=== PATIENT | male | born 1945 | race Caucasian/White ===

== ENCOUNTER 2016-08-02 15:13 | Inpatient (IN) | payer MEDICARE, OTHER ==
[2016-08-02] VITALS (7 sets, daily range): BP systolic 116–129; BP diastolic 60–84; PULSE 89–96; RESP 18–24; TEMP 97.5–98.2; O2SAT 93–96
[~2016-08-02] VITALS: Ht 185.4 cm; Wt 91.5 kg
--- NOTE | 2016-08-02 16:40 | PD ---
HPI Chief Complaint: Respiratory Symptoms Time Seen by Provider: 16:35 Travel History International Travel<30 days: No Contact w/Intl Traveler<30days: No Traveled to known affect area: No History of Present Illness HPI 70-year-old male visiting from [place] with his family presents the emergency department with several day history of shortness of breath and weakness. Patient states he had a head cold last week which is seemingly improved. Patient's family has placed him on O2 via nasal cannula over the past 2 days as they were traveling, and his sister is on oxygen normally. Patient denies fever, chills, or productive cough. Patient denies chest pain. Patient has a history of CHF in the past and has an implanted defibrillator/ pacemaker, which he states was just interrogated approximately one week ago. Patient denies abdominal pain, nausea, vomiting, or diarrhea. Patient states his shortness of breath is worse with exertion. His appetite is normal. States been sleeping well. Patient is allergic to sulfa and iodine needed to contrast media. [facility] Social History Alcohol Use: No Tobacco Use: No Substance Use: No Allergies-Medications (Allergen,Severity, Reaction): Coded Allergies: Iodinated Contrast Media (Verified Allergy, Unknown, 08/02/16) Sulfa (Verified Allergy, Unknown, 08/02/16) Reported Meds & Prescriptions Reported Meds & Active Scripts Active Reported Travatan Z Opth Drops (Travoprost) 0.004 % Soln 1 Drop RIGHT EYE HS Carvedilol 6.25 Mg Tab 6.25 Mg PO BID Zocor (Simvastatin) 20 Mg Tab 20 Mg PO HS Nitroglycerin SL (Nitroglycerin) 0.4 Mg Subl 0.4 Mg SL DIRECTED PRN ONE TABLET UNDER THE TONGUE NEEDED FOR CHEST PAIN, MAY REPEAT EVERY FIVE MINUTES FOR A TOTAL OF 3 DOSES OR CALL 911 IF NO RELIEF Centrum Silver Adult 50+ (Multiple Vitamins W/ Minerals) 1 Tab Tab 1 Tab PO DAILY Levothyroxine (Levothyroxine Sodium) 50 Mcg Tab 50 Mcg PO DAILY Levemir Flextouch Pen Inj (Insulin Detemir) 300 unit/3 ML Pen 40 Units SQ HS Isosorbide Mononitrate ER (Isosorbide Mononitrate) 30 Mg Adriana 30 Mg PO DAILY Lasix (Furosemide) 40 Mg Tab 40 Mg PO DAILY Plavix (Clopidogrel Bisulfate) 75 Mg Tab 75 Mg PO DAILY Azopt Opth Drops (Brinzolamide) 1% Susp 1 Drop RIGHT EYE BID Combigan Opth Drops (Brimonidine-Timolol Opth Drops) 0.2-0.5% Soln 1 Drop RIGHT EYE Q12HR Aspirin EC Low Dose (Aspirin) 81 Mg Tabec 81 Mg PO DAILY Refresh Opth Drops (Polyvinyl Alcohol-Povidone Opth Drops) 1.4-0.6% Drops 1 Drop EACH EYE TID PRN Review of Systems Except as stated in HPI: all other systems reviewed are Neg General / Constitutional: No: Fever, Chills Eyes: No: Visual changes HENT: No: Headaches Cardiovascular: Positive: Dyspnea on exertion, No: Chest Pain or Discomfort, Palpitations, Irregular Rhythm, Tachycardia, Diaphoresis, Syncope, Varicosities , Edema, Cyanosis, Varicosities, Phlebitis, Claudication Respiratory: Positive: Shortness of Breath, No: Cough, Wheezing, Sneezing, Orthopnea, Hemoptysis, Night Sweats, Pleuritic Pain Gastrointestinal: No: Nausea, Vomiting, Diarrhea, Abdominal Pain Genitourinary: No: Dysuria Musculoskeletal: No: Pain Skin: No Rash Neurologic: No: Weakness Psychiatric: No: Depression Endocrine: No: Polydipsia Hematologic/Lymphatic: No: Easy Bruising Physical Exam Narrative GENERAL: Patient appears in no acute distress. O2 sat on room air is 88%. SKIN: Warm and dry. Normal color. Normal turgor HEAD: Atraumatic. Normocephalic. EYES: Pupils equal and round. No scleral icterus. No injection or drainage. ENT: No nasal bleeding or discharge. Mucous membranes pink and moist. TMs are clear bilaterally. No sinus tenderness. No significant pharyngeal swelling or irritation. Airway is patent. NECK: Trachea midline. No JVD. Neck is supple and nontender. CARDIOVASCULAR: Regular rate and rhythm. No murmurs gallops or rubs appreciated. RESPIRATORY: No accessory muscle use. Breath sounds equal bilaterally. Breath sounds are distant bilaterally. No significant wheezes or crackles appreciated with auscultation. GASTROINTESTINAL: Abdomen soft, non-tender, nondistended. Hepatic and splenic margins not palpable. MUSCULOSKELETAL: Extremities without clubbing, cyanosis, or edema. No obvious deformities. NEUROLOGICAL: Awake and alert. No obvious cranial nerve deficits. Motor grossly within normal limits. Five out of 5 muscle strength in the arms and legs. Normal speech. PSYCHIATRIC: Appropriate mood and affect; insight and judgment normal. Data Data Last Documented VS Vital Signs Date Time Temp Pulse Resp B/P Pulse Ox O2 Delivery O2 Flow Rate FiO2 08/02/16 18:10 96 121/76 94 Nasal Cannula 2 08/02/16 16:24 98.2 08/02/16 15:15 20 Orders Complete Blood Count With Diff (08/02/16 16:32) Comprehensive Metabolic Panel (08/02/16 16:32) B-Type Natriuretic Peptide (08/02/16 16:32) Act Partial Throm Time (Ptt) (08/02/16 16:32) Prothrombin Time / Inr (Pt) (08/02/16 16:32) Magnesium (Mg) (08/02/16 16:32) Ckmb (Isoenzyme) Profile (08/02/16 16:32) Troponin I (08/02/16 16:32) Iv Access Insert/Monitor (08/02/16 16:32) Electrocardiogram (08/02/16 16:32) Ecg Monitoring (08/02/16 16:32) Oximetry (08/02/16 16:32) Oxygen Administration (08/02/16 16:32) Chest, Single Ap (08/02/16 16:32) Sodium Chloride 0.9% Flush (Ns Flush) (08/02/16 16:45) Blood Gas Venous (Vbg) (08/02/16 16:32) Aspirin Chew (Aspirin Chew) (08/02/16 17:45) Nitroglycerin 2% Oint (Nitroglycerin 2% (08/02/16 17:45) D-Dimer (08/02/16 17:54) Heparin Infusion DARRIAN.Q1H (08/02/16 18:01) Heparin Inj (Heparin Inj) (08/02/16 18:15) Heparin-D5w Inj (Heparin-D5w Inj) (08/02/16 18:15) Act Partial Throm Time (Ptt) (08/02/16 18:01) Prothrombin Time / Inr (Pt) (08/02/16 18:01) Cbc No Diff, Includes Plts (08/02/16 18:01) Cbc No Diff, Includes Plts (08/05/16 06:00) Act Partial Throm Time (Ptt) (08/03/16 01:01) Occult Blood (Hemoccult) Stool (08/02/16 18:01) Admit Order (Ed Use Only) (08/02/16 18:09) Consult Cardiology (08/02/16 ) Labs Laboratory Tests Test 08/02/16 08/02/16 17:00 17:05 Blood Gas Puncture Site DRAWN BY RN Blood Gas Patient Temperature 98.6 Venous Blood pH 7.34 Venous Blood Partial Pressure 59 mmHg CO2 Venous Blood Partial Pressure 39 mmHg O2 Venous Blood HCO3 31 mmol/L Venous Blood Oxygen Saturation 69 % Venous Blood Oxygen Content 12.0 Vol % Venous Blood Base Excess 5.1 mmol/L Oxygen Delivery Device ROOM AIR Blood Gas Inspired Oxygen 21 % White Blood Count 9.1 TH/MM3 Red Blood Count 3.74 MIL/MM3 Hemoglobin 12.3 GM/DL Hematocrit 36.9 % Mean Corpuscular Volume 98.7 FL Mean Corpuscular Hemoglobin 32.9 PG Mean Corpuscular Hemoglobin 33.3 % Concent Red Cell Distribution Width 15.0 % Platelet Count 213 TH/MM3 Mean Platelet Volume 8.9 FL Neutrophils (%) (Auto) 62.6 % Lymphocytes (%) (Auto) 19.6 % Monocytes (%) (Auto) 11.4 % Eosinophils (%) (Auto) 5.0 % Basophils (%) (Auto) 1.4 % Neutrophils # (Auto) 5.7 TH/MM3 Lymphocytes # (Auto) 1.8 TH/MM3 Monocytes # (Auto) 1.0 TH/MM3 Eosinophils # (Auto) 0.5 TH/MM3 Basophils # (Auto) 0.1 TH/MM3 CBC Comment DIFF FINAL Differential Comment Prothrombin Time 10.6 SEC Prothromb Time International 1.0 RATIO Ratio Activated Partial 31.4 SEC Thromboplast Time Sodium Level 134 MEQ/L Potassium Level 4.4 MEQ/L Chloride Level 97 MEQ/L Carbon Dioxide Level 32.4 MEQ/L Anion Gap 5 MEQ/L Blood Urea Nitrogen 35 MG/DL Creatinine 1.71 MG/DL Estimat Glomerular Filtration 40 ML/MIN Rate Random Glucose 197 MG/DL Calcium Level 9.0 MG/DL Magnesium Level 2.1 MG/DL Total Bilirubin 0.8 MG/DL Aspartate Amino Transf 28 U/L (AST/SGOT) Alanine Aminotransferase 14 U/L (ALT/SGPT) Alkaline Phosphatase 49 U/L Total Creatine Kinase 62 U/L Troponin I 3.18 NG/ML Total Protein 7.5 GM/DL Albumin 3.0 GM/DL MDM Medical Decision Making Medical Screen Exam Complete: Yes Emergency Medical Condition: Yes Differential Diagnosis Hypoxemia. Dyspnea. Exertional dyspnea. CHF. Cardiac syndrome. PE. Narrative Course Patient is medically stable at time of exam. Patient is placed on 4 L oxygen via nasal cannula which brings his O2 sat to 94. EKG is ordered. Labs ordered including CBC, CMP, cardiac panel, proBNP. Venous blood gas is ordered. Chest x-ray is ordered. Chest x-ray shows borderline prominent heart size with some interstitial edema characteristics of some degree of vascular congestion or volume overload. #2 minimal atelectatic changes above the left hemidiaphragm per radiologist. CBC shows mild anemia with a hemoglobin of 12.3. Otherwise no significant findings. Venous blood gas shows a PCO2 of 59, HCO3 of 31, O2 saturation of 69, base excess of 5.1. And a pH of 7.34. Chemistries significant for BUN of 35, creatinine 1.71, random glucose of 197, positive troponin 3.18, and slightly low sodium of 134. Carbon dioxide elevated at 32.4. EKG shows electronic ventricular pacemaker rhythm. Patient is discussed with Dr. Lee, and she sees the patient as well. Patient is given aspirin 324 mg by mouth as well as 1 inch nitroglycerin ointment topically. D-dimer is added to his lab work. Call was placed to the hospitalist for admission. 1810 hrs. patient was discussed with Dr. Espinoza, who recommended admission for the patient. Orders for heparinization are placed. Call was placed to Dr. Love, the public stenographer admission discharge rn today and the patient was discussed. Consult placed for Dr. Love. Diagnosis Primary Impression: Elevated troponin Additional Impressions: Hypoxic Dyspnea on exertion Admitting Information Admitting Physician Requests: Admit Condition: Stable Samuel Mclaughlin Aug 02, 2016 16:40
[2016-08-02] MEDS ORDERED: SODIUM CHLORIDE 0.9% FLUSH 10 ML FLUSH IVF PRN (16:45)
--- NOTE | 2016-08-02 17:16 | RADRPT ---
EXAM DATE/TIME: 08/02/2016 16:39 [facility] COMPARISON: No previous studies available for comparison. INDICATIONS : Shortness of breath. MEDICAL HISTORY : None. SURGICAL HISTORY : Pacemaker. CABG. ENCOUNTER: Initial ACUITY: 3 days PAIN SCORE: 0/10 LOCATION: Bilateral chest FINDINGS: A single view of the chest demonstrates mild interstitial prominence bilaterally suggesting some degr ee of vascular congestion or volume overload. Minimal atelectatic changes above the left hemidiaphrag m. Surgical clips and median sternotomy wires are characteristic of prior CABG. Heart size is borderl ine prominent. There is a left subclavian bipolar pacer which is radiographically intact. Osseous str uctures are intact as well. CONCLUSION: 1. Borderline prominent heart size with some interstitial edema characteristic of some degree of vasc ular congestion or volume overload. 2. Minimal atelectatic changes above the left hemidiaphragm. Ken Khanna MD on August 02, 2016 at 17:12 Board Certified Radiologist. This report was verified electronically.
[2016-08-02 17:19] LABS: BLOOD GAS VENOUS BASE EXCESS 5.1 mmol/L (-2-2); BLOOD GAS VENOUS HCO3 31 mmol/L (22-26); BLOOD GAS VENOUS O2 HGB SAT 69 % (70-76); BLOOD GAS VENOUS PCO2 59 mmHg (44-48); BLOOD GAS VENOUS PO2 39 mmHg (35-40); BLOOD GAS VENOUS pH 7.34 (7.360-7.400); TEMP CORR TO 98.6
[2016-08-02 17:20] LABS: AUTOMATED NEUTROPHIL # 5.7 TH/MM3 (1.8-7.7); BASOPHIL # 0.1 TH/MM3 (0-0.2); BASOPHIL % 1.4 % (0.0-2.0); EOSINOPHIL # 0.5 TH/MM3 (0-0.4); HEMATOCRIT 36.9 % (39.0-51.0); HEMO FLAGS DIFF FINAL; LYMPH % 19.6 % (9.0-44.0); LYMPHOCYTE # 1.8 TH/MM3 (1.0-4.8); MEAN CELL VOLUME 98.7 FL (80.0-100.0); MEAN CORPUSCULAR HEMOGLOBIN 32.9 PG (27.0-34.0); MEAN CORPUSCULAR HGB CONC 33.3 % (32.0-36.0); MONO % 11.4 % (0.0-8.0); NEUT % 62.6 % (16.0-70.0); PLATELET COUNT 213 TH/MM3 (150-450); RED BLOOD COUNT 3.74 MIL/MM3 (4.50-5.90); WHITE BLOOD COUNT 9.1 TH/MM3 (4.0-11.0)
[2016-08-02 17:20] LABS: CRITICAL VALUE YES; FIO2 21 %; OXYGEN DEVICE ROOM AIR; STAT YES
[2016-08-02] MEDS ORDERED: AZOP1SUS RIGHT EYE (17:27)
[2016-08-02] MEDS ORDERED: COMB0.2S RIGHT EYE (17:27)
[2016-08-02] MEDS ORDERED: FURO1TAB60 PO (17:27)
[2016-08-02] MEDS ORDERED: LEVO50TA4 PO (17:27)
[2016-08-02] MEDS ORDERED: ASPI81TA2 PO (17:27)
[2016-08-02] MEDS ORDERED: TRAV0.00 RIGHT EYE (17:27)
[2016-08-02] MEDS ORDERED: ZOCO20TA PO (17:27)
[2016-08-02] MEDS ORDERED: NITR1SUB3 SL (17:27)
[2016-08-02] MEDS ORDERED: ISOS30TA3 PO (17:27)
[2016-08-02] MEDS ORDERED: MULT1TAB PO (17:27)
[2016-08-02] MEDS ORDERED: INSU1INJ5 SQ (17:27)
[2016-08-02] MEDS ORDERED: CARV6.252 PO (17:27)
[2016-08-02] MEDS ORDERED: PLAV75TA29 PO (17:27)
[2016-08-02] MEDS ORDERED: REFRDRO EACH EYE (17:27)
[2016-08-02 17:33] LABS: ANION GAP 5 MEQ/L (5-15); AST (GOT) 28 U/L (15-37); BICARBONATE 32.4 MEQ/L (21.0-32.0); BLOOD UREA NITROGEN 35 MG/DL (7-18); CHLORIDE 97 MEQ/L (98-107); GLOMERULAR FILTRATION RATE 40 ML/MIN (>89); MAGNESIUM 2.1 MG/DL (1.5-2.5); POTASSIUM 4.4 MEQ/L (3.5-5.1); SODIUM (NA) 134 MEQ/L (136-145)
[2016-08-02 17:37] LABS: ALKALINE PHOSPHATASE 49 U/L (45-117); ALT (GPT) 14 U/L (12-78); CREATINE KINASE 62 U/L (39-308); TOTAL BILIRUBIN ADULT 0.8 MG/DL (0.2-1.0)
[2016-08-02 17:38] LABS: APTT (PATIENT) 31.4 SEC (24.3-30.1); PROTHROMBIN TIME - PATIENT 10.6 SEC (9.8-11.6)
[2016-08-02] MEDS ORDERED: NITROGLYCERIN 2% OINT 1 GM PACKET TOP ONE (17:45)
[2016-08-02] MEDS ORDERED: ASPIRIN 81 MG CHEW TAB PO ONE (17:45)
[2016-08-02] MEDS ORDERED: HEPARIN SODIUM - IV 10,000 UNITS/10 ML VIAL IV ONE (18:15)
[2016-08-02] MEDS ORDERED: SODIUM CHLORIDE 0.9% FLUSH 10 ML FLUSH IV FLUSH PRN (19:15)
[2016-08-02] MEDS ORDERED: POLYVINYL ALC-POVIDONE 1.4/0.6% PF OPTH SOLN 0.4 ML 30 CT EACH EYE PRN (19:15)
[2016-08-02] MEDS ORDERED: ACETAMINOPHEN/HYDROcodone 325 MG/5 MG TAB PO PRN (19:15)
[2016-08-02] MEDS ORDERED: GLUCAGON 1 MG/ML VIAL OTHER PRN (19:15)
[2016-08-02] MEDS ORDERED: SENNOSIDES 8.6 MG TAB PO PRN (19:15)
[2016-08-02] MEDS ORDERED: DEXTROSE 50% IN WATER 50 ML VIAL(D50) IV PUSH PRN (19:15)
[2016-08-02] MEDS ORDERED: NITROGLYCERIN 0.4 MG SL 25 TABS/BTL SL PRN (19:15)
[2016-08-02] MEDS ORDERED: BISACODYL 10 MG SUPP PR PRN (19:15)
[2016-08-02] MEDS ORDERED: ACETAMINOPHEN 325 MG TAB PO PRN ×2 (19:15)
[2016-08-02] MEDS ORDERED: NALOXONE HCL 0.4 MG/ML AMP IV PRN (19:15)
[2016-08-02] MEDS ORDERED: MORPHINE SULFATE 4 MG/ML INJ IV PRN (19:15)
[2016-08-02] MEDS: HEPARIN-D5W INJ 250 ML IV SCH (19:19)
--- NOTE | 2016-08-02 19:27 | PD ---
Data Data Last Documented VS Vital Signs Date Time Temp Pulse Resp B/P Pulse Ox O2 Delivery O2 Flow Rate FiO2 08/02/16 18:10 96 121/76 94 Nasal Cannula 2 08/02/16 16:24 98.2 08/02/16 15:15 20 Orders Complete Blood Count With Diff (08/02/16 16:32) Comprehensive Metabolic Panel (08/02/16 16:32) B-Type Natriuretic Peptide (08/02/16 16:32) Act Partial Throm Time (Ptt) (08/02/16 16:32) Prothrombin Time / Inr (Pt) (08/02/16 16:32) Magnesium (Mg) (08/02/16 16:32) Ckmb (Isoenzyme) Profile (08/02/16 16:32) Troponin I (08/02/16 16:32) Iv Access Insert/Monitor (08/02/16 16:32) Electrocardiogram (08/02/16 16:32) Ecg Monitoring (08/02/16 16:32) Oximetry (08/02/16 16:32) Oxygen Administration (08/02/16 16:32) Chest, Single Ap (08/02/16 16:32) Sodium Chloride 0.9% Flush (Ns Flush) (08/02/16 16:45) Blood Gas Venous (Vbg) (08/02/16 16:32) Aspirin Chew (Aspirin Chew) (08/02/16 17:45) Nitroglycerin 2% Oint (Nitroglycerin 2% (08/02/16 17:45) D-Dimer (08/02/16 17:54) Heparin Infusion DARRIAN.Q1H (08/02/16 18:01) Heparin Inj (Heparin Inj) (08/02/16 18:15) Heparin-D5w Inj (Heparin-D5w Inj) (08/02/16 18:15) Act Partial Throm Time (Ptt) (08/02/16 18:01) Prothrombin Time / Inr (Pt) (08/02/16 18:01) Cbc No Diff, Includes Plts (08/02/16 18:01) Cbc No Diff, Includes Plts (08/05/16 06:00) Act Partial Throm Time (Ptt) (08/03/16 01:01) Occult Blood (Hemoccult) Stool (08/02/16 18:01) Admit Order (Ed Use Only) (08/02/16 18:09) Consult Cardiology (08/02/16 ) Labs Laboratory Tests Test 08/02/16 08/02/16 08/02/16 17:00 17:05 17:50 Blood Gas Puncture Site DRAWN BY RN Blood Gas Patient Temperature 98.6 Venous Blood pH 7.34 Venous Blood Partial Pressure 59 mmHg CO2 Venous Blood Partial Pressure 39 mmHg O2 Venous Blood HCO3 31 mmol/L Venous Blood Oxygen Saturation 69 % Venous Blood Oxygen Content 12.0 Vol % Venous Blood Base Excess 5.1 mmol/L Oxygen Delivery Device ROOM AIR Blood Gas Inspired Oxygen 21 % White Blood Count 9.1 TH/MM3 Red Blood Count 3.74 MIL/MM3 Hemoglobin 12.3 GM/DL Hematocrit 36.9 % Mean Corpuscular Volume 98.7 FL Mean Corpuscular Hemoglobin 32.9 PG Mean Corpuscular Hemoglobin 33.3 % Concent Red Cell Distribution Width 15.0 % Platelet Count 213 TH/MM3 Mean Platelet Volume 8.9 FL Neutrophils (%) (Auto) 62.6 % Lymphocytes (%) (Auto) 19.6 % Monocytes (%) (Auto) 11.4 % Eosinophils (%) (Auto) 5.0 % Basophils (%) (Auto) 1.4 % Neutrophils # (Auto) 5.7 TH/MM3 Lymphocytes # (Auto) 1.8 TH/MM3 Monocytes # (Auto) 1.0 TH/MM3 Eosinophils # (Auto) 0.5 TH/MM3 Basophils # (Auto) 0.1 TH/MM3 CBC Comment DIFF FINAL Differential Comment Prothrombin Time 10.6 SEC Prothromb Time International 1.0 RATIO Ratio Activated Partial 31.4 SEC Thromboplast Time Sodium Level 134 MEQ/L Potassium Level 4.4 MEQ/L Chloride Level 97 MEQ/L Carbon Dioxide Level 32.4 MEQ/L Anion Gap 5 MEQ/L Blood Urea Nitrogen 35 MG/DL Creatinine 1.71 MG/DL Estimat Glomerular Filtration 40 ML/MIN Rate Random Glucose 197 MG/DL Calcium Level 9.0 MG/DL Magnesium Level 2.1 MG/DL Total Bilirubin 0.8 MG/DL Aspartate Amino Transf 28 U/L (AST/SGOT) Alanine Aminotransferase 14 U/L (ALT/SGPT) Alkaline Phosphatase 49 U/L Total Creatine Kinase 62 U/L Troponin I 3.18 NG/ML Total Protein 7.5 GM/DL Albumin 3.0 GM/DL B-Type Natriuretic Peptide 1063 PG/ML [facility] Supervised Visit with ANA: Yes Narrative Course The history, exam, and medical decision-making in the associated midlevel provider note were completed with my assistance. I reviewed and agree with the findings presented. I attest that I had a [id number] encounter with the patient on the same day, and personally performed and documented my assessment and findings in the medical record. *My assessment and Findings: This is a 70-year-old male who has a history of heart disease who presents to the emergency department with 3 days of increasing shortness of breath. He was found to have a troponin of 3. EKG was a paced rhythm and nonischemic. I suspect the patient's symptoms are in the setting of an nSTEMI, however pulmonary embolism continues to be on the differential. Patient will be admitted and anticoagulated Diagnosis Primary Impression: Elevated troponin Additional Impressions: Dyspnea on exertion Hypoxic Condition: Stable Natalee Lee MD Aug 02, 2016 19:27
--- NOTE | 2016-08-02 19:42 | HHI.HP ---
HPI Service [facility] Primary Care Physician No Primary Care Physician Admission Diagnosis Elevated Troponin/Hypoxic Diagnoses: Chief Complaint: Shortness of breath Travel History International Travel<30 Days: No Contact w/Intl Traveler <30 Da: No Traveled to Known Affected Are: No History of Present Illness This is a 70-year-old male with a history of congestive heart failure, cardiomyopathy status post AICD, coronary artery disease status post bypass, PAD , diabetes mellitus, chronic kidney disease stage is not known, hypertension, hyperlipidemia, hypothyroidism and glaucoma. He presents to the emergency department with several day history of shortness of breath and weakness. He has dyspnea on exertion, orthopnea but denies PND, weight gain and lower extremity swelling. Claims he is compliant with his medications as well as fluid and salt restriction. Patient states he had a head cold last week which is seemingly improved. Patient's family has placed him on O2 via nasal cannula over the past 2 days as they were traveling, and his sister is on oxygen normally. Patient denies fever, chills, or chest pain. Patient has been coughing. In the emergency department, he was found to have elevated troponin and was given aspirin and started on IV heparin drip after discussion with cardiology. Patient is not a good historian but reports he had unremarkable stress test this year. Patient has a history of CHF and has an implanted defibrillator/pacemaker, which he states was just interrogated approximately one week ago. Patient denies abdominal pain, nausea, vomiting, or diarrhea. Review of Systems Constitutional: COMPLAINS OF: Fatigue, DENIES: Diaphoretic episodes, Fever, Weight gain, Weight loss, Chills, Dizziness, Change in appetite, Night Sweats Endocrine: DENIES: Heat/cold intolerance, Polydipsia, Polyuria, Polyphagia Eyes: DENIES: Blurred vision, Diplopia, Vision loss, Photosensitivity Ears, nose, mouth, throat: DENIES: Tinnitus, Vertigo, Throat pain, Hoarseness, Epistaxis, Odynophagia Respiratory: COMPLAINS OF: Cough, Sputum production, Shortness of breath, DENIES: Wheezing, Hemoptysis Cardiovascular: COMPLAINS OF: Dyspnea on Exertion, DENIES: Chest pain, Palpitations, Syncope, PND, Lower Extremity Edema, Orthopnea, Claudication Gastrointestinal: DENIES: Abdominal pain, Black stools, Bloody stools, Constipation, Diarrhea, Nausea, Vomiting, Difficulty Swallowing, Anorexia Genitourinary: DENIES: Urinary frequency, Urinary incontinence, Urgency, Hematuria, Dysuria, Nocturia, Penile Discharge Integumentary: DENIES: Rash Neurologic: DENIES: Headache, Localized weakness, Seizures, Tremor, Poor Balance Psychiatric: DENIES: Anxiety, Confusion, Depression, Hallucinations, Agitation , Suicidal Ideation, Homicidal Ideation, Delusions Past Family Social History Past Medical History As previously mentioned Past Surgical History Eye surgery Reported Medications Travatan Z Opth Drops (Travoprost) 0.004 % Soln 1 Drop RIGHT EYE HS Carvedilol 6.25 Mg Tab 6.25 Mg PO BID Zocor (Simvastatin) 20 Mg Tab 20 Mg PO HS Nitroglycerin SL (Nitroglycerin) 0.4 Mg Subl 0.4 Mg SL DIRECTED PRN ONE TABLET UNDER THE TONGUE NEEDED FOR CHEST PAIN, MAY REPEAT EVERY FIVE MINUTES FOR A TOTAL OF 3 DOSES OR CALL 911 IF NO RELIEF [facility] Adult 50+ (Multiple Vitamins W/ Minerals) 1 Tab Tab 1 Tab PO DAILY Levothyroxine (Levothyroxine Sodium) 50 Mcg Tab 50 Mcg PO DAILY Levemir Flextouch Pen Inj (Insulin Detemir) 300 unit/3 ML Pen 40 Units SQ HS Isosorbide Mononitrate ER (Isosorbide Mononitrate) 30 Mg Adriana 30 Mg PO DAILY Lasix (Furosemide) 40 Mg Tab 40 Mg PO DAILY Plavix (Clopidogrel Bisulfate) 75 Mg Tab 75 Mg PO DAILY Azopt Opth Drops (Brinzolamide) 1% Susp 1 Drop RIGHT EYE BID Combigan Opth Drops (Brimonidine-Timolol Opth Drops) 0.2-0.5% Soln 1 Drop RIGHT EYE Q12HR Aspirin EC Low Dose (Aspirin) 81 Mg Tabec 81 Mg PO DAILY Refresh Opth Drops (Polyvinyl Alcohol-Povidone Opth Drops) 1.4-0.6% Drops 1 Drop EACH EYE TID PRN Allergies: Coded Allergies: Iodinated Contrast Media (Verified Allergy, Unknown, 08/02/16) Sulfa (Verified Allergy, Unknown, 08/02/16) Family History Thyroid disease Social History Does not smoke or drink Physical Exam Vital Signs Vital Signs Date Time Temp Pulse Resp B/P Pulse Ox O2 Delivery O2 Flow Rate FiO2 08/02/16 18:10 96 121/76 94 Nasal Cannula 2 08/02/16 16:38 95 Nasal Cannula 3 08/02/16 16:24 98.2 89 116/68 95 Nasal Cannula 3 08/02/16 15:15 97.7 91 20 129/60 93 Nasal Cannula 2 Physical Exam GENERAL: This is a well-nourished, well-developed patient, in no apparent distress on nasal cannula. SKIN: No rashes, ecchymoses or lesions. Cool and dry. HEAD: Atraumatic. Normocephalic. No temporal or scalp tenderness. EYES: Pupils equal round and reactive. Extraocular motions intact. No scleral icterus. No injection or drainage. ENT: Nose without bleeding, purulent drainage or septal hematoma. Throat without erythema, tonsillar hypertrophy or exudate. Uvula midline. Airway patent. NECK: Trachea midline.+ JVD . Supple, nontender, no meningeal signs. CARDIOVASCULAR: Regular rate and rhythm without murmurs, gallops, or rubs. Distant heart sounds with AICD in place RESPIRATORY: Decreased Breath sounds equal bilaterally. No wheezes or rhonchi. Right basal crackle GASTROINTESTINAL: Abdomen soft, non-tender, nondistended. No guarding. MUSCULOSKELETAL: Extremities without clubbing, cyanosis but with trace leg edema. No joint tenderness, effusion, or edema noted. No calf tenderness. Negative Homans sign bilaterally. NEUROLOGICAL: Awake and alert. Cranial nerves II through XII intact. Motor and sensory grossly within normal limits. Five out of 5 muscle strength in all muscle groups. Normal speech. Laboratory Laboratory Tests Test 08/02/16 08/02/16 08/02/16 08/02/16 17:00 17:05 17:50 18:17 Blood Gas Puncture Site DRAWN BY RN Blood Gas Patient Temperature 98.6 Venous Blood pH 7.34 Venous Blood Partial Pressure 59 CO2 Venous Blood Partial Pressure 39 O2 Venous Blood HCO3 31 Venous Blood Oxygen Saturation 69 Venous Blood Oxygen Content 12.0 Venous Blood Base Excess 5.1 Oxygen Delivery Device ROOM AIR Blood Gas Inspired Oxygen 21 White Blood Count 9.1 Red Blood Count 3.74 Hemoglobin 12.3 Hematocrit 36.9 Mean Corpuscular Volume 98.7 Mean Corpuscular Hemoglobin 32.9 Mean Corpuscular Hemoglobin 33.3 Concent Red Cell Distribution Width 15.0 Platelet Count 213 Mean Platelet Volume 8.9 Neutrophils (%) (Auto) 62.6 Lymphocytes (%) (Auto) 19.6 Monocytes (%) (Auto) 11.4 Eosinophils (%) (Auto) 5.0 Basophils (%) (Auto) 1.4 Neutrophils # (Auto) 5.7 Lymphocytes # (Auto) 1.8 Monocytes # (Auto) 1.0 Eosinophils # (Auto) 0.5 Basophils # (Auto) 0.1 CBC Comment DIFF FINAL Differential Comment Prothrombin Time 10.6 Prothromb Time International 1.0 Ratio Activated Partial 31.4 Thromboplast Time Sodium Level 134 Potassium Level 4.4 Chloride Level 97 Carbon Dioxide Level 32.4 Anion Gap 5 Blood Urea Nitrogen 35 Creatinine 1.71 Estimat Glomerular Filtration 40 Rate Random Glucose 197 Calcium Level 9.0 Magnesium Level 2.1 Total Bilirubin 0.8 Aspartate Amino Transf 28 (AST/SGOT) Alanine Aminotransferase 14 (ALT/SGPT) Alkaline Phosphatase 49 Total Creatine Kinase 62 Troponin I 3.18 Total Protein 7.5 Albumin 3.0 B-Type Natriuretic Peptide 1063 D-Dimer Quantitative (PE/DVT) 3.12 Result Diagram: 08/02/16 1705 08/02/16 1705 Imaging EKG tracing interpreted by me with paced rhythm Chest x-ray film interpreted by me with prominent heart size with interstitial edema Last Impressions Chest X-Ray 08/02/16 1632 Signed Impressions: Service Date/Time: Tuesday, August 02, 2016 16:39 - CONCLUSION: 1. Borderline prominent heart size with some interstitial edema characteristic of some degree of vascular congestion or volume overload. 2. Minimal atelectatic changes above the left hemidiaphragm. Ken Khanna MD Assessment and Plan Problem List: (1) Dyspnea on exertion ICD Code: R06.09 Status: Acute (2) Elevated troponin ICD Code: R74.8 Status: Acute Assessment and Plan This is a 70-year-old male with a history of congestive heart failure, cardiomyopathy status post AICD, coronary artery disease status post bypass, PAD , diabetes mellitus, chronic kidney disease stage is not known, hypertension, hyperlipidemia, hypothyroidism and glaucoma. He presents to the emergency department with several day history of shortness of breath and weakness. He has dyspnea on exertion, orthopnea but denies PND, weight gain and lower extremity swelling. Claims he is compliant with his medications as well as fluid and salt restriction. Patient states he had a head cold last week which is seemingly improved. Patient's family has placed him on O2 via nasal cannula over the past 2 days as they were traveling, and his sister is on oxygen normally. Patient denies fever, chills, or chest pain. Patient has been coughing. In the emergency department, he was found to have elevated troponin and was given aspirin and started on IV heparin drip after discussion with cardiology. Patient is not a good historian but reports he had unremarkable stress test this year. Patient has a history of CHF and has an implanted defibrillator/pacemaker, which he states was just interrogated approximately one week ago. Patient denies abdominal pain, nausea, vomiting, or diarrhea. Acute on chronic systolic heart failure exacerbation with history of cardiomyopathy status post AICD. Start IV diuresis with Lasix 40 mg every 12H and monitor response. Check BMP in the morning. CHF education, strict I and O , monitor weight and check echocardiogram Acute on chronic kidney disease stage is not known. Nonoliguric. Patient and family aware it might get worse with diuresis. Avoid nephrotoxins Elevated troponin with a history of CAD status post bypass. Patient denies chest pain. EKG with paced rhythm. Trend cardiac enzymes and continue aspirin , nitrates, Coreg and heparin drip. Cardiology consult Normocytic normochromic anemia . No gross bleeding. Repeat CBC in the morning Elevated d-dimer secondary to above. Patient denies chest pain. Consider VQ scan unable to do CTA secondary to kidney disease. Patient already on heparin Chronic medical conditions of PAD, diabetes mellitus, hypertension, hyperlipidemia, hypothyroidism and glaucoma. Continue outpatient medications as appropriate. Monitor fingersticks with sliding scale coverage DVT prophylaxis patient on heparin drip with SCD Code Status full Discussed Condition With pt and family Physician Certification 2 Midnight Certification Type: Admission for Inpatient Services Order for Inpatient Services The services are ordered in accordance with Medicare regulations or non- Medicare payer requirements, as applicable. In the case of services not specified as inpatient-only, they are appropriately provided as inpatient services in accordance with the 2-midnight benchmark. Estimated LOS (days): 2 days is the estimated time the patient will need to remain in the hospital, assuming treatment plan goals are met and no additional complications. Post-Hospital Plan: Not yet determined Abando,Vince MD Aug 02, 2016 19:42 Esvin Guallpa MD Aug 02, 2016 19:42
[2016-08-02] MEDS ORDERED: FUROSEMIDE 40 MG/4 ML VIAL IV PUSH ONE (19:45)
[2016-08-02 20:30] LABS: BACTERIA, URINE RARE /hpf; BLOOD, URINE NEG (NEG); COMMENT (UR) CULT NOT INDICATED; CULTURE IF INDICATED CULT NOT INDICATED; GLUCOSE,URINE NEG (NEG); KETONE, URINE NEG (NEG); NITRITE,URINE NEG (NEG); SQUAMOUS EPITHELIAL CELL URINE <1 /hpf (0-5); URINE COLOR YELLOW (YELLW/STRAW)
[2016-08-02] MEDS: INSULIN ASPART SUPPLEMENTAL SCALE SQ SCH (20:57)
[2016-08-02] MEDS ORDERED: BRINZOLAMIDE RIGHT EYE SCH (21:00)
[2016-08-02] MEDS ORDERED: NON-FORMULARY DRUG (Brimonidine-Timolol Opth Drops (Combigan Opth Drops) 1 DROP) RIGHT EYE SCH (21:00)
[2016-08-02] MEDS: INSULIN DETEMIR 100 UNITS/ML VIAL SQ SCH (21:00)
[2016-08-02] MEDS: LATANOPROST 0.005% OPHT SOLN 2.5 ML BTL RIGHT EYE SCH (21:27)
[2016-08-02] MEDS: BRIMONIDINE TARTRATE 0.2% OPHT SOLN 5 ML BTL RIGHT EYE SCH (21:28)
[2016-08-02] MEDS: CARVEDILOL 6.25 MG TAB PO SCH (21:28)
[2016-08-02] MEDS: DOCUSATE SODIUM 100 MG CAP PO SCH (21:28)
[2016-08-02] MEDS: TIMOLOL MALEATE 0.5% OPHT SOLN 5 ML BTL RIGHT EYE SCH (21:28)
[2016-08-02] MEDS: PRAVASTATIN SOD 40 MG TAB PO SCH (21:28)
[2016-08-02] MEDS: SODIUM CHLORIDE 0.9% FLUSH 10 ML FLUSH IV FLUSH SCH (21:29)
[2016-08-02] MEDS ORDERED: NITROGLYCERIN 2% OINT 1 GM PACKET TOP SCH (23:30)
[2016-08-03 04:22] VITALS: BP 116/56; PULSE 98; RESP 24; TEMP 98.3; O2SAT 95
[2016-08-03] MEDS: LEVOTHYROXINE SODIUM 50 MCG TAB PO SCH (05:30)
[2016-08-03] MEDS: NITROGLYCERIN 2% OINT 1 GM PACKET TOP SCH ×3 (05:30→21:58)
[2016-08-03] MEDS: INSULIN ASPART SUPPLEMENTAL SCALE SQ SCH ×4 (06:08→21:00)
[2016-08-03 06:15] LABS: AUTOMATED NEUTROPHIL # 8.6 TH/MM3 (1.8-7.7); BASOPHIL # 0.1 TH/MM3 (0-0.2); BASOPHIL % 1.2 % (0.0-2.0); EOSINOPHIL # 0.5 TH/MM3 (0-0.4); EOSINOPHIL % 4.1 % (0.0-4.0); HEMATOCRIT 36.9 % (39.0-51.0); HEMO FLAGS DIFF FINAL; LYMPH % 12.3 % (9.0-44.0); LYMPHOCYTE # 1.5 TH/MM3 (1.0-4.8); MEAN CELL VOLUME 99.4 FL (80.0-100.0); MEAN CORPUSCULAR HEMOGLOBIN 32.8 PG (27.0-34.0); MONO % 9.9 % (0.0-8.0); NEUT % 72.5 % (16.0-70.0); PLATELET COUNT 197 TH/MM3 (150-450); RED BLOOD COUNT 3.71 MIL/MM3 (4.50-5.90); RED CELL DISTRIBUTION WIDTH 14.8 % (11.6-17.2); WHITE BLOOD COUNT 11.8 TH/MM3 (4.0-11.0)
[2016-08-03 06:47] LABS: BICARBONATE 33.3 MEQ/L (21.0-32.0); POTASSIUM 4.1 MEQ/L (3.5-5.1)
[2016-08-03] MEDS ORDERED: ONDANSETRON HCL 4 MG/2 ML VIAL IV PUSH PRN (07:45)
[2016-08-03 08:00] VITALS: BP 139/61; PULSE 109; RESP 26; TEMP 98.4; O2SAT 95
[2016-08-03] MEDS: BRIMONIDINE TARTRATE 0.2% OPHT SOLN 5 ML BTL RIGHT EYE SCH ×2 (09:00→21:00)
[2016-08-03] MEDS: TIMOLOL MALEATE 0.5% OPHT SOLN 5 ML BTL RIGHT EYE SCH ×2 (09:00→21:00)
[2016-08-03] MEDS: SODIUM CHLORIDE 0.9% FLUSH 10 ML FLUSH IV FLUSH SCH ×2 (09:00→21:00)
[2016-08-03] MEDS: CARVEDILOL 6.25 MG TAB PO SCH ×2 (10:22→21:57)
[2016-08-03] MEDS: DOCUSATE SODIUM 100 MG CAP PO SCH ×2 (10:22→21:57)
[2016-08-03] MEDS: MULTIVITAMIN HEMATINIC THERAPEUTIC TAB PO SCH (10:22)
[2016-08-03] MEDS: FUROSEMIDE 40 MG/4 ML VIAL IV PUSH SCH ×2 (10:22→16:22)
[2016-08-03] MEDS: CLOPIDOGREL 75 MG TAB PO SCH (10:22)
[2016-08-03 12:00] VITALS: BP 135/60; PULSE 110; RESP 24; TEMP 98.2; O2SAT 95
[2016-08-03 13:44] VITALS: O2SAT 94
[2016-08-03 16:00] VITALS: BP 121/69; PULSE 99; RESP 20; TEMP 98.9; O2SAT 95
--- NOTE | 2016-08-03 16:26 | HHI.PR ---
Subjective Remarks Follow up for shortness of breath, weakness, NSTEMI. Mr. Damico is doing well. Denies any chest pain, fever, chills. He is breathing pretty well right now. He is currently on heparin drip. Objective Vitals Vital Signs Date Time Temp Pulse Resp B/P Pulse Ox O2 Delivery O2 Flow Rate FiO2 08/03/16 13:44 94 Nasal Cannula 3.00 08/03/16 12:00 98.2 110 24 135/60 95 08/03/16 08:00 98.4 109 26 139/61 95 08/03/16 08:00 Nasal Cannula 4.00 08/03/16 04:22 98.3 98 24 116/56 95 08/02/16 23:13 89 08/02/16 23:06 Nasal Cannula 4.00 08/02/16 22:50 97.5 89 24 127/70 96 08/02/16 22:14 94 Nasal Cannula 4.00 08/02/16 21:42 94 18 127/84 95 Nasal Cannula 2 08/02/16 18:10 96 121/76 94 Nasal Cannula 2 08/02/16 16:38 95 Nasal Cannula 3 08/02/16 16:24 98.2 89 116/68 95 Nasal Cannula 3 I/O 08/02/16 08/02/16 08/02/16 08/03/16 08/03/16 08/03/16 07:00 15:00 23:00 07:00 15:00 23:00 Intake Total 0 ml Output Total 600 ml Balance -600 ml Intake Oral 0 ml Output Urine Total 600 ml # Bowel Movements 0 Result Diagram: 08/03/16 0513 08/03/16 0513 Imaging Last Impressions Chest X-Ray 08/02/16 1632 Signed Impressions: Service Date/Time: Tuesday, August 02, 2016 16:39 - CONCLUSION: 1. Borderline prominent heart size with some interstitial edema characteristic of some degree of vascular congestion or volume overload. 2. Minimal atelectatic changes above the left hemidiaphragm. Kne Khanna MD Objective Remarks GENERAL: Alert, NAD. SKIN: Warm and dry. HEAD: Normocephalic. EYES: No scleral icterus. No injection or drainage. NECK: Supple, trachea midline. No JVD or lymphadenopathy. CARDIOVASCULAR: Regular rate and rhythm without murmurs, gallops, or rubs. RESPIRATORY: Breath sounds equal bilaterally. No accessory muscle use. GASTROINTESTINAL: Abdomen soft, non-tender, nondistended. MUSCULOSKELETAL: No cyanosis, or edema. BACK: Nontender without obvious deformity. No CVA tenderness. Procedures None. A/P Problem List: (1) Dyspnea on exertion ICD Code: R06.09 Status: Acute (2) NSTEMI (non-ST elevated myocardial infarction) ICD Code: I21.4 Status: Acute (3) CAD (coronary artery disease) ICD Code: I25.10 Status: Acute (4) Ischemic cardiomyopathy ICD Code: I25.5 Status: Acute (5) DM (diabetes mellitus) ICD Code: E11.9 Status: Acute (6) PVD (peripheral vascular disease) ICD Code: I73.9 Status: Acute Assessment and Plan Mr. Damico is a 70 year old male with a history of ischemic cardiomyopathy, CAD, PVD, DM, hypothyroidism who presented to the ED due to shortness of breath and weakness. Initial work up indicated troponin 3.18. Cardiology was contacted by ED and patient was started on heparin drip. - Acute NSTEMI - CAD s/p CABG - Ischemic cardiomyopathy - s/p AICD placement. - Acute on chronic systolic congestive heart failure - Troponins 3.18, 2.74, 2.01. - Continue heparin drip, Aspirin, Plavix, Carvedilol. NTG PRN. - Lasix 40mg IV BID. - Continue Statin - will discuss with patient if he has any trouble with Lipitor. Lipitor 80mg QHS would be ideal. - Cardiology consult pending with regards to NSTEMI. - If no intervention is planned, consider Brilinta with low dose aspirin and discontinue Plavix. - Diabetes mellitus - Continue Levemir 40 units QHS as well as sliding scale insulin. - Will add premeal coverage with Aspart 3 units TIDAC if blood glucose > 110. - Hypothyroidism - Continue Levothyroxine 50mcg Qday. - Glaucoma - continue Timolol. Full code. Heparin Drip. Cole Espinoza DO Aug 03, 2016 4:26 pm
--- NOTE | 2016-08-03 16:35 | EKG ---
Date Performed: 08/02/2016 Time Performed: 17:53:07 PTAGE: 70 years EKG: Sinus rhythm with P wave synchronous Ventricular pacing ABNORMAL RHYTHM ECG NO PREVIOUS TRACING DOCTOR: Vaughn Chinchilla Interpretating Date/Time 08/03/2016 16:34:51
[2016-08-03] MEDS: INSULIN ASPART 1,000 UNITS/10 ML VIAL SQ SCH (16:43)
[2016-08-03 20:00] VITALS: BP 133/84; PULSE 102; PULSE 103; RESP 18; TEMP 98.2; O2SAT 95
--- NOTE | 2016-08-03 20:00 | EC ---
Study Study Date:08/03/2016 STUDY CONCLUSIONS SUMMARY - Left ventricle: The cavity size was dilated. Wall thickness was normal. Systolic function was severely reduced. The estimated ejection fraction was 25%. Wall motion was normal; there were no regional wall motion abnormalities. - Mitral valve: Calcified annulus. Mild regurgitation. - Tricuspid valve: Moderate regurgitation. - Pulmonary arteries: Systolic pressure was moderately increased. PA peak pressure: 68mm Hg (S). If LV function is below 40, please consider prescribing an ACEI or ARB or document rationale for non-use. PROCEDURE DATA STUDY STATUS: Elective. Procedure: Transthoracic echocardiography. Image quality was good. Scanning was performed from the parasternal, apical, and subcostal acoustic windows. Study completion: The patient tolerated the procedure well. Transthoracic echocardiography. M-mode, complete 2D, complete spectral Doppler, and color Doppler. Height: Height: 73in. Weight: Weight: 219.5lb. Body mass index: BMI: 29kg/m^2. Body surface area: BSA: 2.24m^2. Patient status: Inpatient. CARDIAC ANATOMY LEFT VENTRICLE: The cavity size was dilated. Wall thickness was normal. Systolic function was severely reduced. The estimated ejection fraction was 25%. Wall motion was normal; there were no regional wall motion abnormalities. AORTIC VALVE: Trileaflet; mildly thickened leaflets. Doppler: Transvalvular velocity was within the normal range. There was no stenosis. No regurgitation. Valve area: 2.24cm^2(VTI). Indexed valve area: 1cm^2/m^2 (VTI). Valve area: 2.57cm^2 (Vmax). Indexed valve area: 1.15cm^2/m^2 (Vmax). Mean gradient: 3mm Hg (S). AORTA: Aortic root: The aortic root was mildly dilated. MITRAL VALVE: Calcified annulus. Doppler: Transvalvular velocity was within the normal range. There was no evidence for stenosis. Mild regurgitation. LEFT ATRIUM: The atrium was normal in size. RIGHT VENTRICLE: The cavity size was normal. Wall thickness was normal. PULMONIC VALVE: Doppler: Transvalvular velocity was within the normal range. There was no evidence for stenosis. No regurgitation. TRICUSPID VALVE: Structurally normal valve. Doppler: Transvalvular velocity was within the normal range. Moderate regurgitation. PULMONARY ARTERY: The main pulmonary artery was normal-sized. Systolic pressure was moderately increased. RIGHT ATRIUM: The atrium was normal in size. PERICARDIUM: There was no pericardial effusion. SYSTEMIC VEINS: Inferior vena cava: The vessel was normal in size. Patient weight: 219.5lb _Ejection fraction:_ 65-75% _Fractional shortening:_ 32% up to 5Kg 5-11.5Kg 11.6-22.9Kg 23-45Kg 45-57Kg Aortic Root 7-13 <17 13-22 17-27 17-27 LA diam 6-13 <23 24-38 33-47 37-40 RVID 10-17 7-15 7-15 7-18 8-17 LVIDd 12-22 <32 24-38 33-47 37-40 LVPW 2-4 3-6 5-7 6-8 7-8 IVS 2-4 3-6 5-7 6-8 7-8 BASIC MEASUREMENTS ADULT NORMAL Left ventricle LV internal dimension, ED, chordal *57.1 mm 43-52 level, PLAX LV internal dimension, ES, chordal *49.2 mm 23-38 level, PLAX Fractional shortening, chordal level, *14 % >29 PLAX LV posterior wall thickness, ED 7.97 mm IVS/LVPW ratio, ED 0.99 <1.3 Ventricular septum Septal thickness, ED 7.89 mm Aortic valve Leaflet separation 20 mm 15-26 Aorta Root diameter, ED 40 mm BASIC MEASUREMENTS ADULT NORMAL Left ventricle LV internal dimension, ED *64.5 mm 37-56 LV internal dimension, ES 58.8 mm Fractional shortening *9 % 29-45 LV posterior wall, ED *11.5 mm 6-11 Septal/posterior wall ratio, ED 0.95 Relative wall thickness, ED 0.36 <0.45 Volume, ED, Teichholz 212 ml Volume, ES, Teichholz 172 ml Ejection fraction, Teichholz *18.9 % 64-83 Stroke volume, Teichholz 40 ml Volume index, ED, Teichholz 95 ml/m^2 Volume index, ES, Teichholz 77 ml/m^2 Stroke index, Teichholz 17.9 ml/m^2 Wall mass 323.3 g Wall mass index 144.3 g/m^2 Mass/height 1.74 g/cm Ventricular septum Septal thickness, ED 10.9 mm Aortic valve Leaflet separation 20 mm 15-26 DOPPLER MEASUREMENTS ADULT NORMAL Main pulmonary artery Pressure, S *68 mm Hg =30 Aortic valve Peak velocity, S 101 cm/s Mean velocity, S 76.9 cm/s VTI, S 17.8 cm Mean gradient, S 3 mm Hg Valve area, VTI 2.24 cm^2 Valve area index, VTI 1 cm^2/m^2 Valve area, Vmax 2.57 cm^2 Valve area index, Vmax 1.15 cm^2/m^2 Mitral valve Deceleration time *120 ms 150-230 Tricuspid valve Regurgitant peak velocity 366 cm/s Peak RV-RA gradient, S 54 mm Hg Maximal regurgitant velocity 366 cm/s Systemic veins Estimated CVP 15 mm Hg Right ventricle RV pressure, S *69 mm Hg <30 Pulmonic valve Peak velocity, S 48.9 cm/s LEGEND: Mean values are shown as u=mean value. Asterisk (*) casey values outside specified normal range. Prepared and signed by Nahomy Love [id number]
[2016-08-03] MEDS: LATANOPROST 0.005% OPHT SOLN 2.5 ML BTL RIGHT EYE SCH (21:00)
[2016-08-03] MEDS: INSULIN DETEMIR 100 UNITS/ML VIAL SQ SCH (21:00)
[2016-08-03] MEDS: PRAVASTATIN SOD 40 MG TAB PO SCH (21:57)
[2016-08-03] MEDS: HEPARIN-D5W INJ 250 ML IV SCH (22:26)
[2016-08-04] VITALS (12 sets, daily range): BP systolic 115–187; BP diastolic 55–125; PULSE 93–108; RESP 18–20; TEMP 97.3–99.7; O2SAT 90–100
[2016-08-04] MEDS ORDERED: DEXTROSE 50% IN WATER 50 ML SYRINGE IV ONE (05:00)
[2016-08-04] MEDS ORDERED: EPINEPHrine HCL (1:10,000) 1 MG/10 ML SYRINGE IV ONE (05:00)
[2016-08-04] MEDS: NITROGLYCERIN 2% OINT 1 GM PACKET TOP SCH ×2 (05:46→12:16)
[2016-08-04] MEDS: LEVOTHYROXINE SODIUM 50 MCG TAB PO SCH (05:46)
[2016-08-04] MEDS: INSULIN ASPART SUPPLEMENTAL SCALE SQ SCH ×2 (05:46→12:07)
[2016-08-04 06:40] LABS: APTT (PATIENT) 44.1 SEC (24.3-30.1)
[2016-08-04] MEDS: TIMOLOL MALEATE 0.5% OPHT SOLN 5 ML BTL RIGHT EYE SCH ×2 (09:00→20:38)
[2016-08-04] MEDS: SODIUM CHLORIDE 0.9% FLUSH 10 ML FLUSH IV FLUSH SCH ×2 (09:00→19:50)
[2016-08-04] MEDS: BRIMONIDINE TARTRATE 0.2% OPHT SOLN 5 ML BTL RIGHT EYE SCH ×2 (09:00→20:37)
[2016-08-04] MEDS: INSULIN ASPART 1,000 UNITS/10 ML VIAL SQ SCH ×2 (09:03→12:00)
[2016-08-04] MEDS: CLOPIDOGREL 75 MG TAB PO SCH (09:03)
[2016-08-04] MEDS: ASPIRIN 325 MG TAB PO SCH (09:03)
[2016-08-04] MEDS: CARVEDILOL 6.25 MG TAB PO SCH (09:03)
[2016-08-04] MEDS: DOCUSATE SODIUM 100 MG CAP PO SCH ×2 (09:03→19:50)
[2016-08-04] MEDS: MULTIVITAMIN HEMATINIC THERAPEUTIC TAB PO SCH (09:03)
[2016-08-04] MEDS: FUROSEMIDE 40 MG/4 ML VIAL IV PUSH SCH (09:03)
--- NOTE | 2016-08-04 09:38 | HHI.PR ---
Objective Vitals Vital Signs Date Time Temp Pulse Resp B/P Pulse Ox O2 Delivery O2 Flow Rate FiO2 08/04/16 06:00 100 20 133/55 99 08/04/16 00:00 97.8 105 20 130/62 96 08/03/16 21:02 Nasal Cannula 3.00 08/03/16 20:00 102 08/03/16 20:00 98.2 103 18 133/84 95 08/03/16 20:00 Nasal Cannula 4.00 08/03/16 16:00 98.9 99 20 121/69 95 08/03/16 13:44 94 Nasal Cannula 3.00 08/03/16 12:00 98.2 110 24 135/60 95 I/O 08/03/16 08/03/16 08/03/16 08/04/16 08/04/16 08/04/16 07:00 15:00 23:00 07:00 15:00 23:00 Intake Total 0 ml 960 ml 221 ml Output Total 600 ml 850 ml 200 ml 450 ml Balance -600 ml 110 ml -200 ml -229 ml Intake Oral 0 ml 960 ml IV Total 221 ml Output Urine Total 600 ml 850 ml 200 ml 450 ml # Bowel Movements 0 0 Result Diagram: 08/03/1651208/03/16512 Objective Remarks GENERAL: Alert, NAD. SKIN: Warm and dry. HEAD: Normocephalic. EYES: No scleral icterus. No injection or drainage. NECK: Supple, trachea midline. No JVD or lymphadenopathy. CARDIOVASCULAR: Regular rate and rhythm without murmurs, gallops, or rubs. RESPIRATORY: Breath sounds equal bilaterally. No accessory muscle use. GASTROINTESTINAL: Abdomen soft, non-tender, nondistended. MUSCULOSKELETAL: No cyanosis, or edema. BACK: Nontender without obvious deformity. No CVA tenderness. Procedures None. A/P Problem List: (1) Dyspnea on exertion ICD Code: R06.09 Status: Acute (2) NSTEMI (non-ST elevated myocardial infarction) ICD Code: I21.4 Status: Acute (3) CAD (coronary artery disease) ICD Code: I25.10 Status: Acute (4) Ischemic cardiomyopathy ICD Code: I25.5 Status: Acute (5) DM (diabetes mellitus) ICD Code: E11.9 Status: Acute (6) PVD (peripheral vascular disease) ICD Code: I73.9 Status: Acute Assessment and Plan Mr. Damico is a 70 year old male with a history of ischemic cardiomyopathy, CAD, PVD, DM, hypothyroidism who presented to the ED due to shortness of breath and weakness. Initial work up indicated troponin 3.18. Cardiology was contacted by ED and patient was started on heparin drip. - Acute NSTEMI - CAD s/p CABG - Ischemic cardiomyopathy - s/p AICD placement. - Acute on chronic systolic congestive heart failure - Troponins 3.18, 2.74, 2.01. - Continue heparin drip, Aspirin, Plavix, Carvedilol. NTG PRN. - Lasix 40mg IV BID. - Continue Statin - will discuss with patient if he has any trouble with Lipitor. Lipitor 80mg QHS would be ideal. - Cardiology consult pending with regards to NSTEMI. - If no intervention is planned, consider Brilinta with low dose aspirin and discontinue Plavix. - Diabetes mellitus - Continue Levemir 40 units QHS as well as sliding scale insulin. - Will add premeal coverage with Aspart 3 units TIDAC if blood glucose > 110. - Hypothyroidism - Continue Levothyroxine 50mcg Qday. - Glaucoma - continue Timolol. Full code. Heparin Drip. Cole Espinoza DO Aug 04, 2016 09:38
[2016-08-04] MEDS ORDERED: PROPOFOL 1000 MG/100 ML INJ 100 ML ONE (10:58)
[2016-08-04] MEDS ORDERED: MAGNESIUM OXIDE 400 MG TAB PO PRN (11:00)
[2016-08-04] MEDS ORDERED: MAGNESIUM SULFATE INJ 2 GM in SODIUM CHLORIDE 0.9% INJ 96 ML IV PRN (11:00)
[2016-08-04] MEDS ORDERED: SODIUM PHOSPHATE INJ 30 MMOL in SODIUM CHLOR 0.9% 250 ML INJ 240 ML IV PRN (11:00)
[2016-08-04] MEDS ORDERED: POTASSIUM CHLOR 20 MEQ PREMIX 100 ML IV PRN ×2 (11:00)
[2016-08-04] MEDS ORDERED: RESP: ALBUTEROL 2.5 MG/IPRATROPIUM 0.5 MG NEB (PRN) INH (11:00)
[2016-08-04] MEDS ORDERED: POTASSIUM CHLOR 40 MEQ PREMIX 100 ML IV PRN ×2 (11:00)
[2016-08-04] MEDS ORDERED: POTASSIUM PHOSPHATE INJ 30 MMOL in SODIUM CHLOR 0.9% 250 ML INJ 250 ML IV PRN (11:00)
[2016-08-04] MEDS ORDERED: MAGNESIUM SULFATE INJ 4 GM in SODIUM CHLORIDE 0.9% INJ 92 ML IV PRN (11:00)
[2016-08-04] MEDS ORDERED: POTASSIUM PHOSPHATE MONOBASIC 500 MG TAB PO PRN (11:00)
[2016-08-04] MEDS ORDERED: fentaNYL DRIP 250 ML IV SCH (11:00)
[2016-08-04] MEDS ORDERED: POTASSIUM PHOSPHATE MONOBASIC 500 MG TAB PO/TUBE PRN (11:00)
--- NOTE | 2016-08-04 11:12 | PD.PROCEDR ---
Procedure Note Procedure DATE: 08/04/16 ARTERIAL LINE PLACEMENT: Right femoral artery. Ultrasound-guided INDICATION: Central venous access DESCRIPTION OF THE PROCEDURE The patient was placed in supine position. The skin was cleansed with Chloraprep. Additional barrier precautions included large sterile drape, sterile gloves, sterile gown, face mask, and hat. 1 % lidocaine was used for local anesthesia. Under direct ultrasound guidance and on initial attempt, the right femoral artery was accessed with an introducer needle. The guide wire was advanced. Using Seldinger technique a 20 Albanian 12 cm antimicrobial coated triple-lumen catheter was advanced to a depth of 12 centimeters. The guide wire was removed. Single port was flushed after return of bright red pulsatile blood with saline. The arterial line was secured with 2.0 silk. A sterile dressing with antibiotic disc was applied. ESTIMATED BLOOD LOSS: Minimal COMPLICATIONS: No apparent complications. Jacques Belle MD Aug 04, 2016 11:12
--- NOTE | 2016-08-04 11:22 | PD.CONS ---
[facility] Service Critical Care Medicine Consult Requested By Dr. Espinoza Reason for Consult PEA arrest. Primary Care Physician No Primary Care Physician History of Present Illness This is a 70-year-old male who I was called to evaluate as a CODE BLUE for PEA arrest. Per report from Dr. Espinoza, this patient has ischemic cardiac myopathy any of 25%. He was admitted for CHF exacerbation and NSTEMI with troponins peaking at 3 in the downtrending. He was on a heparin drip. He was apparently per nursing alert and oriented in a chair this morning around 9 AM last seen when they reevaluated the patient he was unresponsive and blue. He was immediately moved back to the bed and ACLS was instituted. When I arrived, CPR was in progress. I gave 1 mg of epinephrine and 1 syringe of D50 because a blood glucose machine was not readily available. After approximately 2 minutes of CPR a pulse check revealed the patient had a pulse. Noninvasive blood pressure cuff revealed a systolic in the 180s. Despite this, the patient remained cyanotic appearing and with agonal respirations at best. I proceeded with emergent intubation, please see separate procedure note for details. Stat EKG demonstrates biventricular pacing rhythm. He is transferred to the intensive care unit for workup and management of his PEA arrest and acute hypoxic respiratory failure. Review of Systems ROS Limitations: Clinical Condition, Intubated, Altered Mental Status, Unresponsive Past Family Social History Allergies: Coded Allergies: Iodinated Contrast Media (Verified Allergy, Unknown, 08/02/16) Sulfa (Verified Allergy, Unknown, 08/02/16) Past Medical History Full past medical history unobtainable secondary to the patient's clinical condition. Brief history based on brief chart review: ischemic cardiomyopathy, EF 25% CHF exacerbation active NSTEMI Past Surgical History Full past surgical history unobtainable secondary to the patient's clinical condition. briefly: AICD placement. Reported Medications unknown and unobtainable secondary to the clinical condition of the patient. Active Ordered Medications See MAR Family History unknown and unobtainable secondary to the clinical condition of the patient. Social History unknown and unobtainable secondary to the clinical condition of the patient. Physical Exam Vital Signs Vital Signs Date Time Temp Pulse Resp B/P Pulse Ox O2 Delivery O2 Flow Rate FiO2 08/04/16 08:00 97.8 99 18 115/66 90 08/04/16 06:00 100 20 133/55 99 08/04/16 00:00 97.8 105 20 130/62 96 08/03/16 21:02 Nasal Cannula 3.00 08/03/16 20:00 102 08/03/16 20:00 98.2 103 18 133/84 95 08/03/16 20:00 Nasal Cannula 4.00 08/03/16 16:00 98.9 99 20 121/69 95 08/03/16 13:44 94 Nasal Cannula 3.00 08/03/16 12:00 98.2 110 24 135/60 95 Physical Exam When I arrived at the [facility], the patient was cyanotic, unresponsive. He has dentures which were actively being removed. Respiratory therapy was initiating [id number] ventilation. CPR was in progress. There is no telemetry connected, but I confirm the patient was pulseless. Please see separate CPR note for details. His pupils were equal and reactive. His chest had only minimal air entry, was otherwise clear. He had 1+ peripheral edema. Laboratory Laboratory Tests Test 08/04/16 04:57 Activated Partial 44.1 Thromboplast Time Result Diagram: 08/03/16 0513 08/03/16512 Assessment and Plan Assessment and Plan Assessment: This is a 70-year-old male with ischemic cardio myopathy, EF 25% initially admitted for CHF exacerbation and non-ST elevation myocardial infarction now sustained a PEA arrest and acute hypoxic respiratory failure. Given that his AICD did not fire, this is much more likely to be a respiratory arrest from a mucous plug or aspiration as opposed to a true fatal ventricular dysrhythmia. He has a [employer] AICD and we will have it interrogated to evaluate if he had any dysrhythmia. I will also reengage cardiology ask for their assistance. For now, he remains very critically ill immediately post cardiac arrest. Active problems: Ischemic cardiomyopathy CHF exacerbation, systolic type Non ST elevation myocardial infarction Acute hypoxic respiratory failure Possible respiratory arrest Status post PEA arrest Plan: Admit to the ICU Vent bundle, nebs, Head of bed 30 Wean FiO2 for SPO2 greater than 90% Status chest x-ray Place arterial line Have cardiology reevaluate patient Interrogate AICD Propofol, fentanyl as needed for vent synchrony and sedation Goal RASS -2 Norepinephrine as needed for map goal greater than 65. -- send STAT cbc, bmp, coags, abg. I have updated the family at bedside. This patient remains critically ill with one or more organ systems which are or may become a threat to life. I have spent in excess of 32 minutes discontinuously in the care and management of this patient. This time is exclusive of procedures, and includes, but is not limited to, evaluation of the patient, review of the medical record, discussions with family, consultants, nursing staff, or respiratory therapy, and documentation in the medical record. This time is exclusive of time spent in active cardio pulmonary resuscitation. Code Status Full Code Discussed Condition With Dr. Espinoza, bedside RN, family at bedside. Nayan Velazquez MD Aug 04, 2016 11:22
--- NOTE | 2016-08-04 11:23 | PD.PROCEDR ---
Procedure Note Procedure Procedure: Cardiopulmonary Resuscitation Description: I arrived and the presenting rhythm was PEA arrest. I personally gave 1mg epinephrine, 1 amp d50. ROSC was obtained. please see separately documented code sheet for details. I was personally present from the time I arrived at the code until ROSC was obtained. Nayan Velazquez MD Aug 04, 2016 11:23
--- NOTE | 2016-08-04 11:25 | PD.PROCEDR ---
Procedure Note Procedure Endotracheal Intubation Diagnosis: PEA arrest Indications: Cardiac arrest with active ACLS Consent: Consent is deemed emergent or medically necessary Anesthesia: none Description of the Procedure: ROSC had just been obtained s/p ACLS for PEA arrest. The patient was persistently cyanotic with agonal respirations. patient is edentulous. no medications were given. A scott #4 was used for laryngoscopy and a Grade 1 view was obtained. A 8.0 cuffed endotracheal tube was inserted atraumatically through the vocal cords. Confirmation of correct endotracheal tube placement was made by equal and bilateral breath sounds and colorimetric CO2 detection. The endotracheal tube was secured at 24 cm at the teeth. There were no immediate complications noted. The patient remained with a pulse throughout the procedure and is actively being transferred emergently to the surgical ICU for further management. A chest x-ray has been ordered. I personally performed the procedure. Nayan Velazquez MD Aug 04, 2016 11:25
[2016-08-04] MEDS ORDERED: DOBUTamine PREMIX DRIP 250 ML ONE (11:36)
[2016-08-04 11:39] LABS: HEMATOCRIT 38.4 % (39.0-51.0); MEAN CELL VOLUME 100.8 FL (80.0-100.0); MEAN CORPUSCULAR HEMOGLOBIN 33.2 PG (27.0-34.0); PLATELET COUNT 201 TH/MM3 (150-450); RED BLOOD COUNT 3.81 MIL/MM3 (4.50-5.90); RED CELL DISTRIBUTION WIDTH 15.3 % (11.6-17.2); REVIEW FLAG FINAL; WHITE BLOOD COUNT 9.7 TH/MM3 (4.0-11.0)
[2016-08-04] MEDS: HEPARIN-D5W INJ 250 ML IV SCH (12:02)
--- NOTE | 2016-08-04 12:23 | RADRPT ---
EXAM DATE/TIME: 08/04/2016 11:39 [facility] COMPARISON: CHEST SINGLE AP, August 02, 2016, 16:39. INDICATIONS : Intubation. MEDICAL HISTORY : None. SURGICAL HISTORY : None. ENCOUNTER: Initial ACUITY: 1 day PAIN SCORE: 0/10 LOCATION: Bilateral chest FINDINGS: AP portable semiupright exam of the chest demonstrates interval intubation with the endotracheal tube projecting over the level of the clavicles. There is stable mild cardiomegaly with postsurgical jane ges related to prior CABG surgery. Stable dual-lead cardiac device. The lung exam demonstrates new multifocal airspace opacities within the right hemithorax and to a les ser extent the left hemithorax. CONCLUSION: Interval intubation with worsening lung exam. Sugey Lau MD on August 04, 2016 at 12:20 Board Certified Radiologist. This report was verified electronically.
[2016-08-04 12:40] LABS: BICARBONATE 29.2 MEQ/L (21.0-32.0); POTASSIUM 4.8 MEQ/L (3.5-5.1)
[2016-08-04] MEDS: RESP: ALBUTEROL 2.5 MG/IPRATROPIUM 0.5 MG NEB (SCH) INH ×2 (14:33→20:22)
--- NOTE | 2016-08-04 15:16 | PD.CARD.PN ---
Subjective Subjective Remarks PEA arrest this AM, intubated, on the vent, ICD eval w no signif arrhythmias, off Levaphed, on low dose dobut Objective Medications Current Medications Medications (Trade) Dose Ordered Sig/Jacek Route Start Time Stop Time Status Last Admin (Heparin-D5W Inj) 250 ml @ 0 mls/hr TITRATE IV 08/02/16 18:15 08/04/16 12:02 (Aspirin) 325 mg DAILY PO 08/04/16 09:00 08/04/16 09:03 (Nitrostat Sl) 0.4 mg Q5M PRN SL 08/02/16 19:15 (NS Flush) 2 ml UNSCH PRN IV FLUSH 08/02/16 19:15 (NS Flush) 2 ml BID IV FLUSH 08/02/16 21:00 08/04/16 09:00 (Tylenol) 650 mg Q4H PRN PO 08/02/16 19:15 (Colace) 100 mg Q12H PO 08/02/16 20:00 08/04/16 09:03 (Senokot) 17.2 mg Q12H PRN PO 08/02/16 19:15 (Tylenol) 650 mg Q6H PRN PO 08/02/16 19:15 ([place] 5-325 Mg) 1 tab Q4H PRN PO 08/02/16 19:15 ([place] 7.5-325 Mg) 1 tab Q4H PRN PO 08/02/16 19:15 (Morphine Inj) 1 mg Q3H PRN IV 08/02/16 19:15 (Narcan Inj) 0.4 mg UNSCH PRN IV 08/02/16 19:15 (Nitroglycerin 2% Oint) 0.5 inch Q8HR TOP 08/02/16 23:30 08/04/16 05:46 (Coreg) 6.25 mg BID PO 08/02/16 21:00 08/04/16 09:03 (Plavix) 75 mg DAILY PO 08/03/16 09:00 08/04/16 09:03 (Synthroid) 50 mcg DAILY@06 PO 08/03/16 06:00 08/04/16 05:46 (Theragran Hematinic) 1 tab DAILY PO 08/03/16 09:00 08/04/16 09:03 (Refresh Classic 1.4-0.6% Pf Opth Soln) 1 drop TID PRN EACH EYE 08/02/16 19:15 Patient Own Medication PT OWN MED: AZOPT (BRINZOLAMI... BID RIGHT EYE 08/02/16 21:00 Hold (Levemir Inj) 40 units HS SQ 08/02/16 21:00 08/03/16 21:00 (Pravachol) 40 mg HS PO 08/02/16 21:00 08/03/16 21:57 (Xalatan 0.005% Opth Soln) 1 drop HS RIGHT EYE 08/02/16 21:00 08/02/16 21:27 (D50w (Vial) Inj) 25 ml UNSCH PRN IV PUSH 08/02/16 19:15 (Glucagon Inj) 1 mg UNSCH PRN OTHER 08/02/16 19:15 (Lasix Inj) 40 mg BID@09,18 IV PUSH 08/03/16 09:00 08/04/16 09:03 (Alphagan 0.2% Opth Soln) 1 drop Q12HR RIGHT EYE 08/02/16 21:00 08/03/16 09:00 (Timoptic 0.5% Opth Soln) 1 drop Q12HR RIGHT EYE 08/02/16 21:00 08/03/16 09:00 (Zofran Inj) 4 mg Q8HR PRN IV PUSH 08/03/16 07:45 08/03/16 10:22 Insulin Aspart 3 units 3 units TIDAC SQ 08/03/16 17:00 08/04/16 09:03 (fentaNYL DRIP) 250 ml @ 0 mls/hr TITRATE IV 08/04/16 11:00 Magnesium Oxide 800 mg 800 mg UNSCH PRN PO 08/04/16 11:00 Magnesium Sulfate 4 gm/Sodium Chloride 100 ml @ 50 mls/hr UNSCH PRN IV 08/04/16 11:00 Magnesium Sulfate 2 gm/Sodium Chloride 100 ml @ 50 mls/hr UNSCH PRN IV 08/04/16 11:00 Potassium Chloride 100 ml @ 50 mls/hr Q2H PRN IV 08/04/16 11:00 Potassium Chloride 100 ml @ 50 mls/hr Q2H PRN IV 08/04/16 11:00 Potassium Chloride 100 ml @ 50 mls/hr Q2H PRN IV 08/04/16 11:00 (KCl 40 Meq Premix Inj) 100 ml @ 25 mls/hr UNSCH PRN IV 08/04/16 11:00 (K-Phos) 2,000 mg Q4H PRN PO 08/04/16 11:00 Potassium Phosphate 2000 mg 2,000 mg UNSCH PRN PO/TUBE 08/04/16 11:00 Potassium Phosphate 30 mmol/ Sodium Chloride 260 ml @ 42 mls/hr UNSCH PRN IV 08/04/16 11:00 (Sodium Phosphate Inj/NS 250 ml Inj) 250 ml @ 42 mls/hr UNSCH PRN IV 08/04/16 11:00 (Peridex 0.12% Liq) 15 ml BID@08,20 MT 08/04/16 20:00 Vital Signs / I&O Vital Signs Date Time Temp Pulse Resp B/P Pulse Ox O2 Delivery O2 Flow Rate FiO2 08/04/16 14:30 40 08/04/16 12:53 100 50 08/04/16 12:00 60 08/04/16 12:00 97.3 95 20 157/77 99 08/04/16 11:03 100 40 08/04/16 11:00 60 08/04/16 10:35 108 187/125 08/04/16 09:00 Nasal Cannula 4.00 08/04/16 08:00 97.8 99 18 115/66 90 08/04/16 06:00 100 20 133/55 99 08/04/16 00:00 97.8 105 20 130/62 96 08/03/16 21:02 Nasal Cannula 3.00 08/03/16 20:00 102 08/03/16 20:00 98.2 103 18 133/84 95 08/03/16 20:00 Nasal Cannula 4.00 08/03/16 16:00 98.9 99 20 121/69 95 I/O 08/03/16 08/03/16 08/03/16 08/04/16 08/04/16 08/04/16 06:59 14:59 22:59 06:59 14:59 22:59 Intake Total 0 ml 960 ml 221 ml 120 ml Output Total 600 ml 850 ml 200 ml 450 ml 475 ml Balance -600 ml 110 ml -200 ml -229 ml -355 ml Intake Oral 0 ml 960 ml IV Total 221 ml 120 ml Output Urine Total 600 ml 850 ml 200 ml 450 ml 475 ml # Bowel Movements 0 0 1 Physical Exam GENERAL: Intubated, sedated SKIN: Warm and dry. HEAD: Normocephalic. EYES: No scleral icterus. No injection or drainage. NECK: Supple, trachea midline. No JVD or lymphadenopathy. CARDIOVASCULAR: Regular rate and rhythm without murmurs, gallops, or rubs. RESPIRATORY: Breath sounds equal bilaterally GASTROINTESTINAL: Abdomen soft, non-tender, nondistended. MUSCULOSKELETAL: No cyanosis, or edema. Laboratory Laboratory Tests Test 08/04/16 08/04/16 04:57 11:10 Activated Partial 44.1 SEC Thromboplast Time White Blood Count 9.7 TH/MM3 Red Blood Count 3.81 MIL/MM3 Hemoglobin 12.7 GM/DL Hematocrit 38.4 % Mean Corpuscular Volume 100.8 FL Mean Corpuscular Hemoglobin 33.2 PG Mean Corpuscular Hemoglobin 33.0 % Concent Red Cell Distribution Width 15.3 % Platelet Count 201 TH/MM3 Mean Platelet Volume 9.3 FL Sodium Level 132 MEQ/L Potassium Level 4.8 MEQ/L Chloride Level 94 MEQ/L Carbon Dioxide Level 29.2 MEQ/L Anion Gap 9 MEQ/L Blood Urea Nitrogen 55 MG/DL Creatinine 2.39 MG/DL Estimat Glomerular Filtration 27 ML/MIN Rate Random Glucose 397 MG/DL Calcium Level 9.0 MG/DL Imaging Last Impressions Chest X-Ray 08/04/16 1142 Signed Impressions: Service Date/Time: Thursday, August 04, 2016 11:39 - CONCLUSION: Interval intubation with worsening lung exam. Sugey Lau MD Assessment and Plan Problem List: (1) PEA (Pulseless electrical activity) (2) Respiratory failure (3) ICD (implantable cardioverter-defibrillator) in place (4) NSTEMI (non-ST elevated myocardial infarction) (5) Ischemic cardiomyopathy (6) CAD (coronary artery disease) (7) PVD (peripheral vascular disease) (8) DM (diabetes mellitus) Assessment and Plan PEA arrest this AM. ICD eval w no arrhythmias or therapies. Continue ICU care. Off pressors x low dose dobutamine. Wean vent as tolerated. Echo w severe LV dysfunction, mod TR, PAP 68 mmHg. Nahomy Love MD Aug 04, 2016 15:16
[2016-08-04] MEDS ORDERED: DEXTROSE 50% IN WATER 50 ML VIAL(D50) IV PUSH PRN (16:00)
[2016-08-04] MEDS ORDERED: FUROSEMIDE 100 MG/10 ML VIAL IV PUSH ONE (17:00)
[2016-08-04] MEDS: INSULIN NovoLIN REGULAR SUPPLEMENTAL SCALE SQ SCH ×2 (17:04→23:48)
[2016-08-04] MEDS: DOBUTamine PREMIX DRIP 250 ML IV SCH (17:10)
[2016-08-04] MEDS ORDERED: NOREPINEPHRINE-DEXTROSE DRIP 250 ML IV SCH (17:15)
[2016-08-04] MEDS ORDERED: PROPOFOL 1000 MG/100 ML INJ 100 ML IV SCH (17:15)
[2016-08-04] MEDS: PRAVASTATIN SOD 40 MG TAB PO SCH (19:50)
[2016-08-04] MEDS: CHLORHEXIDINE 0.12% (ORAL KIT) 15 ML CUP MT SCH (19:50)
[2016-08-04] MEDS: INSULIN DETEMIR 100 UNITS/ML VIAL SQ SCH (19:51)
[2016-08-04] MEDS ORDERED: ARTIFICIAL TEARS OPTH SOLN 15 ML BTL EACH EYE PRN (19:59)
[2016-08-04] MEDS: LATANOPROST 0.005% OPHT SOLN 2.5 ML BTL RIGHT EYE SCH (20:38)
[2016-08-05] VITALS (15 sets, daily range): BP systolic 108–131; BP diastolic 54–71; PULSE 96–108; RESP 20–29; TEMP 98.6–100.2; O2SAT 93–100
[2016-08-05] MEDS: DOBUTamine PREMIX DRIP 250 ML IV SCH (00:39)
[2016-08-05] MEDS: RESP: ALBUTEROL 2.5 MG/IPRATROPIUM 0.5 MG NEB (SCH) INH ×4 (03:04→20:40)
[2016-08-05 03:49] LABS: APTT (PATIENT) 36.3 SEC (24.3-30.1)
[2016-08-05 03:50] LABS: HEMATOCRIT 36.3 % (39.0-51.0); MEAN CELL VOLUME 96.1 FL (80.0-100.0); MEAN CORPUSCULAR HEMOGLOBIN 32.9 PG (27.0-34.0); MEAN CORPUSCULAR HGB CONC 34.2 % (32.0-36.0); PLATELET COUNT 238 TH/MM3 (150-450); RED BLOOD COUNT 3.77 MIL/MM3 (4.50-5.90); RED CELL DISTRIBUTION WIDTH 14.5 % (11.6-17.2); REVIEW FLAG FINAL; WHITE BLOOD COUNT 12.4 TH/MM3 (4.0-11.0)
[2016-08-05] MEDS: HEPARIN-D5W INJ 250 ML IV SCH (03:57)
[2016-08-05 04:00] LABS: BICARBONATE 32.1 MEQ/L (21.0-32.0); POTASSIUM 3.4 MEQ/L (3.5-5.1)
[2016-08-05] MEDS: INSULIN NovoLIN REGULAR SUPPLEMENTAL SCALE SQ SCH ×3 (05:01→18:00)
[2016-08-05] MEDS: LEVOTHYROXINE SODIUM 50 MCG TAB PO SCH (05:16)
--- NOTE | 2016-08-05 05:54 | RADRPT ---
EXAM DATE/TIME: 08/05/2016 04:19 [facility] COMPARISON: CHEST SINGLE AP, August 04, 2016, 11:39. INDICATIONS : Shortness of breath, possible pulmonary disease. MEDICAL HISTORY : None. SURGICAL HISTORY : Pacemaker. ENCOUNTER: Subsequent ACUITY: 2 days PAIN SCORE: Non-responsive. LOCATION: Bilateral chest FINDINGS: A single view of the chest demonstrates cardiomegaly with interstitial edema. Endotracheal tube, naso gastric tube and left-sided defibrillator are unchanged in position. Previous median sternotomy and C ABG. Osseous structures are intact. CONCLUSION: Cardiomegaly with interstitial edema. Osbaldo Abebe MD on August 05, 2016 at 5:51 Board Certified Radiologist. This report was verified electronically.
--- NOTE | 2016-08-05 06:14 | HHI.CCPN ---
Subjective Remarks/Hospital Course Hospital Course: This is a 70-year-old male who I was called to evaluate as a CODE BLUE for PEA arrest. Per report from Dr. Espinoza, this patient has ischemic cardiac myopathy any of 25%. He was admitted for CHF exacerbation and NSTEMI with troponins peaking at 3 in the downtrending. He was on a heparin drip. He was apparently per nursing alert and oriented in a chair this morning around 9 AM last seen when they reevaluated the patient he was unresponsive and blue. He was immediately moved back to the bed and ACLS was instituted. When I arrived, CPR was in progress. I gave 1 mg of epinephrine and 1 syringe of D50 because a blood glucose machine was not readily available. After approximately 2 minutes of CPR a pulse check revealed the patient had a pulse. Noninvasive blood pressure cuff revealed a systolic in the 180s. Despite this, the patient remained cyanotic appearing and with agonal respirations at best. I proceeded with emergent intubation, please see separate procedure note for details. Stat EKG demonstrates biventricular pacing rhythm. He is transferred to the intensive care unit for workup and management of his PEA arrest and acute hypoxic respiratory failure. Subjective: 08/05: hemodynamically much more stable this morning. remains on dobutamine at 2.5 mcg/kg/min. diuresed 2L overnight. awake, alert, off sedation. follows commands. Objective Vital Signs Date Time Temp Pulse Resp B/P Pulse Ox O2 Delivery O2 Flow Rate FiO2 08/05/16 04:00 40 08/05/16 04:00 99.7 99 20 125/58 100 08/04/16 19:00 Mechanical Ventilator 08/04/16 09:00 4.00 Intake and Output 08/04/16 08/04/16 08/04/16 07:59 15:59 23:59 Intake Total 221 ml 120 ml 220 ml Output Total 450 ml 475 ml 1820 ml Balance -229 ml -355 ml -1600 ml Result Diagram: 08/05/1631408/05/16314 Imaging cxr 08/05: slightly improved aeration. pulm edema persists. lines in good position. Objective Remarks gen: elderly male, lying in bed, slightly somnolent, but arousable. heent: PERRL. mmm. neck: moderate amount of JVD. trachea midline. 8.0 endotracheal tube. chest: bilateral coarse rales, but improved from yesterday cv: tachycardic rate, regular rhythm, bi-V paced by tele, no appreciable murmurs abd: soft, nontender, nondistended. no guarding. extr: 1+ edema. warm, well perfused neuro: RASS 0/-1. FC x 4. CAM -. Procedures None. A/P Assessment and Plan Assessment: This is a 70-year-old male with ischemic cardiomyopathy, EF 25% initially admitted for CHF exacerbation and non-ST elevation myocardial infarction now s/p PEA arrest and acute hypoxic respiratory failure, likely from respiratory arrest. These are improving. we will pursue SBT and trial of extubation this morning if he passes his SBT. We will plan to wean off dobutamine. continue forced diuresis. I anticipate if he continues to clinically improve, he could get back on pathway and return to the floor tomorrow. Plan: 1. s/p Respiratory Arrest with Acute hypoxic respiratory failure -- SBT, if passes, will wean to extubate. -- wean fio2 for goal spo2 > 90% 2. Pulmonary Edema/Acute intravascular volume overload/Acute Systolic CHF Exacerbation -- lasix 80mg iv x 1 this morning -- goal net negative 1-2L/24h 3. Ischemic Cardiomyopathy, EF 20% -- diuresis as above -- leave dobutamine in the connor-extubation period. after extubated, wean dobutamine to off over the next few hours, plan to be off by tomorrow -- [employer] AICD, interrogated post-PEA arrest 08/04 4. Non-ST Elevation Myocardial Infarction -- continue heparin drip for now. will discuss with cardiology, since his trops are downtrending and it has been > 48h, would prefer to discontinue this if possible. -- appreciate cardiology input: Dr. Love. -- ASA, Plavix, statin 5. Diabetes -- SSI, q6h, med scale. -- Levemir -- holding scheduled mealtime insulin. DVT prophy with SCDs and heparin drip GI prophy with iv protonix Dispo: remain in the ICU. Nayan Velazquez MD Aug 05, 2016 06:14
[2016-08-05] MEDS ORDERED: POTASSIUM CHLOR 20 MEQ PREMIX 100 ML IV ONE (06:15)
[2016-08-05] MEDS: POTASSIUM CHLOR 20 MEQ PREMIX 100 ML IV SCH ×2 (06:15→09:36)
[2016-08-05] MEDS ORDERED: FUROSEMIDE 100 MG/10 ML VIAL IV PUSH ONE ×2 (06:15→15:00)
[2016-08-05] MEDS: MAGNESIUM SULFATE 1 GM PREMIX 100 ML IV SCH ×2 (06:41→09:36)
[2016-08-05] MEDS: CHLORHEXIDINE 0.12% (ORAL KIT) 15 ML CUP MT SCH ×2 (08:00→20:00)
--- NOTE | 2016-08-05 08:39 | MB ---
cc: NAHOMY LOVE DATE OF CONSULTATION 08/03/2016 REASON FOR CONSULTATION Mr. Damico is a 70-year-old white male with a history of congestive heart failure, cardiomyopathy, defibrillator placement, coronary artery disease, remote coronary artery bypass, peripheral arterial disease, diabetes mellitus and chronic kidney disease. He presented with shortness of breath and generalized weakness for the last several days. He has not had any peripheral edema or chest pain. He used his sister's oxygen. He has had cough which was nonproductive. He is now feeling better but he is still on oxygen. PAST MEDICAL HISTORY Positive for: 1. Congestive heart failure. 2. Cardiomyopathy. 3. Defibrillator placement. 4. Coronary artery disease and remote coronary bypass. 5. Peripheral arterial disease. 6. Diabetes mellitus. 7. Chronic kidney disease. 8. Hypertension. 9. Dyslipidemia. 10. Hypothyroidism. 11. Glaucoma. MEDICATIONS Include: 1. Eye drops. 2. Enteric coated aspirin. 3. Combigan ophthalmic drops. 4. Plavix 75 milligrams daily. 5. Lasix 40 milligrams daily. 6. Isosorbide mononitrate ER 30 milligrams daily. 7. Levemir. 8. Levothyroxine. 9. Centrum silver. 10. Nitroglycerine as needed. 11. Zocor 20 milligrams daily. 12. Carvedilol 6.25 milligrams twice a day. 13. Travatan ophthalmic eye drops. ALLERGIES CONTRAST AND SULFA. SOCIAL HISTORY The patient does not smoke. He does not drink alcohol. FAMILY HISTORY Negative for heart disease. REVIEW OF SYSTEMS Otherwise negative. PHYSICAL EXAMINATION VITAL SIGNS: Blood pressure 121/69, pulse 99 and regular. HEENT: Negative. 2+ carotid upstroke. No bruits. LUNGS: Clear. HEART: Regular with no murmur, gallop or rub. ABDOMEN: Soft. No bruits. EXTREMITIES: Without edema. 1-2+ distal pulses. NEUROLOGICAL: Grossly nonfocal. EKG was reviewed and showed sinus rhythm and ventricular pacing. LABORATORY DATA Labs, hemoglobin 12.2. Potassium 4.1. Creatinine 1.55. CK 50 and 45. Troponin 2.74 and 2.01. BNP 1063 and 982. DIAGNOSES 1. Dyspnea. 2. Acute exacerbation of chronic systolic congestive heart failure. 3. Possible non ST-elevation myocardial infarction. 4. Coronary artery disease, h/o coronary artery bypass. 5. Ischemic cardiomyopathy. 6. Diabetes mellitus. 7. Peripheral vascular disease. DISPOSITION Mr. Damico will be treated for congestive heart failure. We will continue IV diuresis, closely monitoring his renal function. He will be treated for a possible non-ST elevation myocardial infarction. He will be weaned off oxygen as tolerated. If he remains stable, we will consider adenosine myocardial perfusion study to evaluate his ischemic burden. We will also obtain an echocardiogram to evaluate his left ventricular function. At this time, he is feeling better and we can increase his activities. I will follow him for cardiology during his hospitalization. Nahomy Love MD [facility]row/KK /5:12 PM /8:38 AM ALL
[2016-08-05] MEDS: TIMOLOL MALEATE 0.5% OPHT SOLN 5 ML BTL RIGHT EYE SCH ×2 (09:00→20:19)
[2016-08-05] MEDS: SODIUM CHLORIDE 0.9% FLUSH 10 ML FLUSH IV FLUSH SCH ×2 (09:00→20:25)
[2016-08-05] MEDS: MULTIVITAMIN HEMATINIC THERAPEUTIC TAB PO SCH (09:00)
[2016-08-05] MEDS: BRIMONIDINE TARTRATE 0.2% OPHT SOLN 5 ML BTL RIGHT EYE SCH ×2 (09:00→20:20)
[2016-08-05] MEDS: DOCUSATE SODIUM 100 MG CAP PO SCH ×2 (09:36→20:13)
[2016-08-05] MEDS: CLOPIDOGREL 75 MG TAB PO SCH (09:37)
[2016-08-05] MEDS: ASPIRIN 325 MG TAB PO SCH (09:37)
[2016-08-05 11:33] LABS: APTT (PATIENT) 39.5 SEC (24.3-30.1)
[2016-08-05 16:24] LABS: BICARBONATE 33.5 MEQ/L (21.0-32.0); MAGNESIUM 2.6 MG/DL (1.5-2.5)
--- NOTE | 2016-08-05 17:09 | EKG ---
Date Performed: 08/04/2016 Time Performed: 10:39:36 PTAGE: 70 years EKG: Ventricular pacing, Probable tracking the atrium. When compared to previous tracing, rate h as increased. Clinical corrolation is suggested. Abnormal ECG PREVIOUS TRACING : 08/02/2016 17.53.07 DOCTOR: Pedro Palacios Interpretating Date/Time 08/05/2016 17:09:18
[2016-08-05 18:00] LABS: APTT (PATIENT) 43.4 SEC (24.3-30.1)
[2016-08-05] MEDS: PRAVASTATIN SOD 40 MG TAB PO SCH (20:13)
[2016-08-05] MEDS: LATANOPROST 0.005% OPHT SOLN 2.5 ML BTL RIGHT EYE SCH (20:16)
[2016-08-05] MEDS: INSULIN DETEMIR 100 UNITS/ML VIAL SQ SCH (20:20)
--- NOTE | 2016-08-05 21:01 | PD.CARD.PN ---
Subjective Subjective Remarks Extubated, denies angina or excessive dyspnea. Objective Medications Current Medications Medications (Trade) Dose Ordered Sig/Jacek Route Start Time Stop Time Status Last Admin (Aspirin) 325 mg DAILY PO 08/04/16 09:00 08/05/16 09:37 (Nitrostat Sl) 0.4 mg Q5M PRN SL 08/02/16 19:15 (NS Flush) 2 ml UNSCH PRN IV FLUSH 08/02/16 19:15 (NS Flush) 2 ml BID IV FLUSH 08/02/16 21:00 08/05/16 20:25 (Tylenol) 650 mg Q4H PRN PO 08/02/16 19:15 (Colace) 100 mg Q12H PO 08/02/16 20:00 08/05/16 20:13 (Senokot) 17.2 mg Q12H PRN PO 08/02/16 19:15 (Tylenol) 650 mg Q6H PRN PO 08/02/16 19:15 ([place] 5-325 Mg) 1 tab Q4H PRN PO 08/02/16 19:15 08/05/16 20:12 ([place] 7.5-325 Mg) 1 tab Q4H PRN PO 08/02/16 19:15 (Morphine Inj) 1 mg Q3H PRN IV 08/02/16 19:15 (Narcan Inj) 0.4 mg UNSCH PRN IV 08/02/16 19:15 (Coreg) 6.25 mg BID PO 08/02/16 21:00 Hold 08/04/16 09:03 (Plavix) 75 mg DAILY PO 08/03/16 09:00 08/05/16 09:37 (Synthroid) 50 mcg DAILY@06 PO 08/03/16 06:00 08/05/16 05:16 (Theragran Hematinic) 1 tab DAILY PO 08/03/16 09:00 08/04/16 09:03 Patient Own Medication PT OWN MED: AZOPT (BRINZOLAMI... BID RIGHT EYE 08/02/16 21:00 Hold (Levemir Inj) 40 units HS SQ 08/02/16 21:00 08/05/16 20:20 (Pravachol) 40 mg HS PO 08/02/16 21:00 08/05/16 20:13 (Xalatan 0.005% Opth Soln) 1 drop HS RIGHT EYE 08/02/16 21:00 08/05/16 20:16 (Lasix Inj) 40 mg BID@09,18 IV PUSH 08/03/16 09:00 Hold 08/04/16 09:03 (Alphagan 0.2% Opth Soln) 1 drop Q12HR RIGHT EYE 08/02/16 21:00 08/05/16 20:20 (Timoptic 0.5% Opth Soln) 1 drop Q12HR RIGHT EYE 08/02/16 21:00 08/05/16 20:19 (Zofran Inj) 4 mg Q8HR PRN IV PUSH 08/03/16 07:45 08/03/16 10:22 Magnesium Oxide 800 mg 800 mg UNSCH PRN PO 08/04/16 11:00 Magnesium Sulfate 4 gm/Sodium Chloride 100 ml @ 50 mls/hr UNSCH PRN IV 08/04/16 11:00 Magnesium Sulfate 2 gm/Sodium Chloride 100 ml @ 50 mls/hr UNSCH PRN IV 08/04/16 11:00 Potassium Chloride 100 ml @ 50 mls/hr Q2H PRN IV 08/04/16 11:00 Potassium Chloride 100 ml @ 50 mls/hr Q2H PRN IV 08/04/16 11:00 Potassium Chloride 100 ml @ 50 mls/hr Q2H PRN IV 08/04/16 11:00 (KCl 40 Meq Premix Inj) 100 ml @ 25 mls/hr UNSCH PRN IV 08/04/16 11:00 (K-Phos) 2,000 mg Q4H PRN PO 08/04/16 11:00 Potassium Phosphate 2000 mg 2,000 mg UNSCH PRN PO/TUBE 08/04/16 11:00 Potassium Phosphate 30 mmol/ Sodium Chloride 260 ml @ 42 mls/hr UNSCH PRN IV 08/04/16 11:00 (Sodium Phosphate Inj/NS 250 ml Inj) 250 ml @ 42 mls/hr UNSCH PRN IV 08/04/16 11:00 (Peridex 0.12% Liq) 15 ml BID@08,20 MT 08/04/16 20:00 08/05/16 08:00 (D50w (Vial) Inj) 25 ml UNSCH PRN IV PUSH 08/04/16 16:00 (NovoLIN R SUPPLEMENTAL SCALE) 1 Q6HR SQ 08/04/16 18:00 08/05/16 18:00 (Tears Naturale Opth Soln) 1 drop TID PRN EACH EYE 08/04/16 19:59 Vital Signs / I&O Vital Signs Date Time Temp Pulse Resp B/P Pulse Ox O2 Delivery O2 Flow Rate FiO2 08/05/16 20:46 97 Nasal Cannula 3.00 08/05/16 18:00 102 08/05/16 16:00 98.6 108 28 131/71 100 08/05/16 16:00 108 08/05/16 14:00 106 08/05/16 12:00 99.0 102 26 108/56 94 08/05/16 12:00 102 08/05/16 10:44 95 Nasal Cannula 4.00 08/05/16 10:30 95 Nasal Cannula 4 08/05/16 10:00 106 08/05/16 08:04 93 30 08/05/16 08:00 97 08/05/16 08:00 99.3 96 26 126/66 95 08/05/16 08:00 35 08/05/16 07:00 98 Mechanical Ventilator 40 08/05/16 06:00 40 08/05/16 06:00 40 08/05/16 04:00 40 08/05/16 04:00 99.7 99 20 125/58 100 08/05/16 03:06 98 40 08/05/16 00:00 40 08/05/16 00:00 100.2 97 20 115/54 99 08/04/16 22:39 99 40 I/O 08/04/16 08/04/16 08/04/16 08/05/16 08/05/16 08/05/16 07:00 15:00 23:00 07:00 15:00 23:00 Intake Total 221 ml 120 ml 220 ml 281 ml 436 ml Output Total 450 ml 475 ml 1820 ml 1200 ml 1400 ml Balance -229 ml -355 ml -1600 ml -919 ml -964 ml IV Total 221 ml 120 ml 220 ml 281 ml 436 ml Output Urine Total 450 ml 475 ml 1800 ml 1200 ml 1400 ml Gastric Drainage Total 20 ml # Bowel Movements 1 0 0 0 Physical Exam GENERAL: In NAD SKIN: Warm and dry. HEAD: Normocephalic. EYES: No scleral icterus. No injection or drainage. NECK: Supple, trachea midline. No JVD or lymphadenopathy. CARDIOVASCULAR: Regular rate and rhythm without murmurs, gallops, or rubs. RESPIRATORY: Breath sounds equal bilaterally GASTROINTESTINAL: Abdomen soft, non-tender, nondistended. MUSCULOSKELETAL: No cyanosis, or edema. Laboratory Laboratory Tests Test 08/05/16 08/05/16 08/05/16 08/05/16 03:15 11:00 15:45 17:30 White Blood Count 12.4 TH/MM3 Red Blood Count 3.77 MIL/MM3 Hemoglobin 12.4 GM/DL Hematocrit 36.3 % Mean Corpuscular Volume 96.1 FL Mean Corpuscular Hemoglobin 32.9 PG Mean Corpuscular Hemoglobin 34.2 % Concent Red Cell Distribution Width 14.5 % Platelet Count 238 TH/MM3 Mean Platelet Volume 8.9 FL Activated Partial 36.3 SEC 39.5 SEC 43.4 SEC Thromboplast Time Sodium Level 135 MEQ/L 136 MEQ/L Potassium Level 3.4 MEQ/L 4.0 MEQ/L Chloride Level 96 MEQ/L 96 MEQ/L Carbon Dioxide Level 32.1 MEQ/L 33.5 MEQ/L Anion Gap 7 MEQ/L 7 MEQ/L Blood Urea Nitrogen 46 MG/DL 43 MG/DL Creatinine 1.73 MG/DL 1.60 MG/DL Estimat Glomerular Filtration 39 ML/MIN 43 ML/MIN Rate Random Glucose 128 MG/DL 148 MG/DL Calcium Level 9.0 MG/DL 9.2 MG/DL Magnesium Level 2.6 MG/DL Imaging Last Impressions Chest X-Ray 08/05/16 0600 Signed Impressions: Service Date/Time: Friday, August 05, 2016 04:19 - CONCLUSION: Cardiomegaly with interstitial edema. Osbaldo Abebe MD Assessment and Plan Problem List: (1) PEA (Pulseless electrical activity) (2) Respiratory failure (3) ICD (implantable cardioverter-defibrillator) in place (4) NSTEMI (non-ST elevated myocardial infarction) (5) Ischemic cardiomyopathy (6) CAD (coronary artery disease) (7) PVD (peripheral vascular disease) (8) DM (diabetes mellitus) Assessment and Plan Extubated, diuresed. D/C heparin. Monitor renal fx. PEA arrest likely of respiratory origin. ICD eval w no arrhythmias or therapies. Continue ICU care. Echo w severe LV dysfunction, mod TR, PAP 68 mmHg. Increase activity. Nahomy Love MD Aug 05, 2016 21:00
[2016-08-06] VITALS (14 sets, daily range): BP systolic 111–128; BP diastolic 56–80; PULSE 100–109; RESP 18–28; TEMP 97.8–98.9; O2SAT 93–96
[2016-08-06] MEDS: RESP: ALBUTEROL 2.5 MG/IPRATROPIUM 0.5 MG NEB (SCH) INH ×4 (03:21→20:47)
[2016-08-06 04:06] LABS: HEMATOCRIT 40.3 % (39.0-51.0); MEAN CELL VOLUME 97.9 FL (80.0-100.0); MEAN CORPUSCULAR HEMOGLOBIN 31.7 PG (27.0-34.0); MEAN CORPUSCULAR HGB CONC 32.3 % (32.0-36.0); PLATELET COUNT 264 TH/MM3 (150-450); RED BLOOD COUNT 4.11 MIL/MM3 (4.50-5.90); RED CELL DISTRIBUTION WIDTH 14.9 % (11.6-17.2); REVIEW FLAG FINAL; WHITE BLOOD COUNT 11.8 TH/MM3 (4.0-11.0)
[2016-08-06 04:20] LABS: BICARBONATE 35.6 MEQ/L (21.0-32.0); POTASSIUM 3.7 MEQ/L (3.5-5.1)
[2016-08-06] MEDS: LEVOTHYROXINE SODIUM 50 MCG TAB PO SCH (06:05)
[2016-08-06] MEDS: INSULIN NovoLIN REGULAR SUPPLEMENTAL SCALE SQ SCH ×3 (07:00→20:10)
[2016-08-06] MEDS: CHLORHEXIDINE 0.12% (ORAL KIT) 15 ML CUP MT SCH ×2 (08:00→20:00)
[2016-08-06] MEDS: DOCUSATE SODIUM 100 MG CAP PO SCH ×2 (08:59→20:04)
[2016-08-06] MEDS: ASPIRIN 325 MG TAB PO SCH (09:00)
[2016-08-06] MEDS: TIMOLOL MALEATE 0.5% OPHT SOLN 5 ML BTL RIGHT EYE SCH ×2 (09:00→20:08)
[2016-08-06] MEDS: SODIUM CHLORIDE 0.9% FLUSH 10 ML FLUSH IV FLUSH SCH ×2 (09:00→20:11)
[2016-08-06] MEDS: BRIMONIDINE TARTRATE 0.2% OPHT SOLN 5 ML BTL RIGHT EYE SCH ×2 (09:00→20:05)
[2016-08-06] MEDS: CLOPIDOGREL 75 MG TAB PO SCH (09:00)
--- NOTE | 2016-08-06 11:29 | HHI.PR ---
Subjective Remarks Follow up for shortness of breath, weakness, NSTEMI, respiratory arrest leading to PEA. Patient was transferred from ICU to the medical floor under the care of hospitalist service. Patient is currently resting in bed. No acute concerns. Denies any CP, SOB, fever, chills. Objective Vitals Vital Signs Date Time Temp Pulse Resp B/P Pulse Ox O2 Delivery O2 Flow Rate FiO2 08/06/16 10:00 107 08/06/16 08:00 104 08/06/16 08:00 97.8 103 26 125/76 94 08/06/16 07:00 94 Nasal Cannula 3.00 40 08/06/16 06:00 103 08/06/16 04:00 102 08/06/16 04:00 98.8 102 28 128/80 93 08/06/16 02:00 100 08/06/16 00:00 102 08/06/16 00:00 98.9 102 26 128/74 95 08/05/16 22:00 103 08/05/16 20:46 97 Nasal Cannula 3.00 08/05/16 20:00 100 08/05/16 20:00 99.3 100 29 112/60 95 08/05/16 19:00 95 Nasal Cannula 3.00 08/05/16 18:00 102 08/05/16 16:00 98.6 108 28 131/71 100 08/05/16 16:00 108 08/05/16 14:00 106 08/05/16 12:00 99.0 102 26 108/56 94 08/05/16 12:00 102 I/O 08/05/16 08/05/16 08/05/16 08/06/16 08/06/16 08/06/16 07:00 15:00 23:00 07:00 15:00 23:00 Intake Total 281 ml 436 ml 68 ml 360 ml Output Total 1200 ml 1400 ml 1300 ml 700 ml Balance -919 ml -964 ml -1232 ml -340 ml Intake Oral 360 ml IV Total 281 ml 436 ml 68 ml 0 ml Output Urine Total 1200 ml 1400 ml 1300 ml 700 ml # Bowel Movements 0 0 0 0 Result Diagram: 08/06/1630908/06/16 031 Imaging Last Impressions Chest X-Ray 08/05/16 06 Signed Impressions: Service Date/Time: Friday, August 05, 2016 04:19 - CONCLUSION: Cardiomegaly with interstitial edema. Osbaldo Abebe MD Objective Remarks GENERAL: Alert, NAD. SKIN: Warm and dry. HEAD: Normocephalic. EYES: No scleral icterus. No injection or drainage. NECK: Supple, trachea midline. No JVD or lymphadenopathy. CARDIOVASCULAR: Regular rate and rhythm without murmurs, gallops, or rubs. RESPIRATORY: Breath sounds equal bilaterally. No accessory muscle use. GASTROINTESTINAL: Abdomen soft, non-tender, nondistended. MUSCULOSKELETAL: No cyanosis, or edema. BACK: Nontender without obvious deformity. No CVA tenderness. Procedures Echo 08/03/2016 - Left ventricle: The cavity size was dilated. Wall thickness was normal. Systolic function was severely reduced. The estimated ejection fraction was 25%. Wall motion was normal; there were no regional wall motion abnormalities. - Mitral valve: Calcified annulus. Mild regurgitation. - Tricuspid valve: Moderate regurgitation. - Pulmonary arteries: Systolic pressure was moderately increased. PA peak pressure: 68mm Hg (S). A/P Problem List: (1) NSTEMI (non-ST elevated myocardial infarction) ICD Code: I21.4 Status: Acute (2) CAD (coronary artery disease) ICD Code: I25.10 Status: Acute (3) Ischemic cardiomyopathy ICD Code: I25.5 Status: Acute (4) DM (diabetes mellitus) ICD Code: E11.9 Status: Acute (5) PVD (peripheral vascular disease) ICD Code: I73.9 Status: Acute (6) Acute respiratory failure with hypoxia ICD Code: J96.01 Status: Acute Assessment and Plan Mr. Damico is a 70 year old male with a history of ischemic cardiomyopathy, CAD, PVD, DM, hypothyroidism who presented to the ED due to shortness of breath and weakness. Initial work up indicated troponin 3.18. Cardiology was contacted by ED and patient was started on heparin drip. On 08/04/2016, patient went into respiratory arrest and PEA. Code blue was initiated and patient was intubated by ICU team. Patient was monitored in the ICU and subsequently transferred to the medical floor. - Acute respiratory failure with hypoxia - Cardiopulmonary arrest s/p ACLS protocol, ROSC - Patient was extubated on 08/05/2016. Received Lasix 80mg for pulmonary edema. - Acute NSTEMI - CAD s/p CABG - Ischemic cardiomyopathy - s/p AICD placement. - Acute on chronic systolic congestive heart failure - Troponins 3.18, 2.74, 2.01. - Continue Aspirin, Plavix. Will restart Carvedilol 6.25mg BID. Heart rate is in the low 100s. - Currently BP is on the lower side. Will start Lasix 20mg Qday. - Continue Statin - will discuss with patient if he has any trouble with Lipitor. Lipitor 80mg QHS would be ideal. - Cardiology consult pending with regards to NSTEMI. - If no intervention is planned, consider Brilinta with low dose aspirin and discontinue Plavix. Will discuss with Cardiology. - Diabetes mellitus - Continue Levemir 40 units QHS as well as sliding scale insulin. - Will add premeal coverage with Aspart 3 units TIDAC if blood glucose > 110. - Hypothyroidism - Continue Levothyroxine 50mcg Qday. - Glaucoma - continue Timolol. Full code. Heparin SQ 5000 units Q12hrs. Cole Espinoza DO Aug 06, 2016 11:28
--- NOTE | 2016-08-06 15:21 | PD.CARD.PN ---
Subjective Subjective Remarks No CP or SOB, back on the floor Objective Medications Current Medications Medications (Trade) Dose Ordered Sig/Jacek Route Start Time Stop Time Status Last Admin (Aspirin) 325 mg DAILY PO 08/04/16 09:00 08/06/16 09:00 (Nitrostat Sl) 0.4 mg Q5M PRN SL 08/02/16 19:15 (NS Flush) 2 ml UNSCH PRN IV FLUSH 08/02/16 19:15 (NS Flush) 2 ml BID IV FLUSH 08/02/16 21:00 08/06/16 09:00 (Tylenol) 650 mg Q4H PRN PO 08/02/16 19:15 (Colace) 100 mg Q12H PO 08/02/16 20:00 08/06/16 08:59 (Senokot) 17.2 mg Q12H PRN PO 08/02/16 19:15 (Tylenol) 650 mg Q6H PRN PO 08/02/16 19:15 ([place] 5-325 Mg) 1 tab Q4H PRN PO 08/02/16 19:15 08/05/16 20:12 ([place] 7.5-325 Mg) 1 tab Q4H PRN PO 08/02/16 19:15 (Morphine Inj) 1 mg Q3H PRN IV 08/02/16 19:15 (Narcan Inj) 0.4 mg UNSCH PRN IV 08/02/16 19:15 (Coreg) 6.25 mg BID PO 08/02/16 21:00 Hold 08/04/16 09:03 (Plavix) 75 mg DAILY PO 08/03/16 09:00 08/06/16 09:00 (Synthroid) 50 mcg DAILY@06 PO 08/03/16 06:00 08/06/16 06:05 (Theragran Hematinic) 1 tab DAILY PO 08/03/16 09:00 08/04/16 09:03 Patient Own Medication PT OWN MED: AZOPT (BRINZOLAMI... BID RIGHT EYE 08/02/16 21:00 Hold (Levemir Inj) 40 units HS SQ 08/02/16 21:00 08/05/16 20:20 (Pravachol) 40 mg HS PO 08/02/16 21:00 08/05/16 20:13 (Xalatan 0.005% Opth Soln) 1 drop HS RIGHT EYE 08/02/16 21:00 08/05/16 20:16 (Lasix Inj) 40 mg BID@09,18 IV PUSH 08/03/16 09:00 Hold 08/04/16 09:03 (Alphagan 0.2% Opth Soln) 1 drop Q12HR RIGHT EYE 08/02/16 21:00 08/06/16 09:00 (Timoptic 0.5% Opth Soln) 1 drop Q12HR RIGHT EYE 08/02/16 21:00 08/06/16 09:00 (Zofran Inj) 4 mg Q8HR PRN IV PUSH 08/03/16 07:45 08/03/16 10:22 (Peridex 0.12% Liq) 15 ml BID@08,20 MT 08/04/16 20:00 08/05/16 08:00 (D50w (Vial) Inj) 25 ml UNSCH PRN IV PUSH 08/04/16 16:00 (Tears Naturale Opth Soln) 1 drop TID PRN EACH EYE 08/04/16 19:59 Vital Signs / I&O Vital Signs Date Time Temp Pulse Resp B/P Pulse Ox O2 Delivery O2 Flow Rate FiO2 08/06/16 15:07 97.8 109 22 123/65 95 08/06/16 12:07 98.8 108 21 127/71 95 08/06/16 10:00 107 08/06/16 08:00 104 08/06/16 08:00 97.8 103 26 125/76 94 08/06/16 07:00 94 Nasal Cannula 3.00 40 08/06/16 06:00 103 08/06/16 04:00 102 08/06/16 04:00 98.8 102 28 128/80 93 08/06/16 02:00 100 08/06/16 00:00 102 08/06/16 00:00 98.9 102 26 128/74 95 08/05/16 22:00 103 08/05/16 20:46 97 Nasal Cannula 3.00 08/05/16 20:00 100 08/05/16 20:00 99.3 100 29 112/60 95 08/05/16 19:00 95 Nasal Cannula 3.00 08/05/16 18:00 102 08/05/16 16:00 98.6 108 28 131/71 100 08/05/16 16:00 108 I/O 08/05/16 08/05/16 08/05/16 08/06/16 08/06/16 08/06/16 07:00 15:00 23:00 07:00 15:00 23:00 Intake Total 281 ml 436 ml 68 ml 360 ml 240 ml Output Total 1200 ml 1400 ml 1300 ml 700 ml Balance -919 ml -964 ml -1232 ml -340 ml 240 ml Intake Oral 360 ml 240 ml IV Total 281 ml 436 ml 68 ml 0 ml Output Urine Total 1200 ml 1400 ml 1300 ml 700 ml # Bowel Movements 0 0 0 0 Physical Exam GENERAL: In NAD SKIN: Warm and dry. HEAD: Normocephalic. EYES: No scleral icterus. No injection or drainage. NECK: Supple, trachea midline. No JVD or lymphadenopathy. CARDIOVASCULAR: Regular rate and rhythm without murmurs, gallops, or rubs. RESPIRATORY: Breath sounds equal bilaterally GASTROINTESTINAL: Abdomen soft, non-tender, nondistended. MUSCULOSKELETAL: No cyanosis, or edema. Laboratory Laboratory Tests Test 08/05/16 08/05/16 08/06/16 15:45 17:30 03:10 Sodium Level 136 MEQ/L 135 MEQ/L Potassium Level 4.0 MEQ/L 3.7 MEQ/L Chloride Level 96 MEQ/L 94 MEQ/L Carbon Dioxide Level 33.5 MEQ/L 35.6 MEQ/L Anion Gap 7 MEQ/L 5 MEQ/L Blood Urea Nitrogen 43 MG/DL 46 MG/DL Creatinine 1.60 MG/DL 1.71 MG/DL Estimat Glomerular Filtration 43 ML/MIN 40 ML/MIN Rate Random Glucose 148 MG/DL 82 MG/DL Calcium Level 9.2 MG/DL 9.1 MG/DL Magnesium Level 2.6 MG/DL Activated Partial 43.4 SEC Thromboplast Time White Blood Count 11.8 TH/MM3 Red Blood Count 4.11 MIL/MM3 Hemoglobin 13.0 GM/DL Hematocrit 40.3 % Mean Corpuscular Volume 97.9 FL Mean Corpuscular Hemoglobin 31.7 PG Mean Corpuscular Hemoglobin 32.3 % Concent Red Cell Distribution Width 14.9 % Platelet Count 264 TH/MM3 Mean Platelet Volume 9.2 FL Imaging Last Impressions Chest X-Ray 08/05/16 0600 Signed Impressions: Service Date/Time: Friday, August 05, 2016 04:19 - CONCLUSION: Cardiomegaly with interstitial edema. Osbaldo Abebe MD Assessment and Plan Problem List: (1) PEA (Pulseless electrical activity) (2) Respiratory failure (3) ICD (implantable cardioverter-defibrillator) in place (4) NSTEMI (non-ST elevated myocardial infarction) (5) Ischemic cardiomyopathy (6) CAD (coronary artery disease) (7) PVD (peripheral vascular disease) (8) DM (diabetes mellitus) Assessment and Plan No new cardiac issues. Continue tx for CHF including diuresis, closely monitoring his renal fx. PEA arrest was likely of respiratory origin. ICD evaluation w no arrhythmias or therapies. Echo w severe LV dysfunction, mod TR, PAP 68 mmHg. Increase activity. Nahomy Love MD Aug 06, 2016 15:21
[2016-08-06] MEDS: ACETAMINOPHEN/HYDROcodone 325 MG/7.5 MG TAB PO PRN (20:03)
[2016-08-06] MEDS: PRAVASTATIN SOD 40 MG TAB PO SCH (20:04)
[2016-08-06] MEDS: INSULIN DETEMIR 100 UNITS/ML VIAL SQ SCH (20:07)
[2016-08-06] MEDS: LATANOPROST 0.005% OPHT SOLN 2.5 ML BTL RIGHT EYE SCH (20:12)
[2016-08-07] VITALS (11 sets, daily range): BP systolic 100–136; BP diastolic 44–80; PULSE 67–111; RESP 18–21; TEMP 97.3–98.2; O2SAT 93–98
[2016-08-07] MEDS: ACETAMINOPHEN/HYDROcodone 325 MG/7.5 MG TAB PO PRN ×4 (02:12→16:56)
[2016-08-07] MEDS: RESP: ALBUTEROL 2.5 MG/IPRATROPIUM 0.5 MG NEB (SCH) INH ×4 (04:36→20:11)
[2016-08-07 05:54] LABS: BICARBONATE 33.1 MEQ/L (21.0-32.0)
[2016-08-07 05:55] LABS: HEMATOCRIT 41.1 % (39.0-51.0); MEAN CORPUSCULAR HGB CONC 33.7 % (32.0-36.0); PLATELET COUNT 279 TH/MM3 (150-450); RED BLOOD COUNT 4.19 MIL/MM3 (4.50-5.90); RED CELL DISTRIBUTION WIDTH 14.5 % (11.6-17.2); REVIEW FLAG FINAL; WHITE BLOOD COUNT 12.2 TH/MM3 (4.0-11.0)
[2016-08-07] MEDS: LEVOTHYROXINE SODIUM 50 MCG TAB PO SCH (06:12)
[2016-08-07] MEDS: INSULIN NovoLIN REGULAR SUPPLEMENTAL SCALE SQ SCH ×4 (06:13→20:41)
[2016-08-07] MEDS: CHLORHEXIDINE 0.12% (ORAL KIT) 15 ML CUP MT SCH ×2 (07:43→20:00)
[2016-08-07] MEDS: DOCUSATE SODIUM 100 MG CAP PO SCH ×2 (10:20→20:39)
[2016-08-07] MEDS: MULTIVITAMIN HEMATINIC THERAPEUTIC TAB PO SCH ×2 (10:21→12:10)
[2016-08-07] MEDS: FUROSEMIDE 20 MG TAB PO SCH (10:21)
[2016-08-07] MEDS: HEPARIN SODIUM - SQ 10,000 UNITS/ML VIAL SQ SCH ×2 (10:22→20:40)
[2016-08-07] MEDS: ASPIRIN 325 MG TAB PO SCH (10:22)
[2016-08-07] MEDS: CLOPIDOGREL 75 MG TAB PO SCH (10:23)
[2016-08-07] MEDS: CARVEDILOL 6.25 MG TAB PO SCH ×2 (10:24→21:00)
[2016-08-07] MEDS: SODIUM CHLORIDE 0.9% FLUSH 10 ML FLUSH IV FLUSH SCH ×2 (10:28→20:57)
[2016-08-07] MEDS: BRIMONIDINE TARTRATE 0.2% OPHT SOLN 5 ML BTL RIGHT EYE SCH ×2 (12:10→20:53)
[2016-08-07] MEDS: TIMOLOL MALEATE 0.5% OPHT SOLN 5 ML BTL RIGHT EYE SCH ×2 (12:11→20:53)
--- NOTE | 2016-08-07 13:26 | PD.CARD.PN ---
Subjective Subjective Remarks No CP or SOB, feels better Objective Medications Current Medications Medications (Trade) Dose Ordered Sig/Jacek Route Start Time Stop Time Status Last Admin (Nitrostat Sl) 0.4 mg Q5M PRN SL 08/02/16 19:15 (NS Flush) 2 ml UNSCH PRN IV FLUSH 08/02/16 19:15 (NS Flush) 2 ml BID IV FLUSH 08/02/16 21:00 08/07/16 10:28 (Tylenol) 650 mg Q4H PRN PO 08/02/16 19:15 (Colace) 100 mg Q12H PO 08/02/16 20:00 08/07/16 10:20 (Senokot) 17.2 mg Q12H PRN PO 08/02/16 19:15 (Tylenol) 650 mg Q6H PRN PO 08/02/16 19:15 ([place] 5-325 Mg) 1 tab Q4H PRN PO 08/02/16 19:15 08/05/16 20:12 ([place] 7.5-325 Mg) 1 tab Q4H PRN PO 08/02/16 19:15 08/07/16 12:58 (Morphine Inj) 1 mg Q3H PRN IV 08/02/16 19:15 (Narcan Inj) 0.4 mg UNSCH PRN IV 08/02/16 19:15 (Coreg) 6.25 mg BID PO 08/02/16 21:00 08/07/16 10:24 (Synthroid) 50 mcg DAILY@06 PO 08/03/16 06:00 08/07/16 06:12 (Theragran Hematinic) 1 tab DAILY PO 08/03/16 09:00 08/07/16 12:10 Patient Own Medication PT OWN MED: AZOPT (BRINZOLAMI... BID RIGHT EYE 08/02/16 21:00 Hold (Levemir Inj) 40 units HS SQ 08/02/16 21:00 08/06/16 20:07 (Pravachol) 40 mg HS PO 08/02/16 21:00 08/06/16 20:04 (Xalatan 0.005% Opth Soln) 1 drop HS RIGHT EYE 08/02/16 21:00 08/06/16 20:12 (Alphagan 0.2% Opth Soln) 1 drop Q12HR RIGHT EYE 08/02/16 21:00 08/07/16 12:10 (Timoptic 0.5% Opth Soln) 1 drop Q12HR RIGHT EYE 08/02/16 21:00 08/07/16 12:11 (Zofran Inj) 4 mg Q8HR PRN IV PUSH 08/03/16 07:45 08/03/16 10:22 (Peridex 0.12% Liq) 15 ml BID@08,20 MT 08/04/16 20:00 08/05/16 08:00 (D50w (Vial) Inj) 25 ml UNSCH PRN IV PUSH 08/04/16 16:00 (Tears Naturale Opth Soln) 1 drop TID PRN EACH EYE 08/04/16 19:59 (Lasix) 20 mg DAILY PO 08/07/16 09:00 08/07/16 10:21 (Heparin Inj) 5,000 units Q12HR SQ 08/07/16 09:00 08/07/16 10:22 (Aspirin Chew) 81 mg DAILY CHEW 08/08/16 09:00 (Brilinta) 90 mg BID PO 08/08/16 09:00 Vital Signs / I&O Vital Signs Date Time Temp Pulse Resp B/P Pulse Ox O2 Delivery O2 Flow Rate FiO2 08/07/16 12:07 98.2 111 20 136/77 95 08/07/16 08:41 97 Nasal Cannula 3.00 08/07/16 08:06 97.3 107 20 127/61 96 08/07/16 04:20 97.4 101 18 128/80 95 08/07/16 03:56 18 08/07/16 02:55 109 08/06/16 23:30 98.7 106 18 118/69 96 08/06/16 20:52 95 Nasal Cannula 3.00 08/06/16 20:20 98.9 105 25 111/56 93 08/06/16 20:15 95 Nasal Cannula 4.00 08/06/16 20:15 95 Nasal Cannula 4.00 08/06/16 15:07 97.8 109 22 123/65 95 I/O 08/06/16 08/06/16 08/06/16 08/07/16 08/07/16 08/07/16 07:00 15:00 23:00 07:00 15:00 23:00 Intake Total 360 ml 240 ml 240 ml 200 ml Output Total 700 ml 200 ml 450 ml Balance -340 ml 240 ml 40 ml -250 ml Intake Oral 360 ml 240 ml 240 ml 200 ml IV Total 0 ml Output Urine Total 700 ml 200 ml 450 ml # Bowel Movements 0 0 0 Physical Exam GENERAL: In NAD SKIN: Warm and dry. HEAD: Normocephalic. EYES: No scleral icterus. No injection or drainage. NECK: Supple, trachea midline. No JVD or lymphadenopathy. CARDIOVASCULAR: Regular rate and rhythm without murmurs, gallops, or rubs. RESPIRATORY: Breath sounds equal bilaterally GASTROINTESTINAL: Abdomen soft, non-tender, nondistended. MUSCULOSKELETAL: No cyanosis, or edema. Laboratory Laboratory Tests Test 08/07/16 05:00 White Blood Count 12.2 TH/MM3 Red Blood Count 4.19 MIL/MM3 Hemoglobin 13.9 GM/DL Hematocrit 41.1 % Mean Corpuscular Volume 98.0 FL Mean Corpuscular Hemoglobin 33.0 PG Mean Corpuscular Hemoglobin 33.7 % Concent Red Cell Distribution Width 14.5 % Platelet Count 279 TH/MM3 Mean Platelet Volume 9.1 FL Sodium Level 136 MEQ/L Potassium Level 4.0 MEQ/L Chloride Level 97 MEQ/L Carbon Dioxide Level 33.1 MEQ/L Anion Gap 6 MEQ/L Blood Urea Nitrogen 52 MG/DL Creatinine 1.63 MG/DL Estimat Glomerular Filtration 42 ML/MIN Rate Random Glucose 116 MG/DL Calcium Level 9.3 MG/DL Imaging Last Impressions Chest X-Ray 08/05/16 0600 Signed Impressions: Service Date/Time: Friday, August 05, 2016 04:19 - CONCLUSION: Cardiomegaly with interstitial edema. Osbaldo Abebe MD Assessment and Plan Problem List: (1) PEA (Pulseless electrical activity) (2) Respiratory failure (3) ICD (implantable cardioverter-defibrillator) in place (4) NSTEMI (non-ST elevated myocardial infarction) (5) Ischemic cardiomyopathy (6) CAD (coronary artery disease) (7) PVD (peripheral vascular disease) (8) DM (diabetes mellitus) Assessment and Plan No new cardiac issues. Continue tx for CHF including diuresis, closely monitoring his renal fx. Continue beta jerald, add low dose lisinopril. PEA arrest was likely of respiratory origin. ICD evaluation w no arrhythmias or therapies. Echo w severe LV dysfunction, mod TR, PAP 68 mmHg. Increase activity. Switch Plavix to Brilinta, continue baby ASA. Nahomy Love MD Aug 07, 2016 13:26
[2016-08-07] MEDS: LISINOPRIL 5 MG TAB PO SCH (16:12)
--- NOTE | 2016-08-07 17:40 | HHI.PR ---
Subjective Remarks Follow up for shortness of breath, weakness, NSTEMI, respiratory arrest leading to PEA. Patient is currently doing well. No chest pain or shortness of breath. No fever or chills. Objective Vitals Vital Signs Date Time Temp Pulse Resp B/P Pulse Ox O2 Delivery O2 Flow Rate FiO2 08/07/16 12:07 98.2 111 20 136/77 95 08/07/16 08:41 97 Nasal Cannula 3.00 08/07/16 08:06 97.3 107 20 127/61 96 08/07/16 08:00 96 08/07/16 08:00 Nasal Cannula 3.00 08/07/16 04:20 97.4 101 18 128/80 95 08/07/16 03:56 18 08/07/16 02:55 109 08/06/16 23:30 98.7 106 18 118/69 96 08/06/16 20:52 95 Nasal Cannula 3.00 08/06/16 20:20 98.9 105 25 111/56 93 08/06/16 20:15 95 Nasal Cannula 4.00 08/06/16 20:15 95 Nasal Cannula 4.00 I/O 08/06/16 08/06/16 08/06/16 08/07/16 08/07/16 08/07/16 07:00 15:00 23:00 07:00 15:00 23:00 Intake Total 360 ml 240 ml 240 ml 200 ml Output Total 700 ml 200 ml 450 ml Balance -340 ml 240 ml 40 ml -250 ml Intake Oral 360 ml 240 ml 240 ml 200 ml IV Total 0 ml Output Urine Total 700 ml 200 ml 450 ml # Bowel Movements 0 0 0 Result Diagram: 08/07/16 0500 08/07/16 0500 Objective Remarks GENERAL: Alert, NAD. SKIN: Warm and dry. HEAD: Normocephalic. EYES: No scleral icterus. No injection or drainage. NECK: Supple, trachea midline. No JVD or lymphadenopathy. CARDIOVASCULAR: Regular rate and rhythm without murmurs, gallops, or rubs. RESPIRATORY: Breath sounds equal bilaterally. No accessory muscle use. GASTROINTESTINAL: Abdomen soft, non-tender, nondistended. MUSCULOSKELETAL: No cyanosis, or edema. BACK: Nontender without obvious deformity. No CVA tenderness. Procedures Echo 08/03/2016 - Left ventricle: The cavity size was dilated. Wall thickness was normal. Systolic function was severely reduced. The estimated ejection fraction was 25%. Wall motion was normal; there were no regional wall motion abnormalities. - Mitral valve: Calcified annulus. Mild regurgitation. - Tricuspid valve: Moderate regurgitation. - Pulmonary arteries: Systolic pressure was moderately increased. PA peak pressure: 68mm Hg (S). A/P Problem List: (1) NSTEMI (non-ST elevated myocardial infarction) ICD Code: I21.4 Status: Acute (2) CAD (coronary artery disease) ICD Code: I25.10 Status: Acute (3) Ischemic cardiomyopathy ICD Code: I25.5 Status: Acute (4) DM (diabetes mellitus) ICD Code: E11.9 Status: Acute (5) PVD (peripheral vascular disease) ICD Code: I73.9 Status: Acute (6) Acute respiratory failure with hypoxia ICD Code: J96.01 Status: Acute Assessment and Plan Mr. Damico is a 70 year old male with a history of ischemic cardiomyopathy, CAD, PVD, DM, hypothyroidism who presented to the ED due to shortness of breath and weakness. Initial work up indicated troponin 3.18. Cardiology was contacted by ED and patient was started on heparin drip. On 08/04/2016, patient went into respiratory arrest and PEA. Code blue was initiated and patient was intubated by ICU team. Patient was monitored in the ICU and subsequently transferred to the medical floor. - Acute respiratory failure with hypoxia - Cardiopulmonary arrest s/p ACLS protocol, ROSC - Patient was extubated on 08/05/2016. Received Lasix 80mg for pulmonary edema. - Acute NSTEMI - CAD s/p CABG - Ischemic cardiomyopathy - s/p AICD placement. - Acute on chronic systolic congestive heart failure - Troponins 3.18, 2.74, 2.01. - Continue Aspirin. Switch Plavix to Ticagrelor. Continue Carvedilol 6.25mg BID. Heart rate is in the low 100s. - Currently BP is on the lower side. Lasix 20mg Qday. - Continue Statin - will discuss with patient if he has any trouble with Lipitor. Lipitor 80mg QHS would be ideal. - Cardiology following. - Diabetes mellitus - Continue Levemir 40 units QHS as well as sliding scale insulin. - Will add premeal coverage with Aspart 3 units TIDAC if blood glucose > 110. - Hypothyroidism - Continue Levothyroxine 50mcg Qday. - Glaucoma - continue Timolol. Full code. Heparin SQ 5000 units Q12hrs. Discharge: If a placement is arranged, patient can be discharged. Cole Espinoza DO Aug 07, 2016 5:40 pm
[2016-08-07] MEDS ORDERED: TAMSULOSIN HCL 0.4 MG CAP PO ONE (20:00)
[2016-08-07] MEDS: PRAVASTATIN SOD 40 MG TAB PO SCH (20:39)
[2016-08-07] MEDS: INSULIN DETEMIR 100 UNITS/ML VIAL SQ SCH (20:41)
[2016-08-07] MEDS: LATANOPROST 0.005% OPHT SOLN 2.5 ML BTL RIGHT EYE SCH (20:53)
[2016-08-08] MEDS: RESP: ALBUTEROL 2.5 MG/IPRATROPIUM 0.5 MG NEB (SCH) INH ×2 (04:31→08:35)
[2016-08-08 04:50] VITALS: BP 102/57; PULSE 92; RESP 18; TEMP 98; O2SAT 96
[2016-08-08] MEDS: LEVOTHYROXINE SODIUM 50 MCG TAB PO SCH (05:34)
[2016-08-08 05:50] LABS: HEMATOCRIT 44.2 % (39.0-51.0); MEAN CELL VOLUME 98.8 FL (80.0-100.0); MEAN CORPUSCULAR HEMOGLOBIN 31.7 PG (27.0-34.0); MEAN CORPUSCULAR HGB CONC 32.1 % (32.0-36.0); PLATELET COUNT 279 TH/MM3 (150-450); RED BLOOD COUNT 4.47 MIL/MM3 (4.50-5.90); RED CELL DISTRIBUTION WIDTH 14.7 % (11.6-17.2); REVIEW FLAG FINAL
[2016-08-08] MEDS: INSULIN NovoLIN REGULAR SUPPLEMENTAL SCALE SQ SCH ×2 (06:09→11:00)
[2016-08-08 06:12] LABS: BICARBONATE 31.9 MEQ/L (21.0-32.0); POTASSIUM 4.4 MEQ/L (3.5-5.1)
[2016-08-08] MEDS: ACETAMINOPHEN/HYDROcodone 325 MG/7.5 MG TAB PO PRN ×2 (06:33→13:49)
[2016-08-08 08:00] VITALS: BP 97/50; PULSE 88; RESP 22; TEMP 97.3; O2SAT 96
[2016-08-08] MEDS: CHLORHEXIDINE 0.12% (ORAL KIT) 15 ML CUP MT SCH (08:00)
[2016-08-08] MEDS: CARVEDILOL 6.25 MG TAB PO SCH (09:00)
[2016-08-08] MEDS: SODIUM CHLORIDE 0.9% FLUSH 10 ML FLUSH IV FLUSH SCH (09:00)
[2016-08-08] MEDS ORDERED: TICAGRELOR 90 MG TAB PO SCH (09:00)
[2016-08-08] MEDS: TIMOLOL MALEATE 0.5% OPHT SOLN 5 ML BTL RIGHT EYE SCH (09:00)
[2016-08-08] MEDS ORDERED: TAMSULOSIN HCL 0.4 MG CAP PO SCH (09:00)
[2016-08-08] MEDS: BRIMONIDINE TARTRATE 0.2% OPHT SOLN 5 ML BTL RIGHT EYE SCH (09:00)
[2016-08-08] MEDS ORDERED: ASPIRIN 81 MG CHEW TAB CHEW SCH (09:00)
--- NOTE | 2016-08-08 10:27 | PD.CARD.PN ---
Subjective Subjective Remarks Denies CP or SOB Objective Medications Current Medications Medications (Trade) Dose Ordered Sig/Jacek Route Start Time Stop Time Status Last Admin (Nitrostat Sl) 0.4 mg Q5M PRN SL 08/02/16 19:15 (NS Flush) 2 ml UNSCH PRN IV FLUSH 08/02/16 19:15 (NS Flush) 2 ml BID IV FLUSH 08/02/16 21:00 08/07/16 20:57 (Tylenol) 650 mg Q4H PRN PO 08/02/16 19:15 (Colace) 100 mg Q12H PO 08/02/16 20:00 08/07/16 20:39 (Senokot) 17.2 mg Q12H PRN PO 08/02/16 19:15 08/07/16 16:56 (Tylenol) 650 mg Q6H PRN PO 08/02/16 19:15 ([place] 5-325 Mg) 1 tab Q4H PRN PO 08/02/16 19:15 08/05/16 20:12 ([place] 7.5-325 Mg) 1 tab Q4H PRN PO 08/02/16 19:15 08/08/16 06:33 (Morphine Inj) 1 mg Q3H PRN IV 08/02/16 19:15 (Narcan Inj) 0.4 mg UNSCH PRN IV 08/02/16 19:15 (Coreg) 6.25 mg BID PO 08/02/16 21:00 08/07/16 10:24 (Synthroid) 50 mcg DAILY@06 PO 08/03/16 06:00 08/08/16 05:34 (Theragran Hematinic) 1 tab DAILY PO 08/03/16 09:00 08/07/16 12:10 Patient Own Medication PT OWN MED: AZOPT (BRINZOLAMI... BID RIGHT EYE 08/02/16 21:00 Hold (Levemir Inj) 40 units HS SQ 08/02/16 21:00 08/07/16 20:41 (Pravachol) 40 mg HS PO 08/02/16 21:00 08/07/16 20:39 (Xalatan 0.005% Opth Soln) 1 drop HS RIGHT EYE 08/02/16 21:00 08/07/16 20:53 (Alphagan 0.2% Opth Soln) 1 drop Q12HR RIGHT EYE 08/02/16 21:00 08/07/16 20:53 (Timoptic 0.5% Opth Soln) 1 drop Q12HR RIGHT EYE 08/02/16 21:00 08/07/16 20:53 (Zofran Inj) 4 mg Q8HR PRN IV PUSH 08/03/16 07:45 08/03/16 10:22 (Peridex 0.12% Liq) 15 ml BID@08,20 MT 08/04/16 20:00 08/05/16 08:00 (D50w (Vial) Inj) 25 ml UNSCH PRN IV PUSH 08/04/16 16:00 (Tears Naturale Opth Soln) 1 drop TID PRN EACH EYE 08/04/16 19:59 (Lasix) 20 mg DAILY PO 08/07/16 09:00 08/07/16 10:21 (Heparin Inj) 5,000 units Q12HR SQ 08/07/16 09:00 08/07/16 20:40 (Aspirin Chew) 81 mg DAILY CHEW 08/08/16 09:00 (Brilinta) 90 mg BID PO 08/08/16 09:00 (Prinivil) 5 mg DAILY PO 08/07/16 13:30 08/07/16 16:12 (Flomax) 0.4 mg DAILY PO 08/08/16 09:00 Vital Signs / I&O Vital Signs Date Time Temp Pulse Resp B/P Pulse Ox O2 Delivery O2 Flow Rate FiO2 08/08/16 08:00 97.3 88 22 97/50 96 08/08/16 04:50 98.0 92 18 102/57 96 08/07/16 23:40 97.6 89 20 101/44 98 08/07/16 21:00 Nasal Cannula 4.00 08/07/16 20:00 67 08/07/16 19:45 97.4 91 21 114/46 95 08/07/16 18:11 97 Nasal Cannula 3.00 08/07/16 16:05 98.0 95 20 100/56 93 08/07/16 12:07 98.2 111 20 136/77 95 I/O 08/07/16 08/07/16 08/07/16 08/08/16 08/08/16 08/08/16 07:00 15:00 23:00 07:00 15:00 23:00 Intake Total 200 ml 480 ml 120 ml 100 ml Output Total 450 ml 400 ml 0 ml 350 ml Balance -250 ml 80 ml 120 ml -250 ml Intake Oral 200 ml 480 ml 120 ml 100 ml Output Urine Total 450 ml 400 ml 0 ml 350 ml Bladder Scan Volume Amount 462 ml 462 ml # Bowel Movements 0 0 0 0 Physical Exam GENERAL: In NAD SKIN: Warm and dry. HEAD: Normocephalic. EYES: No scleral icterus. No injection or drainage. NECK: Supple, trachea midline. No JVD or lymphadenopathy. CARDIOVASCULAR: Regular rate and rhythm without murmurs, gallops, or rubs. RESPIRATORY: Breath sounds equal bilaterally GASTROINTESTINAL: Abdomen soft, non-tender, nondistended. MUSCULOSKELETAL: No cyanosis, or edema. Laboratory Laboratory Tests Test 08/08/16 05:30 White Blood Count 13.0 TH/MM3 Red Blood Count 4.47 MIL/MM3 Hemoglobin 14.2 GM/DL Hematocrit 44.2 % Mean Corpuscular Volume 98.8 FL Mean Corpuscular Hemoglobin 31.7 PG Mean Corpuscular Hemoglobin 32.1 % Concent Red Cell Distribution Width 14.7 % Platelet Count 279 TH/MM3 Mean Platelet Volume 8.9 FL Sodium Level 133 MEQ/L Potassium Level 4.4 MEQ/L Chloride Level 96 MEQ/L Carbon Dioxide Level 31.9 MEQ/L Anion Gap 5 MEQ/L Blood Urea Nitrogen 63 MG/DL Creatinine 1.95 MG/DL Estimat Glomerular Filtration 34 ML/MIN Rate Random Glucose 108 MG/DL Calcium Level 9.4 MG/DL Imaging Last Impressions Chest X-Ray 08/05/16 0600 Signed Impressions: Service Date/Time: Friday, August 05, 2016 04:19 - CONCLUSION: Cardiomegaly with interstitial edema. Osbaldo Abebe MD Assessment and Plan Problem List: (1) PEA (Pulseless electrical activity) (2) Respiratory failure (3) ICD (implantable cardioverter-defibrillator) in place (4) NSTEMI (non-ST elevated myocardial infarction) (5) Ischemic cardiomyopathy (6) CAD (coronary artery disease) (7) PVD (peripheral vascular disease) (8) DM (diabetes mellitus) Assessment and Plan Remains stable. Continue tx for CHF including diuresis, closely monitoring his renal fx. Continue beta jerald and low dose lisinopril. Continue Brilinta and baby ASA. PEA arrest was likely of respiratory origin. ICD evaluation w no arrhythmias or therapies. Echo w severe LV dysfunction, mod TR, PAP 68 mmHg. Increase activity. Nahomy Love MD Aug 08, 2016 10:27
[2016-08-08] MEDS: LISINOPRIL 5 MG TAB PO SCH (10:42)
[2016-08-08] MEDS: FUROSEMIDE 20 MG TAB PO SCH (10:43)
[2016-08-08] MEDS: DOCUSATE SODIUM 100 MG CAP PO SCH (10:43)
[2016-08-08] MEDS: MULTIVITAMIN HEMATINIC THERAPEUTIC TAB PO SCH (10:43)
[2016-08-08] MEDS: HEPARIN SODIUM - SQ 10,000 UNITS/ML VIAL SQ SCH (10:45)
[2016-08-08] MEDS ORDERED: HYDR-3516 PO (11:22)
[2016-08-08] MEDS ORDERED: BRIL90TA PO (11:22)
[2016-08-08] MEDS ORDERED: FURO20TA PO (11:22)
--- NOTE | 2016-08-08 11:26 | HHI.DS ---
Discharge Summary Admission Date Aug 02, 2016 at 6:12 pm Discharge Date: Aug 08, 2016 Admitting Diagnosis Elevated Troponin/Hypoxic (1) NSTEMI (non-ST elevated myocardial infarction) ICD Code: I21.4 Diagnosis: Principal (2) CAD (coronary artery disease) ICD Code: I25.10 (3) Ischemic cardiomyopathy ICD Code: I25.5 (4) DM (diabetes mellitus) ICD Code: E11.9 (5) PVD (peripheral vascular disease) ICD Code: I73.9 (6) Acute respiratory failure with hypoxia ICD Code: J96.01 Diagnosis: Principal (7) Cardiopulmonary arrest with successful resuscitation ICD Code: I46.9 Diagnosis: Principal Procedures Echo 08/03/2016 - Left ventricle: The cavity size was dilated. Wall thickness was normal. Systolic function was severely reduced. The estimated ejection fraction was 25%. Wall motion was normal; there were no regional wall motion abnormalities. - Mitral valve: Calcified annulus. Mild regurgitation. - Tricuspid valve: Moderate regurgitation. - Pulmonary arteries: Systolic pressure was moderately increased. PA peak pressure: 68mm Hg (S). Brief History - From Admission This is a 70-year-old male with a history of congestive heart failure, cardiomyopathy status post AICD, coronary artery disease status post bypass, PAD , diabetes mellitus, chronic kidney disease stage is not known, hypertension, hyperlipidemia, hypothyroidism and glaucoma. He presents to the emergency department with several day history of shortness of breath and weakness. He has dyspnea on exertion, orthopnea but denies PND, weight gain and lower extremity swelling. Claims he is compliant with his medications as well as fluid and salt restriction. Patient states he had a head cold last week which is seemingly improved. Patient's family has placed him on O2 via nasal cannula over the past 2 days as they were traveling, and his sister is on oxygen normally. Patient denies fever, chills, or chest pain. Patient has been coughing. In the emergency department, he was found to have elevated troponin and was given aspirin and started on IV heparin drip after discussion with cardiology. Patient is not a good historian but reports he had unremarkable stress test this year. Patient has a history of CHF and has an implanted defibrillator/pacemaker, which he states was just interrogated approximately one week ago. Patient denies abdominal pain, nausea, vomiting, or diarrhea. CBC/BMP: 08/08/16 0530 08/08/16 0530 Significant Findings Laboratory Tests Test 08/05/16 08/05/16 08/06/16 08/07/16 15:45 17:30 03:10 05:00 Chloride Level 96 MEQ/L 94 MEQ/L 97 MEQ/L (98-107) (98-107) (98-107) Carbon Dioxide Level 33.5 MEQ/L 35.6 MEQ/L 33.1 MEQ/L (21.0-32.0) (21.0-32.0) (21.0-32.0) Blood Urea Nitrogen 43 MG/DL (7-18) 46 MG/DL (7-18) 52 MG/DL (7-18) Creatinine 1.60 MG/DL 1.71 MG/DL 1.63 MG/DL (0.60-1.30) (0.60-1.30) (0.60-1.30) Estimat Glomerular Filtration 43 ML/MIN (>89) 40 ML/MIN (>89) 42 ML/MIN (>89) Rate Random Glucose 148 MG/DL 116 MG/DL (74-106) (74-106) Magnesium Level 2.6 MG/DL (1.5-2.5) Activated Partial 43.4 SEC Thromboplast Time (24.3-30.1) White Blood Count 11.8 TH/MM3 12.2 TH/MM3 (4.0-11.0) (4.0-11.0) Red Blood Count 4.11 MIL/MM3 4.19 MIL/MM3 (4.50-5.90) (4.50-5.90) Sodium Level 135 MEQ/L (136-145) Test 08/08/16 05:30 White Blood Count 13.0 TH/MM3 (4.0-11.0) Red Blood Count 4.47 MIL/MM3 (4.50-5.90) Sodium Level 133 MEQ/L (136-145) Chloride Level 96 MEQ/L (98-107) Blood Urea Nitrogen 63 MG/DL (7-18) Creatinine 1.95 MG/DL (0.60-1.30) Estimat Glomerular Filtration 34 ML/MIN (>89) Rate Random Glucose 108 MG/DL (74-106) Imaging Last Impressions Chest X-Ray 08/05/16 0600 Signed Impressions: Service Date/Time: Friday, August 05, 2016 04:19 - CONCLUSION: Cardiomegaly with interstitial edema. Osbaldo Abebe MD PE at Discharge GENERAL: Alert, NAD. SKIN: Warm and dry. HEAD: Normocephalic. EYES: No scleral icterus. No injection or drainage. NECK: Supple, trachea midline. No JVD or lymphadenopathy. CARDIOVASCULAR: Regular rate and rhythm without murmurs, gallops, or rubs. RESPIRATORY: Breath sounds equal bilaterally. No accessory muscle use. GASTROINTESTINAL: Abdomen soft, non-tender, nondistended. MUSCULOSKELETAL: No cyanosis, or edema. BACK: Nontender without obvious deformity. No CVA tenderness. Pt update on day of discharge Mr. Damico is doing well. No acute concerns. Hospital Course Mr. Damico is a 70 year old male with a history of ischemic cardiomyopathy, CAD, PVD, DM, hypothyroidism who presented to the ED due to shortness of breath and weakness. Initial work up indicated troponin 3.18. Cardiology was contacted by ED and patient was started on heparin drip. On 08/04/2016, patient went into respiratory arrest and PEA. Code blue was initiated and patient was intubated by ICU team. Patient was monitored in the ICU and subsequently transferred to the medical floor. - Acute respiratory failure with hypoxia - Cardiopulmonary arrest s/p ACLS protocol, ROSC - Patient was extubated on 08/05/2016. Received Lasix 80mg for pulmonary edema. - Acute NSTEMI - CAD s/p CABG - Ischemic cardiomyopathy - s/p AICD placement. - Acute on chronic systolic congestive heart failure - Troponins 3.18, 2.74, 2.01. - Continue Aspirin. Switch Plavix to Ticagrelor. Continue Carvedilol 6.25mg BID. Heart rate is in the low 100s. - Currently BP is on the lower side. Lasix 20mg Qday. - Continue Statin - will discuss with patient if he has any trouble with Lipitor. Lipitor 80mg QHS would be ideal. - Cardiology following. - Diabetes mellitus - Continue Levemir 40 units QHS as well as sliding scale insulin. - Will add premeal coverage with Aspart 3 units TIDAC if blood glucose > 110. - Hypothyroidism - Continue Levothyroxine 50mcg Qday. - Glaucoma - continue Timolol. Full code. Heparin SQ 5000 units Q12hrs. Discharge to SNF today. Pt Condition on Discharge: Good Discharge Disposition: Discharge to SNF Discharge Time: > 30 minutes Discharge Instructions DIET: Follow Instructions for: Heart Healthy Diet Additional Diet Instructions: Eat sitting up-right only. Activities you can perform: Regular-No Restrictions New Medications: Furosemide (Furosemide) 20 Mg Tab 20 MG PO DAILY Fluid #30 TAB Hydrocodone-Acetaminophen (Hydrocodone-Acetaminophen) 5-325 mg Tab 1 TAB PO Q4H PRN PAIN #20 TAB Ticagrelor (Brilinta) 90 Mg Tab 90 MG PO BID Blood Clot Prevention #180 Ref 3 TAB Continued Medications: Aspirin DR (Aspirin EC Low Dose) 81 Mg Tabec 81 MG PO DAILY TAB Brimonidine-Timolol Opth Drops (Combigan Opth Drops) 0.2-0.5% Soln 1 DROP RIGHT EYE Q12HR Glaucoma Ref 0 BOTTLE Brinzolamide Opth Drops (Azopt Opth Drops) 1% Susp 1 DROP RIGHT EYE BID BOTTLE Carvedilol (Carvedilol) 6.25 Mg Tab 6.25 MG PO BID #60 Ref 0 TAB Insulin Detemir Inj (Levemir Flextouch Pen Inj) 300 unit/3 ML Pen 40 UNITS SQ HS Blood Sugar Management Ref 0 PEN Isosorbide Mononitrate ER (Isosorbide Mononitrate ER) 30 Mg Adriana 30 MG PO DAILY Prevent Chest Pain #30 Ref 0 TAB Levothyroxine (Levothyroxine) 50 Mcg Tab 50 MCG PO DAILY Thyroid #30 Ref 0 TAB Multiple Vitamins W/ Minerals (Centrum Silver Adult 50+) 1 Tab Tab 1 TAB PO DAILY Nitroglycerin SL (Nitroglycerin SL) 0.4 Mg Subl 0.4 MG SL DIRECTED ONE TABLET UNDER THE TONGUE NEEDED FOR CHEST PAIN, MAY REPEAT EVERY FIVE MINUTES FOR A TOTAL OF 3 DOSES OR CALL 911 IF NO RELIEF PRN CHEST PAIN #100 Ref 0 TAB.SL Polyvinyl Alcohol-Povidone Opth Drops (Refresh Opth Drops) 1.4-0.6% Drops 1 DROP EACH EYE TID PRN DRY EYE #1 Ref 0 BOTTLE Simvastatin (Zocor) 20 Mg Tab 20 MG PO HS Cholesterol Management #30 Ref 0 TAB Travoprost Opth Drops (Travatan Z Opth Drops) 0.004 % Soln 1 DROP RIGHT EYE HS Glaucoma #1 Ref 0 BOTTLE Discontinued Medications: Clopidogrel (Plavix) 75 Mg Tab 75 MG PO DAILY Blood Clot Prevention #30 Ref 0 TAB Furosemide (Lasix) 40 Mg Tab 40 MG PO DAILY #30 Ref 0 TAB Cole Espinoza DO Aug 08, 2016 11:25
[2016-08-08 12:00] VITALS: BP 96/55; PULSE 81; RESP 22; TEMP 97.7; O2SAT 99
== END 2016-08-08 14:19 | DRG 280 ==
LOC: NEPC 15:13 → NEDA 18:12 → N04B 22:50 → N03A 08-04 10:40 → N04B 08-06 10:27
PROVIDERS: ADMIT Hospitalist; ATTEND Hospitalist
PROC: 0BH17EZ Insertion of Endotracheal Airway into Trachea, Via Natural or Artificial Opening (ICD-10-PCS; principal; 2016-08-04)
PROC: 04HY32Z Insertion of Monitoring Device into Lower Artery, Percutaneous Approach (ICD-10-PCS; 2016-08-04)
PROC: 5A1935Z Respiratory Ventilation, Less than 24 Consecutive Hours (ICD-10-PCS; 2016-08-04)
PROC: 5A12012 Performance of Cardiac Output, Single, Manual (ICD-10-PCS; 2016-08-04)
DX: I13.0 Hypertensive heart and chronic kidney disease with heart failure and stage 1 through stage 4 chronic kidney disease, or unspecified chronic kidney disease (principal); I50.23 Acute on chronic systolic (congestive) heart failure; I21.4 Non-ST elevation (NSTEMI) myocardial infarction; J96.01 Acute respiratory failure with hypoxia; I46.9 Cardiac arrest, cause unspecified; E11.51 Type 2 diabetes mellitus with diabetic peripheral angiopathy without gangrene; N18.9 Chronic kidney disease, unspecified; E78.5 Hyperlipidemia, unspecified; I25.5 Ischemic cardiomyopathy; I25.10 Atherosclerotic heart disease of native coronary artery without angina pectoris; I08.1 Rheumatic disorders of both mitral and tricuspid valves; E03.9 Hypothyroidism, unspecified; H40.9 Unspecified glaucoma; Z95.1 Presence of aortocoronary bypass graft; Z95.810 Presence of automatic (implantable) cardiac defibrillator
CPT/HCPCS: 31500; 36556; 71010; 80048; 80053; 81001; 82550; 82805; 82948; 83735; 83880; 84484; 85025; 85027; 85379; 85610; 85730; 92950; 93005; 93306; 94002; 94003; 94150; 94640; 94664; 94667; 94668; J0171; J1120; J1250; J1644; J1815; J1940; J2405; J3475; J3480

== ENCOUNTER 2016-08-13 15:08 | Inpatient (IN) | payer MEDICARE, MEDICAID ==
[2016-08-13] MEDS: SODIUM CHLORIDE 0.9% FLUSH 10 ML FLUSH IV FLUSH SCH (04:00)
[~2016-08-13 15:08] MED LIST: ASPI81TA2 PO; AZOP1SUS RIGHT EYE; BRIL90TA PO; CARV6.252 PO; COMB0.2S RIGHT EYE; FURO20TA PO; HYDR-3516 PO; INSU1INJ5 SQ; ISOS30TA3 PO; LEVO50TA4 PO; MULT1TAB PO; NITR1SUB3 SL; REFRDRO EACH EYE; TRAV0.00 RIGHT EYE; ZOCO20TA PO
[2016-08-13 15:17] VITALS: BP 102/49; PULSE 92; RESP 22; TEMP 98.3; O2SAT 98
[2016-08-13] MEDS ORDERED: SODIUM CHLORIDE 0.9% FLUSH 10 ML FLUSH IVF PRN (15:30)
[2016-08-13 15:31] VITALS: O2SAT 99
--- NOTE | 2016-08-13 15:44 | PD ---
HPI Chief Complaint: Syncope/Near-Syncope Time Seen by Provider: 15:25 Travel History International Travel<30 days: No Contact w/Intl Traveler<30days: No Traveled to known affect area: No History of Present Illness HPI 70yo M with PMH of CHF, cardiomyopathy s/p AICD, CAD s/p bypass, PAD, DM, CKD, HTN, hypothyroidism presents to the ED with c/o episode of syncope at 2pm today. As per EVAC, pt was a [facility] and was in a wheelchair when he was found to be unresponsive at 2pm. States he was awake and alert when they arrived but hypotensive and diaphoretic. BP was in the 80s/50s and pt received 350cc of IVF. EVAC states that pt received nitroglycerin 30 minutes prior to this episode but unsure why. Pt is AAOx3 and denies any chest pain, sob, n/v, abdominal pain, focal weakness or numbness. Pt does complain of rib pain secondary to rib fractures from CPR. Pt was recently admitted 08/02/16-08/08/16 for NSTEMI and was placed on heparin drip. Pt then went into respiratory arrest and PEA. Pt had ROSC and was discharged to [facility] facility. PFSH Past Medical History Autoimmune Disease: No Heart Rhythm Problems: Yes Cancer: No Cardiovascular Problems: Yes (Cardiac arrest, STEMI, CHF) High Cholesterol: Yes Chest Pain: Yes Congestive Heart Failure: Yes COPD: Yes Diminished Hearing: No Endocrine: Yes Genitourinary: Yes Hiatal Hernia: Yes Immune Disorder: No Musculoskeletal: Yes Psychiatric: No Respiratory: Yes Myocardial Infarction: Yes Thyroid Disease: Yes ?: Not Past Surgical History Cardiac Surgery: Yes (PACEMAKER DEFIB) Coronary Artery Bypass Graft: Yes Eye Surgery: Yes Pacemaker: Yes (AICD) Other Surgery: Yes (left toe amputation) Social History Alcohol Use: No Tobacco Use: No (QUIT 40 yrs ago) Substance Use: No Allergies-Medications (Allergen,Severity, Reaction): Coded Allergies: Iodinated Contrast Media (Verified Allergy, Unknown, 08/02/16) Sulfa (Verified Allergy, Unknown, 08/02/16) Reported Meds & Prescriptions Reported Meds & Active Scripts Active Brilinta (Ticagrelor) 90 Mg Tab 90 Mg PO BID Hydrocodone-Acetaminophen 5-325 mg Tab 1 Tab PO Q4H PRN Furosemide 20 Mg Tab 20 Mg PO DAILY Reported Nystatin Liq 100,000 unit/ml Susp 6 Ml SWISH-SWAL QID Humalog Inj (Insulin Human Lispro) 1,000 Unit/10 Ml Vial 2-10 Units SQ ACHS Max dose at bedtime:( )units; sugars < 70,(0)units; sugars 150-199,(2)units; sugars 200-249,(4)units; sugars 250-299,(7)units; sugars 300-349,(10)units; sugars more than 349,(12)units. Travatan Z Opth Drops (Travoprost) 0.004 % Soln 1 Drop RIGHT EYE HS Carvedilol 6.25 Mg Tab 6.25 Mg PO BID Zocor (Simvastatin) 20 Mg Tab 20 Mg PO HS Nitroglycerin SL (Nitroglycerin) 0.4 Mg Subl 0.4 Mg SL DIRECTED PRN ONE TABLET UNDER THE TONGUE NEEDED FOR CHEST PAIN, MAY REPEAT EVERY FIVE MINUTES FOR A TOTAL OF 3 DOSES OR CALL 911 IF NO RELIEF [facility] 50+ (Multiple Vitamins W/ Minerals) 1 Tab Tab 1 Tab PO DAILY Levothyroxine (Levothyroxine Sodium) 50 Mcg Tab 50 Mcg PO DAILY Levemir Flextouch Pen Inj (Insulin Detemir) 300 unit/3 ML Pen 40 Units SQ HS Isosorbide Mononitrate ER (Isosorbide Mononitrate) 30 Mg Adriana 30 Mg PO DAILY Azopt Opth Drops (Brinzolamide) 1% Susp 1 Drop RIGHT EYE BID Combigan Opth Drops (Brimonidine-Timolol Opth Drops) 0.2-0.5% Soln 1 Drop RIGHT EYE Q12HR Aspirin EC Low Dose (Aspirin) 81 Mg Tabec 81 Mg PO DAILY Refresh Opth Drops (Polyvinyl Alcohol-Povidone Opth Drops) 1.4-0.6% Drops 1 Drop EACH EYE TID PRN Review of Systems Except as stated in HPI: all other systems reviewed are Neg Physical Exam Narrative GEN: 70yo M in mild distress. Skin: Pale and mildly diaphoretic. HEAD: Normocephalic, atraumatic. Eyes: Surgical pupils, pt is blind. NECK: Trachea midline, no JVD. CV: S1, S2. Lungs: CTA B/l, equal breath sounds. Abd: soft, NT/ND. BACK: No midline ttp. Some skin breaks near rectum. RECTAL: +Black, tarry stool. Neuro: No focal neurologic deficits. Data Data Last Documented VS Vital Signs Date Time Temp Pulse Resp B/P Pulse Ox O2 Delivery O2 Flow Rate FiO2 08/13/16 16:36 98 22 109/50 99 Nasal Cannula 2 08/13/16:17 98.3 Orders Basic Metabolic Panel (Bmp) (08/13/16 15:29) Complete Blood Count With Diff (08/13/16 15:29) Magnesium (Mg) (08/13/16 15:29) B-Type Natriuretic Peptide (08/13/16 15:29) Ckmb (Isoenzyme) Profile (08/13/16 15:29) Troponin I (08/13/16 15:29) Act Partial Throm Time (Ptt) (08/13/16 15:29) Prothrombin Time / Inr (Pt) (08/13/16 15:29) Urinalysis - C+S If Indicated (08/13/16 15:29) Blood Glucose (08/13/16 15:29) Ecg Monitoring (08/13/16 15:29) Iv Access Insert/Monitor (08/13/16 15:29) Oximetry (08/13/16 15:29) Sodium Chloride 0.9% Flush (Ns Flush) (08/13/16 15:30) Orthostatic Vital Signs (08/13/16 15:29) Chest, Single Ap (08/13/16 ) Urine Culture (08/13/16 15:40) Ondansetron Inj (Zofran Inj) (08/13/16 16:30) Ceftriaxone Inj (Rocephin Inj) (08/13/16 16:45) Pantoprazole Inj (Protonix Inj) (08/13/16 17:00) Pantoprazole Inj (Protonix Inj) (08/13/16 17:00) Admit Order (Ed Use Only) (08/13/16 17:17) Consult Gastroenterology (08/13/16 ) Labs Laboratory Tests Test 08/13/16 15:40 White Blood Count 16.3 TH/MM3 Red Blood Count 2.96 MIL/MM3 Hemoglobin 9.4 GM/DL Hematocrit 28.9 % Mean Corpuscular Volume 97.9 FL Mean Corpuscular Hemoglobin 31.8 PG Mean Corpuscular Hemoglobin 32.5 % Concent Red Cell Distribution Width 14.7 % Platelet Count 403 TH/MM3 Mean Platelet Volume 8.8 FL Neutrophils (%) (Auto) 74.8 % Lymphocytes (%) (Auto) 9.0 % Monocytes (%) (Auto) 12.0 % Eosinophils (%) (Auto) 3.2 % Basophils (%) (Auto) 1.0 % Neutrophils # (Auto) 12.1 TH/MM3 Lymphocytes # (Auto) 1.5 TH/MM3 Monocytes # (Auto) 2.0 TH/MM3 Eosinophils # (Auto) 0.5 TH/MM3 Basophils # (Auto) 0.2 TH/MM3 CBC Comment AUTO DIFF Differential Total Cells 100 Counted Neutrophils % (Manual) 71 % Band Neutrophils % 3 % Lymphocytes % 6 % Monocytes % 11 % Eosinophils % 6 % Basophils % 1 % Neutrophils # (Manual) 12.4 TH/MM3 Metamyelocytes 1 % Myelocytes 1 % Differential Comment FINAL DIFF MANUAL Platelet Estimate HIGH Platelet Morphology Comment NORMAL Prothrombin Time 10.7 SEC Prothromb Time International 1.0 RATIO Ratio Activated Partial 31.3 SEC Thromboplast Time Urine Color LIGHT-YELLOW Urine Turbidity HAZY Urine pH 5.0 Urine Specific [place] 1.013 Urine Protein TRACE mg/dL Urine Glucose (UA) NEG mg/dL Urine Ketones NEG mg/dL Urine Occult Blood TRACE Urine Nitrite NEG Urine Bilirubin NEG Urine Urobilinogen LESS THAN 2.0 MG/DL Urine Leukocyte Esterase LARGE Urine RBC 8 /hpf Urine WBC 45 /hpf Urine Squamous Epithelial <1 /hpf Cells Urine Bacteria FEW /hpf Urine Mucus FEW /lpf Urine Yeast (Budding) MOD Microscopic Urinalysis Comment CULTURE INDICATED Sodium Level 135 MEQ/L Potassium Level 5.3 MEQ/L Chloride Level 99 MEQ/L Carbon Dioxide Level 25.5 MEQ/L Anion Gap 11 MEQ/L Blood Urea Nitrogen 160 MG/DL Creatinine 2.70 MG/DL Estimat Glomerular Filtration 23 ML/MIN Rate Random Glucose 178 MG/DL Calcium Level 8.4 MG/DL Magnesium Level 2.8 MG/DL Total Creatine Kinase 26 U/L Troponin I 0.05 NG/ML B-Type Natriuretic Peptide 224 PG/ML MDM Medical Decision Making Medical Screen Exam Complete: Yes Emergency Medical Condition: Yes Interpretation(s) EKG: Paced rhythm at 92bpm. LAD. No concordance. Differential Diagnosis Cardiac arrhythmia vs. vasovagal syncope vs. GI bleed Narrative Course 70yo M with episode of syncope. Labs reviewed, leukocytosis at 16.3. Hemoglobin 9.4 which is significantly decreased from last time so rectal exam was completed. Rectal exam showed black tarry stool and hemaprompt positive. Pt placed on protonix drip after bolus. GI consult placed. Blood pressure was been stable with systolic in the low 100s. Type and screen ordered but decided not to transfuse yet give pt's history of CHF and stable vital signs. However, will need to trend H/H and transfuse as needed. BUN markedly elevated which is consistent with GI bleed. K mildly elevated at 5.3, will trend. Creatinine elevated from prior as well so pt has acute on chronic kidney injury. UA positive for leukocyte, pt given ceftriaxone 1gm IV. Troponin 0.05. Discussed with Dr. Morse and accepted to her service. Critical Care Narrative Aggregate critical care time was 45 minutes. Time to perform other separately billable procedures was not included in the critical care time. My time did not include minutes spent treating any other patients simultaneously or on activities that did not directly contribute to the patient's treatment. The services I provided to this patient were to treat and/or prevent clinically significant deterioration that could result in: cardiovascular collapse or . I provided critical care services requiring my management, as noted below: Chart data review, documentation time, medication orders and management, vital sign assessments/reviewing monitor data, ordering and reviewing lab tests, ordering and interpreting/reviewing x-rays and diagnostic studies, care of the patient and discussion of the patient with the admitting physicians. Diagnosis Primary Impression: GI bleed Qualified Code: K92.1 - Gastrointestinal hemorrhage with melena Additional Impression: Syncope Qualified Code: R55 - Syncope, unspecified syncope type Admitting Information Admitting Physician Requests: Admit Delores Horner DO Aug 13, 2016 15:44
[2016-08-13 15:57] LABS: AUTOMATED NEUTROPHIL # 12.1 TH/MM3 (1.8-7.7); BASOPHIL # 0.2 TH/MM3 (0-0.2); EOSINOPHIL # 0.5 TH/MM3 (0-0.4); EOSINOPHIL % 3.2 % (0.0-4.0); HEMATOCRIT 28.9 % (39.0-51.0); LYMPHOCYTE # 1.5 TH/MM3 (1.0-4.8); MEAN CELL VOLUME 97.9 FL (80.0-100.0); MEAN CORPUSCULAR HEMOGLOBIN 31.8 PG (27.0-34.0); MEAN CORPUSCULAR HGB CONC 32.5 % (32.0-36.0); NEUT % 74.8 % (16.0-70.0); PLATELET COUNT 403 TH/MM3 (150-450); RED BLOOD COUNT 2.96 MIL/MM3 (4.50-5.90); RED CELL DISTRIBUTION WIDTH 14.7 % (11.6-17.2); WHITE BLOOD COUNT 16.3 TH/MM3 (4.0-11.0)
[2016-08-13 16:01] LABS: HEMO FLAGS AUTO DIFF
[2016-08-13 16:02] LABS: BACTERIA, URINE FEW /hpf; BLOOD, URINE TRACE (NEG); COMMENT (UR) CULTURE INDICATED; CULTURE IF INDICATED CULTURE INDICATED; GLUCOSE,URINE NEG (NEG); KETONE, URINE NEG (NEG); MUCUS URINE FEW /lpf (OCC); NITRITE,URINE NEG (NEG); SQUAMOUS EPITHELIAL CELL URINE <1 /hpf (0-5); URINE COLOR LIGHT-YELLOW (YELLW/STRAW)
[2016-08-13 16:06] LABS: APTT (PATIENT) 31.3 SEC (24.3-30.1); PROTHROMBIN TIME - PATIENT 10.7 SEC (9.8-11.6)
[2016-08-13 16:18] LABS: BICARBONATE 25.5 MEQ/L (21.0-32.0); MAGNESIUM 2.8 MG/DL (1.5-2.5); POTASSIUM 5.3 MEQ/L (3.5-5.1)
[2016-08-13] MEDS ORDERED: ONDANSETRON HCL 4 MG/2 ML VIAL IV PUSH ONE (16:30)
[2016-08-13 16:36] VITALS: BP 109/50; PULSE 98; RESP 22; O2SAT 99
[2016-08-13] MEDS ORDERED: HUMALOG SQ (16:39)
[2016-08-13] MEDS ORDERED: NYST1000 SWISH-SWAL (16:39)
[2016-08-13] MEDS ORDERED: cefTRIAXone INJ 1,000 MG in SODIUM CHLORIDE 0.9% INJ 100 ML IV ONE (16:45)
--- NOTE | 2016-08-13 16:58 | RADRPT ---
EXAM DATE/TIME: 08/13/2016 15:37 [facility] COMPARISON: CHEST SINGLE AP, August 05, 2016, 4:19. INDICATIONS : Syncopal episode today. Patient very confused. MEDICAL HISTORY : None. SURGICAL HISTORY : Pacemaker. CABG ENCOUNTER: Initial ACUITY: 1 day PAIN SCORE: 0/10 LOCATION: Bilateral chest FINDINGS: Pacemaker device is noted with control pack over the left chest. There has been interval extubation a nd removal of nasogastric tube. There has been near complete clearance of parenchymal edema. Cardiac contours are satisfactory for technique and projection. CONCLUSION: Interval removal of NG tube and ET tube. Near-complete clearance of the lungs. Scott Leblanc MD on August 13, 2016 at 16:46 Board Certified Radiologist. This report was verified electronically.
[2016-08-13] MEDS ORDERED: PANTOPRAZOLE INJ 80 MG in SODIUM CHLORIDE 0.9% INJ 35 ML IV ONE (17:00)
[2016-08-13] MEDS: PANTOPRAZOLE INJ 80 MG in SODIUM CHLORIDE 0.9% INJ 100 ML IV SCH ×2 (17:00→22:41)
[2016-08-13 17:04] LABS: BANDS 3 % (0-6); BASOPHILS 1 % (0-2); EOSINOPHILS 6 % (0-4); METAMYELOCYTES 1 % (0-1); MYELOCYTES 1 % (0-0); NEUTROPHIL # MANUAL DIFF 12.4 TH/MM3 (1.8-7.7); PLATELET ESTIMATE SMEAR HIGH (NORMAL); PLATELET MORPHOLOGY NORMAL (NORMAL); POLYS (SEG NEUTROPHILS) 71 % (16-70); WBC DIFF SAMPLE 100
[2016-08-13 17:05] LABS: SCAN/DIFF FINAL DIFF MANUAL
[2016-08-13 17:47] VITALS: BP_SYST 104; BP_DIAS 42; BP_DIAS 45; PULSE 95; RESP 20; O2SAT 98
[2016-08-13 18:31] VITALS: BP 102/50; PULSE 96; RESP 20; O2SAT 93
[2016-08-13] MEDS ORDERED: SODIUM CHLORIDE 0.9% FLUSH 10 ML FLUSH IV FLUSH PRN (19:00)
[2016-08-13] MEDS ORDERED: ACETAMINOPHEN 325 MG TAB PO PRN (19:00)
[2016-08-13] MEDS ORDERED: MAGNESIUM HYDROXIDE SUSP 30 ML CUP PO PRN (19:00)
--- NOTE | 2016-08-13 21:21 | RADRPT ---
EXAM DATE/TIME: 08/13/2016 19:57 [facility] COMPARISON: No previous studies available for comparison. INDICATIONS : Syncope. MEDICAL HISTORY : Congestive heart failure. Myocardial infarction. Hypercholesterolemia. Thyroid disease. Cardiac arres t. Chest pain. COPD. Dyspnea. Hiatal hernia. Renal failure. Arthritis. Diabetes. SURGICAL HISTORY : Pacemaker. CABG. Left toe amputation. ENCOUNTER: Initial ACUITY: 4-6 days PAIN SCORE: 0/10 LOCATION: Bilateral neck PEAK SYSTOLIC VELOCITIES (cm/sec): ICA/CCA RATIO: Right: 0.7 Left: 1.2 ICA: Right: 66 Left: 102 CCA: Right: 93 Left: 85 ECA: Right: 60 Left: 76 VERTEBRAL: Right: 36 antegrade Left: 51 antegrade Elevated flow velocities and ICA/CCA ratios have been found to correlate with increased degrees of vessel stenosis, calculated as percentage of diameter relative to a normal segment of distal ICA/CCA FINDINGS: RIGHT CAROTID: Mild plaque formation in the common and internal carotid arteries. No significant stenosis is visual ized. The waveforms are within normal limits. LEFT CAROTID: Mild plaque formation, and internal carotid arteries. No significant stenosis is visualized. The wa veforms are within normal limits. VERTEBRAL ARTERIES: Antegrade flow is seen in both vertebral arteries. CONCLUSION: Mild bilateral carotid plaque with hemodynamic profile characteristic of less than 50% stenosis. Nando Reeves MD on August 13, 2016 at 21:18 Board Certified Radiologist. This report was verified electronically.
[2016-08-13] MEDS: SODIUM CHLOR 0.9% 1000 ML INJ 1,000 ML IV SCH (22:41)
[2016-08-13 23:30] VITALS: BP 128/48; PULSE 107; TEMP 98.5; O2SAT 97
[2016-08-13] MEDS ORDERED: ACETAMINOPHEN 325 MG TAB PO ONE (23:45)
[2016-08-13] MEDS: ONDANSETRON HCL 4 MG/2 ML VIAL IVP PRN (23:46)
[2016-08-14] VITALS (26 sets, daily range): BP systolic 114–131; BP diastolic 41–53; PULSE 97–108; RESP 16–20; TEMP 96.1–98.5; O2SAT 96–100
--- NOTE | 2016-08-14 00:36 | HHI.HP ---
[facility] No Primary Care Physician Admission Diagnosis GI bleed, syncope Diagnoses: (1) Syncope Chief Complaint: Passed out at [facility] Travel History International Travel<30 Days: No Contact w/Intl Traveler <30 Da: No Traveled to Known Affected Are: No History of Present Illness Mr. Damico is a 70-year-old male with a history of hypothyroidism, diabetes mellitus, COPD, coronary artery disease, ischemic cardiomyopathy with ejection fraction of 25% on echocardiogram dated 08/03/2016, chronic kidney disease, congestive heart failure, STEMI, and recent PA cardiac arrest on 08/04/2016 who presented to the emergency room on 08/13/2016 after experiencing a syncopal episode at [facility]. The patient is seen in his hospital room. He appears confused and states that he is at [employer]. He is aware that the month is August but believes that the date is the . He is unable to recall any specific information about why he is here and at one point in time seems to think that he is back in [place] where he recently relocated to [place] from. Therefore, most of his history is obtained from multiple family members who are at the bedside. The family reports that the patient is been complaining of rib pain since CPR was performed on him after cardiac arrest here at the hospital during his admission (states August 02, 2016 through August 08, 2016). They believe the patient was reporting this pain and that staff at the [facility] facility thought he was having angina and gave him nitroglycerin. They state that afterward, he turned fields, his eyes rolled up in his head, and he passed out. The patient denies pain during his interview. Denies any history of stomach ulcers or gi bleed; has never had an endoscopy or colonoscopy. He has had urinary catheter since hospital discharge on August 08, 2016. 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 Past Surgical History Cataract surgery Toe amputation CABG Reported Medications Reported Meds & Active Scripts Active Brilinta (Ticagrelor) 90 Mg Tab 90 Mg PO BID Hydrocodone-Acetaminophen 5-325 mg Tab 1 Tab PO Q4H PRN Furosemide 20 Mg Tab 20 Mg PO DAILY Reported Nystatin Liq 100,000 unit/ml Susp 6 Ml SWISH-SWAL QID Humalog Inj (Insulin Human Lispro) 1,000 Unit/10 Ml Vial 2-10 Units SQ ACHS Max dose at bedtime:( )units; sugars < 70,(0)units; sugars 150-199,(2)units; sugars 200-249,(4)units; sugars 250-299,(7)units; sugars 300-349,(10)units; sugars more than 349,(12)units. Travatan Z Opth Drops (Travoprost) 0.004 % Soln 1 Drop RIGHT EYE HS Carvedilol 6.25 Mg Tab 6.25 Mg PO BID Zocor (Simvastatin) 20 Mg Tab 20 Mg PO HS Nitroglycerin SL (Nitroglycerin) 0.4 Mg Subl 0.4 Mg SL DIRECTED PRN ONE TABLET UNDER THE TONGUE NEEDED FOR CHEST PAIN, MAY REPEAT EVERY FIVE MINUTES FOR A TOTAL OF 3 DOSES OR CALL 911 IF NO RELIEF [facility] [place] Adult 50+ (Multiple Vitamins W/ Minerals) 1 Tab Tab 1 Tab PO DAILY Levothyroxine (Levothyroxine Sodium) 50 Mcg Tab 50 Mcg PO DAILY Levemir Flextouch Pen Inj (Insulin Detemir) 300 unit/3 ML Pen 40 Units SQ HS Isosorbide Mononitrate ER (Isosorbide Mononitrate) 30 Mg Adriana 30 Mg PO DAILY Azopt Opth Drops (Brinzolamide) 1% Susp 1 Drop RIGHT EYE BID Combigan Opth Drops (Brimonidine-Timolol Opth Drops) 0.2-0.5% Soln 1 Drop RIGHT EYE Q12HR Aspirin EC Low Dose (Aspirin) 81 Mg Tabec 81 Mg PO DAILY Refresh Opth Drops (Polyvinyl Alcohol-Povidone Opth Drops) 1.4-0.6% Drops 1 Drop EACH EYE TID PRN . Allergies: Coded Allergies: Iodinated Contrast Media (Verified Allergy, Unknown, 08/02/16) Sulfa (Verified Allergy, Unknown, 08/02/16) Active Ordered Medications Current Medications Sodium Chloride (NS Flush) 2 ml UNSCH PRN IVF FLUSH AFTER USING IV ACCESS Last administered on 08/13/16 16:26; Start 08/13/16 at 15:30; Stop 08/13/16 at 19:24; Status DC Ondansetron HCl 4 mg 4 mg ONCE ONCE IV PUSH Last administered on 08/13/16 16: 26; Start 08/13/16 at 16:30; Stop 08/13/16 at 16:31; Status DC Ceftriaxone Sodium 1000 mg/ Sodium Chloride 100 ml @ 200 mls/hr ONCE ONCE IV Last administered on 08/13/16 17:42; Start 08/13/16 at 16:45; Stop 08/13/16 at 17: 14; Status DC Pantoprazole Sodium 80 mg/ Sodium Chloride 35 ml @ 420 mls/hr ONCE ONCE IV Last administered on 08/13/16 17:00; Start 08/13/16 at 17:00; Stop 08/13/16 at 17: 04; Status DC Pantoprazole Sodium 80 mg/ Sodium Chloride 100 ml @ 10 mls/hr Q10H IV Last administered on 08/13/16 22:41; Start 08/13/16 at 17:00 Sodium Chloride (NS 1000 ml Inj) 1,000 ml @ 50 mls/hr Q20H IV Last administered on 08/13/16 22:41; Start 08/13/16 at 20:00 Sodium Chloride (NS Flush) 2 ml UNSCH PRN IV FLUSH FLUSH AFTER USING IV ACCESS ; Start 08/13/16 at 19:00 Sodium Chloride (NS Flush) 2 ml BID IV FLUSH ; Start 08/13/16 at 21:00 Acetaminophen (Tylenol) 650 mg Q4H PRN PO TEMP > 100.4 Last administered on 08/14 00:19; Start 08/13/16 at 19:00 Ondansetron HCl (Zofran Inj) 4 mg Q6H PRN IVP NAUSEA OR VOMITING Last administered on 08/13/16 23:46; Start 08/13/16 at 19:00 Magnesium Hydroxide (Milk Of Magnesia Liq) 30 ml Q12H PRN PO CONSTIPATION; Start 08/13/16 at 19:00 Acetaminophen (Tylenol) 650 mg ONCE ONCE PO ; Start 08/13/16 at 23:45; Stop 08/13 at 23:51; Status DC . Family History family history of thyroid disease . Social History No recent history of smoking or drinking alcohol Physical Exam Vital Signs Vital Signs Date Time Temp Pulse Resp B/P Pulse Ox O2 Delivery O2 Flow Rate FiO2 08/13/16 18:31 96 20 102/50 93 Nasal Cannula 2 08/13/16 17:47 95 20 104/45 98 Nasal Cannula 2 08/13/16 16:36 98 22 109/50 99 Nasal Cannula 2 08/13/16 15:31 99 Nasal Cannula 2 08/13/16 15:17 98.3 92 22 102/49 98 Physical Exam GENERAL: This is a pale appearing, confused elderly male patient, in no apparent distress. SKIN: No rashes, ecchymoses or lesions. Cool and dry. Appears pale. HEAD: Atraumatic. Normocephalic. EYES: No scleral icterus. No injection or drainage. ENT: Nose without bleeding, purulent drainage. Mucous membranes appear dry. NECK: Trachea midline. No JVD or lymphadenopathy. CARDIOVASCULAR: Regular rate and rhythm without murmurs, gallops, or rubs. RESPIRATORY: Clear to auscultation. Breath sounds equal bilaterally. No wheezes , rales, or rhonchi. GASTROINTESTINAL: Abdomen soft, non-tender, nondistended. No guarding. MUSCULOSKELETAL: Extremities without clubbing, cyanosis, or edema. No calf tenderness. NEUROLOGICAL: Awake and alert. Motor and sensory grossly within normal limits. Normal speech. . Laboratory Laboratory Tests Test 08/13/16 15:40 White Blood Count 16.3 Red Blood Count 2.96 Hemoglobin 9.4 Hematocrit 28.9 Mean Corpuscular Volume 97.9 Mean Corpuscular Hemoglobin 31.8 Mean Corpuscular Hemoglobin 32.5 Concent Red Cell Distribution Width 14.7 Platelet Count 403 Mean Platelet Volume 8.8 Neutrophils (%) (Auto) 74.8 Lymphocytes (%) (Auto) 9.0 Monocytes (%) (Auto) 12.0 Eosinophils (%) (Auto) 3.2 Basophils (%) (Auto) 1.0 Neutrophils # (Auto) 12.1 Lymphocytes # (Auto) 1.5 Monocytes # (Auto) 2.0 Eosinophils # (Auto) 0.5 Basophils # (Auto) 0.2 CBC Comment AUTO DIFF Differential Total Cells 100 Counted Neutrophils % (Manual) 71 Band Neutrophils % 3 Lymphocytes % 6 Monocytes % 11 Eosinophils % 6 Basophils % 1 Neutrophils # (Manual) 12.4 Metamyelocytes 1 Myelocytes 1 Differential Comment FINAL DIFF MANUAL Platelet Estimate HIGH Platelet Morphology Comment NORMAL Prothrombin Time 10.7 Prothromb Time International 1.0 Ratio Activated Partial 31.3 Thromboplast Time Urine Color LIGHT-YELLOW Urine Turbidity HAZY Urine pH 5.0 Urine Specific [place] 1.013 Urine Protein TRACE Urine Glucose (UA) NEG Urine Ketones NEG Urine Occult Blood TRACE Urine Nitrite NEG Urine Bilirubin NEG Urine Urobilinogen LESS THAN 2.0 Urine Leukocyte Esterase LARGE Urine RBC 8 Urine WBC 45 Urine Squamous Epithelial <1 Cells Urine Bacteria FEW Urine Mucus FEW Urine Yeast (Budding) MOD Microscopic Urinalysis Comment CULTURE INDICATED Sodium Level 135 Potassium Level 5.3 Chloride Level 99 Carbon Dioxide Level 25.5 Anion Gap 11 Blood Urea Nitrogen 160 Creatinine 2.70 Estimat Glomerular Filtration 23 Rate Random Glucose 178 Calcium Level 8.4 Magnesium Level 2.8 Total Creatine Kinase 26 Troponin I 0.05 B-Type Natriuretic Peptide 224 Date/Time Procedure Status Source Growth 08/13/16 15:40 Urine Culture Worksheet Urine Random Urine Pending Result Diagram: 08/13/16 1540 08/13/16 1540 Imaging Last Impressions Chest X-Ray 08/13/16 0000 Signed Impressions: Service Date/Time: Saturday, August 13, 2016 15:37 - CONCLUSION: Interval removal of NG tube and ET tube. Near-complete clearance of the lungs. Scott Leblanc MD Carotid Artery Ultrasound 08/13/16 0000 Signed Impressions: Service Date/Time: Saturday, August 13, 2016 19:57 - CONCLUSION: Mild bilateral carotid plaque with hemodynamic profile characteristic of less than 50%% stenosis. Nando Reeves MD Assessment and Plan Problem List: (1) GI bleed ICD Code: K92.2 Status: Acute (2) Syncope ICD Code: R55 Status: Acute Assessment and Plan Mr. Damico is a 70-year-old male who presented to the emergency room on 08/13/2016 after experiencing a syncopal episode at [facility]. GI bleed with syncopal episode - Initial hemoglobin 9.4 - will recheck H&H stat and transfuse if indicated - Consult gastroenterology to evaluate for GI bleed - Carotid ultrasound performed showing mild bilateral carotid plaque with hemodynamic profile characteristic of less than 50% stenosis - Continuous cardiac telemetry - Monitor vital signs every 4 hours - Hold antiplatelets and blood pressure medications for now Recent PEA cardiac arrest and history of congestive heart failure now here with GI bleed on Brilinta and aspirin - Consult cardiology - patient saw Dr. Love during last hospitalization - ejection fraction of 25% on echocardiogram dated 08/03/2016 - cautious IVF hydration - monitor strict I and Os Generalized Debility following last hospitalization - consult PT and OT to prevent further weakness/debility Type 2 diabetes mellitus - Accu-Cheks before meals and at bedtime with low-dose sliding scale NovoLog coverage - Hypoglycemia treatment protocol ordered - Monitor trends and blood glucose and adjust treatments as indicated Acute on chronic renal failure likely secondary to dehydration and decreased perfusion related to anemia and GI bleed - BUN 186, creatinine 2.67, estimated GFR 24 - Gentle IV fluid hydration with normal saline at 50 cc per hour - avoid nephrotoxins - recheck BMP and follow trends in renal indices DVT prophylaxis - SCDs Written by Zeynep Lewis, acting as scribe for Dr. Stovall on 08/14/16 at 00:36. patient was seen and examined today. 70 y/o male with recent NSTEMI, on aspirin and Brilinta who was brought to ER with syncope and GI bleed. will continue with gentle IV hydration. monitor the H/H closely and transfuse as needed.will continue to monitor the renal function. hold antiplatelets and BP meds for now. GI and cardiology consulted. Discussed Condition With ER physician, RN, multiple family members at the bedside . Physician Certification 2 Midnight Certification Type: Admission for Inpatient Services Order for Inpatient Services The services are ordered in accordance with Medicare regulations or non- Medicare payer requirements, as applicable. In the case of services not specified as inpatient-only, they are appropriately provided as inpatient services in accordance with the 2-midnight benchmark. Estimated LOS (days): 3 days is the estimated time the patient will need to remain in the hospital, assuming treatment plan goals are met and no additional complications. Post-Hospital Plan: Not yet determined Problem Qualifiers (1) Syncope: Qualified Code: R55 - Syncope, unspecified syncope type (2) GI bleed: Qualified Code: K92.1 - Gastrointestinal hemorrhage with melena Zeynep Lewis Aug 14, 2016 00:36 Danielle Stovall MD Aug 14, 2016 00:53
[2016-08-14] MEDS ORDERED: POLYVINYL ALC-POVIDONE 1.4/0.6% PF OPTH SOLN 0.4 ML 30 CT EACH EYE PRN (01:00)
[2016-08-14] MEDS ORDERED: DEXTROSE 50% IN WATER 50 ML VIAL(D50) IV PUSH PRN (01:00)
[2016-08-14] MEDS ORDERED: GLUCAGON 1 MG/ML VIAL OTHER PRN (01:00)
[2016-08-14 01:40] LABS: REVIEW FLAG FINAL
[2016-08-14 02:09] LABS: ALT (GPT) 12 U/L (12-78); ANION GAP 9 MEQ/L (5-15); AST (GOT) 10 U/L (15-37); BICARBONATE 24.7 MEQ/L (21.0-32.0); CHLORIDE 102 MEQ/L (98-107); GLOMERULAR FILTRATION RATE 24 ML/MIN (>89); POTASSIUM 5.3 MEQ/L (3.5-5.1); SODIUM (NA) 136 MEQ/L (136-145)
[2016-08-14 02:11] LABS: ALKALINE PHOSPHATASE 43 U/L (45-117); BLOOD UREA NITROGEN 186 MG/DL (7-18); TOTAL BILIRUBIN ADULT 0.2 MG/DL (0.2-1.0)
[2016-08-14] MEDS ORDERED: FUROSEMIDE 20 MG/2 ML VIAL IV PUSH PRN (03:00)
[2016-08-14] MEDS: INSULIN ASPART SUPPLEMENTAL SCALE SQ SCH ×4 (07:00→21:00)
[2016-08-14] MEDS: ONDANSETRON HCL 4 MG/2 ML VIAL IVP PRN (07:28)
[2016-08-14] MEDS: SODIUM CHLORIDE 0.9% FLUSH 10 ML FLUSH IV FLUSH SCH ×2 (08:15→21:00)
[2016-08-14] MEDS ORDERED: BRIMONIDINE TIMOLOL OPTH RIGHT EYE SCH (09:00)
[2016-08-14] MEDS ORDERED: BRINZOLAMIDE OPTH RIGHT EYE SCH (09:00)
--- NOTE | 2016-08-14 09:50 | EKG ---
Date Performed: 08/13/2016 Time Performed: 18:55:17 PTAGE: 70 years EKG: ELECTRONIC VENTRICULAR PACEMAKER ABNORMAL RHYTHM ECG NO PREVIOUS TRACING DOCTOR: Masood Coleman Interpretating Date/Time 08/14/2016 09:49:06
[2016-08-14] MEDS: PANTOPRAZOLE INJ 80 MG in SODIUM CHLORIDE 0.9% INJ 100 ML IV SCH ×2 (10:04→23:00)
--- NOTE | 2016-08-14 10:14 | EKG ---
Date Performed: 08/13/2016 Time Performed: 15:25:11 PTAGE: 70 years EKG: ELECTRONIC VENTRICULAR PACEMAKER ABNORMAL RHYTHM ECG INTERPRETATION BASED ON A DEFAULT AGE OF 40 YEARS NO PREVIOUS TRACING DOCTOR: Masood Coleman Interpretating Date/Time 08/14/2016 10:13:45
[2016-08-14] MEDS: SODIUM CHLOR 0.9% 1000 ML INJ 1,000 ML IV SCH ×2 (13:29→23:36)
--- NOTE | 2016-08-14 15:24 | PD.CONS ---
HPI History of Present Illness This is a 70 year old [gentleman] who came to the hospital after an episode of syncope. He is confused and non-contributory for the most part but per his nurse has had 4 dark tarry stools while in the hospital. He has also been complaining of nausea. He denies vomiting, no abdominal pain, blood in stool. 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 Past Surgical History Cataract surgery Toe amputation CABG (Keena Madsen) Coded Allergies: Iodinated Contrast Media (Verified Allergy, Unknown, 08/02/16) Sulfa (Verified Allergy, Unknown, 08/02/16) Medications Current Medications Medications (Trade) Dose Ordered Sig/Jacek Route PRN Reason Start Time Stop Time Status Last Admin Dose Admin Pantoprazole Sodium 80 mg/ Sodium Chloride 100 ml @ 10 mls/hr Q10H IV 08/13/16 17:00 08/14/16 10:04 Sodium Chloride (NS 1000 ml Inj) 1,000 ml @ 60 mls/hr [id number] IV 08/13/16 20:00 08/14/16 13:29 Sodium Chloride (NS Flush) 2 ml UNSCH PRN IV FLUSH FLUSH AFTER USING IV ACCESS 08/13/16 19:00 Sodium Chloride (NS Flush) 2 ml BID IV FLUSH 08/13/16 21:00 08/13/16 04:00 Acetaminophen (Tylenol) 650 mg Q4H PRN PO TEMP > 100.4 08/13/16 19:00 Ondansetron HCl (Zofran Inj) 4 mg Q6H PRN IVP NAUSEA OR VOMITING 08/13/16 19:00 08/14/16 07:28 Magnesium Hydroxide (Milk Of Magnesia Liq) 30 ml Q12H PRN PO CONSTIPATION 08/13/16 19:00 Polyvinyl Alcohol/ Povidone (Refresh Classic 1.4-0.6% Pf Opth Soln) 1 drop TID PRN EACH EYE DRY EYE 08/14/16 01:00 Patient Own Medication PT OWN MED Brimonidine-Timolol Optmyrna Ramirez. Q12HR RIGHT EYE Glaucoma 08/14/16 09:00 Hold Patient Own Medication PT OWN MED Brinzolamide Opth .. BID RIGHT EYE 08/14/16 09:00 Hold Latanoprost (Xalatan 0.005% Opth Soln) 1 DROP IN RIGHT EYE HS RIGHT EYE 08/14/16 21:00 Dextrose (D50w (Vial) Inj) 25 ml UNSCH PRN IV PUSH HYPOGLYCEMIA-SEE COMMENTS 08/14/16 01:00 Glucagon (Glucagon Inj) 1 mg UNSCH PRN OTHER HYPOGLYCEMIA-SEE COMMENTS 08/14/16 01:00 Family History family history of thyroid disease . Social History No recent history of smoking or drinking alcohol (Keena Madsen) Review of Systems Gastrointestinal: COMPLAINS OF: Black stools, Nausea, DENIES: Abdominal pain, Bloody stools, Vomiting (pt mostly non-contributory) Psychiatric: COMPLAINS OF: Confusion (eKena Madsen) GI Exam Vitals I&O Vital Signs Date Time Temp Pulse Resp B/P Pulse Ox O2 Delivery O2 Flow Rate FiO2 08/14/16 14:00 107 08/14/16 13:00 101 08/14/16 12:00 100 08/14/16 11:00 97.7 101 20 124/48 100 08/14/16 11:00 103 08/14/16 10:00 102 08/14/16 09:38 96 Nasal Cannula 2.00 08/14/16 09:00 102 08/14/16 08:00 100 08/14/16 08:00 97.6 101 16 131/48 98 08/14/16 07:00 102 08/14/16 06:00 100 08/14/16 05:00 106 08/14/16 04:00 99 08/14/16 03:50 98.5 104 18 127/44 100 08/14/16 03:00 102 08/14/16 03:00 98.5 104 18 127/44 100 08/14/16 02:00 106 08/14/16 01:00 108 08/14/16 00:00 105 08/13/16 23:30 98.5 107 128/48 97 08/13/16 18:31 96 20 102/50 93 Nasal Cannula 2 08/13/16 17:47 95 20 104/45 98 Nasal Cannula 2 08/13/16 16:36 98 22 109/50 99 Nasal Cannula 2 08/13/16 15:31 99 Nasal Cannula 2 08/13/16 15:17 98.3 92 22 102/49 98 I/O 08/13/16 08/13/16 08/13/16 08/14/16 08/14/16 08/14/16 07:00 15:00 23:00 07:00 15:00 23:00 Intake Total 240 ml Output Total 1350 ml Balance -1110 ml Intake Oral 240 ml Output Urine Total 1350 ml # Bowel Movements 1 Imaging Last Impressions Chest X-Ray 08/13/16 0000 Signed Impressions: Service Date/Time: Saturday, August 13, 2016 15:37 - CONCLUSION: Interval removal of NG tube and ET tube. Near-complete clearance of the lungs. Scott Leblanc MD Carotid Artery Ultrasound 08/13/16 0000 Signed Impressions: Service Date/Time: Saturday, August 13, 2016 19:57 - CONCLUSION: Mild bilateral carotid plaque with hemodynamic profile characteristic of less than 50%% stenosis. Nando Reeves MD Laboratory Test 08/13/16 08/14/16 08/14/16 08/14/16 15:40 01:00 01:05 02:52 White Blood Count 16.3 TH/MM3 Red Blood Count 2.96 MIL/MM3 Hemoglobin 9.4 GM/DL 8.1 GM/DL Hematocrit 28.9 % 24.0 % Mean Corpuscular Volume 97.9 FL Mean Corpuscular Hemoglobin 31.8 PG Mean Corpuscular Hemoglobin 32.5 % Concent Red Cell Distribution Width 14.7 % Platelet Count 403 TH/MM3 Mean Platelet Volume 8.8 FL Neutrophils (%) (Auto) 74.8 % Lymphocytes (%) (Auto) 9.0 % Monocytes (%) (Auto) 12.0 % Eosinophils (%) (Auto) 3.2 % Basophils (%) (Auto) 1.0 % Neutrophils # (Auto) 12.1 TH/MM3 Lymphocytes # (Auto) 1.5 TH/MM3 Monocytes # (Auto) 2.0 TH/MM3 Eosinophils # (Auto) 0.5 TH/MM3 Basophils # (Auto) 0.2 TH/MM3 CBC Comment AUTO DIFF Differential Total Cells 100 Counted Neutrophils % (Manual) 71 % Band Neutrophils % 3 % Lymphocytes % 6 % Monocytes % 11 % Eosinophils % 6 % Basophils % 1 % Neutrophils # (Manual) 12.4 TH/MM3 Metamyelocytes 1 % Myelocytes 1 % Differential Comment FINAL DIFF MANUAL Platelet Estimate HIGH Platelet Morphology Comment NORMAL Prothrombin Time 10.7 SEC Prothromb Time International 1.0 RATIO Ratio Activated Partial 31.3 SEC Thromboplast Time Urine Color LIGHT-YELLOW Urine Turbidity HAZY Urine pH 5.0 Urine Specific [place] 1.013 Urine Protein TRACE mg/dL Urine Glucose (UA) NEG mg/dL Urine Ketones NEG mg/dL Urine Occult Blood TRACE Urine Nitrite NEG Urine Bilirubin NEG Urine Urobilinogen LESS THAN 2.0 MG/DL Urine Leukocyte Esterase LARGE Urine RBC 8 /hpf Urine WBC 45 /hpf Urine Squamous Epithelial <1 /hpf Cells Urine Bacteria FEW /hpf Urine Mucus FEW /lpf Urine Yeast (Budding) MOD Microscopic Urinalysis Comment CULTURE INDICATED Sodium Level 135 MEQ/L 136 MEQ/L Potassium Level 5.3 MEQ/L 5.3 MEQ/L Chloride Level 99 MEQ/L 102 MEQ/L Carbon Dioxide Level 25.5 MEQ/L 24.7 MEQ/L Anion Gap 11 MEQ/L 9 MEQ/L Blood Urea Nitrogen 160 MG/DL 186 MG/DL Creatinine 2.70 MG/DL 2.67 MG/DL Estimat Glomerular Filtration 23 ML/MIN 24 ML/MIN Rate Random Glucose 178 MG/DL 208 MG/DL Calcium Level 8.4 MG/DL 8.5 MG/DL Magnesium Level 2.8 MG/DL Total Creatine Kinase 26 U/L Troponin I 0.05 NG/ML B-Type Natriuretic Peptide 224 PG/ML Blood Type O POSITIVE O POSITIVE O POSITIVE Antibody Screen NEGATIVE Blood Bank Comment Total Bilirubin 0.2 MG/DL Aspartate Amino Transf 10 U/L (AST/SGOT) Alanine Aminotransferase 12 U/L (ALT/SGPT) Alkaline Phosphatase 43 U/L Total Protein 6.2 GM/DL Albumin 2.0 GM/DL Crossmatch Leukocyte-Reduced Red Blood Cells Date/Time Procedure Status Source Growth 08/13/16 15:40 Urine Culture - Final Complete Urine Random Urine 50-100,000 CFU/ML MIXED GRAM POSITIVE... Physical Examination HEENT: EOMI; normocephalic; atraumatic; no jaundice. NECK: Neck is supple, no JVD CHEST: Chest is clear to auscultation and percussion. CARDIAC: Regular rate and rhythm with no murmur gallop or rubs. ABDOMEN: Soft, nondistended, nontender; no hepatosplenomegaly; bowel sounds are present in all four quadrants. EXTREMITIES: No clubbing, cyanosis, or edema. SKIN: Normal; no rash; pale. 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 (Keena Madsen) Assessment and Plan Plan ASSESSMENT: - possible upper GI bleed, black tarry stools x 4 today per RN. Pt also has nausea. No hematemesis or richard blood in stool. Attempted to discuss diagnostic EGD and colonoscopy with POC Nadege Damico, both provided phone numbers, at [phone] but no answer or voicemail. - Anemia, Hgb 9.4 yesterday and 8.1 today. PLAN: - EGD - obtain consents - NPO after midnight - continue to monitor HH - transfuse as needed - zofran if needed for nausea This patient was examined by myself and Dr. Maria and this note is written on his behalf (Keena Madsen) Physician Comments Seen and examined with NAHUM, discussed with family at bedside. NOt A and O. No active bleeding reported by nurse. EGD planned for tomorrow. Monitor labs. Thank you (Nette Maria MD) Keena Madsen Aug 14, 2016 15:24 Nette Maria MD Aug 14, 2016 20:07
--- NOTE | 2016-08-14 19:55 | MB ---
cc: MIRNA CLARKE M.D. DATE OF CONSULTATION 08/14/2016 REASON FOR CONSULTATION Status post syncope. HISTORY OF PRESENT ILLNESS The patient is a 70-year-old white male, followed last week in the hospital by Dr. 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 He sustained what was felt to be a pulseless electrical activity arrest approximately 08/04/2016. Cardiac enzymes were found to be mildly abnormal; from what I can gather he was treated medically. The patient is able to give only minimal history at this time. He denies any recent angina, shortness of breath, palpitations. He thinks he may have passed out either yesterday or this morning. According to the emergency room records the patient was at a residential facility when he complained of chest discomfort. He was given sublingual nitroglycerin and within 30 minutes he lost consciousness. PAST MEDICAL HISTORY 1. Coronary artery disease apparently with a remote history of bypass surgery. 2. Severe ischemic cardiomyopathy with ejection fraction of 25% by recent echo. He is also status post dual-chamber AICD implant. 3. Diabetes. 4. Hypertension. 5. Hyperlipidemia. 6. Hypothyroidism. 7. Glaucoma. 8. Status post pulseless electrical activity arrest 08/04/2016 which apparently was felt to be more respiratory in etiology. MEDICATIONS His cardiac medications at home: 1. Brilinta 90 mg b.i.d. 2. Furosemide 20 mg daily. 3. Carvedilol 6.25 mg b.i.d. 4. Zocor 20 mg q.h.s. 5. Imdur 30 mg daily. 6. Aspirin 81 mg daily. ALLERGIES CONTRAST, SULFA. FAMILY HISTORY Noncontributory. SOCIAL HISTORY The patient apparently is a nonsmoker. There is no history of alcohol abuse. Review of systems as in the history of present illness otherwise very difficult to elicit. PHYSICAL EXAMINATION VITAL SIGNS: On physical examination his blood pressure 117/53 with a pulse of 105, respirations 20. GENERAL: In general he is a well-developed, well-nourished white male currently in no acute distress. HEAD, EARS, EYES, NOSE, THROAT, NECK: Jugular venous pressure is normal. Carotid pulses are 2+ bilaterally and without bruits. LUNGS: Examination of the chest reveals clear lung hobson anteriorly. CARDIOVASCULAR: On cardiac examination he has a regular rhythm and rate without S3-S4 or murmur. ABDOMEN: On abdominal examination he has a soft, nontender abdomen. Bowel sounds are present. There is no definite hepatosplenomegaly. EXTREMITIES: Examination of extremities reveals no clubbing, cyanosis or edema. LABORATORY DATA Includes WBC 16.3, hemoglobin 8.1, platelets 403. Potassium 5.3, BUN 186, creatinine 2.67. CK 26. Troponin 0.05. Brain natriuretic peptide level 224. IMAGING Chest x-ray shows no acute disease. IMPRESSION Syncopal episode in this 70-year-old white male with a history of multiple medical problems including coronary artery disease, severe ischemic cardiomyopathy with ejection fraction of 25%, status post AICD implant, diabetes, glaucoma, hypothyroidism, recently admitted with the respiratory distress and pulseless electrical activity arrest, now admitted with syncope, acute on chronic renal insufficiency, possible GI bleeding. Overall I suspect his cardiac status is stable. There is no definite evidence for congestive heart failure at this time. There is no evidence for acute coronary syndrome. He has had recent interrogation of his AICD demonstrating no delivered therapies. He may have become hypotensive due to nitroglycerin administration as well as possible GI bleeding and dehydration. RECOMMENDATIONS 1. No specific recommendations from a cardiac standpoint at this time except would try to resume his cardiac medications as his blood pressures allow. 2. He is cleared from a cardiac standpoint for upper endoscopy and colonoscopy. 3. Will follow up as needed; he can follow up with his usual materials development engineer, who may be Dr. Love. It is unclear from the records. MD ARCHANA Marin/OLIVIA /5:22 PM /7:28 PM ALL
[2016-08-14] MEDS: LATANOPROST 0.005% OPHT SOLN 2.5 ML BTL RIGHT EYE SCH (21:00)
[2016-08-14 21:42] LABS: AUTOMATED NEUTROPHIL # 9.3 TH/MM3 (1.8-7.7); BASOPHIL # 0.1 TH/MM3 (0-0.2); BASOPHIL % 0.9 % (0.0-2.0); EOSINOPHIL # 0.3 TH/MM3 (0-0.4); EOSINOPHIL % 2.4 % (0.0-4.0); HEMATOCRIT 22.7 % (39.0-51.0); LYMPHOCYTE # 2.1 TH/MM3 (1.0-4.8); MEAN CELL VOLUME 96.2 FL (80.0-100.0); MEAN CORPUSCULAR HEMOGLOBIN 30.9 PG (27.0-34.0); MEAN CORPUSCULAR HGB CONC 32.1 % (32.0-36.0); MONO % 10.5 % (0.0-8.0); NEUT % 70.2 % (16.0-70.0); PLATELET COUNT 320 TH/MM3 (150-450); RED BLOOD COUNT 2.36 MIL/MM3 (4.50-5.90); RED CELL DISTRIBUTION WIDTH 16.8 % (11.6-17.2); WHITE BLOOD COUNT 13.3 TH/MM3 (4.0-11.0)
[2016-08-14 21:45] LABS: HEMO FLAGS AUTO DIFF
[2016-08-14 22:04] LABS: BICARBONATE 23.4 MEQ/L (21.0-32.0); POTASSIUM 5.2 MEQ/L (3.5-5.1)
--- NOTE | 2016-08-14 22:04 | MB ---
cc: KRISTOFER MORSE MD, HUMAYUN A. M.D. DATE OF CONSULTATION 08/14/[address] Morse for asking us to see this very pleasant 70-year-old white male who was seen by my partner, Dr. 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 At his last admission he was discharged and did not have a follow-up appointment with Dr. Love. In any case, he presents with a history of syncope after getting nitroglycerin. He had some chest pain, we think this is residual chest pain from his recent CPR as he is tender. He also has this significant GI bleed with what sounds like melena with dark stools. At this point he is confused. He thought earlier that he was in the [employer]. At this point he is not very responsive. Apparently, he is originally from [place]. From a cardiac perspective he has a history of cardiac arrest, STEMI, CHF, CKD, CAD, COPD, diabetes, thyroid disease, left peripheral fill defect, history of bypass surgery, history of ICD placement, history of cataract surgery and toe amputation. He was last seen by Dr. Love as a consultation for service call on 08/05/2016 and at that time was also recorded as having congestive heart failure, prior history of defibrillator treatment which remains remote. History of oxygen treatment, peripheral arterial disease, diabetes, chronic kidney disease, hypertension, dyslipidemia and cardiomyopathy. At that time he was treated for congestive heart failure, [id number] MO, diabetes. He is weaned off oxygen. FAMILY HISTORY Negative for heart disease. SOCIAL HISTORY Nonsmoker, nondrinker. ALLERGIES ALLERGIES TO CONTRAST, SULFA. REVIEW OF SYSTEMS Not available and positive mainly for chest pain. Denies seizure, headaches, vomiting, diarrhea, dysuria. Is positive for melena as mentioned above. PHYSICAL EXAMINATION VITAL SIGNS: Unable to give clearly. Pulse was 107, blood pressure was 117/53. HEENT: Eyes show no xanthelasma. Mouth showed no cyanosis or pallor. NECK: Showed no JVD. HEART: He has two heart sounds. No murmurs. CHEST: Chest was clear. ABDOMEN: Soft. No hepatosplenomegaly. EXTREMITIES: Legs no evidence of edema. NEUROLOGICAL: Exam was grossly intact. SKIN: Skin exam is intact. PSYCHIATRIC: No suicidal ideation. LABORATORY DATA White count 16.3, hemoglobin 9.4, MCV 97.9, troponin I 0.05, hemoglobin 9.5, white count 16.3. IMAGING STUDIES Carotid ultrasound showed 50% disease bilaterally. ASSESSMENT/PLAN This is a very sick patient who previously had a cardiac arrest with PEA and was found to have congestive heart failure, was treated for congestive heart failure, apparently, had a GI bleed on Brilinta and aspirin. He apparently has an ejection fraction estimated at 25%, was given some cautious IV fluid hydration and will be treated for GI bleed. At this point cardiac polo, he is stable. He has acute on chronic renal failure with elevated creatinine and BUN. The BUN rise is probably on the basis of the melena. At this point his overall prognosis is poor. Thank you for asking us to see this patient. NOTE EKG showed electronic ventricular pacemaker. Roxanna Wilkins MD, FRCP,[facility] HAJ/KEVIN /6:20 PM /9:33 PM MTDDulce
[2016-08-14 22:26] LABS: PLATELET ESTIMATE SMEAR NORMAL (NORMAL); PLATELET MORPHOLOGY NORMAL (NORMAL); SCAN/DIFF AUTO DIFF CONFIRMED
--- NOTE | 2016-08-14 23:04 | RADRPT ---
EXAM DATE/TIME: 08/14/2016 22:45 [facility] COMPARISON: No previous studies available for comparison. INDICATIONS : Altered mental status. RADIATION DOSE: 49.31 CTDIvol (mGy) MEDICAL HISTORY : Cardiovascular disease. Renal failure, chronic. Diabetes mellitus type 2. SURGICAL HISTORY : CABG ENCOUNTER: Initial ACUITY: 1 day PAIN SCALE: 4/10 LOCATION: cranial TECHNIQUE: Multiple contiguous axial images were obtained of the head. Using automated exposure control and adj ustment of the mA and/or kV according to patient size, radiation dose was kept as low as reasonably a chievable to obtain optimal diagnostic quality images. FINDINGS: CEREBRUM: Atrophy. The ventricles are normal for age. No evidence of midline shift, mass lesion, hemorrhage or acute infarction. No extra-axial fluid collections are seen. POSTERIOR FOSSA: The cerebellum and brainstem are intact. The 4th ventricle is midline. The cerebellopontine angle i s unremarkable. EXTRACRANIAL: The visualized portion of the orbits is intact. SKULL: The calvaria is intact. No evidence of skull fracture. CONCLUSION: No acute disease. Nando Welsh Jr., MD on August 14, 2016 at 23:00 Board Certified Radiologist. This report was verified electronically.
[2016-08-15] VITALS (27 sets, daily range): BP systolic 107–134; BP diastolic 42–53; PULSE 91–110; RESP 18–20; TEMP 97.4–98.1; O2SAT 96–100
[2016-08-15 03:50] LABS: HEMATOCRIT 25.5 % (39.0-51.0); REVIEW FLAG FINAL
[2016-08-15] MEDS: INSULIN ASPART SUPPLEMENTAL SCALE SQ SCH ×6 (07:00→20:34)
--- NOTE | 2016-08-15 07:12 | HHI.PR ---
Subjective Remarks In bed, appears in nad. Denies having any pain. No n/v/d/c. Says he did not have a BM. No chest pain or sob, satting well on RA Denies palpitations. Objective Vitals Vital Signs Date Time Temp Pulse Resp B/P Pulse Ox O2 Delivery O2 Flow Rate FiO2 08/15/16 06:00 104 08/15/16 05:00 100 08/15/16 04:00 104 08/15/16 03:00 104 08/15/16 03:00 97.7 101 20 120/42 100 08/15/16 02:00 104 08/15/16 01:00 100 08/15/16 00:00 102 08/14/16 23:00 96.1 106 20 114/50 100 08/14/16 23:00 100 08/14/16 22:00 100 08/14/16 21:00 100 08/14/16 20:00 98 08/14/16 19:00 97.5 97 20 114/41 100 08/14/16 19:00 99 08/14/16 18:00 103 08/14/16 17:48 97 Nasal Cannula 2.00 08/14/16 17:00 106 08/14/16 16:00 105 08/14/16 16:00 98.0 107 20 117/53 97 08/14/16 16:00 104 08/14/16 14:00 107 08/14/16 13:00 101 08/14/16 12:00 100 08/14/16 11:00 97.7 101 20 124/48 100 08/14/16 11:00 103 08/14/16 10:00 102 08/14/16 09:38 96 Nasal Cannula 2.00 08/14/16 09:00 102 08/14/16 08:00 100 08/14/16 08:00 97.6 101 16 131/48 98 I/O 08/14/16 08/14/16 08/14/16 08/15/16 08/15/16 08/15/16 07:00 15:00 23:00 07:00 15:00 23:00 Intake Total 240 ml 1390 ml 1210 ml Output Total 1350 ml 1750 ml 1775 ml Balance -1110 ml -360 ml -565 ml Intake Oral 240 ml 0 ml IV Total 1090 ml 1210 ml Packed Cells 300 ml Output Urine Total 1350 ml 1750 ml 1775 ml # Bowel Movements 2 1 Result Diagram: 08/15/16 0320 08/14/16 2111 Imaging Last Impressions Head CT 08/14/16 0000 Signed Impressions: Service Date/Time: Sunday, August 14, 2016 22:45 - CONCLUSION: No acute disease. Nando Welsh Jr., MD Chest X-Ray 08/13/16 0000 Signed Impressions: Service Date/Time: Saturday, August 13, 2016 15:37 - CONCLUSION: Interval removal of NG tube and ET tube. Near-complete clearance of the lungs. Scott Leblanc MD Carotid Artery Ultrasound 08/13/16 0000 Signed Impressions: Service Date/Time: Saturday, August 13, 2016 19:57 - CONCLUSION: Mild bilateral carotid plaque with hemodynamic profile characteristic of less than 50%% stenosis. Nando Reeves MD Objective Remarks GENERAL: This is a pale appearing, confused elderly male patient, in no apparent distress. SKIN: No rashes, ecchymoses or lesions. Cool and dry. Appears pale. HEAD: Atraumatic. Normocephalic. EYES: No scleral icterus. No injection or drainage. ENT: Nose without bleeding, purulent drainage. Mucous membranes appear dry. NECK: Trachea midline. No JVD or lymphadenopathy. CARDIOVASCULAR: Regular rate and rhythm without murmurs, gallops, or rubs. RESPIRATORY: Clear to auscultation. Breath sounds equal bilaterally. No wheezes , rales, or rhonchi. GASTROINTESTINAL: Abdomen soft, non-tender, nondistended. No guarding. MUSCULOSKELETAL: Extremities without clubbing, cyanosis, or edema. No calf tenderness. NEUROLOGICAL: Awake and alert. Motor and sensory grossly within normal limits. Normal speech. A/P Problem List: (1) GI bleed ICD Code: K92.2 Status: Acute (2) Syncope ICD Code: R55 Status: Acute Assessment and Plan Mr. Damico is a 70-year-old male who presented to the emergency room on 08/13/2016 after experiencing a syncopal episode at [facility]. 70 y/o male with recent NSTEMI, on aspirin and Brilinta who was brought to ER with syncope and GI bleed [facility]. GI bleed with syncopal episode - Initial hemoglobin 9.4 - will recheck H&H stat and transfuse if indicated - Consult gastroenterology to evaluate for GI bleed - Carotid ultrasound performed showing mild bilateral carotid plaque with hemodynamic profile characteristic of less than 50% stenosis - Continuous cardiac telemetry - Monitor vital signs every 4 hours - Hold antiplatelets and blood pressure medications for now - Plan for EGD - GI consulted and following Recent PEA cardiac arrest and history of congestive heart failure now here with GI bleed on Brilinta and aspirin - Consult cardiology - patient saw Dr. Love during last hospitalization - ejection fraction of 25% on echocardiogram dated 08/03/2016 - cautious IVF hydration - monitor strict I and Os - Cardiology consulted, cleared patient for EGD Generalized Debility following last hospitalization - consult PT and OT to prevent further weakness/debility Type 2 diabetes mellitus - Accu-Cheks before meals and at bedtime with low-dose sliding scale NovoLog coverage - Hypoglycemia treatment protocol ordered - Monitor trends and blood glucose and adjust treatments as indicated Acute on chronic renal failure likely secondary to dehydration and decreased perfusion related to anemia and GI bleed - BUN 186, creatinine 2.67, estimated GFR 24 - Gentle IV fluid hydration with normal saline at 50 cc per hour - avoid nephrotoxins - recheck BMP and follow trends in renal indices DVT prophylaxis - SCDs GI and cardiology consulted. Discussed Condition With patient, nurse Problem Qualifiers (1) GI bleed: Qualified Code: K92.1 - Gastrointestinal hemorrhage with melena (2) Syncope: Qualified Code: R55 - Syncope, unspecified syncope type Aliza Morse MD Aug 15, 2016 07:12
[2016-08-15] MEDS: PANTOPRAZOLE INJ 80 MG in SODIUM CHLORIDE 0.9% INJ 100 ML IV SCH ×2 (09:00→19:00)
[2016-08-15] MEDS: SODIUM CHLORIDE 0.9% FLUSH 10 ML FLUSH IV FLUSH SCH ×2 (09:17→20:35)
[2016-08-15] MEDS: SODIUM CHLOR 0.9% 1000 ML INJ 1,000 ML IV SCH (09:36)
--- NOTE | 2016-08-15 11:46 | PD.CARD.PN ---
Subjective Subjective Remarks No acute events overnight. No near syncopal or syncopal events. transfused X 1 unit PRBCS yesterday. H/H better today, but patient still appears pale. HR high. BP stable. Objective Vital Signs / I&O Vital Signs Date Time Temp Pulse Resp B/P Pulse Ox O2 Delivery O2 Flow Rate FiO2 08/15/16 10:02 108 08/15/16 09:44 98 Nasal Cannula 2.00 08/15/16 09:43 106 08/15/16 08:50 103 08/15/16 07:40 100 Room Air 08/15/16 07:24 97.8 105 18 128/44 100 08/15/16 07:00 96 08/15/16 06:00 104 08/15/16 05:00 100 08/15/16 04:00 104 08/15/16 03:00 104 08/15/16 03:00 97.7 101 20 120/42 100 08/15/16 02:00 104 08/15/16 01:00 100 08/15/16 00:00 102 08/14/16 23:00 96.1 106 20 114/50 100 08/14/16 23:00 100 08/14/16 22:00 100 08/14/16 21:00 100 08/14/16 20:00 98 08/14/16 19:00 97.5 97 20 114/41 100 08/14/16 19:00 99 08/14/16 18:00 103 08/14/16 17:48 97 Nasal Cannula 2.00 08/14/16 17:00 106 08/14/16 16:00 105 08/14/16 16:00 98.0 107 20 117/53 97 08/14/16 16:00 104 08/14/16 14:00 107 08/14/16 13:00 101 08/14/16 12:00 100 I/O 08/14/16 08/14/16 08/14/16 08/15/16 08/15/16 08/15/16 07:00 15:00 23:00 07:00 15:00 23:00 Intake Total 240 ml 1390 ml 1210 ml Output Total 1350 ml 1750 ml 1775 ml Balance -1110 ml -360 ml -565 ml Intake Oral 240 ml 0 ml IV Total 1090 ml 1210 ml Packed Cells 300 ml Output Urine Total 1350 ml 1750 ml 1775 ml # Bowel Movements 2 1 Physical Exam GENERAL: Elderly male, pallor, in transit for GI study SKIN: Warm and dry. HEAD: Normocephalic. EYES: No scleral icterus. No injection or drainage. NECK: Supple, trachea midline. CARDIOVASCULAR: Tachycardia RESPIRATORY: Breath sounds equal bilaterally. No accessory muscle use. Nasal cannula GASTROINTESTINAL: Abdomen soft, non-tender, nondistended. MUSCULOSKELETAL: No cyanosis, or edema. BACK: Nontender without obvious deformity. No CVA tenderness. Laboratory Laboratory Tests Test 08/14/16 08/15/16 21:11 03:20 White Blood Count 13.3 TH/MM3 Red Blood Count 2.36 MIL/MM3 Hemoglobin 7.3 GM/DL 8.4 GM/DL Hematocrit 22.7 % 25.5 % Mean Corpuscular Volume 96.2 FL Mean Corpuscular Hemoglobin 30.9 PG Mean Corpuscular Hemoglobin 32.1 % Concent Red Cell Distribution Width 16.8 % Platelet Count 320 TH/MM3 Mean Platelet Volume 8.7 FL Neutrophils (%) (Auto) 70.2 % Lymphocytes (%) (Auto) 16.0 % Monocytes (%) (Auto) 10.5 % Eosinophils (%) (Auto) 2.4 % Basophils (%) (Auto) 0.9 % Neutrophils # (Auto) 9.3 TH/MM3 Lymphocytes # (Auto) 2.1 TH/MM3 Monocytes # (Auto) 1.4 TH/MM3 Eosinophils # (Auto) 0.3 TH/MM3 Basophils # (Auto) 0.1 TH/MM3 CBC Comment AUTO DIFF Differential Comment AUTO DIFF CONFIRMED Platelet Estimate NORMAL Platelet Morphology Comment NORMAL Sodium Level 144 MEQ/L Potassium Level 5.2 MEQ/L Chloride Level 111 MEQ/L Carbon Dioxide Level 23.4 MEQ/L Anion Gap 10 MEQ/L Blood Urea Nitrogen 195 MG/DL Creatinine 2.55 MG/DL Estimat Glomerular Filtration 25 ML/MIN Rate Random Glucose 210 MG/DL Calcium Level 8.4 MG/DL Imaging Last [address] 08/14/16 0000 Signed Impressions: Service Date/Time: Sunday, August 14, 2016 22:45 - CONCLUSION: No acute disease. Nando Welsh Jr., MD Chest X-Ray 08/13/16 0000 Signed Impressions: Service Date/Time: Saturday, August 13, 2016 15:37 - CONCLUSION: Interval removal of NG tube and ET tube. Near-complete clearance of the lungs. Scott Leblanc MD Carotid Artery Ultrasound 08/13/16 0000 Signed Impressions: Service Date/Time: Saturday, August 13, 2016 19:57 - CONCLUSION: Mild bilateral carotid plaque with hemodynamic profile characteristic of less than 50%% stenosis. Nando Reeves MD Assessment and Plan Assessment and Plan ASSESSMENT: Syncope GI bleed/symptomatic anemia Recent history of PEA arrest Chronic systolic CHF CMP EF 25% s/p AICD ASHD COPD PLAN Patient going to GI study now to determine source of bleeding Resume Coreg tomorrow morning. Element tachycardia due to GI bleed. Monitor for recurrent CHF Will continue to follow with you. Assessment and plan discussed with Dr Wilkins. Shonda Tim Aug 15, 2016 11:46
[2016-08-15] MEDS ORDERED: PHENYLEPH/NS 1000 MCG/10 ML SYR IV ONE (12:00)
--- NOTE | 2016-08-15 12:41 | PQ ---
Physician Query Response Document PATIENT: LOUIS PATRICIO : 1945 ADMIT DATE: 08/13/2016 5:18 PM DISCH DATE: RESPONDING PROVIDER #: guillermo QUERY TEXT: Anemia Type Anemia is documented in the Medical Record. Please specify the cause (includes suspected or probable cause) Such as: -- Due to ACUTE blood loss -- Due to CHRONIC blood loss -- Due to iron deficiency -- Due to chronic disease -- Other, please specify The patient's Clinical Indicators include: PER PROGRESS NOTE 08/15/16: A/P Problem List: (1) GI bleed (2) Syncope 08/13/16 HGB=9.4 08/14/16 HGB=7.3 TRANSFUSED WITH 1 U PRBCs Query created by: Hina Cardozo on 08/15/2016 11:32 AM RESPONSE TEXT: Anemia due to acute GI bleeding (GI loss) Electronically signed by: Aliza Morse MD 08/15/2016 12:37 PM
[2016-08-15] MEDS ORDERED: PROPOFOL 200 MG/20 ML AMP IV ONE (13:10)
--- NOTE | 2016-08-15 13:17 | GIPROC ---
[facility] [address] [facility]. [facility], [address] EGD PROCEDURE REPORT EXAM DATE: 08/15/2016 PATIENT NAME: Iron Damico MR #: [id number] BIRTHDATE: 1945 ATTENDING: Nette Maria MD ORDER #: [id number] CHARGE OUT CLERK: Saad Trejo and Jonathan Trent STATUS: inpatient INDICATIONS: The patient is a 70 yr old male here for an EGD due to melena and acute post hemorrhagic anemia PROCEDURE PERFORMED: EGD, diagnostic MEDICATIONS: Per Anesthesia and None. TOPICAL ANESTHETIC: CONSENT: The patient understands the risks and benefits of the procedure and understands that these risks include, but are not limited to: sedation, allergic reaction, infection, perforation and/or bleeding. Alternative means of evaluation and treatment include, among others: physical exam, x-rays, and/or surgical intervention. The patient elects to proceed with this endoscopic procedure. medical equipment was checked for proper function. Hand hygiene and appropriate measures for infection prevention was taken. After the risks, benefits and alternatives of the procedure were thoroughly explained, Informed consent was verified, confirmed and timeout was successfully executed by the treatment team. The patient was anesthetized with topical anesthesia and the Pentax [id number] endoscope was introduced through the mouth and advanced to the second portion of the duodenum. Retroflexed views revealed no abnormalities The gastroscope was then slowly withdrawn and removed. ESOPHAGUS: There was LA Class B esophagitis noted. STOMACH: There was moderate gastritis in the gastric antrum. Old blood in stomach but no clear bleeding areas seen. ADVERSE EVENTS: There were no complications. IMPRESSIONS: 1. There was LA Class B esophagitis noted 2. There was gastritis in the gastric antrum; Old blood in stomach but no clear bleeding areas seen 3. Retroflexed views revealed no abnormalities RECOMMENDATIONS: 1. Anti-reflux regimen 2. Continue PPI 3. Monitor labs PATIENT CONDITION: stable DISPOSITION: Inpatient REPEAT EXAM: Return as needed for EGD Nette Maria MD eSigned: Nette Maria MD 08/15/2016 1:17 PM cc:
[2016-08-15] MEDS ORDERED: MIDAZOLAM HCL 2 MG/2 ML VIAL ONE (14:59)
[2016-08-15] MEDS: LATANOPROST 0.005% OPHT SOLN 2.5 ML BTL RIGHT EYE SCH (20:35)
[2016-08-16] VITALS (35 sets, daily range): BP systolic 114–156; BP diastolic 41–64; PULSE 95–110; RESP 18–20; TEMP 97.5–98.8; O2SAT 96–100
[2016-08-16] MEDS: PANTOPRAZOLE INJ 80 MG in SODIUM CHLORIDE 0.9% INJ 100 ML IV SCH ×3 (05:28→23:54)
[2016-08-16] MEDS: INSULIN ASPART SUPPLEMENTAL SCALE SQ SCH ×4 (06:26→20:24)
[2016-08-16 07:00] LABS: AUTOMATED NEUTROPHIL # 11.7 TH/MM3 (1.8-7.7); BASOPHIL # 0.2 TH/MM3 (0-0.2); BASOPHIL % 1.1 % (0.0-2.0); EOSINOPHIL # 0.6 TH/MM3 (0-0.4); EOSINOPHIL % 3.6 % (0.0-4.0); HEMATOCRIT 23.2 % (39.0-51.0); LYMPH % 10.6 % (9.0-44.0); LYMPHOCYTE # 1.6 TH/MM3 (1.0-4.8); MONO % 9.3 % (0.0-8.0); NEUT % 75.4 % (16.0-70.0); PLATELET COUNT 441 TH/MM3 (150-450); RED BLOOD COUNT 2.39 MIL/MM3 (4.50-5.90); RED CELL DISTRIBUTION WIDTH 16.9 % (11.6-17.2); WHITE BLOOD COUNT 15.5 TH/MM3 (4.0-11.0)
[2016-08-16 07:03] LABS: HEMO FLAGS AUTO DIFF
[2016-08-16 07:19] LABS: BICARBONATE 24.9 MEQ/L (21.0-32.0)
--- NOTE | 2016-08-16 07:37 | HHI.PR ---
Subjective Remarks In the bed. Feels tired. Denies any chest pain, shortness of breath, nausea, vomiting, diarrhea. No bleeding. Clear urine. Hemoglobin dropped today , plan to transfuse Objective Vitals Vital Signs Date Time Temp Pulse Resp B/P Pulse Ox O2 Delivery O2 Flow Rate FiO2 08/16/16 06:30 107 08/16/16 05:01 109 08/16/16 04:12 106 08/16/16 04:11 97.5 105 156/64 100 08/16/16 03:44 102 08/16/16 03:21 Room Air 2.00 08/16/16 02:38 104 08/16/16 01:00 96 08/16/16 00:00 100 08/15/16 23:17 105 08/15/16 23:05 Room Air 2.00 08/15/16 23:00 98.1 105 107/48 97 08/15/16 22:00 100 08/15/16 21:00 104 08/15/16 20:00 106 08/15/16 19:00 Room Air 2.00 08/15/16 19:00 109 08/15/16 19:00 97.4 110 108/46 97 08/15/16 18:03 109 08/15/16 17:09 109 08/15/16 16:00 100 08/15/16 15:18 96 Room Air 08/15/16 15:18 97.5 106 18 134/53 96 08/15/16 15:00 104 08/15/16 14:39 91 08/15/16 13:52 97.7 105 16 151/70 98 Nasal Cannula 2 08/15/16 13:45 104 16 139/80 98 Nasal Cannula 2 08/15/16 13:30 102 16 105/57 99 Nasal Cannula 2 08/15/16 13:25 100 20 105/50 99 08/15/16 13:23 97.9 102 20 95/30 99 Nasal Cannula 2 08/15/16 11:36 97.8 105 18 128/44 100 08/15/16 11:15 104 08/15/16 11:15 98.1 107 18 120/45 99 08/15/16 11:15 99 Room Air 08/15/16 10:02 108 08/15/16 09:44 98 Nasal Cannula 2.00 08/15/16 09:43 106 08/15/16 08:50 103 08/15/16 07:40 100 Room Air I/O 08/15/16 08/15/16 08/15/16 08/16/16 08/16/16 08/16/16 07:00 15:00 23:00 07:00 15:00 23:00 Intake Total 1210 ml 25 ml 1180 ml 1060 ml Output Total 1775 ml 300 ml 2000 ml 1550 ml Balance -565 ml -275 ml -820 ml -490 ml Intake Oral 0 ml 0 ml 480 ml 360 ml IV Total 1210 ml 25 ml 700 ml 700 ml Output Urine Total 1775 ml 300 ml 2000 ml 1550 ml Stool Total 0 ml # Bowel Movements 1 Result Diagram: 08/16/16 0608/16/16 06 Imaging Last Impressions Head CT 08/14/16 0000 Signed Impressions: Service Date/Time: Sunday, August 14, 2016 22:45 - CONCLUSION: No acute disease. Nando Welsh Jr., MD Chest X-Ray 08/13/16 0000 Signed Impressions: Service Date/Time: Saturday, August 13, 2016 15:37 - CONCLUSION: Interval removal of NG tube and ET tube. Near-complete clearance of the lungs. Scott Leblanc MD Carotid Artery Ultrasound 08/13/16 0000 Signed Impressions: Service Date/Time: Saturday, August 13, 2016 19:57 - CONCLUSION: Mild bilateral carotid plaque with hemodynamic profile characteristic of less than 50%% stenosis. Nando Reeves MD Objective Remarks GENERAL: This is a pale appearing, confused elderly male patient, in no apparent distress. SKIN: No rashes, ecchymoses or lesions. Cool and dry. Appears pale. HEAD: Atraumatic. Normocephalic. EYES: No scleral icterus. No injection or drainage. ENT: Nose without bleeding, purulent drainage. Mucous membranes appear dry. NECK: Trachea midline. No JVD or lymphadenopathy. CARDIOVASCULAR: Regular rate and rhythm without murmurs, gallops, or rubs. RESPIRATORY: Clear to auscultation. Breath sounds equal bilaterally. No wheezes , rales, or rhonchi. GASTROINTESTINAL: Abdomen soft, non-tender, nondistended. No guarding. MUSCULOSKELETAL: Extremities without clubbing, cyanosis, or edema. No calf tenderness. NEUROLOGICAL: Awake and alert. Motor and sensory grossly within normal limits. Normal speech. A/P Problem List: (1) GI bleed ICD Code: K92.2 Status: Acute (2) Syncope ICD Code: R55 Status: Acute Assessment and Plan Mr. Dmaico is a 70-year-old male who presented to the emergency room on 08/13/2016 after experiencing a syncopal episode at [facility]. 70 y/o male with recent NSTEMI, on aspirin and Brilinta who was brought to ER with syncope and GI bleed [facility]. Likely acute on chronic GI bleed with syncopal episode. - GI consulted and following - Initial hemoglobin 9.4 - will recheck H&H stat and transfuse if indicated - Consult gastroenterology to evaluate for GI bleed - Carotid ultrasound performed showing mild bilateral carotid plaque with hemodynamic profile characteristic of less than 50% stenosis - Continuous cardiac telemetry - Monitor vital signs every 4 hours - Hold antiplatelets and blood pressure medications for now - S/P EGD: LA Class B esophagitis - Gastritis in the gastric antrum. Old blood in the stomach but no evidence of active bleeding /source of bleeding - Continue PPI - HGB at 7.6 complicated pt. transfuse 2 U PRBC today. Monitor H/H. Nye HGB > 9 in cardiac patient. Will pretreat as well Acute on chronic renal failure likely secondary to dehydration and decreased perfusion related to anemia and GI bleed. Kidney function slowly improving Hypernatremia Na 150 on 08/16. Change fluids to 1/2 NS at 60cc. Monitor Na trend - BUN 186, creatinine 2.67, estimated GFR 24 - Gentle IV fluid hydration with normal saline at 50 cc per hour - avoid nephrotoxins - recheck BMP and follow trends in renal indices Recent PEA cardiac arrest and history of congestive heart failure now here with GI bleed on Brilinta and aspirin - Consult cardiology - patient saw Dr. Love during last hospitalization - ejection fraction of 25% on echocardiogram dated 08/03/2016 - cautious IVF hydration - monitor strict I and Os - Cardiology consulted, cleared patient for EGD Generalized Debility following last hospitalization - consult PT and OT to prevent further weakness/debility Type 2 diabetes mellitus - Accu-Cheks before meals and at bedtime with low-dose sliding scale NovoLog coverage - Hypoglycemia treatment protocol ordered - Monitor trends and blood glucose and adjust treatments as indicated DVT prophylaxis - SCDs GI and cardiology consulted. Discussed Condition With patient, nurse Discharge when improved and cleared by consultants Problem Qualifiers (1) GI bleed: Qualified Code: K92.1 - Gastrointestinal hemorrhage with melena (2) Syncope: Qualified Code: R55 - Syncope, unspecified syncope type Aliza Morse MD Aug 16, 2016 07:37
[2016-08-16 08:06] LABS: BASOPHILS 1 % (0-2); EOSINOPHILS 2 % (0-4); METAMYELOCYTES 1 % (0-1); MYELOCYTES 2 % (0-0); NEUTROPHIL # MANUAL DIFF 11.9 TH/MM3 (1.8-7.7); POLYS (SEG NEUTROPHILS) 74 % (16-70); WBC DIFF SAMPLE 100
[2016-08-16 08:07] LABS: PLATELET ESTIMATE SMEAR NORMAL (NORMAL); PLATELET MORPHOLOGY NORMAL (NORMAL); SCAN/DIFF FINAL DIFF MANUAL
[2016-08-16] MEDS ORDERED: HYDR-3516 PO (08:14)
[2016-08-16] MEDS ORDERED: PANT40TA3 PO (08:15)
--- NOTE | 2016-08-16 08:15 | HHI.DS ---
Discharge Summary Admission Date Aug 13, 2016 at 17:18 Discharge Date: Aug 17, 2016 Admitting Diagnosis GI bleed, syncope (1) GI bleed ICD Code: K92.2 Diagnosis: Principal (2) Syncope ICD Code: R55 Diagnosis: Secondary Procedures EGD Brief History - From Admission Mr. Damico is a 70-year-old male with a history of hypothyroidism, diabetes mellitus, COPD, coronary artery disease, ischemic cardiomyopathy with ejection fraction of 25% on echocardiogram dated 08/03/2016, chronic kidney disease, congestive heart failure, STEMI, and recent PA cardiac arrest on 08/04/2016 who presented to the emergency room on 08/13/2016 after experiencing a syncopal episode at [facility]. The patient is seen in his hospital room. He appears confused and states that he is at [facility]. He is aware that the month is August but believes that the date is the . He is unable to recall any specific information about why he is here and at one point in time seems to think that he is back in [place] where he recently relocated to [place] from. Therefore, most of his history is obtained from multiple family members who are at the bedside. The family reports that the patient is been complaining of rib pain since CPR was performed on him after cardiac arrest here at the hospital during his admission (states August 02, 2016 through August 08, 2016). They believe the patient was reporting this pain and that staff at the longterm facility thought he was having angina and gave him nitroglycerin. They state that afterward, he turned fields, his eyes rolled up in his head, and he passed out. The patient denies pain during his interview. Denies any history of stomach ulcers or gi bleed; has never had an endoscopy or colonoscopy. He has had urinary catheter since hospital discharge on August 08, 2016. CBC/BMP: 08/16/16 0617 08/16/16 0617 Significant Findings Laboratory Tests Test 08/13/16 08/14/16 08/14/16 08/15/16 15:40 01:05 21:11 03:20 White Blood Count 16.3 TH/MM3 13.3 TH/MM3 (4.0-11.0) (4.0-11.0) Red Blood Count 2.96 MIL/MM3 2.36 MIL/MM3 (4.50-5.90) (4.50-5.90) Hemoglobin 9.4 GM/DL 8.1 GM/DL 7.3 GM/DL 8.4 GM/DL (13.0-17.0) (13.0-17.0) (13.0-17.0) (13.0-17.0) Hematocrit 28.9 % 24.0 % 22.7 % 25.5 % (39.0-51.0) (39.0-51.0) (39.0-51.0) (39.0-51.0) Neutrophils (%) (Auto) 74.8 % 70.2 % (16.0-70.0) (16.0-70.0) Monocytes (%) (Auto) 12.0 % 10.5 % (0.0-8.0) (0.0-8.0) Neutrophils # (Auto) 12.1 TH/MM3 9.3 TH/MM3 (1.8-7.7) (1.8-7.7) Monocytes # (Auto) 2.0 TH/MM3 1.4 TH/MM3 (0-0.9) (0-0.9) Eosinophils # (Auto) 0.5 TH/MM3 (0-0.4) Neutrophils % (Manual) 71 % (16-70) Lymphocytes % 6 % (9-44) Monocytes % 11 % (0-8) Eosinophils % 6 % (0-4) Neutrophils # (Manual) 12.4 TH/MM3 (1.8-7.7) Myelocytes 1 % (0-0) Platelet Estimate HIGH (NORMAL) Activated Partial 31.3 SEC Thromboplast Time (24.3-30.1) Urine Turbidity HAZY (CLEAR) Urine Occult Blood TRACE (NEG) Urine Leukocyte Esterase LARGE (NEG) Urine RBC 8 /hpf (0-3) Urine WBC 45 /hpf (0-5) Urine Bacteria FEW /hpf (NONE) Urine Mucus FEW /lpf (OCC) Urine Yeast (Budding) MOD (NONE) Sodium Level 135 MEQ/L (136-145) Potassium Level 5.3 MEQ/L 5.3 MEQ/L 5.2 MEQ/L (3.5-5.1) (3.5-5.1) (3.5-5.1) Blood Urea Nitrogen 160 MG/DL 186 MG/DL 195 MG/DL (7-18) (7-18) (7-18) Creatinine 2.70 MG/DL 2.67 MG/DL 2.55 MG/DL (0.60-1.30) (0.60-1.30) (0.60-1.30) Estimat Glomerular Filtration 23 ML/MIN (>89) 24 ML/MIN (>89) 25 ML/MIN (>89) Rate Random Glucose 178 MG/DL 208 MG/DL 210 MG/DL (74-106) (74-106) (74-106) Calcium Level 8.4 MG/DL 8.4 MG/DL (8.5-10.1) (8.5-10.1) Magnesium Level 2.8 MG/DL (1.5-2.5) Total Creatine Kinase 26 U/L (39-308) B-Type Natriuretic Peptide 224 PG/ML (0-100) Aspartate Amino Transf 10 U/L (15-37) (AST/SGOT) Alkaline Phosphatase 43 U/L (45-117) Total Protein 6.2 GM/DL (6.4-8.2) Albumin 2.0 GM/DL (3.4-5.0) Chloride Level 111 MEQ/L (98-107) Test 08/16/16 06:17 White Blood Count 15.5 TH/MM3 (4.0-11.0) Red Blood Count 2.39 MIL/MM3 (4.50-5.90) Hemoglobin 7.6 GM/DL (13.0-17.0) Hematocrit 23.2 % (39.0-51.0) Neutrophils (%) (Auto) 75.4 % (16.0-70.0) Monocytes (%) (Auto) 9.3 % (0.0-8.0) Neutrophils # (Auto) 11.7 TH/MM3 (1.8-7.7) Monocytes # (Auto) 1.4 TH/MM3 (0-0.9) Eosinophils # (Auto) 0.6 TH/MM3 (0-0.4) Neutrophils % (Manual) 74 % (16-70) Monocytes % 10 % (0-8) Neutrophils # (Manual) 11.9 TH/MM3 (1.8-7.7) Myelocytes 2 % (0-0) Sodium Level 150 MEQ/L (136-145) Chloride Level 118 MEQ/L (98-107) Blood Urea Nitrogen 128 MG/DL (7-18) Creatinine 2.13 MG/DL (0.60-1.30) Estimat Glomerular Filtration 31 ML/MIN (>89) Rate Random Glucose 193 MG/DL (74-106) Imaging Last Impressions Head CT 08/14/16 0000 Signed Impressions: Service Date/Time: Sunday, August 14, 2016 22:45 - CONCLUSION: No acute disease. Nando Welsh Jr., MD Chest X-Ray 08/13/16 0000 Signed Impressions: Service Date/Time: Saturday, August 13, 2016 15:37 - CONCLUSION: Interval removal of NG tube and ET tube. Near-complete clearance of the lungs. Scott Leblanc MD Carotid Artery Ultrasound 08/13/16 0000 Signed Impressions: Service Date/Time: Saturday, August 13, 2016 19:57 - CONCLUSION: Mild bilateral carotid plaque with hemodynamic profile characteristic of less than 50%% stenosis. Nando Reeves MD PE at Discharge GENERAL: This is a pale appearing, confused elderly male patient, in no apparent distress. SKIN: No rashes, ecchymoses or lesions. Cool and dry. Appears pale. HEAD: Atraumatic. Normocephalic. EYES: No scleral icterus. No injection or drainage. ENT: Nose without bleeding, purulent drainage. Mucous membranes appear dry. NECK: Trachea midline. No JVD or lymphadenopathy. CARDIOVASCULAR: Regular rate and rhythm without murmurs, gallops, or rubs. RESPIRATORY: Clear to auscultation. Breath sounds equal bilaterally. No wheezes , rales, or rhonchi. GASTROINTESTINAL: Abdomen soft, non-tender, nondistended. No guarding. MUSCULOSKELETAL: Extremities without clubbing, cyanosis, or edema. No calf tenderness. NEUROLOGICAL: Awake and alert. Motor and sensory grossly within normal limits. Normal speech. Pt update on day of discharge No chest pain, diaphoresis, sob, denies n/v/d/c. Had BM yesterday. Feels better. Hospital Course Mr. Damico is a 70-year-old male who presented to the emergency room on 08/13/2016 after experiencing a syncopal episode at [facility]. 70 y/o male with recent NSTEMI, on aspirin and Brilinta who was brought to ER with syncope and GI bleed while at [facility]. Likely acute on chronic GI bleed with syncopal episode. - GI consulted and following - Initial hemoglobin 9.4 - will recheck H&H stat and transfuse if indicated - Consult gastroenterology to evaluate for GI bleed - Carotid ultrasound performed showing mild bilateral carotid plaque with hemodynamic profile characteristic of less than 50% stenosis - Continuous cardiac telemetry - Monitor vital signs every 4 hours - Hold antiplatelets and blood pressure medications for now - S/P EGD: LA Class B esophagitis - Gastritis in the gastric antrum. Old blood in the stomach but no evidence of active bleeding /source of bleeding - Continue PPI - HGB at 7.6 complicated pt. transfuse 2 U PRBC 08/16. Repeat HGB at 8.8 Acute on chronic renal failure likely secondary to dehydration and decreased perfusion related to anemia and GI bleed. Kidney function slowly improving Hypernatremia Na 150 on 08/16. Change fluids to 1/2 NS at 60cc. Monitor Na trend - BUN 186, creatinine 2.67, estimated GFR 24. - Gentle IV fluid hydration with normal saline at 50 cc per hour - avoid nephrotoxins - recheck BMP and follow trends in renal indices. Kidney indices improved. Recent PEA cardiac arrest and history of congestive heart failure now here with GI bleed on Brilinta and aspirin - Consult cardiology - patient saw Dr. Love during last hospitalization - ejection fraction of 25% on echocardiogram dated 08/03/2016 - cautious IVF hydration - monitor strict I and Os - Cardiology consulted, cleared patient for EGD. Plan to DC brilint aat DC and have patient on ASA 81 mg daily and plavix 75 mg po daily. GI ok to restart anticoagulation at DC. Generalized Debility following last hospitalization - consult PT and OT to prevent further weakness/debility Type 2 diabetes mellitus - Accu-Cheks before meals and at bedtime with low-dose sliding scale NovoLog coverage - Hypoglycemia treatment protocol ordered - Monitor trends and blood glucose and adjust treatments as indicated DVT prophylaxis - SCDs GI and cardiology consulted. Discussed Condition With patient, nurse Improved cleared by consultants, per GI can resume anticoagulation Discharged to SNF in stable condition to follow up as OP with PCP and consultants. Pt Condition on Discharge: Stable Discharge Disposition: Discharge to SNF Discharge Time: > 30 minutes Discharge Instructions DIET: Follow Instructions for: Heart Healthy Diet, Diabetic Diet Activities you can perform: Regular-No Restrictions Follow up Referrals: Cardiology - 1 Week Gastroenterology - 2 Weeks PCP Follow-up - 3-5 Days New Medications: Clopidogrel (Plavix) 75 Mg Tab 75 MG PO DAILY Blood Clot Prevention #30 Ref 0 TAB Docusate Sodium (Colace) 100 Mg Cap 100 MG PO BID Constipation #60 Ref 0 CAP Ferrous Sulfate (Ferrous Sulfate) 325 Mg Tab 325 MG PO DAILY Nutritional Supplement #30 Ref 0 TAB Pantoprazole (Pantoprazole) 40 Mg Tab 40 MG PO DAILY Reflux #30 Ref 0 TAB Continued Medications: Aspirin DR (Aspirin EC Low Dose) 81 Mg Tabec 81 MG PO DAILY TAB Brimonidine-Timolol Opth Drops (Combigan Opth Drops) 0.2-0.5% Soln 1 DROP RIGHT EYE Q12HR Glaucoma Ref 0 BOTTLE Brinzolamide Opth Drops (Azopt Opth Drops) 1% Susp 1 DROP RIGHT EYE BID BOTTLE Carvedilol (Carvedilol) 6.25 Mg Tab 6.25 MG PO BID #60 Ref 0 TAB Furosemide (Furosemide) 20 Mg Tab 20 MG PO DAILY Fluid #30 TAB Hydrocodone-Acetaminophen (Hydrocodone-Acetaminophen) 5-325 mg Tab 1 TAB PO Q4H PRN PAIN #20 TAB (This prescription has been renewed) Insulin Detemir Inj (Levemir Flextouch Pen Inj) 300 unit/3 ML Pen 40 UNITS SQ HS Blood Sugar Management Ref 0 PEN Insulin Lispro (Human) Inj (Humalog Inj) 1,000 Unit/10 Ml Vial 2-10 UNITS SQ ACHS Max dose at bedtime:( )units; sugars < 70,(0)units; sugars 150-199,(2)units; sugars 200-249,(4)units; sugars 250-299,(7)units; sugars 300- 349,(10)units; sugars more than 349,(12)units. Blood Sugar Management #1 Ref 0 VIAL Isosorbide Mononitrate ER (Isosorbide Mononitrate ER) 30 Mg Adriana 30 MG PO DAILY Prevent Chest Pain #30 Ref 0 TAB Levothyroxine (Levothyroxine) 50 Mcg Tab 50 MCG PO DAILY Thyroid #30 Ref 0 TAB Multiple Vitamins W/ Minerals (Centrum Silver Adult 50+) 1 Tab Tab 1 TAB PO DAILY Nitroglycerin SL (Nitroglycerin SL) 0.4 Mg Subl 0.4 MG SL DIRECTED ONE TABLET UNDER THE TONGUE NEEDED FOR CHEST PAIN, MAY REPEAT EVERY FIVE MINUTES FOR A TOTAL OF 3 DOSES OR CALL 911 IF NO RELIEF PRN CHEST PAIN #100 Ref 0 TAB.SL Nystatin Liq (Nystatin Liq) 100,000 unit/ml Susp 6 ML SWISH-SWAL QID ANTIFUNGAL Ref 0 ML Polyvinyl Alcohol-Povidone Opth Drops (Refresh Opth Drops) 1.4-0.6% Drops 1 DROP EACH EYE TID PRN DRY EYE #1 Ref 0 BOTTLE Simvastatin (Zocor) 20 Mg Tab 20 MG PO HS Cholesterol Management #30 Ref 0 TAB Travoprost Opth Drops (Travatan Z Opth Drops) 0.004 % Soln 1 DROP RIGHT EYE HS Glaucoma #1 Ref 0 BOTTLE Aliza Morse MD Aug 16, 2016 08:15
[2016-08-16] MEDS ORDERED: COLA100C3 PO (08:19)
[2016-08-16] MEDS ORDERED: FERR325T PO (08:19)
[2016-08-16] MEDS ORDERED: FUROSEMIDE 20 MG/2 ML VIAL IV ONE (08:30)
[2016-08-16] MEDS ORDERED: SODIUM CHLOR 0.9% 250 ML INJ 250 ML IV ONE (08:30)
[2016-08-16] MEDS ORDERED: ACETAMINOPHEN 325 MG TAB PO PRN (08:30)
[2016-08-16] MEDS ORDERED: diphenhydrAMINE HCL 25 MG CAP PO PRN (08:30)
[2016-08-16] MEDS: SODIUM CHLOR 0.45% 1000 ML INJ 1,000 ML IV SCH ×2 (08:30→23:54)
[2016-08-16] MEDS: CARVEDILOL 6.25 MG TAB PO SCH ×2 (08:49→20:22)
[2016-08-16] MEDS: SODIUM CHLORIDE 0.9% FLUSH 10 ML FLUSH IV FLUSH SCH ×2 (08:50→20:24)
--- NOTE | 2016-08-16 14:58 | HHI.GIFU ---
Subjective Remarks Pt resting in bed comfortably. Denies pain. Per RN no BM today. Ate breakfast and lunch. (eKena Madsen) Objective Vitals I&O Vital Signs Date Time Temp Pulse Resp B/P Pulse Ox O2 Delivery O2 Flow Rate FiO2 08/16/16 14:29 98.6 99 18 118/52 96 08/16/16 14:07 98.8 102 18 114/47 99 08/16/16 14:00 102 08/16/16 13:00 100 08/16/16 12:00 107 08/16/16 11:46 98.5 107 18 115/45 100 08/16/16 11:26 98.4 108 18 130/48 97 08/16/16 11:26 Room Air 08/16/16 11:00 106 08/16/16 10:48 98.4 108 18 129/41 97 08/16/16 10:15 98.3 110 18 144/42 98 08/16/16 10:00 106 08/16/16 09:55 98.2 109 20 144/53 99 08/16/16 09:00 108 08/16/16 08:38 97.9 105 18 130/62 100 08/16/16 08:34 Room Air 08/16/16 08:00 100 08/16/16 07:00 102 08/16/16 06:30 107 08/16/16 05:01 109 08/16/16 04:12 106 08/16/16 04:11 97.5 105 156/64 100 08/16/16 03:44 102 08/16/16 03:21 Room Air 2.00 08/16/16 02:38 104 08/16/16 01:00 96 08/16/16 00:00 100 08/15/16 23:17 105 08/15/16 23:05 Room Air 2.00 08/15/16 23:00 98.1 105 107/48 97 08/15/16 22:00 100 08/15/16 21:00 104 08/15/16 20:00 106 08/15/16 19:00 Room Air 2.00 08/15/16 19:00 109 08/15/16 19:00 97.4 110 108/46 97 08/15/16 18:03 109 08/15/16 17:09 109 08/15/16 16:00 100 08/15/16 15:18 96 Room Air 08/15/16 15:18 97.5 106 18 134/53 96 08/15/16 15:00 104 I/O 08/15/16 08/15/16 08/15/16 08/16/16 08/16/16 08/16/16 07:00 15:00 23:00 07:00 15:00 23:00 Intake Total 1210 ml 25 ml 1180 ml 1060 ml Output Total 1775 ml 300 ml 2000 ml 1550 ml Balance -565 ml -275 ml -820 ml -490 ml Intake Oral 0 ml 0 ml 480 ml 360 ml IV Total 1210 ml 25 ml 700 ml 700 ml Output Urine Total 1775 ml 300 ml 2000 ml 1550 ml Stool Total 0 ml # Bowel Movements 1 Laboratory Laboratory Tests Test 08/16/16 08/16/16 06:17 08:29 White Blood Count 15.5 Red Blood Count 2.39 Hemoglobin 7.6 Hematocrit 23.2 Mean Corpuscular Volume 97.0 Mean Corpuscular Hemoglobin 32.0 Mean Corpuscular Hemoglobin 33.0 Concent Red Cell Distribution Width 16.9 Platelet Count 441 Mean Platelet Volume 8.4 Neutrophils (%) (Auto) 75.4 Lymphocytes (%) (Auto) 10.6 Monocytes (%) (Auto) 9.3 Eosinophils (%) (Auto) 3.6 Basophils (%) (Auto) 1.1 Neutrophils # (Auto) 11.7 Lymphocytes # (Auto) 1.6 Monocytes # (Auto) 1.4 Eosinophils # (Auto) 0.6 Basophils # (Auto) 0.2 CBC Comment AUTO DIFF Differential Total Cells 100 Counted Neutrophils % (Manual) 74 Lymphocytes % 10 Monocytes % 10 Eosinophils % 2 Basophils % 1 Neutrophils # (Manual) 11.9 Metamyelocytes 1 Myelocytes 2 Differential Comment FINAL DIFF MANUAL Platelet Estimate NORMAL Platelet Morphology Comment NORMAL Sodium Level 150 Potassium Level 5.0 Chloride Level 118 Carbon Dioxide Level 24.9 Anion Gap 7 Blood Urea Nitrogen 128 Creatinine 2.13 Estimat Glomerular Filtration 31 Rate Random Glucose 193 Calcium Level 9.0 Blood Type O POSITIVE Crossmatch Leukocyte-Reduced Red Blood Cells Blood Bank Comment Date/Time Procedure Status Source Growth 08/13/16 15:40 Urine Culture - Final Complete Urine Random Urine 50-100,000 CFU/ML MIXED GRAM POSITIVE... Imaging Last Impressions Head CT 08/14/16 0000 Signed Impressions: Service Date/Time: Sunday, August 14, 2016 22:45 - CONCLUSION: No acute disease. Nando Welsh Jr., MD Chest X-Ray 08/13/16 0000 Signed Impressions: Service Date/Time: Saturday, August 13, 2016 15:37 - CONCLUSION: Interval removal of NG tube and ET tube. Near-complete clearance of the lungs. Scott Leblanc MD Carotid Artery Ultrasound 08/13/16 0000 Signed Impressions: Service Date/Time: Saturday, August 13, 2016 19:57 - CONCLUSION: Mild bilateral carotid plaque with hemodynamic profile characteristic of less than 50%% stenosis. Nando Reeves MD Physical Exam GENERAL: color better today HEENT: EOMI; normocephalic; atraumatic; no jaundice. NECK: Neck is supple, CHEST: Chest is clear to auscultation and percussion. CARDIAC: Regular rate and rhythm with no murmur gallop or rubs. ABDOMEN: Soft, obese, nontender; no hepatosplenomegaly; bowel sounds are present in all four quadrants. EXTREMITIES: No clubbing, cyanosis, or edema. SKIN: Normal; no rash; no jaundice. 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 (Keena Madsen) Assessment and Plan Plan ASSESSMENT: - possible upper GI bleed, EGD 08/15/16----> LA class B esophagitis, old blood, no clear bleeding areas. No BM today. - Anemia, Hgb 7.6, 23.2 PLAN: - continue to monitor HH - transfuse as needed - continue PPI This patient was examined by myself and Dr. Maria and this note is written on his behalf (Keena Madsen) Physician Comments Seen and examined with [employer], s/p egd yesterday. Pt. is very poor candidate for sedation/anesthesia, will not tolerate colonoscopy. Monitor labs. Anticoagulate as needed. thank you (Nette Maria MD) Keena Madsen Aug 16, 2016 14:58 Nette Maria MD Aug 16, 2016 19:05
--- NOTE | 2016-08-16 15:42 | PD.CARD.PN ---
Subjective Subjective Remarks No acute events overnight. BP and HR stable. Currently being transfused with Lasix. Had GI study yesterday. (Shonda Tim) Objective Vital Signs / I&O Vital Signs Date Time Temp Pulse Resp B/P Pulse Ox O2 Delivery O2 Flow Rate FiO2 08/16/16 14:29 98.6 99 18 118/52 96 08/16/16 14:07 98.8 102 18 114/47 99 08/16/16 14:00 102 08/16/16 13:00 100 08/16/16 12:00 107 08/16/16 11:46 98.5 107 18 115/45 100 08/16/16 11:26 98.4 108 18 130/48 97 08/16/16 11:26 Room Air 08/16/16 11:00 106 08/16/16 10:48 98.4 108 18 129/41 97 08/16/16 10:15 98.3 110 18 144/42 98 08/16/16 10:00 106 08/16/16 09:55 98.2 109 20 144/53 99 08/16/16 09:00 108 08/16/16 08:38 97.9 105 18 130/62 100 08/16/16 08:34 Room Air 08/16/16 08:00 100 08/16/16 07:00 102 08/16/16 06:30 107 08/16/16 05:01 109 08/16/16 04:12 106 08/16/16 04:11 97.5 105 156/64 100 08/16/16 03:44 102 08/16/16 03:21 Room Air 2.00 08/16/16 02:38 104 08/16/16 01:00 96 08/16/16 00:00 100 08/15/16 23:17 105 08/15/16 23:05 Room Air 2.00 08/15/16 23:00 98.1 105 107/48 97 08/15/16 22:00 100 08/15/16 21:00 104 08/15/16 20:00 106 08/15/16 19:00 Room Air 2.00 08/15/16 19:00 109 08/15/16 19:00 97.4 110 108/46 97 08/15/16 18:03 109 08/15/16 17:09 109 08/15/16 16:00 100 I/O 08/15/16 08/15/16 08/15/16 08/16/16 08/16/16 08/16/16 07:00 15:00 23:00 07:00 15:00 23:00 Intake Total 1210 ml 25 ml 1180 ml 1060 ml Output Total 1775 ml 300 ml 2000 ml 1550 ml Balance -565 ml -275 ml -820 ml -490 ml Intake Oral 0 ml 0 ml 480 ml 360 ml IV Total 1210 ml 25 ml 700 ml 700 ml Output Urine Total 1775 ml 300 ml 2000 ml 1550 ml Stool Total 0 ml # Bowel Movements 1 Physical Exam GENERAL: Elderly male, pallor, in transit for GI study SKIN: Warm and dry. HEAD: Normocephalic. EYES: No scleral icterus. No injection or drainage. NECK: Supple, trachea midline. CARDIOVASCULAR: Tachycardia RESPIRATORY: Breath sounds equal bilaterally. No accessory muscle use. Nasal cannula GASTROINTESTINAL: Abdomen soft, non-tender, nondistended. MUSCULOSKELETAL: No cyanosis, or edema. BACK: Nontender without obvious deformity. No CVA tenderness. Laboratory Laboratory Tests Test 08/16/16 08/16/16 06:17 08:29 White Blood Count 15.5 TH/MM3 Red Blood Count 2.39 MIL/MM3 Hemoglobin 7.6 GM/DL Hematocrit 23.2 % Mean Corpuscular Volume 97.0 FL Mean Corpuscular Hemoglobin 32.0 PG Mean Corpuscular Hemoglobin 33.0 % Concent Red Cell Distribution Width 16.9 % Platelet Count 441 TH/MM3 Mean Platelet Volume 8.4 FL Neutrophils (%) (Auto) 75.4 % Lymphocytes (%) (Auto) 10.6 % Monocytes (%) (Auto) 9.3 % Eosinophils (%) (Auto) 3.6 % Basophils (%) (Auto) 1.1 % Neutrophils # (Auto) 11.7 TH/MM3 Lymphocytes # (Auto) 1.6 TH/MM3 Monocytes # (Auto) 1.4 TH/MM3 Eosinophils # (Auto) 0.6 TH/MM3 Basophils # (Auto) 0.2 TH/MM3 CBC Comment AUTO DIFF Differential Total Cells 100 Counted Neutrophils % (Manual) 74 % Lymphocytes % 10 % Monocytes % 10 % Eosinophils % 2 % Basophils % 1 % Neutrophils # (Manual) 11.9 TH/MM3 Metamyelocytes 1 % Myelocytes 2 % Differential Comment FINAL DIFF MANUAL Platelet Estimate NORMAL Platelet Morphology Comment NORMAL Sodium Level 150 MEQ/L Potassium Level 5.0 MEQ/L Chloride Level 118 MEQ/L Carbon Dioxide Level 24.9 MEQ/L Anion Gap 7 MEQ/L Blood Urea Nitrogen 128 MG/DL Creatinine 2.13 MG/DL Estimat Glomerular Filtration 31 ML/MIN Rate Random Glucose 193 MG/DL Calcium Level 9.0 MG/DL Blood Type O POSITIVE Crossmatch Leukocyte-Reduced Red Blood Cells Blood Bank Comment (Shonda Tim) Assessment and Plan Assessment and Plan ASSESSMENT: GI bleed/symptomatic anemia- EGD 08/15/2016 old blood in stomach, no direct bleeding source Syncope/tachycardia due to above NSTEMI- on ASA and Brilinta prior to admission. Recent history of PEA arrest Chronic systolic CHF CMP EF 25% s/p AICD ASHD COPD PLAN RESUME BRILINTA WHEN OK WITH GI Transfuse with lasix Resume statin Continue Coreg with hold parameters Assessment and plan discussed with Dr Wilkins. (Shonda Tim) Assessment and Plan Slow improvement Ok to d/c opn Plavix , worried that Brilinta being more powerful may have contributed to GI bleed (Roxanna Wilkins MD) Shonda Tim Aug 16, 2016 15:42 Roxanna Wilkins MD Aug 17, 2016 13:58
[2016-08-16] MEDS: LATANOPROST 0.005% OPHT SOLN 2.5 ML BTL RIGHT EYE SCH (20:24)
[2016-08-17] VITALS (21 sets, daily range): BP systolic 125–153; BP diastolic 44–85; PULSE 90–106; RESP 18; TEMP 97.8–98.3; O2SAT 95–99
[2016-08-17 06:09] LABS: AUTOMATED NEUTROPHIL # 11.2 TH/MM3 (1.8-7.7); BASOPHIL # 0.2 TH/MM3 (0-0.2); EOSINOPHIL # 0.8 TH/MM3 (0-0.4); EOSINOPHIL % 5.1 % (0.0-4.0); HEMATOCRIT 26.7 % (39.0-51.0); LYMPH % 13.4 % (9.0-44.0); LYMPHOCYTE # 2.1 TH/MM3 (1.0-4.8); MEAN CELL VOLUME 94.5 FL (80.0-100.0); MEAN CORPUSCULAR HEMOGLOBIN 31.1 PG (27.0-34.0); MEAN CORPUSCULAR HGB CONC 32.9 % (32.0-36.0); MONO % 8.1 % (0.0-8.0); NEUT % 72.4 % (16.0-70.0); PLATELET COUNT 393 TH/MM3 (150-450); RED BLOOD COUNT 2.82 MIL/MM3 (4.50-5.90); RED CELL DISTRIBUTION WIDTH 17.3 % (11.6-17.2); WHITE BLOOD COUNT 15.5 TH/MM3 (4.0-11.0)
[2016-08-17] MEDS: INSULIN ASPART SUPPLEMENTAL SCALE SQ SCH ×3 (06:11→16:30)
[2016-08-17 06:17] LABS: HEMO FLAGS AUTO DIFF
[2016-08-17 06:26] LABS: BICARBONATE 25.4 MEQ/L (21.0-32.0); POTASSIUM 4.4 MEQ/L (3.5-5.1)
[2016-08-17] MEDS: CARVEDILOL 6.25 MG TAB PO SCH (08:25)
[2016-08-17] MEDS: SODIUM CHLORIDE 0.9% FLUSH 10 ML FLUSH IV FLUSH SCH (08:27)
[2016-08-17] MEDS ORDERED: PRAVASTATIN SOD 40 MG TAB PO SCH (09:00)
[2016-08-17 09:50] LABS: BANDS 15 % (0-6); BASOPHILS 2 % (0-2); EOSINOPHILS 1 % (0-4); METAMYELOCYTES 2 % (0-1); NEUTROPHIL # MANUAL DIFF 12.9 TH/MM3 (1.8-7.7); OVALOCYTES 1+ (NORMAL); PLATELET ESTIMATE SMEAR NORMAL (NORMAL); PLATELET MORPHOLOGY NORMAL (NORMAL); POLYS (SEG NEUTROPHILS) 66 % (16-70); SCAN/DIFF FINAL DIFF MANUAL; WBC DIFF SAMPLE 100
--- NOTE | 2016-08-17 10:20 | HHI.GIFU ---
Subjective Remarks Pt resting comfortably in bed. Denies abdominal pain other than rib pain. Denies n/v. Objective Vitals I&O Vital Signs Date Time Temp Pulse Resp B/P Pulse Ox O2 Delivery O2 Flow Rate FiO2 08/17/16 10:03 106 08/17/16 09:09 101 08/17/16 08:59 99 08/17/16 07:32 103 08/17/16 07:32 97 Room Air 08/17/16 07:32 98.2 103 18 128/85 97 08/17/16 06:28 104 08/17/16 05:10 105 08/17/16 04:21 106 08/17/16 03:51 98.3 102 129/60 95 08/17/16 03:08 Room Air 21 08/17/16 03:00 99 08/17/16 02:00 99 08/17/16 01:00 100 08/17/16 00:44 97.8 104 129/53 96 08/17/16 00:00 100 08/16/16 23:12 Room Air 21 08/16/16 23:00 97 08/16/16 22:00 102 08/16/16 21:33 96 21 08/16/16 21:00 100 08/16/16 20:00 100 08/16/16 19:00 97.9 103 127/58 96 08/16/16 19:00 104 08/16/16 19:00 Room Air 08/16/16 18:09 103 08/16/16 17:00 95 08/16/16 16:09 Room Air 08/16/16 16:09 98.6 101 18 122/51 96 08/16/16 16:00 106 08/16/16 15:00 106 08/16/16 14:29 98.6 99 18 118/52 96 08/16/16 14:07 98.8 102 18 114/47 99 08/16/16 14:00 102 08/16/16 13:00 100 08/16/16 12:00 107 08/16/16 11:46 98.5 107 18 115/45 100 08/16/16 11:26 98.4 108 18 130/48 97 08/16/16 11:26 Room Air 08/16/16 11:00 106 08/16/16 10:48 98.4 108 18 129/41 97 I/O 08/16/16 08/16/16 08/16/16 08/17/16 08/17/16 08/17/16 07:00 15:00 23:00 07:00 15:00 23:00 Intake Total 1060 ml 4429 ml 940 ml Output Total 1550 ml 2900 ml 1400 ml Balance -490 ml 1529 ml -460 ml Intake Oral 360 ml 670 ml 240 ml IV Total 700 ml 3099 ml 700 ml Packed Cells 660 ml Output Urine Total 1550 ml 2900 ml 1400 ml # Bowel Movements 0 Laboratory Laboratory Tests Test 08/17/16 05:14 White Blood Count 15.5 Red Blood Count 2.82 Hemoglobin 8.8 Hematocrit 26.7 Mean Corpuscular Volume 94.5 Mean Corpuscular Hemoglobin 31.1 Mean Corpuscular Hemoglobin 32.9 Concent Red Cell Distribution Width 17.3 Platelet Count 393 Mean Platelet Volume 8.1 Neutrophils (%) (Auto) 72.4 Lymphocytes (%) (Auto) 13.4 Monocytes (%) (Auto) 8.1 Eosinophils (%) (Auto) 5.1 Basophils (%) (Auto) 1.0 Neutrophils # (Auto) 11.2 Lymphocytes # (Auto) 2.1 Monocytes # (Auto) 1.2 Eosinophils # (Auto) 0.8 Basophils # (Auto) 0.2 CBC Comment AUTO DIFF Differential Total Cells 100 Counted Neutrophils % (Manual) 66 Band Neutrophils % 15 Lymphocytes % 9 Monocytes % 5 Eosinophils % 1 Basophils % 2 Neutrophils # (Manual) 12.9 Metamyelocytes 2 Differential Comment FINAL DIFF MANUAL Platelet Estimate NORMAL Platelet Morphology Comment NORMAL Ovalocytes 1+ Sodium Level 148 Potassium Level 4.4 Chloride Level 115 Carbon Dioxide Level 25.4 Anion Gap 8 Blood Urea Nitrogen 70 Creatinine 1.58 Estimat Glomerular Filtration 44 Rate Random Glucose 158 Calcium Level 8.9 Magnesium Level 2.0 Date/Time Procedure Status Source Growth 08/13/16 15:40 Urine Culture - Final Complete Urine Random Urine 50-100,000 CFU/ML MIXED GRAM POSITIVE... Imaging Last Impressions Head CT 08/14/16 0000 Signed Impressions: Service Date/Time: Sunday, August 14, 2016 22:45 - CONCLUSION: No acute disease. Nando Welsh Jr., MD Chest X-Ray 08/13/16 0000 Signed Impressions: Service Date/Time: Saturday, August 13, 2016 15:37 - CONCLUSION: Interval removal of NG tube and ET tube. Near-complete clearance of the lungs. Scott Leblanc MD Carotid Artery Ultrasound 08/13/16 0000 Signed Impressions: Service Date/Time: Saturday, August 13, 2016 19:57 - CONCLUSION: Mild bilateral carotid plaque with hemodynamic profile characteristic of less than 50%% stenosis. Nando Reeves MD Physical Exam GENERAL: color good HEENT: EOMI; normocephalic; atraumatic; no jaundice. NECK: Neck is supple, CHEST: Chest is clear to auscultation and percussion. CARDIAC: Regular rate and rhythm with no murmur gallop or rubs. ABDOMEN: Soft, obese, nontender; no hepatosplenomegaly; bowel sounds are present in all four quadrants. EXTREMITIES: No clubbing, cyanosis, or edema. SKIN: Normal; no rash; no jaundice. 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 Assessment and Plan Plan ASSESSMENT: - possible upper GI bleed, EGD 08/15/16----> LA class B esophagitis, old blood, no clear bleeding areas. Per Dr. Maria pt not good candidate for anesthesia to do colonoscopy. - Anemia, 8.8, 26.7. HH stable PLAN: - continue to monitor HH - transfuse as needed - continue PPI This patient was examined by myself and Dr. Manning and this note is written on his behalf Keena Madsen Aug 17, 2016 10:20
[2016-08-17] MEDS: PANTOPRAZOLE INJ 80 MG in SODIUM CHLORIDE 0.9% INJ 100 ML IV SCH (11:28)
--- NOTE | 2016-08-17 12:42 | PD.CARD.PN ---
Subjective Subjective Remarks The appears much better compared to admission. Less pale. Remains hemodynamically stable. No evidence of recurrent bleed. No currently on ASS or Brilinta. Continues to complain of chest wall pain from compressions (Shonda Tim) Objective Vital Signs / I&O Vital Signs Date Time Temp Pulse Resp B/P Pulse Ox O2 Delivery O2 Flow Rate FiO2 08/17/16 12:14 100 08/17/16 11:11 98.0 103 18 125/44 99 08/17/16 11:11 103 08/17/16 11:11 99 Room Air 08/17/16 10:03 106 08/17/16 09:09 101 08/17/16 08:59 99 08/17/16 07:32 103 08/17/16 07:32 97 Room Air 08/17/16 07:32 98.2 103 18 128/85 97 08/17/16 06:28 104 08/17/16 05:10 105 08/17/16 04:21 106 08/17/16 03:51 98.3 102 129/60 95 08/17/16 03:08 Room Air 21 08/17/16 03:00 99 08/17/16 02:00 99 08/17/16 01:00 100 08/17/16 00:44 97.8 104 129/53 96 08/17/16 00:00 100 08/16/16 23:12 Room Air 21 08/16/16 23:00 97 08/16/16 22:00 102 08/16/16 21:33 96 21 08/16/16 21:00 100 08/16/16 20:00 100 08/16/16 19:00 97.9 103 127/58 96 08/16/16 19:00 104 08/16/16 19:00 Room Air 08/16/16 18:09 103 08/16/16 17:00 95 08/16/16 16:09 Room Air 08/16/16 16:09 98.6 101 18 122/51 96 08/16/16 16:00 106 08/16/16 15:00 106 08/16/16 14:29 98.6 99 18 118/52 96 08/16/16 14:07 98.8 102 18 114/47 99 08/16/16 14:00 102 08/16/16 13:00 100 I/O 08/16/16 08/16/16 08/16/16 08/17/16 08/17/16 08/17/16 07:00 15:00 23:00 07:00 15:00 23:00 Intake Total 1060 ml 4429 ml 940 ml Output Total 1550 ml 2900 ml 1400 ml Balance -490 ml 1529 ml -460 ml Intake Oral 360 ml 670 ml 240 ml IV Total 700 ml 3099 ml 700 ml Packed Cells 660 ml Output Urine Total 1550 ml 2900 ml 1400 ml # Bowel Movements 0 Physical Exam GENERAL: Elderly male, in bed, NAD, more talkative SKIN: Warm and dry. HEAD: Normocephalic. EYES: No scleral icterus. No injection or drainage. NECK: Supple, trachea midline. CARDIOVASCULAR: Tachycardia RESPIRATORY: Breath sounds equal bilaterally. No accessory muscle use. Nasal cannula GASTROINTESTINAL: Abdomen soft, non-tender, nondistended. MUSCULOSKELETAL: No cyanosis, or edema. BACK: Nontender without obvious deformity. No CVA tenderness. Laboratory Laboratory Tests Test 08/17/16 05:14 White Blood Count 15.5 TH/MM3 Red Blood Count 2.82 MIL/MM3 Hemoglobin 8.8 GM/DL Hematocrit 26.7 % Mean Corpuscular Volume 94.5 FL Mean Corpuscular Hemoglobin 31.1 PG Mean Corpuscular Hemoglobin 32.9 % Concent Red Cell Distribution Width 17.3 % Platelet Count 393 TH/MM3 Mean Platelet Volume 8.1 FL Neutrophils (%) (Auto) 72.4 % Lymphocytes (%) (Auto) 13.4 % Monocytes (%) (Auto) 8.1 % Eosinophils (%) (Auto) 5.1 % Basophils (%) (Auto) 1.0 % Neutrophils # (Auto) 11.2 TH/MM3 Lymphocytes # (Auto) 2.1 TH/MM3 Monocytes # (Auto) 1.2 TH/MM3 Eosinophils # (Auto) 0.8 TH/MM3 Basophils # (Auto) 0.2 TH/MM3 CBC Comment AUTO DIFF Differential Total Cells 100 Counted Neutrophils % (Manual) 66 % Band Neutrophils % 15 % Lymphocytes % 9 % Monocytes % 5 % Eosinophils % 1 % Basophils % 2 % Neutrophils # (Manual) 12.9 TH/MM3 Metamyelocytes 2 % Differential Comment FINAL DIFF MANUAL Platelet Estimate NORMAL Platelet Morphology Comment NORMAL Ovalocytes 1+ Sodium Level 148 MEQ/L Potassium Level 4.4 MEQ/L Chloride Level 115 MEQ/L Carbon Dioxide Level 25.4 MEQ/L Anion Gap 8 MEQ/L Blood Urea Nitrogen 70 MG/DL Creatinine 1.58 MG/DL Estimat Glomerular Filtration 44 ML/MIN Rate Random Glucose 158 MG/DL Calcium Level 8.9 MG/DL Magnesium Level 2.0 MG/DL (Shonda Tim) Assessment and Plan Assessment and Plan ASSESSMENT: GI bleed/symptomatic anemia- EGD 08/15/2016 old blood in stomach, no direct bleeding source. Unable to complete colonoscopy Syncope/tachycardia due to above NSTEMI- on ASA and Brilinta prior to admission. Recent history of PEA arrest Chronic systolic CHF CMP EF 25% s/p AICD ASHD COPD PLAN CHANGE BRILINTA TO PLAVIX ON DISCHARGE. Resume ASA. Brilinta could be cause of his GI bleed. Continue BB and statin. Unable to tolerate Aldactone or LEONEL/ARB at this time due to renal insufficiency Unable to follow patient in the office outpatient. Will need to establish with a local toolman for followup after discharge Assessment and plan discussed with Dr Wilkins. (Shonda Tim) Assessment and Plan Suspect that Plavix might be less likely to cause GI Bleed. (Roxanna Wilkins MD) Shonda Tim Aug 17, 2016 12:42 Roxanna Wilkins MD Aug 17, 2016 14:02
[2016-08-17] MEDS ORDERED: PLAV75TA29 PO (13:27)
[2016-08-17] MEDS: SODIUM CHLOR 0.45% 1000 ML INJ 1,000 ML IV SCH (17:50)
--- NOTE | 2016-08-17 18:27 | HHI.PR ---
Subjective Remarks Seen earlier today. No chest pain, diaphoresis, sob, denies n/v/d/c. Had BM yesterday. Feels better. Objective Vitals Vital Signs Date Time Temp Pulse Resp B/P Pulse Ox O2 Delivery O2 Flow Rate FiO2 08/17/16 18:02 102 08/17/16 17:53 103 08/17/16 16:36 101 08/17/16 15:22 98.0 104 18 153/60 98 08/17/16 15:22 98 Room Air 08/17/16 15:22 90 08/17/16 14:12 103 08/17/16 13:25 94 08/17/16 12:14 100 08/17/16 11:11 98.0 103 18 125/44 99 08/17/16 11:11 103 08/17/16 11:11 99 Room Air 08/17/16 10:03 106 08/17/16 09:09 101 08/17/16 08:59 99 08/17/16 07:32 103 08/17/16 07:32 97 Room Air 08/17/16 07:32 98.2 103 18 128/85 97 08/17/16 06:28 104 08/17/16 05:10 105 08/17/16 04:21 106 08/17/16 03:51 98.3 102 129/60 95 08/17/16 03:08 Room Air 21 08/17/16 03:00 99 08/17/16 02:00 99 08/17/16 01:00 100 08/17/16 00:44 97.8 104 129/53 96 08/17/16 00:00 100 08/16/16 23:12 Room Air 21 08/16/16 23:00 97 08/16/16 22:00 102 08/16/16 21:33 96 21 08/16/16 21:00 100 08/16/16 20:00 100 08/16/16 19:00 97.9 103 127/58 96 08/16/16 19:00 104 08/16/16 19:00 Room Air I/O 08/16/16 08/16/16 08/16/16 08/17/16 08/17/16 08/17/16 07:00 15:00 23:00 07:00 15:00 23:00 Intake Total 1060 ml 4429 ml 940 ml 960 ml Output Total 1550 ml 2900 ml 1400 ml 1400 ml Balance -490 ml 1529 ml -460 ml -440 ml Intake Oral 360 ml 670 ml 240 ml 960 ml IV Total 700 ml 3099 ml 700 ml Packed Cells 660 ml Output Urine Total 1550 ml 2900 ml 1400 ml 1400 ml # Bowel Movements 0 Result Diagram: 08/17/16 0514 08/17/16 0514 Imaging Last Impressions Head CT 08/14/16 0000 Signed Impressions: Service Date/Time: Sunday, August 14, 2016 22:45 - CONCLUSION: No acute disease. Nando Welsh Jr., MD Chest X-Ray 08/13/16 0000 Signed Impressions: Service Date/Time: Saturday, August 13, 2016 15:37 - CONCLUSION: Interval removal of NG tube and ET tube. Near-complete clearance of the lungs. Scott Leblanc MD Carotid Artery Ultrasound 08/13/16 0000 Signed Impressions: Service Date/Time: Saturday, August 13, 2016 19:57 - CONCLUSION: Mild bilateral carotid plaque with hemodynamic profile characteristic of less than 50%% stenosis. Nando Reeves MD Objective Remarks GENERAL: This is a pale appearing, confused elderly male patient, in no apparent distress. SKIN: No rashes, ecchymoses or lesions. Cool and dry. Appears pale. HEAD: Atraumatic. Normocephalic. EYES: No scleral icterus. No injection or drainage. ENT: Nose without bleeding, purulent drainage. Mucous membranes appear dry. NECK: Trachea midline. No JVD or lymphadenopathy. CARDIOVASCULAR: Regular rate and rhythm without murmurs, gallops, or rubs. RESPIRATORY: Clear to auscultation. Breath sounds equal bilaterally. No wheezes , rales, or rhonchi. GASTROINTESTINAL: Abdomen soft, non-tender, nondistended. No guarding. MUSCULOSKELETAL: Extremities without clubbing, cyanosis, or edema. No calf tenderness. NEUROLOGICAL: Awake and alert. Motor and sensory grossly within normal limits. Normal speech. Procedures EGD A/P Problem List: (1) GI bleed ICD Code: K92.2 Status: Acute (2) Syncope ICD Code: R55 Status: Acute Assessment and Plan Mr. Damico is a 70-year-old male who presented to the emergency room on 08/13/2016 after experiencing a syncopal episode at [facility]. 70 y/o male with recent NSTEMI, on aspirin and Brilinta who was brought to ER with syncope and GI bleed while at [facility]. Likely acute on chronic GI bleed with syncopal episode. - GI consulted and following - Initial hemoglobin 9.4 - will recheck H&H stat and transfuse if indicated - Consult gastroenterology to evaluate for GI bleed - Carotid ultrasound performed showing mild bilateral carotid plaque with hemodynamic profile characteristic of less than 50% stenosis - Continuous cardiac telemetry - Monitor vital signs every 4 hours - Hold antiplatelets and blood pressure medications for now - S/P EGD: LA Class B esophagitis - Gastritis in the gastric antrum. Old blood in the stomach but no evidence of active bleeding /source of bleeding - Continue PPI - HGB at 7.6 complicated pt. transfuse 2 U PRBC today. Monitor H/H. [place] HGB > 9 in cardiac patient. Will pretreat as well Acute on chronic renal failure likely secondary to dehydration and decreased perfusion related to anemia and GI bleed. Kidney function slowly improving Hypernatremia Na 150 on 08/16. Change fluids to 1/2 NS at 60cc. Monitor Na trend - BUN 186, creatinine 2.67, estimated GFR 24 - Gentle IV fluid hydration with normal saline at 50 cc per hour - avoid nephrotoxins - recheck BMP and follow trends in renal indices Recent PEA cardiac arrest and history of congestive heart failure now here with GI bleed on Brilinta and aspirin - Consult cardiology - patient saw Dr. Love during last hospitalization - ejection fraction of 25% on echocardiogram dated 08/03/2016 - cautious IVF hydration - monitor strict I and Os - Cardiology consulted, cleared patient for EGD Generalized Debility following last hospitalization - consult PT and OT to prevent further weakness/debility Type 2 diabetes mellitus - Accu-Cheks before meals and at bedtime with low-dose sliding scale NovoLog coverage - Hypoglycemia treatment protocol ordered - Monitor trends and blood glucose and adjust treatments as indicated DVT prophylaxis - SCDs GI and cardiology consulted. Discussed Condition With patient, nurse Plan to DC to SNF. Problem Qualifiers (1) GI bleed: Qualified Code: K92.1 - Gastrointestinal hemorrhage with melena (2) Syncope: Qualified Code: R55 - Syncope, unspecified syncope type Aliza Morse MD Aug 17, 2016 18:27
== END 2016-08-17 19:13 | DRG 377 ==
LOC: NEPC 15:08 → NEDA 17:18 → HCIS 23:21
PROVIDERS: ADMIT Hospitalist; ATTEND Hospitalist
PROC: 30233N1 Transfusion of Nonautologous Red Blood Cells into Peripheral Vein, Percutaneous Approach (ICD-10-PCS; 2016-08-14)
PROC: 0DJ08ZZ Inspection of Upper Intestinal Tract, Via Natural or Artificial Opening Endoscopic (ICD-10-PCS; principal; 2016-08-15 12:53)
DX: K92.2 Gastrointestinal hemorrhage, unspecified (principal); I21.3 ST elevation (STEMI) myocardial infarction of unspecified site; N17.9 Acute kidney failure, unspecified; E87.0 Hyperosmolality and hypernatremia; I50.22 Chronic systolic (congestive) heart failure; D62 Acute posthemorrhagic anemia; J44.9 Chronic obstructive pulmonary disease, unspecified; R55 Syncope and collapse; E11.9 Type 2 diabetes mellitus without complications; E03.9 Hypothyroidism, unspecified; I25.5 Ischemic cardiomyopathy; I12.9 Hypertensive chronic kidney disease with stage 1 through stage 4 chronic kidney disease, or unspecified chronic kidney disease; N18.9 Chronic kidney disease, unspecified; Z79.82 Long term (current) use of aspirin; I25.10 Atherosclerotic heart disease of native coronary artery without angina pectoris; Z95.1 Presence of aortocoronary bypass graft; Z95.810 Presence of automatic (implantable) cardiac defibrillator; Z79.4 Long term (current) use of insulin; Z79.02 Long term (current) use of antithrombotics/antiplatelets; E86.0 Dehydration; K29.70 Gastritis, unspecified, without bleeding; K20.9 Esophagitis, unspecified; E78.5 Hyperlipidemia, unspecified; H40.9 Unspecified glaucoma; H53.40 Unspecified visual field defects; Z89.422 Acquired absence of other left toe(s); R53.81 Other malaise; R07.81 Pleurodynia
CPT/HCPCS: 36430; 70450; 71010; 80048; 80053; 81001; 82550; 82948; 83735; 83880; 84484; 85007; 85014; 85018; 85025; 85027; 85610; 85730; 86850; 86900; 86901; 86920; 87086; 93005; 93880; 96365; 96375; C9113; J0696; J1815; J1940; J2250; J2370; J2405; J7030; J7050; P9016

== ENCOUNTER 2016-08-21 18:44 | Inpatient (IN) | payer MEDICARE, MEDICAID ==
[~2016-08-21] VITALS: Ht 185.4 cm; Wt 95.7 kg
[~2016-08-21 18:44] MED LIST changes: -BRIL90TA PO; +COLA100C3 PO; +FERR325T PO; +HUMALOG SQ; +NYST1000 SWISH-SWAL; +PANT40TA3 PO; +PLAV75TA29 PO
[2016-08-21 18:59] VITALS: BP 113/58; PULSE 107; RESP 20; TEMP 98.5; O2SAT 95
[2016-08-21] MEDS ORDERED: oxyCODONE/ACETAMINOPHEN 5 MG/325 MG TAB PO ONE (19:30)
[2016-08-21] MEDS ORDERED: SODIUM CHLORIDE 0.9% FLUSH 10 ML FLUSH IVF PRN (19:30)
[2016-08-21] MEDS ORDERED: SODIUM CHLORID 0.9% 500 ML INJ 500 ML IV ONE (19:30)
--- NOTE | 2016-08-21 19:54 | PD ---
HPI Chief Complaint: Pain: Acute or Chronic Time Seen by Provider: 19:20 Travel History International Travel<30 days: No Contact w/Intl Traveler<30days: No History of Present Illness HPI Patient is a 70-year-old male who is alert and oriented 3 who presents to emergency room with complaints of right-sided rib pain. Patient reports that he had a cardiac arrest on 08/04/16 and did have CRP with ROSC. Reports that since then, he has had increased pain to the right side of his rib. Patient reports that every time he moves, patient has increased pain to his right side of his rib. Patient reports that he currently resides at [facility], reports that when he complained of this pain, they were concerned the patient was having cardiac chest pain. Patient reports that he is not having any chest pain at this time. Patient reports that his pain is from his cardiac arrest back in July, reports that the pain is always the same. Reports the pain is worse today. Patient denies chest pain, shortness of breath this time. Patient reports chronic right-sided rib pain. Patient does have history of hypothyroidism, diabetes mellitus, COPD, coronary disease, ischemic cardiomyopathy with an EF of 25% on echocardiogram dated 2016. Chronic kidney disease, CHF, PEA arrest on August 04, 2016. Patient reports that the last time he complains of his rib pain, [facility] and ended up having a syncopal episode and was admitted to the hospital on August 13, 2016 for GI bleed as well as syncope. PFSH Past Medical History Hx Anticoagulant Therapy: Yes Autoimmune Disease: No Heart Rhythm Problems: Yes Cancer: No Cardiovascular Problems: Yes High Cholesterol: Yes Chest Pain: Yes Congestive Heart Failure: Yes COPD: Yes Diabetes: Yes Patient Takes Glucophage: No Diminished Hearing: No Endocrine: Yes Genitourinary: Yes Hiatal Hernia: Yes Immune Disorder: No Musculoskeletal: Yes Psychiatric: No Respiratory: Yes Myocardial Infarction: Yes Thyroid Disease: Yes Tetanus Vaccination: Unknown Past Surgical History AICD: Yes Cardiac Surgery: Yes (PACEMAKER DEFIB) Coronary Artery Bypass Graft: Yes Eye Surgery: Yes Pacemaker: Yes (AICD) Other Surgery: Yes (left toe amputation) Social History Alcohol Use: No Tobacco Use: No (QUIT 40 yrs ago) Substance Use: No Allergies-Medications (Allergen,Severity, Reaction): Coded Allergies: Iodinated Contrast Media (Verified Allergy, Unknown, 08/02/16) Sulfa (Verified Allergy, Unknown, 08/02/16) Reported Meds & Prescriptions Reported Meds & Active Scripts Active Plavix (Clopidogrel Bisulfate) 75 Mg Tab 75 Mg PO DAILY Colace (Docusate Sodium) 100 Mg Cap 100 Mg PO BID Ferrous Sulfate 325 Mg Tab 325 Mg PO DAILY Pantoprazole (Pantoprazole Sodium) 40 Mg Tab 40 Mg PO DAILY Hydrocodone-Acetaminophen 5-325 mg Tab 1 Tab PO Q4H PRN Furosemide 20 Mg Tab 20 Mg PO DAILY Reported Ascorbic Acid 500 Mg Tab 500 Mg PO BID Brilinta (Ticagrelor) 90 Mg Tab 90 Mg PO BID Multiple Vitamin 1 Tab 1 Tab PO DAILY Omeprazole 20 Mg Tab 20 Mg PO DAILY Magnesium Oxide 500 Mg Tab 500 Mg PO DAILY Nystatin Liq 100,000 unit/ml Susp 6 Ml SWISH-SWAL QID Humalog Inj (Insulin Human Lispro) 1,000 Unit/10 Ml Vial 2-10 Units SQ ACHS Max dose at bedtime:( )units; sugars < 70,(0)units; sugars 150-199,(2)units; sugars 200-249,(4)units; sugars 250-299,(7)units; sugars 300-349,(10)units; sugars more than 349,(12)units. Travatan Z Opth Drops (Travoprost) 0.004 % Soln 1 Drop RIGHT EYE HS Carvedilol 6.25 Mg Tab 6.25 Mg PO BID Zocor (Simvastatin) 20 Mg Tab 20 Mg PO HS Nitroglycerin SL (Nitroglycerin) 0.4 Mg Subl 0.4 Mg SL DIRECTED PRN ONE TABLET UNDER THE TONGUE NEEDED FOR CHEST PAIN, MAY REPEAT EVERY FIVE MINUTES FOR A TOTAL OF 3 DOSES OR CALL 911 IF NO RELIEF Levothyroxine (Levothyroxine Sodium) 50 Mcg Tab 50 Mcg PO DAILY Levemir Flextouch Pen Inj (Insulin Detemir) 300 unit/3 ML Pen 40 Units SQ HS Isosorbide Mononitrate ER (Isosorbide Mononitrate) 30 Mg Adriana 30 Mg PO DAILY Azopt Opth Drops (Brinzolamide) 1% Susp 1 Drop RIGHT EYE BID Combigan Opth Drops (Brimonidine-Timolol Opth Drops) 0.2-0.5% Soln 1 Drop RIGHT EYE Q12HR Aspirin EC Low Dose (Aspirin) 81 Mg Tabec 81 Mg PO DAILY Refresh Opth Drops (Polyvinyl Alcohol-Povidone Opth Drops) 1.4-0.6% Drops 1 Drop EACH EYE TID PRN Review of Systems General / Constitutional: No: Fever Eyes: No: Visual changes HENT: No: Headaches Cardiovascular: Positive: Other (right-sided rib pain), No: Chest Pain or Discomfort Respiratory: No: Shortness of Breath Gastrointestinal: No: Abdominal Pain Genitourinary: No: Dysuria Musculoskeletal: No: Pain Skin: No Rash Neurologic: No: Weakness Psychiatric: No: Depression Endocrine: No: Polydipsia Hematologic/Lymphatic: No: Easy Bruising Physical Exam Narrative GENERAL: No acute distress, nontoxic SKIN: Focused skin assessment warm/dry. HEAD: Atraumatic. Normocephalic. EYES: Pupils equal and round. No scleral icterus. No injection or drainage. ENT: No nasal bleeding or discharge. Mucous membranes pink and moist. NECK: Trachea midline. No JVD. CARDIOVASCULAR: Tachycardic. No murmur appreciated. Patient with reproducible pain to the right lateral lower ribs RESPIRATORY: No accessory muscle use. Clear to auscultation. Breath sounds equal bilaterally. GASTROINTESTINAL: Abdomen soft, non-tender, nondistended. Hepatic and splenic margins not palpable. MUSCULOSKELETAL: No obvious deformities. No clubbing. No cyanosis. No edema. NEUROLOGICAL: Awake and alert. Normal speech. PSYCHIATRIC: Appropriate mood and affect; insight and judgment normal. Data Data Last Documented VS Vital Signs Date Time Temp Pulse Resp B/P Pulse Ox O2 Delivery O2 Flow Rate FiO2 08/21/16 22:16 100 28 115/70 96 Nasal Cannula 2 08/21/16 18:59 98.5 Orders Electrocardiogram (08/21/16 19:21) Complete Blood Count With Diff (08/21/16 19:21) Comprehensive Metabolic Panel (08/21/16 19:21) Chest, Single Ap (08/21/16 19:21) Ecg Monitoring (08/21/16 19:21) Iv Access Insert/Monitor (08/21/16 19:21) Oximetry (08/21/16 19:21) Sodium Chloride 0.9% Flush (Ns Flush) (08/21/16 19:30) Sodium Chlorid 0.9% 500 Ml Inj (Ns 500 M (08/21/16 19:30) Oxycodone-Acetamin 5-325 Mg (Percocet (08/21/16 19:30) Ckmb (Isoenzyme) Profile (08/21/16 21:27) Troponin I (08/21/16 21:27) Aspirin Chew (Aspirin Chew) (08/22/16 09:00) Aspirin Chew (Aspirin Chew) (08/21/16 22:00) Labs Laboratory Tests Test 08/21/16 19:30 White Blood Count 13.6 TH/MM3 Red Blood Count 2.75 MIL/MM3 Hemoglobin 8.6 GM/DL Hematocrit 25.8 % Mean Corpuscular Volume 94.0 FL Mean Corpuscular Hemoglobin 31.3 PG Mean Corpuscular Hemoglobin 33.2 % Concent Red Cell Distribution Width 16.3 % Platelet Count 474 TH/MM3 Mean Platelet Volume 8.5 FL Neutrophils (%) (Auto) 80.4 % Lymphocytes (%) (Auto) 9.4 % Monocytes (%) (Auto) 6.3 % Eosinophils (%) (Auto) 3.1 % Basophils (%) (Auto) 0.8 % Neutrophils # (Auto) 11.0 TH/MM3 Lymphocytes # (Auto) 1.3 TH/MM3 Monocytes # (Auto) 0.9 TH/MM3 Eosinophils # (Auto) 0.4 TH/MM3 Basophils # (Auto) 0.1 TH/MM3 CBC Comment DIFF FINAL Differential Comment Sodium Level 132 MEQ/L Potassium Level 4.0 MEQ/L Chloride Level 98 MEQ/L Carbon Dioxide Level 25.1 MEQ/L Anion Gap 9 MEQ/L Blood Urea Nitrogen 25 MG/DL Creatinine 1.39 MG/DL Estimat Glomerular Filtration 51 ML/MIN Rate Random Glucose 211 MG/DL Calcium Level 8.5 MG/DL Total Bilirubin 0.4 MG/DL Aspartate Amino Transf 16 U/L (AST/SGOT) Alanine Aminotransferase 15 U/L (ALT/SGPT) Alkaline Phosphatase 81 U/L Total Creatine Kinase 31 U/L Troponin I 0.05 NG/ML Total Protein 7.2 GM/DL Albumin 2.5 GM/DL MDM Medical Decision Making Medical Screen Exam Complete: Yes Emergency Medical Condition: Yes Interpretation(s) EKG at 1937: Paced at 106 bpm, EKG similar to previous EKGs from prior visits Vital Signs Date Time Temp Pulse Resp B/P Pulse Ox O2 Delivery O2 Flow Rate FiO2 08/21/16 18:59 98.5 107 20 113/58 95 Differential Diagnosis Rib fracture, rib strain, rib contusion, ACS, PE, pneumothorax, pneumonia Narrative Course Patient is a 70-year-old male with a significant medical history, presents to emergency room with complaints of right-sided rib pain. Patient reports that he went into cardiac arrest in August 04, 2016, reports that he had CPR forms and did have ROSC. Reports that ever since this episode, he has had pain to his right side of his rib, patient reports that he complained of this pain today at his rehabilitation facility and they were concerned that patient was complaining of chest pain. Patient is alert and oriented 3, patient adamantly denies chest pain. Patient complains of only pain to his right side of his lower lateral ribs, reports the pain has been there for weeks, patient only requesting medication for pain. Overall, patient is nontoxic on evaluation. X-ray of the chest ordered. EKG ordered. We'll check basic labs. Plan to give patient Percocet to see if this helps with his rib pain. Laboratory Tests Test 08/21/16 19:30 White Blood Count 13.6 TH/MM3 (4.0-11.0) Red Blood Count 2.75 MIL/MM3 (4.50-5.90) Hemoglobin 8.6 GM/DL (13.0-17.0) Hematocrit 25.8 % (39.0-51.0) Mean Corpuscular Volume 94.0 FL (80.0-100.0) Mean Corpuscular Hemoglobin 31.3 PG (27.0-34.0) Mean Corpuscular Hemoglobin 33.2 % Concent (32.0-36.0) Red Cell Distribution Width 16.3 % (11.6-17.2) Platelet Count 474 TH/MM3 (150-450) Mean Platelet Volume 8.5 FL (7.0-11.0) Neutrophils (%) (Auto) 80.4 % (16.0-70.0) Lymphocytes (%) (Auto) 9.4 % (9.0-44.0) Monocytes (%) (Auto) 6.3 % (0.0-8.0) Eosinophils (%) (Auto) 3.1 % (0.0-4.0) Basophils (%) (Auto) 0.8 % (0.0-2.0) Neutrophils # (Auto) 11.0 TH/MM3 (1.8-7.7) Lymphocytes # (Auto) 1.3 TH/MM3 (1.0-4.8) Monocytes # (Auto) 0.9 TH/MM3 (0-0.9) Eosinophils # (Auto) 0.4 TH/MM3 (0-0.4) Basophils # (Auto) 0.1 TH/MM3 (0-0.2) CBC Comment DIFF FINAL Differential Comment Sodium Level 132 MEQ/L (136-145) Potassium Level 4.0 MEQ/L (3.5-5.1) Chloride Level 98 MEQ/L (98-107) Carbon Dioxide Level 25.1 MEQ/L (21.0-32.0) Anion Gap 9 MEQ/L (5-15) Blood Urea Nitrogen 25 MG/DL (7-18) Creatinine 1.39 MG/DL (0.60-1.30) Estimat Glomerular Filtration 51 ML/MIN (>89) Rate Random Glucose 211 MG/DL (74-106) Calcium Level 8.5 MG/DL (8.5-10.1) Total Bilirubin 0.4 MG/DL (0.2-1.0) Aspartate Amino Transf 16 U/L (15-37) (AST/SGOT) Alanine Aminotransferase 15 U/L (12-78) (ALT/SGPT) Alkaline Phosphatase 81 U/L (45-117) Total Protein 7.2 GM/DL (6.4-8.2) Albumin 2.5 GM/DL (3.4-5.0) Last Impressions Chest X-Ray 08/21/161920 Signed Impressions: Service Date/Time: Sunday, August 21, 2016 19:40 - CONCLUSION: No evidence of acute cardiopulmonary disease. Scott Austin MD I went to reevaluate patient, patient reports that he did feel better with the Percocet. Patient reports resolution of symptoms at this time. Patient now reports that he has been having intermittent chest pain, "pressure to my chest" since last night. Patient reports that symptoms last for short time and resolve on its own. He does endorse that when he has these symptoms, he does feel short of breath with this. Patient reports that he now remembers having chest pain earlier today along with his right-sided rib pain. Patient currently with no chest pain or rib pain at this time. Labs cardiac enzymes to his studies. Case reviewed with Dr. Mary who accepts pt to service Diagnosis Primary Impression: Chest pain Qualified Code: R07.9 - Chest pain, unspecified type Admitting Information Admitting Physician Requests: Dolores Christiansen DO Aug 21, 2016 19:54
[2016-08-21 19:55] LABS: BASOPHIL # 0.1 TH/MM3 (0-0.2); BASOPHIL % 0.8 % (0.0-2.0); EOSINOPHIL # 0.4 TH/MM3 (0-0.4); EOSINOPHIL % 3.1 % (0.0-4.0); HEMATOCRIT 25.8 % (39.0-51.0); HEMO FLAGS DIFF FINAL; LYMPH % 9.4 % (9.0-44.0); LYMPHOCYTE # 1.3 TH/MM3 (1.0-4.8); MEAN CORPUSCULAR HEMOGLOBIN 31.3 PG (27.0-34.0); MEAN CORPUSCULAR HGB CONC 33.2 % (32.0-36.0); MONO % 6.3 % (0.0-8.0); NEUT % 80.4 % (16.0-70.0); PLATELET COUNT 474 TH/MM3 (150-450); RED BLOOD COUNT 2.75 MIL/MM3 (4.50-5.90); RED CELL DISTRIBUTION WIDTH 16.3 % (11.6-17.2); WHITE BLOOD COUNT 13.6 TH/MM3 (4.0-11.0)
[2016-08-21 20:00] LABS: ANION GAP 9 MEQ/L (5-15); AST (GOT) 16 U/L (15-37); BICARBONATE 25.1 MEQ/L (21.0-32.0); BLOOD UREA NITROGEN 25 MG/DL (7-18); CHLORIDE 98 MEQ/L (98-107); GLOMERULAR FILTRATION RATE 51 ML/MIN (>89); SODIUM (NA) 132 MEQ/L (136-145)
[2016-08-21 20:04] LABS: ALKALINE PHOSPHATASE 81 U/L (45-117); ALT (GPT) 15 U/L (12-78); TOTAL BILIRUBIN ADULT 0.4 MG/DL (0.2-1.0)
--- NOTE | 2016-08-21 20:23 | RADRPT ---
EXAM DATE/TIME: 08/21/2016 19:40 [facility] COMPARISON: 08/13/2016. INDICATIONS : Rib pain. MEDICAL HISTORY : Cardiovascular disease. Renal failure, chronic. Diabetes mellitus type 2. SURGICAL HISTORY : CABG. ENCOUNTER: Initial ACUITY: 1 day PAIN SCORE: 4/10 LOCATION: chest FINDINGS: No infiltrate, effusion or pneumothorax demonstrated. Heart size stable, upper limits of normal. Patient has had previous median sternotomy and CABG. Cardi ac pacer/defibrillator again noted. No gross acute bony abnormality demonstrated. CONCLUSION: No evidence of acute cardiopulmonary disease. Scott Austin MD on August 21, 2016 at 20:21 Board Certified Radiologist. This report was verified electronically.
[2016-08-21] MEDS ORDERED: MAGN500T2 PO (21:33)
[2016-08-21] MEDS ORDERED: OMEP20TA PO (21:44)
[2016-08-21] MEDS ORDERED: MULTTAB67 PO (21:57)
[2016-08-21] MEDS ORDERED: BRIL90TA PO (21:57)
[2016-08-21] MEDS ORDERED: ASPIRIN 81 MG CHEW TAB CHEW ONE (22:00)
[2016-08-21] MEDS ORDERED: ASCO500T PO (22:05)
[2016-08-21 22:16] VITALS: BP 115/70; PULSE 100; RESP 28; O2SAT 96
[2016-08-21] MEDS ORDERED: NALOXONE HCL 0.4 MG/ML AMP IV PRN (23:30)
[2016-08-21] MEDS ORDERED: GLUCAGON 1 MG/ML VIAL OTHER PRN (23:30)
[2016-08-21] MEDS ORDERED: NITROGLYCERIN 0.4 MG SL 25 TABS/BTL SL PRN (23:30)
[2016-08-21] MEDS ORDERED: SODIUM CHLORIDE 0.9% FLUSH 10 ML FLUSH IV FLUSH PRN (23:30)
[2016-08-21] MEDS ORDERED: DEXTROSE 50% IN WATER 50 ML VIAL(D50) IV PUSH PRN (23:30)
[2016-08-21] MEDS ORDERED: POLYVINYL ALC-POVIDONE 1.4/0.6% PF OPTH SOLN 0.4 ML 30 CT EACH EYE PRN (23:30)
[2016-08-22] VITALS (13 sets, daily range): BP systolic 97–154; BP diastolic 56–74; PULSE 54–110; RESP 16–22; TEMP 95.7–98.8; O2SAT 91–97
--- NOTE | 2016-08-22 04:24 | HHI.HP ---
HPI Service [facility] Primary Care Physician Miguel Krueger MD Admission Diagnosis Chest pain Diagnoses: Chief Complaint: R sided rib pain x 3-4 days and SOB Travel History International Travel<30 Days: No Contact w/Intl Traveler <30 Da: No Traveled to Known Affected Are: No History of Present Illness This is a 70-year-old male with a history of hypothyroidism, DM, COPD, coronary artery disease, ischemic cardiomyopathy with ejection fraction of 25% on echocardiogram dated 08/03/2016, chronic kidney disease, congestive heart failure , STEMI, and cardiac arrest on 08/04/2016. On 08/04/16 patient did have CRP with ROSC. Reports that since then, he has had increased pain to the right side of his rib. Patient presents to the ER with complaint of right sided chest pain described as a tightness for the past 3-4 days. Pain worse with taking a deep breath and certain movements. Chest pain associated with SOB. Patient reports that nothing seems to relieve the chest pain. There is no radiation of the chest pain. Patient denies fevers, chills, vomiting or diarrhea, black tarry stool or bright red blood per rectum. 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 thyroid disease diabetes mellitus COPD CAD CKD CHF STEMI Cardiac arrest Past Surgical History Cataract surgery Toe amputation CABG Reported Medications Plavix (Clopidogrel Bisulfate) 75 Mg Tab 75 Mg PO DAILY Colace (Docusate Sodium) 100 Mg Cap 100 Mg PO BID Ferrous Sulfate 325 Mg Tab 325 Mg PO DAILY Pantoprazole (Pantoprazole Sodium) 40 Mg Tab 40 Mg PO DAILY Hydrocodone-Acetaminophen 5-325 mg Tab 1 Tab PO Q4H PRN Furosemide 20 Mg Tab 20 Mg PO DAILY Brilinta (Ticagrelor) 90 Mg Tab 90 Mg PO BID Multiple Vitamin 1 Tab 1 Tab PO DAILY Omeprazole 20 Mg Tab 20 Mg PO DAILY Magnesium Oxide 500 Mg Tab 500 Mg PO DAILY Nystatin Liq 100,000 unit/ml Susp 6 Ml SWISH-SWAL QID Humalog Inj (Insulin Human Lispro) 1,000 Unit/10 Ml Vial 2-10 Units SQ ACHS Max dose at bedtime:( )units; sugars < 70,(0)units; sugars 150-199,(2)units; sugars 200-249,(4)units; sugars 250-299,(7)units; sugars 300-349,(10)units; sugars more than 349,(12)units. Travatan Z Opth Drops (Travoprost) 0.004 % Soln 1 Drop RIGHT EYE HS Carvedilol 6.25 Mg Tab 6.25 Mg PO BID Zocor (Simvastatin) 20 Mg Tab 20 Mg PO HS Nitroglycerin SL (Nitroglycerin) 0.4 Mg Subl 0.4 Mg SL DIRECTED PRN ONE TABLET UNDER THE TONGUE NEEDED FOR CHEST PAIN, MAY REPEAT EVERY FIVE MINUTES FOR A TOTAL OF 3 DOSES OR CALL 911 IF NO RELIEF Levothyroxine (Levothyroxine Sodium) 50 Mcg Tab 50 Mcg PO DAILY Levemir Flextouch Pen Inj (Insulin Detemir) 300 unit/3 ML Pen 40 Units SQ HS Isosorbide Mononitrate ER (Isosorbide Mononitrate) 30 Mg Adriana 30 Mg PO DAILY Azopt Opth Drops (Brinzolamide) 1% Susp 1 Drop RIGHT EYE BID Combigan Opth Drops (Brimonidine-Timolol Opth Drops) 0.2-0.5% Soln 1 Drop RIGHT EYE Q12HR Aspirin EC Low Dose (Aspirin) 81 Mg Tabec 81 Mg PO DAILY Refresh Opth Drops (Polyvinyl Alcohol-Povidone Opth Drops) 1.4-0.6% Drops 1 Drop EACH EYE TID PRN Ascorbic Acid 500 Mg Tab 500 Mg PO BID Allergies: Coded Allergies: Iodinated Contrast Media (Verified Allergy, Unknown, 09/03/16) Sulfa (Verified Allergy, Unknown, 09/03/16) *MDRO Multi-Drug Resistant Organism (Verified Adverse Reaction, Unknown, ) MRSA PCR Screen POSITIVE - 08/25/2016 & 09/04/2016 Active Ordered Medications Current Medications Medications (Trade) Dose Ordered Sig/Jacek Route Start Time Stop Time Status Last Admin (NS Flush) 2 ml UNSCH PRN IV FLUSH 08/21/16 23:30 (NS Flush) 2 ml BID IV FLUSH 08/22/16 09:00 (Narcan Inj) 0.4 mg UNSCH PRN IV 08/21/16 23:30 (Ecotrin Ec) 81 mg DAILY PO 08/22/16 09:00 (Coreg) 6.25 mg BID PO 08/22/16 09:00 (Plavix) 75 mg DAILY PO 08/22/16 09:00 (Colace) 100 mg BID PO 08/22/16 09:00 (Lasix) 20 mg DAILY PO 08/22/16 09:00 ([place] 5-325 Mg) 1 tab Q4H PRN PO 08/21/16 23:30 (Imdur) 30 mg DAILY PO 08/22/16 09:00 (Synthroid) 50 mcg DAILY@06 PO 08/22/16 06:00 (Refresh Classic 1.4-0.6% Pf Opth Soln) 1 drop TID PRN EACH EYE 08/21/16 23:30 (Brilinta) 90 mg BID PO 08/22/16 09:00 Patient Own Medication PT OWN MED: Brinzolamide Opth . BID RIGHT EYE 08/22/16 09:00 Future Hold (Levemir Inj) 40 units HS SQ 08/22/16 21:00 (Mag-Ox) 400 mg DAILY PO 08/22/16 09:00 (Protonix) 20 mg DAILY PO 08/22/16 09:00 (Pravachol) 40 mg HS PO 08/22/16 21:00 (Xalatan 0.005% Opth Soln) 1 drop HS RIGHT EYE 08/22/16 21:00 (Nitrostat Sl) 0.4 mg Q5M PRN SL 08/21/16 23:30 (D50w (Vial) Inj) 25 ml UNSCH PRN IV PUSH 08/21/16 23:30 (Glucagon Inj) 1 mg UNSCH PRN OTHER 08/21/16 23:30 (Alphagan 0.2% Opth Soln) 1 drop Q12HR RIGHT EYE 08/22/16 09:00 (Timoptic 0.5% Opth Soln) 1 drop Q12HR RIGHT EYE 08/22/16 09:00 Physical Exam Vital Signs Vital Signs Date Time Temp Pulse Resp B/P Pulse Ox O2 Delivery O2 Flow Rate FiO2 08/22/16 03:42 97.8 78 16 131/74 91 08/21/16 22:16 100 28 115/70 96 Nasal Cannula 2 08/21/16 18:59 98.5 107 20 113/58 95 Physical Exam GENERAL: This is a well-nourished, well-developed patient, appears uncomfortable with shallow respirations SKIN: No rashes, ecchymoses or lesions. Cool and dry. Pale in appearance HEAD: Atraumatic. Normocephalic. No temporal or scalp tenderness. EYES: Extraocular motions intact. No scleral icterus. No injection or drainage. CARDIOVASCULAR: Regular rate and rhythm without murmurs, gallops, or rubs. RESPIRATORY: Clear to auscultation. Breath sounds equal bilaterally. No wheezes , rales, or rhonchi. GASTROINTESTINAL: Abdomen soft, non-tender, No guarding. MUSCULOSKELETAL: Extremities without clubbing, cyanosis, or edema. No joint tenderness, effusion, or edema noted. No calf tenderness. Negative Homans sign bilaterally. NEUROLOGICAL: Awake and alert. No focal deficits. Motor and sensory grossly within normal limits. 3-4 out of 5 muscle strength in all muscle groups. Normal speech. Laboratory Laboratory Tests Test 08/21/16 08/22/16 19:30 01:55 White Blood Count 13.6 Red Blood Count 2.75 Hemoglobin 8.6 Hematocrit 25.8 Mean Corpuscular Volume 94.0 Mean Corpuscular Hemoglobin 31.3 Mean Corpuscular Hemoglobin 33.2 Concent Red Cell Distribution Width 16.3 Platelet Count 474 Mean Platelet Volume 8.5 Neutrophils (%) (Auto) 80.4 Lymphocytes (%) (Auto) 9.4 Monocytes (%) (Auto) 6.3 Eosinophils (%) (Auto) 3.1 Basophils (%) (Auto) 0.8 Neutrophils # (Auto) 11.0 Lymphocytes # (Auto) 1.3 Monocytes # (Auto) 0.9 Eosinophils # (Auto) 0.4 Basophils # (Auto) 0.1 CBC Comment DIFF FINAL Differential Comment Sodium Level 132 Potassium Level 4.0 Chloride Level 98 Carbon Dioxide Level 25.1 Anion Gap 9 Blood Urea Nitrogen 25 Creatinine 1.39 Estimat Glomerular Filtration 51 Rate Random Glucose 211 Calcium Level 8.5 Total Bilirubin 0.4 Aspartate Amino Transf 16 (AST/SGOT) Alanine Aminotransferase 15 (ALT/SGPT) Alkaline Phosphatase 81 Total Creatine Kinase 31 26 Troponin I 0.05 0.06 Total Protein 7.2 Albumin 2.5 Result Diagram: 08/21/16192908/21/161929 Imaging Last Impressions Chest X-Ray 08/21/161920 Signed Impressions: Service Date/Time: Sunday, August 21, 2016 19:40 - CONCLUSION: No evidence of acute cardiopulmonary disease. Scott Austin MD Assessment and Plan Problem List: (1) Atypical chest pain ICD Code: R07.89 Status: Acute (2) SOB (shortness of breath) ICD Code: R06.02 Status: Acute Assessment and Plan This is a 70-year-old male with a history of hypothyroidism, DM, COPD, coronary artery disease, ischemic cardiomyopathy with ejection fraction of 25% on echocardiogram dated 08/03/2016, chronic kidney disease, congestive heart failure , STEMI, and cardiac arrest on 08/04/2016. 08/04/16 patient did have CRP with ROSC. Reports that since then, he has had increased pain to the right side of his rib. Patient presents to the ER with complaint of right sided chest pain described as a tightness for the past 3-4 days. Pain worse with taking a deep breath and certain movements. Chest pain associated with SOB. Patient is not sure what relieves the chest pain. There is no radiation of the chest pain. Patient denies fevers, chills, vomiting or diarrhea, black tarry stool or bright red blood per rectum. Atypical Chest pain likely related to recent CPR 08/04/2016 serial troponin EKG reviewed and reveals ventricular paced rhythm Anemia hgb 8.6 with generalized weakness Close monitoring of hemoglobin patient has had recent GI bleed 08/13/2016 CAD hyperlipidemia continue Plavix, aspirin and Brilinta continue Imdur Continue simvastatin 20 mg daily at bedtime Continue Coreg chronic CHF EF 25%, does not appear to be in acute exacerbation Continue Coreg, Lasix 20 mg PO daily, Shortness of breath/dyspnea- likely secondary to rib pain Will order d-dimer is d-dimer elevated consider VQ scan, as patient has had multiple recent hospitalizations and appears sedentary Hypothyroidism TSH Continue Synthroid 50 mcg Diabetes mellitus Accu-Cheks before meals at bedtime with low-dose sliding scale insulin coverage DVT prophylaxis await d-dimer results is d-dimer negative will start SCDs Discussed with ER provider, nursing, patient and patient's sister who is at bedside Written by Marlena Dougherty, acting as scribe for Dr. Mary on 08/22/16 at 06: 08. This note was transcribed by scribe [Marlena Dougherty]. I, Dr. Amandeep Mary personally performed the history, physical exam, and medical decision making; and confirmed the accuracy of the information in the transcribed note. Authenticated by Dr. Amandeep Mary on 08/22/16 at 06:08. Marlena Dougherty Aug 22, 2016 04:24 Amandeep Mary MD September 09, 2016 05:12
[2016-08-22 05:36] LABS: AUTOMATED NEUTROPHIL # 8.9 TH/MM3 (1.8-7.7); BASOPHIL # 0.1 TH/MM3 (0-0.2); BASOPHIL % 0.9 % (0.0-2.0); EOSINOPHIL # 0.4 TH/MM3 (0-0.4); EOSINOPHIL % 3.4 % (0.0-4.0); HEMATOCRIT 24.8 % (39.0-51.0); HEMO FLAGS DIFF FINAL; LYMPH % 10.1 % (9.0-44.0); LYMPHOCYTE # 1.2 TH/MM3 (1.0-4.8); MEAN CORPUSCULAR HEMOGLOBIN 31.9 PG (27.0-34.0); MEAN CORPUSCULAR HGB CONC 33.9 % (32.0-36.0); NEUT % 77.6 % (16.0-70.0); PLATELET COUNT 429 TH/MM3 (150-450); RED BLOOD COUNT 2.64 MIL/MM3 (4.50-5.90); RED CELL DISTRIBUTION WIDTH 16.4 % (11.6-17.2); WHITE BLOOD COUNT 11.5 TH/MM3 (4.0-11.0)
[2016-08-22] MEDS: LEVOTHYROXINE SODIUM 50 MCG TAB PO SCH (06:01)
[2016-08-22] MEDS: INSULIN ASPART SUPPLEMENTAL SCALE SQ SCH ×4 (06:04→21:00)
[2016-08-22 06:05] LABS: BICARBONATE 29.1 MEQ/L (21.0-32.0)
[2016-08-22 06:57] LABS: BACTERIA, URINE OCC /hpf; BLOOD, URINE NEG (NEG); COMMENT (UR) CULTURE INDICATED; CULTURE IF INDICATED CULTURE INDICATED; GLUCOSE,URINE NEG (NEG); KETONE, URINE NEG (NEG); MUCUS URINE FEW /lpf (OCC); NITRITE,URINE NEG (NEG); SQUAMOUS EPITHELIAL CELL URINE 2 /hpf (0-5); URINE COLOR YELLOW (YELLW/STRAW)
--- NOTE | 2016-08-22 08:27 | RADRPT ---
EXAM DATE/TIME: 08/22/2016 07:51 [facility] COMPARISON: No previous studies available for comparison. INDICATIONS : Bilateral leg pain. MEDICAL HISTORY : Myocardial infarction. Chronic obstructive pulmonary disease. Hypercholesterolemia. Congestive heart failure. GI bleed. Arthritis. SURGICAL HISTORY : Pacemaker. CABG. Left toe amputation. ENCOUNTER: Initial ACUITY: 1 day PAIN SCORE: 0/10 LOCATION: Bilateral legs. TECHNIQUE: Venous ultrasound of the left and right leg was performed from the inguinal ligament to the proximal calf. Real-time, color Doppler and spectral tracing, compression and augmentation techniques were us ed. FINDINGS: RIGHT LEG: There is normal compressibility of the deep venous system from the inguinal region to the proximal ca lf. No echogenic clot is seen in the lumen of the common femoral, femoral, popliteal, and posterior tibial veins. There is a normal response of the venous system to proximal and distal augmentation an d respiration. LEFT LEG: There is incomplete compressibility of the popliteal and peroneal veins in the left leg. The appearan ce would be consistent with partial recanalization of DVT. The more proximal deep venous structures a re patent. Specifically, the common femoral and superficial femoral veins appear widely patent CONCLUSION: DVT with partial recanalization present in the left popliteal and peroneal veins Scott Leblanc MD on August 22, 2016 at 8:20 Board Certified Radiologist. This report was verified electronically.
[2016-08-22] MEDS ORDERED: TICAGRELOR 90 MG TAB PO SCH (09:00)
[2016-08-22] MEDS ORDERED: NON-FORMULARY DRUG (Brimonidine-Timolol Opth Drops (Combigan Opth Drops) 1 DROP) RIGHT EYE SCH (09:00)
[2016-08-22] MEDS ORDERED: ASPIRIN 81 MG CHEW TAB CHEW SCH (09:00)
[2016-08-22] MEDS: MAGNESIUM OXIDE 400 MG TAB PO SCH (09:20)
[2016-08-22] MEDS: CLOPIDOGREL 75 MG TAB PO SCH (09:20)
[2016-08-22] MEDS: SODIUM CHLORIDE 0.9% FLUSH 10 ML FLUSH IV FLUSH SCH ×2 (09:20→21:24)
[2016-08-22] MEDS: ISOSORBIDE MONONITRATE 30 MG TAB PO SCH (09:21)
[2016-08-22] MEDS: CARVEDILOL 6.25 MG TAB PO SCH ×2 (09:21→21:23)
[2016-08-22] MEDS: ACETAMINOPHEN/HYDROcodone 325 MG/5 MG TAB PO PRN (09:22)
[2016-08-22] MEDS: DOCUSATE SODIUM 100 MG CAP PO SCH ×2 (09:23→21:23)
[2016-08-22] MEDS: PANTOPRAZOLE SOD 20 MG DELAYED RELEASE TAB PO SCH (09:36)
[2016-08-22] MEDS ORDERED: HEPARIN SODIUM - IV 10,000 UNITS/10 ML VIAL IV ONE (10:30)
--- NOTE | 2016-08-22 11:02 | RADRPT ---
EXAM DATE/TIME: 08/22/2016 10:09 [place] COMPARISON: No previous studies available for comparison. INDICATIONS : Right sided chest pain with shortness of breath. DOSE: 8.1 mCi Tc99m MAA IV 1.7 mCi Tc99m DTPA aerosol MEDICAL HISTORY : Hypothyroidism. Cardiovascular disease Chronic obstructive pulmonary disease. Smoking history. SURGICAL HISTORY : Pacemaker. Left toe amputation. ENCOUNTER: Initial ACUITY: 1 day PAIN SCALE: 1/10 LOCATION: Bilateral chest TECHNIQUE: Following five minutes of tidal breathing of DTPA aerosol, planar images of the lungs were performed in eight projections. The patient was then injected with MAA, and eight-view perfusion scan was perf ormed. FINDINGS: There is a heterogeneous pattern of aerosol delivery to the periphery of both lungs characteristic of COPD. No significant focal ventilatory defects are seen. The perfusion lung scan demonstrates a homogenous pattern of uptake in both lungs. No segmental or s ubsegmental defects are seen. CONCLUSION: Low probability of PE. Bala Rosado MD on August 22, 2016 at 10:57 Board Certified Radiologist. This report was verified electronically.
[2016-08-22] MEDS: ASPIRIN EC 81 MG TABEC PO SCH (11:30)
[2016-08-22] MEDS: FUROSEMIDE 20 MG TAB PO SCH (11:30)
[2016-08-22 12:13] LABS: HEMATOCRIT 23.2 % (39.0-51.0); MEAN CELL VOLUME 95.2 FL (80.0-100.0); MEAN CORPUSCULAR HEMOGLOBIN 30.8 PG (27.0-34.0); MEAN CORPUSCULAR HGB CONC 32.3 % (32.0-36.0); PLATELET COUNT 424 TH/MM3 (150-450); RED BLOOD COUNT 2.44 MIL/MM3 (4.50-5.90); RED CELL DISTRIBUTION WIDTH 16.2 % (11.6-17.2); REVIEW FLAG FINAL
[2016-08-22 12:43] LABS: APTT (PATIENT) 30.3 SEC (24.3-30.1); PROTHROMBIN TIME - PATIENT 11.3 SEC (9.8-11.6)
[2016-08-22] MEDS: BRIMONIDINE TARTRATE 0.2% OPHT SOLN 5 ML BTL RIGHT EYE SCH (12:53)
[2016-08-22] MEDS: TIMOLOL MALEATE 0.5% OPHT SOLN 5 ML BTL RIGHT EYE SCH ×2 (12:53→22:10)
[2016-08-22] MEDS: HEPARIN-D5W INJ 250 ML IV SCH (12:58)
[2016-08-22] MEDS ORDERED: HEPARIN SODIUM - IV 10,000 UNITS/10 ML VIAL IV PRN ×2 (16:30)
[2016-08-22 19:47] LABS: APTT (PATIENT) 97.5 SEC (24.3-30.1)
[2016-08-22] MEDS ORDERED: INSULIN DETEMIR 100 UNITS/ML VIAL SQ SCH (21:00)
[2016-08-22] MEDS: PRAVASTATIN SOD 40 MG TAB PO SCH (21:23)
[2016-08-22] MEDS: LATANOPROST 0.005% OPHT SOLN 2.5 ML BTL RIGHT EYE SCH (22:09)
[2016-08-22 22:52] LABS: APTT (PATIENT) 45.4 SEC (24.3-30.1)
--- NOTE | 2016-08-22 23:02 | MB ---
cc: VIJAY STOCK MD DATE OF CONSULTATION 08/22/16 DATE OF 1945 REASON FOR CONSULTATION Anemia and chest pain HISTORY OF PRESENT ILLNESS Thank you for the consultation. A pleasant 70-year-old gentleman who has multiple medical problems including diabetes and COPD. The patient had ischemic cardiomyopathy, recent OR on 08/04 with CPR and resuscitation. The patient also had anemia. He had an upper endoscopy which showed some old blood and esophagitis about a week ago. The patient was sent home, but then he felt that for the last 3-4 days he was having chest tightness, especially to deep breath and the thought was that it could be related to chest compression. The patient looked weak and pale. He denied any nausea or vomiting. No active bright red blood per rectum and no hematemesis, but feels weak and short of breath with dyspnea on exertion, found to have anemia with hemoglobin of 7.4. His baseline before he left was 8.1. PAST MEDICAL HISTORY 1. Myocardial infarction 2. Cardiac arrest a few weeks ago. 3. Chronic kidney disease, 4. Coronary artery disease, 5. Chronic obstructive pulmonary disease 6. Congestive heart failure, 7. Diabetes, 8. Thyroid disease PAST SURGICAL HISTORY 1. Two amputations 2. Cataract surgery 3. Coronary artery bypass graft MEDICATIONS Reviewed in the chart. ALLERGIES IODINE SULFA REVIEW OF SYSTEMS All 12-point negative except HPI. PHYSICAL EXAMINATION GENERAL: Alert, oriented in no acute distress at this time, seems to be short of breath a little bit and agitated. VITAL SIGNS: Stable. No fevers, blood pressure stable. Sat was from the chart between 91-96. HEENT: Pupils round, reactive to light. NECK: Supple. CHEST: Clear to auscultation and percussion. No wheezing or rales but shallow and superficial ABDOMEN: Soft, nondistended, nontender. NEUROLOGIC: Neurologically intact. No deficit and good strength. PSYCHIATRIC Psychologically appropriate. LABORATORY DATA White count 13.0, hemoglobin 7.5, yesterday was 8.6, and platelets 424, INR 1.0. BUN 23, creatinine 1.32. IMAGING STUDIES The patient had lower extremity Doppler which showed DVT on the left side. Lung VQ scan was low probability for pulmonary embolus. ASSESSMENT/PLAN A 70-year-old gentleman with multiple risk factors, coronary artery disease, diabetes, anemia. He has esophagitis. The patient has DVT. He will need to be on anticoagulation. He is very high risk for doing any procedure and there is no sign of active bleeding at this time except the mild drop in his hemoglobin. I had a discussion with Dr. Estrella and we are going to ask cardiology to see the patient. I think also she is asking hematology to help with the DVT risk stratification and possible filter placement. We can do an endoscopy and colonoscopy if there is high suspicion for GI bleed and if cardiology feels that he would be cleared for that. Other option is try to keep him on heparin and, if he does not bleed, then try to treat him for the DVT without endoscopy but if he starts bleeding it can be done at that time. The patient wants to think about it and wait for cardiology's input and, of course, we will wait for hematology input also. We will follow up with you. We will keep an eye on his H&H and give him packed RBC if needed. MD PETE Hoang/ /7:36 PM /10:42 PM
[2016-08-23] VITALS (28 sets, daily range): BP systolic 92–108; BP diastolic 63–74; PULSE 82–100; RESP 18–20; TEMP 97.2–98.4; O2SAT 95–100
[2016-08-23] MEDS: BRIMONIDINE TARTRATE 0.2% OPHT SOLN 5 ML BTL RIGHT EYE SCH ×3 (01:03→21:44)
[2016-08-23] MEDS: LEVOTHYROXINE SODIUM 50 MCG TAB PO SCH (06:33)
[2016-08-23] MEDS: HEPARIN-D5W INJ 250 ML IV SCH (06:36)
[2016-08-23] MEDS: INSULIN ASPART SUPPLEMENTAL SCALE SQ SCH ×2 (06:38→11:00)
--- NOTE | 2016-08-23 07:04 | HHI.PR ---
Addendum to Inpatient Note Addendum Reason: Additional Documentation Additional Information I was called by rn utilization management um oncologist overnight regarding their recommendations. Recommendations are as follows. Official dictation will be on EMR. Recommendations to transfuse if hemoglobin is less than 10. Recommended for transfusion overnight at least for one unit. Advised to stop aspirin or Plavix. Just to stop one antiplatelet therapy. Stop heparin. Start Apixaban 5 mg by mouth twice a day at a reduced dose due to patient's risk of bleed. Then in about 3 months or so, will switch to 2.5 mg by mouth twice a day. Plan to observe patient on the above regimen for a few days. Advised for cardiology to see the patient in to see whether they agree with the above regimen. If patient bleeds at any time on above regimen, then IVC filter is to be placed. Chart reviewed. At this point, cardiology consult is still pending and is unsure whether this is agreeable by cardiology. Therefore for overnight, if only ordered for 1 unit blood transfusion. Above changes in anticoagulation regimen to be started once all 3 parties i.e. gastroenterology, cardiology, hematology agree. Therefore heparin drip was continued until decision is made on this. Amandeep Mary MD Aug 23, 2016 07:04
--- NOTE | 2016-08-23 07:22 | EKG ---
Date Performed: 08/21/2016 Time Performed: 19:37:58 PTAGE: 70 years EKG: PACED RHYTHM Compared to prior tracing no significant change PREVIOUS TRACING : 08/13/2016 18.55 DOCTOR: Tamir Baez Interpretating Date/Time 08/23/2016 07:21:02
--- NOTE | 2016-08-23 07:22 | MB ---
cc: NINO MARISCAL DATE OF CONSULTATION 08/22/2016 REASON FOR CONSULTATION This is a 70-year-old male with a recent history of a GI bleed, a recent cardiac arrest, a severe cardiomyopathy, and a venous thrombosis involving the left leg occurring on aspirin and Plavix. PATIENT PROFILE The patient is a 70-year white male. He is . He has one daughter. He is not able to care for himself. He is currently living with his mother, but due to recent cardiac arrest and subsequent debilitation, he is in a [place] [facility] in [place] where he is undergoing rehabilitation. He is retired. 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 He stopped smoking many years ago. There is no recent history of alcohol. HISTORY OF PRESENT ILLNESS The patient is a severely debilitated 70-year-old male who is unable to care for himself. He has a history of diabetes, hypothyroidism COPD, and ischemic cardiomyopathy. He had apparently has an ejection fraction of 25%. On 08/04/2016, he had a cardiac arrest. He tells me that about 20 years ago, he had a venous thrombosis involving the left leg and was treated with anticoagulants and believes that this was Coumadin. When he had his cardiac arrest, he also was found to have GI bleeding. He underwent upper endoscopy on 08/15/2016. He was found to have esophagitis and moderate gastritis with old blood in the stomach. He now takes Protonix. He was [place] [facility] and developed pain in his left chest area and was brought to the hospital. He underwent a chest x-ray on 08/21 showing no evidence of cardiopulmonary disease. A lung scan showed a low probability of PE. Lower extremity ultrasounds bilaterally showed DVT with partial recanalization present in the left popliteal and peroneal veins. He has noted swelling in this area and he is unsure whether this is old or new. He does not have pain. He is anemic. His hemoglobin is 7.5 on 08/22, white count 13,000, platelets are 424,000. On 08/08, his hemoglobin was 14.2. He had the GI bleed and the hemoglobin has remained low and has fallen slightly. He denies any overt melena or hematochezia. PAST SURGICAL HISTORY 1. Cataract surgery 2. Amputation of toe 3. Coronary bypass surgery grafting 4. Pacemaker/defibrillator PAST MEDICAL HISTORY 1. Cardiac arrests 08/04/2016 with CPR. 2. Myocardial infarction 3. Congestive heart failure 4. Chronic kidney disease 5. Coronary artery disease 6. COPD MEDICATIONS PRIOR TO ADMISSION 1. Ascorbic acid 2. Aspirin 3. Eye drops 4. Coreg 5. Plavix 6. Iron sulfate 7. Lasix 8. Insulin 9. Isosorbide 10. Levothyroxine 11. Nitroglycerin 12. Protonix or Omeprazole 13. Brilinta ALLERGIES IODINE CONTRAST MEDIA AND SULFA FAMILY HISTORY Unclear REVIEW OF SYSTEMS Notable for recent discomfort left chest. No change in vision or hearing. He has been weaker since his cardiac arrest. Speech is difficult and slow. Memory not is not normal. He is only beginning to regain strength. He denies any bleeding. LABORATORY TESTS Currently hemoglobin 7.5, white count 13,000, platelets 424,000, PTT and heparin is 97 and being adjusted, BUN is 23, creatinine is 1.3, GFR is 54. BNP is 1050, TSH 3.9. PHYSICAL EXAM Physical examination reveals a frail gentleman appearing much older than his stated age. Memory is poor and it is difficult to understand his speech. VITAL SIGNS: Blood pressure 100/60, pulse 90 afebrile. O2 sat is 97%. HEAD, EYES, EARS, NOSE, AND THROAT: His head is normocephalic. Sclerae and conjunctiva normal. Oropharynx unremarkable. HEART: Regular rhythm, probably paced. LUNGS: Clear. ABDOMEN: Soft. No hepatosplenomegaly. EXTREMITIES: No edema. Trace edema right leg. The left calf is mildly swollen, minimal tenderness that is different from the right. NEUROLOGIC: Generalized weakness, possibly some left leg weakness. ASSESSMENT The patient is a 70-year-old male who is in extremely poor health. He has a cardiomyopathy, a recent cardiac arrest, congestive heart failure as reflected by the elevated BNP. He has diabetes. He has peripheral vascular disease. He has had an amputation of the toe. He now has a DVT involving the left calf popliteal area. It is unclear when this occurred and whether it is in fact acute or occurred more in the past, especially with the presence of recannulization. He had a recent GI bleed. He is taking aspirin and Plavix. He has a hemoglobin that is now only 7.5. RECOMMENDATIONS 1. This man can ill afford to have another major bleed. I would recommend transfusing him to 10. 2. The risks of bleeding will be significant with the use of aspirin, Plavix and full dose anticoagulation. I would recommend that either the aspirin or Plavix be discontinued and that he be anticoagulated with one of the new oral anticoagulants. I would recommend Apixaban 5 mg p.o. b.i.d. as this has a lower incidence of GI bleeding and renal excretion is only 27%. I would continue the apixaban at 5 mg p.o. b.i.d. for three months and then reduce the dose to 2.5 mg p.o. b.i.d. In the meantime, I would make sure that he has adequate hemoglobin and if he has recurrent significant GI bleeding, then I would stop the apixaban and place an umbrella. It would also be worthwhile to have cardiology see him to make sure they are comfortable with this combination of anticoagulation. I would recommend that his stools be heme tested, but if his hemoglobin is stable and they are trace positive, for the time being I would continue the anticoagulation as described above. Thank you for this consultation. MD JUDITH Pace/YOVANA /9:59 PM /7:00 AM ALL
--- NOTE | 2016-08-23 07:23 | EKG ---
Date Performed: 08/22/2016 Time Performed: 08:43:18 PTAGE: 70 years EKG: ELECTRONIC VENTRICULAR PACEMAKER ABNORMAL RHYTHM ECG Compared to prior tracing no significa nt change PREVIOUS TRACING : 08/22/2016 01.59 DOCTOR: Tamir Baez Interpretating Date/Time 08/23/2016 07:21:22
--- NOTE | 2016-08-23 07:23 | EKG ---
Date Performed: 08/22/2016 Time Performed: 01:59:30 PTAGE: 70 years EKG: ELECTRONIC VENTRICULAR PACEMAKER ABNORMAL RHYTHM ECG Compared to prior tracing no significa nt change PREVIOUS TRACING : 08/21/2016 19.37 DOCTOR: Tamir Baez Interpretating Date/Time 08/23/2016 07:21:11
[2016-08-23 08:13] LABS: APTT (PATIENT) 71.1 SEC (24.3-30.1)
--- NOTE | 2016-08-23 08:35 | HHI.PR ---
Subjective Remarks This is a pleasant 70 y/o male with Hypothyroidism, DM II, COPD, CAD, Ischemic Cardiomyopathy, with EF 25% on Echocardiogram 08/03/2016 CKD, CHF, STEMI and Cardiac Arrest 08/04/16, had CPR with return to [facility], he came to ER with complaint of Right sided chest pain, described as tightness for the past 3 to 4 days, worse with deep inspiration, associated with SOB, discussed at this time with doctor Amandeep Mary she was called by research specialist, recommended to transfuse if Hemoglobin less than 10, stop Aspirin or Plavix, Stop Heparin and Start Apixaban 5 mg by Mouth twice a day, for three months and then decrease to 2.5 mg BID, as per e business specialist Doctor Coleman recommended to perform IVC filter, that could be later today or next morning at this time will continue heparin drip, as per GI specialist Doctor Govind Manning he has Esophagitis, the patient has DVT, will need to be on anticoagulation, No signs of Hemorrhage, Seen in his bedroom and discussed with his nurse Cydney, no new issues, also talked with research specialist NAHUM Miss Glenda Ty they think is too much for the patient to keep him on Plavix, Aspirin and Heparin at this time, I talked to doctor Jared he states Doctor Luis Antonio will take the decision about the need for IVC filter. the patient denies any Nausea, vomit or diarrhea. Objective Vital Signs Date Time Temp Pulse Resp B/P Pulse Ox O2 Delivery O2 Flow Rate FiO2 08/23/16 08:10 100 08/23/16 07:18 96 08/23/16 07:00 97.7 100 18 104/70 100 08/23/16 06:00 94 08/23/16 05:00 92 08/23/16 04:00 98.4 94 20 108/69 98 08/23/16 04:00 93 08/23/16 03:00 94 08/23/16 02:00 92 08/23/16 01:00 92 08/23/16 00:55 98.2 82 20 104/68 98 08/23/16 00:00 96 08/23/16 00:00 98.4 96 20 102/68 98 08/22/16 23:00 96 08/22/16 22:00 100 08/22/16 21:00 96 08/22/16 20:00 98.4 97 20 130/60 93 08/22/16 20:00 100 08/22/16 19:00 98 08/22/16 18:00 54 08/22/16 14:38 98.3 97 18 97/60 97 08/22/16 12:32 101 08/22/16 12:07 96.8 102 20 140/68 94 I/O 08/22/16 08/22/16 08/22/16 08/23/16 08/23/16 08/23/16 07:00 15:00 23:00 07:00 15:00 23:00 Intake Total 240 ml 400 ml Output Total 400 ml 400 ml Balance -160 ml 0 ml Intake Oral 240 ml IV Total 100 ml Packed Cells 300 ml Output Urine Total 400 ml 400 ml # Voids 1 # Bowel Movements 0 0 Result Diagram: 08/22/16 1159 08/22/16 0514 Imaging Last Impressions Lung Scan-VQ Nuclear Medicine 08/22/16 0000 Signed Impressions: Service Date/Time: August 10:09 - CONCLUSION: Low probability of PE. Bala Rosado MD Lower Extremity Ultrasound 08/22/16 0000 Signed Impressions: Service Date/Time: August 07:51 - CONCLUSION: DVT with partial recanalization present in the left popliteal and peroneal veins Scott Leblanc MD Chest X-Ray 08/21/161920 Signed Impressions: Service Date/Time: Sunday, August 21, 2016 19:40 - CONCLUSION: No evidence of acute cardiopulmonary disease. Scott Austin MD Procedures No procedures performed. Other Results Laboratory Tests Test 08/21/16 08/22/16 08/22/16 08/22/16 19:30 05:10 05:14 06:45 Total Bilirubin 0.4 MG/DL Aspartate Amino Transf 16 U/L (AST/SGOT) Alanine Aminotransferase 15 U/L (ALT/SGPT) Alkaline Phosphatase 81 U/L Total Protein 7.2 GM/DL Albumin 2.5 GM/DL Urine Color YELLOW Urine Turbidity HAZY Urine pH 5.0 Urine Specific [place] 1.014 Urine Protein TRACE mg/dL Urine Glucose (UA) NEG mg/dL Urine Ketones NEG mg/dL Urine Occult Blood NEG Urine Nitrite NEG Urine Bilirubin NEG Urine Urobilinogen LESS THAN 2.0 MG/DL Urine Leukocyte Esterase MOD Urine RBC 1 /hpf Urine WBC 25 /hpf Urine Squamous Epithelial 2 /hpf Cells Urine Bacteria OCC /hpf Urine Mucus FEW /lpf Urine Yeast (Budding) OCC Microscopic Urinalysis Comment CULTURE INDICATED Neutrophils (%) (Auto) 77.6 % Lymphocytes (%) (Auto) 10.1 % Monocytes (%) (Auto) 8.0 % Eosinophils (%) (Auto) 3.4 % Basophils (%) (Auto) 0.9 % Neutrophils # (Auto) 8.9 TH/MM3 Lymphocytes # (Auto) 1.2 TH/MM3 Monocytes # (Auto) 0.9 TH/MM3 Eosinophils # (Auto) 0.4 TH/MM3 Basophils # (Auto) 0.1 TH/MM3 CBC Comment DIFF FINAL Differential Comment D-Dimer Quantitative (PE/DVT) 13.42 MG/L FEU Sodium Level 136 MEQ/L Potassium Level 4.0 MEQ/L Chloride Level 102 MEQ/L Carbon Dioxide Level 29.1 MEQ/L Anion Gap 5 MEQ/L Blood Urea Nitrogen 23 MG/DL Creatinine 1.32 MG/DL Estimat Glomerular Filtration 54 ML/MIN Rate Random Glucose 165 MG/DL Calcium Level 8.4 MG/DL B-Type Natriuretic Peptide 1050 PG/ML Thyroid Stimulating Hormone 3.950 uIU/ML 3rd Gen Blood Type O POSITIVE Antibody Screen NEGATIVE Crossmatch Leukocyte-Reduced Red Blood Cells Blood Bank Comment Total Creatine Kinase 28 U/L Troponin I 0.05 NG/ML Test 08/22/16 08/23/16 11:59 07:50 White Blood Count 13.0 TH/MM3 Red Blood Count 2.44 MIL/MM3 Hemoglobin 7.5 GM/DL Hematocrit 23.2 % Mean Corpuscular Volume 95.2 FL Mean Corpuscular Hemoglobin 30.8 PG Mean Corpuscular Hemoglobin 32.3 % Concent Red Cell Distribution Width 16.2 % Platelet Count 424 TH/MM3 Mean Platelet Volume 8.3 FL Prothrombin Time 11.3 SEC Prothromb Time International 1.0 RATIO Ratio Activated Partial 71.1 SEC Thromboplast Time Objective Remarks GENERAL: This is a well-nourished, well-developed patient, appears uncomfortable with shallow respirations SKIN: No rashes, ecchymoses or lesions. Cool and dry. Pale in appearance HEAD: Atraumatic. Normocephalic. No temporal or scalp tenderness. EYES: Extraocular motions intact. No scleral icterus. No injection or drainage. CARDIOVASCULAR: Regular rate and rhythm without murmurs, gallops, or rubs. RESPIRATORY: Clear to auscultation. Breath sounds equal bilaterally. No wheezes , rales, or rhonchi. GASTROINTESTINAL: Abdomen soft, non-tender, No guarding. MUSCULOSKELETAL: Extremities without clubbing, cyanosis, or edema. No joint tenderness, effusion, or edema noted. No calf tenderness. Negative Homans sign bilaterally. NEUROLOGICAL: Awake and alert. No focal deficits. Motor and sensory grossly within normal limits. 3-4 out of 5 muscle strength in all muscle groups. Normal speech. Medications and IVs Current Medications Medications (Trade) Dose Ordered Sig/Jacek Route Start Time Stop Time Status Last Admin (NS Flush) 2 ml UNSCH PRN IV FLUSH 08/21/16 23:30 (NS Flush) 2 ml BID IV FLUSH 08/22/16 09:00 08/22/16 21:24 (Narcan Inj) 0.4 mg UNSCH PRN IV 08/21/16 23:30 (Ecotrin Ec) 81 mg DAILY PO 08/22/16 09:00 08/22/16 11:30 (Coreg) 6.25 mg BID PO 08/22/16 09:00 08/22/16 21:23 (Plavix) 75 mg DAILY PO 08/22/16 09:00 08/22/16 09:20 (Colace) 100 mg BID PO 08/22/16 09:00 08/22/16 21:23 (Lasix) 20 mg DAILY PO 08/22/16 09:00 08/22/16 11:30 ([place] 5-325 Mg) 1 tab Q4H PRN PO 08/21/16 23:30 08/22/16 09:22 (Imdur) 30 mg DAILY PO 08/22/16 09:00 08/22/16 09:21 (Synthroid) 50 mcg DAILY@06 PO 08/22/16 06:00 08/23/16 06:33 (Refresh Classic 1.4-0.6% Pf Opth Soln) 1 drop TID PRN EACH EYE 08/21/16 23:30 Patient Own Medication PT OWN MED: Brinzolamide Opth .. BID RIGHT EYE 08/22/16 09:00 Hold (Mag-Ox) 400 mg DAILY PO 08/22/16 09:00 08/22/16 09:20 (Protonix) 20 mg DAILY PO 08/22/16 09:00 08/22/16 09:36 (Pravachol) 40 mg HS PO 08/22/16 21:00 08/22/16 21:23 (Xalatan 0.005% Opth Soln) 1 drop HS RIGHT EYE 08/22/16 21:00 08/22/16 22:09 (Nitrostat Sl) 0.4 mg Q5M PRN SL 08/21/16 23:30 (D50w (Vial) Inj) 25 ml UNSCH PRN IV PUSH 08/21/16 23:30 (Glucagon Inj) 1 mg UNSCH PRN OTHER 08/21/16 23:30 (Alphagan 0.2% Opth Soln) 1 drop Q12HR RIGHT EYE 08/22/16 09:00 08/23/16 01:03 (Timoptic 0.5% Opth Soln) 1 drop Q12HR RIGHT EYE 08/22/16 09:00 08/22/16 22:10 (Heparin Inj) 5,000 units UNSCH PRN IV 08/22/16 16:30 Heparin Sodium (Porcine) 2500 units 2,500 units UNSCH PRN IV 08/22/16 16:30 (Heparin-D5W Inj) 250 ml @ 0 mls/hr TITRATE IV 08/22/16 10:30 08/23/16 06:36 A/P Assessment and Plan 1. CAD/Ischemic cardiomyopathy with ejection fraction of 25% on echocardiogram dated 08/03/[address] as per Doctor Salmon the Pacemaker was interrogated two months ago and no evidence for firing, he agreed with switch of Plavix for Apixaban as per research specialist he will need to be off one of the Anti-Platelet medicines due to that he is on Heparin and recent GI bleed, as per Cardiology he will need further risk stratification needs Lexiscan to see evidence for ischemic burden, that will be done and further recommendations to be done, he already received Plavix, Aspirin and continue on Heparin, will discuss with e business specialist Doctor Anastacio Salmon in am tomorrow if the patient will need to continue all three medicines, at this time on hold Plavix will continue two medicines as recommended by Hematology. Needs Lexiscan not yet cleared for Endoscopy by e business specialist. 2. CKD III Stable 3. COPD on Bronchodilator, Mucolytic and incentive spirometry, not exacerbated at this time 4. History of STEMI with Cardiac Arrest on 08/04/16, status post CPR with ROSC. 5. DM II on sliding scale increased to Moderate. 6. Anemia Hemoglobin 8.6 he had recent GI bleed 08/13/16 . CAD 7. Hyperlipidemia to continue Statins 8. CHF Systolic dysfunction EF 25% status post Pacemaker placement DVT prophylaxis with Heparin drip. I had the pleasure to talk about the case with e business specialist Doctor Justin Coleman he states doctor Salmon will give recommendations after full evaluation performed appreciated assistance Discharge Planning Once cleared by Specialists Jeremiah Pruitt MD Aug 23, 2016 08:35
[2016-08-23] MEDS: PANTOPRAZOLE SOD 20 MG DELAYED RELEASE TAB PO SCH (08:46)
[2016-08-23] MEDS: DOCUSATE SODIUM 100 MG CAP PO SCH ×2 (08:46→21:42)
[2016-08-23] MEDS: CARVEDILOL 6.25 MG TAB PO SCH ×2 (08:46→21:42)
[2016-08-23] MEDS: SODIUM CHLORIDE 0.9% FLUSH 10 ML FLUSH IV FLUSH SCH ×2 (08:47→21:42)
[2016-08-23] MEDS: ISOSORBIDE MONONITRATE 30 MG TAB PO SCH (08:47)
[2016-08-23] MEDS: ASPIRIN EC 81 MG TABEC PO SCH (08:47)
[2016-08-23] MEDS: MAGNESIUM OXIDE 400 MG TAB PO SCH (08:47)
[2016-08-23] MEDS: TIMOLOL MALEATE 0.5% OPHT SOLN 5 ML BTL RIGHT EYE SCH ×2 (08:47→21:44)
[2016-08-23] MEDS: FUROSEMIDE 20 MG TAB PO SCH (08:47)
[2016-08-23] MEDS: CLOPIDOGREL 75 MG TAB PO SCH (08:47)
--- NOTE | 2016-08-23 10:08 | MB ---
cc: LYDIA LEY MD DATE OF CONSULTATION 08/23/2016 HISTORY This is a 70-year-old gentleman brought to the hospital with chest discomfort and anemia and deep vein thrombosis. He was seen in the past and in July was admitted to the hospital where upon he suffered a PEA arrest. At that time it was felt to be secondary to respiratory problems and he has been treated medically. He has a past medical history of coronary artery disease with bypass grafting in 2004 and subsequent implantation of a defibrillator. He has moved to [place], apparently has been institutionalized in a skilled nursing because of inability to care for himself. The patient is somewhat of a poor historian. In any event, he was noted to have GI bleeding three weeks after his arrest in July. An upper GI was done at that time revealing esophagitis and some old blood. He was continued on aspirin and Plavix which was started in July and has continued through today. While at the skilled nursing, in complained of some chest discomfort and shortness of breath. He is a rather poor historian. He notes that his chest discomfort was pleuritic in nature. His shortness of breath has been relatively chronic. On admission to the hospital, his chest x-ray reveals no evidence for pulmonary vascular congestion and a VQ scan was done revealing low probability of pulmonary emboli, however a lower extremity ultrasound does demonstrate a deep vein thrombosis. He has had a prior history of DVT in the past as well. On the laboratory examination here, his hemoglobin is 7.5 which is down from 8.5. I do note that he was at 14 in July when he left the hospital. PAST MEDICAL HISTORY Otherwise significant for some mild CKD and COPD. MEDICATIONS At home has included: 1. Aspirin 2. Coreg 3. Plavix 4. Lasix 5. Isosorbide 6. Protonix ALLERGIES IODINE CONTRAST MEDIA AND SULFA DRUGS. PHYSICAL EXAM He is awake and alert. He is cooperative. VITAL SIGNS: Blood pressure is 108/70, pulse is 70 and regular. NECK: There is no neck vein distension. Carotids are normal. LUNGS: Essentially clear. CARDIOVASCULAR: Exam reveals a regular rate and rhythm with no murmur or gallop noted. ABDOMEN: Soft without tenderness. EXTREMITIES: Reveal no edema. ASSESSMENT The patient has significant ischemic cardiomyopathy with an AICD in place. Apparently this has been interrogated two months ago with no evidence for firing, although the patient is not being currently followed by cardiology. He has been seen by Dr. Fatima of the oncology service who has recommended switching his Plavix to Abixaban. I certainly have no objection to doing that, although if GI bleeding is a problem, then consideration for implantation of a Liz filter should be considered in view of his sensitivity to anticoagulants. I would recommend that he continue on 81 mg of aspirin daily, however, as well as his Coreg and isosorbide. In view of his history of chest pain before embarking on GI endoscopy or colonoscopy, it would be important to do a Lexiscan to try to was established any evidence for ischemic burden and for further risk stratification. That will be done and further recommendations will pend the outcome of that study. MD ZENA Bowser/YOVANA /7:47 AM /9:48 AM
[2016-08-23 11:06] LABS: AUTOMATED NEUTROPHIL # 9.1 TH/MM3 (1.8-7.7); BASOPHIL # 0.2 TH/MM3 (0-0.2); BASOPHIL % 1.4 % (0.0-2.0); EOSINOPHIL # 0.3 TH/MM3 (0-0.4); EOSINOPHIL % 2.4 % (0.0-4.0); HEMATOCRIT 26.1 % (39.0-51.0); HEMO FLAGS DIFF FINAL; LYMPH % 8.5 % (9.0-44.0); MEAN CELL VOLUME 94.4 FL (80.0-100.0); MEAN CORPUSCULAR HGB CONC 32.8 % (32.0-36.0); MONO % 8.8 % (0.0-8.0); NEUT % 78.9 % (16.0-70.0); PLATELET COUNT 389 TH/MM3 (150-450); RED BLOOD COUNT 2.76 MIL/MM3 (4.50-5.90); RED CELL DISTRIBUTION WIDTH 16.6 % (11.6-17.2); WHITE BLOOD COUNT 11.5 TH/MM3 (4.0-11.0)
--- NOTE | 2016-08-23 11:35 | HHI.GIFU ---
Subjective Remarks Pt laying in bed with emesis basin. He says he is feeling nauseous and has vomited, indicates emesis basin, scant clear liquid noted. He says his ribs hurt. Pt is poor historian. Per RN he has not had a BM today. Objective Vitals I&O Vital Signs Date Time Temp Pulse Resp B/P Pulse Ox O2 Delivery O2 Flow Rate FiO2 08/23/16 10:00 92 08/23/16 09:00 100 08/23/16 08:10 100 08/23/16 07:18 96 08/23/16 07:00 97.7 100 18 104/70 100 08/23/16 06:00 94 08/23/16 05:00 92 08/23/16 04:00 98.4 94 20 108/69 98 08/23/16 04:00 93 08/23/16 03:00 94 08/23/16 02:00 92 08/23/16 01:00 92 08/23/16 00:55 98.2 82 20 104/68 98 08/23/16 00:00 96 08/23/16 00:00 98.4 96 20 102/68 98 08/22/16 23:00 96 08/22/16 22:00 100 08/22/16 21:00 96 08/22/16 20:00 98.4 97 20 130/60 93 08/22/16 20:00 100 08/22/16 19:00 98 08/22/16 18:00 54 08/22/16 14:38 98.3 97 18 97/60 97 08/22/16 12:32 101 08/22/16 12:07 96.8 102 20 140/68 94 I/O 08/22/16 08/22/16 08/22/16 08/23/16 08/23/16 08/23/16 07:00 15:00 23:00 07:00 15:00 23:00 Intake Total 240 ml 400 ml Output Total 400 ml 400 ml Balance -160 ml 0 ml Intake Oral 240 ml IV Total 100 ml Packed Cells 300 ml Output Urine Total 400 ml 400 ml # Voids 1 # Bowel Movements 0 0 Laboratory Laboratory Tests Test 08/22/16 08/22/16 08/22/16 08/23/16 11:59 18:37 22:28 07:50 White Blood Count 13.0 Red Blood Count 2.44 Hemoglobin 7.5 Hematocrit 23.2 Mean Corpuscular Volume 95.2 Mean Corpuscular Hemoglobin 30.8 Mean Corpuscular Hemoglobin 32.3 Concent Red Cell Distribution Width 16.2 Platelet Count 424 Mean Platelet Volume 8.3 Prothrombin Time 11.3 Prothromb Time International 1.0 Ratio Activated Partial 30.3 97.5 45.4 71.1 Thromboplast Time Test 08/23/16 10:50 White Blood Count 11.5 Red Blood Count 2.76 Hemoglobin 8.6 Hematocrit 26.1 Mean Corpuscular Volume 94.4 Mean Corpuscular Hemoglobin 31.0 Mean Corpuscular Hemoglobin 32.8 Concent Red Cell Distribution Width 16.6 Platelet Count 389 Mean Platelet Volume 8.3 Neutrophils (%) (Auto) 78.9 Lymphocytes (%) (Auto) 8.5 Monocytes (%) (Auto) 8.8 Eosinophils (%) (Auto) 2.4 Basophils (%) (Auto) 1.4 Neutrophils # (Auto) 9.1 Lymphocytes # (Auto) 1.0 Monocytes # (Auto) 1.0 Eosinophils # (Auto) 0.3 Basophils # (Auto) 0.2 CBC Comment DIFF FINAL Differential Comment Date/Time Procedure Status Source Growth 08/22/16 05:10 Urine Culture Received Urine Clean Catch Pending Imaging Last Impressions Lung Scan-V Nuclear Medicine 08/22/16 0000 Signed Impressions: Service Date/Time: August 10:09 - CONCLUSION: Low probability of PE. Bala Rosado MD Lower Extremity Ultrasound 08/22/16 0000 Signed Impressions: Service Date/Time: August 07:51 - CONCLUSION: DVT with partial recanalization present in the left popliteal and peroneal veins Scott Leblanc MD Chest X-Ray 08/21/16 192 Signed Impressions: Service Date/Time: Sunday, August 21, 2016 19:40 - CONCLUSION: No evidence of acute cardiopulmonary disease. Scott Austin MD Physical Exam GENERAL: generalized pallor HEENT: EOMI, normocephalic, atraumatic, no jaundice NECK: Neck is supple CHEST: Chest is clear to auscultation and percussion. CARDIAC: Regular rate and rhythm with no murmur gallop or rubs. ABDOMEN: Soft, nondistended, nontender; no hepatosplenomegaly; bowel sounds are present in all four quadrants. EXTREMITIES: No clubbing, cyanosis, or edema. SKIN: Normal; no rash; no jaundice. WINDOW MAKER: No focal deficits; mildly confused. Assessment and Plan Plan ASSESSMENT: - anemia- hemoccult has been ordered but pt has not had a BM. HH 7.5, 23.2. hx GI bleed. 08/15/16 EGD ----> LA class B esophagitis, gastritis in gastric antrum, old blood in stomach but no clear bleeding areas seen - nausea - unk etiology - ischemic cardiomyopathy. Cardiology is following and recommendation is to do lexiscan prior to any endoscopic procedures, and to consider Liz filter -- per cardiology. PLAN: - await lexiscan and further cardiology recommendations - monitor CBC - hemoccult - transfuse as needed -continue PPI - zofran prn nausea - clear liquids for now This pt has been seen by myself and Dr Manning and this note is written on his behalf Keena Madsen Aug 23, 2016 11:35
--- NOTE | 2016-08-23 12:25 | PD.ONC.PN ---
Subjective Subjective Remarks Afebrile overnight. Patient resting comfortably without complaint. Objective Data Date Time Temp Pulse Resp B/P Pulse Ox O2 Delivery O2 Flow Rate FiO2 08/23/16 12:00 89 08/23/16 11:00 88 08/23/16 11:00 98.2 90 18 92/63 96 08/23/16 10:00 92 08/23/16 09:00 100 08/23/16 08:10 100 08/23/16 07:18 96 08/23/16 07:00 97.7 100 18 104/70 100 08/23/16 06:00 94 08/23/16 05:00 92 08/23/16 04:00 98.4 94 20 108/69 98 08/23/16 04:00 93 08/23/16 03:00 94 08/23/16 02:00 92 08/23/16 01:00 92 08/23/16 00:55 98.2 82 20 104/68 98 08/23/16 00:00 96 08/23/16 00:00 98.4 96 20 102/68 98 08/22/16 23:00 96 08/22/16 22:00 100 08/22/16 21:00 96 08/22/16 20:00 98.4 97 20 130/60 93 08/22/16 20:00 100 08/22/16 19:00 98 08/22/16 18:00 54 08/22/16 14:38 98.3 97 18 97/60 97 08/22/16 12:32 101 Result Diagram: 08/23/16 1050 08/22/16 0514 Laboratory Results Laboratory Tests Test 08/22/16 08/22/16 08/23/16 08/23/16 18:37 22:28 07:50 10:50 Activated Partial 97.5 SEC 45.4 SEC 71.1 SEC Thromboplast Time White Blood Count 11.5 TH/MM3 Red Blood Count 2.76 MIL/MM3 Hemoglobin 8.6 GM/DL Hematocrit 26.1 % Mean Corpuscular Volume 94.4 FL Mean Corpuscular Hemoglobin 31.0 PG Mean Corpuscular Hemoglobin 32.8 % Concent Red Cell Distribution Width 16.6 % Platelet Count 389 TH/MM3 Mean Platelet Volume 8.3 FL Neutrophils (%) (Auto) 78.9 % Lymphocytes (%) (Auto) 8.5 % Monocytes (%) (Auto) 8.8 % Eosinophils (%) (Auto) 2.4 % Basophils (%) (Auto) 1.4 % Neutrophils # (Auto) 9.1 TH/MM3 Lymphocytes # (Auto) 1.0 TH/MM3 Monocytes # (Auto) 1.0 TH/MM3 Eosinophils # (Auto) 0.3 TH/MM3 Basophils # (Auto) 0.2 TH/MM3 CBC Comment DIFF FINAL Differential Comment Culture Results Microbiology Date/Time Procedure Status Source Growth 08/22/16 05:10 Urine Culture Received Urine Clean Catch Pending Administered Medications Medications (Trade) Dose Ordered Sig/Jacek Route PRN Reason Start Time Stop Time Status Last Admin Dose Admin Sodium Chloride (NS Flush) 2 ml BID IV FLUSH 08/22/16 09:00 08/23/16 08:47 Aspirin (Ecotrin Ec) 81 mg DAILY PO 08/22/16 09:00 08/23/16 08:47 Carvedilol (Coreg) 6.25 mg BID PO 08/22/16 09:00 08/23/16 08:46 Clopidogrel Bisulfate (Plavix) 75 mg DAILY PO 08/22/16 09:00 08/23/16 08:47 Docusate Sodium (Colace) 100 mg BID PO 08/22/16 09:00 08/23/16 08:46 Furosemide (Lasix) 20 mg DAILY PO 08/22/16 09:00 08/23/16 08:47 Acetaminophen/ Hydrocodone Bitart ([place] 5-325 Mg) 1 tab Q4H PRN PO PAIN 08/21/16 23:30 08/22/16 09:22 Isosorbide Mononitrate (Imdur) 30 mg DAILY PO 08/22/16 09:00 08/23/16 08:47 Levothyroxine Sodium (Synthroid) 50 mcg DAILY@06 PO 08/22/16 06:00 08/23/16 06:33 Magnesium Oxide (Mag-Ox) 400 mg DAILY PO HYPOMAGNESIA 08/22/16 09:00 08/23/16 08:47 Pantoprazole Sodium (Protonix) 20 mg DAILY PO GI BLEED 08/22/16 09:00 08/23/16 08:46 Pravastatin Sodium (Pravachol) 40 mg HS PO CM 08/22/16 21:00 08/22/16 21:23 Latanoprost (Xalatan 0.005% Opth Soln) 1 drop HS RIGHT EYE Glaucoma 08/22/16 21:00 08/22/16 22:09 Brimonidine Tartrate (Alphagan 0.2% Opth Soln) 1 drop Q12HR RIGHT EYE 08/22/16 09:00 08/23/16 08:47 Timolol Maleate 1 drop 1 drop Q12HR RIGHT EYE 08/22/16 09:00 08/23/16 08:47 Heparin Sodium/ Dextrose (Heparin-D5W Inj) 250 ml @ 0 mls/hr TITRATE IV 08/22/16 10:30 08/23/16 06:36 Objective Remarks GENERAL: Confused, elderly male, sitting up in chair next to bed in nad. SKIN: Warm and dry. HEAD: Normocephalic. EYES: No injection or drainage. NECK: Supple, trachea midline. CARDIOVASCULAR: Regular rate and rhythm RESPIRATORY: Breath sounds equal bilaterally. No accessory muscle use. GASTROINTESTINAL: Abdomen soft, non-tender, nondistended. EXTREMITIES: No cyanosis NEUROLOGICAL: awake. delayed responses to questions. poor memory. Assessment/Plan Problem List: (1) Deep vein thrombosis (DVT) of left lower extremity Status: Acute Plan: --currently on heparin drip, Aspirin and Plavix --DVT involving the left calf popliteal area. --unclear if acute or chronic, subacute --especially with the presence of recannulization. --had a recent GI bleed. Assessment 70-year-old male admitted with chest pain, hematology consulted for left leg DVT with a recent history of a GI bleed --history of diabetes, hypothyroidism COPD, and ischemic cardiomyopathy. ejection fraction of 25%, Chronic kidney disease, COPD --08/04/2016--cardiac arrest. --upper endoscopy on 08/15/2016 found to have esophagitis and moderate gastritis with old blood in the stomach. h/o Amputation of toe, Coronary bypass surgery grafting, Pacemaker/defibrillator Plan 1. Transfuse to keep Hb greater than 8 2. Stop Apixiban. Continue heparin 3. R/O GI bleeding. Stool Hemoccult. 4. If Hemoccult positive, Stop Heparin and OK with IVC filter Attending Statement The exam, history, and the medical decision-making described in the above note were completed with the assistance of the mid-level provider. I reviewed and agree with the findings presented. I attest that I had a [id number] encounter with the patient on the same day, and personally performed and documented my assessment and findings in the medical record. Glenda Ty Aug 23, 2016 12:25 Maximiliano Lynn MD Aug 24, 2016 00:03
--- NOTE | 2016-08-23 13:10 | PD.PN.STU ---
Subjective Remarks Patient resting comfortably in bed, no acute distress. No compliants of abd pain , still mild pain to ribs. Feels nauseated, spitting up clear liquid. No hematemesis. He has not had a BM, no hematochezia. Patient kept NPO. Objective Vitals Vital Signs Date Time Temp Pulse Resp B/P Pulse Ox O2 Delivery O2 Flow Rate FiO2 08/23/16 12:00 89 08/23/16 11:00 88 08/23/16 11:00 98.2 90 18 92/63 96 08/23/16 10:00 92 08/23/16 09:00 100 08/23/16 08:10 100 08/23/16 07:18 96 08/23/16 07:00 97.7 100 18 104/70 100 08/23/16 06:00 94 08/23/16 05:00 92 08/23/16 04:00 98.4 94 20 108/69 98 08/23/16 04:00 93 08/23/16 03:00 94 08/23/16 02:00 92 08/23/16 01:00 92 08/23/16 00:55 98.2 82 20 104/68 98 08/23/16 00:00 96 08/23/16 00:00 98.4 96 20 102/68 98 08/22/16 23:00 96 08/22/16 22:00 100 08/22/16 21:00 96 08/22/16 20:00 98.4 97 20 130/60 93 08/22/16 20:00 100 08/22/16 19:00 98 08/22/16 18:00 54 08/22/16 14:38 98.3 97 18 97/60 97 I/O 08/22/16 08/22/16 08/22/16 08/23/16 08/23/16 08/23/16 07:00 15:00 23:00 07:00 15:00 23:00 Intake Total 240 ml 400 ml Output Total 400 ml 400 ml Balance -160 ml 0 ml Intake Oral 240 ml IV Total 100 ml Packed Cells 300 ml Output Urine Total 400 ml 400 ml # Voids 1 # Bowel Movements 0 0 Result Diagram: 08/23/16 1050 08/22/16 0514 Objective Remarks Physical Exam GENERAL: 70 year old white male, no acute distress. Generalized pallor. HEENT: EOMI, normocephalic, atraumatic, no jaundice NECK: Neck is supple CHEST: Chest is clear to auscultation and percussion. CARDIAC: Regular rate and rhythm with no murmur gallop or rubs. ABDOMEN: Soft, nondistended, nontender; no hepatosplenomegaly; bowel sounds are present in all four quadrants. EXTREMITIES: No clubbing, cyanosis, or edema. SKIN: Normal; no rash; no jaundice. REDEVELOPMENT MANAGER: No focal deficits; confusion but could be baseline. Slow to respond to questions. Medications and IVs Current Medications Medications (Trade) Dose Ordered Sig/Jacek Route Start Time Stop Time Status Last Admin (NS Flush) 2 ml UNSCH PRN IV FLUSH 08/21/16 23:30 (NS Flush) 2 ml BID IV FLUSH 08/22/16 09:00 08/23/16 08:47 (Narcan Inj) 0.4 mg UNSCH PRN IV 08/21/16 23:30 (Ecotrin Ec) 81 mg DAILY PO 08/22/16 09:00 08/23/16 08:47 (Coreg) 6.25 mg BID PO 08/22/16 09:00 08/23/16 08:46 (Plavix) 75 mg DAILY PO 08/22/16 09:00 08/23/16 08:47 (Colace) 100 mg BID PO 08/22/16 09:00 08/23/16 08:46 (Lasix) 20 mg DAILY PO 08/22/16 09:00 08/23/16 08:47 ([place] 5-325 Mg) 1 tab Q4H PRN PO 08/21/16 23:30 08/22/16 09:22 (Imdur) 30 mg DAILY PO 08/22/16 09:00 08/23/16 08:47 (Synthroid) 50 mcg DAILY@06 PO 08/22/16 06:00 08/23/16 06:33 (Refresh [place] 1.4-0.6% Pf Opth Soln) 1 drop TID PRN EACH EYE 08/21/16 23:30 Patient Own Medication PT OWN MED: Brinzolamide Opth . BID RIGHT EYE 08/22/16 09:00 Hold (Mag-Ox) 400 mg DAILY PO 08/22/16 09:00 08/23/16 08:47 (Protonix) 20 mg DAILY PO 08/22/16 09:00 08/23/16 08:46 (Pravachol) 40 mg HS PO 08/22/16 21:00 08/22/16 21:23 (Xalatan 0.005% Opth Soln) 1 drop HS RIGHT EYE 08/22/16 21:00 08/22/16 22:09 (Nitrostat Sl) 0.4 mg Q5M PRN SL 08/21/16 23:30 (D50w (Vial) Inj) 25 ml UNSCH PRN IV PUSH 08/21/16 23:30 (Glucagon Inj) 1 mg UNSCH PRN OTHER 08/21/16 23:30 (Alphagan 0.2% Opth Soln) 1 drop Q12HR RIGHT EYE 08/22/16 09:00 08/23/16 08:47 (Timoptic 0.5% Opth Soln) 1 drop Q12HR RIGHT EYE 08/22/16 09:00 08/23/16 08:47 (Heparin Inj) 5,000 units UNSCH PRN IV 08/22/16 16:30 Heparin Sodium (Porcine) 2500 units 2,500 units UNSCH PRN IV 08/22/16 16:30 (Heparin-D5W Inj) 250 ml @ 0 mls/hr TITRATE IV 08/22/16 10:30 08/23/16 06:36 (Zofran Inj) 4 mg Q8HR PRN IV PUSH 08/23/16 13:00 A/P Assessment and Plan ASSESSMENT: - anemia- hemoccult has been ordered but pt has not had a BM. HH 7.5, 23.2 last night, patient transfused 1 unit if concentrated RBC. HH improved now 8.6, 26.1. Dr. Brenner Oncology was consulted, recommended transfusing patient to hemoglobin of 10, withholding ASA due to recureent GI bleeding and switching Plavix to Abixiban. Hx GI bleed. 08/15/16 EGD ----> LA class B esophagitis, gastritis in gastric antrum, old blood in stomach but no clear bleeding areas seen - nausea - unk etiology - ischemic cardiomyopathy. Cardiology is following and recommendation is to do lexiscan prior to any endoscopic procedures, and to consider [place] filter -- per cardiology. - DVT in Left popliteal - VQ scan shows low probability of PE. Continue Heparin drip, patient at therapeutic, will continue to monitor H&H. PLAN: - await lexiscan and further cardiology recommendations. - monitor CBC - hemoccult when patient has BM - transfuse as needed -continue PPI - zofran prn nausea - clear liquids for now Kailyn Saavedra M3 Aug 23, 2016 13:09
[2016-08-23] MEDS: RESP: IPRATROPIUM 0.5 MG/2.5 ML NEB NEB SCH ×2 (15:49→21:53)
[2016-08-23] MEDS: INSULIN NovoLIN REGULAR SUPPLEMENTAL SCALE SQ SCH ×2 (16:01→21:44)
[2016-08-23] MEDS: ONDANSETRON HCL 4 MG/2 ML VIAL IV PUSH PRN ×2 (16:49→21:43)
[2016-08-23] MEDS ORDERED: APIXABAN 5 MG TABLET PO SCH (21:00)
[2016-08-23] MEDS: PRAVASTATIN SOD 40 MG TAB PO SCH (21:43)
[2016-08-23] MEDS: guaiFENesin E.R. 600 MG TAB PO SCH (21:43)
[2016-08-23] MEDS: LATANOPROST 0.005% OPHT SOLN 2.5 ML BTL RIGHT EYE SCH (21:44)
[2016-08-24] VITALS (24 sets, daily range): BP systolic 96–142; BP diastolic 47–74; PULSE 86–99; RESP 14–18; TEMP 96.7–98.4; O2SAT 96–100
[2016-08-24] MEDS: HEPARIN-D5W INJ 250 ML IV SCH ×2 (00:05→16:14)
[2016-08-24] MEDS: RESP: IPRATROPIUM 0.5 MG/2.5 ML NEB NEB SCH ×4 (03:27→21:13)
[2016-08-24] MEDS: LEVOTHYROXINE SODIUM 50 MCG TAB PO SCH (05:00)
[2016-08-24] MEDS: INSULIN NovoLIN REGULAR SUPPLEMENTAL SCALE SQ SCH ×4 (06:34→21:35)
[2016-08-24] MEDS: CARVEDILOL 6.25 MG TAB PO SCH ×2 (09:40→21:33)
[2016-08-24] MEDS: FUROSEMIDE 20 MG TAB PO SCH (09:40)
[2016-08-24] MEDS: MAGNESIUM OXIDE 400 MG TAB PO SCH (09:40)
[2016-08-24] MEDS: DOCUSATE SODIUM 100 MG CAP PO SCH ×2 (09:40→21:33)
[2016-08-24] MEDS: PANTOPRAZOLE SOD 20 MG DELAYED RELEASE TAB PO SCH (09:40)
[2016-08-24] MEDS: guaiFENesin E.R. 600 MG TAB PO SCH ×2 (09:40→21:33)
[2016-08-24] MEDS: SODIUM CHLORIDE 0.9% FLUSH 10 ML FLUSH IV FLUSH SCH ×2 (09:40→21:35)
[2016-08-24] MEDS: ASPIRIN EC 81 MG TABEC PO SCH (09:40)
[2016-08-24] MEDS: TIMOLOL MALEATE 0.5% OPHT SOLN 5 ML BTL RIGHT EYE SCH ×2 (09:41→21:34)
[2016-08-24] MEDS: ISOSORBIDE MONONITRATE 30 MG TAB PO SCH (09:41)
[2016-08-24] MEDS: BRIMONIDINE TARTRATE 0.2% OPHT SOLN 5 ML BTL RIGHT EYE SCH ×2 (09:41→21:34)
[2016-08-24] MEDS ORDERED: REGADENOSON INJ 0.4 MG/5 ML SYR ONE (10:46)
[2016-08-24] MEDS ORDERED: ATROPINE SULFATE 1 MG/10 ML SYRINGE ONE (10:55)
[2016-08-24] MEDS ORDERED: EPINEPHrine HCL (1:10,000) 1 MG/10 ML SYRINGE ONE (10:55)
--- NOTE | 2016-08-24 10:57 | PD.ONC.PN ---
Subjective Subjective Remarks Afebrile overnight. patient resting comfortably without complaint. Per nurse no overnight events. No BM. No bleeding. Going for Lexiscan today. Objective Data Date Time Temp Pulse Resp B/P Pulse Ox O2 Delivery O2 Flow Rate FiO2 08/24/16 10:00 92 08/24/16 09:16 98 Nasal Cannula 2.00 08/24/16 09:00 93 08/24/16 08:00 94 08/24/16 07:30 98.1 95 18 103/71 96 08/24/16 07:00 93 08/24/16 06:00 92 08/24/16 05:00 92 08/24/16 04:00 94 08/24/16 03:00 92 08/24/16 03:00 97.6 94 18 96/70 96 08/24/16 02:00 86 08/24/16 01:00 90 08/24/16 00:00 92 08/23/16 23:00 93 08/23/16 23:00 93 18 100/74 97 08/23/16 22:00 96 08/23/16 21:53 98 Nasal Cannula 2.00 08/23/16 21:00 96 08/23/16 20:00 98 08/23/16 19:00 97.2 99 18 101/70 95 08/23/16 19:00 97 08/23/16 18:01 99 08/23/16 17:00 95 08/23/16 16:00 94 08/23/16 15:56 99 Nasal Cannula 2.00 08/23/16 15:00 97 08/23/16 15:00 97.6 95 18 94/65 100 08/23/16 14:00 92 08/23/16 13:00 91 08/23/16 12:00 89 08/23/16 11:00 88 08/23/16 11:00 98.2 90 18 92/63 96 Result Diagram: 08/23/16 1050 08/22/16 0514 Culture Results Microbiology Date/Time Procedure Status Source Growth 08/22/16 05:10 Urine Culture - Final Complete Urine Clean Catch 10-50,000 CFU/ML MIXED NANETTE... Administered Medications Medications (Trade) Dose Ordered Sig/Jacek Route PRN Reason Start Time Stop Time Status Last Admin Dose Admin Sodium Chloride (NS Flush) 2 ml BID IV FLUSH 08/22/16 09:00 08/24/16 09:40 Aspirin (Ecotrin Ec) 81 mg DAILY PO 08/22/16 09:00 08/24/16 09:40 Carvedilol (Coreg) 6.25 mg BID PO 08/22/16 09:00 08/24/16 09:40 Docusate Sodium (Colace) 100 mg BID PO 08/22/16 09:00 08/24/16 09:40 Furosemide (Lasix) 20 mg DAILY PO 08/22/16 09:00 08/24/16 09:40 Acetaminophen/ Hydrocodone Bitart ([place] 5-325 Mg) 1 tab Q4H PRN PO PAIN 08/21/16 23:30 08/22/16 09:22 Isosorbide Mononitrate (Imdur) 30 mg DAILY PO 08/22/16 09:00 08/24/16 09:41 Levothyroxine Sodium (Synthroid) 50 mcg DAILY@06 PO 08/22/16 06:00 08/24/16 05:00 Magnesium Oxide (Mag-Ox) 400 mg DAILY PO HYPOMAGNESIA 08/22/16 09:00 08/24/16 09:40 Pantoprazole Sodium (Protonix) 20 mg DAILY PO GI BLEED 08/22/16 09:00 08/24/16 09:40 Pravastatin Sodium (Pravachol) 40 mg HS PO CM 08/22/16 21:00 08/23/16 21:43 Latanoprost (Xalatan 0.005% Opth Soln) 1 drop HS RIGHT EYE Glaucoma 08/22/16 21:00 08/23/16 21:44 Brimonidine Tartrate ([place] 0.2% Opth Soln) 1 drop Q12HR RIGHT EYE 08/22/16 09:00 08/24/16 09:41 Timolol Maleate ([place] 0.5% Opth Soln) 1 drop Q12HR RIGHT EYE 08/22/16 09:00 08/24/16 09:41 Ondansetron HCl 4 mg 4 mg Q8HR PRN IV PUSH NAUSEA 08/23/16 13:00 08/23/16 21:43 Heparin Sodium/ Dextrose (Heparin-D5W Inj) 250 ml @ 0 mls/hr TITRATE IV 08/23/16 14:00 08/24/16 00:05 Guaifenesin (Mucinex Er) 600 mg BID PO 08/23/16 21:00 08/24/16 09:40 Objective Remarks GENERAL: Confused male, sitting up in bed in nad SKIN: Warm and dry. HEAD: Normocephalic. EYES: No injection or drainage. NECK: Supple, trachea midline. CARDIOVASCULAR: +S1/S2 RESPIRATORY: Breath sounds equal bilaterally. No accessory muscle use. GASTROINTESTINAL: Abdomen soft, non-tender, nondistended. EXTREMITIES: No cyanosis NEUROLOGICAL: awake, confused. normal speech. Assessment/Plan Problem List: (1) Deep vein thrombosis (DVT) of left lower extremity Status: Acute Plan: --currently on heparin drip and Aspirin, Plavix discontinued --DVT involving the left calf popliteal area. --unclear if acute or chronic, subacute --especially with the presence of recannulization. --had a recent GI bleed. (2) Anemia Status: Acute Plan: --Transfuse to keep Hgb greater than 8 --likely d/t GIB, await GI workup Assessment 70-year-old male admitted with chest pain, hematology consulted for left leg DVT with a recent history of a GI bleed --history of diabetes, hypothyroidism COPD, and ischemic cardiomyopathy. ejection fraction of 25%, Chronic kidney disease, COPD --08/04/2016--cardiac arrest. --upper endoscopy on 08/15/2016 found to have esophagitis and moderate gastritis with old blood in the stomach. h/o Amputation of toe, Coronary bypass surgery grafting, Pacemaker/defibrillator Plan 1. patient to have Lexiscan today to clear for EGD/colonoscopy 2. If patient has GIB, will need to stop heparin and place IVC filter 3. monitor CBC, transfuse to keep hgb>8 Attending Statement The exam, history, and the medical decision-making described in the above note were completed with the assistance of the mid-level provider. I reviewed and agree with the findings presented. I attest that I had a [id number] encounter with the patient on the same day, and personally performed and documented my assessment and findings in the medical record. Glenda Ty Aug 24, 2016 10:56 Maximiliano Lynn MD Aug 24, 2016 23:33
[2016-08-24 11:16] LABS: APTT (PATIENT) 82.5 SEC (24.3-30.1)
[2016-08-24 11:21] LABS: HEMATOCRIT 27.7 % (39.0-51.0); MEAN CELL VOLUME 94.8 FL (80.0-100.0); MEAN CORPUSCULAR HEMOGLOBIN 30.8 PG (27.0-34.0); MEAN CORPUSCULAR HGB CONC 32.5 % (32.0-36.0); PLATELET COUNT 412 TH/MM3 (150-450); RED BLOOD COUNT 2.92 MIL/MM3 (4.50-5.90); RED CELL DISTRIBUTION WIDTH 16.7 % (11.6-17.2); WHITE BLOOD COUNT 12.7 TH/MM3 (4.0-11.0)
[2016-08-24 11:23] LABS: HEMO FLAGS AUTO DIFF
[2016-08-24 12:22] LABS: BANDS 7 % (0-6); BASOPHILS 2 % (0-2); EOSINOPHILS 2 % (0-4); NEUTROPHIL # MANUAL DIFF 10.4 TH/MM3 (1.8-7.7); POLYS (SEG NEUTROPHILS) 75 % (16-70); WBC DIFF SAMPLE 100
[2016-08-24 12:23] LABS: PLATELET ESTIMATE SMEAR NORMAL (NORMAL); PLATELET MORPHOLOGY NORMAL (NORMAL); SCAN/DIFF FINAL DIFF MANUAL
--- NOTE | 2016-08-24 13:04 | HHI.PR ---
Subjective Remarks This is a pleasant 70 y/o male with Hypothyroidism, DM II, COPD, CAD, Ischemic Cardiomyopathy, with EF 25% on Echocardiogram 08/03/2016 CKD, CHF, STEMI and Cardiac Arrest 08/04/16, had CPR with return to ROSC, he came to ER with complaint of Right sided chest pain, described as tightness for the past 3 to 4 days, worse with deep inspiration, associated with SOB, discussed at this time with doctor Amandeep Mary she was called by cash control specialist, recommended to transfuse if Hemoglobin less than 10, stop Aspirin or Plavix, Stop Heparin and Start Apixaban 5 mg by Mouth twice a day, for three months and then decrease to 2.5 mg BID, as per american indian policy specialist Doctor Jared recommended to perform IVC filter, that could be later today or next morning at this time will continue heparin drip, as per GI specialist Doctor Govind Manning he has Esophagitis, the patient has DVT, will need to be on anticoagulation, No signs of Hemorrhage, 08/24: Patient stable discussed with patient and with nurse Miss Dolores mcnally, no complaint by patient, today will go for Lexiscan Stress test also discussed with cash control specialist NAHUM Miss Glenda Ty with Diagnosis of DVT of the left lower extremity unclear if acute or chronic recommended to continue Heparin and Aspirin, cash control specialist recommended to discontinue one of the two antiplatelet therapy medicines discontinued Plavix, today will have Lexiscan and then will need EGD/ Colonoscopy as part of workup for Anemia, by now transfuse to keep Hemoglobin above 8 GR/DL. Objective Vital Signs Date Time Temp Pulse Resp B/P Pulse Ox O2 Delivery O2 Flow Rate FiO2 08/24/16 11:00 98.4 91 18 102/74 97 08/24/16 11:00 89 08/24/16 10:00 92 08/24/16 09:16 98 Nasal Cannula 2.00 08/24/16 09:00 93 08/24/16 08:00 94 08/24/16 07:30 98.1 95 18 103/71 96 08/24/16 07:00 93 08/24/16 06:00 92 08/24/16 05:00 92 08/24/16 04:00 94 08/24/16 03:00 92 08/24/16 03:00 97.6 94 18 96/70 96 08/24/16 02:00 86 08/24/16 01:00 90 08/24/16 00:00 92 08/23/16 23:00 93 08/23/16 23:00 93 18 100/74 97 08/23/16 22:00 96 08/23/16 21:53 98 Nasal Cannula 2.00 08/23/16 21:00 96 08/23/16 20:00 98 08/23/16 19:00 97.2 99 18 101/70 95 08/23/16 19:00 97 08/23/16 18:01 99 08/23/16 17:00 95 08/23/16 16:00 94 08/23/16 15:56 99 Nasal Cannula 2.00 08/23/16 15:00 97 08/23/16 15:00 97.6 95 18 94/65 100 08/23/16 14:00 92 08/23/16 13:00 91 I/O 08/23/16 08/23/16 08/23/16 08/24/16 08/24/16 08/24/16 07:00 15:00 23:00 07:00 15:00 23:00 Intake Total 400 ml 1000 ml 405 ml Output Total 400 ml 675 ml 175 ml Balance 0 ml 325 ml 230 ml Intake Oral 1000 ml 240 ml IV Total 100 ml 165 ml Packed Cells 300 ml Output Urine Total 400 ml 675 ml 175 ml # Bowel Movements 0 0 Result Diagram: 08/24/16 1114 08/22/16 0514 Imaging Last Impressions Lung Scan-VQ Nuclear Medicine 08/22/16 0000 Signed Impressions: Service Date/Time: August 10:09 - CONCLUSION: Low probability of PE. Bala Rosado MD Lower Extremity Ultrasound 08/22/16 0000 Signed Impressions: Service Date/Time: August 07:51 - CONCLUSION: DVT with partial recanalization present in the left popliteal and peroneal veins Scott Leblanc MD Chest X-Ray 08/21/161 Signed Impressions: Service Date/Time: Sunday, August 21, 2016 19:40 - CONCLUSION: No evidence of acute cardiopulmonary disease. Scott Austin MD Procedures No procedures performed. Other Results Laboratory Tests Test 08/21/16 08/22/16 08/22/16 08/22/16 19:30 05:10 05:14 06:45 Total Bilirubin 0.4 MG/DL Aspartate Amino Transf 16 U/L (AST/SGOT) Alanine Aminotransferase 15 U/L (ALT/SGPT) Alkaline Phosphatase 81 U/L Total Protein 7.2 GM/DL Albumin 2.5 GM/DL Urine Color YELLOW Urine Turbidity HAZY Urine pH 5.0 Urine Specific [place] 1.014 Urine Protein TRACE mg/dL Urine Glucose (UA) NEG mg/dL Urine Ketones NEG mg/dL Urine Occult Blood NEG Urine Nitrite NEG Urine Bilirubin NEG Urine Urobilinogen LESS THAN 2.0 MG/DL Urine Leukocyte Esterase MOD Urine RBC 1 /hpf Urine WBC 25 /hpf Urine Squamous Epithelial 2 /hpf Cells Urine Bacteria OCC /hpf Urine Mucus FEW /lpf Urine Yeast (Budding) OCC Microscopic Urinalysis Comment CULTURE INDICATED D-Dimer Quantitative (PE/DVT) 13.42 MG/L FEU Sodium Level 136 MEQ/L Potassium Level 4.0 MEQ/L Chloride Level 102 MEQ/L Carbon Dioxide Level 29.1 MEQ/L Anion Gap 5 MEQ/L Blood Urea Nitrogen 23 MG/DL Creatinine 1.32 MG/DL Estimat Glomerular Filtration 54 ML/MIN Rate Random Glucose 165 MG/DL Calcium Level 8.4 MG/DL B-Type Natriuretic Peptide 1050 PG/ML Thyroid Stimulating Hormone 3.950 uIU/ML 3rd Gen Blood Type O POSITIVE Antibody Screen NEGATIVE Crossmatch Leukocyte-Reduced Red Blood Cells Blood Bank Comment Total Creatine Kinase 28 U/L Troponin I 0.05 NG/ML Test 08/22/16 08/24/16 08/24/16 11:59 10:46 11:14 Prothrombin Time 11.3 SEC Prothromb Time International 1.0 RATIO Ratio Activated Partial 82.5 SEC Thromboplast Time White Blood Count 12.7 TH/MM3 Red Blood Count 2.92 MIL/MM3 Hemoglobin 9.0 GM/DL Hematocrit 27.7 % Mean Corpuscular Volume 94.8 FL Mean Corpuscular Hemoglobin 30.8 PG Mean Corpuscular Hemoglobin 32.5 % Concent Red Cell Distribution Width 16.7 % Platelet Count 412 TH/MM3 Mean Platelet Volume 8.2 FL Neutrophils (%) (Auto) % Lymphocytes (%) (Auto) % Monocytes (%) (Auto) % Eosinophils (%) (Auto) % Basophils (%) (Auto) % Neutrophils # (Auto) TH/MM3 Lymphocytes # (Auto) TH/MM3 Monocytes # (Auto) TH/MM3 Eosinophils # (Auto) TH/MM3 Basophils # (Auto) TH/MM3 CBC Comment AUTO DIFF Differential Total Cells 100 Counted Neutrophils % (Manual) 75 % Band Neutrophils % 7 % Lymphocytes % 8 % Monocytes % 6 % Eosinophils % 2 % Basophils % 2 % Neutrophils # (Manual) 10.4 TH/MM3 Differential Comment FINAL DIFF MANUAL Platelet Estimate NORMAL Platelet Morphology Comment NORMAL Objective Remarks GENERAL: This is a well-nourished, well-developed patient, appears uncomfortable with shallow respirations SKIN: No rashes, ecchymoses or lesions. Cool and dry. Pale in appearance HEAD: Atraumatic. Normocephalic. No temporal or scalp tenderness. EYES: Extraocular motions intact. No scleral icterus. No injection or drainage. CARDIOVASCULAR: Regular rate and rhythm without murmurs, gallops, or rubs. RESPIRATORY: Clear to auscultation. Breath sounds equal bilaterally. No wheezes , rales, or rhonchi. GASTROINTESTINAL: Abdomen soft, non-tender, No guarding. MUSCULOSKELETAL: Extremities without clubbing, cyanosis, or edema. No joint tenderness, effusion, or edema noted. No calf tenderness. Negative Homans sign bilaterally. NEUROLOGICAL: Awake and alert. No focal deficits. Motor and sensory grossly within normal limits. 3-4 out of 5 muscle strength in all muscle groups. Normal speech. Medications and IVs Current Medications Medications (Trade) Dose Ordered Sig/Jacek Route Start Time Stop Time Status Last Admin (NS Flush) 2 ml UNSCH PRN IV FLUSH 08/21/16 23:30 (NS Flush) 2 ml BID IV FLUSH 08/22/16 09:00 08/24/16 09:40 (Narcan Inj) 0.4 mg UNSCH PRN IV 08/21/16 23:30 (Ecotrin Ec) 81 mg DAILY PO 08/22/16 09:00 08/24/16 09:40 (Coreg) 6.25 mg BID PO 08/22/16 09:00 08/24/16 09:40 (Colace) 100 mg BID PO 08/22/16 09:00 08/24/16 09:40 (Lasix) 20 mg DAILY PO 08/22/16 09:00 08/24/16 09:40 ([facility]-325 Mg) 1 tab Q4H PRN PO 08/21/16 23:30 08/22/16 09:22 (Imdur) 30 mg DAILY PO 08/22/16 09:00 08/24/16 09:41 (Synthroid) 50 mcg DAILY@06 PO 08/22/16 06:00 08/24/16 05:00 (Refresh Classic 1.4-0.6% Pf Opth Soln) 1 drop TID PRN EACH EYE 08/21/16 23:30 Patient Own Medication PT OWN MED: Brinzolamide Opth .. BID RIGHT EYE 08/22/16 09:00 Hold (Mag-Ox) 400 mg DAILY PO 08/22/16 09:00 08/24/16 09:40 (Protonix) 20 mg DAILY PO 08/22/16 09:00 08/24/16 09:40 (Pravachol) 40 mg HS PO 08/22/16 21:00 08/23/16 21:43 (Xalatan 0.005% Opth Soln) 1 drop HS RIGHT EYE 08/22/16 21:00 08/23/16 21:44 (Nitrostat Sl) 0.4 mg Q5M PRN SL 08/21/16 23:30 (D50w (Vial) Inj) 25 ml UNSCH PRN IV PUSH 08/21/16 23:30 (Glucagon Inj) 1 mg UNSCH PRN OTHER 08/21/16 23:30 (Alphagan 0.2% Opth Soln) 1 drop Q12HR RIGHT EYE 08/22/16 09:00 08/24/16 09:41 (Timoptic 0.5% Opth Soln) 1 drop Q12HR RIGHT EYE 08/22/16 09:00 08/24/16 09:41 (Heparin Inj) 5,000 units UNSCH PRN IV 08/22/16 16:30 (Heparin Inj) 2,500 units UNSCH PRN IV 08/22/16 16:30 Ondansetron HCl 4 mg 4 mg Q8HR PRN IV PUSH 08/23/16 13:00 08/23/16 21:43 (Heparin-D5W Inj) 250 ml @ 0 mls/hr TITRATE IV 08/23/16 14:00 08/24/16 00:05 (Mucinex Er) 600 mg BID PO 08/23/16 21:00 08/24/16 09:40 A/P Assessment and Plan 1. CAD/Ischemic cardiomyopathy with ejection fraction of 25% on echocardiogram dated 08/03/[address] as per Doctor Luis Antonio the Pacemaker was interrogated two months ago and no evidence for firing, he agreed with switch of Plavix for Apixaban as per cash control specialist he will need to be off one of the Anti-Platelet medicines due to that he is on Heparin and recent GI bleed, as per Cardiology he will need further risk stratification needs Lexiscan to see evidence for ischemic burden, that will be done and further recommendations to be done, he already received Plavix, Aspirin and continue on Heparin, will discuss with american indian policy specialist Doctor Anastacio Salmon in am tomorrow if the patient will need to continue all three medicines, at this time on hold Plavix will continue two medicines as recommended by Hematology. He will have Lexiscan study during the day and will follow american indian policy specialist recommendations, needs clearance for EGD and Colonoscopy. 2. CKD III Stable 3. COPD on Bronchodilator, Mucolytic and incentive spirometry, not exacerbated at this time 4. History of STEMI with Cardiac Arrest on 08/04/16, status post CPR with ROSC. 5. DM II continue sliding scale on Moderate dose due to that the patient has moments where he is NPO. 6. Anemia Hemoglobin 8.6 he had recent GI bleed 08/13/16 7. Hyperlipidemia to continue Statins 8. CAD/CHF Systolic dysfunction EF 25% status post Pacemaker placement DVT prophylaxis with Heparin drip. GI prophylaxis with PPIs will add Carafate. Discussed today with Hematology VEGETABLE [employer]ARMWORK[employer] Miss Glenda Ty appreciated. Discharge Planning Once cleared by Specialists Jeremiah Pruitt MD Aug 24, 2016 13:04
--- NOTE | 2016-08-24 15:18 | HHI.GIFU ---
Subjective Remarks Patient resting in bed ordering dinner, no BM yet, no signs of bleeding, having some mild abdomen tenderness. Stress test pending Objective Vitals I&O Vital Signs Date Time Temp Pulse Resp B/P Pulse Ox O2 Delivery O2 Flow Rate FiO2 08/24/16 15:00 92 08/24/16 11:00 98.4 91 18 102/74 97 08/24/16 11:00 89 08/24/16 10:00 92 08/24/16 09:16 98 Nasal Cannula 2.00 08/24/16 09:00 93 08/24/16 08:00 94 08/24/16 07:30 98.1 95 18 103/71 96 08/24/16 07:00 93 08/24/16 06:00 92 08/24/16 05:00 92 08/24/16 04:00 94 08/24/16 03:00 92 08/24/16 03:00 97.6 94 18 96/70 96 08/24/16 02:00 86 08/24/16 01:00 90 08/24/16 00:00 92 08/23/16 23:00 93 08/23/16 23:00 93 18 100/74 97 08/23/16 22:00 96 08/23/16 21:53 98 Nasal Cannula 2.00 08/23/16 21:00 96 08/23/16 20:00 98 08/23/16 19:00 97.2 99 18 101/70 95 08/23/16 19:00 97 08/23/16 18:01 99 08/23/16 17:00 95 08/23/16 16:00 94 08/23/16 15:56 99 Nasal Cannula 2.00 I/O 08/23/16 08/23/16 08/23/16 08/24/16 08/24/16 08/24/16 07:00 15:00 23:00 07:00 15:00 23:00 Intake Total 400 ml 1000 ml 405 ml Output Total 400 ml 675 ml 175 ml Balance 0 ml 325 ml 230 ml Intake Oral 1000 ml 240 ml IV Total 100 ml 165 ml Packed Cells 300 ml Output Urine Total 400 ml 675 ml 175 ml # Bowel Movements 0 0 Laboratory Laboratory Tests Test 08/24/16 08/24/16 10:46 11:14 Activated Partial 82.5 Thromboplast Time White Blood Count 12.7 Red Blood Count 2.92 Hemoglobin 9.0 Hematocrit 27.7 Mean Corpuscular Volume 94.8 Mean Corpuscular Hemoglobin 30.8 Mean Corpuscular Hemoglobin 32.5 Concent Red Cell Distribution Width 16.7 Platelet Count 412 Mean Platelet Volume 8.2 Neutrophils (%) (Auto) Lymphocytes (%) (Auto) Monocytes (%) (Auto) Eosinophils (%) (Auto) Basophils (%) (Auto) Neutrophils # (Auto) Lymphocytes # (Auto) Monocytes # (Auto) Eosinophils # (Auto) Basophils # (Auto) CBC Comment AUTO DIFF Differential Total Cells 100 Counted Neutrophils % (Manual) 75 Band Neutrophils % 7 Lymphocytes % 8 Monocytes % 6 Eosinophils % 2 Basophils % 2 Neutrophils # (Manual) 10.4 Differential Comment FINAL DIFF MANUAL Platelet Estimate NORMAL Platelet Morphology Comment NORMAL Date/Time Procedure Status Source Growth 08/22/16 05:10 Urine Culture - Final Complete Urine Clean Catch 10-50,000 CFU/ML MIXED NANETTE... Imaging Last Impressions Lung Scan-VQ Nuclear Medicine 08/22/16 0000 Signed Impressions: Service Date/Time: August 10:09 - CONCLUSION: Low probability of PE. Bala Rosado MD Lower Extremity Ultrasound 08/22/16 0000 Signed Impressions: Service Date/Time: August 07:51 - CONCLUSION: DVT with partial recanalization present in the left popliteal and peroneal veins Scott Leblanc MD Chest X-Ray 08/21/16 1921 Signed Impressions: Service Date/Time: Sunday, August 21, 2016 19:40 - CONCLUSION: No evidence of acute cardiopulmonary disease. Scott Austin MD Physical Exam GENERAL: generalized pallor HEENT: EOMI, normocephalic, atraumatic, no jaundice NECK: Neck is supple CHEST: Chest is clear to auscultation and percussion. CARDIAC: Regular rate and rhythm with no murmur gallop or rubs. ABDOMEN: Soft, nondistended,mild lower abdomen tenderness; no hepatosplenomegaly; bowel sounds are present in all four quadrants. EXTREMITIES: No clubbing, cyanosis, or edema. SKIN: Normal; no rash; no jaundice. CHARGE MANAGER: No focal deficits; mildly confused. Assessment and Plan Plan ASSESSMENT: - anemia- hemoccult has been ordered but pt has not had a BM. HH 9.2/27.7 hx GI bleed. 08/15/16 EGD ----> LA class B esophagitis, gastritis in gastric antrum, old blood in stomach but no clear bleeding areas seen - nausea - unk etiology - ischemic cardiomyopathy. Cardiology is following and recommendation is to do lexiscan prior to any endoscopic procedures, and to consider [place] filter -- per cardiology. He is Heparin PLAN: - Lexiscan was done today, still pending, will await results and further cardiology recommendations - monitor CBC - Hemoccult - transfuse as needed - continue PPI - zofran prn nausea - clear liquids for now This pt has been seen by myself and Dr Manning and this note is written on his behalf Dee Velarde Aug 24, 2016 15:18
--- NOTE | 2016-08-24 15:49 | RADRPT ---
EXAM DATE/TIME: 08/24/2016 11:30 [facility] COMPARISON: No previous studies available for comparison. INDICATIONS : Chest pain with dyspnea. Coronary atherosclerosis. DOSE: 31.2 mCi Tc99m Myoview at stress. 10.3 mCi Tc99m Myoview at rest. 0.4 mg Lexiscan STRESS SYMPTOMS: Nausea. EJECTION FRACTION: 27% MEDICAL HISTORY : Myocardial infarction. Chronic obstructive pulmonary disease. Renal insufficiency, chronic. SURGICAL HISTORY : CABG Pacemaker. ENCOUNTER: Initial ACUITY: 1 day PAIN SCALE: 0/106 LOCATION: chest TECHNIQUE: The patient underwent pharmacologic stress with infusion of prescribed dose. Continuous ECG tracing was monitored during stress. Gated SPECT imaging was performed after stress and conventional SPECT i maging was performed at rest. The examination was performed on a SPECT/CT scanner, both attenuation and non-corrected datasets were reviewed. FINDINGS: DISTRIBUTION: The maximum perfused segment at stress is in the anterolateral wall. PERFUSION STUDY: There is a large fixed perfusion defect at the cardiac apex extending mostly into the inferior and se ptal wall. No significant reversibility to suggest ischemia. GATED STUDY: Global hypokinesis with ejection fraction 27%. CONCLUSION: 1. Large fixed perfusion defect centered at the cardiac apex and extending cephalad especially in the inferior wall and septal wall. No significant reversibility to suggest ischemia. 2. Dilated left ventricle with global hypokinesis and ejection fraction 27%. RISK CATEGORY: High (>3% Annual Mortality Rate) Jorge Pearce MD on August 24, 2016 at 15:44 Board Certified Radiologist. This report was verified electronically.
[2016-08-24 19:13] LABS: APTT (PATIENT) 61.8 SEC (24.3-30.1)
[2016-08-24] MEDS: PRAVASTATIN SOD 40 MG TAB PO SCH (21:33)
[2016-08-24] MEDS: LATANOPROST 0.005% OPHT SOLN 2.5 ML BTL RIGHT EYE SCH (21:34)
[2016-08-25] VITALS (26 sets, daily range): BP systolic 94–141; BP diastolic 48–60; PULSE 80–93; RESP 18–20; TEMP 97.4–98.5; O2SAT 95–100
[2016-08-25 01:25] LABS: HEMATOCRIT 28.2 % (39.0-51.0); MEAN CELL VOLUME 96.4 FL (80.0-100.0); MEAN CORPUSCULAR HGB CONC 31.1 % (32.0-36.0); PLATELET COUNT 362 TH/MM3 (150-450); RED BLOOD COUNT 2.93 MIL/MM3 (4.50-5.90); RED CELL DISTRIBUTION WIDTH 16.6 % (11.6-17.2); REVIEW FLAG FINAL; WHITE BLOOD COUNT 11.9 TH/MM3 (4.0-11.0)
[2016-08-25 01:58] LABS: APTT (PATIENT) 44.4 SEC (24.3-30.1)
[2016-08-25] MEDS: RESP: IPRATROPIUM 0.5 MG/2.5 ML NEB NEB SCH ×4 (03:44→20:45)
[2016-08-25] MEDS: LEVOTHYROXINE SODIUM 50 MCG TAB PO SCH (06:00)
[2016-08-25] MEDS: ACETAMINOPHEN/HYDROcodone 325 MG/5 MG TAB PO PRN (06:23)
[2016-08-25] MEDS: INSULIN NovoLIN REGULAR SUPPLEMENTAL SCALE SQ SCH ×4 (07:00→22:45)
[2016-08-25 07:02] LABS: MRSA PCR POSITIVE (NEGATIVE); STAPH AUREUS PCR POSITIVE (NEGATIVE)
[2016-08-25] MEDS: CARVEDILOL 6.25 MG TAB PO SCH ×2 (08:15→22:44)
[2016-08-25] MEDS: PANTOPRAZOLE SOD 20 MG DELAYED RELEASE TAB PO SCH (08:15)
[2016-08-25] MEDS: DOCUSATE SODIUM 100 MG CAP PO SCH ×2 (08:15→21:00)
[2016-08-25] MEDS: ASPIRIN EC 81 MG TABEC PO SCH (08:15)
[2016-08-25] MEDS: ISOSORBIDE MONONITRATE 30 MG TAB PO SCH (08:15)
[2016-08-25] MEDS: guaiFENesin E.R. 600 MG TAB PO SCH ×2 (08:15→22:43)
[2016-08-25] MEDS: SODIUM CHLORIDE 0.9% FLUSH 10 ML FLUSH IV FLUSH SCH ×2 (08:15→21:00)
[2016-08-25] MEDS: FUROSEMIDE 20 MG TAB PO SCH (08:16)
[2016-08-25] MEDS: MAGNESIUM OXIDE 400 MG TAB PO SCH (08:16)
[2016-08-25] MEDS: BRIMONIDINE TARTRATE 0.2% OPHT SOLN 5 ML BTL RIGHT EYE SCH ×2 (08:17→22:45)
[2016-08-25] MEDS: TIMOLOL MALEATE 0.5% OPHT SOLN 5 ML BTL RIGHT EYE SCH ×2 (08:17→22:46)
--- NOTE | 2016-08-25 08:28 | HHI.PR ---
Subjective Remarks This is a pleasant 70 y/o male with Hypothyroidism, DM II, COPD, CAD, Ischemic Cardiomyopathy, with EF 25% on Echocardiogram 08/03/2016 CKD, CHF, STEMI and Cardiac Arrest 08/04/16, had CPR with return to ROSC, he came to ER with complaint of Right sided chest pain, described as tightness for the past 3 to 4 days, worse with deep inspiration, associated with SOB, discussed at this time with doctor Amandeep Mary she was called by transfer specialist, recommended to transfuse if Hemoglobin less than 10, stop Aspirin or Plavix, Stop Heparin and Start Apixaban 5 mg by Mouth twice a day, for three months and then decrease to 2.5 mg BID, as per cash reconciliation specialist Doctor Jared recommended to perform IVC filter, that could be later today or next morning at this time will continue heparin drip, as per GI specialist Doctor Govind Manning he has Esophagitis, the patient has DVT, will need to be on anticoagulation, No signs of Hemorrhage, 08/24: Status post Lexiscan Stress test, transfer specialist recommended to discontinue one of the two antiplatelet therapy medicines discontinued Plavix, today will have Lexiscan and then will need EGD/ Colonoscopy as part of workup for Anemia, by now transfuse to keep Hemoglobin above 8 GR/DL. 08/25: Seen in his bedroom in the presence of nurse Miss Bernal, no nausea, vomit or diarrhea, no ischemic disease on Stress test he will have EGD and Colonoscopy by tomorrow. Objective Vital Signs Date Time Temp Pulse Resp B/P Pulse Ox O2 Delivery O2 Flow Rate FiO2 08/25/16 07:00 84 08/25/16 06:00 84 08/25/16 05:00 84 08/25/16 04:00 84 08/25/16 03:00 87 08/25/16 03:00 98.5 87 20 94/59 97 08/25/16 02:00 86 08/25/16 01:00 88 08/25/16 00:00 84 08/24/16 23:00 88 08/24/16 23:00 96.7 86 14 104/47 100 08/24/16 22:00 90 08/24/16 21:00 92 08/24/16 20:00 88 08/24/16 19:00 99 08/24/16 19:00 97.5 92 18 142/65 99 4/15/17 18:00 91 08/24/16 17:02 91 08/24/16 16:30 97 Nasal Cannula 2.00 08/24/16 16:00 92 08/24/16 15:00 98.2 90 18 106/70 96 08/24/16 15:00 92 08/24/16 11:00 98.4 91 18 102/74 97 08/24/16 11:00 89 08/24/16 10:00 92 08/24/16 09:16 98 Nasal Cannula 2.00 08/24/16 09:00 93 I/O 08/24/16 08/24/16 08/24/16 08/25/16 08/25/16 08/25/16 07:00 15:00 23:00 07:00 15:00 23:00 Intake Total 405 ml 120 ml 240 ml Output Total 175 ml 300 ml 125 ml Balance 230 ml -180 ml 115 ml Intake Oral 240 ml 120 ml 240 ml IV Total 165 ml Output Urine Total 175 ml 300 ml 125 ml # Bowel Movements 0 Result Diagram: 08/25/16 0105 08/22/16 0514 Imaging Last Impressions Myocardial Perfusion Scan Nuc Med 08/24/16 0000 Signed Impressions: Service Date/Time: Wednesday, August 24, 2016 11:30 - CONCLUSION: 1. Large fixed perfusion defect centered at the cardiac apex and extending cephalad especially in the inferior wall and septal wall. No significant reversibility to suggest ischemia. 2. Dilated left ventricle with global hypokinesis and ejection fraction 27%%. RISK CATEGORY: High (>3%% Annual Mortality Rate) Jorge Pearce MD Lung Scan- Nuclear Medicine 08/22/16 0000 Signed Impressions: Service Date/Time: August 10:09 - CONCLUSION: Low probability of PE. Bala Rosado MD Lower Extremity Ultrasound 08/22/16 0000 Signed Impressions: Service Date/Time: August 07:51 - CONCLUSION: DVT with partial recanalization present in the left popliteal and peroneal veins Scott Leblanc MD Chest X-Ray 08/21/16 192 Signed Impressions: Service Date/Time: Sunday, August 21, 2016 19:40 - CONCLUSION: No evidence of acute cardiopulmonary disease. Scott Austin MD Procedures No procedures performed. Other Results Laboratory Tests Test 08/21/16 08/22/16 08/22/16 08/22/16 19:30 05:10 05:14 06:45 Total Bilirubin 0.4 MG/DL Aspartate Amino Transf 16 U/L (AST/SGOT) Alanine Aminotransferase 15 U/L (ALT/SGPT) Alkaline Phosphatase 81 U/L Total Protein 7.2 GM/DL Albumin 2.5 GM/DL Urine Color YELLOW Urine Turbidity HAZY Urine pH 5.0 Urine Specific [place] 1.014 Urine Protein TRACE mg/dL Urine Glucose (UA) NEG mg/dL Urine Ketones NEG mg/dL Urine Occult Blood NEG Urine Nitrite NEG Urine Bilirubin NEG Urine Urobilinogen LESS THAN 2.0 MG/DL Urine Leukocyte Esterase MOD Urine RBC 1 /hpf Urine WBC 25 /hpf Urine Squamous Epithelial 2 /hpf Cells Urine Bacteria OCC /hpf Urine Mucus FEW /lpf Urine Yeast (Budding) OCC Microscopic Urinalysis Comment CULTURE INDICATED D-Dimer Quantitative (PE/DVT) 13.42 MG/L FEU Sodium Level 136 MEQ/L Potassium Level 4.0 MEQ/L Chloride Level 102 MEQ/L Carbon Dioxide Level 29.1 MEQ/L Anion Gap 5 MEQ/L Blood Urea Nitrogen 23 MG/DL Creatinine 1.32 MG/DL Estimat Glomerular Filtration 54 ML/MIN Rate Random Glucose 165 MG/DL Calcium Level 8.4 MG/DL B-Type Natriuretic Peptide 1050 PG/ML Thyroid Stimulating Hormone 3.950 uIU/ML 3rd Gen Blood Type O POSITIVE Antibody Screen NEGATIVE Crossmatch Leukocyte-Reduced Red Blood Cells Blood Bank Comment Total Creatine Kinase 28 U/L Troponin I 0.05 NG/ML Test 08/22/16 08/24/16 08/25/16 08/25/16 11:59 11:14 01:05 04:30 Prothrombin Time 11.3 SEC Prothromb Time International 1.0 RATIO Ratio Neutrophils (%) (Auto) % Lymphocytes (%) (Auto) % Monocytes (%) (Auto) % Eosinophils (%) (Auto) % Basophils (%) (Auto) % Neutrophils # (Auto) TH/MM3 Lymphocytes # (Auto) TH/MM3 Monocytes # (Auto) TH/MM3 Eosinophils # (Auto) TH/MM3 Basophils # (Auto) TH/MM3 CBC Comment AUTO DIFF Differential Total Cells 100 Counted Neutrophils % (Manual) 75 % Band Neutrophils % 7 % Lymphocytes % 8 % Monocytes % 6 % Eosinophils % 2 % Basophils % 2 % Neutrophils # (Manual) 10.4 TH/MM3 Differential Comment FINAL DIFF MANUAL Platelet Estimate NORMAL Platelet Morphology Comment NORMAL White Blood Count 11.9 TH/MM3 Red Blood Count 2.93 MIL/MM3 Hemoglobin 8.8 GM/DL Hematocrit 28.2 % Mean Corpuscular Volume 96.4 FL Mean Corpuscular Hemoglobin 30.0 PG Mean Corpuscular Hemoglobin 31.1 % Concent Red Cell Distribution Width 16.6 % Platelet Count 362 TH/MM3 Mean Platelet Volume 8.2 FL Activated Partial 44.4 SEC Thromboplast Time Nasal Screen MRSA (PCR) POSITIVE Staphylococcus aureus POSITIVE (PCR)(LAB) Objective Remarks GENERAL: This is a well-nourished, well-developed patient, appears uncomfortable with shallow respirations SKIN: No rashes, ecchymoses or lesions. Cool and dry. Pale in appearance HEAD: Atraumatic. Normocephalic. No temporal or scalp tenderness. EYES: Extraocular motions intact. No scleral icterus. No injection or drainage. CARDIOVASCULAR: Regular rate and rhythm without murmurs, gallops, or rubs. RESPIRATORY: Clear to auscultation. Breath sounds equal bilaterally. No wheezes , rales, or rhonchi. GASTROINTESTINAL: Abdomen soft, non-tender, No guarding. MUSCULOSKELETAL: Extremities without clubbing, cyanosis, or edema. No joint tenderness, effusion, or edema noted. No calf tenderness. Negative Homans sign bilaterally. NEUROLOGICAL: Awake and alert. No focal deficits. Motor and sensory grossly within normal limits. 3-4 out of 5 muscle strength in all muscle groups. Normal speech. Medications and IVs Current Medications Medications (Trade) Dose Ordered Sig/Jacek Route Start Time Stop Time Status Last Admin (NS Flush) 2 ml UNSCH PRN IV FLUSH 08/21/16 23:30 (NS Flush) 2 ml BID IV FLUSH 08/22/16 09:00 08/25/16 08:15 (Narcan Inj) 0.4 mg UNSCH PRN IV 08/21/16 23:30 (Ecotrin Ec) 81 mg DAILY PO 08/22/16 09:00 08/25/16 08:15 (Coreg) 6.25 mg BID PO 08/22/16 09:00 08/25/16 08:15 (Colace) 100 mg BID PO 08/22/16 09:00 08/25/16 08:15 (Lasix) 20 mg DAILY PO 08/22/16 09:00 08/25/16 08:16 ([place] 5-325 Mg) 1 tab Q4H PRN PO 08/21/16 23:30 08/25/16 06:23 (Imdur) 30 mg DAILY PO 08/22/16 09:00 08/25/16 08:15 (Synthroid) 50 mcg DAILY@06 PO 08/22/16 06:00 08/25/16 06:00 (Refresh Classic 1.4-0.6% Pf Opth Soln) 1 drop TID PRN EACH EYE 08/21/16 23:30 Patient Own Medication PT OWN MED: Brinzolamide Opth .. BID RIGHT EYE 08/22/16 09:00 Hold (Mag-Ox) 400 mg DAILY PO 08/22/16 09:00 08/25/16 08:16 (Protonix) 20 mg DAILY PO 08/22/16 09:00 08/25/16 08:15 (Pravachol) 40 mg HS PO 08/22/16 21:00 08/24/16 21:33 (Xalatan 0.005% Opth Soln) 1 drop HS RIGHT EYE 08/22/16 21:00 08/24/16 21:34 (Nitrostat Sl) 0.4 mg Q5M PRN SL 08/21/16 23:30 (D50w (Vial) Inj) 25 ml UNSCH PRN IV PUSH 08/21/16 23:30 (Glucagon Inj) 1 mg UNSCH PRN OTHER 08/21/16 23:30 (Alphagan 0.2% Opth Soln) 1 drop Q12HR RIGHT EYE 08/22/16 09:00 08/25/16 08:17 (Timoptic 0.5% Opth Soln) 1 drop Q12HR RIGHT EYE 08/22/16 09:00 08/25/16 08:17 (Heparin Inj) 5,000 units UNSCH PRN IV 08/22/16 16:30 (Heparin Inj) 2,500 units UNSCH PRN IV 08/22/16 16:30 Ondansetron HCl 4 mg 4 mg Q8HR PRN IV PUSH 08/23/16 13:00 08/23/16 21:43 (Heparin-D5W Inj) 250 ml @ 0 mls/hr TITRATE IV 08/23/16 14:00 08/24/16 16:14 (Mucinex Er) 600 mg BID PO 08/23/16 21:00 08/25/16 08:15 A/P Assessment and Plan 1. CAD/Ischemic cardiomyopathy with ejection fraction of 25% on echocardiogram dated 08/03/[address] as per Doctor Luis Antonio the Pacemaker was interrogated two months ago and no evidence for firing, he agreed with switch of Plavix for Apixaban as per transfer specialist he will need to be off one of the Anti-Platelet medicines due to that he is on Heparin and recent GI bleed, status post Stress test and no ischemic disease at this time he will have EGD and Colonoscopy by tomorrow. continue Heparin and Aspirin, awaiting for tomorrow's evaluation by cash reconciliation specialist and GI specialist for probable IVC filter placement 2. CKD III Stable 3. COPD on Bronchodilator, Mucolytic and incentive spirometry, not exacerbated at this time 4. History of STEMI with Cardiac Arrest on 08/04/16, status post CPR with ROSC. 5. DM II continue sliding scale on Moderate dose due to that the patient has moments where he is NPO. 6. Anemia Hemoglobin 8.8 he had recent GI bleed 08/13/16 7. Hyperlipidemia to continue Statins 8. CAD/CHF Systolic dysfunction EF 25% status post Pacemaker placement DVT prophylaxis with Heparin drip. GI prophylaxis with PPIs and Carafate. Discussed today with Patient all questions answered to the best of my abilities. Discharge Planning Once cleared by Specialists Jeremiah Pruitt MD Aug 25, 2016 08:28 Discharge Planning Once cleared by Specialists Jeremiah Pruitt MD Aug 25, 2016 08:28 Once cleared by Specialists Jeremiah Pruitt MD Aug 25, 2016 08:28
--- NOTE | 2016-08-25 09:58 | PD.CARD.PN ---
Subjective Subjective Remarks No complaints. Objective Medications Administered Medications Medications (Trade) Dose Ordered Sig/Jacek Route PRN Reason Start Time Stop Time Status Last Admin Dose Admin Sodium Chloride (NS Flush) 2 ml BID IV FLUSH 08/22/16 09:00 08/25/16 08:15 Aspirin (Ecotrin Ec) 81 mg DAILY PO 08/22/16 09:00 08/25/16 08:15 Carvedilol (Coreg) 6.25 mg BID PO 08/22/16 09:00 08/25/16 08:15 Docusate Sodium (Colace) 100 mg BID PO 08/22/16 09:00 08/25/16 08:15 Furosemide (Lasix) 20 mg DAILY PO 08/22/16 09:00 08/25/16 08:16 Acetaminophen/ Hydrocodone Bitart ([place] 5-325 Mg) 1 tab Q4H PRN PO PAIN 08/21/16 23:30 08/25/16 06:23 Isosorbide Mononitrate (Imdur) 30 mg DAILY PO 08/22/16 09:00 08/25/16 08:15 Levothyroxine Sodium (Synthroid) 50 mcg DAILY@06 PO 08/22/16 06:00 08/25/16 06:00 Magnesium Oxide (Mag-Ox) 400 mg DAILY PO HYPOMAGNESIA 08/22/16 09:00 08/25/16 08:16 Pantoprazole Sodium (Protonix) 20 mg DAILY PO GI BLEED 08/22/16 09:00 08/25/16 08:15 Pravastatin Sodium (Pravachol) 40 mg HS PO CM 08/22/16 21:00 08/24/16 21:33 Latanoprost (Xalatan 0.005% Opth Soln) 1 drop HS RIGHT EYE Glaucoma 08/22/16 21:00 08/24/16 21:34 Brimonidine Tartrate (Alphagan 0.2% Opth Soln) 1 drop Q12HR RIGHT EYE 08/22/16 09:00 08/25/16 08:17 Timolol Maleate (Timoptic 0.5% Opth Soln) 1 drop Q12HR RIGHT EYE 08/22/16 09:00 08/25/16 08:17 Ondansetron HCl 4 mg 4 mg Q8HR PRN IV PUSH NAUSEA 08/23/16 13:00 08/23/16 21:43 Heparin Sodium/ Dextrose (Heparin-D5W Inj) 250 ml @ 0 mls/hr TITRATE IV 08/23/16 14:00 08/24/16 16:14 Guaifenesin (Mucinex Er) 600 mg BID PO 08/23/16 21:00 08/25/16 08:15 Vital Signs / I&O Vital Signs Date Time Temp Pulse Resp B/P Pulse Ox O2 Delivery O2 Flow Rate FiO2 08/25/16 09:19 95 Nasal Cannula 2.00 08/25/16 08:00 97.8 85 18 102/52 95 08/25/16 07:00 84 08/25/16 06:00 84 08/25/16 05:00 84 08/25/16 04:00 84 08/25/16 03:00 87 08/25/16 03:00 98.5 87 20 94/59 97 08/25/16 02:00 86 08/25/16 01:00 88 08/25/16 00:00 84 08/24/16 23:00 88 08/24/16 23:00 96.7 86 14 104/47 100 08/24/16 22:00 90 08/24/16 21:00 92 08/24/16 20:00 88 08/24/16 19:00 99 08/24/16 19:00 97.5 92 18 142/65 99 08/24/16 18:00 91 08/24/16 17:02 91 08/24/16 16:30 97 Nasal Cannula 2.00 08/24/16 16:00 92 08/24/16 15:00 98.2 90 18 106/70 96 08/24/16 15:00 92 08/24/16 11:00 98.4 91 18 102/74 97 08/24/16 11:00 89 08/24/16 10:00 92 I/O 08/24/16 08/24/16 08/24/16 08/25/16 08/25/16 08/25/16 07:00 15:00 23:00 07:00 15:00 23:00 Intake Total 405 ml 120 ml 240 ml Output Total 175 ml 300 ml 125 ml Balance 230 ml -180 ml 115 ml Intake Oral 240 ml 120 ml 240 ml IV Total 165 ml Output Urine Total 175 ml 300 ml 125 ml # Bowel Movements 0 Physical Exam GENERAL: This is a well-nourished, well-developed patient, in no apparent distress. CARDIOVASCULAR: Regular rate and rhythm without murmurs, gallops, or rubs. RESPIRATORY: Clear to auscultation. Breath sounds equal bilaterally. No wheezes , rales, or rhonchi. GASTROINTESTINAL: Abdomen soft, non-tender, nondistended. Normal active bowel sounds MUSCULOSKELETAL: Extremities without clubbing, cyanosis, or edema. NEURO: Alert Laboratory Laboratory Tests Test 08/24/16 08/24/16 08/24/16 08/25/16 10:46 11:14 18:52 01:05 Activated Partial 82.5 SEC 61.8 SEC 44.4 SEC Thromboplast Time White Blood Count 12.7 TH/MM3 11.9 TH/MM3 Red Blood Count 2.92 MIL/MM3 2.93 MIL/MM3 Hemoglobin 9.0 GM/DL 8.8 GM/DL Hematocrit 27.7 % 28.2 % Mean Corpuscular Volume 94.8 FL 96.4 FL Mean Corpuscular Hemoglobin 30.8 PG 30.0 PG Mean Corpuscular Hemoglobin 32.5 % 31.1 % Concent Red Cell Distribution Width 16.7 % 16.6 % Platelet Count 412 TH/MM3 362 TH/MM3 Mean Platelet Volume 8.2 FL 8.2 FL Neutrophils (%) (Auto) % Lymphocytes (%) (Auto) % Monocytes (%) (Auto) % Eosinophils (%) (Auto) % Basophils (%) (Auto) % Neutrophils # (Auto) TH/MM3 Lymphocytes # (Auto) TH/MM3 Monocytes # (Auto) TH/MM3 Eosinophils # (Auto) TH/MM3 Basophils # (Auto) TH/MM3 CBC Comment AUTO DIFF Differential Total Cells 100 Counted Neutrophils % (Manual) 75 % Band Neutrophils % 7 % Lymphocytes % 8 % Monocytes % 6 % Eosinophils % 2 % Basophils % 2 % Neutrophils # (Manual) 10.4 TH/MM3 Differential Comment FINAL DIFF MANUAL Platelet Estimate NORMAL Platelet Morphology Comment NORMAL Test 08/25/16 04:30 Nasal Screen MRSA (PCR) POSITIVE Staphylococcus aureus POSITIVE (PCR)(LAB) Imaging Last Impressions Myocardial Perfusion Scan Nuc Med 08/24/16 0000 Signed Impressions: Service Date/Time: Wednesday, August 24, 2016 11:30 - CONCLUSION: 1. Large fixed perfusion defect centered at the cardiac apex and extending cephalad especially in the inferior wall and septal wall. No significant reversibility to suggest ischemia. 2. Dilated left ventricle with global hypokinesis and ejection fraction 27%%. RISK CATEGORY: High (>3%% Annual Mortality Rate) Jorge Pearce MD Lung Scan-VQ Nuclear Medicine 08/22/16 0000 Signed Impressions: Service Date/Time: August 10:09 - CONCLUSION: Low probability of PE. Bala Rosado MD Lower Extremity Ultrasound 08/22/16 0000 Signed Impressions: Service Date/Time: August 07:51 - CONCLUSION: DVT with partial recanalization present in the left popliteal and peroneal veins Scott Leblanc MD Chest X-Ray 08/21/161920 Signed Impressions: Service Date/Time: Sunday, August 21, 2016 19:40 - CONCLUSION: No evidence of acute cardiopulmonary disease. Scott Austin MD Assessment and Plan Problem List: (1) Ischemic cardiomyopathy Assessment and Plan: continue medical therapy. On coreg; at this time he isn' t on an LEONEL/ARB, presumably due to his renal fxn, but still might be reasonable to add, will defer to his primary content production specialist who will return tomorrow. (2) Chest pain Assessment and Plan: no ischemia on nuc stress. Assessment and Plan Dr. Salmon will return tomorrow to resume care. Problem Qualifiers (1) Chest pain: Qualified Code: R07.9 - Chest pain, unspecified type Tamir Baez MD Aug 25, 2016 09:58
[2016-08-25] MEDS: HEPARIN-D5W INJ 250 ML IV SCH (10:21)
[2016-08-25 10:28] LABS: APTT (PATIENT) 56.3 SEC (24.3-30.1)
--- NOTE | 2016-08-25 11:46 | HHI.GIFU ---
Subjective Remarks patient is resting in bed, still no Bm, he tells me now that he had black tarry stools in the [facility] that stunk up the place. He denies nausea, vomiting or abdomen pain. Objective Vitals I&O Vital Signs Date Time Temp Pulse Resp B/P Pulse Ox O2 Delivery O2 Flow Rate FiO2 08/25/16 10:00 80 08/25/16 09:19 95 Nasal Cannula 2.00 08/25/16 09:00 82 08/25/16 08:00 97.8 85 18 102/52 95 08/25/16 08:00 84 08/25/16 07:00 84 08/25/16 06:00 84 08/25/16 05:00 84 08/25/16 04:00 84 08/25/16 03:00 87 08/25/16 03:00 98.5 87 20 94/59 97 08/25/16 02:00 86 08/25/16 01:00 88 08/25/16 00:00 84 08/24/16 23:00 88 08/24/16 23:00 96.7 86 14 104/47 100 08/24/16 22:00 90 08/24/16 21:00 92 08/24/16 20:00 88 08/24/16 19:00 99 08/24/16 19:00 97.5 92 18 142/65 99 08/24/16 18:00 91 08/24/16 17:02 91 08/24/16 16:30 97 Nasal Cannula 2.00 08/24/16 16:00 92 08/24/16 15:00 98.2 90 18 106/70 96 08/24/16 15:00 92 I/O 08/24/16 08/24/16 08/24/16 08/25/16 08/25/16 08/25/16 07:00 15:00 23:00 07:00 15:00 23:00 Intake Total 405 ml 120 ml 240 ml Output Total 175 ml 300 ml 125 ml Balance 230 ml -180 ml 115 ml Intake Oral 240 ml 120 ml 240 ml IV Total 165 ml Output Urine Total 175 ml 300 ml 125 ml # Bowel Movements 0 Laboratory Laboratory Tests Test 08/24/16 08/25/16 08/25/16 08/25/16 18:52 01:05 04:30 09:38 Activated Partial 61.8 44.4 56.3 Thromboplast Time White Blood Count 11.9 Red Blood Count 2.93 Hemoglobin 8.8 Hematocrit 28.2 Mean Corpuscular Volume 96.4 Mean Corpuscular Hemoglobin 30.0 Mean Corpuscular Hemoglobin 31.1 Concent Red Cell Distribution Width 16.6 Platelet Count 362 Mean Platelet Volume 8.2 Nasal Screen MRSA (PCR) POSITIVE Staphylococcus aureus POSITIVE (PCR)(LAB) Date/Time Procedure Status Source Growth 08/22/16 05:10 Urine Culture - Final Complete Urine Clean Catch 10-50,000 CFU/ML MIXED NANETTE... Imaging Last Impressions Myocardial Perfusion Scan Nuc Med 08/24/16 0000 Signed Impressions: Service Date/Time: Wednesday, August 24, 2016 11:30 - CONCLUSION: 1. Large fixed perfusion defect centered at the cardiac apex and extending cephalad especially in the inferior wall and septal wall. No significant reversibility to suggest ischemia. 2. Dilated left ventricle with global hypokinesis and ejection fraction 27%%. RISK CATEGORY: High (>3%% Annual Mortality Rate) Jorge Pearce MD Lung Scan-V Nuclear Medicine 08/22/16 0000 Signed Impressions: Service Date/Time: August 10:09 - CONCLUSION: Low probability of PE. Bala Rosado MD Lower Extremity Ultrasound 08/22/16 0000 Signed Impressions: Service Date/Time: August 07:51 - CONCLUSION: DVT with partial recanalization present in the left popliteal and peroneal veins Scott Leblanc MD Chest X-Ray 08/21/16 192 Signed Impressions: Service Date/Time: Sunday, August 21, 2016 19:40 - CONCLUSION: No evidence of acute cardiopulmonary disease. Scott Austin MD Physical Exam GENERAL: generalized pallor HEENT: EOMI, normocephalic, atraumatic, no jaundice NECK: Neck is supple CHEST: Chest is clear to auscultation and percussion. CARDIAC: Regular rate and rhythm with no murmur gallop or rubs. ABDOMEN: Soft, nondistended,mild lower abdomen tenderness; no hepatosplenomegaly; bowel sounds are present in all four quadrants. EXTREMITIES: No clubbing, cyanosis, or edema. SKIN: Normal; no rash; no jaundice. HEALTH CENTER MANAGER: No focal deficits; mildly confused. Assessment and Plan Plan ASSESSMENT: - anemia- Hemoccult has been ordered but pt has not had a BM. hh 8.8/28.2. he reports black stools at prison, no bm since arrival. 08/15/16 EGD ----> LA class B esophagitis, gastritis in gastric antrum, old blood in stomach but no clear bleeding areas seen - ischemic cardiomyopathy/DVT. on ischemia on stress test, cleared by cardiology. consider [place] filter -- per cardiology. He is Heparin PLAN: - Clear liquids - EGD/colonoscopy in am - Golytely today - NPO mn - Hold heparin at 6 am for 4 hours - monitor CBC - Hemoccult - transfuse as needed - continue PPI This pt has been seen by myself and Dr Manning and this note is written on his behalf Dee Velarde Aug 25, 2016 11:46
[2016-08-25] MEDS: SUCRALFATE 1 GM/10 ML CUP PO SCH ×3 (11:52→22:43)
[2016-08-25] MEDS ORDERED: PEG (High)/E-LYTE SOLN 4000 ML BTL PO ONE (16:00)
[2016-08-25] MEDS: ONDANSETRON HCL 4 MG/2 ML VIAL IV PUSH PRN (19:12)
[2016-08-25] MEDS: TAMSULOSIN HCL 0.4 MG CAP PO SCH (22:43)
[2016-08-25] MEDS: PRAVASTATIN SOD 40 MG TAB PO SCH (22:44)
[2016-08-25] MEDS: LATANOPROST 0.005% OPHT SOLN 2.5 ML BTL RIGHT EYE SCH (22:46)
[2016-08-26] VITALS (17 sets, daily range): BP systolic 95–119; BP diastolic 54–69; PULSE 74–108; RESP 16–20; TEMP 97.3–97.8; O2SAT 93–100
[2016-08-26] MEDS: RESP: IPRATROPIUM 0.5 MG/2.5 ML NEB NEB SCH ×2 (03:27→09:33)
[2016-08-26] MEDS: LEVOTHYROXINE SODIUM 50 MCG TAB PO SCH (06:00)
[2016-08-26 06:18] LABS: APTT (PATIENT) 48.4 SEC (24.3-30.1)
[2016-08-26] MEDS: INSULIN NovoLIN REGULAR SUPPLEMENTAL SCALE SQ SCH ×3 (06:28→20:50)
--- NOTE | 2016-08-26 08:24 | PD.CARD.PN ---
Subjective Subjective Remarks denies any CV complaints Objective Vital Signs / I&O Vital Signs Date Time Temp Pulse Resp B/P Pulse Ox O2 Delivery O2 Flow Rate FiO2 08/26/16 07:00 84 08/26/16 06:00 86 08/26/16 05:00 86 08/26/16 04:00 74 08/26/16 03:00 97.6 87 20 95/55 96 08/26/16 03:00 87 08/26/16 02:00 86 08/26/16 01:00 86 08/26/16 00:00 90 08/25/16 23:00 98.3 93 18 123/53 99 08/25/16 23:00 90 08/25/16 22:00 90 08/25/16 21:00 88 08/25/16 20:45 100 Nasal Cannula 2.00 08/25/16 20:00 88 08/25/16 19:00 97.4 88 18 141/60 98 08/25/16 19:00 90 08/25/16 18:05 87 08/25/16 17:00 88 08/25/16 16:00 97.7 89 18 125/57 96 08/25/16 16:00 88 08/25/16 15:00 86 08/25/16 14:06 84 08/25/16 13:00 89 08/25/16 12:00 85 08/25/16 12:00 97.6 84 18 131/48 97 08/25/16 11:00 82 08/25/16 10:00 80 08/25/16 09:19 95 Nasal Cannula 2.00 08/25/16 09:00 82 I/O 08/25/16 08/25/16 08/25/16 08/26/16 08/26/16 08/26/16 07:00 15:00 23:00 07:00 15:00 23:00 Intake Total 240 ml 960 ml 850 ml Output Total 125 ml 150 ml 1110 ml Balance 115 ml 810 ml -260 ml Intake Oral 240 ml 960 ml 720 ml IV Total 130 ml Output Urine Total 125 ml 150 ml 410 ml Emesis 700 ml # Bowel Movements 1 5 Physical Exam GENERAL: Well-nourished, well-developed patient in no apparent distress. NECK: No JVD. No carotid bruit. CARDIOVASCULAR: Regular rate and rhythm. S1/S2 no murmur, rub, or gallop. RESPIRATORY: No accessory muscle use. Clear to auscultation. Breath sounds equal bilaterally. GASTROINTESTINAL: Abdomen soft, non-tender, nondistended. MUSCULOSKELETAL: Extremities without clubbing, cyanosis, or edema. Laboratory Laboratory Tests Test 08/25/16 08/26/16 09:38 05:53 Activated Partial 56.3 SEC 48.4 SEC Thromboplast Time Assessment and Plan Problem List: (1) Ischemic cardiomyopathy (2) Chest pain Assessment and Plan Doing well from a CV standpoint. There are no cardiac contraindications for his planned colonoscopy. If he does require IVC filter it can be placed by Dr. Coleman. Dr. Salmon to decide Problem Qualifiers (1) Chest pain: Qualified Code: R07.9 - Chest pain, unspecified type Miguel Dominguez Aug 26, 2016 08:24
[2016-08-26] MEDS: ISOSORBIDE MONONITRATE 30 MG TAB PO SCH (09:25)
[2016-08-26] MEDS: MAGNESIUM OXIDE 400 MG TAB PO SCH (09:25)
[2016-08-26] MEDS: ONDANSETRON HCL 4 MG/2 ML VIAL IV PUSH PRN ×2 (09:25→21:44)
[2016-08-26] MEDS: FUROSEMIDE 20 MG TAB PO SCH (09:25)
[2016-08-26] MEDS: CARVEDILOL 6.25 MG TAB PO SCH ×2 (09:25→22:36)
[2016-08-26] MEDS: DOCUSATE SODIUM 100 MG CAP PO SCH ×2 (09:25→22:37)
[2016-08-26] MEDS: PANTOPRAZOLE SOD 20 MG DELAYED RELEASE TAB PO SCH (09:26)
[2016-08-26] MEDS: SODIUM CHLORIDE 0.9% FLUSH 10 ML FLUSH IV FLUSH SCH ×2 (09:26→20:48)
[2016-08-26] MEDS: TAMSULOSIN HCL 0.4 MG CAP PO SCH (09:26)
[2016-08-26] MEDS: ASPIRIN EC 81 MG TABEC PO SCH (09:26)
[2016-08-26] MEDS: BRIMONIDINE TARTRATE 0.2% OPHT SOLN 5 ML BTL RIGHT EYE SCH ×2 (09:27→20:46)
[2016-08-26] MEDS: TIMOLOL MALEATE 0.5% OPHT SOLN 5 ML BTL RIGHT EYE SCH ×2 (09:27→20:46)
[2016-08-26] MEDS ORDERED: PROPOFOL 200 MG/20 ML AMP IV ONE (11:49)
--- NOTE | 2016-08-26 12:07 | GIPROC ---
[facility] [address] [facility]. [facility], [address] COLONOSCOPY PROCEDURE REPORT EXAM DATE: 08/26/2016 PATIENT NAME: Iron Damico MR #: [id number] BIRTHDATE: 1945 ENDOSCOPIST: Sadie Welch MD ORDER #: [id number] CELLULAR BIOLOGIST: Micheline Gomez and Jonathan Trent STATUS: inpatient INDICATIONS: The patient is a 70 yr old male here for a colonoscopy due to anemia PROCEDURE PERFORMED: Colonoscopy with biopsy MEDICATIONS: None and Per Anesthesia. PREP QUALITY: poor PREP TYPE:GoLytely ESTIMATED BLOOD LOSS: None CONSENT: The patient understands the risks and benefits of the procedure and understands that these risks include, but are not limited to: sedation, allergic reaction, infection, perforation and/or bleeding. Alternative means of evaluation and treatment include, among others: physical exam, x-rays, and/or surgical intervention. The patient elects to proceed with this endoscopic procedure. medical equipment was checked for proper function. Hand hygiene and appropriate measures for infection prevention was taken. After the risks, benefits and alternatives of the procedure were thoroughly explained, Informed consent was verified, confirmed and timeout was successfully executed by the treatment team. A digital exam revealed external hemorrhoids The Pentax [id number] endoscope was introduced through the anus and advanced to the cecum, which was identified by both the appendix and ileocecal valve. The instrument was then slowly withdrawn as the colon was fully examined. COLON FINDINGS: Poor prep polyp descending-7 mm-cold biopsy with complete removal diverticulosis sigmoid,descending. Retroflexed views revealed internal hemorrhoids and Retroflexed views revealed small internal hemorrhoids The scope was then completely withdrawn from the patient and the procedure terminated. PROCEDURE WITHDRAWAL TIME:6minutes ADVERSE EVENTS: There were no complications. IMPRESSIONS: 1. Poor prep polyp descending-7 mm-cold biopsy with complete removal diverticulosis sigmoid,descending 2. Retroflexed views revealed internal hemorrhoids 3. Retroflexed views revealed small internal hemorrhoids 4. Revealed external hemorrhoids RECOMMENDATIONS: 1. Await biopsy results. Biopsy results will not be ready for 7-10 days. If you don't hear from us in two weeks, call our office for results. 2. Benefiber 2 tsp daily 3. Probiotics from any [employer] or health food store 4. Yearly rectal exams RECALL: Colonoscopy, pending biopsy results Sadie Welch MD eSigned: Sadie Welch MD 08/26/2016 12:07 PM cc:
[2016-08-26] MEDS ORDERED: DOPamine INJ PREMIX 500 ML ONE (12:18)
[2016-08-26] MEDS ORDERED: PHENYLEPHRINE HCL 10 MG/ML VIAL ONE (12:47)
[2016-08-26] MEDS ORDERED: *ONDANSETRON 4 MG VIAL PERIprocedural Use ONLY ONE (12:55)
[2016-08-26] MEDS ORDERED: DO NOT ADM ANY ANTICOAGULANT DRUGS PRN (13:00)
--- NOTE | 2016-08-26 13:05 | HHI.PR ---
Subjective Remarks This is a pleasant 70 y/o male with Hypothyroidism, DM II, COPD, CAD, Ischemic Cardiomyopathy, with EF 25% on Echocardiogram 08/03/2016 CKD, CHF, STEMI and Cardiac Arrest 08/04/16, had CPR with return to ROSC, he came to ER with complaint of Right sided chest pain, described as tightness for the past 3 to 4 days, worse with deep inspiration, associated with SOB, discussed at this time with doctor Amandeep Mary she was called by chemistry specialist, recommended to transfuse if Hemoglobin less than 10, stop Aspirin or Plavix, Stop Heparin and Start Apixaban 5 mg by Mouth twice a day, for three months and then decrease to 2.5 mg BID, as per systems software specialist Doctor Jared recommended to perform IVC filter, that could be later today or next morning at this time will continue heparin drip, as per GI specialist Doctor Govind Manning he has Esophagitis, the patient has DVT, will need to be on anticoagulation, No signs of Hemorrhage, 08/24: Status post Lexiscan Stress test, chemistry specialist recommended to discontinue one of the two antiplatelet therapy medicines discontinued Plavix, today will have Lexiscan and then will need EGD/ Colonoscopy as part of workup for Anemia, by now transfuse to keep Hemoglobin above 8 GR/DL. 08/25: Seen in his bedroom in the presence of nurse Miss Bernal, no nausea, vomit or diarrhea, no ischemic disease on Stress test he will have EGD and Colonoscopy by tomorrow. 08/26: Seen in PACU status post procedure performed, as per Anesthesiology he will need to go to Intensive Care Unit, due to that the patient developed Hypotension post procedure, on Pressor medicine Dopamine. he is alert and oriented x 3. No Nausea, vomit or diarrhea. Objective Vital Signs Date Time Temp Pulse Resp B/P Pulse Ox O2 Delivery O2 Flow Rate FiO2 08/26/16 09:35 96 Nasal Cannula 2.00 08/26/16 09:00 82 08/26/16 08:09 85 08/26/16 08:09 97.3 85 18 103/68 98 08/26/16 07:00 84 08/26/16 06:00 86 08/26/16 05:00 86 08/26/16 04:00 74 08/26/16 03:00 97.6 87 20 95/55 96 08/26/16 03:00 87 08/26/16 02:00 86 08/26/16 01:00 86 08/26/16 00:00 90 08/25/16 23:00 98.3 93 18 123/53 99 08/25/16 23:00 90 08/25/16 22:00 90 08/25/16 21:00 88 08/25/16 20:45 100 Nasal Cannula 2.00 08/25/16 20:00 88 08/25/16 19:00 97.4 88 18 141/60 98 08/25/16 19:00 90 08/25/16 18:05 87 08/25/16 17:00 88 08/25/16 16:00 97.7 89 18 125/57 96 08/25/16 16:00 88 08/25/16 15:00 86 08/25/16 14:06 84 I/O 08/25/16 08/25/16 08/25/16 08/26/16 08/26/16 08/26/16 07:00 15:00 23:00 07:00 15:00 23:00 Intake Total 240 ml 960 ml 850 ml Output Total 125 ml 150 ml 1110 ml Balance 115 ml 810 ml -260 ml Intake Oral 240 ml 960 ml 720 ml IV Total 130 ml Output Urine Total 125 ml 150 ml 410 ml Emesis 700 ml # Bowel Movements 1 5 Result Diagram: 08/25/16 0105 08/22/16 0514 Imaging Last Impressions Myocardial Perfusion Scan Nuc Med 08/24/16 0000 Signed Impressions: Service Date/Time: Wednesday, August 24, 2016 11:30 - CONCLUSION: 1. Large fixed perfusion defect centered at the cardiac apex and extending cephalad especially in the inferior wall and septal wall. No significant reversibility to suggest ischemia. 2. Dilated left ventricle with global hypokinesis and ejection fraction 27%%. RISK CATEGORY: High (>3%% Annual Mortality Rate) Jorge Pearce MD Lung Scan-V Nuclear Medicine 08/22/16 0000 Signed Impressions: Service Date/Time: August 10:09 - CONCLUSION: Low probability of PE. Bala Rosado MD Lower Extremity Ultrasound 08/22/16 0000 Signed Impressions: Service Date/Time: August 07:51 - CONCLUSION: DVT with partial recanalization present in the left popliteal and peroneal veins Scott Leblanc MD Chest X-Ray 08/21/16 192 Signed Impressions: Service Date/Time: Sunday, August 21, 2016 19:40 - CONCLUSION: No evidence of acute cardiopulmonary disease. Scott Austin MD Procedures No procedures performed. Other Results Laboratory Tests Test 08/22/16 08/22/16 08/22/16 08/22/16 05:10 05:14 06:45 11:59 Urine Color YELLOW Urine Turbidity HAZY Urine pH 5.0 Urine Specific [place] 1.014 Urine Protein TRACE mg/dL Urine Glucose (UA) NEG mg/dL Urine Ketones NEG mg/dL Urine Occult Blood NEG Urine Nitrite NEG Urine Bilirubin NEG Urine Urobilinogen LESS THAN 2.0 MG/DL Urine Leukocyte Esterase MOD Urine RBC 1 /hpf Urine WBC 25 /hpf Urine Squamous Epithelial 2 /hpf Cells Urine Bacteria OCC /hpf Urine Mucus FEW /lpf Urine Yeast (Budding) OCC Microscopic Urinalysis Comment CULTURE INDICATED D-Dimer Quantitative (PE/DVT) 13.42 MG/L FEU Sodium Level 136 MEQ/L Potassium Level 4.0 MEQ/L Chloride Level 102 MEQ/L Carbon Dioxide Level 29.1 MEQ/L Anion Gap 5 MEQ/L Blood Urea Nitrogen 23 MG/DL Creatinine 1.32 MG/DL Estimat Glomerular Filtration 54 ML/MIN Rate Random Glucose 165 MG/DL Calcium Level 8.4 MG/DL B-Type Natriuretic Peptide 1050 PG/ML Thyroid Stimulating Hormone 3.950 uIU/ML 3rd Gen Blood Type O POSITIVE Antibody Screen NEGATIVE Crossmatch Leukocyte-Reduced Red Blood Cells Blood Bank Comment Total Creatine Kinase 28 U/L Troponin I 0.05 NG/ML Prothrombin Time 11.3 SEC Prothromb Time International 1.0 RATIO Ratio Test 08/24/16 08/25/16 08/25/16 08/26/16 11:14 01:05 04:30 05:53 Neutrophils (%) (Auto) % Lymphocytes (%) (Auto) % Monocytes (%) (Auto) % Eosinophils (%) (Auto) % Basophils (%) (Auto) % Neutrophils # (Auto) TH/MM3 Lymphocytes # (Auto) TH/MM3 Monocytes # (Auto) TH/MM3 Eosinophils # (Auto) TH/MM3 Basophils # (Auto) TH/MM3 CBC Comment AUTO DIFF Differential Total Cells 100 Counted Neutrophils % (Manual) 75 % Band Neutrophils % 7 % Lymphocytes % 8 % Monocytes % 6 % Eosinophils % 2 % Basophils % 2 % Neutrophils # (Manual) 10.4 TH/MM3 Differential Comment FINAL DIFF MANUAL Platelet Estimate NORMAL Platelet Morphology Comment NORMAL White Blood Count 11.9 TH/MM3 Red Blood Count 2.93 MIL/MM3 Hemoglobin 8.8 GM/DL Hematocrit 28.2 % Mean Corpuscular Volume 96.4 FL Mean Corpuscular Hemoglobin 30.0 PG Mean Corpuscular Hemoglobin 31.1 % Concent Red Cell Distribution Width 16.6 % Platelet Count 362 TH/MM3 Mean Platelet Volume 8.2 FL Nasal Screen MRSA (PCR) POSITIVE Staphylococcus aureus POSITIVE (PCR)(LAB) Activated Partial 48.4 SEC Thromboplast Time Objective Remarks GENERAL: No acute distress. SKIN: Cool and dry. HEAD: Atraumatic. Normocephalic. EYES: Extraocular motions intact. No scleral icterus. No injection or drainage. CARDIOVASCULAR: Regular rate and rhythm without murmurs, gallops, or rubs. RESPIRATORY: Decreased breath sounds bilateral. No wheezing or crackles. GASTROINTESTINAL: Abdomen soft, non-tender, No guarding. MUSCULOSKELETAL: Extremities without clubbing, cyanosis, or edema. NEUROLOGICAL: Awake and alert. No focal deficits. Medications and IVs Current Medications Medications (Trade) Dose Ordered Sig/Jacek Route Start Time Stop Time Status Last Admin (NS Flush) 2 ml UNSCH PRN IV FLUSH 08/21/16 23:30 (NS Flush) 2 ml BID IV FLUSH 08/22/16 09:00 08/26/16 09:26 (Narcan Inj) 0.4 mg UNSCH PRN IV 08/21/16 23:30 (Ecotrin Ec) 81 mg DAILY PO 08/22/16 09:00 08/26/16 09:26 (Coreg) 6.25 mg BID PO 08/22/16 09:00 08/26/16 09:25 (Colace) 100 mg BID PO 08/22/16 09:00 08/26/16 09:25 (Lasix) 20 mg DAILY PO 08/22/16 09:00 08/26/16 09:25 (Dixmont 5-325 Mg) 1 tab Q4H PRN PO 08/21/16 23:30 08/25/16 06:23 (Imdur) 30 mg DAILY PO 08/22/16 09:00 08/26/16 09:25 (Synthroid) 50 mcg DAILY@06 PO 08/22/16 06:00 08/26/16 06:00 (Refresh Classic 1.4-0.6% Pf Opth Soln) 1 drop TID PRN EACH EYE 08/21/16 23:30 Patient Own Medication PT OWN MED: Brinzolamide Opth .. BID RIGHT EYE 08/22/16 09:00 Hold (Mag-Ox) 400 mg DAILY PO 08/22/16 09:00 08/26/16 09:25 (Protonix) 20 mg DAILY PO 08/22/16 09:00 08/26/16 09:26 (Pravachol) 40 mg HS PO 08/22/16 21:00 08/25/16 22:44 (Xalatan 0.005% Opth Soln) 1 drop HS RIGHT EYE 08/22/16 21:00 08/25/16 22:46 (Nitrostat Sl) 0.4 mg Q5M PRN SL 08/21/16 23:30 (D50w (Vial) Inj) 25 ml UNSCH PRN IV PUSH 08/21/16 23:30 (Glucagon Inj) 1 mg UNSCH PRN OTHER 08/21/16 23:30 (Alphagan 0.2% Opth Soln) 1 drop Q12HR RIGHT EYE 08/22/16 09:00 08/26/16 09:27 (Timoptic 0.5% Opth Soln) 1 drop Q12HR RIGHT EYE 08/22/16 09:00 08/26/16 09:27 (Heparin Inj) 5,000 units UNSCH PRN IV 08/22/16 16:30 Hold (Heparin Inj) 2,500 units UNSCH PRN IV 08/22/16 16:30 Hold Ondansetron HCl 4 mg 4 mg Q8HR PRN IV PUSH 08/23/16 13:00 08/26/16 09:25 (Heparin-D5W Inj) 250 ml @ 0 mls/hr TITRATE IV 08/23/16 14:00 Hold 08/25/16 10:21 (Mucinex Er) 600 mg BID PO 08/23/16 21:00 08/25/16 22:43 (Carafate Liq) 1 gm ACHS PO 08/25/16 11:00 08/25/16 22:43 (Flomax) 0.4 mg DAILY PO 08/25/16 19:15 08/26/16 09:26 Miscellaneous Information ALL NURSING DEPARTME... UNSCH PRN .XX 08/26/16 13:00 08/27/16 12:59 A/P Assessment and Plan 1. CAD/Ischemic cardiomyopathy with ejection fraction of 25% on echocardiogram dated 08/03/[address] as per Doctor Luis Antonio the Pacemaker was interrogated two months ago and no evidence for firing, he agreed with switch of Plavix for Apixaban as per chemistry specialist he will need to be off one of the Anti-Platelet medicines due to that he is on Heparin and recent GI bleed, status post Stress test and no ischemic disease at this time status post EGD and Colonoscopy. at this time no anticoagulation, seen by systems software specialist and further recommendations after test performed. 2. CKD III Stable 3. COPD on Bronchodilator, Mucolytic and incentive spirometry, not exacerbated at this time 4. History of STEMI with Cardiac Arrest on 08/04/16, status post CPR with ROSC. at this time Hypotensive on Pressors after Procedure performed, will go to Intensive Care Unit. 5. DM II continue sliding scale on Moderate dose due to that the patient has moments where he is NPO. 6. Anemia Hemoglobin 8.6 he had recent GI bleed 08/13/16 7. Hyperlipidemia to continue Statins 8. CAD/CHF Systolic dysfunction EF 25% status post Pacemaker placement DVT prophylaxis with Heparin drip. GI prophylaxis with PPIs and Carafate. Discussed today with Patient and nurse Miss Colvin asked for Intensive care placement and Bi Analyst will follow in CV ICU Discharge Planning Once cleared by Specialists Jeremiah Pruitt MD Aug 26, 2016 13:05
[2016-08-26 13:41] LABS: AUTOMATED NEUTROPHIL # 7.4 TH/MM3 (1.8-7.7); BASOPHIL # 0.1 TH/MM3 (0-0.2); BASOPHIL % 0.8 % (0.0-2.0); EOSINOPHIL # 0.3 TH/MM3 (0-0.4); HEMATOCRIT 26.7 % (39.0-51.0); HEMO FLAGS DIFF FINAL; LYMPH % 7.8 % (9.0-44.0); LYMPHOCYTE # 0.7 TH/MM3 (1.0-4.8); MEAN CELL VOLUME 95.5 FL (80.0-100.0); MEAN CORPUSCULAR HEMOGLOBIN 30.6 PG (27.0-34.0); MEAN CORPUSCULAR HGB CONC 32.1 % (32.0-36.0); NEUT % 78.4 % (16.0-70.0); PLATELET COUNT 334 TH/MM3 (150-450); RED BLOOD COUNT 2.79 MIL/MM3 (4.50-5.90); RED CELL DISTRIBUTION WIDTH 16.5 % (11.6-17.2); WHITE BLOOD COUNT 9.5 TH/MM3 (4.0-11.0)
--- NOTE | 2016-08-26 14:34 | EKG ---
Date Performed: 08/26/2016 Time Performed: 13:30:07 PTAGE: 70 years EKG: ELECTRONIC VENTRICULAR PACEMAKER ABNORMAL RHYTHM ECG NO SIGNIFICANT CHANGE FROM PRIOR ELECT ROCARDIOGRAM. PREVIOUS TRACING : 08/22/2016 08.43 DOCTOR: Dino Funez Interpretating Date/Time 08/26/2016 14:34:06
--- NOTE | 2016-08-26 17:34 | PD.CONS ---
[facility] Service Critical Care Medicine Consult Requested By Dr. Gutierrez Reason for Consult Transient post procedural hypotension resolved Primary Care Physician Miguel Krueger MD History of Present Illness This is a 70-year-old male. Date of admission 08/23/2016. Date of consultation 08/26/2016. Past medical history includes recent restaurant arrest secondary to possible aspiration 07/26. Subsequent admission with GI bleed diagnosed with a LA class B esophagitis. Patient has a history of coronary disease status post CABG, placement of dual-chamber AICD, hypertension, dyslipidemia, chronic ischemic cardiomyopathy ejection 25%, chronic kidney disease stage III, hypothyroidism cataract/glaucoma and and diabetes.t also had anemia. He had an upper endoscopy which showed some old bloodand esophagitis about a week ago. The patient was sent to [facility]. For the past 3-4 days he was having chest tightness, especially to deep breath and the thought was that it could be related to chest compression. The patient looked weak and pale. He denied any nausea or vomiting. Noted to have an anemia of 7.4. Seen in consultation by cardiology. She had a stress test which revealed no fixed reversibility. Noted to have a lower extremity DVT. Original plan was to stop Plavix and to discontinue heparin. Start Apixaban 5 mg by mouth twice a day with decreased to 2.5 mg twice a day. Patient noted to have lower extremity DVT. Heparin drip started. If bleeds Dr. paiz to place IVC filter. Today, patient for EGD/colonoscopy today which revealed essentially normal EGD with biopsies and colonic polyp snared. Post procedure, patient hepatitis requiring dopamine and eventually Juan Manuel-Synephrine. This is been turned off. Patient has any chest pain or shortness of breath. CT abdomen/pelvis currently ordered. Review of Systems Constitutional: COMPLAINS OF: Fatigue, Weight loss, DENIES: Fever, Weight gain Endocrine: DENIES: Polydipsia, Polyuria Eyes: COMPLAINS OF: Blurred vision, Diplopia, Vision loss, DENIES: Eye pain Ears, nose, mouth, throat: DENIES: Tinnitus, Odynophagia Respiratory: DENIES: Cough, Snoring Cardiovascular: DENIES: Chest pain Gastrointestinal: COMPLAINS OF: Black stools, Nausea, DENIES: Abdominal pain, Bloody stools, Vomiting Genitourinary: COMPLAINS OF: Urinary frequency, DENIES: Hematuria Musculoskeletal: DENIES: Joint pain Integumentary: DENIES: Abnormal pigmentation Hematologic/lymphatic: DENIES: Bruising Immunologic/allergic: DENIES: Eczema Neurologic: DENIES: Abnormal gait, Headache Psychiatric: COMPLAINS OF: Confusion, DENIES: Anxiety Past Family Social History Allergies: Coded Allergies: Iodinated Contrast Media (Verified Allergy, Unknown, 08/02/16) Sulfa (Verified Allergy, Unknown, 08/02/16) *MDRO Multi-Drug Resistant Organism (Verified Adverse Reaction, Unknown, ) MRSA PCR Screen POSITIVE - 08/25/2016 Past Medical History Right eye glaucoma/cataract Coronary artery disease COPD Chronic kidney disease stage III Hypothyroidism Diabetes mellitus BPH Internal and external hemorrhoids Sigmoid diverticulosis Colonic polyp LA class B esophagitis Past Surgical History Cataract/glaucoma 2 toes amputated CABG Dual-chamber AICD Reported Medications Plavix (Clopidogrel Bisulfate) 75 Mg Tab 75 Mg PO DAILY Colace (Docusate Sodium) 100 Mg Cap 100 Mg PO BID Ferrous Sulfate 325 Mg Tab 325 Mg PO DAILY Pantoprazole (Pantoprazole Sodium) 40 Mg Tab 40 Mg PO DAILY Hydrocodone-Acetaminophen 5-325 mg Tab 1 Tab PO Q4H PRN Furosemide 20 Mg Tab 20 Mg PO DAILY Brilinta (Ticagrelor) 90 Mg Tab 90 Mg PO BID Multiple Vitamin 1 Tab 1 Tab PO DAILY Omeprazole 20 Mg Tab 20 Mg PO DAILY Magnesium Oxide 500 Mg Tab 500 Mg PO DAILY Nystatin Liq 100,000 unit/ml Susp 6 Ml SWISH-SWAL QID Humalog Inj (Insulin Human Lispro) 1,000 Unit/10 Ml Vial 2-10 Units SQ ACHS Max dose at bedtime:( )units; sugars < 70,(0)units; sugars 150-199,(2)units; sugars 200-249,(4)units; sugars 250-299,(7)units; sugars 300-349,(10)units; sugars more than 349,(12)units. Travatan Z Opth Drops (Travoprost) 0.004 % Soln 1 Drop RIGHT EYE HS Carvedilol 6.25 Mg Tab 6.25 Mg PO BID Zocor (Simvastatin) 20 Mg Tab 20 Mg PO HS Nitroglycerin SL (Nitroglycerin) 0.4 Mg Subl 0.4 Mg SL DIRECTED PRN ONE TABLET UNDER THE TONGUE NEEDED FOR CHEST PAIN, MAY REPEAT EVERY FIVE MINUTES FOR A TOTAL OF 3 DOSES OR CALL 911 IF NO RELIEF Levothyroxine (Levothyroxine Sodium) 50 Mcg Tab 50 Mcg PO DAILY Levemir Flextouch Pen Inj (Insulin Detemir) 300 unit/3 ML Pen 40 Units SQ HS Isosorbide Mononitrate ER (Isosorbide Mononitrate) 30 Mg Adriana 30 Mg PO DAILY Azopt Opth Drops (Brinzolamide) 1% Susp 1 Drop RIGHT EYE BID Combigan Opth Drops (Brimonidine-Timolol Opth Drops) 0.2-0.5% Soln 1 Drop RIGHT EYE Q12HR Aspirin EC Low Dose (Aspirin) 81 Mg Tabec 81 Mg PO DAILY Refresh Opth Drops (Polyvinyl Alcohol-Povidone Opth Drops) 1.4-0.6% Drops 1 Drop EACH EYE TID PRN Ascorbic Acid 500 Mg Tab 500 Mg PO BID Active Ordered Medications Reviewed in EMR Family History Negative cardiac history Social History Tobacco alcohol or IV drug use Physical Exam Vital Signs Vital Signs Date Time Temp Pulse Resp B/P Pulse Ox O2 Delivery O2 Flow Rate FiO2 08/26/16 15:45 101 15 133/63 94 Nasal Cannula 3 08/26/16 15:30 103 15 123/62 94 Nasal Cannula 3 08/26/16 15:15 103 15 119/62 95 Nasal Cannula 3 08/26/16 15:00 107 15 116/57 94 Nasal Cannula 3 08/26/16 14:45 108 15 119/63 94 Nasal Cannula 3 08/26/16 14:40 97.6 108 16 119/63 93 08/26/16 14:30 109 15 109/56 96 Nasal Cannula 3 08/26/16 14:15 109 15 109/56 96 Nasal Cannula 3 08/26/16 14:00 107 16 110/55 95 Nasal Cannula 3 08/26/16 13:45 106 16 95/43 93 Nasal Cannula 3 08/26/16 13:30 108 16 94/47 91 Nasal Cannula 3 08/26/16 13:15 119 16 98/48 91 Nasal Cannula 3 08/26/16 13:00 107 16 88/43 93 Nasal Cannula 3 08/26/16 12:30 94 16 77/29 95 Nasal Cannula 3 08/26/16 12:15 88 16 83/54 99 Nasal Cannula 3 08/26/16 12:10 97.5 88 16 65/44 98 Nasal Cannula 3 08/26/16 09:35 96 Nasal Cannula 2.00 08/26/16 09:00 82 08/26/16 08:09 85 08/26/16 08:09 97.3 85 18 103/68 98 08/26/16 07:00 84 08/26/16 06:00 86 08/26/16 05:00 86 08/26/16 04:00 74 08/26/16 03:00 97.6 87 20 95/55 96 08/26/16 03:00 87 08/26/16 02:00 86 08/26/16 01:00 86 08/26/16 00:00 90 08/25/16 23:00 98.3 93 18 123/53 99 08/25/16 23:00 90 08/25/16 22:00 90 08/25/16 21:00 88 08/25/16 20:45 100 Nasal Cannula 2.00 08/25/16 20:00 88 08/25/16 19:00 97.4 88 18 141/60 98 08/25/16 19:00 90 08/25/16 18:05 87 Physical Exam GENERAL: 70-year-old male, critically ill currently resting in bed in no acute distress SKIN: Warm and dry. No rash HEAD: Atraumatic. Normocephalic. EYES: Pupils equal and round around 2 mm bilaterally and reactive. No scleral icterus. No injection or drainage. ENT: No nasal bleeding or discharge. Mucous membranes pink and moist. NECK: Trachea midline. No JVD. CARDIOVASCULAR: Regular rate and rhythm. S1, S2. No S4. 2/6 faint systolic murmur RESPIRATORY: Ms. breath sounds throughout. Faint and extremities. Breath sounds equal bilaterally. GASTROINTESTINAL: Abdomen soft, non-tender, bile protuberant. Hypoactive bowel sounds are appreciated MUSCULOSKELETAL: Extremities with trace lower extremity edema. No obvious deformities. NEUROLOGICAL: Awake and alert. No obvious cranial nerve deficits. Motor grossly within normal limits. Five out of 5 muscle strength in the arms and legs. Normal speech. Laboratory Laboratory Tests Test 08/26/16 08/26/16 05:53 13:15 Activated Partial 48.4 Thromboplast Time White Blood Count 9.5 Red Blood Count 2.79 Hemoglobin 8.6 Hematocrit 26.7 Mean Corpuscular Volume 95.5 Mean Corpuscular Hemoglobin 30.6 Mean Corpuscular Hemoglobin 32.1 Concent Red Cell Distribution Width 16.5 Platelet Count 334 Mean Platelet Volume 8.6 Neutrophils (%) (Auto) 78.4 Lymphocytes (%) (Auto) 7.8 Monocytes (%) (Auto) 10.0 Eosinophils (%) (Auto) 3.0 Basophils (%) (Auto) 0.8 Neutrophils # (Auto) 7.4 Lymphocytes # (Auto) 0.7 Monocytes # (Auto) 0.9 Eosinophils # (Auto) 0.3 Basophils # (Auto) 0.1 CBC Comment DIFF FINAL Differential Comment Blood Type O POSITIVE Antibody Screen NEGATIVE Crossmatch Leukocyte-Reduced Red Blood Cells Blood Bank Comment Date/Time Procedure Status Source Growth 08/25/16 18:27 Stool Occult Blood (LAINEY) - Final Complete Stool Stool HEMOCCULT POSITIVE 08/22/16 05:10 Urine Culture - Final Complete Urine Clean Catch 10-50,000 CFU/ML MIXED NANETTE... Result Diagram: 08/26/16 1315 08/22/16 0514 Imaging Last Impressions Myocardial Perfusion Scan Nuc Med 08/24/16 0000 Signed Impressions: Service Date/Time: Wednesday, August 24, 2016 11:30 - CONCLUSION: 1. Large fixed perfusion defect centered at the cardiac apex and extending cephalad especially in the inferior wall and septal wall. No significant reversibility to suggest ischemia. 2. Dilated left ventricle with global hypokinesis and ejection fraction 27%%. RISK CATEGORY: High (>3%% Annual Mortality Rate) Jorge Pearce MD Lung Scan-V Nuclear Medicine 08/22/16 0000 Signed Impressions: Service Date/Time: August 10:09 - CONCLUSION: Low probability of PE. Bala Rosado MD Lower Extremity Ultrasound 08/22/16 0000 Signed Impressions: Service Date/Time: August 07:51 - CONCLUSION: DVT with partial recanalization present in the left popliteal and peroneal veins Scott Leblanc MD Chest X-Ray 08/21/161920 Signed Impressions: Service Date/Time: Sunday, August 21, 2016 19:40 - CONCLUSION: No evidence of acute cardiopulmonary disease. Scott Austin MD Assessment and Plan Assessment and Plan Neuro/Psych: Right eye Glaucoma Chronic narcotic use Currently on Boscobel for pain management. Continue Azopt 1% right eye twice a day, latanoprost 0.005% at night and timolol 0.5% 1 drop each eye twice a day CV: Ischemic cardiopathy ejection fraction 25% Status post dual-chamber AICD Coronary disease status post CABG Hypertension Dyslipidemia Followed by Dr. Paiz/cardiology. Nuclear medicine scan revealed EF 27%. Dilated left ventricle with global hypokinesis. Large fixed perfusion defect apex to the inferior septal wall. No reversibility. Coreg 6.25 twice a day, Imdur 30 mg daily will be continued with holding parameters Continue Pravachol 40 mg by mouth daily for dyslipidemia as. On Zocor 20 mg a night at home. Daily aspirin 81 milligrams by mouth daily. Currently off Plavix 75 mg by mouth daily. Original plan to switch to Apixaban 5 mg by mouth twice a day however patient with DVTs heparin drip restarted Currently on heparin drip resumed at 1900 along with aspirin 81 mg daily Resp: COPD Nasal cannula to maintain saturations greater than equal to 92% Incentive Spirometry while awake and sent Currently on Atrovent nebs every 6 hours GI: GI bleed Sigmoid diverticulosis Internal and external hemorrhoids 7 mm colonic polyp EGD today revealed irregular Z line. Normal esophagus. Biopsies of gastric mucosa were performed. Colonoscopy today revealed sigmoid diverticulosis, 7 mm polyp in the descending diverticulitis removed, internal dextro hemorrhoids. Sucralfate 1 g 4 times a day and Protonix 20 mg by mouth daily For CT abdomen/pelvis for GI for anemia. Advance diet as tolerated : BPH Continue Flomax 0.4 mg by mouth daily. Endo: Diabetes mellitus Hypothyroidism Continue Levoxyl 50 mcg by mouth daily. Noted TSH slightly elevated at 3.9 this admission At home on Levemir 40 units at night sliding-scale insulin. Currently on sliding scale insulin/moderate regimen with Accu-Cheks before meals /at bedtime Renal: Chronic kidney disease stage III Monitor urine output Accurate I's and O's Heme: Anemia Transfused 1 unit of PRBCs. Monitor CBC/coags in a.m. ID: Urinary tract infection Monitor for infection Rocephin 1 g IV daily. Follow culture FEN: Replacing electrolytes as clinically indicated MSK: Osteoporosis/osteoarthritis PT evaluate and treat Access Utilize peripheral IV. Central line if indicated Prophylaxis GI - Protonix DVT - SCD/heparin drip Critical Care: The total care time was 55 minutes. Time to perform other separately billable procedures was not included in the critical care time. Patient is stable from a critical care medicine standpoint. We'll transfer care back to hospitalist in a.m. 08/27. Level II consult Code Status Full code Discussed Condition With Patient. Care plan discussed and all questions answered Jacques Belle MD Aug 26, 2016 17:34
[2016-08-26] MEDS ORDERED: DIATRIZOATE MEGLUM/DIATRIZOATE SOD 9 ML CUP PO ONE (18:15)
[2016-08-26] MEDS: HEPARIN-D5W INJ 250 ML IV SCH (19:16)
[2016-08-26] MEDS: LATANOPROST 0.005% OPHT SOLN 2.5 ML BTL RIGHT EYE SCH (20:46)
[2016-08-26] MEDS: MUPIROCIN 2% OINT 1 APPLIC/GM SYR EACH NARE SCH (20:46)
[2016-08-26] MEDS: cefTRIAXone INJ 1,000 MG in SODIUM CHLORIDE 0.9% INJ 100 ML IV SCH (20:47)
--- NOTE | 2016-08-26 21:49 | RADRPT ---
EXAM DATE/TIME: 08/26/2016 21:29 [place] COMPARISON: No previous studies available for comparison. INDICATIONS : Recent GI bleeding with anemia. ORAL CONTRAST: Prescribed oral contrast ingested. RADIATION DOSE: 27.42 CTDIvol (mGy) MEDICAL HISTORY : Congestive heart failure. Renal failure, chronic. Diabetes mellitus type 1.Hiatal hernia. SURGICAL HISTORY : CABG Defibrillator. ENCOUNTER: Subsequent ACUITY: 2 days PAIN SCALE: 5/10 LOCATION: Bilateral lower quadrant TECHNIQUE: Volumetric scanning of the abdomen and pelvis was performed. Using automated exposure control and ad justment of the mA and/or kV according to patient size, radiation dose was kept as low as reasonably achievable to obtain optimal diagnostic quality images. FINDINGS: LOWER LUNGS: Ugfij-[id number]-hfoqnsyi bilateral effusions with basilar atelectasis noted. There is panchamber enlargement of the heart and coronary artery calcification. LIVER: Homogeneous density without lesion. There is no dilation of the biliary tree. No calcified gallston es. SPLEEN: Normal size without lesion. PANCREAS: Within normal limits. KIDNEYS: Normal in size and shape. There is no mass, stone, or hydronephrosis. ADRENAL GLANDS: 24 mm mass right adrenal gland with low Hounsfield unit measurement compatible with an adenoma. VASCULAR: Diffuse atherosclerotic plaque noted. No aneurysm. BOWEL/MESENTERY: There is moderate diverticulosis of the descending and sigmoid portions of the colon. Minimal associa james inflammatory changes. There is free fluid in the left pericolic gutter, nonspecific. ABDOMINAL WALL: Mild body wall edema/anasarca especially left lateral RETROPERITONEUM: There is no lymphadenopathy. BLADDER: No wall thickening or mass. REPRODUCTIVE: Within normal limits. INGUINAL: There is no lymphadenopathy or hernia. MUSCULOSKELETAL: Within normal limits for patient age. CONCLUSION: 1. Moderate diverticulosis with minimal diverticulitis of the left side of the colon. No abscess, per foration or obstruction. 2. Small ascites in the left side of the abdomen, nonspecific. Nothing organized or drainable. 3. Benign-appearing right adrenal adenoma. 4. Effusions and atelectasis of both visualized lung bases. 5. Body wall edema/anasarca. Scott Austin MD on August 26, 2016 at 21:43 Board Certified Radiologist. This report was verified electronically.
[2016-08-26] MEDS: SUCRALFATE 1 GM/10 ML CUP PO SCH (22:36)
[2016-08-26] MEDS: PRAVASTATIN SOD 40 MG TAB PO SCH (22:37)
[2016-08-26] MEDS: guaiFENesin E.R. 600 MG TAB PO SCH (22:37)
[2016-08-27] VITALS (15 sets, daily range): BP systolic 81–116; BP diastolic 50–75; PULSE 82–91; RESP 14–20; TEMP 97.6–98.8; O2SAT 96–98
[2016-08-27] MEDS: RESP: IPRATROPIUM 0.5 MG/2.5 ML NEB NEB SCH ×4 (03:49→20:59)
[2016-08-27 05:12] LABS: AUTOMATED NEUTROPHIL # 5.4 TH/MM3 (1.8-7.7); BASOPHIL # 0.1 TH/MM3 (0-0.2); BASOPHIL % 1.9 % (0.0-2.0); EOSINOPHIL # 0.2 TH/MM3 (0-0.4); EOSINOPHIL % 2.6 % (0.0-4.0); HEMATOCRIT 27.3 % (39.0-51.0); HEMO FLAGS DIFF FINAL; LYMPH % 11.3 % (9.0-44.0); LYMPHOCYTE # 0.9 TH/MM3 (1.0-4.8); MEAN CELL VOLUME 93.8 FL (80.0-100.0); MEAN CORPUSCULAR HEMOGLOBIN 30.3 PG (27.0-34.0); MEAN CORPUSCULAR HGB CONC 32.3 % (32.0-36.0); MONO % 12.7 % (0.0-8.0); NEUT % 71.5 % (16.0-70.0); PLATELET COUNT 300 TH/MM3 (150-450); RED BLOOD COUNT 2.91 MIL/MM3 (4.50-5.90); WHITE BLOOD COUNT 7.6 TH/MM3 (4.0-11.0)
[2016-08-27] MEDS ORDERED: CHLORHEXIDINE GLUCONATE 2 % 1 PACK (2 CLOTHS)(extra cloths) TOPICAL PRN (05:15)
[2016-08-27 05:38] LABS: ALT (GPT) 38 U/L (12-78); ANION GAP 7 MEQ/L (5-15); AST (GOT) 18 U/L (15-37); BICARBONATE 28.6 MEQ/L (21.0-32.0); BLOOD UREA NITROGEN 51 MG/DL (7-18); CHLORIDE 96 MEQ/L (98-107); GLOMERULAR FILTRATION RATE 27 ML/MIN (>89); MAGNESIUM 2.3 MG/DL (1.5-2.5); POTASSIUM 4.6 MEQ/L (3.5-5.1); SODIUM (NA) 132 MEQ/L (136-145)
[2016-08-27 05:41] LABS: ALKALINE PHOSPHATASE 82 U/L (45-117); TOTAL BILIRUBIN ADULT 0.4 MG/DL (0.2-1.0)
[2016-08-27] MEDS: SUCRALFATE 1 GM/10 ML CUP PO SCH ×4 (06:06→21:50)
[2016-08-27] MEDS: LEVOTHYROXINE SODIUM 50 MCG TAB PO SCH (06:06)
[2016-08-27] MEDS: INSULIN NovoLIN REGULAR SUPPLEMENTAL SCALE SQ SCH ×4 (06:06→22:01)
[2016-08-27] MEDS: CARVEDILOL 6.25 MG TAB PO SCH ×2 (07:46→22:01)
[2016-08-27] MEDS: ISOSORBIDE MONONITRATE 30 MG TAB PO SCH (07:47)
[2016-08-27] MEDS: DOCUSATE SODIUM 100 MG CAP PO SCH ×2 (07:54→21:00)
[2016-08-27] MEDS: MAGNESIUM OXIDE 400 MG TAB PO SCH (07:54)
[2016-08-27] MEDS: FUROSEMIDE 20 MG TAB PO SCH (07:54)
[2016-08-27] MEDS: ASPIRIN EC 81 MG TABEC PO SCH (07:54)
[2016-08-27] MEDS: PANTOPRAZOLE SOD 20 MG DELAYED RELEASE TAB PO SCH (07:54)
[2016-08-27] MEDS: TAMSULOSIN HCL 0.4 MG CAP PO SCH (07:54)
[2016-08-27] MEDS: TIMOLOL MALEATE 0.5% OPHT SOLN 5 ML BTL RIGHT EYE SCH ×2 (07:55→21:00)
[2016-08-27] MEDS: MUPIROCIN 2% OINT 1 APPLIC/GM SYR EACH NARE SCH ×2 (07:55→21:50)
[2016-08-27] MEDS: guaiFENesin E.R. 600 MG TAB PO SCH ×2 (07:55→21:50)
[2016-08-27] MEDS: BRIMONIDINE TARTRATE 0.2% OPHT SOLN 5 ML BTL RIGHT EYE SCH ×2 (07:56→21:00)
[2016-08-27] MEDS: SODIUM CHLORIDE 0.9% FLUSH 10 ML FLUSH IV FLUSH SCH ×2 (07:56→22:01)
--- NOTE | 2016-08-27 07:57 | PD.CARD.PN ---
Subjective Subjective Remarks Events of yesterday noted. BP stable off pressors. Objective Vital Signs / I&O Vital Signs Date Time Temp Pulse Resp B/P Pulse Ox O2 Delivery O2 Flow Rate FiO2 08/27/16 06:00 86 08/27/16 04:00 97.7 86 20 105/56 98 08/27/16 04:00 86 08/27/16 03:49 96 Nasal Cannula 3.00 08/27/16 02:00 85 08/27/16 00:00 97.6 86 16 89/53 97 08/27/16 00:00 86 08/26/16 22:00 88 08/26/16 20:00 95 08/26/16 20:00 97.3 95 16 102/54 98 08/26/16 18:00 93 08/26/16 17:00 96 08/26/16 17:00 97.8 96 16 98/61 100 08/26/16 16:20 97.8 95 16 114/69 95 08/26/16 16:15 95 15 114/69 95 Nasal Cannula 3 08/26/16 16:00 97 15 120/65 95 Nasal Cannula 3 08/26/16 15:45 101 15 133/63 94 Nasal Cannula 3 08/26/16 15:30 103 15 123/62 94 Nasal Cannula 3 08/26/16 15:15 103 15 119/62 95 Nasal Cannula 3 08/26/16 15:00 107 15 116/57 94 Nasal Cannula 3 08/26/16 14:45 108 15 119/63 94 Nasal Cannula 3 08/26/16 14:40 97.6 108 16 119/63 93 08/26/16 14:30 109 15 109/56 96 Nasal Cannula 3 08/26/16 14:15 109 15 109/56 96 Nasal Cannula 3 08/26/16 14:00 107 16 110/55 95 Nasal Cannula 3 08/26/16 13:45 106 16 95/43 93 Nasal Cannula 3 08/26/16 13:30 108 16 94/47 91 Nasal Cannula 3 08/26/16 13:15 119 16 98/48 91 Nasal Cannula 3 08/26/16 13:00 107 16 88/43 93 Nasal Cannula 3 08/26/16 12:30 94 16 77/29 95 Nasal Cannula 3 08/26/16 12:15 88 16 83/54 99 Nasal Cannula 3 08/26/16 12:10 97.5 88 16 65/44 98 Nasal Cannula 3 08/26/16 09:35 96 Nasal Cannula 2.00 08/26/16 09:00 82 08/26/16 08:09 85 08/26/16 08:09 97.3 85 18 103/68 98 I/O 08/26/16 08/26/16 08/26/16 08/27/16 08/27/16 08/27/16 07:00 15:00 23:00 07:00 15:00 23:00 Intake Total 850 ml 250 ml 1880 ml 440 ml Output Total 1110 ml 0 ml 450 ml 225 ml Balance -260 ml 250 ml 1430 ml 215 ml Intake Oral 720 ml 960 ml 240 ml IV Total 130 ml 670 ml 200 ml Packed Cells 250 ml Other 250 ml Output Urine Total 410 ml 0 ml 450 ml 225 ml Emesis 700 ml Estimated Blood Loss 0 ml # Bowel Movements 5 Physical Exam Lungs clear RRR Laboratory Laboratory Tests Test 08/26/16 08/27/16 13:15 04:43 White Blood Count 9.5 TH/MM3 7.6 TH/MM3 Red Blood Count 2.79 MIL/MM3 2.91 MIL/MM3 Hemoglobin 8.6 GM/DL 8.8 GM/DL Hematocrit 26.7 % 27.3 % Mean Corpuscular Volume 95.5 FL 93.8 FL Mean Corpuscular Hemoglobin 30.6 PG 30.3 PG Mean Corpuscular Hemoglobin 32.1 % 32.3 % Concent Red Cell Distribution Width 16.5 % 16.0 % Platelet Count 334 TH/MM3 300 TH/MM3 Mean Platelet Volume 8.6 FL 8.2 FL Neutrophils (%) (Auto) 78.4 % 71.5 % Lymphocytes (%) (Auto) 7.8 % 11.3 % Monocytes (%) (Auto) 10.0 % 12.7 % Eosinophils (%) (Auto) 3.0 % 2.6 % Basophils (%) (Auto) 0.8 % 1.9 % Neutrophils # (Auto) 7.4 TH/MM3 5.4 TH/MM3 Lymphocytes # (Auto) 0.7 TH/MM3 0.9 TH/MM3 Monocytes # (Auto) 0.9 TH/MM3 1.0 TH/MM3 Eosinophils # (Auto) 0.3 TH/MM3 0.2 TH/MM3 Basophils # (Auto) 0.1 TH/MM3 0.1 TH/MM3 CBC Comment DIFF FINAL DIFF FINAL Differential Comment Blood Type O POSITIVE Antibody Screen NEGATIVE Crossmatch Leukocyte-Reduced Red Blood Cells Blood Bank Comment Activated Partial 43.0 SEC Thromboplast Time Sodium Level 132 MEQ/L Potassium Level 4.6 MEQ/L Chloride Level 96 MEQ/L Carbon Dioxide Level 28.6 MEQ/L Anion Gap 7 MEQ/L Blood Urea Nitrogen 51 MG/DL Creatinine 2.37 MG/DL Estimat Glomerular Filtration 27 ML/MIN Rate Random Glucose 138 MG/DL Lactic Acid Level 1.2 mmol/L Calcium Level 8.2 MG/DL Phosphorus Level 4.2 MG/DL Magnesium Level 2.3 MG/DL Total Bilirubin 0.4 MG/DL Aspartate Amino Transf 18 U/L (AST/SGOT) Alanine Aminotransferase 38 U/L (ALT/SGPT) Alkaline Phosphatase 82 U/L Total Protein 6.4 GM/DL Albumin 2.3 GM/DL Assessment and Plan Problem List: (1) Ischemic cardiomyopathy (2) Chest pain Assessment and Plan No gross bleeding diathesis found and no apparent contra-indication to anti- coagulation. Will start eliquis and d/c heparin Problem Qualifiers (1) Chest pain: Qualified Code: R07.9 - Chest pain, unspecified type Anastacio Salmon MD Aug 27, 2016 07:57
[2016-08-27] MEDS: BRINZOLAMIDE OPTH RIGHT EYE SCH (09:00)
[2016-08-27] MEDS: APIXABAN 5 MG TABLET PO SCH ×2 (10:16→21:50)
[2016-08-27] MEDS: ACETAMINOPHEN/HYDROcodone 325 MG/5 MG TAB PO PRN (12:19)
--- NOTE | 2016-08-27 14:36 | HHI.PR ---
Subjective Remarks This is a pleasant 70 y/o male with Hypothyroidism, DM II, COPD, CAD, Ischemic Cardiomyopathy, with EF 25% on Echocardiogram 08/03/2016 CKD, CHF, STEMI and Cardiac Arrest 08/04/16, had CPR with return to ROSC, he came to ER with complaint of Right sided chest pain, described as tightness for the past 3 to 4 days, worse with deep inspiration, associated with SOB, discussed at this time with doctor Amandeep Mary she was called by visitor services specialist, recommended to transfuse if Hemoglobin less than 10, stop Aspirin or Plavix, Stop Heparin and Start Apixaban 5 mg by Mouth twice a day, for three months and then decrease to 2.5 mg BID, as per content specialist Doctor Jared recommended to perform IVC filter, that could be later today or next morning at this time will continue heparin drip, as per GI specialist Doctor Govind Manning he has Esophagitis, the patient has DVT, will need to be on anticoagulation. 08/24: Status post Lexiscan Stress test, visitor services specialist recommended to discontinue one of the two antiplatelet therapy medicines discontinued Plavix, today will have Lexiscan and then will need EGD/ Colonoscopy as part of workup for Anemia, by now transfuse to keep Hemoglobin above 8 GR/DL. 08/25: Seen in his bedroom in the presence of nurse Miss Bernal, no nausea, vomit or diarrhea, no ischemic disease on Stress test he will have EGD and Colonoscopy by tomorrow. 08/26: Seen in PACU status post procedure performed, as per Anesthesiology he will need to go to Intensive Care Unit, due to that the patient developed Hypotension post procedure, on Pressor medicine Dopamine. he is alert and oriented x 3. No Nausea, vomit or diarrhea. 08/27: Initially transferred to Intensive Care Unit yesterday after Colonoscopy performed and developed Hypotension started on Dopamine and followed by heat plant specialist, as we know he has Diagnosis of LA class B esophagitis, CAD status post CABG, as per Factory Laborer off pressors and okay to come back for Medicine management. Seen in Intensive Care Unit in the presence of nurse Miss Linder, improving condition, alert and oriented x 3. Objective Vital Signs Date Time Temp Pulse Resp B/P Pulse Ox O2 Delivery O2 Flow Rate FiO2 08/27/16 10:00 82 08/27/16 08:34 98 Nasal Cannula 3.00 08/27/16 08:00 98.4 86 15 108/57 98 08/27/16 08:00 86 08/27/16 06:00 86 08/27/16 04:00 97.7 86 20 105/56 98 08/27/16 04:00 86 08/27/16 03:49 96 Nasal Cannula 3.00 08/27/16 02:00 85 08/27/16 00:00 97.6 86 16 89/53 97 08/27/16 00:00 86 08/26/16 22:00 88 08/26/16 20:00 95 08/26/16 20:00 97.3 95 16 102/54 98 08/26/16 18:00 93 08/26/16 17:00 96 08/26/16 17:00 97.8 96 16 98/61 100 08/26/16 16:20 97.8 95 16 114/69 95 08/26/16 16:15 95 15 114/69 95 Nasal Cannula 3 08/26/16 16:00 97 15 120/65 95 Nasal Cannula 3 08/26/16 15:45 101 15 133/63 94 Nasal Cannula 3 08/26/16 15:30 103 15 123/62 94 Nasal Cannula 3 08/26/16 15:15 103 15 119/62 95 Nasal Cannula 3 08/26/16 15:00 107 15 116/57 94 Nasal Cannula 3 08/26/16 14:45 108 15 119/63 94 Nasal Cannula 3 08/26/16 14:40 97.6 108 16 119/63 93 I/O 08/26/16 08/26/16 08/26/16 08/27/16 08/27/16 08/27/16 07:00 15:00 23:00 07:00 15:00 23:00 Intake Total 850 ml 250 ml 1880 ml 440 ml Output Total 1110 ml 0 ml 450 ml 225 ml Balance -260 ml 250 ml 1430 ml 215 ml Intake Oral 720 ml 960 ml 240 ml IV Total 130 ml 670 ml 200 ml Packed Cells 250 ml Other 250 ml Output Urine Total 410 ml 0 ml 450 ml 225 ml Emesis 700 ml Estimated Blood Loss 0 ml # Bowel Movements 5 Result Diagram: 08/27/16 0443 08/27/16 0443 Imaging Last Impressions Abdomen/Pelvis CT 08/26/16 0000 Signed Impressions: Service Date/Time: Friday, August 26, 2016 21:29 - CONCLUSION: 1. Moderate diverticulosis with minimal diverticulitis of the left side of the colon. No abscess, perforation or obstruction. 2. Small ascites in the left side of the abdomen, nonspecific. Nothing organized or drainable. 3. Benign-appearing right adrenal adenoma. 4. Effusions and atelectasis of both visualized lung bases. 5. Body wall edema/anasarca. Scott Austin MD Myocardial Perfusion Scan [facility] 08/24/16 0000 Signed Impressions: Service Date/Time: Wednesday, August 24, 2016 11:30 - CONCLUSION: 1. Large fixed perfusion defect centered at the cardiac apex and extending cephalad especially in the inferior wall and septal wall. No significant reversibility to suggest ischemia. 2. Dilated left ventricle with global hypokinesis and ejection fraction 27%%. RISK CATEGORY: High (>3%% Annual Mortality Rate) Jorge Pearce MD Lung Scan- Nuclear Medicine 08/22/16 0000 Signed Impressions: Service Date/Time: August 10:09 - CONCLUSION: Low probability of PE. Bala Rosado MD Lower Extremity Ultrasound 08/22/16 0000 Signed Impressions: Service Date/Time: August 07:51 - CONCLUSION: DVT with partial recanalization present in the left popliteal and peroneal veins Scott Leblanc MD Chest X-Ray 08/21/16 192 Signed Impressions: Service Date/Time: Sunday, August 21, 2016 19:40 - CONCLUSION: No evidence of acute cardiopulmonary disease. Scott Austin MD Procedures Colonoscopy Colonoscopy 08/26/16 7 mm polyp on descending Colon status post Cold biopsy Internal Hemorrhoids and External Hemorrhoids. Other Results Laboratory Tests Test 08/24/16 08/25/16 08/26/16 08/27/16 11:14 04:30 13:15 04:43 Differential Total Cells 100 Counted Neutrophils % (Manual) 75 % Band Neutrophils % 7 % Lymphocytes % 8 % Monocytes % 6 % Eosinophils % 2 % Basophils % 2 % Neutrophils # (Manual) 10.4 TH/MM3 Platelet Estimate NORMAL Platelet Morphology Comment NORMAL Nasal Screen MRSA (PCR) POSITIVE Staphylococcus aureus POSITIVE (PCR)(LAB) Blood Type O POSITIVE Antibody Screen NEGATIVE Crossmatch Leukocyte-Reduced Red Blood Cells Blood Bank Comment White Blood Count 7.6 TH/MM3 Red Blood Count 2.91 MIL/MM3 Hemoglobin 8.8 GM/DL Hematocrit 27.3 % Mean Corpuscular Volume 93.8 FL Mean Corpuscular Hemoglobin 30.3 PG Mean Corpuscular Hemoglobin 32.3 % Concent Red Cell Distribution Width 16.0 % Platelet Count 300 TH/MM3 Mean Platelet Volume 8.2 FL Neutrophils (%) (Auto) 71.5 % Lymphocytes (%) (Auto) 11.3 % Monocytes (%) (Auto) 12.7 % Eosinophils (%) (Auto) 2.6 % Basophils (%) (Auto) 1.9 % Neutrophils # (Auto) 5.4 TH/MM3 Lymphocytes # (Auto) 0.9 TH/MM3 Monocytes # (Auto) 1.0 TH/MM3 Eosinophils # (Auto) 0.2 TH/MM3 Basophils # (Auto) 0.1 TH/MM3 CBC Comment DIFF FINAL Differential Comment Activated Partial 43.0 SEC Thromboplast Time Sodium Level 132 MEQ/L Potassium Level 4.6 MEQ/L Chloride Level 96 MEQ/L Carbon Dioxide Level 28.6 MEQ/L Anion Gap 7 MEQ/L Blood Urea Nitrogen 51 MG/DL Creatinine 2.37 MG/DL Estimat Glomerular Filtration 27 ML/MIN Rate Random Glucose 138 MG/DL Lactic Acid Level 1.2 mmol/L Calcium Level 8.2 MG/DL Phosphorus Level 4.2 MG/DL Magnesium Level 2.3 MG/DL Total Bilirubin 0.4 MG/DL Aspartate Amino Transf 18 U/L (AST/SGOT) Alanine Aminotransferase 38 U/L (ALT/SGPT) Alkaline Phosphatase 82 U/L Total Protein 6.4 GM/DL Albumin 2.3 GM/DL Objective Remarks GENERAL: No acute distress. SKIN: Cool and dry. HEAD: Atraumatic. Normocephalic. EYES: Extraocular motions intact. No scleral icterus. No injection or drainage. CARDIOVASCULAR: Regular rate and rhythm without murmurs, gallops, or rubs. RESPIRATORY: Decreased breath sounds bilateral. No wheezing or crackles. GASTROINTESTINAL: Abdomen soft, non-tender, No guarding. MUSCULOSKELETAL: Extremities without clubbing, cyanosis, or edema. NEUROLOGICAL: Awake and alert. No focal deficits. Medications and IVs Current Medications Medications (Trade) Dose Ordered Sig/Jacek Route Start Time Stop Time Status Last Admin (NS Flush) 2 ml UNSCH PRN IV FLUSH 08/21/16 23:30 (NS Flush) 2 ml BID IV FLUSH 08/22/16 09:00 08/27/16 07:56 (Narcan Inj) 0.4 mg UNSCH PRN IV 08/21/16 23:30 (Ecotrin Ec) 81 mg DAILY PO 08/22/16 09:00 08/27/16 07:54 (Coreg) 6.25 mg BID PO 08/22/16 09:00 08/26/16 22:36 (Colace) 100 mg BID PO 08/22/16 09:00 08/27/16 07:54 (Lasix) 20 mg DAILY PO 08/22/16 09:00 08/27/16 07:54 ([place] 5-325 Mg) 1 tab Q4H PRN PO 08/21/16 23:30 08/27/16 12:19 (Imdur) 30 mg DAILY PO 08/22/16 09:00 08/26/16 09:25 (Synthroid) 50 mcg DAILY@06 PO 08/22/16 06:00 08/27/16 06:06 (Refresh Classic 1.4-0.6% Pf Opth Soln) 1 drop TID PRN EACH EYE 08/21/16 23:30 Patient Own Medication PT OWN MED: Brinzolamide Opth .. BID RIGHT EYE 08/22/16 09:00 (Mag-Ox) 400 mg DAILY PO 08/22/16 09:00 08/27/16 07:54 (Protonix) 20 mg DAILY PO 08/22/16 09:00 08/27/16 07:54 (Pravachol) 40 mg HS PO 08/22/16 21:00 08/26/16 22:37 (Xalatan 0.005% Opth Soln) 1 drop HS RIGHT EYE 08/22/16 21:00 08/26/16 20:46 (Nitrostat Sl) 0.4 mg Q5M PRN SL 08/21/16 23:30 (D50w (Vial) Inj) 25 ml UNSCH PRN IV PUSH 08/21/16 23:30 (Glucagon Inj) 1 mg UNSCH PRN OTHER 08/21/16 23:30 (Alphagan 0.2% Opth Soln) 1 drop Q12HR RIGHT EYE 08/22/16 09:00 08/27/16 07:56 (Timoptic 0.5% Opth Soln) 1 drop Q12HR RIGHT EYE 08/22/16 09:00 08/27/16 07:55 (Heparin Inj) 5,000 units UNSCH PRN IV 08/22/16 16:30 (Heparin Inj) 2,500 units UNSCH PRN IV 08/22/16 16:30 (Zofran Inj) 4 mg Q8HR PRN IV PUSH 08/23/16 13:00 08/26/16 21:44 (Mucinex Er) 600 mg BID PO 08/23/16 21:00 08/27/16 07:55 (Carafate Liq) 1 gm ACHS PO 08/25/16 11:00 08/27/16 12:00 (Flomax) 0.4 mg DAILY PO 08/25/16 19:15 08/27/16 07:54 Mupirocin 1 applic 1 applic Taper BID EACH NARE 08/26/16 21:00 08/22/17 20:59 08/27/16 07:55 (Rocephin Inj/NS Inj) 100 ml @ 200 mls/hr Q24H IV 08/26/16 20:00 08/26/16 20:47 Miscellaneous Information Patient in critical care unit? Ass... [id number] .XX 08/27/16 05:15 08/27/16 05:04 (Chlorhexidine 2% Cloth) 3 pack DAILY@04 TOPICAL 08/28/16 04:00 09/01/16 04:01 (Chlorhexidine 2% Cloth) 3 pack UNSCH PRN TOPICAL 08/27/16 05:15 09/01/16 05:02 (Eliquis) 5 mg BID PO 08/27/16 09:00 08/27/16 10:16 A/P Assessment and Plan 1. CAD Status post CABG/Ischemic cardiomyopathy with ejection fraction of 25% on echocardiogram dated 08/03/[address] as per Doctor Salmon the Pacemaker was interrogated two months ago and no evidence for firing, he agreed with switch of Plavix for Apixaban as per visitor services specialist he will need to be off one of the Anti-Platelet medicines due to that he is on Heparin and recent GI bleed, status post Stress test and no ischemic disease, as per content specialist recommended to switch to Eliquis and discontinue Heparin. 2. CKD III worsening today her baseline is around 1.9 will add IV fluids low infusion because he is not eating or drinking well. giving gentle hydration. 3. COPD on Bronchodilator, Mucolytic and incentive spirometry, not exacerbated at this time 4. History of STEMI with Cardiac Arrest on 08/04/16, status post CPR with ROSC. at this time Hypotensive on Pressors after Procedure performed, will go to Intensive Care Unit. 5. DM II continue sliding scale on Moderate dose due to that the patient has moments where he is NPO. 6. Anemia Hemoglobin 8.8 he had recent GI bleed 08/13/16 7. Hyperlipidemia to continue Statins 8. CAD/CHF Systolic dysfunction EF 25% status post Pacemaker placement 9. Hypertension controlled. 10. GI bleed/Sigmoid diverticulosis/Internal and External Hemorrhoids/7mm Colonic Polyps Continue PPI and Carafate. 11. BPH to continue Flomax 0.4 mg daily. 12. UTI on Rocephin following cultures. 13. 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 contact precautions. DVT prophylaxis with Eliquis GI prophylaxis with PPIs and Carafate. PT evaluate and treat Code Status Full code Discussed Condition With Patient and nurse Miss Linder with His sister Mrs. Nadege Damico to the phone number [phone] Discharge Planning Once cleared by Specialists Jeremiah Pruitt MD Aug 27, 2016 14:36
[2016-08-27] MEDS: SODIUM CHLOR 0.9% 1000 ML INJ 1,000 ML IV SCH (16:00)
--- NOTE | 2016-08-27 16:48 | HHI.GIFU ---
Subjective Remarks Pt resting comfortably in bed, denies n/v, abdominal pain, bleeding. Objective Vitals I&O Vital Signs Date Time Temp Pulse Resp B/P Pulse Ox O2 Delivery O2 Flow Rate FiO2 08/27/16 16:00 98.8 86 15 104/60 96 08/27/16 16:00 86 08/27/16 14:00 87 08/27/16 12:00 98.5 85 15 116/75 98 08/27/16 12:00 85 08/27/16 10:00 82 08/27/16 08:34 98 Nasal Cannula 3.00 08/27/16 08:00 98.4 86 15 108/57 98 08/27/16 08:00 86 08/27/16 06:00 86 08/27/16 04:00 97.7 86 20 105/56 98 08/27/16 04:00 86 08/27/16 03:49 96 Nasal Cannula 3.00 08/27/16 02:00 85 08/27/16 00:00 97.6 86 16 89/53 97 08/27/16 00:00 86 08/26/16 22:00 88 08/26/16 20:00 95 08/26/16 20:00 97.3 95 16 102/54 98 08/26/16 18:00 93 08/26/16 17:00 96 08/26/16 17:00 97.8 96 16 98/61 100 I/O 08/26/16 08/26/16 08/26/16 08/27/16 08/27/16 08/27/16 07:00 15:00 23:00 07:00 15:00 23:00 Intake Total 850 ml 250 ml 1880 ml 440 ml 415 ml Output Total 1110 ml 0 ml 450 ml 225 ml 403 ml Balance -260 ml 250 ml 1430 ml 215 ml 12 ml Intake Oral 720 ml 960 ml 240 ml 360 ml IV Total 130 ml 670 ml 200 ml 55 ml Packed Cells 250 ml Other 250 ml Output Urine Total 410 ml 0 ml 450 ml 225 ml 400 ml Stool Total 3 ml Emesis 700 ml Estimated Blood Loss 0 ml # Bowel Movements 5 Laboratory Laboratory Tests Test 08/27/16 04:43 White Blood Count 7.6 Red Blood Count 2.91 Hemoglobin 8.8 Hematocrit 27.3 Mean Corpuscular Volume 93.8 Mean Corpuscular Hemoglobin 30.3 Mean Corpuscular Hemoglobin 32.3 Concent Red Cell Distribution Width 16.0 Platelet Count 300 Mean Platelet Volume 8.2 Neutrophils (%) (Auto) 71.5 Lymphocytes (%) (Auto) 11.3 Monocytes (%) (Auto) 12.7 Eosinophils (%) (Auto) 2.6 Basophils (%) (Auto) 1.9 Neutrophils # (Auto) 5.4 Lymphocytes # (Auto) 0.9 Monocytes # (Auto) 1.0 Eosinophils # (Auto) 0.2 Basophils # (Auto) 0.1 CBC Comment DIFF FINAL Differential Comment Activated Partial 43.0 Thromboplast Time Sodium Level 132 Potassium Level 4.6 Chloride Level 96 Carbon Dioxide Level 28.6 Anion Gap 7 Blood Urea Nitrogen 51 Creatinine 2.37 Estimat Glomerular Filtration 27 Rate Random Glucose 138 Lactic Acid Level 1.2 Calcium Level 8.2 Phosphorus Level 4.2 Magnesium Level 2.3 Total Bilirubin 0.4 Aspartate Amino Transf 18 (AST/SGOT) Alanine Aminotransferase 38 (ALT/SGPT) Alkaline Phosphatase 82 Total Protein 6.4 Albumin 2.3 Date/Time Procedure Status Source Growth 08/25/16 18:27 Stool Occult Blood ([facility]INEY) - Final Complete Stool Stool HEMOCCULT POSITIVE Imaging Last Impressions Abdomen/Pelvis CT 08/26/16 0000 Signed Impressions: Service Date/Time: Friday, August 26, 2016 21:29 - CONCLUSION: 1. Moderate diverticulosis with minimal diverticulitis of the left side of the colon. No abscess, perforation or obstruction. 2. Small ascites in the left side of the abdomen, nonspecific. Nothing organized or drainable. 3. Benign-appearing right adrenal adenoma. 4. Effusions and atelectasis of both visualized lung bases. 5. Body wall edema/anasarca. Scott Austin MD Myocardial Perfusion Scan Nuc Med 08/24/16 0000 Signed Impressions: Service Date/Time: Wednesday, August 24, 2016 11:30 - CONCLUSION: 1. Large fixed perfusion defect centered at the cardiac apex and extending cephalad especially in the inferior wall and septal wall. No significant reversibility to suggest ischemia. 2. Dilated left ventricle with global hypokinesis and ejection fraction 27%%. RISK CATEGORY: High (>3%% Annual Mortality Rate) Jorge Pearce MD Lung Scan- Nuclear Medicine 08/22/16 0000 Signed Impressions: Service Date/Time: August 10:09 - CONCLUSION: Low probability of PE. Bala Rosado MD Lower Extremity Ultrasound 08/22/16 0000 Signed Impressions: Service Date/Time: August 07:51 - CONCLUSION: DVT with partial recanalization present in the left popliteal and peroneal veins Scott Leblanc MD Chest X-Ray 08/21/16 1921 Signed Impressions: Service Date/Time: Sunday, August 21, 2016 19:40 - CONCLUSION: No evidence of acute cardiopulmonary disease. Scott Austin MD Physical Exam GENERAL: generalized pallor HEENT: EOMI, normocephalic, atraumatic, no jaundice NECK: Neck is supple CHEST: Chest is clear to auscultation and percussion. CARDIAC: Regular rate and rhythm with no murmur gallop or rubs. ABDOMEN: Soft, nondistended,mild lower abdomen tenderness; no hepatosplenomegaly; bowel sounds are present in all four quadrants. EXTREMITIES: No clubbing, cyanosis, or edema. SKIN: Normal; no rash; no jaundice. DRAWING SUPERVISOR: No focal deficits; mildly confused. Assessment and Plan Plan ASSESSMENT: - anemia- Hemoccult positive. hh 8.8/27.3. CT 08/26/16 ---> 1. Moderate diverticulosis with minimal diverticulitis of the left side of the colon. No abscess, perforation or obstruction. 2. Small ascites in the left side of the abdomen, nonspecific. Nothing organized or drainable. 08/26/16 s/p colonoscopy - --> poor prep, 7mm polyp found and removed, diverticulosis. 08/15/16 EGD ----> [place] class B esophagitis, gastritis in gastric antrum, old blood in stomach but no clear bleeding areas seen - ischemic cardiomyopathy/DVT. on ischemia on stress test, cleared by cardiology. consider [place] filter -- per cardiology. PLAN: - DELIO - monitor CBC - transfuse as needed - continue PPI This pt has been seen by myself and Dr Welch and this note is written on her behalf Keena Madsen Aug 27, 2016 16:48
[2016-08-27 20:57] LABS: APTT (PATIENT) 31.3 SEC (24.3-30.1)
[2016-08-27] MEDS: LATANOPROST 0.005% OPHT SOLN 2.5 ML BTL RIGHT EYE SCH (21:00)
[2016-08-27] MEDS: PRAVASTATIN SOD 40 MG TAB PO SCH (21:50)
[2016-08-27] MEDS: cefTRIAXone INJ 1,000 MG in SODIUM CHLORIDE 0.9% INJ 100 ML IV SCH (21:50)
[2016-08-28] VITALS (13 sets, daily range): BP systolic 100–126; BP diastolic 55–66; PULSE 88–94; RESP 15–18; TEMP 96.6–98.8; O2SAT 95–98
[2016-08-28] MEDS: RESP: IPRATROPIUM 0.5 MG/2.5 ML NEB NEB SCH ×4 (03:48→22:20)
[2016-08-28 05:14] LABS: HEMATOCRIT 27.8 % (39.0-51.0); MEAN CELL VOLUME 94.3 FL (80.0-100.0); MEAN CORPUSCULAR HGB CONC 32.9 % (32.0-36.0); PLATELET COUNT 311 TH/MM3 (150-450); RED BLOOD COUNT 2.95 MIL/MM3 (4.50-5.90); RED CELL DISTRIBUTION WIDTH 16.1 % (11.6-17.2); REVIEW FLAG FINAL; WHITE BLOOD COUNT 7.6 TH/MM3 (4.0-11.0)
[2016-08-28 05:40] LABS: BICARBONATE 27.7 MEQ/L (21.0-32.0); POTASSIUM 4.6 MEQ/L (3.5-5.1)
[2016-08-28] MEDS: INSULIN NovoLIN REGULAR SUPPLEMENTAL SCALE SQ SCH ×4 (07:00→22:17)
[2016-08-28] MEDS: LEVOTHYROXINE SODIUM 50 MCG TAB PO SCH (07:53)
[2016-08-28] MEDS: SUCRALFATE 1 GM/10 ML CUP PO SCH ×4 (07:53→22:02)
[2016-08-28] MEDS: CHLORHEXIDINE GLUCONATE 2 % 1 PACK (2 CLOTHS)(taper/protocol) TOPICAL SCH (07:53)
--- NOTE | 2016-08-28 08:11 | HHI.PR ---
Subjective Remarks This is a pleasant 70 y/o male with Hypothyroidism, DM II, COPD, CAD, Ischemic Cardiomyopathy, with EF 25% on Echocardiogram 08/03/2016 CKD, CHF, STEMI and Cardiac Arrest 08/04/16, had CPR with return to ROSC, he came to ER with complaint of Right sided chest pain, described as tightness for the past 3 to 4 days, worse with deep inspiration, associated with SOB, discussed at this time with doctor Amandeep Mary she was called by program research specialist, recommended to transfuse if Hemoglobin less than 10, stop Aspirin or Plavix, Stop Heparin and Start Apixaban 5 mg by Mouth twice a day, for three months and then decrease to 2.5 mg BID, as per mental health specialist Doctor Jared recommended to perform IVC filter, that could be later today or next morning at this time will continue heparin drip, as per GI specialist Doctor Govind Manning he has Esophagitis, the patient has DVT, will need to be on anticoagulation. 08/24: Status post Lexiscan Stress test, program research specialist recommended to discontinue one of the two antiplatelet therapy medicines discontinued Plavix, today will have Lexiscan and then will need EGD/ Colonoscopy as part of workup for Anemia, by now transfuse to keep Hemoglobin above 8 GR/DL. 08/25: Seen in his bedroom in the presence of nurse Miss Bernal, no nausea, vomit or diarrhea, no ischemic disease on Stress test he will have EGD and Colonoscopy by tomorrow. 08/26: Seen in PACU status post procedure performed, as per Anesthesiology he will need to go to Intensive Care Unit, due to that the patient developed Hypotension post procedure, on Pressor medicine Dopamine. he is alert and oriented x 3. 08/27: Initially transferred to Intensive Care Unit yesterday after Colonoscopy performed and developed Hypotension started on Dopamine and followed by simulation specialist, as we know he has Diagnosis of LA class B esophagitis, CAD status post CABG, as per Shoveler off pressors and okay to come back for Medicine management. 08/28: Seen in his bedroom in the presence of Physical Therapy specialist, he needs to go to SNF to continue rehabilitation, no Nausea, Vomit or diarrhea. Objective Vital Signs Date Time Temp Pulse Resp B/P Pulse Ox O2 Delivery O2 Flow Rate FiO2 08/28/16 06:00 92 08/28/16 04:00 92 08/28/16 04:00 98.8 92 18 110/65 97 08/28/16 03:48 96 Nasal Cannula 3.00 08/28/16 02:00 89 08/28/16 00:00 98.6 92 16 104/64 97 08/28/16 00:00 92 08/27/16 22:00 91 08/27/16 20:59 96 Nasal Cannula 3.00 08/27/16 20:00 98.5 90 14 81/50 96 08/27/16 20:00 90 08/27/16 18:00 88 08/27/16 16:00 98.8 86 15 104/60 96 08/27/16 16:00 86 08/27/16 14:00 87 08/27/16 12:00 98.5 85 15 116/75 98 08/27/16 12:00 85 08/27/16 10:00 82 08/27/16 08:34 98 Nasal Cannula 3.00 I/O 08/27/16 08/27/16 08/27/16 08/28/16 08/28/16 08/28/16 07:00 15:00 23:00 07:00 15:00 23:00 Intake Total 440 ml 415 ml 1114 ml Output Total 225 ml 403 ml 751 ml Balance 215 ml 12 ml 363 ml Intake Oral 240 ml 360 ml 480 ml IV Total 200 ml 55 ml 634 ml Output Urine Total 225 ml 400 ml 750 ml Stool Total 3 ml 1 ml Result Diagram: 08/28/16 0449 08/28/16 0449 Imaging Last Impressions Abdomen/Pelvis CT 08/26/16 0000 Signed Impressions: Service Date/Time: Friday, August 26, 2016 21:29 - CONCLUSION: 1. Moderate diverticulosis with minimal diverticulitis of the left side of the colon. No abscess, perforation or obstruction. 2. Small ascites in the left side of the abdomen, nonspecific. Nothing organized or drainable. 3. Benign-appearing right adrenal adenoma. 4. Effusions and atelectasis of both visualized lung bases. 5. Body wall edema/anasarca. Scott Austin MD Myocardial Perfusion Scan Nuc Med 08/24/16 0000 Signed Impressions: Service Date/Time: Wednesday, August 24, 2016 11:30 - CONCLUSION: 1. Large fixed perfusion defect centered at the cardiac apex and extending cephalad especially in the inferior wall and septal wall. No significant reversibility to suggest ischemia. 2. Dilated left ventricle with global hypokinesis and ejection fraction 27%%. RISK CATEGORY: High (>3%% Annual Mortality Rate) Jorge Pearce MD Lung Scan-VQ Nuclear Medicine 08/22/16 0000 Signed Impressions: Service Date/Time: August 10:09 - CONCLUSION: Low probability of PE. Bala Rosado MD Lower Extremity Ultrasound 08/22/16 0000 Signed Impressions: Service Date/Time: August 07:51 - CONCLUSION: DVT with partial recanalization present in the left popliteal and peroneal veins Scott Leblanc MD Chest X-Ray 08/21/16 192 Signed Impressions: Service Date/Time: Sunday, August 21, 2016 19:40 - CONCLUSION: No evidence of acute cardiopulmonary disease. Scott Austin MD Procedures Colonoscopy Colonoscopy 08/26/16 7 mm polyp on descending Colon status post Cold biopsy Internal Hemorrhoids and External Hemorrhoids. Other Results Laboratory Tests Test 08/24/16 08/25/16 08/26/16 08/27/16 11:14 04:30 13:15 04:43 Differential Total Cells 100 Counted Neutrophils % (Manual) 75 % Band Neutrophils % 7 % Lymphocytes % 8 % Monocytes % 6 % Eosinophils % 2 % Basophils % 2 % Neutrophils # (Manual) 10.4 TH/MM3 Platelet Estimate NORMAL Platelet Morphology Comment NORMAL Nasal Screen MRSA (PCR) POSITIVE Staphylococcus aureus POSITIVE (PCR)(LAB) Blood Type O POSITIVE Antibody Screen NEGATIVE Crossmatch Leukocyte-Reduced Red Blood Cells Blood Bank Comment Neutrophils (%) (Auto) 71.5 % Lymphocytes (%) (Auto) 11.3 % Monocytes (%) (Auto) 12.7 % Eosinophils (%) (Auto) 2.6 % Basophils (%) (Auto) 1.9 % Neutrophils # (Auto) 5.4 TH/MM3 Lymphocytes # (Auto) 0.9 TH/MM3 Monocytes # (Auto) 1.0 TH/MM3 Eosinophils # (Auto) 0.2 TH/MM3 Basophils # (Auto) 0.1 TH/MM3 CBC Comment DIFF FINAL Differential Comment Lactic Acid Level 1.2 mmol/L Phosphorus Level 4.2 MG/DL Magnesium Level 2.3 MG/DL Total Bilirubin 0.4 MG/DL Aspartate Amino Transf 18 U/L (AST/SGOT) Alanine Aminotransferase 38 U/L (ALT/SGPT) Alkaline Phosphatase 82 U/L Total Protein 6.4 GM/DL Albumin 2.3 GM/DL Test 08/27/16 08/28/16 20:12 04:49 Activated Partial 31.3 SEC Thromboplast Time White Blood Count 7.6 TH/MM3 Red Blood Count 2.95 MIL/MM3 Hemoglobin 9.2 GM/DL Hematocrit 27.8 % Mean Corpuscular Volume 94.3 FL Mean Corpuscular Hemoglobin 31.0 PG Mean Corpuscular Hemoglobin 32.9 % Concent Red Cell Distribution Width 16.1 % Platelet Count 311 TH/MM3 Mean Platelet Volume 8.3 FL Sodium Level 132 MEQ/L Potassium Level 4.6 MEQ/L Chloride Level 96 MEQ/L Carbon Dioxide Level 27.7 MEQ/L Anion Gap 8 MEQ/L Blood Urea Nitrogen 50 MG/DL Creatinine 2.07 MG/DL Estimat Glomerular Filtration 32 ML/MIN Rate Random Glucose 132 MG/DL Calcium Level 8.4 MG/DL Objective Remarks GENERAL: No acute distress. SKIN: Cool and dry. HEAD: Atraumatic. Normocephalic. EYES: Extraocular motions intact. No scleral icterus. No injection or drainage. CARDIOVASCULAR: Regular rate and rhythm without murmurs, gallops, or rubs. RESPIRATORY: Decreased breath sounds bilateral. No wheezing or crackles. GASTROINTESTINAL: Abdomen soft, non-tender, No guarding. MUSCULOSKELETAL: Extremities without clubbing, cyanosis, or edema. NEUROLOGICAL: Awake and alert. No focal deficits. Medications and IVs Current Medications Medications (Trade) Dose Ordered Sig/Jacek Route Start Time Stop Time Status Last Admin (NS Flush) 2 ml UNSCH PRN IV FLUSH 08/21/16 23:30 (NS Flush) 2 ml BID IV FLUSH 08/22/16 09:00 08/27/16 22:01 (Narcan Inj) 0.4 mg UNSCH PRN IV 08/21/16 23:30 (Ecotrin Ec) 81 mg DAILY PO 08/22/16 09:00 08/27/16 07:54 (Coreg) 6.25 mg BID PO 08/22/16 09:00 08/27/16 22:01 (Colace) 100 mg BID PO 08/22/16 09:00 08/27/16 07:54 (Lasix) 20 mg DAILY PO 08/22/16 09:00 08/27/16 07:54 ([place] 5-325 Mg) 1 tab Q4H PRN PO 08/21/16 23:30 08/27/16 12:19 (Imdur) 30 mg DAILY PO 08/22/16 09:00 08/26/16 09:25 (Synthroid) 50 mcg DAILY@06 PO 08/22/16 06:00 08/28/16 07:53 (Refresh Classic 1.4-0.6% Pf Opth Soln) 1 drop TID PRN EACH EYE 08/21/16 23:30 Patient Own Medication PT OWN MED: Brinzolamide Opth . BID RIGHT EYE 08/22/16 09:00 (Mag-Ox) 400 mg DAILY PO 08/22/16 09:00 08/27/16 07:54 (Protonix) 20 mg DAILY PO 08/22/16 09:00 08/27/16 07:54 (Pravachol) 40 mg HS PO 08/22/16 21:00 08/27/16 21:50 (Xalatan 0.005% Opth Soln) 1 drop HS RIGHT EYE 08/22/16 21:00 08/27/16 21:00 (Nitrostat Sl) 0.4 mg Q5M PRN SL 08/21/16 23:30 (D50w (Vial) Inj) 25 ml UNSCH PRN IV PUSH 08/21/16 23:30 (Glucagon Inj) 1 mg UNSCH PRN OTHER 08/21/16 23:30 (Alphagan 0.2% Opth Soln) 1 drop Q12HR RIGHT EYE 08/22/16 09:00 08/27/16 21:00 (Timoptic 0.5% Opth Soln) 1 drop Q12HR RIGHT EYE 08/22/16 09:00 08/27/16 21:00 (Heparin Inj) 5,000 units UNSCH PRN IV 08/22/16 16:30 (Heparin Inj) 2,500 units UNSCH PRN IV 08/22/16 16:30 (Zofran Inj) 4 mg Q8HR PRN IV PUSH 08/23/16 13:00 08/26/16 21:44 (Mucinex Er) 600 mg BID PO 08/23/16 21:00 08/27/16 21:50 (Carafate Liq) 1 gm ACHS PO 08/25/16 11:00 08/28/16 07:53 (Flomax) 0.4 mg DAILY PO 08/25/16 19:15 08/27/16 07:54 Mupirocin 1 applic 1 applic Taper BID EACH NARE 08/26/16 21:00 08/22/17 20:59 08/27/16 21:50 (Rocephin Inj/NS Inj) 100 ml @ 200 mls/hr Q24H IV 08/26/16 20:00 08/27/16 21:50 Miscellaneous Information Patient in critical care unit? Ass... [id number] .XX 08/27/16 05:15 08/27/16 05:04 (Chlorhexidine 2% Cloth) 3 pack DAILY@04 TOPICAL 08/28/16 04:00 09/01/16 04:01 08/28/16 07:53 (Chlorhexidine 2% Cloth) 3 pack UNSCH PRN TOPICAL 08/27/16 05:15 09/01/16 05:02 Apixaban 5 mg 5 mg BID PO 08/27/16 09:00 08/27/16 21:50 (NS 1000 ml Inj) 1,000 ml @ 42 mls/hr [id number] IV 08/27/16 16:00 08/27/16 16:00 A/P Assessment and Plan 1. CAD Status post CABG/Ischemic cardiomyopathy with ejection fraction of 25% on echocardiogram dated 08/03/[address] as per Doctor Salmon the Pacemaker was interrogated two months ago and no evidence for firing, he agreed with switch of Plavix for Apixaban as per program research specialist he will need to be off one of the Anti-Platelet medicines due to that he is on Heparin and recent GI bleed, status post Stress test and no ischemic disease, as per mental health specialist recommended to switch to Eliquis and discontinue Heparin. Cardiology agree with Discharge, signed off the case 2. CKD III worsening today her baseline is around 1.9 will add IV fluids low infusion Improving. 3. COPD on Bronchodilator, Mucolytic and incentive spirometry, not exacerbated at this time 4. History of STEMI with Cardiac Arrest on 08/04/16, status post CPR with ROSC. stable. 5. DM II continue sliding scale on Moderate dose and added Levemir 5 units BID. 6. Anemia Hemoglobin 9.2 he had recent GI bleed 08/13/16 7. Hyperlipidemia to continue Statins 8. CAD/CHF Systolic dysfunction EF 25% status post Pacemaker placement 9. Hypertension controlled. 10. GI bleed/Sigmoid diverticulosis/Internal and External Hemorrhoids/7mm Colonic Polyps Continue PPI and Carafate. 11. BPH to continue Flomax 0.4 mg daily. 12. UTI on Rocephin following cultures. 13. 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 contact precautions. Mupirocin Ointment DVT prophylaxis with Eliquis GI prophylaxis with PPIs and Carafate. PT evaluate and treat Code Status Full code Discussed Condition With Patient and Physical therapy. Discharge Planning Awaiting final recommendations by GI specialist for discharge Jeremiah Priutt MD Aug 28, 2016 08:11 Jeremiah Pruitt MD Aug 28, 2016 08:11
--- NOTE | 2016-08-28 08:35 | PD.CARD.PN ---
Subjective Subjective Remarks denies CV complaints (Miguel Dominguez) Objective Vital Signs / I&O Vital Signs Date Time Temp Pulse Resp B/P Pulse Ox O2 Delivery O2 Flow Rate FiO2 08/28/16 08:15 95 Nasal Cannula 3.00 08/28/16 06:00 92 08/28/16 04:00 92 08/28/16 04:00 98.8 92 18 110/65 97 08/28/16 03:48 96 Nasal Cannula 3.00 08/28/16 02:00 89 08/28/16 00:00 98.6 92 16 104/64 97 08/28/16 00:00 92 08/27/16 22:00 91 08/27/16 20:59 96 Nasal Cannula 3.00 08/27/16 20:00 98.5 90 14 81/50 96 08/27/16 20:00 90 08/27/16 18:00 88 08/27/16 16:00 98.8 86 15 104/60 96 08/27/16 16:00 86 08/27/16 14:00 87 08/27/16 12:00 98.5 85 15 116/75 98 08/27/16 12:00 85 08/27/16 10:00 82 I/O 08/27/16 08/27/16 08/27/16 08/28/16 08/28/16 08/28/16 07:00 15:00 23:00 07:00 15:00 23:00 Intake Total 440 ml 415 ml 1114 ml Output Total 225 ml 403 ml 751 ml Balance 215 ml 12 ml 363 ml Intake Oral 240 ml 360 ml 480 ml IV Total 200 ml 55 ml 634 ml Output Urine Total 225 ml 400 ml 750 ml Stool Total 3 ml 1 ml Physical Exam GENERAL: Well-nourished, well-developed patient in no apparent distress. NECK: No JVD. No carotid bruit. CARDIOVASCULAR: Regular rate and rhythm. S1/S2 no murmur, rub, or gallop. RESPIRATORY: No accessory muscle use. Clear to auscultation. Breath sounds equal bilaterally. GASTROINTESTINAL: Abdomen soft, non-tender, nondistended. MUSCULOSKELETAL: Extremities without clubbing, cyanosis, or edema. Laboratory Laboratory Tests Test 08/27/16 08/28/16 20:12 04:49 Activated Partial 31.3 SEC Thromboplast Time White Blood Count 7.6 TH/MM3 Red Blood Count 2.95 MIL/MM3 Hemoglobin 9.2 GM/DL Hematocrit 27.8 % Mean Corpuscular Volume 94.3 FL Mean Corpuscular Hemoglobin 31.0 PG Mean Corpuscular Hemoglobin 32.9 % Concent Red Cell Distribution Width 16.1 % Platelet Count 311 TH/MM3 Mean Platelet Volume 8.3 FL Sodium Level 132 MEQ/L Potassium Level 4.6 MEQ/L Chloride Level 96 MEQ/L Carbon Dioxide Level 27.7 MEQ/L Anion Gap 8 MEQ/L Blood Urea Nitrogen 50 MG/DL Creatinine 2.07 MG/DL Estimat Glomerular Filtration 32 ML/MIN Rate Random Glucose 132 MG/DL Calcium Level 8.4 MG/DL (Miguel Dominguez) Assessment and Plan Problem List: (1) Ischemic cardiomyopathy (2) Chest pain Assessment and Plan Doing well from a CV standpoint. Doing well on Eliquis. Will sign off call with further questions (Miguel Dominguez) Problem Qualifiers (1) Chest pain: Qualified Code: R07.9 - Chest pain, unspecified type Miguel Dominguez Aug 28, 2016 08:35 Anastacio Salmon MD Aug 28, 2016 08:58
[2016-08-28] MEDS: BRINZOLAMIDE OPTH RIGHT EYE SCH ×2 (09:00→21:00)
[2016-08-28] MEDS: SODIUM CHLORIDE 0.9% FLUSH 10 ML FLUSH IV FLUSH SCH ×2 (09:00→22:03)
[2016-08-28] MEDS: ASPIRIN EC 81 MG TABEC PO SCH (10:12)
[2016-08-28] MEDS: CARVEDILOL 6.25 MG TAB PO SCH ×2 (10:12→22:02)
[2016-08-28] MEDS: MUPIROCIN 2% OINT 1 APPLIC/GM SYR EACH NARE SCH ×2 (10:15→22:04)
[2016-08-28] MEDS: guaiFENesin E.R. 600 MG TAB PO SCH ×2 (10:15→22:04)
[2016-08-28] MEDS: FUROSEMIDE 20 MG TAB PO SCH (10:16)
[2016-08-28] MEDS: PANTOPRAZOLE SOD 20 MG DELAYED RELEASE TAB PO SCH (10:16)
[2016-08-28] MEDS: APIXABAN 5 MG TABLET PO SCH ×2 (10:16→22:02)
[2016-08-28] MEDS: TAMSULOSIN HCL 0.4 MG CAP PO SCH (10:16)
[2016-08-28] MEDS: ISOSORBIDE MONONITRATE 30 MG TAB PO SCH (10:16)
[2016-08-28] MEDS: MAGNESIUM OXIDE 400 MG TAB PO SCH (10:16)
[2016-08-28] MEDS: DOCUSATE SODIUM 100 MG CAP PO SCH ×2 (10:16→22:02)
[2016-08-28] MEDS: BRIMONIDINE TARTRATE 0.2% OPHT SOLN 5 ML BTL RIGHT EYE SCH ×2 (10:17→22:05)
[2016-08-28] MEDS: TIMOLOL MALEATE 0.5% OPHT SOLN 5 ML BTL RIGHT EYE SCH ×2 (10:17→22:05)
--- NOTE | 2016-08-28 10:47 | HHI.GIFU ---
Subjective Remarks Up in chair. Weak, but no active bleeding. No n/v. No abdominal pain. Tolerated breakfast. Objective Vitals I&O Vital Signs Date Time Temp Pulse Resp B/P Pulse Ox O2 Delivery O2 Flow Rate FiO2 08/28/16 08:15 95 Nasal Cannula 3.00 08/28/16 06:00 92 08/28/16 04:00 92 08/28/16 04:00 98.8 92 18 110/65 97 08/28/16 03:48 96 Nasal Cannula 3.00 08/28/16 02:00 89 08/28/16 00:00 98.6 92 16 104/64 97 08/28/16 00:00 92 08/27/16 22:00 91 08/27/16 20:59 96 Nasal Cannula 3.00 08/27/16 20:00 98.5 90 14 81/50 96 08/27/16 20:00 90 08/27/16 18:00 88 08/27/16 16:00 98.8 86 15 104/60 96 08/27/16 16:00 86 08/27/16 14:00 87 08/27/16 12:00 98.5 85 15 116/75 98 08/27/16 12:00 85 I/O 08/27/16 08/27/16 08/27/16 08/28/16 08/28/16 08/28/16 07:00 15:00 23:00 07:00 15:00 23:00 Intake Total 440 ml 415 ml 1114 ml Output Total 225 ml 403 ml 751 ml Balance 215 ml 12 ml 363 ml Intake Oral 240 ml 360 ml 480 ml IV Total 200 ml 55 ml 634 ml Output Urine Total 225 ml 400 ml 750 ml Stool Total 3 ml 1 ml Laboratory Laboratory Tests Test 08/27/16 08/28/16 20:12 04:49 Activated Partial 31.3 Thromboplast Time White Blood Count 7.6 Red Blood Count 2.95 Hemoglobin 9.2 Hematocrit 27.8 Mean Corpuscular Volume 94.3 Mean Corpuscular Hemoglobin 31.0 Mean Corpuscular Hemoglobin 32.9 Concent Red Cell Distribution Width 16.1 Platelet Count 311 Mean Platelet Volume 8.3 Sodium Level 132 Potassium Level 4.6 Chloride Level 96 Carbon Dioxide Level 27.7 Anion Gap 8 Blood Urea Nitrogen 50 Creatinine 2.07 Estimat Glomerular Filtration 32 Rate Random Glucose 132 Calcium Level 8.4 Date/Time Procedure Status Source Growth 08/25/16 18:27 Stool Occult Blood (LAINEY) - Final Complete Stool Stool HEMOCCULT POSITIVE Imaging Last Impressions Abdomen/Pelvis CT 08/26/16 0000 Signed Impressions: Service Date/Time: Friday, August 26, 2016 21:29 - CONCLUSION: 1. Moderate diverticulosis with minimal diverticulitis of the left side of the colon. No abscess, perforation or obstruction. 2. Small ascites in the left side of the abdomen, nonspecific. Nothing organized or drainable. 3. Benign-appearing right adrenal adenoma. 4. Effusions and atelectasis of both visualized lung bases. 5. Body wall edema/anasarca. Scott Austin MD Myocardial Perfusion Scan Nuc [facility] 08/24/16 0000 Signed Impressions: Service Date/Time: Wednesday, August 24, 2016 11:30 - CONCLUSION: 1. Large fixed perfusion defect centered at the cardiac apex and extending cephalad especially in the inferior wall and septal wall. No significant reversibility to suggest ischemia. 2. Dilated left ventricle with global hypokinesis and ejection fraction 27%%. RISK CATEGORY: High (>3%% Annual Mortality Rate) Jorge Pearce MD Lung Scan- Nuclear Medicine 08/22/16 0000 Signed Impressions: Service Date/Time: August 10:09 - CONCLUSION: Low probability of PE. Bala Rosado MD Lower Extremity Ultrasound 08/22/16 0000 Signed Impressions: Service Date/Time: August 07:51 - CONCLUSION: DVT with partial recanalization present in the left popliteal and peroneal veins Scott Leblanc MD Chest X-Ray 08/21/161920 Signed Impressions: Service Date/Time: Sunday, August 21, 2016 19:40 - CONCLUSION: No evidence of acute cardiopulmonary disease. Scott Austin MD Physical Exam HEENT: Normocephalic, atraumatic, no jaundice NECK: Neck is supple CHEST: CTA CARDIAC: RRR ABDOMEN: Soft, nondistended,mild lower abdomen tenderness; no hepatosplenomegaly; bowel sounds are present in all four quadrants. EXTREMITIES: No clubbing, cyanosis, or edema. 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 Assessment and Plan Plan ASSESSMENT: - Anemia with hemoccult positive. Abdomen/Pelvis CT (08/26/16)----> 1. Moderate diverticulosis with minimal diverticulitis of the left side of the colon. No abscess, perforation or obstruction. 2. Small ascites in the left side of the abdomen, nonspecific. Nothing organized or drainable. 3. Benign-appearing right adrenal adenoma. 4. Effusions and atelectasis of both visualized lung bases. 5. Body wall edema/anasarca. EGD (08/15/16)----> LA class B esophagitis, gastritis in gastric antrum, old blood in stomach but no clear bleeding areas seen. S/P EGD/Colonoscopy (08/26/16)----> Gastritis antrum, irregular z line, duodenal normal, retroflexed views revealed a hiatal hernia, poor prep, 7mm polyp descending, complete removal, diverticulosis in sigmoid and descending, retroflexed views revealed internal hemorrhoids, small internal hemorrhoids, external hemorrhoids. Pathology pending. S/P 5 units of PRBC. HH 9.2/27.8. No active bleeding. PPI- will increase to 20mg po daily, Carafate. On Eliquis, - Ischemic cardiomyopathy/DVT. Eliquis. Cardiology following. - CKD, COPD, DM, Hyperlipidemia, CHF, HTN, BPH, UTI per primary PLAN: - DELIO - Await Pathology - Increase Protonix to 40mg po daily - Monitor HH - Transfuse as necessary - Supportive care - Further recommendations to follow based on results of above - This pt has been seen by myself and Dr Welch and this note is written on her behalf Felisha Vogt Aug 28, 2016 10:47
[2016-08-28] MEDS: SODIUM CHLOR 0.9% 1000 ML INJ 1,000 ML IV SCH (16:04)
[2016-08-28] MEDS: PRAVASTATIN SOD 40 MG TAB PO SCH (22:02)
[2016-08-28] MEDS: cefTRIAXone INJ 1,000 MG in SODIUM CHLORIDE 0.9% INJ 100 ML IV SCH (22:03)
[2016-08-28] MEDS: LATANOPROST 0.005% OPHT SOLN 2.5 ML BTL RIGHT EYE SCH (22:05)
[2016-08-28] MEDS: INSULIN DETEMIR 100 UNITS/ML VIAL SQ SCH (22:17)
[2016-08-29] VITALS (8 sets, daily range): BP systolic 117–132; BP diastolic 55–83; PULSE 84–91; RESP 19–20; TEMP 96.5–97.8; O2SAT 92–95
[2016-08-29] MEDS: CHLORHEXIDINE GLUCONATE 2 % 1 PACK (2 CLOTHS)(taper/protocol) TOPICAL SCH (04:00)
[2016-08-29] MEDS: RESP: IPRATROPIUM 0.5 MG/2.5 ML NEB NEB SCH ×3 (04:43→15:15)
[2016-08-29] MEDS: LEVOTHYROXINE SODIUM 50 MCG TAB PO SCH (05:44)
[2016-08-29] MEDS: SUCRALFATE 1 GM/10 ML CUP PO SCH ×3 (05:44→16:59)
[2016-08-29] MEDS: INSULIN NovoLIN REGULAR SUPPLEMENTAL SCALE SQ SCH ×3 (05:46→16:59)
[2016-08-29] MEDS: BRINZOLAMIDE OPTH RIGHT EYE SCH (09:00)
[2016-08-29] MEDS: SODIUM CHLORIDE 0.9% FLUSH 10 ML FLUSH IV FLUSH SCH (09:00)
[2016-08-29] MEDS: MUPIROCIN 2% OINT 1 APPLIC/GM SYR EACH NARE SCH (09:28)
[2016-08-29] MEDS: TAMSULOSIN HCL 0.4 MG CAP PO SCH (09:28)
[2016-08-29] MEDS: ISOSORBIDE MONONITRATE 30 MG TAB PO SCH (09:29)
[2016-08-29] MEDS: FUROSEMIDE 20 MG TAB PO SCH (09:29)
[2016-08-29] MEDS: PANTOPRAZOLE SOD 20 MG DELAYED RELEASE TAB PO SCH (09:29)
[2016-08-29] MEDS: APIXABAN 5 MG TABLET PO SCH (09:29)
[2016-08-29] MEDS: ASPIRIN EC 81 MG TABEC PO SCH (09:29)
[2016-08-29] MEDS: guaiFENesin E.R. 600 MG TAB PO SCH (09:29)
[2016-08-29] MEDS: INSULIN DETEMIR 100 UNITS/ML VIAL SQ SCH (09:29)
[2016-08-29] MEDS: CARVEDILOL 6.25 MG TAB PO SCH (09:29)
[2016-08-29] MEDS: DOCUSATE SODIUM 100 MG CAP PO SCH (09:29)
[2016-08-29] MEDS: MAGNESIUM OXIDE 400 MG TAB PO SCH (09:29)
[2016-08-29] MEDS: BRIMONIDINE TARTRATE 0.2% OPHT SOLN 5 ML BTL RIGHT EYE SCH (09:30)
[2016-08-29] MEDS: TIMOLOL MALEATE 0.5% OPHT SOLN 5 ML BTL RIGHT EYE SCH (09:30)
[2016-08-29] MEDS: ACETAMINOPHEN/HYDROcodone 325 MG/5 MG TAB PO PRN (09:43)
--- NOTE | 2016-08-29 09:46 | HHI.PR ---
Subjective Remarks This is a pleasant 70 y/o male with Hypothyroidism, DM II, COPD, CAD, Ischemic Cardiomyopathy, with EF 25% on Echocardiogram 08/03/2016 CKD, CHF, STEMI and Cardiac Arrest 08/04/16, had CPR with return to ROSC, he came to ER with complaint of Right sided chest pain, described as tightness for the past 3 to 4 days, worse with deep inspiration, associated with SOB, discussed at this time with doctor Amandeep Mary she was called by marketing communications specialist, recommended to transfuse if Hemoglobin less than 10, stop Aspirin or Plavix, Stop Heparin and Start Apixaban 5 mg by Mouth twice a day, for three months and then decrease to 2.5 mg BID, as per computer specialist Doctor Jared recommended to perform IVC filter, that could be later today or next morning at this time will continue heparin drip, as per GI specialist Doctor Govind Manning he has Esophagitis, the patient has DVT, will need to be on anticoagulation. 08/24: Status post Lexiscan Stress test, marketing communications specialist recommended to discontinue one of the two antiplatelet therapy medicines discontinued Plavix, today will have Lexiscan and then will need EGD/ Colonoscopy as part of workup for Anemia, by now transfuse to keep Hemoglobin above 8 GR/DL. 08/25: Seen in his bedroom in the presence of nurse Miss Bernal, no nausea, vomit or diarrhea, no ischemic disease on Stress test he will have EGD and Colonoscopy by tomorrow. 08/26: Seen in PACU status post procedure performed, as per Anesthesiology he will need to go to Intensive Care Unit, due to that the patient developed Hypotension post procedure, on Pressor medicine Dopamine. he is alert and oriented x 3. 08/27: Initially transferred to Intensive Care Unit yesterday after Colonoscopy performed and developed Hypotension started on Dopamine and followed by acls specialist, as we know he has Diagnosis of LA class B esophagitis, CAD status post CABG, as per Automatic Operator off pressors and okay to come back for Medicine management. 08/28: Seen in his bedroom in the presence of Physical Therapy specialist, he needs to go to SNF to continue rehabilitation, no Nausea, Vomit or diarrhea. 08/29: Patient stable seen in his bedroom and discussed with nurse Miss Danika mcnally, no nausea, vomit or diarrhea, okay to discharge from GI specialist standpoint. Objective Vital Signs Date Time Temp Pulse Resp B/P Pulse Ox O2 Delivery O2 Flow Rate FiO2 08/29/16 09:12 95 Nasal Cannula 3.00 08/29/16 08:00 96.7 86 19 129/76 94 08/29/16 05:00 96.5 89 20 124/57 94 08/29/16 04:47 95 Nasal Cannula 3.00 08/29/16 00:00 96.8 91 20 117/55 92 08/28/16 20:00 96.6 90 16 126/58 97 08/28/16 18:02 98 Nasal Cannula 3.00 08/28/16 16:00 98.3 90 15 114/63 95 08/28/16 16:00 90 08/28/16 14:00 89 08/28/16 12:00 92 08/28/16 12:00 98.5 92 18 116/66 98 08/28/16 10:00 94 I/O 08/28/16 08/28/16 08/28/16 08/29/16 08/29/16 08/29/16 07:00 15:00 23:00 07:00 15:00 23:00 Intake Total 1114 ml 243 ml 362 ml 502 ml Output Total 751 ml 300 ml 250 ml 400 ml Balance 363 ml -57 ml 112 ml 102 ml Intake Oral 480 ml 120 ml IV Total 634 ml 243 ml 362 ml 382 ml Output Urine Total 750 ml 300 ml 250 ml 400 ml Stool Total 1 ml # Voids 0 # Bowel Movements 0 1 Result Diagram: 08/28/16 0449 08/28/16 0449 Imaging Last Impressions Abdomen/Pelvis CT 08/26/16 0000 Signed Impressions: Service Date/Time: Friday, August 26, 2016 21:29 - CONCLUSION: 1. Moderate diverticulosis with minimal diverticulitis of the left side of the colon. No abscess, perforation or obstruction. 2. Small ascites in the left side of the abdomen, nonspecific. Nothing organized or drainable. 3. Benign-appearing right adrenal adenoma. 4. Effusions and atelectasis of both visualized lung bases. 5. Body wall edema/anasarca. Scott Austin MD Myocardial Perfusion Scan Nuc Med 08/24/16 0000 Signed Impressions: Service Date/Time: Wednesday, August 24, 2016 11:30 - CONCLUSION: 1. Large fixed perfusion defect centered at the cardiac apex and extending cephalad especially in the inferior wall and septal wall. No significant reversibility to suggest ischemia. 2. Dilated left ventricle with global hypokinesis and ejection fraction 27%%. RISK CATEGORY: High (>3%% Annual Mortality Rate) Jorge Pearce MD Lung Scan-VQ Nuclear Medicine 08/22/16 0000 Signed Impressions: Service Date/Time: August 10:09 - CONCLUSION: Low probability of PE. Bala Rosado MD Lower Extremity Ultrasound 08/22/16 0000 Signed Impressions: Service Date/Time: August 07:51 - CONCLUSION: DVT with partial recanalization present in the left popliteal and peroneal veins Scott Leblanc MD Chest X-Ray 08/21/16 192 Signed Impressions: Service Date/Time: Sunday, August 21, 2016 19:40 - CONCLUSION: No evidence of acute cardiopulmonary disease. Scott Austin MD Procedures Colonoscopy Colonoscopy 08/26/16 7 mm polyp on descending Colon status post Cold biopsy Internal Hemorrhoids and External Hemorrhoids. Other Results Laboratory Tests Test 08/25/16 08/26/16 08/27/16 08/27/16 04:30 13:15 04:43 20:12 Nasal Screen MRSA (PCR) POSITIVE Staphylococcus aureus POSITIVE (PCR)(LAB) Blood Type O POSITIVE Antibody Screen NEGATIVE Crossmatch Leukocyte-Reduced Red Blood Cells Blood Bank Comment Neutrophils (%) (Auto) 71.5 % Lymphocytes (%) (Auto) 11.3 % Monocytes (%) (Auto) 12.7 % Eosinophils (%) (Auto) 2.6 % Basophils (%) (Auto) 1.9 % Neutrophils # (Auto) 5.4 TH/MM3 Lymphocytes # (Auto) 0.9 TH/MM3 Monocytes # (Auto) 1.0 TH/MM3 Eosinophils # (Auto) 0.2 TH/MM3 Basophils # (Auto) 0.1 TH/MM3 CBC Comment DIFF FINAL Differential Comment Lactic Acid Level 1.2 mmol/L Phosphorus Level 4.2 MG/DL Magnesium Level 2.3 MG/DL Total Bilirubin 0.4 MG/DL Aspartate Amino Transf 18 U/L (AST/SGOT) Alanine Aminotransferase 38 U/L (ALT/SGPT) Alkaline Phosphatase 82 U/L Total Protein 6.4 GM/DL Albumin 2.3 GM/DL Activated Partial 31.3 SEC Thromboplast Time Test 08/28/16 04:49 White Blood Count 7.6 TH/MM3 Red Blood Count 2.95 MIL/MM3 Hemoglobin 9.2 GM/DL Hematocrit 27.8 % Mean Corpuscular Volume 94.3 FL Mean Corpuscular Hemoglobin 31.0 PG Mean Corpuscular Hemoglobin 32.9 % Concent Red Cell Distribution Width 16.1 % Platelet Count 311 TH/MM3 Mean Platelet Volume 8.3 FL Sodium Level 132 MEQ/L Potassium Level 4.6 MEQ/L Chloride Level 96 MEQ/L Carbon Dioxide Level 27.7 MEQ/L Anion Gap 8 MEQ/L Blood Urea Nitrogen 50 MG/DL Creatinine 2.07 MG/DL Estimat Glomerular Filtration 32 ML/MIN Rate Random Glucose 132 MG/DL Calcium Level 8.4 MG/DL Objective Remarks GENERAL: No acute distress. SKIN: Cool and dry. HEAD: Atraumatic. Normocephalic. EYES: Extraocular motions intact. No scleral icterus. No injection or drainage. CARDIOVASCULAR: Regular rate and rhythm without murmurs, gallops, or rubs. RESPIRATORY: Decreased breath sounds bilateral. No wheezing or crackles. GASTROINTESTINAL: Abdomen soft, non-tender, No guarding. MUSCULOSKELETAL: Extremities without clubbing, cyanosis, or edema. NEUROLOGICAL: Awake and alert. No focal deficits. Medications and IVs Current Medications Medications (Trade) Dose Ordered Sig/Jacek Route Start Time Stop Time Status Last Admin (NS Flush) 2 ml UNSCH PRN IV FLUSH 08/21/16 23:30 (NS Flush) 2 ml BID IV FLUSH 08/22/16 09:00 08/28/16 22:03 (Narcan Inj) 0.4 mg UNSCH PRN IV 08/21/16 23:30 (Ecotrin Ec) 81 mg DAILY PO 08/22/16 09:00 08/28/16 10:12 (Coreg) 6.25 mg BID PO 08/22/16 09:00 08/28/16 22:02 (Colace) 100 mg BID PO 08/22/16 09:00 08/28/16 22:02 (Lasix) 20 mg DAILY PO 08/22/16 09:00 08/28/16 10:16 ([place] 5-325 Mg) 1 tab Q4H PRN PO 08/21/16 23:30 08/27/16 12:19 (Imdur) 30 mg DAILY PO 08/22/16 09:00 08/28/16 10:16 (Synthroid) 50 mcg DAILY@06 PO 08/22/16 06:00 08/29/16 05:44 (Refresh Classic 1.4-0.6% Pf Opth Soln) 1 drop TID PRN EACH EYE 08/21/16 23:30 Patient Own Medication PT OWN MED: Brinzolamide Opth .. BID RIGHT EYE 08/22/16 09:00 08/28/16 09:00 (Mag-Ox) 400 mg DAILY PO 08/22/16 09:00 08/28/16 10:16 (Protonix) 20 mg DAILY PO 08/22/16 09:00 08/28/16 10:16 (Pravachol) 40 mg HS PO 08/22/16 21:00 08/28/16 22:02 (Xalatan 0.005% Opth Soln) 1 drop HS RIGHT EYE 08/22/16 21:00 08/28/16 22:05 (Nitrostat Sl) 0.4 mg Q5M PRN SL 08/21/16 23:30 (D50w (Vial) Inj) 25 ml UNSCH PRN IV PUSH 08/21/16 23:30 (Glucagon Inj) 1 mg UNSCH PRN OTHER 08/21/16 23:30 (Alphagan 0.2% Opth Soln) 1 drop Q12HR RIGHT EYE 08/22/16 09:00 08/28/16 22:05 (Timoptic 0.5% Opth Soln) 1 drop Q12HR RIGHT EYE 08/22/16 09:00 08/28/16 22:05 (Zofran Inj) 4 mg Q8HR PRN IV PUSH 08/23/16 13:00 08/26/16 21:44 (Mucinex Er) 600 mg BID PO 08/23/16 21:00 08/28/16 22:04 (Carafate Liq) 1 gm ACHS PO 08/25/16 11:00 08/29/16 05:44 (Flomax) 0.4 mg DAILY PO 08/25/16 19:15 08/28/16 10:16 Mupirocin 1 applic 1 applic Taper BID EACH NARE 08/26/16 21:00 08/22/17 20:59 08/28/16 22:04 (Rocephin Inj/NS Inj) 100 ml @ 200 mls/hr Q24H IV 08/26/16 20:00 08/28/16 22:03 Miscellaneous Information Patient in critical care unit? Ass... [id number] .XX 08/27/16 05:15 08/27/16 05:04 (Chlorhexidine 2% Cloth) 3 pack DAILY@04 TOPICAL 08/28/16 04:00 09/01/16 04:01 08/28/16 07:53 (Chlorhexidine 2% Cloth) 3 pack UNSCH PRN TOPICAL 08/27/16 05:15 09/01/16 05:02 Apixaban 5 mg 5 mg BID PO 08/27/16 09:00 08/28/16 22:02 (NS 1000 ml Inj) 1,000 ml @ 42 mls/hr [id number] IV 08/27/16 16:00 08/28/16 16:04 (Levemir Inj) 5 units Q12HR SQ 08/28/16 21:00 08/28/16 22:17 A/P Assessment and Plan 1. CAD Status post CABG/Ischemic cardiomyopathy with ejection fraction of 25% on echocardiogram dated 08/03/[address] as per Doctor Salmon the Pacemaker was interrogated two months ago and no evidence for firing, he agreed with switch of Plavix for Apixaban as per marketing communications specialist he will need to be off one of the Anti-Platelet medicines due to that he is on Heparin and recent GI bleed, status post Stress test and no ischemic disease, as per computer specialist recommended to switch to Eliquis and discontinue Heparin. Cardiology agree with Discharge, signed off the case 2. CKD III creatinine trending down to baseline. continue drinking water 3. COPD on Bronchodilator, Mucolytic and incentive spirometry, not exacerbated at this time 4. History of STEMI with Cardiac Arrest on 08/04/16, status post CPR with ROSC. stable. 5. DM II continue sliding scale on Moderate dose and added Levemir 5 units BID. better control. 6. Anemia Hemoglobin 9.2 he had recent GI bleed 08/13/16, okay from GI specialist for discharge. 7. Hyperlipidemia to continue Statins 8. CAD/CHF Systolic dysfunction EF 25% status post Pacemaker placement 9. Hypertension controlled. 10. GI bleed/Sigmoid diverticulosis/Internal and External Hemorrhoids/7mm Colonic Polyps Continue PPI and Carafate. 11. BPH to continue Flomax 0.4 mg daily. 12. UTI Treated on Rocephin no further antibiotics. 13. 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 contact precautions. Mupirocin Ointment DVT prophylaxis with Eliquis GI prophylaxis with PPIs and Carafate. Code Status Full code Discussed Condition With Patient, Nurse Miss Garnica and Fiberglass Product Tester. Left a message to Miss Nadege Damico patient's Sister, on her phone [phone] Discharge Planning Discharge to Rehab Jeremiah Pruitt MD Aug 29, 2016 09:46
--- NOTE | 2016-08-29 10:16 | HHI.GIFU ---
Subjective Remarks Pt resting in bed. Says he didn't get much to eat [breakfast tray examined- eggs, banana, cereal have been consumed]. Per RN he did eat. Denies pain, n/v , bleeding. Per RN no sign of blood in stool. Objective Vitals I&O Vital Signs Date Time Temp Pulse Resp B/P Pulse Ox O2 Delivery O2 Flow Rate FiO2 08/29/16 09:12 95 Nasal Cannula 3.00 08/29/16 08:00 96.7 86 19 129/76 94 08/29/16 05:00 96.5 89 20 124/57 94 08/29/16 04:47 95 Nasal Cannula 3.00 08/29/16 00:00 96.8 91 20 117/55 92 08/28/16 20:00 96.6 90 16 126/58 97 08/28/16 18:02 98 Nasal Cannula 3.00 08/28/16 16:00 98.3 90 15 114/63 95 08/28/16 16:00 90 08/28/16 14:00 89 08/28/16 12:00 92 08/28/16 12:00 98.5 92 18 116/66 98 I/O 08/28/16 08/28/16 08/28/16 08/29/16 08/29/16 08/29/16 07:00 15:00 23:00 07:00 15:00 23:00 Intake Total 1114 ml 243 ml 362 ml 502 ml Output Total 751 ml 300 ml 250 ml 400 ml Balance 363 ml -57 ml 112 ml 102 ml Intake Oral 480 ml 120 ml IV Total 634 ml 243 ml 362 ml 382 ml Output Urine Total 750 ml 300 ml 250 ml 400 ml Stool Total 1 ml # Voids 0 # Bowel Movements 0 1 Laboratory Date/Time Procedure Status Source Growth 08/25/16 18:27 Stool Occult Blood ([facility]INE[facility]) - Final Complete Stool Stool HEMOCCULT POSITIVE Imaging Last Impressions Abdomen/Pelvis CT 08/26/16 0000 Signed Impressions: Service Date/Time: Friday, August 26, 2016 21:29 - CONCLUSION: 1. Moderate diverticulosis with minimal diverticulitis of the left side of the colon. No abscess, perforation or obstruction. 2. Small ascites in the left side of the abdomen, nonspecific. Nothing organized or drainable. 3. Benign-appearing right adrenal adenoma. 4. Effusions and atelectasis of both visualized lung bases. 5. Body wall edema/anasarca. Scott Austni MD Myocardial Perfusion Scan Nuc Med 08/24/16 0000 Signed Impressions: Service Date/Time: Wednesday, August 24, 2016 11:30 - CONCLUSION: 1. Large fixed perfusion defect centered at the cardiac apex and extending cephalad especially in the inferior wall and septal wall. No significant reversibility to suggest ischemia. 2. Dilated left ventricle with global hypokinesis and ejection fraction 27%%. RISK CATEGORY: High (>3%% Annual Mortality Rate) Jorge Pearce MD Lung Scan-VQ Nuclear Medicine 08/22/16 0000 Signed Impressions: Service Date/Time: August 10:09 - CONCLUSION: Low probability of PE. Bala Rosado MD Lower Extremity Ultrasound 08/22/16 0000 Signed Impressions: Service Date/Time: August 07:51 - CONCLUSION: DVT with partial recanalization present in the left popliteal and peroneal veins Scott Leblanc MD Chest X-Ray 08/21/16 192 Signed Impressions: Service Date/Time: Sunday, August 21, 2016 19:40 - CONCLUSION: No evidence of acute cardiopulmonary disease. Scott Austin MD Physical Exam HEENT: Normocephalic, atraumatic, no jaundice NECK: Neck is supple CHEST: CTA CARDIAC: RRR ABDOMEN: Soft, obese,nontender; no hepatosplenomegaly; bowel sounds are present in all four quadrants. EXTREMITIES: No clubbing, cyanosis, or edema. SKIN: Generalized pallor WELDER/FITTER: No focal deficits; mildly confused. Assessment and Plan Plan ASSESSMENT: - Anemia with hemoccult positive. Abdomen/Pelvis CT (08/26/16)----> 1. Moderate diverticulosis with minimal diverticulitis of the left side of the colon. No abscess, perforation or obstruction. 2. Small ascites in the left side of the abdomen, nonspecific. Nothing organized or drainable. 3. Benign-appearing right adrenal adenoma. 4. Effusions and atelectasis of both visualized lung bases. 5. Body wall edema/anasarca. EGD (08/15/16)----> LA class B esophagitis, gastritis in gastric antrum, old blood in stomach but no clear bleeding areas seen. S/P EGD/Colonoscopy (08/26/16)----> Gastritis antrum, irregular z line, duodenal normal, retroflexed views revealed a hiatal hernia, poor prep, 7mm polyp descending, complete removal, diverticulosis in sigmoid and descending, retroflexed views revealed internal hemorrhoids, small internal hemorrhoids, external hemorrhoids. path benign, adenomatous polyp descending colon. S/P 5 units of PRBC. HH 9.2/27.8. No active bleeding. PPI, carafate. On Eliquis, - Ischemic cardiomyopathy/DVT. Eliquis. Cardiology following. - CKD, COPD, DM, Hyperlipidemia, CHF, HTN, BPH, UTI per primary PLAN: - DELIO - Monitor HH - Transfuse as necessary - Supportive care - okay to d/c from GI standpoint - This pt has been seen by myself and Dr Welch and this note is written on her behalf Keena Madsen Aug 29, 2016 10:16
[2016-08-29 11:25] LABS: BICARBONATE 29.7 MEQ/L (21.0-32.0); POTASSIUM 4.7 MEQ/L (3.5-5.1)
[2016-08-29] MEDS: SODIUM CHLOR 0.9% 1000 ML INJ 1,000 ML IV SCH (11:47)
[2016-08-29] MEDS ORDERED: APIX5TAB PO (15:35)
[2016-08-29] MEDS ORDERED: IPRA0.02 NEB (15:35)
[2016-08-29] MEDS ORDERED: LEVEMIR SQ (15:35)
[2016-08-29] MEDS ORDERED: TAMS5CAP PO (15:35)
[2016-08-29] MEDS ORDERED: SUCR1S PO (15:35)
[2016-08-29] MEDS ORDERED: BACTOIN EACH NARE (15:35)
[2016-08-29] MEDS ORDERED: HYDR-3516 PO (15:35)
--- NOTE | 2016-08-29 16:00 | HHI.DS ---
Discharge Summary Admission Date Aug 22, 2016 at 10:14 Discharge Date: Aug 29, 2016 Admitting Diagnosis Chest pain (1) Atypical chest pain ICD Code: R07.89 Diagnosis: Principal (2) SOB (shortness of breath) ICD Code: R06.02 Diagnosis: Principal (3) DM (diabetes mellitus) ICD Code: E11.9 Diagnosis: Secondary (4) GI bleed ICD Code: K92.2 Diagnosis: Principal (5) Deep vein thrombosis (DVT) of left lower extremity ICD Code: I82.402 Diagnosis: Principal Procedures Colonoscopy Colonoscopy 08/26/16 7 mm polyp on descending Colon status post Cold biopsy Internal Hemorrhoids and External Hemorrhoids. Brief History - From Admission This is a 70-year-old male with a history of hypothyroidism, DM, COPD, coronary artery disease, ischemic cardiomyopathy with ejection fraction of 25% on echocardiogram dated 08/03/2016, chronic kidney disease, congestive heart failure , STEMI, and cardiac arrest on 08/04/2016. On 08/04/16 patient did have CRP with ROSC. Reports that since then, he has had increased pain to the right side of his rib. Patient presents to the ER with complaint of right sided chest pain described as a tightness for the past 3-4 days. Pain worse with taking a deep breath and certain movements. Chest pain associated with SOB. Patient reports that nothing seems to relieve the chest pain. There is no radiation of the chest pain. Patient denies fevers, chills, vomiting or diarrhea, black tarry stool or bright red blood per rectum. CBC/BMP: 08/28/16 0449 08/29/16 1101 Significant Findings Laboratory Tests Test 08/27/16 08/27/16 08/28/16 08/29/16 04:43 20:12 04:49 11:01 Red Blood Count 2.91 MIL/MM3 2.95 MIL/MM3 (4.50-5.90) (4.50-5.90) Hemoglobin 8.8 GM/DL 9.2 GM/DL (13.0-17.0) (13.0-17.0) Hematocrit 27.3 % 27.8 % (39.0-51.0) (39.0-51.0) Neutrophils (%) (Auto) 71.5 % (16.0-70.0) Monocytes (%) (Auto) 12.7 % (0.0-8.0) Lymphocytes # (Auto) 0.9 TH/MM3 (1.0-4.8) Monocytes # (Auto) 1.0 TH/MM3 (0-0.9) Activated Partial 43.0 SEC 31.3 SEC Thromboplast Time (24.3-30.1) (24.3-30.1) Sodium Level 132 MEQ/L 132 MEQ/L 135 MEQ/L (136-145) (136-145) (136-145) Chloride Level 96 MEQ/L 96 MEQ/L (98-107) (98-107) Blood Urea Nitrogen 51 MG/DL (7-18) 50 MG/DL (7-18) 45 MG/DL (7-18) Creatinine 2.37 MG/DL 2.07 MG/DL 1.71 MG/DL (0.60-1.30) (0.60-1.30) (0.60-1.30) Estimat Glomerular Filtration 27 ML/MIN (>89) 32 ML/MIN (>89) 40 ML/MIN (>89) Rate Random Glucose 138 MG/DL 132 MG/DL 147 MG/DL (74-106) (74-106) (74-106) Calcium Level 8.2 MG/DL 8.4 MG/DL (8.5-10.1) (8.5-10.1) Albumin 2.3 GM/DL (3.4-5.0) Imaging Last Impressions Abdomen/Pelvis CT 08/26/16 0000 Signed Impressions: Service Date/Time: Friday, August 26, 2016 21:29 - CONCLUSION: 1. Moderate diverticulosis with minimal diverticulitis of the left side of the colon. No abscess, perforation or obstruction. 2. Small ascites in the left side of the abdomen, nonspecific. Nothing organized or drainable. 3. Benign-appearing right adrenal adenoma. 4. Effusions and atelectasis of both visualized lung bases. 5. Body wall edema/anasarca. Scott Austin MD Myocardial Perfusion Scan Nuc Med 08/24/16 0000 Signed Impressions: Service Date/Time: Wednesday, August 24, 2016 11:30 - CONCLUSION: 1. Large fixed perfusion defect centered at the cardiac apex and extending cephalad especially in the inferior wall and septal wall. No significant reversibility to suggest ischemia. 2. Dilated left ventricle with global hypokinesis and ejection fraction 27%%. RISK CATEGORY: High (>3%% Annual Mortality Rate) Jorge Pearce MD Lung Scan-VQ Nuclear Medicine 08/22/16 0000 Signed Impressions: Service Date/Time: August 10:09 - CONCLUSION: Low probability of PE. Bala Rosado MD Lower Extremity Ultrasound 08/22/16 0000 Signed Impressions: Service Date/Time: August 07:51 - CONCLUSION: DVT with partial recanalization present in the left popliteal and peroneal veins Scott Leblanc MD Chest X-Ray 08/21/161920 Signed Impressions: Service Date/Time: Sunday, August 21, 2016 19:40 - CONCLUSION: No evidence of acute cardiopulmonary disease. Scott Austin MD PE at Discharge GENERAL: No acute distress. SKIN: Cool and dry. HEAD: Atraumatic. Normocephalic. EYES: Extraocular motions intact. No scleral icterus. No injection or drainage. CARDIOVASCULAR: Regular rate and rhythm without murmurs, gallops, or rubs. RESPIRATORY: Decreased breath sounds bilateral. No wheezing or crackles. GASTROINTESTINAL: Abdomen soft, non-tender, No guarding. MUSCULOSKELETAL: Extremities without clubbing, cyanosis, or edema. NEUROLOGICAL: Awake and alert. No focal deficits. Hospital Course This is a pleasant 70 y/o male with Hypothyroidism, DM II, COPD, CAD, Ischemic Cardiomyopathy, with EF 25% on Echocardiogram 08/03/2016 CKD, CHF, STEMI and Cardiac Arrest 08/04/16, had CPR with return to ROSC, he came to ER with complaint of Right sided chest pain, described as tightness for the past 3 to 4 days, worse with deep inspiration, associated with SOB, discussed at this time with doctor Amandeep Mary she was called by site identification specialist, recommended to transfuse if Hemoglobin less than 10, stop Aspirin or Plavix, Stop Heparin and Start Apixaban 5 mg by Mouth twice a day, for three months and then decrease to 2.5 mg BID, as per language specialist Doctor Jared recommended to perform IVC filter, that could be later today or next morning at this time will continue heparin drip, as per GI specialist Doctor Govind Manning he has Esophagitis, the patient has DVT, will need to be on anticoagulation. 08/24: Status post Lexiscan Stress test, site identification specialist recommended to discontinue one of the two antiplatelet therapy medicines discontinued Plavix, today will have Lexiscan and then will need EGD/ Colonoscopy as part of workup for Anemia, by now transfuse to keep Hemoglobin above 8 GR/DL. 08/25: Seen in his bedroom in the presence of nurse Miss Bernal, no nausea, vomit or diarrhea, no ischemic disease on Stress test he will have EGD and Colonoscopy by tomorrow. 08/26: Seen in PACU status post procedure performed, as per Anesthesiology he will need to go to Intensive Care Unit, due to that the patient developed Hypotension post procedure, on Pressor medicine Dopamine. he is alert and oriented x 3. 08/27: Initially transferred to Intensive Care Unit yesterday after Colonoscopy performed and developed Hypotension started on Dopamine and followed by chronic specialist, as we know he has Diagnosis of LA class B esophagitis, CAD status post CABG, as per [employer]room[employer] Thresher off pressors and okay to come back for Medicine management. 08/28: Seen in his bedroom in the presence of Physical Therapy specialist, he needs to go to SNF to continue rehabilitation, no Nausea, Vomit or diarrhea. 08/29: Patient stable seen in his bedroom and discussed with nurse Miss Danika mcnally, no nausea, vomit or diarrhea, okay to discharge from GI specialist standpoint. Assessment and Plan 1. CAD Status post CABG/Ischemic cardiomyopathy with ejection fraction of 25% on echocardiogram dated 08/03/[address] as per Doctor Salmon the Pacemaker was interrogated two months ago and no evidence for firing, he agreed with switch of Plavix for Apixaban as per site identification specialist he will need to be off one of the Anti-Platelet medicines due to that he is on Heparin and recent GI bleed, status post Stress test and no ischemic disease, as per language specialist recommended to switch to Eliquis and discontinue Heparin. Cardiology agree with Discharge, signed off the case 2. CKD III creatinine trending down to baseline. continue drinking water 3. COPD on Bronchodilator, Mucolytic and incentive spirometry, not exacerbated at this time 4. History of STEMI with Cardiac Arrest on 08/04/16, status post CPR with ROSC. stable. 5. DM II continue sliding scale on Moderate dose and added Levemir 5 units BID. better control. 6. Anemia Hemoglobin 9.2 he had recent GI bleed 08/13/16, okay from GI specialist for discharge. 7. Hyperlipidemia to continue Statins 8. CAD/CHF Systolic dysfunction EF 25% status post Pacemaker placement 9. Hypertension controlled. 10. GI bleed/Sigmoid diverticulosis/Internal and External Hemorrhoids/7mm Colonic Polyps Continue PPI and Carafate. 11. BPH to continue Flomax 0.4 mg daily. 12. UTI Treated on Rocephin no further antibiotics. 13. 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 contact precautions. Mupirocin Ointment DVT prophylaxis with Eliquis GI prophylaxis with PPIs and Carafate. Code Status Full code Discussed Condition With Patient, Nurse Miss Garnica and Industrial Sales Manager. Left a message to Miss Nadege Damico patient's Sister, on her phone [phone] Discharge Planning Discharge to Rehab Pt Condition on Discharge: Good Discharge Disposition: Discharge to SNF Discharge Time: > 30 minutes Discharge Instructions DIET: Follow Instructions for: Heart Healthy Diet, Diabetic Diet Activities you can perform: Regular-No Restrictions Other Activity Instructions: Follow Physical Therapy recommendations on Rehab Jeremiah Pruitt MD Aug 29, 2016 15:59
== END 2016-08-29 18:00 | DRG 281 ==
LOC: NEPE 18:44 → NEDA 23:16 → NEPGCP 08-22 01:42 → OBSVTOIN 08-22 10:14 → HCIS 08-22 14:20 → HIMN 08-26 12:52 → N07B 08-28 17:48
PROVIDERS: ADMIT Internal Medicine; ATTEND Internal Medicine
PROC: 30233N1 Transfusion of Nonautologous Red Blood Cells into Peripheral Vein, Percutaneous Approach (ICD-10-PCS; 2016-08-22)
PROC: 0DB68ZX Excision of Stomach, Via Natural or Artificial Opening Endoscopic, Diagnostic (ICD-10-PCS; 2016-08-26)
PROC: 0DB98ZX Excision of Duodenum, Via Natural or Artificial Opening Endoscopic, Diagnostic (ICD-10-PCS; 2016-08-26)
PROC: 0DBM8ZX Excision of Descending Colon, Via Natural or Artificial Opening Endoscopic, Diagnostic (ICD-10-PCS; principal; 2016-08-26 11:40)
DX: R07.9 Chest pain, unspecified (principal); I21.3 ST elevation (STEMI) myocardial infarction of unspecified site; I82.402 Acute embolism and thrombosis of unspecified deep veins of left lower extremity; I50.22 Chronic systolic (congestive) heart failure; E11.22 Type 2 diabetes mellitus with diabetic chronic kidney disease; K57.32 Diverticulitis of large intestine without perforation or abscess without bleeding; K92.2 Gastrointestinal hemorrhage, unspecified; N39.0 Urinary tract infection, site not specified; J98.11 Atelectasis; J44.9 Chronic obstructive pulmonary disease, unspecified; Z86.74 Personal history of sudden cardiac arrest; I25.5 Ischemic cardiomyopathy; E03.9 Hypothyroidism, unspecified; N18.3 Chronic kidney disease, stage 3 (moderate); I12.9 Hypertensive chronic kidney disease with stage 1 through stage 4 chronic kidney disease, or unspecified chronic kidney disease; K44.9 Diaphragmatic hernia without obstruction or gangrene; E78.00 Pure hypercholesterolemia, unspecified; E07.9 Disorder of thyroid, unspecified; H53.9 Unspecified visual disturbance; I25.10 Atherosclerotic heart disease of native coronary artery without angina pectoris; D64.9 Anemia, unspecified; E78.5 Hyperlipidemia, unspecified; K20.9 Esophagitis, unspecified; K29.70 Gastritis, unspecified, without bleeding; I73.9 Peripheral vascular disease, unspecified; K64.4 Residual hemorrhoidal skin tags; K64.8 Other hemorrhoids; N40.0 Benign prostatic hyperplasia without lower urinary tract symptoms; M19.90 Unspecified osteoarthritis, unspecified site; M81.0 Age-related osteoporosis without current pathological fracture; I95.81 Postprocedural hypotension; D35.01 Benign neoplasm of right adrenal gland; D12.4 Benign neoplasm of descending colon; Z88.2 Allergy status to sulfonamides; Z91.041 Radiographic dye allergy status; Z95.810 Presence of automatic (implantable) cardiac defibrillator; Z95.1 Presence of aortocoronary bypass graft; Z79.82 Long term (current) use of aspirin; Z87.891 Personal history of nicotine dependence; Z86.718 Personal history of other venous thrombosis and embolism; Z86.010 Personal history of colon polyps; Z79.891 Long term (current) use of opiate analgesic; Z79.4 Long term (current) use of insulin
CPT/HCPCS: 36430; 71010; 74176; 78452; 78582; 80048; 80053; 81001; 82272; 82550; 82948; 83605; 83735; 83880; 84100; 84443; 84484; 85007; 85025; 85027; 85379; 85610; 85730; 86850; 86900; 86901; 86920; 87086; 87640; 87641; 88305; 88312; 93005; 93017; 93970; 94150; 94640; 94664; 96360; A9502; A9540; A9567; G0378; G8987-GP; G8988-GP; J0171; J0461; J0696; J1265; J1644; J1815; J2370; J2405; J2785; J7030; J7040; J7644; P9016; Q9963

== ENCOUNTER 2016-09-03 18:55 | Inpatient (IN) | payer MEDICARE, MEDICAID ==
[~2016-09-03] VITALS: Ht 177.8 cm; Wt 92.9 kg
[2016-09-03] VITALS (9 sets, daily range): BP systolic 93–116; BP diastolic 45–71; PULSE 66–98; RESP 16–22; TEMP 97.5–97.9; O2SAT 97–100
[~2016-09-03 18:55] MED LIST changes: +APIX5TAB PO; +ASCO500T PO; +BACTOIN EACH NARE; -HUMALOG SQ; -INSU1INJ5 SQ; +IPRA0.02 NEB; +LEVEMIR SQ; +MAGN500T2 PO; -MULT1TAB PO; +MULTTAB67 PO; -NYST1000 SWISH-SWAL; +OMEP20TA PO; -PANT40TA3 PO; -PLAV75TA29 PO; +SUCR1S PO; +TAMS5CAP PO
[2016-09-03] MEDS ORDERED: SODIUM CHLORIDE 0.9% FLUSH 10 ML FLUSH IVF PRN (19:45)
--- NOTE | 2016-09-03 20:04 | RADRPT ---
EXAM DATE/TIME: 09/03/2016 19:55 [facility] COMPARISON: CHEST SINGLE AP, August 21, 2016, 19:40. INDICATIONS : Syncope. MEDICAL HISTORY : Congestive heart failure. Renal failure, chronic. Diabetes mellitus type 1.Hiatal hernia. SURGICAL HISTORY : Pacemaker. CABG. ENCOUNTER: Initial ACUITY: 1 day PAIN SCORE: Non-responsive. LOCATION: Bilateral chest FINDINGS: A single view of the chest demonstrates bilateral airspace disease greater in perihilar distribution and greater in the right lung. Cardiomegaly and previous CABG. Left-sided defibrillator. Osseous str uctures are intact. CONCLUSION: Cardiomegaly and pulmonary edema. Osbaldo Abebe MD on September 03, 2016 at 20:00 Board Certified Radiologist. This report was verified electronically.
[2016-09-03] MEDS ORDERED: FUROSEMIDE 20 MG/2 ML VIAL IV PUSH ONE (20:15)
--- NOTE | 2016-09-03 20:34 | RADRPT ---
EXAM DATE/TIME: 09/03/2016 20:20 [facility] COMPARISON: CT BRAIN W/O CONTRAST, August 14, 2016, 22:45. INDICATIONS : Altered mental status for two days. RADIATION DOSE: 39.60 CTDIvol (mGy) MEDICAL HISTORY : Cardiovascular disease. Congestive heart failure. Renal failure, acute.Diabetes SURGICAL HISTORY : None. ENCOUNTER: Initial ACUITY: 2 days PAIN SCALE: 2/10 LOCATION: Bilateral cranial TECHNIQUE: Multiple contiguous axial images were obtained of the head. Using automated exposure control and adj ustment of the mA and/or kV according to patient size, radiation dose was kept as low as reasonably a chievable to obtain optimal diagnostic quality images. FINDINGS: CEREBRUM: The ventricles are normal for age. No evidence of midline shift, mass lesion, hemorrhage or acute in farction. No extra-axial fluid collections are seen. POSTERIOR FOSSA: The cerebellum and brainstem are intact. The 4th ventricle is midline. The cerebellopontine angle i s unremarkable. EXTRACRANIAL: The visualized portion of the orbits is intact. SKULL: The calvaria is intact. No evidence of skull fracture. CONCLUSION: No acute intracranial disease. Osbaldo Abebe MD on September 03, 2016 at 20:31 Board Certified Radiologist. This report was verified electronically.
[2016-09-03 20:37] LABS: AUTOMATED NEUTROPHIL # 4.8 TH/MM3 (1.8-7.7); BASOPHIL # 0.1 TH/MM3 (0-0.2); BASOPHIL % 1.3 % (0.0-2.0); EOSINOPHIL # 0.4 TH/MM3 (0-0.4); HEMATOCRIT 33.4 % (39.0-51.0); HEMO FLAGS DIFF FINAL; LYMPH % 11.6 % (9.0-44.0); LYMPHOCYTE # 0.8 TH/MM3 (1.0-4.8); MEAN CELL VOLUME 97.3 FL (80.0-100.0); MEAN CORPUSCULAR HEMOGLOBIN 31.4 PG (27.0-34.0); MEAN CORPUSCULAR HGB CONC 32.2 % (32.0-36.0); NEUT % 68.1 % (16.0-70.0); PLATELET COUNT 261 TH/MM3 (150-450); RED BLOOD COUNT 3.43 MIL/MM3 (4.50-5.90); RED CELL DISTRIBUTION WIDTH 18.2 % (11.6-17.2); WHITE BLOOD COUNT 7.1 TH/MM3 (4.0-11.0)
[2016-09-03 20:43] LABS: INTERNATIONAL NORMALIZED RATIO 1.1 RATIO; PROTHROMBIN TIME - PATIENT 12.1 SEC (9.8-11.6)
[2016-09-03 21:09] LABS: ANION GAP 4 MEQ/L (5-15); AST (GOT) 16 U/L (15-37); BICARBONATE 38.9 MEQ/L (21.0-32.0); BLOOD UREA NITROGEN 23 MG/DL (7-18); CHLORIDE 93 MEQ/L (98-107); GLOMERULAR FILTRATION RATE 44 ML/MIN (>89); POTASSIUM 4.4 MEQ/L (3.5-5.1); SODIUM (NA) 136 MEQ/L (136-145)
[2016-09-03 21:19] LABS: ALKALINE PHOSPHATASE 74 U/L (45-117); ALT (GPT) 18 U/L (12-78); TOTAL BILIRUBIN ADULT 0.3 MG/DL (0.2-1.0)
[2016-09-03 21:20] LABS: CREATINE KINASE 37 U/L (39-308)
[2016-09-03] MEDS ORDERED: HUMALOG SQ (21:25)
[2016-09-03] MEDS ORDERED: AZOP1SUS RIGHT EYE (21:25)
[2016-09-03] MEDS ORDERED: FURO40TA PO (21:25)
[2016-09-03] MEDS ORDERED: BACTOIN EACH NARE (21:25)
[2016-09-03] MEDS ORDERED: NALOXONE HCL 0.4 MG/ML AMP IV PRN (22:00)
[2016-09-03] MEDS ORDERED: SODIUM CHLORIDE 0.9% FLUSH 10 ML FLUSH IV FLUSH PRN (22:00)
--- NOTE | 2016-09-03 22:43 | PD ---
HPI Chief Complaint: Medical Clearance Time Seen by Provider: 19:29 Travel History International Travel<30 days: No Contact w/Intl Traveler<30days: No Traveled to known affect area: No History of Present Illness HPI 70-year-old male came to the emergency room with history of shortness of breath noticed in the half-way. He was also having some vision problem from his left eye which is his good eye. Patient has history of CVA and difficult to understand what he is saying. I am unclear if the way he has presented is his baseline since there is no family members present currently. I was told by the nurse that his oxygen saturation was in the high 80s and blood pressure in the 80s systolic as per EMS en route. Patient does not appear to be in any significant distress. He is not complaining of any pain anywhere. However history is limited and patient is an unreliable. PFSH Past Medical History Narrative Medical List of his past medical, surgical, social and family history is reviewed from the nursing note. Hx Anticoagulant Therapy: Yes Asthma: No Autoimmune Disease: No Blood Disorders: No Heart Rhythm Problems: Yes Cancer: No Cardiovascular Problems: Yes High Cholesterol: Yes Chest Pain: Yes Congestive Heart Failure: Yes COPD: Yes Diabetes: Yes Patient Takes Glucophage: No Diminished Hearing: No Endocrine: Yes Gastrointestinal Disorders: Yes (GI BLEED) Genitourinary: Yes Hiatal Hernia: Yes Immune Disorder: No Implanted Vascular Access Dvce: Yes Musculoskeletal: Yes Psychiatric: No Reproductive: No Respiratory: Yes Myocardial Infarction: Yes Sleep Apnea: No Thyroid Disease: Yes Past Surgical History AICD: Yes Body Medical Devices: PACEMAKER/DEFIBRILATOR Cardiac Surgery: Yes (PACEMAKER DEFIB) Coronary Artery Bypass Graft: Yes Eye Surgery: Yes Pacemaker: Yes (AICD) Other Surgery: Yes (left toe amputation) Social History Alcohol Use: No Tobacco Use: No (QUIT 40 yrs ago) Substance Use: No Allergies-Medications (Allergen,Severity, Reaction): Coded Allergies: Iodinated Contrast Media (Verified Allergy, Unknown, 09/03/16) Sulfa (Verified Allergy, Unknown, 09/03/16) *MDRO Multi-Drug Resistant Organism (Verified Adverse Reaction, Unknown, ) MRSA PCR Screen POSITIVE - 08/25/2016 & 09/04/2016 Comments List of his allergies reviewed from the nursing note. Reported Meds & Prescriptions Reported Meds & Active Scripts Active Flomax (Tamsulosin HCl) 0.4 Mg Cap 0.4 Mg PO DAILY Ipratropium Neb (Ipratropium [place]) 0.5 Mg/2.5 Ml Amp 0.5 Mg NEB Q6HR NEB Hydrocodone-Acetaminophen 5-325 mg Tab 1 Tab PO Q4H PRN Eliquis (Apixaban) 5 Mg Tab 5 Mg PO BID Levemir Inj (Insulin Detemir) 1,000 unit/ 10 ML Vial 5 Units SQ Q12HR Colace (Docusate Sodium) 100 Mg Cap 100 Mg PO BID Ferrous Sulfate 325 Mg Tab 325 Mg PO DAILY Reported Humalog Inj (Insulin Human Lispro) 1,000 Unit/10 Ml Vial 1-9 Units SQ ACHS Max dose at bedtime:( )units; sugars< 70,(0)units; sugars 150-199,(1)unit; sugars 200-249,(3)units; sugars 250-299,(5)units; sugars 300-349,(7)units; sugars more than 349,(9)units. Bactroban Nasal Oint (Mupirocin Nasal Oint) 2% Oint 1 Applic EACH NARE BID For 5 days. Azopt Opth Drops (Brinzolamide) 1% Susp 1 Drop RIGHT EYE BID Furosemide 40 Mg Tab 40 Mg PO BID Ascorbic Acid 500 Mg Tab 500 Mg PO BID Multiple Vitamin 1 Tab 1 Tab PO DAILY Omeprazole 20 Mg Tab 20 Mg PO DAILY Magnesium Oxide 500 Mg Tab 500 Mg PO DAILY Travatan Z Opth Drops (Travoprost) 0.004 % Soln 1 Drop RIGHT EYE HS Carvedilol 6.25 Mg Tab 6.25 Mg PO BID Zocor (Simvastatin) 20 Mg Tab 20 Mg PO HS Nitroglycerin SL (Nitroglycerin) 0.4 Mg Subl 0.4 Mg SL DIRECTED PRN ONE TABLET UNDER THE TONGUE NEEDED FOR CHEST PAIN, MAY REPEAT EVERY FIVE MINUTES FOR A TOTAL OF 3 DOSES OR CALL 911 IF NO RELIEF Levothyroxine (Levothyroxine Sodium) 50 Mcg Tab 50 Mcg PO DAILY Isosorbide Mononitrate ER (Isosorbide Mononitrate) 30 Mg Adriana 30 Mg PO DAILY Combigan Opth Drops (Brimonidine-Timolol Opth Drops) 0.2-0.5% Soln 1 Drop RIGHT EYE Q12HR Aspirin EC Low Dose (Aspirin) 81 Mg Tabec 81 Mg PO DAILY Refresh Opth Drops (Polyvinyl Alcohol-Povidone Opth Drops) 1.4-0.6% Drops 1 Drop EACH EYE TID PRN Narrative Medication List of his home medications reviewed from the nursing note Review of Systems Except as stated in HPI: all other systems reviewed are Neg Physical Exam Narrative GENERAL: Awake, alert, dysarthric speech, no obvious distress SKIN: Focused skin assessment warm/dry. HEAD: Atraumatic. Normocephalic. EYES: Pupils equal and round. No scleral icterus. No injection or drainage. 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 Mucous membranes pink and moist. NECK: Trachea midline. No JVD. CARDIOVASCULAR: Regular rate and rhythm. No murmur appreciated. RESPIRATORY: No accessory muscle use. Clear to auscultation. Breath sounds equal bilaterally. GASTROINTESTINAL: Abdomen soft, non-tender, nondistended. Hepatic and splenic margins not palpable. MUSCULOSKELETAL: No obvious deformities. No clubbing. No cyanosis. Bilateral 1 + generalized edema NEUROLOGICAL: Awake and alert. No obvious cranial nerve deficits. Motor grossly within normal limits. Normal speech. PSYCHIATRIC: Appropriate mood and affect; insight and judgment normal. Data Data Last Documented VS Orders Electrocardiogram (09/03/16 ) Complete Blood Count With Diff (09/03/16 19:43) Comprehensive Metabolic Panel (09/03/16 19:43) Creatine Kinase (Cpk) (09/03/16 19:43) Prothrombin Time / Inr (Pt) (09/03/16 19:43) Troponin I (09/03/16 19:43) Thyroid Stimulating Hormone (09/03/16 19:43) Lactic Acid Sepsis Protocol (09/03/16 19:43) Blood Culture (09/03/16 19:43) Chest, Single Ap (09/03/16 19:43) Ct Brain W/O Iv Contrast(Rout) (09/03/16 19:43) Blood Glucose (09/03/16 19:43) Ecg Monitoring (09/03/16 19:43) Iv Access Insert/Monitor (09/03/16 19:43) Oximetry (09/03/16 19:43) Sodium Chloride 0.9% Flush (Ns Flush) (09/03/16 19:45) Furosemide Inj (Lasix Inj) (09/03/16 20:15) Admit Order (Ed Use Only) (09/03/16 21:47) Labs MDM Medical Decision Making Medical Screen Exam Complete: Yes Emergency Medical Condition: Yes Medical Record Reviewed: Yes Interpretation(s) Twelve-lead EKG was reviewed by me. Paced rhythm. Heart rate of 96 bpm. Differential Diagnosis TIA, congestive heart failure, electrolyte abnormality Narrative Course 9:30 PM blood test results of back and within acceptable limits. Chest x-ray suggestive of pulmonary edema. Head CT is within normal limits. I decided to admit this patient. Patient was given 20 mg of IV Lasix given his soft blood pressure. Family members including 2 sisters and one brother showed up and I spoke with them. I have updated them regarding his test results as well. 10:41 PM I was just told by the hospitalist that she is uncomfortable taking care of this patient. She wants the precinct police sergeant to take care of this patient since she fears patient will go into respiratory failure. Currently saturating 97% on 4 L of oxygen via nasal cannula. I put a call out for the precinct police sergeant and I will order an ABG. 10:50 PM I spoke with Dr. Bettencourt from ICU who has accepted the patient. 11:07 PM blood gas is suggestive off respiratory acidosis and CO2 retention. I have ordered BiPAP for this patient. Critical Care Narrative Aggregate critical care time was 45 minutes. Time to perform other separately billable procedures was not included in the critical care time. My time did not include minutes spent treating any other patients simultaneously or on activities that did not directly contribute to the patient's treatment. The services I provided to this patient were to treat and/or prevent clinically significant deterioration that could result in: Respiratory distress, BiPAP, respiratory acidosis I provided critical care services requiring my management, as noted below: Chart data review, documentation time, medication orders and management, vital sign assessments/reviewing monitor data, ordering and reviewing lab tests, ordering and interpreting/reviewing x-rays and diagnostic studies, care of the patient and discussion of the patient with the admitting physicians. Procedures EKG Prior to Arrival: Yes Physician Communication Physician Communication Diagnosis Primary Impression: Pulmonary edema Qualified Code: J81.0 - Acute pulmonary edema Additional Impression: Shortness of breath Admitting Information Admitting Physician Requests: Admit Rae Izaguirre MD Sep 03, 2016 22:43 Prothromb Time International 1.1 RATIO Ratio Sodium Level 136 MEQ/L Potassium Level 4.4 MEQ/L Chloride Level 93 MEQ/L Carbon Dioxide Level 38.9 MEQ/L Anion Gap 4 MEQ/L Blood Urea Nitrogen 23 MG/DL Creatinine 1.56 MG/DL Estimat Glomerular Filtration 44 ML/MIN Rate Random Glucose 197 MG/DL Lactic Acid Level 0.9 mmol/L Calcium Level 8.4 MG/DL Total Bilirubin 0.3 MG/DL Aspartate Amino Transf 16 U/L (AST/SGOT) Alanine Aminotransferase 18 U/L (ALT/SGPT) Alkaline Phosphatase 74 U/L Total Creatine Kinase 37 U/L Troponin I 0.04 NG/ML Total Protein 7.2 GM/DL Albumin 2.6 GM/DL Thyroid Stimulating Hormone 6.120 uIU/ML [address] [place] [address] Medical Decision Making Medical Screen Exam Complete: Yes Emergency Medical Condition: Yes Medical Record Reviewed: Yes Interpretation(s) Twelve-lead EKG was reviewed by me. Paced rhythm. Heart rate of 96 bpm. Differential Diagnosis TIA, congestive heart failure, electrolyte abnormality Narrative Course 9:30 PM blood test results of back and within acceptable limits. Chest x-ray suggestive of pulmonary edema. Head CT is within normal limits. I decided to admit this patient. Patient was given 20 mg of IV Lasix given his soft blood pressure. Family members including 2 sisters and one brother showed up and I spoke with them. I have updated them regarding his test results as well. 10:41 PM I was just told by the hospitalist that she is uncomfortable taking care of this patient. She wants the precinct police sergeant to take care of this patient since she fears patient will go into respiratory failure. Currently saturating 97% on 4 L of oxygen via nasal cannula. I put a call out for the precinct police sergeant and I will order an ABG. 10:50 PM I spoke with Dr. Bettencourt from ICU who has accepted the patient. 11:07 PM blood gas is suggestive off respiratory acidosis and CO2 retention. I have ordered BiPAP for this patient. Procedures EKG Prior to Arrival: Yes Physician Communication Physician Communication Diagnosis Primary Impression: Pulmonary edema Qualified Code: J81.0 - Acute pulmonary edema Additional Impression: Shortness of breath Admitting Information Admitting Physician Requests: Admit Rae Izaguirre MD Sep 03, 2016 22:43 Rae Izaguirre MD Sep 03, 2016 22:43
--- NOTE | 2016-09-03 22:56 | HHI.HP ---
HPI Service Critical Care Medicine Primary Care Physician No Primary Care Physician Admission Diagnosis shortness of breath, pulmonary edema Diagnosis: Chief Complaint: SOB Travel History International Travel<30 Days: No Contact w/Intl Traveler <30 Da: No Traveled to Known Affected Are: No History of Present Illness 70 y/o man transferred from [facility] with vision changes. He has a longstanding dilated cardiomyopathy with pulmonary artery hypertension. The substrate is basically end-stage systolic heart failure and we will sort through mechanisms associated with vision change. There are numerous medication and perfusion issues that may have changed his vision in the left eye. 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 He is presently too uncooperative to evaluate vision further and too unstable to perform MRI for possible optic nerve impingement. The two female family members at the bedside feel that we are perpetuating his suffering but his , they say, insists that everything be done to keep him alive. Listed below are recommendations from discharge 5 days ago: Assessment and Plan 1. CAD Status post CABG/Ischemic cardiomyopathy with ejection fraction of 25% on echocardiogram dated 08/03/[address] as per Doctor Salmon the Pacemaker was interrogated two months ago and no evidence for firing, he agreed with switch of Plavix for Apixaban as per monitoring specialist he will need to be off one of the Anti-Platelet medicines due to that he is on Heparin and recent GI bleed, status post Stress test and no ischemic disease, as per risk control specialist recommended to switch to Eliquis and discontinue Heparin. Cardiology agree with Discharge, signed off the case 2. CKD III creatinine trending down to baseline. continue drinking water 3. COPD on Bronchodilator, Mucolytic and incentive spirometry, not exacerbated at this time 4. History of STEMI with Cardiac Arrest on 08/04/16, status post CPR with ROSC. stable. 5. DM II continue sliding scale on Moderate dose and added Levemir 5 units BID. better control. 6. Anemia Hemoglobin 9.2 he had recent GI bleed 08/13/16, okay from GI specialist for discharge. 7. Hyperlipidemia to continue Statins 8. CAD/CHF Systolic dysfunction EF 25% status post Pacemaker placement 9. Hypertension controlled. 10. GI bleed/Sigmoid diverticulosis/Internal and External Hemorrhoids/7mm Colonic Polyps Continue PPI and Carafate. 11. BPH to continue Flomax 0.4 mg daily. 12. UTI Treated on Rocephin no further antibiotics. 13. 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 contact precautions. Mupirocin Ointment Review of Systems ROS Unobtainable, confused. Past Family Social History Allergies: Coded Allergies: Iodinated Contrast Media (Verified Allergy, Unknown, 09/03/16) Sulfa (Verified Allergy, Unknown, 09/03/16) *MDRO Multi-Drug Resistant Organism (Verified Adverse Reaction, Unknown, ) MRSA PCR Screen POSITIVE - 08/25/2016 Past Medical History Past Medical History Narrative Medical List of his past medical, surgical, social and family history is reviewed from the nursing note. Hx Anticoagulant Therapy: Yes Asthma: No Autoimmune Disease: No Blood Disorders: No Heart Rhythm Problems: Yes Cancer: No Cardiovascular Problems: Yes High Cholesterol: Yes Chest Pain: Yes Congestive Heart Failure: Yes COPD: Yes Diabetes: Yes Patient Takes Glucophage: No Diminished Hearing: No Endocrine: Yes Gastrointestinal Disorders: Yes (GI BLEED) Genitourinary: Yes Hiatal Hernia: Yes Immune Disorder: No Implanted Vascular Access Dvce: Yes Musculoskeletal: Yes Psychiatric: No Reproductive: No Respiratory: Yes Myocardial Infarction: Yes Sleep Apnea: No Thyroid Disease: Yes Past Surgical History AICD: Yes Body Medical Devices: PACEMAKER/DEFIBRILATOR Cardiac Surgery: Yes (PACEMAKER DEFIB) Coronary Artery Bypass Graft: Yes Eye Surgery: Yes Pacemaker: Yes (AICD) Other Surgery: Yes (left toe amputation) Social History Alcohol Use: No Tobacco Use: No (QUIT 40 yrs ago) Substance Use: No Allergies-Medications Allergies-Medications (Allergen,Severity, Reaction): Coded Allergies: Iodinated Contrast Media (Verified Allergy, Unknown, 09/03/16) Sulfa (Verified Allergy, Unknown, 09/03/16) *MDRO Multi-Drug Resistant Organism (Verified Adverse Reaction, Unknown, ) MRSA PCR Screen POSITIVE - 08/25/2016 Comments List of his allergies reviewed from the nursing note. Reported Meds & Prescriptions Reported Meds & Active Scripts Active Flomax (Tamsulosin HCl) 0.4 Mg Cap 0.4 Mg PO DAILY Ipratropium Neb (Ipratropium [place]) 0.5 Mg/2.5 Ml Amp 0.5 Mg NEB Q6HR NEB Hydrocodone-Acetaminophen 5-325 mg Tab 1 Tab PO Q4H PRN Eliquis (Apixaban) 5 Mg Tab 5 Mg PO BID Levemir Inj (Insulin Detemir) 1,000 unit/ 10 ML Vial 5 Units SQ Q12HR Colace (Docusate Sodium) 100 Mg Cap 100 Mg PO BID Ferrous Sulfate 325 Mg Tab 325 Mg PO DAILY Reported Humalog Inj (Insulin Human Lispro) 1,000 Unit/10 Ml Vial 1-9 Units SQ ACHS Max dose at bedtime:( )units; sugars< 70,(0)units; sugars 150-199,(1)unit; sugars 200-249,(3)units; sugars 250-299,(5)units; sugars 300-349,(7)units; sugars more than 349,(9)units. Bactroban Nasal Oint (Mupirocin Nasal Oint) 2% Oint 1 Applic EACH NARE BID For 5 days. Azopt Opth Drops (Brinzolamide) 1% Susp 1 Drop RIGHT EYE BID Furosemide 40 Mg Tab 40 Mg PO BID Ascorbic Acid 500 Mg Tab 500 Mg PO BID Multiple Vitamin 1 Tab 1 Tab PO DAILY Omeprazole 20 Mg Tab 20 Mg PO DAILY Magnesium Oxide 500 Mg Tab 500 Mg PO DAILY Travatan Z Opth Drops (Travoprost) 0.004 % Soln 1 Drop RIGHT EYE HS Carvedilol 6.25 Mg Tab 6.25 Mg PO BID Zocor (Simvastatin) 20 Mg Tab 20 Mg PO HS Nitroglycerin SL (Nitroglycerin) 0.4 Mg Subl 0.4 Mg SL DIRECTED PRN ONE TABLET UNDER THE TONGUE NEEDED FOR CHEST PAIN, MAY REPEAT EVERY FIVE MINUTES FOR A TOTAL OF 3 DOSES OR CALL 911 IF NO RELIEF Levothyroxine (Levothyroxine Sodium) 50 Mcg Tab 50 Mcg PO DAILY Isosorbide Mononitrate ER (Isosorbide Mononitrate) 30 Mg Adriana 30 Mg PO DAILY Combigan Opth Drops (Brimonidine-Timolol Opth Drops) 0.2-0.5% Soln 1 Drop RIGHT EYE Q12HR Aspirin EC Low Dose (Aspirin) 81 Mg Tabec 81 Mg PO DAILY Refresh Opth Drops (Polyvinyl Alcohol-Povidone Opth Drops) 1.4-0.6% Drops 1 Drop EACH EYE TID PRN Physical Exam Vital Signs Vital Signs Date Time Temp Pulse Resp B/P Pulse Ox O2 Delivery O2 Flow Rate FiO2 09/03/16 20:52 97.5 09/03/16 19:45 97.9 66 22 93/45 97 Physical Exam P 93 irreg and V-paced backup at 70, BP 107/65, R 28, Sats 82% Head: Normal. Blind right eye. Neck: Chronic rigidity, airway patent. Lungs: Diffuse crackles, light bilateral wheezes. Heart: Irreg Irreg, + JVD. Abdomen: Soft, no guarding. Quiet. Extremities: Cool, poorly perfused. No edema. Neuro: Moves arms spontaneously. Speech not clear. Breathing labored. Laboratory Laboratory Tests Test 09/03/16 20:05 White Blood Count 7.1 Red Blood Count 3.43 Hemoglobin 10.8 Hematocrit 33.4 Mean Corpuscular Volume 97.3 Mean Corpuscular Hemoglobin 31.4 Mean Corpuscular Hemoglobin 32.2 Concent Red Cell Distribution Width 18.2 Platelet Count 261 Mean Platelet Volume 8.6 Neutrophils (%) (Auto) 68.1 Lymphocytes (%) (Auto) 11.6 Monocytes (%) (Auto) 13.0 Eosinophils (%) (Auto) 6.0 Basophils (%) (Auto) 1.3 Neutrophils # (Auto) 4.8 Lymphocytes # (Auto) 0.8 Monocytes # (Auto) 0.9 Eosinophils # (Auto) 0.4 Basophils # (Auto) 0.1 CBC Comment DIFF FINAL Differential Comment Prothrombin Time 12.1 Prothromb Time International 1.1 Ratio Sodium Level 136 Potassium Level 4.4 Chloride Level 93 Carbon Dioxide Level 38.9 Anion Gap 4 Blood Urea Nitrogen 23 Creatinine 1.56 Estimat Glomerular Filtration 44 Rate Random Glucose 197 Lactic Acid Level 0.9 Calcium Level 8.4 Total Bilirubin 0.3 Aspartate Amino Transf 16 (AST/SGOT) Alanine Aminotransferase 18 (ALT/SGPT) Alkaline Phosphatase 74 Total Creatine Kinase 37 Troponin I 0.04 Total Protein 7.2 Albumin 2.6 Thyroid Stimulating Hormone 6.120 3rd Gen Date/Time Procedure Status Source Growth 09/03/16 20:05 Aerobic Blood Culture Received Blood Peripheral Pending 09/03/16 20:05 Anaerobic Blood Culture Received Blood Peripheral Pending Result Diagram: 09/03/16200409/03/162004 Assessment and Plan Assessment and Plan Assessment: 1. Hypoxemic Respiratory Failure. 2. [facility] I could not get cooperation to examine. 3. Dilated ischemic cardiomyopathy and end-stage systolic heart failure. 4. Diabetes type 2. 5. CO2 retention. Plan: 1. Start BiPAP 04/16. 2. Repeat ABG. 3. Blood cultures. 4. UA. 5. Diuretics. 6. Continue oral anticoagulant. 7. Palliative Care consult Overall impression: End-stage systolic heart failure. Critically ill and unstable due to pulmonary edema. Unable to evaluate further his vision changes left eye due to distress. Will try dobutamine and diuretics immediately. Hopefully Palliative Care can help us sort out family issues regarding code status. Critical care 45 mins Saud Bettencourt MD Sep 03, 2016 22:56
[2016-09-03 23:53] LABS: BLOOD GAS CARBOXYHEMOGLOBIN 2.1 % (0-4); BLOOD GAS HCO3 38 mmol/L (22-26); BLOOD GAS METHEMOGLOBIN 0.5 % (0-2); BLOOD GAS O2 HGB SATURATION 97 % (90-100); BLOOD GAS OXYGEN CONTENT 14.8 Vol % (12.0-20.0); BLOOD GAS PCO2 107 mmHg (38-42); BLOOD GAS PO2 138 mmHG (61-120); BLOOD GAS TOTAL HGB 10.7 G/DL (12.0-16.0); TEMP CORR TO 98.6
[2016-09-03 23:54] LABS: CRITICAL VALUE YES; DRAW SITE RT RADIAL; LITER FLOW 3 L/M; NUMBER OF ARTERIAL PUNCTURES 1; OXYGEN DEVICE NASAL CANNULA; STAT YES; ULNAR PULSE PRESENT
[2016-09-04] VITALS (20 sets, daily range): BP systolic 93–139; BP diastolic 53–62; PULSE 77–94; RESP 16–23; TEMP 97.4–98.8; O2SAT 93–100
[2016-09-04] MEDS ORDERED: POLYVINYL ALC-POVIDONE 1.4/0.6% PF OPTH SOLN 0.4 ML 30 CT EACH EYE PRN (01:15)
[2016-09-04] MEDS ORDERED: MISCELLANEOUS NURSING INFORMATION XX SCH (01:15)
[2016-09-04] MEDS ORDERED: CHLORHEXIDINE GLUCONATE 2 % 1 PACK (2 CLOTHS) TOP PRN (01:15)
[2016-09-04] MEDS: DOBUTamine PREMIX DRIP 250 ML IV SCH ×2 (01:28→17:58)
[2016-09-04] MEDS: CHLORHEXIDINE GLUCONATE 2 % 1 PACK (2 CLOTHS) TOP SCH (01:30)
[2016-09-04] MEDS: RESP: ALBUTEROL 2.5 MG/IPRATROPIUM 0.5 MG NEB (SCH) INH ×4 (03:00→19:50)
[2016-09-04] MEDS: RESP: IPRATROPIUM 0.5 MG/2.5 ML NEB NEB SCH ×3 (03:01→16:00)
[2016-09-04 05:06] LABS: BLOOD GAS BASE EXCESS 10.8 mmol/L (-2-2); BLOOD GAS CARBOXYHEMOGLOBIN 2.8 % (0-4); BLOOD GAS HCO3 38 mmol/L (22-26); BLOOD GAS O2 HGB SATURATION 91 % (90-100); BLOOD GAS PCO2 87 mmHg (38-42); BLOOD GAS PO2 72 mmHg (61-120); BLOOD GAS TOTAL HGB 10.1 G/DL (12.0-16.0); TEMP CORR TO 98.6
[2016-09-04 05:07] LABS: CRITICAL VALUE YES; DRAW SITE RT RADIAL; FIO2 35 %; NUMBER OF ARTERIAL PUNCTURES 1; OXYGEN DEVICE BIPAP; STAT NO; ULNAR PULSE PRESENT; VENT SETTINGS IPAP 18/EPAP 8
[2016-09-04 05:18] LABS: AUTOMATED NEUTROPHIL # 4.1 TH/MM3 (1.8-7.7); BASOPHIL # 0.1 TH/MM3 (0-0.2); BASOPHIL % 1.3 % (0.0-2.0); EOSINOPHIL # 0.3 TH/MM3 (0-0.4); EOSINOPHIL % 5.1 % (0.0-4.0); HEMO FLAGS DIFF FINAL; LYMPH % 15.7 % (9.0-44.0); MEAN CELL VOLUME 98.2 FL (80.0-100.0); MEAN CORPUSCULAR HEMOGLOBIN 30.2 PG (27.0-34.0); MEAN CORPUSCULAR HGB CONC 30.7 % (32.0-36.0); MONO % 12.1 % (0.0-8.0); NEUT % 65.8 % (16.0-70.0); PLATELET COUNT 227 TH/MM3 (150-450); RED BLOOD COUNT 3.36 MIL/MM3 (4.50-5.90); WHITE BLOOD COUNT 6.3 TH/MM3 (4.0-11.0)
[2016-09-04 05:19] LABS: ALT (GPT) 16 U/L (12-78); ANION GAP 1 MEQ/L (5-15); AST (GOT) 12 U/L (15-37); BICARBONATE 43.1 MEQ/L (21.0-32.0); BLOOD UREA NITROGEN 25 MG/DL (7-18); CHLORIDE 92 MEQ/L (98-107); GLOMERULAR FILTRATION RATE 41 ML/MIN (>89); POTASSIUM 4.4 MEQ/L (3.5-5.1); SODIUM (NA) 136 MEQ/L (136-145)
[2016-09-04 05:21] LABS: ALKALINE PHOSPHATASE 72 U/L (45-117); FREE T4 1.24 NG/DL (0.76-1.46); TOTAL BILIRUBIN ADULT 0.4 MG/DL (0.2-1.0)
[2016-09-04] MEDS: ISOSORBIDE MONONITRATE 30 MG TAB PO SCH (05:26)
[2016-09-04] MEDS: LEVOTHYROXINE SODIUM 50 MCG TAB PO SCH (05:26)
[2016-09-04] MEDS ORDERED: FUROSEMIDE 100 MG/10 ML VIAL IV PUSH ONE (05:45)
[2016-09-04] MEDS ORDERED: NON-FORMULARY DRUG (Insulin Lispro (Human) Inj (Humalog Inj) 0 UNITS) SQ SCH (07:00)
[2016-09-04] MEDS: INSULIN DETEMIR 100 UNITS/ML VIAL SQ SCH ×3 (09:00→21:00)
[2016-09-04] MEDS ORDERED: NON-FORMULARY DRUG (Brimonidine-Timolol Opth Drops (Combigan Opth Drops) 1 DROP) RIGHT EYE SCH (09:00)
[2016-09-04] MEDS ORDERED: BRINZOLAMIDE 1% RIGHT EYE SCH (09:00)
[2016-09-04] MEDS: SODIUM CHLORIDE 0.9% FLUSH 10 ML FLUSH IV FLUSH SCH ×2 (09:00→21:18)
[2016-09-04] MEDS: LACTULOSE SYRUP 20 GM/30 ML CUP PO SCH ×2 (09:00→09:57)
[2016-09-04] MEDS: MUPIROCIN 2% OINT 1 APPLIC/GM SYR EACH NARE SCH ×2 (09:56→21:18)
[2016-09-04] MEDS: ASPIRIN EC 81 MG TABEC PO SCH (09:57)
[2016-09-04] MEDS: FUROSEMIDE 20 MG/2 ML VIAL IV PUSH SCH ×2 (09:57→17:59)
[2016-09-04] MEDS: CARVEDILOL 6.25 MG TAB PO SCH ×2 (09:57→21:18)
[2016-09-04] MEDS: FUROSEMIDE 40 MG TAB PO SCH ×2 (09:57→21:17)
[2016-09-04] MEDS: PANTOPRAZOLE SOD 20 MG DELAYED RELEASE TAB PO SCH (09:57)
[2016-09-04] MEDS: TIMOLOL MALEATE 0.5% OPHT SOLN 5 ML BTL RIGHT EYE SCH ×2 (09:57→21:20)
[2016-09-04] MEDS: APIXABAN 5 MG TABLET PO SCH ×2 (09:57→21:18)
[2016-09-04] MEDS: BRIMONIDINE TARTRATE 0.2% OPHT SOLN 5 ML BTL RIGHT EYE SCH ×2 (09:58→21:20)
--- NOTE | 2016-09-04 10:31 | PD.CONS ---
Consult Service Palliative Care Consult Requested By MD Sg Primary Care Physician No Primary Care Physician Reason for Consultation a. To assist with evaluation and management of symptoms including:dyspnea b. To assist medical decision maker(s) with: better understanding of current medical conditions; weighing benefits/burdens of medical treatment options; making medical treatment decisions. HPI History of Present Illness This is a 70-year-old male who recently moved from [place] to live with his mother and be near his 2 sisters who are in the [facility] area. He essentially has been in and out of the hospital since 08/02/16. He initially presented to the emergency department on 08/02/16 with complaints of shortness of breath with reports of a recent URI. Reports a history of CAD with severe dilated cardiomyopathy with congestive heart failure and an LVEF of 25% and has an implanted defibrillator pacemaker. He was noted to have elevated troponin levels and EKG reflected non-STEMI. 2 days later he was a CODE BLUE for PE arrest and acute hypoxic respiratory failure. He subsequently improved and was discharged to a intermediate facility on 08/08/16. He returned to the hospital on 08/13/16 with syncope and reports of "chest pain" . He was given nitroglycerin by staff at the facility and had a syncopal episode. Patient had complained of chest wall pain after having had CPR on his prior admission. Initial diagnostics identified him to have a low hemoglobin. Upper GI will come was completed identifying gastritis as well as esophagitis. He was started on PPI, was transfused and subsequently discharged 4 days later on 08/17/2016 back to skilled facility. He returned again to the emergency department on 08/21/16 with continued complaints of right-sided rib pain. He was found on exam to have a DVT Left calf, popliteal on 08/22/16, while on Plavix and aspirin. He had no evidence of PE. Additionally , he is found to have a hemoglobin of 7.5. Hematology was consulted for recommendations regarding coagulopathy. Gastroenterology was also consulted as he had heme positive stools. Colonoscopy identified Moderate diverticulosis with minimal diverticulitis of the left side of the colon. Post procedurally, he developed hypotension requiring dopamine and eventually Juan Manuel-Synephrine. He again recovered and was subsequently discharged on 08/29/16 to the skilled facility. On this admission, he presented with shortness of breath as well as confusion and "thick" speech. Concern is for TIA. He was found to have low BPs, chest x -ray suggestive of pulmonary edema and blood gases exited significant hypercapnia with a PCO2 of 107 and was started immediately on BiPAP. Chest x- ray showed pulmonary edema. Head CT was unremarkable Hemoglobin was stable in the 10s, Urinalysis was completed and cultures pending. At the time of my visit, he is awake and conversant with a BiPAP mask. He is able to provide a reasonable history . However, it is difficult to converse with him because of the mask and his thick [place] accident. He denies having any pain or discomfort at this time. He is able to follow commands for me. He states his breathing is "okay". Review of Systems ROS Limitations: Clinical Condition Constitutional: COMPLAINS OF: Fatigue Eyes: COMPLAINS OF: Blurred vision, Vision loss Respiratory: COMPLAINS OF: Shortness of breath Cardiovascular: COMPLAINS OF: Chest pain, Dyspnea on Exertion Musculoskeletal: COMPLAINS OF: Joint pain (R chest wall - rib pain post CPR), Muscle aches Past Family Social History Coded Allergies: Iodinated Contrast Media (Verified Allergy, Unknown, 09/03/16) Sulfa (Verified Allergy, Unknown, 09/03/16) *MDRO Multi-Drug Resistant Organism (Verified Adverse Reaction, Unknown, ) MRSA PCR Screen POSITIVE - 08/25/2016 & 09/04/2016 Past Medical History congestive heart failure, cardiomyopathy status post AICD, coronary artery disease status post bypass, PAD, diabetes mellitus, chronic kidney disease stage is not known, hypertension, hyperlipidemia, hypothyroidism glaucoma. Past Surgical History Cataract surgery Toe amputation CABG Reported Medications Travatan Z Opth Drops (Travoprost) 0.004 % Soln 1 Drop RIGHT EYE HS Carvedilol 6.25 Mg Tab 6.25 Mg PO BID Zocor (Simvastatin) 20 Mg Tab 20 Mg PO HS Nitroglycerin SL (Nitroglycerin) 0.4 Mg Subl 0.4 Mg SL DIRECTED PRN ONE TABLET UNDER THE TONGUE NEEDED FOR CHEST PAIN, MAY REPEAT EVERY FIVE MINUTES FOR A TOTAL OF 3 DOSES OR CALL 911 IF NO RELIEF Centrum Silver Adult 50+ (Multiple Vitamins W/ Minerals) 1 Tab Tab 1 Tab PO DAILY Levothyroxine (Levothyroxine Sodium) 50 Mcg Tab 50 Mcg PO DAILY Levemir Flextouch Pen Inj (Insulin Detemir) 300 unit/3 ML Pen 40 Units SQ HS Isosorbide Mononitrate ER (Isosorbide Mononitrate) 30 Mg Adriana 30 Mg PO DAILY Lasix (Furosemide) 40 Mg Tab 40 Mg PO DAILY Plavix (Clopidogrel Bisulfate) 75 Mg Tab 75 Mg PO DAILY Azopt Opth Drops (Brinzolamide) 1% Susp 1 Drop RIGHT EYE BID Combigan Opth Drops (Brimonidine-Timolol Opth Drops) 0.2-0.5% Soln 1 Drop RIGHT EYE Q12HR Aspirin EC Low Dose (Aspirin) 81 Mg Tabec 81 Mg PO DAILY Refresh Opth Drops (Polyvinyl Alcohol-Povidone Opth Drops) 1.4-0.6% Drops 1 Drop EACH EYE TID PRN Current Medications Medications (Trade) Dose Ordered Sig/Jacek Route Start Time Stop Time Status Last Admin (NS Flush) 2 ml UNSCH PRN IV FLUSH 09/03/16 22:00 (NS Flush) 2 ml BID IV FLUSH 09/04/16 09:00 (Narcan Inj) 0.4 mg UNSCH PRN IV 09/03/16 22:00 Furosemide 20 mg 20 mg BID@09,18 IV PUSH 09/04/16 09:00 (DOBUTamine PREMIX DRIP) 250 ml @ 14.475 mls/ hr [id number] IV 09/04/16 01:02 09/04/16 01:28 (Eliquis) 5 mg BID PO 09/04/16 09:00 (Ecotrin Ec) 81 mg DAILY PO 09/04/16 09:00 (Coreg) 6.25 mg BID PO 09/04/16 09:00 (Lasix) 40 mg BID PO 09/04/16 09:00 (Levemir Inj) 5 units Q12HR SQ 09/04/16 09:00 (Imdur) 30 mg DAILY@07 PO 09/04/16 07:00 (Synthroid) 50 mcg DAILY@0600 PO 09/04/16 06:00 (Bactroban Nasal 2% Oint) 1 applic BID EACH NARE 09/04/16 09:00 (Refresh Classic 1.4-0.6% Pf Opth Soln) 1 drop TID PRN EACH EYE 09/04/16 01:15 Patient Own Medication PT OWN MED: Suspens... BID RIGHT EYE 09/04/16 09:00 Hold Non-Formulary Medication ACHS SQ 09/04/16 07:00 UNV (Protonix) 20 mg DAILY PO 09/04/16 09:00 (Pravachol) 40 mg HS PO 09/04/16 21:00 (Xalatan 0.005% Opth Soln) 1 drop HS RIGHT EYE 09/04/16 21:00 (Tylenol) 650 mg Q6H PRN PO 09/04/16 01:15 (Lactulose Liq) 30 ml DAILY PO 09/04/16 09:00 Miscellaneous Information 1 [id number] XX 09/04/16 01:15 (Chlorhexidine 2% Cloth) 3 pack Taper DAILY@04 TOP 09/04/16 04:00 08/31/17 03:59 09/04/16 01:30 (Chlorhexidine 2% Cloth) 3 pack UNSCH PRN TOP 09/04/16 01:15 (Alphagan 0.2% Opth Soln) 1 drop Q12HR RIGHT EYE 09/04/16 09:00 (Timoptic 0.5% Opth Soln) 1 drop Q12HR RIGHT EYE 09/04/16 09:00 Substance Use Tobacco: Quit smoking 40 years ago Alcohol: Prescription med abuse: Denies Illicits: Denies Psychosocial History 70-year-old male, lives with sister, single Spiritual/Cultural Factors No reported uatsdin affiliations Living Will: Never completed Health Care Surrogate: Copy in medical record Durable Power of Stiff Leg Derrick Operator: Never completed Date completed: 09/04/16 Health Care Surrogate(s): Nadege Damico, sister, or [phone] Documented care wishes: Today's verbally stated goals: Patient states he would again want full resuscitation as it 'saved' him the last time one month ago. Physical Exam Vital Signs Date Time Temp Pulse Resp B/P Pulse Ox O2 Delivery O2 Flow Rate FiO2 09/04/16 08:04 96 35 09/04/16 06:00 94 09/04/16 04:24 96 35 09/04/16 04:00 97.4 93 17 139/62 97 09/04/16 04:00 93 09/04/16 01:30 91 09/04/16 01:03 95 80 09/04/16 00:39 97.5 93 20 118/55 100 09/03/16 23:15 20 97 BiPAP 50 09/03/16 23:15 97 50 09/03/16 23:00 93 20 107/65 100 Nasal Cannula 2 09/03/16 22:30 93 20 108/71 99 Nasal Cannula 2 09/03/16 21:45 94 16 108/68 100 Nasal Cannula 2 09/03/16 21:30 96 16 115/69 99 Nasal Cannula 2 09/03/16 21:00 95 16 108/67 100 Nasal Cannula 2 09/03/16 20:52 97.5 09/03/16 20:00 98 16 116/69 100 Nasal Cannula 2 09/03/16 19:45 97.9 66 22 93/45 97 09/03/16 09/04/16 19:00 07:00 Intake Total 124 ml Balance 124 ml Intake Oral 0 ml IV Total 124 ml # Voids 2 # Bowel Movements 0 Exam CONSTITUTIONAL/GENERAL: This is an adequately nourished patient, in no apparent distress. TUBES/LINES/DRAINS: SKIN: No jaundice, rashes, or lesions. Ecchymoses on upper extremities. No wounds seen anteriorly. Skin temperature appropriate. Not diaphoretic. HEAD: Atraumatic. Normocephalic. EYES: Pupils equal and round and reactive. Extraocular motions intact. No scleral icterus. No injection or drainage. ENT: Hearing grossly normal. Nose without bleeding or purulent drainage. Throat without visible erythema, exudates, masses, or lesions. NECK: Trachea midline. Supple, nontender. No palpable thyroid enlargement or nodularity. CARDIOVASCULAR: Regular rate and rhythm without murmurs, gallops, or rubs. No JVD. Peripheral pulses symmetric. RESPIRATORY/CHEST: On BiPap - Symmetric, unlabored respirations. Clear to auscultation. Breath sounds diminished A&P . No wheezes, rales, or rhonchi. GASTROINTESTINAL: Abdomen soft, non-tender, nondistended. No hepato-splenomegaly , or palpable masses. No guarding. Bowel sounds present. GENITOURINARY: Without palpable bladder distension. Damon catheter in place. MUSCULOSKELETAL: Extremities without clubbing, cyanosis, or edema. No joint tenderness or effusion noted. No calf tenderness. No mottling or clubbing. LYMPHATICS: No palpable cervical or supraclavicular adenopathy. NEUROLOGICAL: Awake and alert. Motor and sensory grossly within normal limits. Follows commands. appears to be Cognitively sharp. Moves all extremities. PSYCHIATRIC: No obvious anxiety/depression. no apparent hallucinations or other psychotic thought process. Diagnostic Tests Laboratory Laboratory Tests Test 09/03/16 09/03/16 09/04/16 09/04/16 20:05 22:54 00:45 04:23 White Blood Count 7.1 TH/MM3 6.3 TH/MM3 (4.0-11.0) (4.0-11.0) Red Blood Count 3.43 MIL/MM3 3.36 MIL/MM3 (4.50-5.90) (4.50-5.90) Hemoglobin 10.8 GM/DL 10.2 GM/DL (13.0-17.0) (13.0-17.0) Hematocrit 33.4 % 33.0 % (39.0-51.0) (39.0-51.0) Mean Corpuscular Volume 97.3 FL 98.2 FL (80.0-100.0) (80.0-100.0) Mean Corpuscular Hemoglobin 31.4 PG 30.2 PG (27.0-34.0) (27.0-34.0) Mean Corpuscular Hemoglobin 32.2 % 30.7 % Concent (32.0-36.0) (32.0-36.0) Red Cell Distribution Width 18.2 % 17.0 % (11.6-17.2) (11.6-17.2) Platelet Count 261 TH/MM3 227 TH/MM3 (150-450) (150-450) Mean Platelet Volume 8.6 FL 8.3 FL (7.0-11.0) (7.0-11.0) Neutrophils (%) (Auto) 68.1 % 65.8 % (16.0-70.0) (16.0-70.0) Lymphocytes (%) (Auto) 11.6 % 15.7 % (9.0-44.0) (9.0-44.0) Monocytes (%) (Auto) 13.0 % 12.1 % (0.0-8.0) (0.0-8.0) Eosinophils (%) (Auto) 6.0 % (0.0-4.0) 5.1 % (0.0-4.0) Basophils (%) (Auto) 1.3 % (0.0-2.0) 1.3 % (0.0-2.0) Neutrophils # (Auto) 4.8 TH/MM3 4.1 TH/MM3 (1.8-7.7) (1.8-7.7) Lymphocytes # (Auto) 0.8 TH/MM3 1.0 TH/MM3 (1.0-4.8) (1.0-4.8) Monocytes # (Auto) 0.9 TH/MM3 0.8 TH/MM3 (0-0.9) (0-0.9) Eosinophils # (Auto) 0.4 TH/MM3 0.3 TH/MM3 (0-0.4) (0-0.4) Basophils # (Auto) 0.1 TH/MM3 0.1 TH/MM3 (0-0.2) (0-0.2) CBC Comment DIFF FINAL DIFF FINAL Differential Comment Prothrombin Time 12.1 SEC (9.8-11.6) Prothromb Time International 1.1 RATIO Ratio Sodium Level 136 MEQ/L 136 MEQ/L (136-145) (136-145) Potassium Level 4.4 MEQ/L 4.4 MEQ/L (3.5-5.1) (3.5-5.1) Chloride Level 93 MEQ/L 92 MEQ/L (98-107) (98-107) Carbon Dioxide Level 38.9 MEQ/L 43.1 MEQ/L (21.0-32.0) (21.0-32.0) Anion Gap 4 MEQ/L (5-15) 1 MEQ/L (5-15) Blood Urea Nitrogen 23 MG/DL (7-18) 25 MG/DL (7-18) Creatinine 1.56 MG/DL 1.65 MG/DL (0.60-1.30) (0.60-1.30) Estimat Glomerular Filtration 44 ML/MIN (>89) 41 ML/MIN (>89) Rate Random Glucose 197 MG/DL 162 MG/DL (74-106) (74-106) Lactic Acid Level 0.9 mmol/L (0.4-2.0) Calcium Level 8.4 MG/DL 8.8 MG/DL (8.5-10.1) (8.5-10.1) Total Bilirubin 0.3 MG/DL 0.4 MG/DL (0.2-1.0) (0.2-1.0) Aspartate Amino Transf 16 U/L (15-37) 12 U/L (15-37) (AST/SGOT) Alanine Aminotransferase 18 U/L (12-78) 16 U/L (12-78) (ALT/SGPT) Alkaline Phosphatase 74 U/L (45-117) 72 U/L (45-117) Total Creatine Kinase 37 U/L (39-308) Troponin I 0.04 NG/ML (0.02-0.05) Total Protein 7.2 GM/DL 6.9 GM/DL (6.4-8.2) (6.4-8.2) Albumin 2.6 GM/DL 2.5 GM/DL (3.4-5.0) (3.4-5.0) Thyroid Stimulating Hormone 6.120 uIU/ML 3rd Gen (0.358-3.740) Blood Gas Puncture Site RT RADIAL Blood Gas Patient Temperature 98.6 Blood Gas HCO3 38 mmol/L (22-26) Blood Gas Base Excess 10.0 mmol/L (-2-2) Blood Gas Oxygen Saturation 97 % (90-100) Arterial Blood pH 7.18 (7.380-7.420) Arterial Blood Partial 107 mmHg Pressure CO2 (38-42) Arterial Blood Partial 138 mmHG Pressure O2 (61-120) Arterial Blood Oxygen Content 14.8 Vol % (12.0-20.0) Arterial Blood 2.1 % (0-4) Carboxyhemoglobin Arterial Blood Methemoglobin 0.5 % (0-2) Blood Gas Hemoglobin 10.7 G/DL (12.0-16.0) Oxygen Delivery Device NASAL CANNULA Blood Gas Liter Flow 3 L/M Nasal Screen MRSA (PCR) MRSA DETECTED (NOT DETECT) B-Type Natriuretic Peptide 769 PG/ML (0-100) Free Thyroxine 1.24 NG/DL (0.76-1.46) Test 09/04/16 04:50 Blood Gas Puncture Site RT RADIAL Blood Gas Patient Temperature 98.6 Blood Gas HCO3 38 mmol/L (22-26) Blood Gas Base Excess 10.8 mmol/L (-2-2) Blood Gas Oxygen Saturation 91 % (90-100) Arterial Blood pH 7.26 (7.380-7.420) Arterial Blood Partial 87 mmHg (38-42) Pressure CO2 Arterial Blood Partial 72 mmHg Pressure O2 (61-120) Arterial Blood Oxygen Content 13.0 Vol % (12.0-20.0) Arterial Blood 2.8 % (0-4) Carboxyhemoglobin Arterial Blood Methemoglobin 1.0 % (0-2) Blood Gas Hemoglobin 10.1 G/DL (12.0-16.0) Oxygen Delivery Device BIPAP Blood Gas Ventilator Setting IPAP 18/EPAP 8 Blood Gas Inspired Oxygen 35 % Result Diagram: 09/04/1642209/04/16422 Microbiology Microbiology Date/Time Procedure Status Source Growth 09/03/16 20:00 Aerobic Blood Culture Received Blood Peripheral Pending 09/03/16 20:00 Anaerobic Blood Culture Received Blood Peripheral Pending 09/03/16 20:05 Aerobic Blood Culture Received Blood Peripheral Pending 09/03/16 20:05 Anaerobic Blood Culture Received Blood Peripheral Pending Imaging Last [address] 09/03/161942 Signed Impressions: Service Date/Time: Saturday, September 03, 2016 20:20 - CONCLUSION: No acute intracranial disease. Osbaldo Abebe MD Chest X-Ray 09/03/161942 Signed Impressions: Service Date/Time: Saturday, September 03, 2016 19:55 - CONCLUSION: Cardiomegaly and pulmonary edema. Osbaldo Abebe MD Other Echo 08/03/2016 - Left ventricle: The cavity size was dilated. Wall thickness was normal. Systolic function was severely reduced. The estimated ejection fraction was 25%. Wall motion was normal; there were no regional wall motion abnormalities. - Mitral valve: Calcified annulus. Mild regurgitation. - Tricuspid valve: Moderate regurgitation. - Pulmonary arteries: Systolic pressure was moderately increased. PA peak pressure: 68mm Hg (S). Patient/Family Conference Present at Family Conference: patient Family Conference Location: Bedside, Telephone Issues Discussed: * Palliative care role, purpose, approach * Additional medical, psychosocial, and spiritual history * Patients general health, functional status, and cognitive changes in the months leading up to the current hospitalization * Patient/family understanding of the current medical problems * Patient/family understanding of prognosis * Patients goals of care as best understood from advance directives and/or conversations and/or values * Current medical treatment options and benefits/burdens of those options * Likely scenarios comparing ongoing aggressive care with a transition to comfort measures only * Questions answered to the best of my ability * Palliative care contact information provided Assessment and Plan Disease Oriented Problem List: (1) Shortness of breath (2) Ischemic cardiomyopathy (3) DM (diabetes mellitus) (4) Respiratory failure (5) Congestive heart failure with cardiomyopathy Symptom Scale: (1) Pain Comment: Continues to complain of right-sided rib pain post CPR approximately one month ago; now with prolonged bedrest (2) Dyspnea 0-10 Scale: 4 Comment: Recent hypoxic failure likely secondary to cardiomyopathy; managed on BiPAP at this time Pertinent Non-Medical Issues Psychosocial:70 yo male, originally from [place]. He worked in the [employer]. He tells me he is from his [place] who is living in [place]. He has 1 biological daughter, Allegra, who is also in [place]. He is mother is still living, age 91, and he had moved in to live with her. He has 2 sisters Unique and one brother Anastacio in this local area as well. Relies support from his sister Nadege. He had been functionally capable of managing his own ADLs, however, would use scooters or a wheelchair if she was going to go any distance. 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 Spiritual: He is an affiliated however, is a ongoing her in God and God's power to heal. Legal: Today he elected to have his sister Nadege serve as HCS. Nadege has been involved in his care and oversight and is in communication with the rest of the family. She agrees to serve and feels she would follow his wishes. Ethical issues impacting care: Important Contacts Nadege Damico, STACEY, sister, or [phone] Prognosis Prognosis is guarded in light of his significant dilated cardiomyopathy with CHF. EF 25%, AICD Code Status: Full Code Plan Decision Maker: sister Jerry, - [phone] Code Status: Patient clearly indicates that he wishes to be a full CODE STATUS and would want CPR. He has no designated living will Family Discussion: Patient is of adequate cognition, although it is difficult to communicate with the BiPAP mask and his thick [place] accident. I'm able to converse with him regarding his current clinical condition and asked him if in the event his heart were to stop again like it. Did a month ago if he would again want CPR. He immediately told me that he would as his "God" saved him the last time. He started singing a hymn for me at that point. He has no appointed health care surrogate at this time. He is able to tell me that he is from his , Coty, who lives in [place] and his daughter Allegra is living there as well. Asked with him that he would want to appoint a healthcare surrogate if needed. He was unable to provide a scar direction in his needs. I was able to converse with his sister Nikki by phone. He has 2 sisters and one brother locally as well as his mother. Nikki is able to give me more information regarding the dynamics between his and daughter. Nikki feels that he has maintained cognitive status and is able to make decisions and is able to appoint a healthcare surrogate. S-he states that he is blind in his right eye. However, his left eye has limited site as well. She states that prior his first admission he had been able to manage his own ADLs and was walking, however, would use scooters for longer distances. Nikki also has been in communication with his daughter, Allegra and the family and has been instrumental in keeping them up-to-date on his clinical state. Symptoms: Dyspnea, pain, Palliative care phone number provided - will follow during hospital stay. Thank you for the opportunity to participate in the care of Mr. Damico. Natalie Vargas Sep 04, 2016 10:31
--- NOTE | 2016-09-04 11:01 | EKG ---
Date Performed: 09/03/2016 Time Performed: 19:34:36 PTAGE: 70 years EKG: ELECTRONIC VENTRICULAR PACEMAKER ABNORMAL RHYTHM ECG PREVIOUS TRACING : 08/26/2016 13.30 Compared to prior tracing no significant change DOCTOR: Abena Pate Interpretating Date/Time 09/04/2016 11:00:31
--- NOTE | 2016-09-04 11:34 | HHI.CCPN ---
Subjective Remarks/Hospital Course 09/03: 70 y/[facility] man [facility] with vision [facility]. He has a longstanding dilated cardiomyopathy with pulmonary artery hypertension. The substrate is basically end-stage systolic heart failure and we will sort through mechanisms associated with vision change. There are numerous medication and perfusion issues that may have changed his vision in the left eye. 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 He is presently too uncooperative to evaluate vision further and too unstable to perform MRI for possible optic nerve impingement. The two female family members at the bedside feel that we are perpetuating his suffering but his , they say, insists that everything be done to keep him alive. Listed below are recommendations from discharge 5 days prior to current admission: Assessment and Plan 1. CAD Status post CABG/Ischemic cardiomyopathy with ejection fraction of 25% on echocardiogram dated 08/03/[address] as per Doctor Salmon the Pacemaker was interrogated two months ago and no evidence for firing, he agreed with switch of Plavix for Apixaban as per mission support specialist he will need to be off one of the Anti-Platelet medicines due to that he is on Heparin and recent GI bleed, status post Stress test and no ischemic disease, as per trade show specialist recommended to switch to Eliquis and discontinue Heparin. Cardiology agree with Discharge, signed off the case 2. CKD III creatinine trending down to baseline. continue drinking water 3. COPD on Bronchodilator, Mucolytic and incentive spirometry, not exacerbated at this time 4. History of STEMI with Cardiac Arrest on 08/04/16, status post CPR with ROSC. stable. 5. DM II continue sliding scale on Moderate dose and added Levemir 5 units BID. better control. 6. Anemia Hemoglobin 9.2 he had recent GI bleed 08/13/16, okay from GI specialist for discharge. 7. Hyperlipidemia to continue Statins 8. CAD/CHF Systolic dysfunction EF 25% status post Pacemaker placement 9. Hypertension controlled. 10. GI bleed/Sigmoid diverticulosis/Internal and External Hemorrhoids/7mm Colonic Polyps Continue PPI and Carafate. 11. BPH to continue Flomax 0.4 mg daily. 12. UTI Treated on Rocephin no further antibiotics. 13. 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 contact precautions. Mupirocin Ointment 09/04: Remains on BiPAP with full facemask. Objective Vital Signs Date Time Temp Pulse Resp B/P Pulse Ox O2 Delivery O2 Flow Rate FiO2 09/04/16 10:37 98 35 09/04/16 10:00 90 09/04/16 08:00 98.1 20 126/53 09/03/16 23:15 BiPAP 09/03/16 23:00 2 Result Diagram: 09/04/16 0423 09/04/16 0423 Other Results Laboratory Tests Test 09/03/16 09/04/16 22:54 04:50 Blood Gas Puncture Site RT RADIAL RT RADIAL Blood Gas Patient Temperature 98.6 98.6 Blood Gas HCO3 38 mmol/L 38 mmol/L (22-26) (22-26) Blood Gas Base Excess 10.0 mmol/L 10.8 mmol/L (-2-2) (-2-2) Blood Gas Oxygen Saturation 97 % (90-100) 91 % (90-100) Arterial Blood pH 7.18 7.26 (7.380-7.420) (7.380-7.420) Arterial Blood Partial 107 mmHg 87 mmHg (38-42) Pressure CO2 (38-42) Arterial Blood Partial 138 mmHG 72 mmHg Pressure O2 (61-120) (61-120) Arterial Blood Oxygen Content 14.8 Vol % 13.0 Vol % (12.0-20.0) (12.0-20.0) Arterial Blood 2.1 % (0-4) 2.8 % (0-4) Carboxyhemoglobin Arterial Blood Methemoglobin 0.5 % (0-2) 1.0 % (0-2) Blood Gas Hemoglobin 10.7 G/DL 10.1 G/DL (12.0-16.0) (12.0-16.0) Oxygen Delivery Device NASAL CANNULA BIPAP Blood Gas Liter Flow 3 L/M Blood Gas Ventilator Setting IPAP 18/EPAP 8 Blood Gas Inspired Oxygen 35 % Imaging Last Impressions Head CT 09/03/161942 Signed Impressions: Service Date/Time: Saturday, September 03, 2016 20:20 - CONCLUSION: No acute intracranial disease. Osbaldo Abebe MD Chest X-Ray 09/03/161942 Signed Impressions: Service Date/Time: Saturday, September 03, 2016 19:55 - CONCLUSION: Cardiomegaly and pulmonary edema. Osbaldo Abebe MD Objective Remarks Head: Normal. Blind right eye. Neck: Chronic rigidity, airway patent. Lungs: On BiPAP with full facemask, Diffuse crackles, light bilateral wheezes. Heart: Irreg Irreg, + JVD. Abdomen: Soft, no guarding. Quiet. Extremities: Cool, poorly perfused. No edema. Neuro: Encephalopathic, Moves arms spontaneously. Speech not clear. Breathing labored. A/P Assessment and Plan Assessment: 1. Hypoxemic Respiratory Failure. 2. Vision changes left eye [facility] to [facility]. I could not get cooperation to examine. 3. Dilated ischemic cardiomyopathy and end-stage systolic heart failure. 4. Diabetes type 2. 5. CO2 retention. Plan: 1. Continue BiPAP /6. 2. ABG shows CO2 retention with respiratory acidosis 3. Blood cultures. 4. UA. 5. Diuretics. 6. Continue oral anticoagulant. 7. Palliative Care consult Overall impression: End-stage systolic heart failure. Critically ill and unstable due to pulmonary edema. Unable to evaluate further his vision changes left eye due to distress. Will try dobutamine and diuretics immediately. Hopefully Palliative Care can help us sort out family issues regarding code status. Critical care 35 mins Omkar Huff MD Sep 04, 2016 11:34
[2016-09-04 14:27] LABS: BACTERIA, URINE RARE /hpf; BLOOD, URINE TRACE (NEG); GLUCOSE,URINE NEG (NEG); KETONE, URINE NEG (NEG); NITRITE,URINE NEG (NEG); SQUAMOUS EPITHELIAL CELL URINE <1 /hpf (0-5); URINE COLOR YELLOW (YELLW/STRAW)
[2016-09-04 14:28] LABS: COMMENT (UR) CATH-CULTURE IND; CULTURE IF INDICATED CATH CULTURE IND
[2016-09-04] MEDS: PRAVASTATIN SOD 40 MG TAB PO SCH (21:17)
[2016-09-04] MEDS: LATANOPROST 0.005% OPHT SOLN 2.5 ML BTL RIGHT EYE SCH (21:18)
[2016-09-05] VITALS (16 sets, daily range): BP systolic 97–130; BP diastolic 49–65; PULSE 84–97; RESP 18–27; TEMP 98.2–99.3; O2SAT 90–99
[2016-09-05] MEDS: ACETAMINOPHEN 325 MG TAB PO PRN (00:13)
[2016-09-05] MEDS: RESP: ALBUTEROL 2.5 MG/IPRATROPIUM 0.5 MG NEB (SCH) INH ×4 (03:55→20:25)
[2016-09-05] MEDS: CHLORHEXIDINE GLUCONATE 2 % 1 PACK (2 CLOTHS) TOP SCH (04:00)
[2016-09-05] MEDS: RESP: IPRATROPIUM 0.5 MG/2.5 ML NEB NEB SCH ×2 (04:00→10:00)
[2016-09-05 04:14] LABS: AUTOMATED NEUTROPHIL # 4.3 TH/MM3 (1.8-7.7); EOSINOPHIL # 0.4 TH/MM3 (0-0.4); EOSINOPHIL % 5.3 % (0.0-4.0); HEMATOCRIT 31.1 % (39.0-51.0); LYMPH % 17.5 % (9.0-44.0); LYMPHOCYTE # 1.2 TH/MM3 (1.0-4.8); MEAN CELL VOLUME 94.1 FL (80.0-100.0); MEAN CORPUSCULAR HGB CONC 32.9 % (32.0-36.0); MONO % 16.4 % (0.0-8.0); NEUT % 60.8 % (16.0-70.0); PLATELET COUNT 218 TH/MM3 (150-450); RED BLOOD COUNT 3.31 MIL/MM3 (4.50-5.90); RED CELL DISTRIBUTION WIDTH 17.5 % (11.6-17.2); WHITE BLOOD COUNT 7.1 TH/MM3 (4.0-11.0)
[2016-09-05 04:19] LABS: HEMO FLAGS AUTO DIFF
[2016-09-05 04:46] LABS: BICARBONATE 42.9 MEQ/L (21.0-32.0); POTASSIUM 3.8 MEQ/L (3.5-5.1)
[2016-09-05 05:05] LABS: PLATELET ESTIMATE SMEAR NORMAL (NORMAL); PLATELET MORPHOLOGY NORMAL (NORMAL); SCAN/DIFF AUTO DIFF CONFIRMED
[2016-09-05 05:11] LABS: ACANTHOCYTES OCC (NORMAL)
[2016-09-05 05:20] LABS: KERATOCYTES OCC (NORMAL)
[2016-09-05 05:22] LABS: STOMATOCYTES 1+ (NORMAL)
[2016-09-05] MEDS: ISOSORBIDE MONONITRATE 30 MG TAB PO SCH (05:29)
[2016-09-05] MEDS: LEVOTHYROXINE SODIUM 50 MCG TAB PO SCH (05:29)
[2016-09-05] MEDS: SODIUM CHLORIDE 0.9% FLUSH 10 ML FLUSH IV FLUSH SCH ×2 (09:00→21:26)
[2016-09-05] MEDS: FUROSEMIDE 20 MG/2 ML VIAL IV PUSH SCH ×2 (09:00→17:54)
[2016-09-05] MEDS: LACTULOSE SYRUP 20 GM/30 ML CUP PO SCH (09:00)
--- NOTE | 2016-09-05 09:21 | PD.TRANSFR ---
Transfer Summary Admission Date Sep 03, 2016 at 21:49 Admitting Diagnosis shortness of breath, pulmonary edema Diagnoses: Transfer Summary/Subjective 09/03: 70 [facility]. He has a longstanding dilated cardiomyopathy with pulmonary artery hypertension. The substrate is basically end-stage systolic heart failure and we will sort through mechanisms associated with vision change. There are numerous medication and perfusion issues that may have changed his vision in the left eye. 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 He is presently too uncooperative to evaluate vision further and too unstable to perform MRI for possible optic nerve impingement. The two female family members at the bedside feel that we are perpetuating his suffering but his , they say, insists that everything be done to keep him alive. Listed below are recommendations from discharge 5 days prior to current admission: Assessment and Plan 1. CAD Status post CABG/Ischemic cardiomyopathy with ejection fraction of 25% on echocardiogram dated 08/03/[address] as per Doctor Salmon the Pacemaker was interrogated two months ago and no evidence for firing, he agreed with switch of Plavix for Apixaban as per water resource engineering specialist he will need to be off one of the Anti-Platelet medicines due to that he is on Heparin and recent GI bleed, status post Stress test and no ischemic disease, as per pediatric sports medicine specialist recommended to switch to Eliquis and discontinue Heparin. Cardiology agree with Discharge, signed off the case 2. CKD III creatinine trending down to baseline. continue drinking water 3. COPD on Bronchodilator, Mucolytic and incentive spirometry, not exacerbated at this time 4. History of STEMI with Cardiac Arrest on 08/04/16, status post CPR with ROSC. stable. 5. DM II continue sliding scale on Moderate dose and added Levemir 5 units BID. better control. 6. Anemia Hemoglobin 9.2 he had recent GI bleed 08/13/16, okay from GI specialist for discharge. 7. Hyperlipidemia to continue Statins 8. CAD/CHF Systolic dysfunction EF 25% status post Pacemaker placement 9. Hypertension controlled. 10. GI bleed/Sigmoid diverticulosis/Internal and External Hemorrhoids/7mm Colonic Polyps Continue PPI and Carafate. 11. BPH to continue Flomax 0.4 mg daily. 12. UTI Treated on Rocephin no further antibiotics. 13. 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 contact precautions. Mupirocin Ointment 09/04: Remains on BiPAP with full facemask. 09/05: Diuresed well since yesterday. On Ventimask currently and appears comfortable. Advancing diet. Wishes to remain a full CODE STATUS. Objective Vital Signs Date Time Temp Pulse Resp B/P Pulse Ox O2 Delivery O2 Flow Rate FiO2 09/05/16 06:00 92 09/05/16 04:15 95 35 09/05/16 04:00 98.4 22 130/57 09/04/16 19:50 Venturi Mask 6.00 Intake and Output 09/04/16 09/04/16 09/05/16 08:00 16:00 00:00 Intake Total 124 ml 241 ml 148 ml Output Total 2200 ml 1650 ml Balance 124 ml -1959 ml -1502 ml Result Diagram: 09/05/16 0350 09/05/16 0350 Imaging Last Impressions Head CT 09/03/161942 Signed Impressions: Service Date/Time: Saturday, September 03, 2016 20:20 - CONCLUSION: No acute intracranial disease. Osbaldo Abebe MD Chest X-Ray 09/03/161942 Signed Impressions: Service Date/Time: Saturday, September 03, 2016 19:55 - CONCLUSION: Cardiomegaly and pulmonary edema. Osbaldo Abebe MD Objective Remarks Head: Normal. Blind right eye. Neck: Chronic rigidity, airway patent. Lungs: On BiPAP with full facemask, Diffuse crackles, light bilateral wheezes. Heart: Irreg Irreg, + JVD. Abdomen: Soft, no guarding. Quiet. Extremities: Cool, poorly perfused. No edema. Neuro: Encephalopathic, Moves arms spontaneously. Speech not clear. Breathing labored. A/P Assessment and Plan Assessment: 1. Hypoxemic Respiratory Failure. 2. [facility]. I could not get cooperation to examine. 3. Dilated ischemic cardiomyopathy and end-stage systolic heart failure. 4. Diabetes type 2. 5. CO2 retention. Plan: 1. Continue BiPAP 12/6 as needed. Now on ventimask 50% O2 2. ABG showed CO2 retention with respiratory acidosis which improved some. 3. f/u Blood cultures. UA 4. Advance to 2gm sdoium low fat diet. 5. Continue Diuretics. 6. Continue oral anticoagulant. 7. Palliative Care consulted and following 8. Titrate off dobutamine, decreased to 1.25mcg/kg/min and will titrate off eventually. Overall impression: End-stage systolic heart failure. Critically ill and unstable due to pulmonary edema. Unable to evaluate further his vision changes left eye due to distress. Responded to dobutamine and diuretics. Hopefully Palliative Care can help us sort out family issues regarding code status. Currently patient wishes to be full CODE STATUS.. We'll consult and transfer to hospitalist service for 09/06 for further medical management. Omkar Huff MD Sep 05, 2016 09:21
[2016-09-05] MEDS: CARVEDILOL 6.25 MG TAB PO SCH ×2 (09:41→21:26)
[2016-09-05] MEDS: INSULIN DETEMIR 100 UNITS/ML VIAL SQ SCH ×2 (09:41→21:27)
[2016-09-05] MEDS: ASPIRIN EC 81 MG TABEC PO SCH (09:41)
[2016-09-05] MEDS: FUROSEMIDE 40 MG TAB PO SCH ×2 (09:41→21:26)
[2016-09-05] MEDS: MUPIROCIN 2% OINT 1 APPLIC/GM SYR EACH NARE SCH ×2 (09:42→21:25)
[2016-09-05] MEDS: APIXABAN 5 MG TABLET PO SCH ×2 (09:42→21:26)
[2016-09-05] MEDS: PANTOPRAZOLE SOD 20 MG DELAYED RELEASE TAB PO SCH (09:42)
[2016-09-05] MEDS: BRIMONIDINE TARTRATE 0.2% OPHT SOLN 5 ML BTL RIGHT EYE SCH ×2 (09:43→21:27)
[2016-09-05] MEDS: TIMOLOL MALEATE 0.5% OPHT SOLN 5 ML BTL RIGHT EYE SCH ×2 (09:43→21:27)
--- NOTE | 2016-09-05 14:30 | HHI.HCPN ---
Reason for visit a. To assist with evaluation and management of symptoms including:dyspnea b. To assist medical decision maker(s) with: better understanding of current medical conditions; weighing benefits/burdens of medical treatment options; making medical treatment decisions. Subjective/Interval History Md Damico is doing well this morning. Is now on 3 L nasal cannula. His respirations are even and unlabored. He is conversant and oriented. He was able to tell me more of his social history story and his family. He was observed at lunchtime managing a regular diet. However, he was being fed by the nurse as he has arthritis to his dominant right hand and has a hard time holding utensils. States the weakness in his hand occurred when he was back in [place]. He denies any prior history of having a stroke, only heart problems. Discussed the nature of his heart disease with him. Reviewed his clinical history. Over the last 30 days including the heart attack and code in July. Discussed that with the nature of his heart disease dilated cardiomyopathy with pulmonary artery hypertension and his congestive heart failure that this is at "End stage". He really did not comprehend the meaning of that, thinking that there were medicines that he could be given that would "strengthen" his heart. He does not recall exactly how long he has had the PPM/AICD, however, states that when it was last queried he had 4 more years of battery life left. Shared with him that he is a high risk for recurrence of exacerbation of congestive heart failure as well as a recurrence of a heart attack. Once again reviewed CODE STATUS and the difference between FULL CODE versus DNR. Also discussed the option of hospice/palliative management , which could manage his symptoms in the skilled facility or home Versus returning to the hospital for aggressive management. At this point, he wanted to think about it and talk with his family. Patient remains a full code with no living will. He does have an appointed [facility] sister Nikki In light of his clinical progress, he is likely to discharge, yet again. He will need skilled placement for strengthening. He was living at home with his 91-year-old mother. He has 2 sisters and her brother who lives nearby. However , he requires a higher level of care due to his disability / bedridden status. Urine culture positive for yeastpulmonary. On 2 prior admissions, he had a problem with GI bleed/anemia, at this time his hemoglobin remains stable at 10.2 Advance Directives Living Will: Never completed Health Care Surrogate: Copy in medical record Durable Power of Acute Care Physical Therapist: Never completed Advance Directive Specifics Date completed: 09/04/16 Health Care Surrogate(s): Nadege Damico, sister, or [phone] Documented care wishes: Objective Vital Signs Date Time Temp Pulse Resp B/P Pulse Ox O2 Delivery O2 Flow Rate FiO2 09/05/16 12:00 98.7 97 27 114/65 90 09/05/16 12:00 97 09/05/16 10:00 94 09/05/16 10:00 96 Nasal Cannula 4.00 09/05/16 09:30 97 Venturi Mask 40 09/05/16 08:00 93 09/05/16 08:00 93 Venturi Mask 40 09/05/16 08:00 99.3 93 23 97/50 93 09/05/16 06:00 92 09/05/16 04:15 95 35 09/05/16 04:00 84 09/05/16 04:00 98.4 84 22 130/57 94 09/05/16 02:00 85 09/05/16 01:13 20 09/05/16 01:12 95 35 09/05/16 00:00 98.2 92 20 108/53 93 09/05/16 00:00 92 09/04/16 22:07 93 35 09/04/16 22:00 88 09/04/16 20:00 92 09/04/16 20:00 98.7 92 21 112/55 95 09/04/16 19:50 96 Venturi Mask 6.00 40 09/04/16 19:50 96 35 09/04/16 19:00 95 Venturi Mask 50 09/04/16 18:00 94 09/04/16 16:00 98.3 91 23 93/53 96 09/04/16 16:00 91 09/04/16 16:00 96 Venturi Mask 50 09/04/16 15:55 93 Venturi Mask 6.00 50 09/04/16 14:55 98 35 Intake & Output 09/05/16 09/05/16 07:00 19:00 Intake Total 298 ml Output Total 2850 ml Balance -2552 ml Intake Oral 60 ml IV Total 238 ml Output Urine Total 2850 ml # Bowel Movements 0 Physical Exam CONSTITUTIONAL/GENERAL: This is an adequately nourished patient, in no apparent distress. TUBES/LINES/DRAINS: Nasal cannula, urinary catheter SKIN: No jaundice, rashes, or lesions. Ecchymoses on upper extremities. No wounds seen anteriorly. Skin temperature appropriate. Not diaphoretic. HEAD: Atraumatic. Normocephalic. EYES: Pupils equal and round and reactive. Extraocular motions intact. No scleral icterus. No injection or drainage. ENT: Hearing grossly normal. Nose without bleeding or purulent drainage. Throat without visible erythema, exudates, masses, or lesions. NECK: Trachea midline. Supple, nontender. No palpable thyroid enlargement or nodularity. CARDIOVASCULAR: Regular rate and rhythm without murmurs, gallops, or rubs. No JVD. Peripheral pulses symmetric. RESPIRATORY/CHEST: On 3 L nasal cannula- Symmetric, unlabored respirations. Clear to auscultation. Breath sounds diminished A&P . No wheezes, rales, or rhonchi. GASTROINTESTINAL: Abdomen soft, non-tender, nondistended. No hepato-splenomegaly , or palpable masses. No guarding. Bowel sounds present. GENITOURINARY: Without palpable bladder distension. Damon catheter in place. MUSCULOSKELETAL: Extremities without clubbing, cyanosis, or edema. No joint tenderness or effusion noted. No calf tenderness. No mottling or clubbing. LYMPHATICS: No palpable cervical or supraclavicular adenopathy. NEUROLOGICAL: Awake and alert. Motor and sensory grossly within normal limits. Follows commands. appears to be Cognitively sharp. Moves all extremities. PSYCHIATRIC: No obvious anxiety/depression. no apparent hallucinations or other psychotic thought process. Diagnostic Tests Laboratory Laboratory Tests Test 09/03/16 09/03/16 09/04/16 09/04/16 20:05 22:54 00:45 04:23 White Blood Count 7.1 TH/MM3 6.3 TH/MM3 (4.0-11.0) (4.0-11.0) Red Blood Count 3.43 MIL/MM3 3.36 MIL/MM3 (4.50-5.90) (4.50-5.90) Hemoglobin 10.8 GM/DL 10.2 GM/DL (13.0-17.0) (13.0-17.0) Hematocrit 33.4 % 33.0 % (39.0-51.0) (39.0-51.0) Mean Corpuscular Volume 97.3 FL 98.2 FL (80.0-100.0) (80.0-100.0) Mean Corpuscular Hemoglobin 31.4 PG 30.2 PG (27.0-34.0) (27.0-34.0) Mean Corpuscular Hemoglobin 32.2 % 30.7 % Concent (32.0-36.0) (32.0-36.0) Red Cell Distribution Width 18.2 % 17.0 % (11.6-17.2) (11.6-17.2) Platelet Count 261 TH/MM3 227 TH/MM3 (150-450) (150-450) Mean Platelet Volume 8.6 FL 8.3 FL (7.0-11.0) (7.0-11.0) Neutrophils (%) (Auto) 68.1 % 65.8 % (16.0-70.0) (16.0-70.0) Lymphocytes (%) (Auto) 11.6 % 15.7 % (9.0-44.0) (9.0-44.0) Monocytes (%) (Auto) 13.0 % 12.1 % (0.0-8.0) (0.0-8.0) Eosinophils (%) (Auto) 6.0 % (0.0-4.0) 5.1 % (0.0-4.0) Basophils (%) (Auto) 1.3 % (0.0-2.0) 1.3 % (0.0-2.0) Neutrophils # (Auto) 4.8 TH/MM3 4.1 TH/MM3 (1.8-7.7) (1.8-7.7) Lymphocytes # (Auto) 0.8 TH/MM3 1.0 TH/MM3 (1.0-4.8) (1.0-4.8) Monocytes # (Auto) 0.9 TH/MM3 0.8 TH/MM3 (0-0.9) (0-0.9) Eosinophils # (Auto) 0.4 TH/MM3 0.3 TH/MM3 (0-0.4) (0-0.4) Basophils # (Auto) 0.1 TH/MM3 0.1 TH/MM3 (0-0.2) (0-0.2) CBC Comment DIFF FINAL DIFF FINAL Differential Comment Prothrombin Time 12.1 SEC (9.8-11.6) Prothromb Time International 1.1 RATIO Ratio Sodium Level 136 MEQ/L 136 MEQ/L (136-145) (136-145) Potassium Level 4.4 MEQ/L 4.4 MEQ/L (3.5-5.1) (3.5-5.1) Chloride Level 93 MEQ/L 92 MEQ/L (98-107) (98-107) Carbon Dioxide Level 38.9 MEQ/L 43.1 MEQ/L (21.0-32.0) (21.0-32.0) Anion Gap 4 MEQ/L (5-15) 1 MEQ/L (5-15) Blood Urea Nitrogen 23 MG/DL (7-18) 25 MG/DL (7-18) Creatinine 1.56 MG/DL 1.65 MG/DL (0.60-1.30) (0.60-1.30) Estimat Glomerular Filtration 44 ML/MIN (>89) 41 ML/MIN (>89) Rate Random Glucose 197 MG/DL 162 MG/DL (74-106) (74-106) Lactic Acid Level 0.9 mmol/L (0.4-2.0) Calcium Level 8.4 MG/DL 8.8 MG/DL (8.5-10.1) (8.5-10.1) Total Bilirubin 0.3 MG/DL 0.4 MG/DL (0.2-1.0) (0.2-1.0) Aspartate Amino Transf 16 U/L (15-37) 12 U/L (15-37) (AST/SGOT) Alanine Aminotransferase 18 U/L (12-78) 16 U/L (12-78) (ALT/SGPT) Alkaline Phosphatase 74 U/L (45-117) 72 U/L (45-117) Total Creatine Kinase 37 U/L (39-308) Troponin I 0.04 NG/ML (0.02-0.05) Total Protein 7.2 GM/DL 6.9 GM/DL (6.4-8.2) (6.4-8.2) Albumin 2.6 GM/DL 2.5 GM/DL (3.4-5.0) (3.4-5.0) Thyroid Stimulating Hormone 6.120 uIU/ML 3rd Gen (0.358-3.740) Blood Gas Puncture Site RT RADIAL Blood Gas Patient Temperature 98.6 Blood Gas HCO3 38 mmol/L (22-26) Blood Gas Base Excess 10.0 mmol/L (-2-2) Blood Gas Oxygen Saturation 97 % (90-100) Arterial Blood pH 7.18 (7.380-7.420) Arterial Blood Partial 107 mmHg Pressure CO2 (38-42) Arterial Blood Partial 138 mmHG Pressure O2 (61-120) Arterial Blood Oxygen Content 14.8 Vol % (12.0-20.0) Arterial Blood 2.1 % (0-4) Carboxyhemoglobin Arterial Blood Methemoglobin 0.5 % (0-2) Blood Gas Hemoglobin 10.7 G/DL (12.0-16.0) Oxygen Delivery Device NASAL CANNULA Blood Gas Liter Flow 3 L/M Nasal Screen MRSA (PCR) MRSA DETECTED (NOT DETECT) B-Type Natriuretic Peptide 769 PG/ML (0-100) Free Thyroxine 1.24 NG/DL (0.76-1.46) Test 09/04/16 09/04/16 09/05/16 04:50 09:45 03:50 Blood Gas Puncture Site RT RADIAL Blood Gas Patient Temperature 98.6 Blood Gas HCO3 38 mmol/L (22-26) Blood Gas Base Excess 10.8 mmol/L (-2-2) Blood Gas Oxygen Saturation 91 % (90-100) Arterial Blood pH 7.26 (7.380-7.420) Arterial Blood Partial 87 mmHg (38-42) Pressure CO2 Arterial Blood Partial 72 mmHg Pressure O2 (61-120) Arterial Blood Oxygen Content 13.0 Vol % (12.0-20.0) Arterial Blood 2.8 % (0-4) Carboxyhemoglobin Arterial Blood Methemoglobin 1.0 % (0-2) Blood Gas Hemoglobin 10.1 G/DL (12.0-16.0) Oxygen Delivery Device BIPAP Blood Gas Ventilator Setting IPAP 18/EPAP 8 Blood Gas Inspired Oxygen 35 % Urine Color YELLOW (YELLW/STRAW) Urine Turbidity CLEAR (CLEAR) Urine pH 5.0 (5.0-8.5) Urine Specific [place] 1.008 (1.002-1.035) Urine Protein NEG mg/dL (NEG-TRACE) Urine Glucose (UA) NEG mg/dL (NEG) Urine Ketones NEG mg/dL (NEG) Urine Occult Blood TRACE (NEG) Urine Nitrite NEG (NEG) Urine Bilirubin NEG (NEG) Urine Urobilinogen LESS THAN 2.0 MG/DL (LESS THAN 2.0) Urine Leukocyte Esterase TRACE (NEG) Urine RBC 19 /hpf (0-3) Urine WBC 1 /hpf (0-5) Urine Squamous Epithelial <1 /hpf (0-5) Cells Urine Bacteria RARE /hpf (NONE) Urine Yeast (Budding) MOD (NONE) Microscopic Urinalysis Comment CATH-CULTURE IND White Blood Count 7.1 TH/MM3 (4.0-11.0) Red Blood Count 3.31 MIL/MM3 (4.50-5.90) Hemoglobin 10.2 GM/DL (13.0-17.0) Hematocrit 31.1 % (39.0-51.0) Mean Corpuscular Volume 94.1 FL (80.0-100.0) Mean Corpuscular Hemoglobin 31.0 PG (27.0-34.0) Mean Corpuscular Hemoglobin 32.9 % Concent (32.0-36.0) Red Cell Distribution Width 17.5 % (11.6-17.2) Platelet Count 218 TH/MM3 (150-450) Mean Platelet Volume 8.4 FL (7.0-11.0) Neutrophils (%) (Auto) 60.8 % (16.0-70.0) Lymphocytes (%) (Auto) 17.5 % (9.0-44.0) Monocytes (%) (Auto) 16.4 % (0.0-8.0) Eosinophils (%) (Auto) 5.3 % (0.0-4.0) Basophils (%) (Auto) 0.0 % (0.0-2.0) Neutrophils # (Auto) 4.3 TH/MM3 (1.8-7.7) Lymphocytes # (Auto) 1.2 TH/MM3 (1.0-4.8) Monocytes # (Auto) 1.2 TH/MM3 (0-0.9) Eosinophils # (Auto) 0.4 TH/MM3 (0-0.4) Basophils # (Auto) 0.0 TH/MM3 (0-0.2) CBC Comment AUTO DIFF Differential Comment AUTO DIFF CONFIRMED Platelet Estimate NORMAL (NORMAL) Platelet Morphology Comment NORMAL (NORMAL) Stomatocytes 1+ (NORMAL) Acanthocytes OCC (NORMAL) Keratocytes OCC (NORMAL) Sodium Level 137 MEQ/L (136-145) Potassium Level 3.8 MEQ/L (3.5-5.1) Chloride Level 89 MEQ/L (98-107) Carbon Dioxide Level 42.9 MEQ/L (21.0-32.0) Anion Gap 5 MEQ/L (5-15) Blood Urea Nitrogen 23 MG/DL (7-18) Creatinine 1.31 MG/DL (0.60-1.30) Estimat Glomerular Filtration 54 ML/MIN (>89) Rate Random Glucose 102 MG/DL (74-106) Lactic Acid Level 0.8 mmol/L (0.4-2.0) Calcium Level 8.8 MG/DL (8.5-10.1) Result Diagram: 09/05/16 0350 09/05/16 0350 Microbiology Microbiology Date/Time Procedure Status Source Growth 09/03/16 20:00 Aerobic Blood Culture - Preliminary Resulted Blood Peripheral NO GROWTH IN 2 DAYS 09/03/16 20:00 Anaerobic Blood Culture - Preliminary Resulted Blood Peripheral NO GROWTH IN 2 DAYS 09/03/16 20:05 Aerobic Blood Culture - Preliminary Resulted Blood Peripheral NO GROWTH IN 2 DAYS 09/03/16 20:05 Anaerobic Blood Culture - Preliminary Resulted Blood Peripheral NO GROWTH IN 2 DAYS 09/04/16 09:45 Urine Culture - Preliminary Resulted Urine Catheterized Urine Yeast Species Imaging Last [address] 09/03/161942 Signed Impressions: Service Date/Time: Saturday, September 03, 2016 20:20 - CONCLUSION: No acute intracranial disease. Osbaldo Abebe MD Chest X-Ray 09/03/161942 Signed Impressions: Service Date/Time: Saturday, September 03, 2016 19:55 - CONCLUSION: Cardiomegaly and pulmonary edema. Osbaldo Abebe MD Assessment and Plan Disease Oriented Problem List: (1) Shortness of breath Comment: Improving. (2) Ischemic cardiomyopathy (3) DM (diabetes mellitus) (4) Respiratory failure Comment: Recent hypoxic failure likely secondary to cardiomyopathy; (5) Congestive heart failure with cardiomyopathy Symptom Scale: (1) Pain 0-10 Scale: 3 Comment: Continues to complain of right-sided rib pain post CPR approximately one month ago; now with prolonged bedrest (2) Dyspnea 0-10 Scale: 4 Pertinent Non-Medical Issues Psychosocial:70 yo male, originally from [place]. He worked in the [employer]. He tells me he is from his [place] who is living in [place]. He has 1 biological daughter, Allegra, who is also in [place]. He is mother is still living, age 91, and he had moved in to live with her. He has 2 sisters Unique and one brother Anastacio in this local area as well. Relies support from his sister Nadege. He had been functionally capable of managing his own ADLs, however, would use scooters or a wheelchair if she was going to go any distance. 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 Spiritual: He is an affiliated however, is a strong believer in God and God's power to heal. Legal: Today he elected to have his sister Nadege serve as HCS. Nadege has been involved in his care and oversight and is in communication with the rest of the family. She agrees to serve and feels she would follow his wishes. Ethical issues impacting care: Important Contacts Nadege Damico, [facility], sister, or [phone] Prognosis Prognosis is fair in light of his significant dilated cardiomyopathy with CHF. EF 25%, AICD. He will likely discharge from this admission, however, he is high risk for recurrence of CHF exacerbation versus AL versus lethal arrhythmia Code Status: Full Code Plan Decision Maker: Nadege Damico, , - [phone] Code Status: Patient clearly indicates that he wishes to be a full CODE STATUS and would want CPR. He has no designated living will Family Discussion: Spoke with patient at length today again regarding CODE STATUS and explained the meaning of the terms. He was on nasal cannula today and it was easier to communicate with him. Also spoke to him about the nature of his heart disease with the recurrence of congestive heart failure and the cardiomyopathy which is not fixable. Discussed options of management, which included hospice/comfort care versus aggressive care. I think at this point at age 70, he is coming to understand that he is not going to live a long life. He was not able to provide any further guidance but rather wanted to think about it and talk about it with his family. He remains a full code with full aggressive measures. He does have a healthcare surrogatesister Nadege designated Symptoms: Dyspnea, pain, Palliative care phone number provided - will follow during hospital stay. Attestation To help prompt me to consider important information that might be impacting today's encounter and assessment, information from prior notes written by myself or my colleagues may have been "brought forward" into today's note. My signature on this note, however, is an attestation that I personally performed the exam, history, and/or decision-making noted today, and, unless otherwise indicated, the interactions with patient, family, and staff as well as the review of records all occurred today. I also attest that the listed assessment and stated plan reflect my best clinical judgment today based on the combination of historical information, prior notes, and today's exam/ interactions. When time spent is documented, it refers only to time spent today by the signer, or if indicated, combined time spent today by collaborating physician/nurse practitioner. Natalie Vargas Sep 05, 2016 14:30
[2016-09-05] MEDS: DOBUTamine PREMIX DRIP 250 ML IV SCH (16:44)
[2016-09-05] MEDS: PRAVASTATIN SOD 40 MG TAB PO SCH (21:26)
[2016-09-05] MEDS: LATANOPROST 0.005% OPHT SOLN 2.5 ML BTL RIGHT EYE SCH (21:27)
[2016-09-06] VITALS (22 sets, daily range): BP systolic 97–111; BP diastolic 48–56; PULSE 82–98; RESP 16–22; TEMP 98–98.9; O2SAT 91–98
[2016-09-06] MEDS: ACETAMINOPHEN 325 MG TAB PO PRN ×2 (01:46→17:21)
[2016-09-06] MEDS: DOBUTamine PREMIX DRIP 250 ML IV SCH (01:47)
[2016-09-06] MEDS: CHLORHEXIDINE GLUCONATE 2 % 1 PACK (2 CLOTHS) TOP SCH (04:00)
[2016-09-06] MEDS: RESP: ALBUTEROL 2.5 MG/IPRATROPIUM 0.5 MG NEB (SCH) INH ×4 (04:27→21:32)
[2016-09-06] MEDS: ISOSORBIDE MONONITRATE 30 MG TAB PO SCH (05:33)
[2016-09-06] MEDS: LEVOTHYROXINE SODIUM 50 MCG TAB PO SCH (05:33)
--- NOTE | 2016-09-06 06:09 | RADRPT ---
EXAM DATE/TIME: 09/06/2016 04:51 [facility] COMPARISON: CHEST SINGLE AP, September 03, 2016, 19:55. INDICATIONS : Shortness of breath. MEDICAL HISTORY : Congestive heart failure. Renal failure, chronic. Diabetes mellitus type 1. SURGICAL HISTORY : Pacemaker. CABG. ENCOUNTER: Subsequent ACUITY: 1 month PAIN SCORE: Non-responsive. LOCATION: chest FINDINGS: Improving basilar consolidation and effusions, now mild/small. Mild to moderate cardiomegaly is uncha nged. No pneumothorax. Patient has had previous median sternotomy and CABG. There is a cardiac pacer/defibrillator. CONCLUSION: Resolving failure, now mild. Scott Austin MD on September 06, 2016 at 6:07 Board Certified Radiologist. This report was verified electronically.
[2016-09-06] MEDS: FUROSEMIDE 40 MG TAB PO SCH (08:59)
[2016-09-06] MEDS: ASPIRIN EC 81 MG TABEC PO SCH (08:59)
[2016-09-06] MEDS: CARVEDILOL 6.25 MG TAB PO SCH ×2 (08:59→22:18)
[2016-09-06] MEDS: PANTOPRAZOLE SOD 20 MG DELAYED RELEASE TAB PO SCH (08:59)
[2016-09-06] MEDS: APIXABAN 5 MG TABLET PO SCH ×2 (08:59→22:19)
[2016-09-06] MEDS: INSULIN DETEMIR 100 UNITS/ML VIAL SQ SCH ×2 (09:00→22:19)
[2016-09-06] MEDS: MUPIROCIN 2% OINT 1 APPLIC/GM SYR EACH NARE SCH ×2 (09:00→21:00)
[2016-09-06] MEDS: SODIUM CHLORIDE 0.9% FLUSH 10 ML FLUSH IV FLUSH SCH ×2 (09:00→22:19)
[2016-09-06] MEDS: LACTULOSE SYRUP 20 GM/30 ML CUP PO SCH (09:00)
[2016-09-06] MEDS: FUROSEMIDE 20 MG/2 ML VIAL IV PUSH SCH ×2 (09:00→17:20)
[2016-09-06] MEDS: TIMOLOL MALEATE 0.5% OPHT SOLN 5 ML BTL RIGHT EYE SCH ×2 (09:01→22:20)
[2016-09-06] MEDS: BRIMONIDINE TARTRATE 0.2% OPHT SOLN 5 ML BTL RIGHT EYE SCH ×2 (09:01→22:20)
--- NOTE | 2016-09-06 10:52 | HHI.PR ---
Subjective Remarks in no acute distress. however on four liters of oxygen via N/C. denies chest pain. d/w the RN. Objective Vitals Vital Signs Date Time Temp Pulse Resp B/P Pulse Ox O2 Delivery O2 Flow Rate FiO2 09/06/16 09:49 94 Nasal Cannula 4.00 09/06/16 07:00 99 Nasal Cannula 4.00 09/06/16 06:00 88 09/06/16 04:00 98.0 93 22 110/53 98 09/06/16 04:00 93 09/06/16 02:46 20 09/06/16 02:00 94 09/06/16 00:00 98.5 90 22 108/54 96 09/06/16 00:00 90 09/05/16 22:00 96 09/05/16 20:25 97 Nasal Cannula 4.00 09/05/16 20:00 97 09/05/16 20:00 98.3 97 20 107/53 99 09/05/16 19:00 99 Nasal Cannula 4.00 09/05/16 18:00 90 09/05/16 16:00 98.7 88 18 98/49 97 09/05/16 16:00 88 09/05/16 14:00 90 09/05/16 12:00 98.7 97 27 114/65 90 09/05/16 12:00 97 I/O 09/05/16 09/05/16 09/05/16 09/06/16 09/06/16 09/06/16 07:00 15:00 23:00 07:00 15:00 23:00 Intake Total 150 ml 736 ml 658 ml 175 ml Output Total 1200 ml 800 ml 1150 ml 1350 ml Balance -1050 ml -64 ml -492 ml -1175 ml Intake Oral 30 ml 660 ml 600 ml 120 ml IV Total 120 ml 76 ml 58 ml 55 ml Output Urine Total 1200 ml 800 ml 1150 ml 1350 ml # Bowel Movements 0 2 1 0 Result Diagram: 09/05/16 0350 09/05/16 0350 Imaging Last Impressions Chest X-Ray 09/06/16 0600 Signed Impressions: Service Date/Time: Tuesday, September 06, 2016 04:51 - CONCLUSION: Resolving failure, now mild. Scott Austin MD Head CT 09/03/161942 Signed Impressions: Service Date/Time: Saturday, September 03, 2016 20:20 - CONCLUSION: No acute intracranial disease. Osbaldo Abebe MD Objective Remarks GENERAL: in no apparent distress. CARDIOVASCULAR: Regular rate and regular rhythm without murmurs, gallops, or rubs. RESPIRATORY: Clear to auscultation. Breath sounds equal bilaterally. No wheezes , rales, or rhonchi. GASTROINTESTINAL: Abdomen soft, non-tender, nondistended. Normal, active bowel sounds MUSCULOSKELETAL: Extremities without clubbing, cyanosis, or edema. NEURO: Alert & Oriented x4 to person, place, time, situation. Moves all ext x4 Medications and IVs Current Medications Sodium Chloride (NS Flush) 2 ml UNSCH PRN IVF FLUSH AFTER USING IV ACCESS; Start 09/03/16 at 19:45; Stop 09/03/16 at 22:20; Status DC Furosemide (Lasix Inj) 20 mg ONCE ONCE IV PUSH Last administered on 09/03/16 20:51; Start 09/03/16 at 20:15; Stop 09/03/16 at 20:16; Status DC Sodium Chloride (NS Flush) 2 ml UNSCH PRN IV FLUSH FLUSH AFTER USING IV ACCESS ; Start 09/03/16 at 22:00 Sodium Chloride (NS Flush) 2 ml BID IV FLUSH Last administered on 09/06/16 09: 00; Start 09/04/16 at 09:00 Naloxone HCl (Narcan Inj) 0.4 mg UNSCH PRN IV SEE LABEL COMMENTS; Start at 22:00 Furosemide 20 mg 20 mg BID@09,18 IV PUSH Last administered on 09/05/16 17:54; Start 09/04/16 at 09:00 Dobutamine HCl/ Dextrose (DOBUTamine PREMIX DRIP) 250 ml @ 7.358 mls/ hr Q24H IV Last administered on 09/06/16 01:47; Start 09/04/16 at 01:02; Stop at 06:00; Status DC Apixaban (Eliquis) 5 mg BID PO Last administered on 09/06/16 08:59; Start at 09:00 Aspirin (Ecotrin Ec) 81 mg DAILY PO Last administered on 09/06/16 08:59; Start 09/04/16 at 09:00 Carvedilol (Coreg) 6.25 mg BID PO Last administered on 09/06/16 08:59; Start 09/04/16 at 09:00 Furosemide (Lasix) 40 mg BID PO Last administered on 09/06/16 08:59; Start at 09:00 Insulin Detemir (Levemir Inj) 5 units Q12HR SQ Last administered on 09/06/16 09:00; Start 09/04/16 at 09:00 Ipratropium [place] (Atrovent Neb) 0.5 mg Q6HR NEB NEB Last administered on 03:01; Start 09/04/16 at 04:00 Isosorbide Mononitrate (Imdur) 30 mg DAILY@07 PO Last administered on 05:33; Start 09/04/16 at 07:00 Levothyroxine Sodium (Synthroid) 50 mcg DAILY@0600 PO Last administered on 09/06 05:33; Start 09/04/16 at 06:00 Mupirocin (Bactroban Nasal 2% Oint) 1 applic BID EACH NARE Last administered on 09/06/16 09:00; Start 09/04/16 at 09:00 Polyvinyl Alcohol/ Povidone (Refresh Classic 1.4-0.6% Pf Opth Soln) 1 drop TID PRN EACH EYE DRY EYE Last administered on 09/05/16 09:43; Start 09/04/16 at 01: 15 Non-Formulary Medication 1 drop Q12HR RIGHT EYE Glaucoma; Start 09/04/16 at 09: 00; Status UNV Patient Own Medication PT OWN MED: Suspens... BID RIGHT EYE ; Start 09/04/16 at 09:00; Status Hold Non-Formulary Medication ACHS SQ BSM; Start 09/04/16 at 07:00; Status UNV Pantoprazole Sodium (Protonix) 20 mg DAILY PO Last administered on 09/06/16 08 :59; Start 09/04/16 at 09:00 Pravastatin Sodium (Pravachol) 40 mg HS PO Last administered on 09/05/16 21:26 ; Start 09/04/16 at 21:00 Latanoprost (Xalatan 0.005% Opth Soln) 1 drop HS RIGHT EYE Last administered on 09/05/16 21:27; Start 09/04/16 at 21:00 Acetaminophen (Tylenol) 650 mg Q6H PRN PO PAIN 1-10 AND/OR FEVER >101F Last administered on 09/06/16 01:46; Start 09/04/16 at 01:15 Lactulose (Lactulose Liq) 30 ml DAILY PO ; Start 09/04/16 at 09:00 Albuterol/ Ipratropium (Duoneb Neb) 1 ampule Q6HR NEB INH Last administered on 09/06/16 09:48; Start 09/04/16 at 04:00 Miscellaneous Information 1 Q361D XX ; Start 09/04/16 at 01:15 Chlorhexidine Gluconate (Chlorhexidine 2% Cloth) 3 pack Taper DAILY@04 TOP Last administered on 09/06/16 04:00; Start 09/04/16 at 04:00; Stop 08/31/17 at 03:59 Chlorhexidine Gluconate (Chlorhexidine 2% Cloth) 3 pack UNSCH PRN TOP HYGIENIC CARE; Start 09/04/16 at 01:15 Brimonidine Tartrate (Alphagan 0.2% Opth Soln) 1 drop Q12HR RIGHT EYE Last administered on 09/06/16 09:01; Start 09/04/16 at 09:00 Timolol Maleate (Timoptic 0.5% Opth Soln) 1 drop Q12HR RIGHT EYE Last administered on 09/06/16 09:01; Start 09/04/16 at 09:00 Furosemide (Lasix Inj) 60 mg NOW ONCE IV PUSH Last administered on 09/04/16 05:45; Start 09/04/16 at 05:45; Stop 09/04/16 at 05:46; Status DC A/P Assessment and Plan A/P 1. Hypoxemic , hypercapnic Respiratory Failure due to acute on chronic systolic CHF- improved keep on oxygen to keep O2 sat > 90%- BiPaP as needed. continue lasix and coreg- no LEONEL-I for now due to low BP readings. 2.CAD- s/p CABG continue aspirin,eliquis,imdur, coreg and statin. 3. chronic renal insufficiency; will monitor for now. 4. Diabetes type 2; continue levemir and accu-check with SSI 5.COPD- keep on oxygen as needed to keep O2 sat > 90%- continue with neb treatment 6.questionable left eye vision change?- improved. CT head with no acute abnormality. palliative care following. DVT prophylaxis with eliquis. continue PT. Discharge Planning dc planning to SNF within the next two-three days if stable. Danielle Stovall MD Sep 06, 2016 10:52
[2016-09-06] MEDS ORDERED: RESP: ALBUTEROL 1.25 MG/3 ML NEB (PRN) NEB (11:00)
[2016-09-06] MEDS: LATANOPROST 0.005% OPHT SOLN 2.5 ML BTL RIGHT EYE SCH (22:18)
[2016-09-06] MEDS: PRAVASTATIN SOD 40 MG TAB PO SCH (22:18)
[2016-09-07] VITALS (26 sets, daily range): BP systolic 88–115; BP diastolic 60–73; PULSE 80–96; RESP 18–22; TEMP 97.8–98.7; O2SAT 90–99
[2016-09-07] MEDS ORDERED: diphenhydrAMINE HCL 25 MG CAP PO ONE (00:30)
[2016-09-07] MEDS ORDERED: DEXTROSE 50% IN WATER 50 ML VIAL(D50) IV PUSH PRN (00:30)
[2016-09-07] MEDS ORDERED: GLUCAGON 1 MG/ML VIAL OTHER PRN (00:30)
[2016-09-07] MEDS: CHLORHEXIDINE GLUCONATE 2 % 1 PACK (2 CLOTHS) TOP SCH (03:24)
[2016-09-07] MEDS: RESP: ALBUTEROL 2.5 MG/IPRATROPIUM 0.5 MG NEB (SCH) INH ×4 (04:14→22:21)
[2016-09-07] MEDS: LEVOTHYROXINE SODIUM 50 MCG TAB PO SCH (05:32)
[2016-09-07] MEDS: ISOSORBIDE MONONITRATE 30 MG TAB PO SCH (05:32)
--- NOTE | 2016-09-07 05:39 | PQ ---
Physician Query Response Document PATIENT: LOUIS PATRICIO : 1945 ADMIT DATE: 09/03/2016 9:49 PM DISCH DATE: RESPONDING PROVIDER #: [email or web address] QUERY TEXT: CHF Acuity and Type End Stage Congestive Heart Failure is documented in the Medical Record. Please document the ACUITY (i ncludes probable or suspected) Such as: Acuity: -- Acute -- Chronic -- Acute on chronic -- Other, please specify PLEASE CALL [facility] 2 EXT [phone] FOR ASSISTANCE The patient's Clinical Indicators include: per H Assessment and Plan 3. Dilated ischemic cardiomyopathy and end-stage systolic heart failure Overall impression: End-stage systolic heart failure. Critically ill and unstable due to pulmonary ed juan j Ischemic cardiomyopathy with ejection fraction of 25% on echocardiogram dated 08/03/2016 09/04/16 [id number] 09/03/16 CHEST X-RAY: CARDIOMEGALY AND PULMONARY EDEMA Query created by: Hina Cardozo on 09/04/2016 9:43 AM RESPONSE TEXT: Acute on chronic systolic heart failure Electronically signed by: Jake Bettencourt MD 09/07/2016 5:36 AM
[2016-09-07] MEDS: INSULIN ASPART SUPPLEMENTAL SCALE SQ SCH ×4 (07:00→21:00)
--- NOTE | 2016-09-07 08:16 | HHI.PR ---
Subjective Remarks In no acute distress. However on 5 liters of oxygen via N/C. Denies chest pain. D/w the RN. Wound care consulted yesterday for foot wound. + Nausea last night, resolved with zofran. Patient had trouble sleeping overnight, requesting medication for insomnia. Objective Vital Signs Date Time Temp Pulse Resp B/P Pulse Ox O2 Delivery O2 Flow Rate FiO2 09/07/16 07:00 83 09/07/16 06:00 84 09/07/16 05:00 86 09/07/16 04:00 84 09/07/16 03:00 88 09/07/16 03:00 98.1 85 22 107/66 98 09/07/16 02:00 82 09/07/16 01:00 80 09/07/16 00:00 84 09/06/16 23:00 84 22 97 09/06/16 23:00 86 09/06/16 22:00 88 09/06/16 21:33 97 Nasal Cannula 4.00 09/06/16 21:00 94 09/06/16 20:00 96 09/06/16 19:00 95 09/06/16 19:00 98.5 96 22 102/56 98 09/06/16 19:00 5 Nasal Cannula 09/06/16 18:05 88 09/06/16 17:10 91 09/06/16 16:02 94 09/06/16 15:17 95 Nasal Cannula 5.00 09/06/16 15:00 98 09/06/16 15:00 98.9 92 16 111/48 96 09/06/16 14:20 90 09/06/16 13:11 87 09/06/16 12:52 82 09/06/16 12:00 98.4 83 19 97/55 93 09/06/16 12:00 82 09/06/16 10:00 85 09/06/16 09:49 94 Nasal Cannula 4.00 I/O 09/06/16 09/06/16 09/06/16 09/07/16 09/07/16 09/07/16 07:00 15:00 23:00 07:00 15:00 23:00 Intake Total 175 ml 420 ml 480 ml Output Total 1350 ml 1150 ml 450 ml 1450 ml Balance -1175 ml -1150 ml -30 ml -970 ml Intake Oral 120 ml 420 ml 480 ml IV Total 55 ml Output Urine Total 1350 ml 1150 ml 450 ml 1450 ml # Bowel Movements 0 0 Result Diagram: 09/05/16 0350 09/05/16 0350 Imaging Last Impressions Chest X-Ray 09/06/16 0600 Signed Impressions: Service Date/Time: Tuesday, September 06, 2016 04:51 - CONCLUSION: Resolving failure, now mild. Scott Austin MD Head CT 09/03/16 1943 Signed Impressions: Service Date/Time: Saturday, September 03, 2016 20:20 - CONCLUSION: No acute intracranial disease. Osbaldo Abebe MD Objective Remarks GENERAL: in no apparent distress. CARDIOVASCULAR: Regular rate and regular rhythm without murmurs, gallops, or rubs. RESPIRATORY: Clear to auscultation. Breath sounds equal bilaterally. No wheezes , rales, or rhonchi. GASTROINTESTINAL: +BS. Abdomen soft, non-tender, nondistended. : campbell with 800 cc clear urine MUSCULOSKELETAL: Extremities without clubbing, cyanosis, or edema. NEURO: Alert & Oriented. Moves all ext x4 A/P Problem List: (1) Respiratory failure ICD Code: J96.90 (2) CAD (coronary artery disease) ICD Code: I25.10 (3) DM (diabetes mellitus) ICD Code: E11.9 (4) COPD (chronic obstructive pulmonary disease) ICD Code: J44.9 (5) Renal insufficiency ICD Code: N28.9 (6) S/P CABG (coronary artery bypass graft) ICD Code: Z95.1 Assessment and Plan A/P 1. Hypoxemic, hypercapnic Respiratory Failure due to acute on chronic systolic CHF- improved keep on oxygen to keep O2 sat > 90%- BiPaP as needed. continue lasix and coreg- no LEONEL-I for now due to low BP readings. D/c Campbell 2.CAD- s/p CABG continue aspirin,eliquis,imdur, coreg and statin. 3. chronic renal insufficiency; will monitor for now. 4. Diabetes type 2; continue levemir and accu-check with SSI 5.COPD- keep on oxygen as needed to keep O2 sat > 90%- continue with neb treatment 6.questionable left eye vision change- improved. CT head with no acute abnormality. 7. Insomnia: started restoril 15mg qHS PRN 8. Right heel wound: consulted wound care nurse Palliative care following. DVT prophylaxis with eliquis. Continue PT. Discharge Planning dc planning to SNF within the next 2-3 days if stable. Марина Hong MD Sep 07, 2016 08:16
[2016-09-07] MEDS: INSULIN DETEMIR 100 UNITS/ML VIAL SQ SCH ×2 (08:46→22:01)
[2016-09-07] MEDS: BRIMONIDINE TARTRATE 0.2% OPHT SOLN 5 ML BTL RIGHT EYE SCH ×2 (08:47→22:01)
[2016-09-07] MEDS: TIMOLOL MALEATE 0.5% OPHT SOLN 5 ML BTL RIGHT EYE SCH ×2 (08:47→22:01)
[2016-09-07] MEDS: LACTULOSE SYRUP 20 GM/30 ML CUP PO SCH (08:47)
[2016-09-07] MEDS: PANTOPRAZOLE SOD 20 MG DELAYED RELEASE TAB PO SCH (08:48)
[2016-09-07] MEDS: ASPIRIN EC 81 MG TABEC PO SCH (08:48)
[2016-09-07] MEDS: FUROSEMIDE 20 MG/2 ML VIAL IV PUSH SCH ×2 (08:48→16:51)
[2016-09-07] MEDS: CARVEDILOL 6.25 MG TAB PO SCH ×2 (08:48→21:59)
[2016-09-07] MEDS: MUPIROCIN 2% OINT 1 APPLIC/GM SYR EACH NARE SCH ×2 (08:48→21:59)
[2016-09-07] MEDS: APIXABAN 5 MG TABLET PO SCH ×2 (08:48→22:00)
[2016-09-07] MEDS: SODIUM CHLORIDE 0.9% FLUSH 10 ML FLUSH IV FLUSH SCH ×2 (08:49→22:02)
[2016-09-07 09:39] LABS: BICARBONATE 43.3 MEQ/L (21.0-32.0)
[2016-09-07] MEDS: ONDANSETRON HCL 4 MG/2 ML VIAL IV PUSH PRN (21:59)
[2016-09-07] MEDS: PRAVASTATIN SOD 40 MG TAB PO SCH (21:59)
[2016-09-07] MEDS: TEMAZEPAM 15 MG CAP PO PRN (22:00)
[2016-09-07] MEDS: ACETAMINOPHEN 325 MG TAB PO PRN (22:00)
[2016-09-07] MEDS: LATANOPROST 0.005% OPHT SOLN 2.5 ML BTL RIGHT EYE SCH (22:01)
[2016-09-08] VITALS (27 sets, daily range): BP systolic 103–120; BP diastolic 65–81; PULSE 80–108; RESP 16–18; TEMP 97.8–98.5; O2SAT 95–100
[2016-09-08] MEDS: RESP: ALBUTEROL 2.5 MG/IPRATROPIUM 0.5 MG NEB (SCH) INH (03:43)
[2016-09-08] MEDS: CHLORHEXIDINE GLUCONATE 2 % 1 PACK (2 CLOTHS) TOP SCH (04:00)
[2016-09-08] MEDS: LEVOTHYROXINE SODIUM 50 MCG TAB PO SCH (05:39)
[2016-09-08] MEDS: ISOSORBIDE MONONITRATE 30 MG TAB PO SCH (05:39)
[2016-09-08] MEDS: INSULIN ASPART SUPPLEMENTAL SCALE SQ SCH ×4 (06:44→21:00)
--- NOTE | 2016-09-08 07:29 | HHI.PR ---
Subjective Remarks In no acute distress. On 3 liters of oxygen via N/C. Asking if he can go home with family. PT recommended SNF. D/w the RN. No BM in 2 days, had a bloody smear last night. Objective Vital Signs Date Time Temp Pulse Resp B/P Pulse Ox O2 Delivery O2 Flow Rate FiO2 09/08/16 06:00 88 09/08/16 05:00 84 09/08/16 04:00 80 09/08/16 03:43 99 Nasal Cannula 4.00 09/08/16 03:00 98.4 89 18 120/69 100 09/08/16 03:00 83 09/08/16 02:00 84 09/08/16 01:00 84 09/08/16 00:00 90 09/07/16 23:00 93 09/07/16 23:00 97.8 88 18 88/63 99 09/07/16 22:21 97 Nasal Cannula 4.00 09/07/16 22:00 92 09/07/16 21:00 90 09/07/16 20:00 96 09/07/16 19:00 98.6 95 22 115/64 98 09/07/16 19:00 94 09/07/16 19:00 98 Nasal Cannula 5.00 09/07/16 18:09 96 09/07/16 17:00 85 09/07/16 16:00 84 09/07/16 16:00 98.2 90 18 113/73 90 09/07/16 15:04 94 09/07/16 14:00 91 09/07/16 13:00 96 09/07/16 12:00 84 09/07/16 11:00 98.7 85 18 112/68 95 09/07/16 11:00 83 09/07/16 10:00 86 09/07/16 09:19 96 Nasal Cannula 5.00 09/07/16 09:00 92 09/07/16 08:00 97 Nasal Cannula 5.00 09/07/16 08:00 98.4 87 18 98/60 97 09/07/16 08:00 90 I/O 09/07/16 09/07/16 09/07/16 09/08/16 09/08/16 09/08/16 07:00 15:00 23:00 07:00 15:00 23:00 Intake Total 480 ml 720 ml 480 ml Output Total 1450 ml 1175 ml 800 ml Balance -970 ml -455 ml -320 ml Intake Oral 480 ml 720 ml 480 ml Output Urine Total 1450 ml 1175 ml 800 ml # Bowel Movements 0 Result Diagram: 09/05/16 0350 09/07/16 0800 Imaging Last Impressions Chest X-Ray 09/06/16 0600 Signed Impressions: Service Date/Time: Tuesday, September 06, 2016 04:51 - CONCLUSION: Resolving failure, now mild. Scott Austin MD Head CT 09/03/16 1943 Signed Impressions: Service Date/Time: Saturday, September 03, 2016 20:20 - CONCLUSION: No acute intracranial disease. Osbaldo Abebe MD Objective Remarks GENERAL: In no apparent distress. CARDIOVASCULAR: Regular rate and regular rhythm without murmurs, gallops, or rubs. RESPIRATORY: Clear to auscultation. Breath sounds equal bilaterally. No wheezes , rales, or rhonchi. GASTROINTESTINAL: Abdomen soft, non-tender, nondistended. MUSCULOSKELETAL: Extremities without clubbing, cyanosis, or edema. NEURO: Alert & Oriented. Moves all ext x4 A/P Problem List: (1) Respiratory failure ICD Code: J96.90 (2) CAD (coronary artery disease) ICD Code: I25.10 (3) DM (diabetes mellitus) ICD Code: E11.9 (4) COPD (chronic obstructive pulmonary disease) ICD Code: J44.9 (5) Renal insufficiency ICD Code: N28.9 (6) S/P CABG (coronary artery bypass graft) ICD Code: Z95.1 Assessment and Plan A/P 1. Hypoxemic, hypercapnic Respiratory Failure due to acute on chronic systolic CHF- improved keep on oxygen to keep O2 sat > 90%- BiPaP as needed. continue lasix and coreg- no LEONEL-I for now due to low BP readings. D/c'd Marisol 2.CAD- s/p CABG continue aspirin,eliquis,imdur, coreg and statin. 3. chronic renal insufficiency; will monitor for now. 4. Diabetes type 2; continue levemir and accu-check with SSI 5.COPD- keep on oxygen as needed to keep O2 sat 90%-92% continue with neb treatment 6.questionable left eye vision change- improved. CT head with no acute abnormality. 7. Insomnia: Restoril 15mg qHS PRN 8. Right heel wound: Consulted wound care nurse 9. Constipation: Lactulose 30mL daily, received 1 dose 09/07. Add enema PRN & connor-colace jeb. Bloody smear stool: Hemoccult ordered. Palliative care following. DVT prophylaxis with eliquis. Continue PT. Discharge Planning dc planning to SNF within the next 2-3 days if stable. Марина Hong MD Sep 08, 2016 07:29 Марина Hong MD Sep 08, 2016 07:29
[2016-09-08] MEDS ORDERED: SOD PHOSPHATE/SOD BIPHOSPHATE (ADULT) ENEMA 133ML PR PRN (09:00)
[2016-09-08] MEDS: MUPIROCIN 2% OINT 1 APPLIC/GM SYR EACH NARE SCH ×2 (09:17→22:44)
[2016-09-08] MEDS: CARVEDILOL 6.25 MG TAB PO SCH ×2 (09:17→22:43)
[2016-09-08] MEDS: INSULIN DETEMIR 100 UNITS/ML VIAL SQ SCH ×2 (09:17→22:44)
[2016-09-08] MEDS: PANTOPRAZOLE SOD 20 MG DELAYED RELEASE TAB PO SCH (09:17)
[2016-09-08] MEDS: ASPIRIN EC 81 MG TABEC PO SCH (09:17)
[2016-09-08] MEDS: DOCUSATE SODIUM 50 MG/SENNA 8.6 MG TAB PO SCH ×2 (09:17→22:44)
[2016-09-08] MEDS: APIXABAN 5 MG TABLET PO SCH ×2 (09:17→22:43)
[2016-09-08] MEDS: LACTULOSE SYRUP 20 GM/30 ML CUP PO SCH (09:17)
[2016-09-08] MEDS: TIMOLOL MALEATE 0.5% OPHT SOLN 5 ML BTL RIGHT EYE SCH ×2 (09:18→22:45)
[2016-09-08] MEDS: BRIMONIDINE TARTRATE 0.2% OPHT SOLN 5 ML BTL RIGHT EYE SCH ×2 (09:18→22:44)
[2016-09-08] MEDS: FUROSEMIDE 20 MG/2 ML VIAL IV PUSH SCH ×2 (09:18→16:57)
[2016-09-08] MEDS: SODIUM CHLORIDE 0.9% FLUSH 10 ML FLUSH IV FLUSH SCH ×2 (09:19→22:45)
--- NOTE | 2016-09-08 14:15 | PD.CONS ---
HPI History of Present Illness This is a 70 year old male who was transferred from [facility] due to vision changes in his L eye, which apparently has resolved per patient. 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 He is not a good historian. GI was consulted for bloody stool with history of GI bleed. However, patient denies that he has ever had blood per rectum in past. Hemoccult was ordered today, no results at this time. He states that he had an episode of lower abdominal sharp pain yesterday, but this has resolved. Denies abdominal pain today. No N/V. Patient states that he has never had a colonoscopy/EGD. Denies family history of colon cancer. Noted in chart that patient did have a EGD (08/15/16) due to melena and anemia. EGD-->LA Class B esophagitis, gastritis in gastric antrum, old blood in stomach visualized. EGD/Colonoscopy (08/26/16)----> Gastritis antrum, irregular z line, duodenal normal, retroflexed views revealed a hiatal hernia, poor prep, 7mm polyp descending, complete removal, diverticulosis in sigmoid and descending, retroflexed views revealed internal hemorrhoids, small internal hemorrhoids, external hemorrhoids. Path benign, adenomatous polyp descending colon. DW RN who states bright red blood (liquid) was present in bed hoover today. ( Debra Guzmán) PFSH Past Medical History -Congestive heart failure -Cardiomyopathy s/p AICD -CAD, s/p CABG -PAD -DM -CKD, stage 3 -HTN -HLD -Hypothyroid -Glaucoma. Past Surgical History -Cataract surgery -Toe amputation -CABG (Debra Guzmán) Coded Allergies: Iodinated Contrast Media (Verified Allergy, Unknown, 09/03/16) Sulfa (Verified Allergy, Unknown, 09/03/16) *MDRO Multi-Drug Resistant Organism (Verified Adverse Reaction, Unknown, ) MRSA PCR Screen POSITIVE - 08/25/2016 & 09/04/2016 Medications Current Medications Medications (Trade) Dose Ordered Sig/Jacek Route PRN Reason Start Time Stop Time Status Last Admin Dose Admin Sodium Chloride (NS Flush) 2 ml UNSCH PRN IV FLUSH FLUSH AFTER USING IV ACCESS 09/03/16 22:00 Sodium Chloride (NS Flush) 2 ml BID IV FLUSH 09/04/16 09:00 09/08/16 09:19 Naloxone HCl (Narcan Inj) 0.4 mg UNSCH PRN IV SEE LABEL COMMENTS 09/03/16 22:00 Furosemide (Lasix Inj) 20 mg BID@09,18 IV PUSH 09/04/16 09:00 09/08/16 09:18 Apixaban (Eliquis) 5 mg BID PO 09/04/16 09:00 09/08/16 09:17 Aspirin (Ecotrin Ec) 81 mg DAILY PO 09/04/16 09:00 09/08/16 09:17 Carvedilol (Coreg) 6.25 mg BID PO 09/04/16 09:00 09/08/16 09:17 Furosemide (Lasix) 40 mg BID PO 09/04/16 09:00 Hold 09/06/16 08:59 Insulin Detemir (Levemir Inj) 5 units Q12HR SQ 09/04/16 09:00 09/08/16 09:17 Isosorbide Mononitrate (Imdur) 30 mg DAILY@07 PO 09/04/16 07:00 09/08/16 05:39 Levothyroxine Sodium (Synthroid) 50 mcg DAILY@0600 PO 09/04/16 06:00 09/08/16 05:39 Mupirocin (Bactroban Nasal 2% Oint) 1 applic BID EACH NARE 09/04/16 09:00 09/08/16 09:17 Polyvinyl Alcohol/ Povidone (Refresh Classic 1.4-0.6% Pf Opth Soln) 1 drop TID PRN EACH EYE DRY EYE 09/04/16 01:15 09/05/16 09:43 Patient Own Medication PT OWN MED: Suspens... BID RIGHT EYE 09/04/16 09:00 Hold Pantoprazole Sodium (Protonix) 20 mg DAILY PO 09/04/16 09:00 09/08/16 09:17 Pravastatin Sodium (Pravachol) 40 mg HS PO 09/04/16 21:00 09/07/16 21:59 Latanoprost (Xalatan 0.005% Opth Soln) 1 drop HS RIGHT EYE 09/04/16 21:00 09/07/16 22:01 Acetaminophen (Tylenol) 650 mg Q6H PRN PO PAIN 1-10 AND/OR FEVER >101F 09/04/16 01:15 09/07/16 22:00 Lactulose (Lactulose Liq) 30 ml DAILY PO 09/04/16 09:00 09/08/16 09:17 Miscellaneous Information 1 Q361D XX 09/04/16 01:15 Chlorhexidine Gluconate (Chlorhexidine 2% Cloth) 3 pack Taper DAILY@04 TOP 09/04/16 04:00 08/31/17 03:59 09/06/16 04:00 Chlorhexidine Gluconate (Chlorhexidine 2% Cloth) 3 pack UNSCH PRN TOP HYGIENIC CARE 09/04/16 01:15 Brimonidine Tartrate (Alphagan 0.2% Opth Soln) 1 drop Q12HR RIGHT EYE 09/04/16 09:00 09/08/16 09:18 Timolol Maleate (Timoptic 0.5% Opth Soln) 1 drop Q12HR RIGHT EYE 09/04/16 09:00 09/08/16 09:18 Dextrose (D50w (Vial) Inj) 25 ml UNSCH PRN IV PUSH HYPOGLYCEMIA-SEE COMMENTS 09/07/16 00:30 Glucagon (Glucagon Inj) 1 mg UNSCH PRN OTHER HYPOGLYCEMIA-SEE COMMENTS 09/07/16 00:30 Ondansetron HCl (Zofran Inj) 4 mg Q6HR PRN IV PUSH NAUSEA OR VOMITING 09/07/16 00:30 09/07/16 21:59 Temazepam (Restoril) 15 mg HS PRN PO INSOMNIA 09/07/16 12:00 09/07/16 22:00 Senna/Docusate Sodium (Samara-Colace) 1 tab BID PO 09/08/16 09:00 09/08/16 09:17 Sodium Biphosphate/ Sodium Phosphate (Fleets Enema (Adult)) 133 ml ONCE PRN NM CONSTIPATION 09/08/16 09:00 09/09/16 08:59 Family History Patient states no family history of colon cancer Social History ETOH: Denies Tobacco: Denies, quit 40 years ago Illicit Drugs: Denies (Debra Guzmán) Review of Systems Constitutional: DENIES: Diaphoretic episodes, Fatigue, Fever, Weight gain, Weight loss, Chills, Dizziness, Change in appetite, Night Sweats Endocrine: DENIES: Polydipsia, Polyuria Eyes: DENIES: Blurred vision, Photosensitivity, Double Vision Ears, nose, mouth, throat: DENIES: Hearing loss, Vertigo, Oral lesions, Throat pain, Hoarseness Respiratory: DENIES: Cough, Wheezing, Hemoptysis, Sputum production, Shortness of breath Cardiovascular: DENIES: Chest pain, Palpitations, Syncope, Lower Extremity Edema, Orthopnea, Claudication Gastrointestinal: DENIES: Abdominal pain, Black stools, Bloody stools, Constipation, Diarrhea, Nausea, Vomiting, Difficulty Swallowing, Anorexia, Odynophagia, Swelling of Abdomen, Heartburn, Hematemesis Genitourinary: DENIES: Urinary frequency, Urinary incontinence, Urgency, Hematuria, Dysuria, Nocturia Musculoskeletal: DENIES: Joint pain, Muscle aches, Stiffness, Joint Swelling, Back pain, Neck pain Integumentary: DENIES: Abnormal pigmentation, Nail changes, Pruritus, Rash, Jaundice Hematologic/lymphatic: DENIES: Bruising, Lymphadenopathy Immunologic/allergic: DENIES: Eczema, Urticaria Neurologic: DENIES: Abnormal gait, Headache, Localized weakness, Paresthesias Psychiatric: DENIES: Anxiety, Confusion, Mood changes, Depression, Agitation, Suicidal Ideation (Debra Guzmán) GI Exam Vitals I&O Vital Signs Date Time Temp Pulse Resp B/P Pulse Ox O2 Delivery O2 Flow Rate FiO2 09/08/16 11:30 98.3 93 18 111/65 97 09/08/16 11:00 92 09/08/16 10:00 94 09/08/16 09:00 108 09/08/16 08:56 98 Nasal Cannula 4.00 09/08/16 08:07 100 Nasal Cannula 3.00 Humidified 09/08/16 08:00 88 09/08/16 08:00 98.2 90 18 119/81 100 09/08/16 07:00 91 09/08/16 06:00 88 09/08/16 05:00 84 09/08/16 04:00 80 09/08/16 03:43 99 Nasal Cannula 4.00 09/08/16 03:00 98.4 89 18 120/69 100 09/08/16 03:00 83 09/08/16 02:00 84 09/08/16 01:00 84 09/08/16 00:00 90 09/07/16 23:00 93 09/07/16 23:00 97.8 88 18 88/63 99 09/07/16 22:21 97 Nasal Cannula 4.00 09/07/16 22:00 92 09/07/16 21:00 90 09/07/16 20:00 96 09/07/16 19:00 98.6 95 22 115/64 98 09/07/16 19:00 94 09/07/16 19:00 98 Nasal Cannula 5.00 09/07/16 18:09 96 09/07/16 17:00 85 09/07/16 16:00 84 09/07/16 16:00 98.2 90 18 113/73 90 09/07/16 15:04 94 09/07/16 14:00 91 I/O 09/07/16 09/07/16 09/07/16 09/08/16 09/08/16 09/08/16 07:00 15:00 23:00 07:00 15:00 23:00 Intake Total 480 ml 720 ml 480 ml Output Total 1450 ml 1175 ml 800 ml Balance -970 ml -455 ml -320 ml Intake Oral 480 ml 720 ml 480 ml Output Urine Total 1450 ml 1175 ml 800 ml # Bowel Movements 0 Imaging Last Impressions Chest X-Ray 09/06/16 0600 Signed Impressions: Service Date/Time: Tuesday, September 06, 2016 04:51 - CONCLUSION: Resolving failure, now mild. Scott Austin MD Head CT 09/03/16 194 Signed Impressions: Service Date/Time: Saturday, September 03, 2016 20:20 - CONCLUSION: No acute intracranial disease. Osbaldo Abebe MD Laboratory Date/Time Procedure Status Source Growth 09/04/16 09:45 Urine Culture - Final Complete Urine Catheterized Urine Sena Tropicalis 09/03/16 20:05 Aerobic Blood Culture - Final Complete Blood Peripheral NO GROWTH IN 5 DAYS 09/03/16 20:05 Anaerobic Blood Culture - Final Complete Blood Peripheral NO GROWTH IN 5 DAYS Physical Examination HEENT: Blind right eye CHEST: CTA CARDIAC: RRR ABDOMEN: Obese, soft, nondistended, nontender; no hepatosplenomegaly; bowel sounds are present EXTREMITIES: No clubbing, cyanosis, or edema. SKIN: Normal; no rash; no jaundice. VIDEOGRAPHER: Mild confusion noted. (Debra Guzmán) Assessment and Plan Plan ASSESSMENT: GI bleed, had episode of bright red blood per rectum. Has history of recent GI bleed 08/13/16 while at [place]. Hemoccult was ordered, no results at this time. EGD (08/15/16) due to melena and anemia. EGD-->LA Class B esophagitis, gastritis in gastric antrum, old blood in stomach visualized. EGD/Colonoscopy ()--> Gastritis antrum, irregular z line, duodenal normal, retroflexed views revealed a hiatal hernia, poor prep, 7mm polyp descending, complete removal, diverticulosis in sigmoid and descending, retroflexed views revealed internal hemorrhoids, small internal hemorrhoids, external hemorrhoids. Path benign, adenomatous polyp descending colon. H/H stable, 10.2/ 31.1 PLAN: - Await Hemoccult results. - H/H stable - Plan for repeat Colonoscopy on Friday -Further recommendations to follow based on results of above. Patient seen and examined by Dr. King and myself and this note is written on his behalf. (Debra Guzmán) Physician Comments Patient seen and examined Agree with above Continue with current supportive care Monitor labs Most likely this bleeding is from his hemorrhoids At this point we'll hold off on endoscopy unless there is a recurrences at which time we'll need to stop anticoagulation and potentially plan for a sigmoidoscopy or a colonoscopy (Richard King MD) Debra Guzmán Sep 08, 2016 14:15 Richard King MD Sep 08, 2016 21:47
[2016-09-08] MEDS: ACETAMINOPHEN 325 MG TAB PO PRN (16:58)
[2016-09-08] MEDS: PRAVASTATIN SOD 40 MG TAB PO SCH (22:43)
[2016-09-08] MEDS: LATANOPROST 0.005% OPHT SOLN 2.5 ML BTL RIGHT EYE SCH (22:45)
[2016-09-09] VITALS (27 sets, daily range): BP systolic 99–118; BP diastolic 54–78; PULSE 80–98; RESP 16–20; TEMP 97.7–98.5; O2SAT 95–100
[2016-09-09] MEDS: TEMAZEPAM 15 MG CAP PO PRN (00:19)
[2016-09-09] MEDS: CHLORHEXIDINE GLUCONATE 2 % 1 PACK (2 CLOTHS) TOP SCH (04:00)
[2016-09-09] MEDS: LEVOTHYROXINE SODIUM 50 MCG TAB PO SCH (06:34)
[2016-09-09] MEDS: ISOSORBIDE MONONITRATE 30 MG TAB PO SCH (06:34)
[2016-09-09] MEDS: ACETAMINOPHEN 325 MG TAB PO PRN ×3 (06:34→20:48)
[2016-09-09] MEDS: INSULIN ASPART SUPPLEMENTAL SCALE SQ SCH ×4 (06:35→20:48)
[2016-09-09 07:02] LABS: BLOOD UREA NITROGEN 26 MG/DL (7-18); CHLORIDE 84 MEQ/L (98-107); POTASSIUM 3.7 MEQ/L (3.5-5.1); SODIUM (NA) 135 MEQ/L (136-145)
[2016-09-09 07:05] LABS: AUTOMATED NEUTROPHIL # 5.2 TH/MM3 (1.8-7.7); BASOPHIL # 0.1 TH/MM3 (0-0.2); BASOPHIL % 1.1 % (0.0-2.0); EOSINOPHIL # 0.5 TH/MM3 (0-0.4); EOSINOPHIL % 5.8 % (0.0-4.0); HEMATOCRIT 32.1 % (39.0-51.0); HEMO FLAGS DIFF FINAL; LYMPH % 15.9 % (9.0-44.0); LYMPHOCYTE # 1.2 TH/MM3 (1.0-4.8); MEAN CELL VOLUME 95.1 FL (80.0-100.0); MEAN CORPUSCULAR HEMOGLOBIN 29.7 PG (27.0-34.0); MEAN CORPUSCULAR HGB CONC 31.2 % (32.0-36.0); NEUT % 66.2 % (16.0-70.0); PLATELET COUNT 186 TH/MM3 (150-450); RED BLOOD COUNT 3.37 MIL/MM3 (4.50-5.90); WHITE BLOOD COUNT 7.8 TH/MM3 (4.0-11.0)
[2016-09-09 07:12] LABS: ANION GAP 6 MEQ/L (5-15); BICARBONATE GREATER THAN 45.0 MEQ/L (21.0-32.0)
[2016-09-09] MEDS: BRIMONIDINE TARTRATE 0.2% OPHT SOLN 5 ML BTL RIGHT EYE SCH ×2 (09:00→20:49)
[2016-09-09] MEDS: SODIUM CHLORIDE 0.9% FLUSH 10 ML FLUSH IV FLUSH SCH ×2 (09:00→20:40)
[2016-09-09] MEDS: TIMOLOL MALEATE 0.5% OPHT SOLN 5 ML BTL RIGHT EYE SCH ×2 (09:00→20:49)
[2016-09-09] MEDS: INSULIN DETEMIR 100 UNITS/ML VIAL SQ SCH ×2 (09:00→20:48)
[2016-09-09] MEDS: ASPIRIN EC 81 MG TABEC PO SCH (09:37)
[2016-09-09] MEDS: APIXABAN 5 MG TABLET PO SCH ×2 (09:37→20:39)
[2016-09-09] MEDS: CARVEDILOL 6.25 MG TAB PO SCH ×2 (09:37→20:40)
[2016-09-09] MEDS: LACTULOSE SYRUP 20 GM/30 ML CUP PO SCH (09:37)
[2016-09-09] MEDS: DOCUSATE SODIUM 50 MG/SENNA 8.6 MG TAB PO SCH ×2 (09:37→20:40)
[2016-09-09] MEDS: PANTOPRAZOLE SOD 20 MG DELAYED RELEASE TAB PO SCH (09:37)
[2016-09-09] MEDS: MUPIROCIN 2% OINT 1 APPLIC/GM SYR EACH NARE SCH ×2 (09:37→20:40)
[2016-09-09] MEDS: FUROSEMIDE 20 MG/2 ML VIAL IV PUSH SCH ×2 (09:38→16:50)
--- NOTE | 2016-09-09 11:26 | HHI.PR ---
Subjective Remarks Patient reports he is feeling okay. No more episodes of bloody smear. Reports he hasn't had a bowel movement in 3 days. No abdominal pain, nausea or vomiting. He denies any shortness of breath. Objective Vitals Vital Signs Date Time Temp Pulse Resp B/P Pulse Ox O2 Delivery O2 Flow Rate FiO2 09/09/16 09:47 18 09/09/16 07:43 99 Nasal Cannula 5.00 09/09/16 06:00 84 09/09/16 05:00 84 09/09/16 04:00 86 09/09/16 03:00 87 16 110/77 99 09/09/16 03:00 86 09/09/16 02:00 84 09/09/16 01:00 80 09/09/16 00:00 86 09/08/16 23:00 96 09/08/16 23:00 97.8 87 16 103/69 95 09/08/16 22:00 88 09/08/16 21:00 84 09/08/16 20:00 88 09/08/16 19:00 91 09/08/16 19:00 98 Nasal Cannula 5.00 09/08/16 19:00 98.5 91 16 105/66 98 09/08/16 18:00 88 09/08/16 17:00 88 09/08/16 16:00 92 09/08/16 15:00 98.2 91 18 109/66 96 09/08/16 15:00 91 09/08/16 14:00 92 09/08/16 13:00 94 09/08/16 12:00 96 09/08/16 11:30 98.3 93 18 111/65 97 I/O 09/08/16 09/08/16 09/08/16 09/09/16 09/09/16 09/09/16 07:00 15:00 23:00 07:00 15:00 23:00 Intake Total 480 ml 720 ml 480 ml Output Total 800 ml 475 ml 580 ml Balance -320 ml 245 ml -100 ml Intake Oral 480 ml 720 ml 480 ml Output Urine Total 800 ml 475 ml 580 ml # Bowel Movements 0 Result Diagram: 09/09/16 0548 09/09/16 0548 Imaging Last Impressions Chest X-Ray 09/06/16 0600 Signed Impressions: Service Date/Time: Tuesday, September 06, 2016 04:51 - CONCLUSION: Resolving failure, now mild. Scott Austin MD Head CT 09/03/161942 Signed Impressions: Service Date/Time: Saturday, September 03, 2016 20:20 - CONCLUSION: No acute intracranial disease. Osbaldo Abebe MD Objective Remarks GENERAL: Elderly male in no apparent distress. CARDIOVASCULAR: Normal rate and regular rhythm without murmurs, gallops, or rubs. RESPIRATORY: Good respiratory efforts. Breath sounds equal and clear to auscultation bilaterally. GASTROINTESTINAL: Abdomen soft, non-tender, non-distended. Normal active bowel sounds MUSCULOSKELETAL: Extremities without cyanosis, or edema. NEURO: Alert & Oriented x4 to person, place, time, situation. Moves all ext x4 PSYCH: Appropriate mood and affect. A/P Assessment and Plan 70-year-old male with Hypoxemic, hypercapnic Respiratory Failure due to acute on chronic systolic CHF - improved keep on oxygen to keep O2 sat >89- 95%- BiPaP as needed. Avoid too much oxygen. He is still hypercapnic continue lasix and coreg- no LEONEL-I for now due to low BP readings. D/c'd Damon Switch to oral Lasix CAD- s/p CABG continue aspirin,eliquis,imdur, coreg and statin. chronic renal insufficiency; stable. Will monitor for now. Diabetes type 2; continue levemir and accu-check with SSI COPD- keep on oxygen as needed to keep O2 sat 90%-92% continue with neb treatment questionable left eye vision change- improved. CT head with no acute abnormality. Outpatient follow-up is advised. Insomnia: Restoril 15mg qHS PRN Right heel wound: Consulted wound care nurse. Constipation: Lactulose 30mL daily, received 1 dose 09/07. Add enema PRN & connor- colace jeb. GI following. Palliative care following. DVT prophylaxis with eliquis. Continue PT. Discharge Planning If patient continues to improve, expect discharge in 1-2 days. Stephanie Miller MD September 09, 2016 11:26
--- NOTE | 2016-09-09 12:28 | HHI.GIFU ---
Subjective Remarks Pt resting comfortably in bed. Says he has not had a BM in 3 days. Says he has not seen any bleeding but his nurse told him there was blood in bedpan yesterday after he tried to have a BM. No n/v, pain. (Keena Madsen) Objective Vitals I&O Vital Signs Date Time Temp Pulse Resp B/P Pulse Ox O2 Delivery O2 Flow Rate FiO2 09/09/16 09:47 18 09/09/16 07:43 99 Nasal Cannula 5.00 09/09/16 06:00 84 09/09/16 05:00 84 09/09/16 04:00 86 09/09/16 03:00 87 16 110/77 99 09/09/16 03:00 86 09/09/16 02:00 84 09/09/16 01:00 80 09/09/16 00:00 86 09/08/16 23:00 96 09/08/16 23:00 97.8 87 16 103/69 95 09/08/16 22:00 88 09/08/16 21:00 84 09/08/16 20:00 88 09/08/16 19:00 91 09/08/16 19:00 98 Nasal Cannula 5.00 09/08/16 19:00 98.5 91 16 105/66 98 09/08/16 18:00 88 09/08/16 17:00 88 09/08/16 16:00 92 09/08/16 15:00 98.2 91 18 109/66 96 09/08/16 15:00 91 09/08/16 14:00 92 09/08/16 13:00 94 I/O 09/08/16 09/08/16 09/08/16 09/09/16 09/09/16 09/09/16 07:00 15:00 23:00 07:00 15:00 23:00 Intake Total 480 ml 720 ml 480 ml Output Total 800 ml 475 ml 580 ml Balance -320 ml 245 ml -100 ml Intake Oral 480 ml 720 ml 480 ml Output Urine Total 800 ml 475 ml 580 ml # Bowel Movements 0 Laboratory Laboratory Tests Test 09/09/16 05:48 White Blood Count 7.8 Red Blood Count 3.37 Hemoglobin 10.0 Hematocrit 32.1 Mean Corpuscular Volume 95.1 Mean Corpuscular Hemoglobin 29.7 Mean Corpuscular Hemoglobin 31.2 Concent Red Cell Distribution Width 17.0 Platelet Count 186 Mean Platelet Volume 8.8 Neutrophils (%) (Auto) 66.2 Lymphocytes (%) (Auto) 15.9 Monocytes (%) (Auto) 11.0 Eosinophils (%) (Auto) 5.8 Basophils (%) (Auto) 1.1 Neutrophils # (Auto) 5.2 Lymphocytes # (Auto) 1.2 Monocytes # (Auto) 0.9 Eosinophils # (Auto) 0.5 Basophils # (Auto) 0.1 CBC Comment DIFF FINAL Differential Comment Sodium Level 135 Potassium Level 3.7 Chloride Level 84 Carbon Dioxide Level GREATER THAN 45.0 Anion Gap 6 Blood Urea Nitrogen 26 Creatinine 1.60 Random Glucose 135 Calcium Level 8.7 Imaging Last Impressions Chest X-Ray 09/06/16 0600 Signed Impressions: Service Date/Time: Tuesday, September 06, 2016 04:51 - CONCLUSION: Resolving failure, now mild. Scott Austin MD Head CT 09/03/16 1943 Signed Impressions: Service Date/Time: Saturday, September 03, 2016 20:20 - CONCLUSION: No acute intracranial disease. Osbaldo Abebe MD Physical Exam HEENT: EOMI; normocephalic; atraumatic; no jaundice. CHEST: Chest is clear to auscultation and percussion. CARDIAC: Regular rate and rhythm with no murmur gallop or rubs. ABDOMEN: Soft, nondistended, nontender; no hepatosplenomegaly; bowel sounds are present in all four quadrants. EXTREMITIES: No clubbing, cyanosis, or edema. SKIN: Normal; no rash; no jaundice. HAND STRIPPER: No focal deficits; alert. (Keena Madsen [facility]) Assessment and Plan Plan ASSESSMENT: GI bleed, had episode of bright red blood per rectum yesterday. Hemoccult pending. Has history of recent GI bleed 08/13/16 while at [place]. EGD (08/15/16) due to melena and anemia. EGD-->LA Class B esophagitis, gastritis in gastric antrum, old blood in stomach visualized. EGD/Colonoscopy ()--> Gastritis antrum, irregular z line, duodenal normal, retroflexed views revealed a hiatal hernia, poor prep, 7mm polyp descending, complete removal, diverticulosis in sigmoid and descending, retroflexed views revealed internal hemorrhoids, small internal hemorrhoids, external hemorrhoids. Path benign, adenomatous polyp descending colon. H/H stable, 10.0/ 32.1 PLAN: - Await Hemoccult results. - H/H stable - if further bleeding, will do bleeding scan -Further recommendations to follow based on results of above. Patient seen and examined by Dr. Maria and myself and this note is written on his behalf. (Keena Madsen) Physician Comments Seen and examined with DOUBLE REAMER OPERATOR, no active bleeding reported. Recent gi taylor noted. Bleeding scan if rebleeds. (Nette Maria MD) Keena Madsen September 09, 2016 12:28 Nette Maria MD September 10, 2016 14:57
[2016-09-09] MEDS: ONDANSETRON HCL 4 MG/2 ML VIAL IV PUSH PRN (16:58)
[2016-09-09] MEDS: FUROSEMIDE 20 MG TAB PO SCH (20:39)
[2016-09-09] MEDS: PRAVASTATIN SOD 40 MG TAB PO SCH (20:40)
[2016-09-09] MEDS: LATANOPROST 0.005% OPHT SOLN 2.5 ML BTL RIGHT EYE SCH (20:49)
[2016-09-10] VITALS (20 sets, daily range): BP systolic 108–113; BP diastolic 72–80; PULSE 86–100; RESP 18–20; TEMP 97.4–98; O2SAT 92–98
[2016-09-10] MEDS: CHLORHEXIDINE GLUCONATE 2 % 1 PACK (2 CLOTHS) TOP SCH (04:00)
[2016-09-10] MEDS: INSULIN ASPART SUPPLEMENTAL SCALE SQ SCH ×2 (05:04→12:34)
[2016-09-10] MEDS: LEVOTHYROXINE SODIUM 50 MCG TAB PO SCH (05:04)
[2016-09-10] MEDS: ISOSORBIDE MONONITRATE 30 MG TAB PO SCH (05:04)
[2016-09-10 06:47] LABS: HEMATOCRIT 30.7 % (39.0-51.0); MEAN CELL VOLUME 94.9 FL (80.0-100.0); MEAN CORPUSCULAR HGB CONC 32.7 % (32.0-36.0); PLATELET COUNT 203 TH/MM3 (150-450); RED BLOOD COUNT 3.23 MIL/MM3 (4.50-5.90); REVIEW FLAG FINAL; WHITE BLOOD COUNT 8.4 TH/MM3 (4.0-11.0)
[2016-09-10 07:17] LABS: ANION GAP 6 MEQ/L (5-15); BICARBONATE GREATER THAN 45.0 MEQ/L (21.0-32.0); BLOOD UREA NITROGEN 30 MG/DL (7-18); CHLORIDE 81 MEQ/L (98-107); GLOMERULAR FILTRATION RATE 44 ML/MIN (>89); POTASSIUM 3.7 MEQ/L (3.5-5.1); SODIUM (NA) 132 MEQ/L (136-145)
[2016-09-10] MEDS: SODIUM CHLORIDE 0.9% FLUSH 10 ML FLUSH IV FLUSH SCH (09:00)
[2016-09-10] MEDS: ASPIRIN EC 81 MG TABEC PO SCH (09:00)
[2016-09-10] MEDS: CARVEDILOL 6.25 MG TAB PO SCH (09:00)
[2016-09-10] MEDS: TIMOLOL MALEATE 0.5% OPHT SOLN 5 ML BTL RIGHT EYE SCH (09:00)
[2016-09-10] MEDS: APIXABAN 5 MG TABLET PO SCH (09:00)
[2016-09-10] MEDS: LACTULOSE SYRUP 20 GM/30 ML CUP PO SCH (09:00)
[2016-09-10] MEDS: PANTOPRAZOLE SOD 20 MG DELAYED RELEASE TAB PO SCH (09:00)
[2016-09-10] MEDS: DOCUSATE SODIUM 50 MG/SENNA 8.6 MG TAB PO SCH (09:00)
[2016-09-10] MEDS: MUPIROCIN 2% OINT 1 APPLIC/GM SYR EACH NARE SCH (09:00)
[2016-09-10] MEDS: BRIMONIDINE TARTRATE 0.2% OPHT SOLN 5 ML BTL RIGHT EYE SCH (09:00)
[2016-09-10] MEDS: INSULIN DETEMIR 100 UNITS/ML VIAL SQ SCH (10:00)
[2016-09-10] MEDS: FUROSEMIDE 20 MG TAB PO SCH (10:07)
[2016-09-10] MEDS ORDERED: LACT10SO PO (10:27)
[2016-09-10] MEDS ORDERED: DIFL200T PO (10:27)
--- NOTE | 2016-09-10 10:27 | HHI.DS ---
Discharge Summary Admission Date Sep 03, 2016 at 21:49 Discharge Date: September 10, 2016 Admitting Diagnosis shortness of breath, pulmonary edema (1) Congestive heart failure with cardiomyopathy ICD Code: I50.9 Diagnosis: Principal (2) Acute respiratory failure with hypoxia ICD Code: J96.01 Diagnosis: Secondary (3) Pulmonary edema ICD Code: J81.1 Diagnosis: Secondary (4) DM (diabetes mellitus) ICD Code: E11.9 Diagnosis: Secondary Procedures None Brief History - From Admission History of present illness from the admitting physician 70 y/o man transferred from [facility] with vision changes. He has a longstanding dilated cardiomyopathy with pulmonary artery hypertension. The substrate is basically end-stage systolic heart failure and we will sort through mechanisms associated with vision change. There are numerous medication and perfusion issues that may have changed his vision in the left eye. 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 He is presently too uncooperative to evaluate vision further and too unstable to perform MRI for possible optic nerve impingement. The two female family members at the bedside feel that we are perpetuating his suffering but his , they say, insists that everything be done to keep him alive. CBC/BMP: 09/10/16 0608 09/10/16 0608 Significant Findings Laboratory Tests Test 09/09/16 09/10/16 05:48 06:08 Red Blood Count 3.37 MIL/MM3 3.23 MIL/MM3 (4.50-5.90) (4.50-5.90) Hemoglobin 10.0 GM/DL 10.0 GM/DL (13.0-17.0) (13.0-17.0) Hematocrit 32.1 % 30.7 % (39.0-51.0) (39.0-51.0) Mean Corpuscular Hemoglobin 31.2 % Concent (32.0-36.0) Monocytes (%) (Auto) 11.0 % (0.0-8.0) Eosinophils (%) (Auto) 5.8 % (0.0-4.0) Eosinophils # (Auto) 0.5 TH/MM3 (0-0.4) Sodium Level 135 MEQ/L 132 MEQ/L (136-145) (136-145) Chloride Level 84 MEQ/L 81 MEQ/L (98-107) (98-107) Carbon Dioxide Level GREATER THAN GREATER THAN 45.0 MEQ/L 45.0 MEQ/L (21.0-32.0) (21.0-32.0) Blood Urea Nitrogen 26 MG/DL (7-18) 30 MG/DL (7-18) Creatinine 1.60 MG/DL 1.58 MG/DL (0.60-1.30) (0.60-1.30) Random Glucose 135 MG/DL 134 MG/DL (74-106) (74-106) Estimat Glomerular Filtration 44 ML/MIN (>89) Rate Imaging Last Impressions Chest X-Ray 09/06/16 0600 Signed Impressions: Service Date/Time: Tuesday, September 06, 2016 04:51 - CONCLUSION: Resolving failure, now mild. Scott Austin MD Head CT 09/03/16 1943 Signed Impressions: Service Date/Time: Saturday, September 03, 2016 20:20 - CONCLUSION: No acute intracranial disease. Osbaldo Abebe MD PE at Discharge GENERAL: Elderly male in no apparent distress. CARDIOVASCULAR: Normal rate and regular rhythm without murmurs, gallops, or rubs. RESPIRATORY: Good respiratory efforts. Breath sounds equal and clear to auscultation bilaterally. GASTROINTESTINAL: Abdomen soft, non-tender, non-distended. Normal active bowel sounds MUSCULOSKELETAL: Extremities without cyanosis, or edema. NEURO: Alert & Oriented x4 to person, place, time, situation. Moves all ext x4 PSYCH: Appropriate mood and affect. Transfer Summary 09/03: 70 y/o man transferred from [facility] with vision changes. He has a longstanding dilated cardiomyopathy with pulmonary artery hypertension. The substrate is basically end-stage systolic heart failure and we will sort through mechanisms associated with vision change. There are numerous medication and perfusion issues that may have changed his vision in the left eye. 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 He is presently too uncooperative to evaluate vision further and too unstable to perform MRI for possible optic nerve impingement. The two female family members at the bedside feel that we are perpetuating his suffering but his , they say, insists that everything be done to keep him alive. Listed below are recommendations from discharge 5 days prior to current admission: Assessment and Plan 1. CAD Status post CABG/Ischemic cardiomyopathy with ejection fraction of 25% on echocardiogram dated 08/03/[address] as per Doctor Salmon the Pacemaker was interrogated two months ago and no evidence for firing, he agreed with switch of Plavix for Apixaban as per mental health program specialist he will need to be off one of the Anti-Platelet medicines due to that he is on Heparin and recent GI bleed, status post Stress test and no ischemic disease, as per denial resolution specialist recommended to switch to Eliquis and discontinue Heparin. Cardiology agree with Discharge, signed off the case 2. CKD III creatinine trending down to baseline. continue drinking water 3. COPD on Bronchodilator, Mucolytic and incentive spirometry, not exacerbated at this time 4. History of STEMI with Cardiac Arrest on 08/04/16, status post CPR with ROSC. stable. 5. DM II continue sliding scale on Moderate dose and added Levemir 5 units BID. better control. 6. Anemia Hemoglobin 9.2 he had recent GI bleed 08/13/16, okay from GI specialist for discharge. 7. Hyperlipidemia to continue Statins 8. CAD/CHF Systolic dysfunction EF 25% status post Pacemaker placement 9. Hypertension controlled. 10. GI bleed/Sigmoid diverticulosis/Internal and External Hemorrhoids/7mm Colonic Polyps Continue PPI and Carafate. 11. BPH to continue Flomax 0.4 mg daily. 12. UTI Treated on Rocephin no further antibiotics. 13. 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 contact precautions. Mupirocin Ointment 09/04: Remains on BiPAP with full facemask. 09/05: Diuresed well since yesterday. On Ventimask currently and appears comfortable. Advancing diet. Wishes to remain a full CODE STATUS. Pt update on day of discharge "I feel ok." Pt encountered laying abed, no new complaints or concerns voiced. Pt stated he had a bowel movement yesterday. Wound care of right heel provided by nursing, wound care nurse present and was to see and evaluate after Hospitalist team had completed it's visit. No other issues or complaints presented at this time. Hospital Course Mr. Damico was brought to [place] ED [facility]. Upon admission he was diagnosed with: 1. Hypoxemic Respiratory Failure. 2. [facility]. pt was not cooperative with clinician attempting to examine the eye. 3. Dilated ischemic cardiomyopathy and end-stage systolic heart failure. 4. Diabetes type 2. 5. CO2 retention. Services were provided by the ED team, as well as Hospitalist service, critical care physician, palliative care, and GI (for rectal bleeding which was ultimately determined to be related to hemorrhoids). Treatment for the following issues were undertaken during this hospitalization: Hypoxemic, hypercapnic Respiratory Failure due to acute on chronic systolic CHF - improved keep on oxygen to keep O2 sat >89- 95%- BiPaP as needed. Avoid too much oxygen. He is still hypercapnic continue lasix and coreg- no LEONEL-I for now due to low BP readings. D/c'd Damon Switch to oral Lasix CAD- s/p CABG continue aspirin,eliquis,imdur, coreg and statin. chronic renal insufficiency; stable. Will monitor for now. Diabetes type 2; continue levemir and accu-check with SSI COPD- keep on oxygen as needed to keep O2 sat 90%-92% continue with neb treatment questionable left eye vision change- improved. CT head with no acute abnormality. Outpatient follow-up is advised. Insomnia: Restoril 15mg qHS PRN Right heel wound: Consulted wound care nurse. Constipation: Lactulose 30mL daily, received 1 dose 09/07. enema PRN & connor- colace jeb. GI following. Palliative care team followed the patient. Pt Condition on Discharge: Stable Discharge Disposition: Discharge to SNF Discharge Time: > 30 minutes Discharge Instructions DIET: Follow Instructions for: Heart Healthy Diet, Diabetic Diet Follow up Referrals: PCP Follow-up - 1 Week New Medications: Fluconazole (Diflucan) 200 Mg Tab 200 MG PO DAILY Infection #14 Ref 0 TAB Lactulose Liq (Lactulose Liq) 10 Gm/15 Ml Soln 30 ML PO DAILY #30 ML Continued Medications: Apixaban (Eliquis) 5 Mg Tab 5 MG PO BID anticoagulation #60 Ref 0 TAB Ascorbic Acid (Ascorbic Acid) 500 Mg Tab 500 MG PO BID TAB Aspirin DR (Aspirin EC Low Dose) 81 Mg Tabec 81 MG PO DAILY TAB Brimonidine-Timolol Opth Drops (Combigan Opth Drops) 0.2-0.5% Soln 1 DROP RIGHT EYE Q12HR Glaucoma Ref 0 BOTTLE Brinzolamide Opth Drops (Azopt Opth Drops) 1% Susp 1 DROP RIGHT EYE BID BOTTLE Carvedilol (Carvedilol) 6.25 Mg Tab 6.25 MG PO BID HTN #60 Ref 0 TAB Docusate Sodium (Colace) 100 Mg Cap 100 MG PO BID Constipation #60 Ref 0 CAP Ferrous Sulfate (Ferrous Sulfate) 325 Mg Tab 325 MG PO DAILY Nutritional Supplement #30 Ref 0 TAB Furosemide (Furosemide) 40 Mg Tab 40 MG PO BID #60 Ref 0 TAB Insulin Detemir Inj (Levemir Inj) 1,000 unit/ 10 ML Vial 5 UNITS SQ Q12HR DM #1 Ref 0 INJECTION Insulin Lispro (Human) Inj (Humalog Inj) 1,000 Unit/10 Ml Vial 1-9 UNITS SQ ACHS Max dose at bedtime:( )units; sugars< 70,(0)units; sugars 150 -199,(1)unit; sugars 200-249,(3)units; sugars 250-299,(5)units; sugars 300-349,( 7)units; sugars more than 349,(9)units. Blood Sugar Management #1 Ref 0 VIAL Ipratropium Neb (Ipratropium Neb) 0.5 Mg/2.5 Ml Amp 0.5 MG NEB Q6HR NEB COPD #1 Ref 0 ML Isosorbide Mononitrate ER (Isosorbide Mononitrate ER) 30 Mg Adriana 30 MG PO DAILY Prevent Chest Pain #30 Ref 0 TAB Levothyroxine (Levothyroxine) 50 Mcg Tab 50 MCG PO DAILY Thyroid #30 Ref 0 TAB Magnesium Oxide (Magnesium Oxide) 500 Mg Tab 500 MG PO DAILY HYPOMAGNESIA Ref 0 TAB Multiple Vitamin (Multiple Vitamin) 1 Tab 1 TAB PO DAILY Nutritional Supplement Ref 0 TAB Mupirocin Nasal Oint (Bactroban Nasal Oint) 2% Oint 1 APPLIC EACH NARE BID For 5 days. Mgmt Bacterial Infection #1 Ref 0 TUBE Nitroglycerin SL (Nitroglycerin SL) 0.4 Mg Subl 0.4 MG SL DIRECTED ONE TABLET UNDER THE TONGUE NEEDED FOR CHEST PAIN, MAY REPEAT EVERY FIVE MINUTES FOR A TOTAL OF 3 DOSES OR CALL 911 IF NO RELIEF PRN CHEST PAIN #100 Ref 0 TAB.SL Omeprazole (Omeprazole) 20 Mg Tab 20 MG PO DAILY GI BLEED #30 Ref 0 TAB Polyvinyl Alcohol-Povidone Opth Drops (Refresh Opth Drops) 1.4-0.6% Drops 1 DROP EACH EYE TID PRN DRY EYE #1 Ref 0 BOTTLE Simvastatin (Zocor) 20 Mg Tab 20 MG PO HS Cholesterol Management #30 Ref 0 TAB Tamsulosin (Flomax) 0.4 Mg Cap 0.4 MG PO DAILY BPH #30 Ref 0 CAP Travoprost Opth Drops (Travatan Z Opth Drops) 0.004 % Soln 1 DROP RIGHT EYE HS Glaucoma #1 Ref 0 BOTTLE Discontinued Medications: Hydrocodone-Acetaminophen (Hydrocodone-Acetaminophen) 5-325 mg Tab 1 TAB PO Q4H PRN PAIN #15 Ref 0 TAB Additional Information Written by Winston Ocampo, acting as scribe for Dr. Miller on 09/10/16 at 10:37. This note was transcribed by scribe [ Winston Ocampo]. I, Dr. Stephanie Miller personally performed the history, physical exam, and medical decision making; and confirmed the accuracy of the information in the transcribed note. Authenticated by Dr. Stephanie Miller on 09/10/16 at 1121. Winston Ocampo Jr. September 10, 2016 10:27 Stephanie Miller MD September 10, 2016 16:55 1 TAB PO DAILY Nutritional Supplement Ref 0 TAB Mupirocin Nasal Oint (Bactroban Nasal Oint) 2% Oint 1 APPLIC EACH NARE BID For 5 days. Mgmt Bacterial Infection #1 Ref 0 TUBE Nitroglycerin SL (Nitroglycerin SL) 0.4 Mg Subl 0.4 MG SL DIRECTED ONE TABLET UNDER THE TONGUE NEEDED FOR CHEST PAIN, MAY REPEAT EVERY FIVE MINUTES FOR A TOTAL OF 3 DOSES OR CALL 911 IF NO RELIEF PRN CHEST PAIN #100 Ref 0 TAB.SL Omeprazole (Omeprazole) 20 Mg Tab 20 MG PO DAILY GI BLEED #30 Ref 0 TAB Polyvinyl Alcohol-Povidone Opth Drops (Refresh Opth Drops) 1.4-0.6% Drops 1 DROP EACH EYE TID PRN DRY EYE #1 Ref 0 BOTTLE Simvastatin (Zocor) 20 Mg Tab 20 MG PO HS Cholesterol Management #30 Ref 0 TAB Tamsulosin (Flomax) 0.4 Mg Cap 0.4 MG PO DAILY BPH #30 Ref 0 CAP Travoprost Opth Drops (Travatan Z Opth Drops) 0.004 % Soln 1 DROP RIGHT EYE HS Glaucoma #1 Ref 0 BOTTLE Discontinued Medications: Hydrocodone-Acetaminophen (Hydrocodone-Acetaminophen) 5-325 mg Tab 1 TAB PO Q4H PRN PAIN #15 Ref 0 TAB Additional Information Written by Winston Ocampo, acting as scribe for Dr. Miller on 09/10/16 at 10:37. Winston Ocampo Jr. September 10, 2016 10:27
--- NOTE | 2016-09-10 11:05 | HHI.HCPN ---
Reason for visit a. To assist with evaluation and management of symptoms including:dyspnea b. To assist medical decision maker(s) with: better understanding of current medical conditions; weighing benefits/burdens of medical treatment options; making medical treatment decisions. 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 Has yet to get out of bed w PT. Denies dyspnea and pain. States he feels weak. Would like to go home, but has no one to manage his care. Also now has wound to R heel and buttocks. Again discussed DNR status. States he would talk w his family. Anticipate DC back to SNF Advance Directives Living Will: Never completed Health Care Surrogate: Copy in medical record Durable Power of Installation Engineer: Never completed Advance Directive Specifics Date completed: 09/04/16 Health Care Surrogate(s): Nadege Damico, sister, or [phone] Documented care wishes: Objective Vital Signs Date Time Temp Pulse Resp B/P Pulse Ox O2 Delivery O2 Flow Rate FiO2 09/10/16 06:18 95 09/10/16 05:15 94 09/10/16 04:09 90 09/10/16 03:15 97.9 93 20 113/80 92 09/10/16 03:00 91 09/10/16 02:00 88 09/10/16 01:00 86 09/10/16 00:00 96 09/09/16 23:20 98.4 87 18 102/64 98 09/09/16 23:00 86 09/09/16 22:00 84 09/09/16 21:00 90 09/09/16 20:00 92 09/09/16 19:44 98 Nasal Cannula 3.00 09/09/16 19:00 96 09/09/16 19:00 95 Nasal Cannula 2.00 09/09/16 19:00 98.2 92 20 100/54 95 09/09/16 18:18 20 09/09/16 18:00 94 09/09/16 17:00 92 09/09/16 16:00 90 09/09/16 15:00 90 09/09/16 15:00 98.5 93 18 99/64 99 09/09/16 14:00 92 09/09/16 13:00 98 09/09/16 12:00 97.8 96 18 118/78 100 09/09/16 12:00 88 09/09/16 11:00 88 Physical Exam CONSTITUTIONAL/GENERAL: This is an adequately nourished patient, in no apparent distress. TUBES/LINES/DRAINS: Nasal cannula, urinary catheter SKIN: No jaundice, rashes, or lesions. Ecchymoses on upper extremities. No wounds seen anteriorly. Skin temperature appropriate. Not diaphoretic. HEAD: Atraumatic. Normocephalic. EYES: Pupils equal and round and reactive. Extraocular motions intact. No scleral icterus. No injection or drainage. ENT: Hearing grossly normal. Nose without bleeding or purulent drainage. Throat without visible erythema, exudates, masses, or lesions. NECK: Trachea midline. Supple, nontender. No palpable thyroid enlargement or nodularity. CARDIOVASCULAR: Regular rate and rhythm without murmurs, gallops, or rubs. No JVD. Peripheral pulses symmetric. RESPIRATORY/CHEST: On 3 L nasal cannula- Symmetric, unlabored respirations. Clear to auscultation. Breath sounds diminished A&P . No wheezes, rales, or rhonchi. GASTROINTESTINAL: Abdomen soft, non-tender, nondistended. No hepato-splenomegaly , or palpable masses. No guarding. Bowel sounds present. GENITOURINARY: Without palpable bladder distension. Damon catheter in place. MUSCULOSKELETAL: Extremities without clubbing, cyanosis, or edema. No joint tenderness or effusion noted. No calf tenderness. No mottling or clubbing.Wound to R heel LYMPHATICS: No palpable cervical or supraclavicular adenopathy. NEUROLOGICAL: Awake and alert. Motor and sensory grossly within normal limits. Follows commands. appears to be Cognitively sharp. Moves all extremities. PSYCHIATRIC: No obvious anxiety/depression. no apparent hallucinations or other psychotic thought process. Diagnostic Tests Laboratory Laboratory Tests Test 09/09/16 09/10/16 05:48 06:08 White Blood Count 7.8 TH/MM3 8.4 TH/MM3 (4.0-11.0) (4.0-11.0) Red Blood Count 3.37 MIL/MM3 3.23 MIL/MM3 (4.50-5.90) (4.50-5.90) Hemoglobin 10.0 GM/DL 10.0 GM/DL (13.0-17.0) (13.0-17.0) Hematocrit 32.1 % 30.7 % (39.0-51.0) (39.0-51.0) Mean Corpuscular Volume 95.1 FL 94.9 FL (80.0-100.0) (80.0-100.0) Mean Corpuscular Hemoglobin 29.7 PG 31.0 PG (27.0-34.0) (27.0-34.0) Mean Corpuscular Hemoglobin 31.2 % 32.7 % Concent (32.0-36.0) (32.0-36.0) Red Cell Distribution Width 17.0 % 17.0 % (11.6-17.2) (11.6-17.2) Platelet Count 186 TH/MM3 203 TH/MM3 (150-450) (150-450) Mean Platelet Volume 8.8 FL 8.9 FL (7.0-11.0) (7.0-11.0) Neutrophils (%) (Auto) 66.2 % (16.0-70.0) Lymphocytes (%) (Auto) 15.9 % (9.0-44.0) Monocytes (%) (Auto) 11.0 % (0.0-8.0) Eosinophils (%) (Auto) 5.8 % (0.0-4.0) Basophils (%) (Auto) 1.1 % (0.0-2.0) Neutrophils # (Auto) 5.2 TH/MM3 (1.8-7.7) Lymphocytes # (Auto) 1.2 TH/MM3 (1.0-4.8) Monocytes # (Auto) 0.9 TH/MM3 (0-0.9) Eosinophils # (Auto) 0.5 TH/MM3 (0-0.4) Basophils # (Auto) 0.1 TH/MM3 (0-0.2) CBC Comment DIFF FINAL Differential Comment Sodium Level 135 MEQ/L 132 MEQ/L (136-145) (136-145) Potassium Level 3.7 MEQ/L 3.7 MEQ/L (3.5-5.1) (3.5-5.1) Chloride Level 84 MEQ/L 81 MEQ/L (98-107) (98-107) Carbon Dioxide Level GREATER THAN GREATER THAN 45.0 MEQ/L 45.0 MEQ/L (21.0-32.0) (21.0-32.0) Anion Gap 6 MEQ/L (5-15) 6 MEQ/L (5-15) Blood Urea Nitrogen 26 MG/DL (7-18) 30 MG/DL (7-18) Creatinine 1.60 MG/DL 1.58 MG/DL (0.60-1.30) (0.60-1.30) Random Glucose 135 MG/DL 134 MG/DL (74-106) (74-106) Calcium Level 8.7 MG/DL 8.8 MG/DL (8.5-10.1) (8.5-10.1) Estimat Glomerular Filtration 44 ML/MIN (>89) Rate Result Diagram: 09/10/1660709/10/16607 Assessment and Plan Disease Oriented Problem List: (1) Shortness of breath Comment: Improving. (2) Ischemic cardiomyopathy (3) DM (diabetes mellitus) (4) Respiratory failure Comment: Recent hypoxic failure likely secondary to cardiomyopathy; (5) Congestive heart failure with cardiomyopathy Symptom Scale: (1) Pain 0-10 Scale: 3 Comment: Continues to complain of right-sided rib pain post CPR approximately one month ago; now with prolonged bedrest (2) Dyspnea 0-10 Scale: 4 Pertinent Non-Medical Issues Psychosocial:70 yo male, originally from [place]. 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 He tells me he is from his [place] who is living in [place]. He has 1 biological daughter, Allegra, who is also in [place]. He is mother is still living, age 91, and he had moved in to live with her. He has 2 sisters Nadege and Myra and one brother Anastacio in this local area as well. Relies support from his sister Nadege. He had been functionally capable of managing his own ADLs, however, would use scooters or a wheelchair if she was going to go any distance. 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 Spiritual: He is an affiliated however, is a strong believer in God and God's power to heal. Legal: his sister Nadege serve as HCS. Nadege has been involved in his care and oversight and is in communication with the rest of the family. She agrees to serve and feels she would follow his wishes. Ethical issues impacting care: Important Contacts Nadege Damico, STACEY, sister, or [phone] Prognosis Prognosis is fair in light of his significant dilated cardiomyopathy with CHF. EF 25%, AICD. He will likely discharge from this admission, however, he is high risk for recurrence of CHF exacerbation versus [place] versus lethal arrhythmia Code Status: Full Code Plan Decision Maker: Nadege Damico, , - [phone] Code Status: Patient clearly indicates that he wishes to be a full CODE STATUS and would want CPR. He has no designated living will Family Discussion: Doing better, family supportive, have talked more about Living will and DNR status in planning for the future Symptoms: Dyspnea, pain, Palliative care phone number provided - will follow during hospital stay. Attestation To help prompt me to consider important information that might be impacting today's encounter and assessment, information from prior notes written by myself or my colleagues may have been "brought forward" into today's note. My signature on this note, however, is an attestation that I personally performed the exam, history, and/or decision-making noted today, and, unless otherwise indicated, the interactions with patient, family, and staff as well as the review of records all occurred today. I also attest that the listed assessment and stated plan reflect my best clinical judgment today based on the combination of historical information, prior notes, and today's exam/ interactions. When time spent is documented, it refers only to time spent today by the signer, or if indicated, combined time spent today by collaborating physician/nurse practitioner. Natalie Vargas September 10, 2016 11:05
--- NOTE | 2016-09-10 11:14 | HHI.DCPOC ---
Discharge Care Plan Diagnosis: (1) Pulmonary edema (2) DM (diabetes mellitus) Goals to Promote Your Health * To prevent worsening of your condition and complications * To maintain your health at the optimal level Directions to Meet Your Goals Take your medications as prescribed Follow your dietary instruction Follow activity as directed Keep your appointments as scheduled Take your immunizations and boosters as scheduled If your symptoms worsen call your PCP, if no PCP go to Urgent Care Center or Emergency Room Smoking is Dangerous to Your Health. Avoid second hand smoke Call the 24-hour hour crisis hotline for domestic abuse at [facility] September 10, 2016 11:14 Stephanie Miller MD September 10, 2016 16:52
--- NOTE | 2016-09-10 11:17 | HHI.DCPOC ---
Discharge Care Plan Diagnosis: (1) DM (diabetes mellitus) (2) Congestive heart failure with cardiomyopathy (3) Acute respiratory failure with hypoxia (4) Pulmonary edema Goals to Promote Your Health * To prevent worsening of your condition and complications * To maintain your health at the optimal level Directions to Meet Your Goals Take your medications as prescribed Follow your dietary instruction Follow activity as directed Keep your appointments as scheduled Take your immunizations and boosters as scheduled If your symptoms worsen call your PCP, if no PCP go to Urgent Care Center or Emergency Room Smoking is Dangerous to Your Health. Avoid second hand smoke Call the 24-hour hour crisis hotline for domestic abuse at [facility] September 10, 2016 11:17 Stephanie Miller MD September 10, 2016 16:52
--- NOTE | 2016-09-10 12:59 | HHI.GIFU ---
Subjective Remarks Pt resting comfortably in bed, ready to eat lunch. Denies pain, n/v, bleeding. Per RN he had BM this morning adn there was no sign of blood and there have been no other signs bleeding. (Keena Madsen) Objective Vitals I&O Vital Signs Date Time Temp Pulse Resp B/P Pulse Ox O2 Delivery O2 Flow Rate FiO2 09/10/16 11:16 98 Nasal Cannula 3.00 09/10/16 06:18 95 09/10/16 05:15 94 09/10/16 04:09 90 09/10/16 03:15 97.9 93 20 113/80 92 09/10/16 03:00 91 09/10/16 02:00 88 09/10/16 01:00 86 09/10/16 00:00 96 09/09/16 23:20 98.4 87 18 102/64 98 09/09/16 23:00 86 09/09/16 22:00 84 09/09/16 21:00 90 09/09/16 20:00 92 09/09/16 19:44 98 Nasal Cannula 3.00 09/09/16 19:00 96 09/09/16 19:00 95 Nasal Cannula 2.00 09/09/16 19:00 98.2 92 20 100/54 95 09/09/16 18:18 20 09/09/16 18:00 94 09/09/16 17:00 92 09/09/16 16:00 90 09/09/16 15:00 90 09/09/16 15:00 98.5 93 18 99/64 99 09/09/16 14:00 92 09/09/16 13:00 98 I/O 09/09/16 09/09/16 09/09/16 09/10/16 09/10/16 09/10/16 07:00 15:00 23:00 07:00 15:00 23:00 Intake Total 480 ml 720 ml 480 ml Output Total 580 ml 525 ml Balance -100 ml 720 ml -45 ml Intake Oral 480 ml 720 ml 480 ml Output Urine Total 580 ml 525 ml # Voids 4 # Bowel Movements 2 Laboratory Laboratory Tests Test 09/10/16 06:08 White Blood Count 8.4 Red Blood Count 3.23 Hemoglobin 10.0 Hematocrit 30.7 Mean Corpuscular Volume 94.9 Mean Corpuscular Hemoglobin 31.0 Mean Corpuscular Hemoglobin 32.7 Concent Red Cell Distribution Width 17.0 Platelet Count 203 Mean Platelet Volume 8.9 Sodium Level 132 Potassium Level 3.7 Chloride Level 81 Carbon Dioxide Level GREATER THAN 45.0 Anion Gap 6 Blood Urea Nitrogen 30 Creatinine 1.58 Estimat Glomerular Filtration 44 Rate Random Glucose 134 Calcium Level 8.8 Imaging Last Impressions Chest X-Ray 09/06/16 0600 Signed Impressions: Service Date/Time: Tuesday, September 06, 2016 04:51 - CONCLUSION: Resolving failure, now mild. Scott Austin MD Head CT 09/03/16 1943 Signed Impressions: Service Date/Time: Saturday, September 03, 2016 20:20 - CONCLUSION: No acute intracranial disease. Osbaldo Abebe MD Physical Exam HEENT: EOMI; normocephalic; atraumatic; no jaundice. CHEST: Chest is clear to auscultation and percussion. CARDIAC: Regular rate and rhythm with no murmur gallop or rubs. ABDOMEN: Soft, nondistended, nontender; no hepatosplenomegaly; bowel sounds are present in all four quadrants. EXTREMITIES: No clubbing, cyanosis, or edema. SKIN: Normal; no rash; no jaundice. WAREHOUSE ORDER FILLER: No focal deficits; alert. (Keena Madsen [facility]) Assessment and Plan Plan ASSESSMENT: - GI bleed, had episode of bright red blood per rectum 2 days ago, none since. pt had BM today, no blood. Hemoccult pending. Has history of recent GI bleed 08/13/16 while at [place]. EGD (08/15/16) due to melena and anemia. EGD-->LA Class B esophagitis, gastritis in gastric antrum, old blood in stomach visualized. EGD/Colonoscopy (08/26/16)--> Gastritis antrum, irregular z line, duodenal normal, retroflexed views revealed a hiatal hernia, poor prep, 7mm polyp descending, complete removal, diverticulosis in sigmoid and descending, retroflexed views revealed internal hemorrhoids, small internal hemorrhoids, external hemorrhoids. Path benign, adenomatous polyp descending colon. H/H stable, 10.0/32.1 PLAN: - Await Hemoccult results. - H/H stable - if further bleeding, will do bleeding scan - GI will sign off, please reconsult as needed Patient seen and examined by Dr. Maria and myself and this note is written on his behalf. (Keena Madsen) Physician Comments Seen and examined with [facility], no active bleeding. Monitor labs. Bleeding scan if rebleeds. Can dc home with gi fu. Thank you (Nette Maria MD) Keena Madsen September 10, 2016 12:59 Nette Maria MD September 10, 2016 15:01
== END 2016-09-10 16:26 | DRG 291 ==
LOC: NEPC 18:55 → NEDA 21:49 → HIME 09-04 00:20 → HCIS 09-06 12:26
PROVIDERS: ADMIT Family Medicine; ATTEND Family Medicine
DX: I50.23 Acute on chronic systolic (congestive) heart failure (principal); J96.01 Acute respiratory failure with hypoxia; E87.2 Acidosis; I13.0 Hypertensive heart and chronic kidney disease with heart failure and stage 1 through stage 4 chronic kidney disease, or unspecified chronic kidney disease; I25.810 Atherosclerosis of coronary artery bypass graft(s) without angina pectoris; I42.0 Dilated cardiomyopathy; N39.0 Urinary tract infection, site not specified; E11.22 Type 2 diabetes mellitus with diabetic chronic kidney disease; N18.3 Chronic kidney disease, stage 3 (moderate); E78.5 Hyperlipidemia, unspecified; I25.5 Ischemic cardiomyopathy; D12.4 Benign neoplasm of descending colon; D50.0 Iron deficiency anemia secondary to blood loss (chronic); E03.9 Hypothyroidism, unspecified; G47.00 Insomnia, unspecified; H40.9 Unspecified glaucoma; H54.41 Blindness, right eye, normal vision left eye; Z95.1 Presence of aortocoronary bypass graft; I25.2 Old myocardial infarction; I27.2 Other secondary pulmonary hypertension; J44.9 Chronic obstructive pulmonary disease, unspecified; K44.9 Diaphragmatic hernia without obstruction or gangrene; K59.00 Constipation, unspecified; M19.90 Unspecified osteoarthritis, unspecified site; N40.0 Benign prostatic hyperplasia without lower urinary tract symptoms; S91.309A Unspecified open wound, unspecified foot, initial encounter; Z51.5 Encounter for palliative care; Z66 Do not resuscitate; Z79.899 Other long term (current) drug therapy; Z86.73 Personal history of transient ischemic attack (TIA), and cerebral infarction without residual deficits; Z87.891 Personal history of nicotine dependence; Z95.0 Presence of cardiac pacemaker
CPT/HCPCS: 36600; 70450; 71010; 80048; 80053; 81001; 82550; 82805; 82948; 83605; 83880; 84439; 84443; 84484; 85025; 85027; 85610; 87040; 87086; 87106; 87641; 93005; 94002; 94003; 94640; 94664; 96374; J1250; J1815; J1940; J2405; J7644

== ENCOUNTER 2016-09-15 08:34 | Inpatient (IN) | payer MEDICARE, MEDICAID ==
[2016-09-15] VITALS (12 sets, daily range): BP systolic 115–139; BP diastolic 59–77; PULSE 101–109; RESP 18–24; TEMP 97.4–98.1; O2SAT 85–99
[~2016-09-15] VITALS: Ht 185.4 cm; Wt 98.5 kg
[~2016-09-15 08:34] MED LIST changes: +DIFL200T PO; -FURO20TA PO; +FURO40TA PO; +HUMALOG SQ; -HYDR-3516 PO; +LACT10SO PO; -SUCR1S PO
[2016-09-15] MEDS ORDERED: FUROSEMIDE 40 MG/4 ML VIAL IVP ONE (09:00)
[2016-09-15] MEDS: SODIUM CHLORIDE 0.9% FLUSH 10 ML FLUSH IVF PRN ×2 (09:00→21:51)
[2016-09-15 09:10] LABS: AUTOMATED NEUTROPHIL # 6.6 TH/MM3 (1.8-7.7); BASOPHIL # 0.1 TH/MM3 (0-0.2); EOSINOPHIL # 0.3 TH/MM3 (0-0.4); EOSINOPHIL % 2.8 % (0.0-4.0); HEMATOCRIT 29.6 % (39.0-51.0); HEMO FLAGS DIFF FINAL; LYMPH % 11.7 % (9.0-44.0); MEAN CELL VOLUME 93.7 FL (80.0-100.0); MONO % 10.4 % (0.0-8.0); NEUT % 74.1 % (16.0-70.0); PLATELET COUNT 251 TH/MM3 (150-450); RED BLOOD COUNT 3.16 MIL/MM3 (4.50-5.90); RED CELL DISTRIBUTION WIDTH 16.6 % (11.6-17.2); WHITE BLOOD COUNT 8.9 TH/MM3 (4.0-11.0)
--- NOTE | 2016-09-15 09:10 | RADRPT ---
EXAM DATE/TIME: 09/15/2016 09:01 [facility] COMPARISON: CHEST SINGLE AP, September 06, 2016, 4:51. INDICATIONS : Short of breath. Followup congestive heart failure. MEDICAL HISTORY : Congestive heart failure. Renal failure, chronic. Diabetes mellitus type 1. SURGICAL HISTORY : Congestive heart failure. Renal failure, chronic. Diabetes mellitus type 1. ENCOUNTER: Initial ACUITY: 1 day PAIN SCORE: 0/10 LOCATION: Bilateral chest FINDINGS: A single AP erect portable view of the chest was obtained and again demonstrates that the patient is status post median sternotomy for bypass grafting procedure. The left subclavian transvenous pacer re selena in place. The heart size remains mildly prominent. Hazy opacity remains at both lung bases left greater than right. The left costophrenic angle remains blunted the costophrenic angle is obscured c onsistent consolidation or effusion. This is not significantly changed. CONCLUSION: No significant change. Bibasal opacities remain left greater than right with probable left effusion. Clovis Soliz MD on September 15, 2016 at 9:05 Board Certified Radiologist. This report was verified electronically.
[2016-09-15 09:22] LABS: APTT (PATIENT) 30.4 SEC (24.3-30.1); PROTHROMBIN TIME - PATIENT 11.4 SEC (9.8-11.6)
[2016-09-15 09:31] LABS: ANION GAP 7 MEQ/L (5-15); AST (GOT) 15 U/L (15-37); BICARBONATE 38.2 MEQ/L (21.0-32.0); BLOOD UREA NITROGEN 34 MG/DL (7-18); CHLORIDE 82 MEQ/L (98-107); GLOMERULAR FILTRATION RATE 52 ML/MIN (>89); POTASSIUM 4.4 MEQ/L (3.5-5.1); SODIUM (NA) 127 MEQ/L (136-145)
[2016-09-15 09:36] LABS: ALKALINE PHOSPHATASE 80 U/L (45-117); ALT (GPT) 14 U/L (12-78); TOTAL BILIRUBIN ADULT 0.4 MG/DL (0.2-1.0)
[2016-09-15 09:43] LABS: CREATINE KINASE 32 U/L (39-308)
[2016-09-15] MEDS ORDERED: POLYVINYL ALC-POVIDONE 1.4/0.6% PF OPTH SOLN 0.4 ML 30 CT EACH EYE PRN (10:15)
[2016-09-15] MEDS: MAGNESIUM OXIDE 400 MG TAB PO SCH (10:45)
[2016-09-15] MEDS: ISOSORBIDE MONONITRATE 30 MG TAB PO SCH (10:45)
[2016-09-15] MEDS: APIXABAN 5 MG TABLET PO SCH ×2 (10:45→21:51)
[2016-09-15] MEDS ORDERED: PILL SPLITTER OTHER PRN (10:45)
[2016-09-15] MEDS ORDERED: NON-FORMULARY DRUG (Insulin Lispro (Human) Inj (Humalog Inj) 0 UNITS) SQ SCH (11:00)
--- NOTE | 2016-09-15 11:02 | PD ---
HPI Chief Complaint: Chest Pain Time Seen by Provider: 08:45 Travel History International Travel<30 days: No Contact w/Intl Traveler<30days: No Traveled to known affect area: No History of Present Illness HPI Patient is a 70 year old male who comes in complaining of SOB. He has a history of CHF with an EF of 25% and was recently admitted to the hospital for this. He says he woke up and had sudden onset of SOB this morning. He also says he feels a pressure in his chest. He denies any cough or cold symptoms. He denies nausea or vomiting. PFSH Past Medical History Hx Anticoagulant Therapy: Yes (ASA. ELIQUIS) Asthma: No Autoimmune Disease: No Blood Disorders: No Heart Rhythm Problems: Yes Cancer: No Cardiovascular Problems: Yes High Cholesterol: Yes Chest Pain: Yes Congestive Heart Failure: Yes COPD: Yes Diabetes: Yes (TYPE 2) Patient Takes Glucophage: No Diminished Hearing: No Endocrine: Yes Gastrointestinal Disorders: Yes (GI BLEED) Genitourinary: Yes Hiatal Hernia: Yes Immune Disorder: No Implanted Vascular Access Dvce: Yes Musculoskeletal: Yes Psychiatric: No Reproductive: No Respiratory: Yes (COPD, PULMONARY EDEMA HX) Myocardial Infarction: Yes Sleep Apnea: No Thyroid Disease: Yes Tetanus Vaccination: < 5 Years Influenza Vaccination: Yes Past Surgical History AICD: Yes Body Medical Devices: PACEMAKER/DEFIBRILATOR Cardiac Surgery: Yes (PACEMAKER DEFIB) Coronary Artery Bypass Graft: Yes Eye Surgery: Yes Pacemaker: Yes (AICD) Other Surgery: Yes (left toe amputation) Social History Alcohol Use: No Tobacco Use: No (QUIT 40 yrs ago) Substance Use: No Allergies-Medications (Allergen,Severity, Reaction): Coded Allergies: Iodinated Contrast Media (Verified Allergy, Intermediate, ITCHING, 09/15/16) Sulfa (Verified Allergy, Intermediate, RASH, 09/15/16) *MDRO Multi-Drug Resistant Organism (Verified Adverse Reaction, Unknown, ) MRSA PCR Screen POSITIVE - 08/25/2016 & 09/04/2016 Reported Meds & Prescriptions Reported Meds & Active Scripts Active Diflucan (Fluconazole) 200 Mg Tab 200 Mg PO DAILY Lactulose Liq (Lactulose) 10 Gm/15 Ml Soln 30 Ml PO DAILY Flomax (Tamsulosin HCl) 0.4 Mg Cap 0.4 Mg PO DAILY Ipratropium Neb (Ipratropium Waddy) 0.5 Mg/2.5 Ml Amp 0.5 Mg NEB Q6HR NEB Eliquis (Apixaban) 5 Mg Tab 5 Mg PO BID Levemir Inj (Insulin Detemir) 1,000 unit/ 10 ML Vial 5 Units SQ Q12HR Colace (Docusate Sodium) 100 Mg Cap 100 Mg PO BID Ferrous Sulfate 325 Mg Tab 325 Mg PO DAILY Reported Humalog Inj (Insulin Human Lispro) 1,000 Unit/10 Ml Vial 1-9 Units SQ ACHS Max dose at bedtime:( )units; sugars< 70,(0)units; sugars 150-199,(1)unit; sugars 200-249,(3)units; sugars 250-299,(5)units; sugars 300-349,(7)units; sugars more than 349,(9)units. Azopt Opth Drops (Brinzolamide) 1% Susp 1 Drop RIGHT EYE BID Furosemide 40 Mg Tab 40 Mg PO BID Ascorbic Acid 500 Mg Tab 500 Mg PO BID Multiple Vitamin 1 Tab 1 Tab PO DAILY Omeprazole 20 Mg Tab 20 Mg PO DAILY Magnesium Oxide 500 Mg Tab 500 Mg PO DAILY Travatan Z Opth Drops (Travoprost) 0.004 % Soln 1 Drop RIGHT EYE HS Carvedilol 6.25 Mg Tab 6.25 Mg PO BID Zocor (Simvastatin) 20 Mg Tab 20 Mg PO HS Nitroglycerin SL (Nitroglycerin) 0.4 Mg Subl 0.4 Mg SL DIRECTED PRN ONE TABLET UNDER THE TONGUE NEEDED FOR CHEST PAIN, MAY REPEAT EVERY FIVE MINUTES FOR A TOTAL OF 3 DOSES OR CALL 911 IF NO RELIEF Levothyroxine (Levothyroxine Sodium) 50 Mcg Tab 50 Mcg PO DAILY Isosorbide Mononitrate ER (Isosorbide Mononitrate) 30 Mg Adriana 30 Mg PO DAILY Combigan Opth Drops (Brimonidine-Timolol Opth Drops) 0.2-0.5% Soln 1 Drop RIGHT EYE Q12HR Aspirin EC Low Dose (Aspirin) 81 Mg Tabec 81 Mg PO DAILY Refresh Opth Drops (Polyvinyl Alcohol-Povidone Opth Drops) 1.4-0.6% Drops 1 Drop EACH EYE TID PRN Review of Systems Except as stated in HPI: all other systems reviewed are Neg General / Constitutional: No: Fever, Chills HENT: No: Headaches, Lightheadedness Cardiovascular: Positive: Chest Pain or Discomfort Respiratory: Positive: Shortness of Breath Gastrointestinal: No: Nausea, Vomiting Musculoskeletal: Positive: Edema Skin: No Rash, No Change in Pigmentation Neurologic: No: Weakness, Dizziness Physical Exam Narrative GENERAL: Awake and alert, in no acute distress. SKIN: Focused skin assessment warm/dry. HEAD: Atraumatic. Normocephalic. EYES: Pupils equal and round. No scleral icterus. ENT: Mucous membranes pink and moist. NECK: Trachea midline. No JVD. CARDIOVASCULAR: Regular rate and rhythm. No murmur appreciated. RESPIRATORY: No accessory muscle use. Crackles mid way up both lungs. Breath sounds equal bilaterally. GASTROINTESTINAL: Abdomen soft, non-tender, nondistended. MUSCULOSKELETAL: No obvious deformities. No clubbing. No cyanosis. Minimal edema bilateral lower extremities. NEUROLOGICAL: Awake and alert. No obvious cranial nerve deficits. Motor grossly within normal limits. Normal speech. PSYCHIATRIC: Appropriate mood and affect; insight and judgment normal. Data Data Last Documented VS Vital Signs Date Time Temp Pulse Resp B/P Pulse Ox O2 Delivery O2 Flow Rate FiO2 09/15/16 09:28 102 20 125/77 99 Nasal Cannula 3 09/15/16 08:41 98.0 Orders Electrocardiogram (09/15/16 ) Complete Blood Count With Diff (09/15/16 08:50) Comprehensive Metabolic Panel (09/15/16 08:50) B-Type Natriuretic Peptide (09/15/16 08:50) Act Partial Throm Time (Ptt) (09/15/16 08:50) Prothrombin Time / Inr (Pt) (09/15/16 08:50) Ckmb (Isoenzyme) Profile (09/15/16 08:50) Troponin I (09/15/16 08:50) Iv Access Insert/Monitor (09/15/16 08:50) Ecg Monitoring (09/15/16 08:50) Oximetry (09/15/16 08:50) Oxygen Administration (09/15/16 08:50) Chest, Single Ap (09/15/16 08:50) Sodium Chloride 0.9% Flush (Ns Flush) (09/15/16 09:00) Furosemide Inj (Lasix Inj) (09/15/16 09:00) Admit Order (Ed Use Only) (09/15/16 ) Admit To Inpatient (09/15/16 ) Inpatient Certification (09/15/16 ) Activity Bed Rest (09/15/16 10:12) Vital Signs (Adult) DARRIAN.Q4H (09/15/16 10:12) Labs Laboratory Tests Test 09/15/16 08:55 White Blood Count 8.9 TH/MM3 Red Blood Count 3.16 MIL/MM3 Hemoglobin 9.5 GM/DL Hematocrit 29.6 % Mean Corpuscular Volume 93.7 FL Mean Corpuscular Hemoglobin 30.0 PG Mean Corpuscular Hemoglobin 32.0 % Concent Red Cell Distribution Width 16.6 % Platelet Count 251 TH/MM3 Mean Platelet Volume 8.8 FL Neutrophils (%) (Auto) 74.1 % Lymphocytes (%) (Auto) 11.7 % Monocytes (%) (Auto) 10.4 % Eosinophils (%) (Auto) 2.8 % Basophils (%) (Auto) 1.0 % Neutrophils # (Auto) 6.6 TH/MM3 Lymphocytes # (Auto) 1.0 TH/MM3 Monocytes # (Auto) 0.9 TH/MM3 Eosinophils # (Auto) 0.3 TH/MM3 Basophils # (Auto) 0.1 TH/MM3 CBC Comment DIFF FINAL Differential Comment Prothrombin Time 11.4 SEC Prothromb Time International 1.0 RATIO Ratio Activated Partial 30.4 SEC Thromboplast Time Sodium Level 127 MEQ/L Potassium Level 4.4 MEQ/L Chloride Level 82 MEQ/L Carbon Dioxide Level 38.2 MEQ/L Anion Gap 7 MEQ/L Blood Urea Nitrogen 34 MG/DL Creatinine 1.35 MG/DL Estimat Glomerular Filtration 52 ML/MIN Rate Random Glucose 133 MG/DL Calcium Level 8.7 MG/DL Total Bilirubin 0.4 MG/DL Aspartate Amino Transf 15 U/L (AST/SGOT) Alanine Aminotransferase 14 U/L (ALT/SGPT) Alkaline Phosphatase 80 U/L Total Creatine Kinase 32 U/L Troponin I 0.05 NG/ML B-Type Natriuretic Peptide 987 PG/ML Total Protein 7.3 GM/DL Albumin 2.5 GM/DL MDM Medical Decision Making Medical Screen Exam Complete: Yes Emergency Medical Condition: Yes Medical Record Reviewed: Yes Interpretation(s) ECG shows paced rhythm. Differential Diagnosis ACS versus NSTEMI versus STEMI versus CHF exacerbation versus pneumonia Narrative Course Patient is a 70-year-old male who comes in with sudden onset shortness of breath. Exam shows crackles mid way up both lungs. Patient had an oxygen saturation in the 80s when he first arrived. This improved on nasal cannula. IV established, labs sent. Patient connected to the court monitor. Chest x- ray shows edema of both lungs, left-sided pleural effusion. Labs show an elevated BNP in the 900s. Creatinine is 1.35. Sodium is 127. Labs are consistent with CHF exacerbation. Patient given Lasix. Will be admitted for further management. Diagnosis Primary Impression: Congestive heart failure with cardiomyopathy Additional Impressions: Hypoxia Hyponatremia Admitting Information Admitting Physician Requests: Admit Condition: Stable Dominique Cuevas MD September 15, 2016 11:02
[2016-09-15] MEDS ORDERED: GLUCAGON 1 MG/ML VIAL OTHER PRN (11:30)
[2016-09-15] MEDS ORDERED: DEXTROSE 50% IN WATER 50 ML VIAL(D50) IV PUSH PRN (11:30)
[2016-09-15] MEDS: LOW DOSE INSULIN NOVOLOG SUPPLEMENTAL SCALE SQ SCH ×3 (11:36→21:51)
[2016-09-15] MEDS: RESP: IPRATROPIUM 0.5 MG/2.5 ML NEB NEB SCH ×2 (15:52→21:08)
--- NOTE | 2016-09-15 16:53 | HHI.HP ---
[facility] Srinivas Naylor MD Admission Diagnosis CHF exacerbation, dyspnea Diagnoses: (1) Congestive heart failure with cardiomyopathy Diagnosis: Principal (2) Renal insufficiency Diagnosis: Secondary Chief Complaint: Shortness of breath Travel History International Travel<30 Days: No Contact w/Intl Traveler <30 Da: No Traveled to Known Affected Are: No History of Present Illness Patient is a 70-year-old male with known history of cardiomyopathy with known ejection fraction of 25% status post AICD, chronic kidney insufficiency, diabetes type 2, BPH was sent here from rehabilitation facility for shortness of breath. Patient is seen with her sister who is his healthcare surrogate. On review of medical patient's records patient has been in here for almost every 2 weeks since last August. Last admission was 11/30 shortness of breath. He is on nasal cannula 2 L. Physical activity/tolerance very limited by his cardiac status. His baseline is 2 pillow orthopnea on and off leg swelling. His sister apparently called the [facility]pc this morning the patient called her and stated shortness of breath and some chest discomfort. And was sent to emergency room for for further evaluation. Patient baseline is almost total assist states he had good bowel movements and no voiding difficulties. No History of CVA, history of cardiopulmonary arrest in August 04. On exam right now patient states he is comfortable. He denies any chest pain or shortness of breath currently at rest. Review of Systems Constitutional: DENIES: Diaphoretic episodes, Fatigue, Fever, Weight gain, Weight loss, Chills, Dizziness, Change in appetite, Night Sweats Endocrine: DENIES: Heat/cold intolerance, Polydipsia, Polyuria, Polyphagia Eyes: DENIES: Blurred vision, Diplopia, Eye inflammation, Eye pain, Vision loss , Photosensitivity, Double Vision Ears, nose, mouth, throat: COMPLAINS OF: Hearing loss (hard of hearing) Respiratory: COMPLAINS OF: Shortness of breath (baseline) Cardiovascular: COMPLAINS OF: Chest pain, Dyspnea on Exertion, Lower Extremity Edema, Orthopnea Gastrointestinal: DENIES: Abdominal pain, Black stools, Bloody stools, Constipation, Diarrhea, Nausea, Vomiting, Difficulty Swallowing, Anorexia Genitourinary: DENIES: Sexual dysfunction, Urinary frequency, Urinary incontinence, Urgency, Hematuria, Dysuria, Nocturia, Penile Discharge, Testicular Pain, Testicular Swelling Musculoskeletal: DENIES: Joint pain, Muscle aches, Stiffness, Joint Swelling, Back pain, Neck pain Integumentary: DENIES: Abnormal pigmentation, Nail changes, Pruritus, Rash Hematologic/lymphatic: DENIES: Bruising, Lymphadenopathy Immunologic/allergic: DENIES: Eczema, Urticaria Neurologic: DENIES: Abnormal gait, Headache, Localized weakness, Paresthesias, Seizures, Speech Problems, Tremor, Poor Balance Psychiatric: DENIES: Anxiety, Confusion, Mood changes, Depression, Hallucinations, Agitation, Suicidal Ideation, Homicidal Ideation, Delusions Past Family Social History Past Medical History Dilated cardiomyopathy, pulmonary hypertension, 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 ejection fraction of 25% status post AICD about 2 months ago Status post cardiopulmonary arrest in August 04 Diabetes type 2 COPD History of GI bleed secondary to duodenitis diverticulosis and hemorrhoids History of BPH Past Surgical History No major surgeries Reported Medications See EMR Allergies: Coded Allergies: Iodinated Contrast Media (Verified Allergy, Intermediate, ITCHING, 09/15/16) Sulfa (Verified Allergy, Intermediate, RASH, 09/15/16) *MDRO Multi-Drug Resistant Organism (Verified Adverse Reaction, Unknown, ) MRSA PCR Screen POSITIVE - 08/25/2016 & 09/04/2016 Family History Noncontributory Social History Quit smoking 4 years ago Denies alcohol or IV drug use Physical Exam Vital Signs Vital Signs Date Time Temp Pulse Resp B/P Pulse Ox O2 Delivery O2 Flow Rate FiO2 09/15/16 15:55 97 Nasal Cannula 2.00 09/15/16 12:29 97.4 104 22 139/60 96 09/15/16 11:36 97.8 102 20 122/74 99 Nasal Cannula 3 09/15/16 10:46 97.8 101 20 121/68 97 Nasal Cannula 3 09/15/16 09:28 102 20 125/77 99 Nasal Cannula 3 09/15/16 08:50 97 Nasal Cannula 3 09/15/16 08:50 20 97 Nasal Cannula 3 09/15/16 08:43 101 20 97 Nasal Cannula 3 09/15/16 08:41 98.0 101 24 115/63 85 Physical Exam GENERAL: Currently in no acute distress O2 sats of 92% at 2 L. Slightly slow in reaction or responding but speech clear maybe from hard of hearing SKIN: No rashes, ecchymoses or lesions. Cool and dry. HEAD: Atraumatic. Normocephalic. No temporal or scalp tenderness. EYES: Pupils equal round and reactive. Extraocular motions intact. No scleral icterus. No injection or drainage. ENT: Nose without bleeding, purulent drainage or septal hematoma. Throat without erythema, tonsillar hypertrophy or exudate. Hard of hearing NECK: Trachea midline. No JVD or lymphadenopathy. Supple, nontender, no meningeal signs. CARDIOVASCULAR: Regular rate and rhythm without murmurs, distant heart sounds RESPIRATORY: Positive bibasal Rales GASTROINTESTINAL: Abdomen soft, non-tender, nondistended. No hepato-splenomegaly , or palpable masses. No guarding. MUSCULOSKELETAL: Extremities without clubbing, cyanosis. Positive pretibial edema No calf tenderness. Negative Homans sign bilaterally. NEUROLOGICAL: Awake and alert. Cranial nerves II through XII intact. On the left eye Motor and sensory grossly within normal limits. Five out of 5 muscle strength in all muscle groups. Normal speech. Laboratory Laboratory Tests Test 09/15/16 08:55 White Blood Count 8.9 Red Blood Count 3.16 Hemoglobin 9.5 Hematocrit 29.6 Mean Corpuscular Volume 93.7 Mean Corpuscular Hemoglobin 30.0 Mean Corpuscular Hemoglobin 32.0 Concent Red Cell Distribution Width 16.6 Platelet Count 251 Mean Platelet Volume 8.8 Neutrophils (%) (Auto) 74.1 Lymphocytes (%) (Auto) 11.7 Monocytes (%) (Auto) 10.4 Eosinophils (%) (Auto) 2.8 Basophils (%) (Auto) 1.0 Neutrophils # (Auto) 6.6 Lymphocytes # (Auto) 1.0 Monocytes # (Auto) 0.9 Eosinophils # (Auto) 0.3 Basophils # (Auto) 0.1 CBC Comment DIFF FINAL Differential Comment Prothrombin Time 11.4 Prothromb Time International 1.0 Ratio Activated Partial 30.4 Thromboplast Time Sodium Level 127 Potassium Level 4.4 Chloride Level 82 Carbon Dioxide Level 38.2 Anion Gap 7 Blood Urea Nitrogen 34 Creatinine 1.35 Estimat Glomerular Filtration 52 Rate Random Glucose 133 Calcium Level 8.7 Total Bilirubin 0.4 Aspartate Amino Transf 15 (AST/SGOT) Alanine Aminotransferase 14 (ALT/SGPT) Alkaline Phosphatase 80 Total Creatine Kinase 32 Troponin I 0.05 B-Type Natriuretic Peptide 987 Total Protein 7.3 Albumin 2.5 Result Diagram: 09/15/16 0855 09/15/16 0855 Imaging Last Impressions Chest X-Ray 09/15/16 0850 Signed Impressions: Service Date/Time: Thursday, September 15, 2016 09:01 - CONCLUSION: No significant change. Bibasal opacities remain left greater than right with probable left effusion. Clovis Soliz MD Assessment and Plan Assessment and Plan 70-year-old male presenting with Acute on chronic systolic heart failure with history of cardiomyopathy with known ejection fraction of 25% status post AICD, Possible mild anoxic encephalopathy We'll give IV Lasix 40 mg every 12 monitor output Continue on cardiac meds will increase Coreg to 12.5 mg twice a day Continue on Eliquis Diabetes type 2 continue on insulin regimen chronic kidney disease. renal functions near baseline. FF on diuretics Hyponatremia- some chronicity to this. Monitor lytes on IV Lasix History of GI bleed in the past continue on PPI History of BPH continue Flomax Discussed at length with patient and sister Britney. Per sister Britney and brother- they are waiting for his grandson -from [place] - come and visit him discussed about his recurrent admissions- worsening clinical condition. CODE STATUS agrees to DO NOT RESUSCITATE We will consider palliative care consult in am to determine goals of care Code Status No code Physician Certification 2 Midnight Certification Type: Admission for Inpatient Services Order for Inpatient Services The services are ordered in accordance with Medicare regulations or non- Medicare payer requirements, as applicable. In the case of services not specified as inpatient-only, they are appropriately provided as inpatient services in accordance with the 2-midnight benchmark. Estimated LOS (days): 3 days is the estimated time the patient will need to remain in the hospital, assuming treatment plan goals are met and no additional complications. Post-Hospital Plan: Not yet determined Yung Olivarez MD September 15, 2016 16:53
[2016-09-15] MEDS: FUROSEMIDE 40 MG/4 ML VIAL IV PUSH SCH (17:10)
[2016-09-15] MEDS ORDERED: NON-FORMULARY DRUG (Brimonidine-Timolol Opth Drops (Combigan Opth Drops) 1 DROP) RIGHT EYE SCH (21:00)
[2016-09-15] MEDS ORDERED: CARVEDILOL 6.25 MG TAB PO SCH (21:00)
[2016-09-15] MEDS ORDERED: BRINZOLAMIDE RIGHT EYE SCH (21:00)
[2016-09-15] MEDS: ASCORBIC ACID 500 MG TAB PO SCH (21:50)
[2016-09-15] MEDS: DOCUSATE SODIUM 100 MG CAP PO SCH (21:50)
[2016-09-15] MEDS: CARVEDILOL 12.5 MG TAB PO SCH (21:51)
[2016-09-15] MEDS: PRAVASTATIN SOD 40 MG TAB PO SCH (21:51)
[2016-09-15] MEDS: BRIMONIDINE TARTRATE 0.2% OPHT SOLN 5 ML BTL RIGHT EYE SCH (22:29)
[2016-09-15] MEDS: TIMOLOL MALEATE 0.5% OPHT SOLN 5 ML BTL RIGHT EYE SCH (22:30)
[2016-09-15] MEDS: LATANOPROST 0.005% OPHT SOLN 2.5 ML BTL RIGHT EYE SCH (22:30)
--- NOTE | 2016-09-15 22:52 | HHI.PR ---
Addendum to Inpatient Note Addendum Reason: Additional Documentation Additional Information i was called by patient's nurse that pt's family is at bedside and wanted pt to be full code. pt is personally known to me from prior hospital admissions. I have discussed his code status with him and family on two separate occasions, and both are very clear that pt is full code status and wanted everything to be done though his clinical status is not improving. Palliative care team was also involved in previous admission and notes from them on 09/10/16 indicates he wishes to be full code. nurse discussion with family was also witnessed by charge nurse. Thus changed pt's code status to full code Amandeep Mary MD September 15, 2016 22:52
[2016-09-16] VITALS (10 sets, daily range): BP systolic 117–139; BP diastolic 53–65; PULSE 96–103; RESP 18–22; TEMP 97.4–98.2; O2SAT 91–98
[2016-09-16] MEDS: RESP: IPRATROPIUM 0.5 MG/2.5 ML NEB NEB SCH ×2 (04:56→08:02)
[2016-09-16] MEDS: LEVOTHYROXINE SODIUM 50 MCG TAB PO SCH (06:04)
[2016-09-16] MEDS: LOW DOSE INSULIN NOVOLOG SUPPLEMENTAL SCALE SQ SCH ×4 (06:06→21:01)
--- NOTE | 2016-09-16 08:20 | HHI.FPPN ---
Subjective Remarks MORE CONFUSED C/O ANXIEY C/O SOB AND AMADO DUE TO ANXIETY Objective Vitals Vital Signs Date Time Temp Pulse Resp B/P Pulse Ox O2 Delivery O2 Flow Rate FiO2 09/16/16 08:04 98 Nasal Cannula 2.00 09/16/16 08:00 97.7 100 22 122/53 92 09/16/16 04:00 Nasal Cannula 3.00 09/16/16 04:00 97.4 101 18 117/55 98 09/16/16 00:12 Nasal Cannula 3.00 09/16/16 00:00 97.6 103 20 139/63 95 09/15/16 21:08 97 Nasal Cannula 2.00 09/15/16 20:00 Nasal Cannula 3.00 09/15/16 20:00 98.1 104 18 121/59 97 09/15/16 19:51 107 09/15/16 17:00 97.6 104 22 119/60 99 09/15/16 16:40 109 09/15/16 15:55 97 Nasal Cannula 2.00 09/15/16 12:29 97.4 104 22 139/60 96 09/15/16 11:36 97.8 102 20 122/74 99 Nasal Cannula 3 09/15/16 10:46 97.8 101 20 121/68 97 Nasal Cannula 3 09/15/16 09:28 102 20 125/77 99 Nasal Cannula 3 09/15/16 08:50 97 Nasal Cannula 3 09/15/16 08:50 20 97 Nasal Cannula 3 09/15/16 08:43 101 20 97 Nasal Cannula 3 09/15/16 08:41 98.0 101 24 115/63 85 I/O 09/15/16 09/15/16 09/15/16 09/16/16 09/16/16 09/16/16 06:59 14:59 22:59 06:59 14:59 22:59 Intake Total 240 ml 480 ml 100 ml Output Total 1700 ml 1000 ml 500 ml Balance -1460 ml -520 ml -400 ml Intake Oral 240 ml 480 ml 100 ml Output Urine Total 1700 ml 1000 ml 500 ml # Voids 1 # Bowel Movements 0 0 0 Result Diagram: 09/15/16 0855 09/15/16 0855 Objective Remarks GENERAL: SKIN: Warm and dry. HEAD: Atraumatic. Normocephalic. EYES: Pupils equal and round. No scleral icterus. No injection or drainage. ENT: No nasal bleeding or discharge. Mucous membranes pink and moist. NECK: Trachea midline. No JVD. CARDIOVASCULAR: Regular rate and rhythm. RESPIRATORY: No accessory muscle use. Bilateral congestion and ronchi, R base crackles GASTROINTESTINAL: Abdomen soft, non-tender, nondistended. Hepatic and splenic margins not palpable. MUSCULOSKELETAL: Extremities without clubbing, cyanosis, or edema. No obvious deformities. NEUROLOGICAL: Awake and alert. No obvious cranial nerve deficits. Motor grossly within normal limits. 1 out of 5 muscle strength in the arms and legs. Normal speech. PSYCHIATRIC: Appropriate mood and affect; insight and judgment normal. Medications and IVs Current Medications Medications (Trade) Dose Ordered Sig/Jacek Route Start Time Stop Time Status Last Admin (NS Flush) 2 ml UNSCH PRN IVF 09/15/16 09:00 09/15/16 21:51 (Eliquis) 5 mg BID PO 09/15/16 10:30 09/15/16 21:51 (Vitamin C) 500 mg BID PO 09/15/16 21:00 09/15/16 21:50 (Colace) 100 mg BID PO 09/15/16 21:00 09/15/16 21:50 (Ferrous Sulfate) 325 mg DAILY PO 09/16/16 09:00 (Imdur) 30 mg DAILY PO 09/15/16 10:30 09/15/16 10:45 (Lactulose Liq) 30 ml DAILY PO 09/16/16 09:00 (Synthroid) 50 mcg DAILY@0600 PO 09/16/16 06:00 09/16/16 06:04 (Refresh Classic 1.4-0.6% Pf Opth Soln) 1 drop TID PRN EACH EYE 09/15/16 10:15 (Flomax) 0.4 mg DAILY PO 09/16/16 09:00 Patient Own Medication PT OWN MED: Azopt (Brinzolami... BID RIGHT EYE 09/15/16 21:00 Hold (Mag-Ox) 500 mg DAILY@11 PO 09/15/16 11:00 09/15/16 10:45 (Theragran) 1 tab DAILY PO 09/16/16 09:00 (Protonix) 20 mg DAILY PO 09/16/16 09:00 (Pravachol) 40 mg HS PO 09/15/16 21:00 09/15/16 21:51 (Xalatan 0.005% Opth Soln) 1 drop HS RIGHT EYE 09/15/16 21:00 09/15/16 22:30 (Pill Splitter) 1 ea UNSCH PRN OTHER 09/15/16 10:45 (Alphagan 0.2% Opth Soln) 1 drop Q12HR RIGHT EYE 09/15/16 21:00 09/15/16 22:29 (Timoptic 0.5% Opth Soln) 1 drop Q12HR RIGHT EYE 09/15/16 21:00 09/15/16 22:30 (D50w (Vial) Inj) 25 ml UNSCH PRN IV PUSH 09/15/16 11:30 (Glucagon Inj) 1 mg UNSCH PRN OTHER 09/15/16 11:30 (Coreg) 12.5 mg BID PO 09/15/16 21:00 09/15/16 21:51 (Lasix Inj) 40 mg BID@09,18 IV PUSH 09/15/16 18:00 09/15/16 17:10 A/P Assessment and Plan -Acute on chronic systolic heart failure with history of cardiomyopathy with known ejection fraction of 25% status post AICD, -Pleural effusion- consult pulm, diurese -Anoxic encephalopathy- Lasix 40 mg every 12 monitor output, Coreg 12.5 mg twice a day, Eliquis -Diabetes type 2 continue on insulin regimen -chronic kidney disease. renal functions near baseline. FF on diuretics -Hyponatremia- Monitor lytes on IV Lasix -History of GI bleed in the past continue on PPI -BPH- continue Flomax Srinivas Naylor MD September 16, 2016 08:20
[2016-09-16] MEDS: DOCUSATE SODIUM 100 MG CAP PO SCH ×2 (09:33→20:58)
[2016-09-16] MEDS: TAMSULOSIN HCL 0.4 MG CAP PO SCH (09:33)
[2016-09-16] MEDS: ISOSORBIDE MONONITRATE 30 MG TAB PO SCH (09:33)
[2016-09-16] MEDS: PANTOPRAZOLE SOD 20 MG DELAYED RELEASE TAB PO SCH (09:33)
[2016-09-16] MEDS: MULTIVITAMIN TAB PO SCH (09:33)
[2016-09-16] MEDS: LACTULOSE SYRUP 20 GM/30 ML CUP PO SCH (09:33)
[2016-09-16] MEDS: FERROUS SULFATE 325 MG (65 MG ELEMENTAL IRON) TAB PO SCH (09:33)
[2016-09-16] MEDS: APIXABAN 5 MG TABLET PO SCH ×2 (09:33→20:58)
[2016-09-16] MEDS: ASCORBIC ACID 500 MG TAB PO SCH ×2 (09:33→20:58)
[2016-09-16] MEDS: CARVEDILOL 12.5 MG TAB PO SCH ×2 (09:33→20:56)
[2016-09-16] MEDS: TIMOLOL MALEATE 0.5% OPHT SOLN 5 ML BTL RIGHT EYE SCH ×2 (09:34→20:58)
[2016-09-16] MEDS: FUROSEMIDE 40 MG/4 ML VIAL IV PUSH SCH ×2 (09:34→17:34)
[2016-09-16] MEDS: BRIMONIDINE TARTRATE 0.2% OPHT SOLN 5 ML BTL RIGHT EYE SCH ×2 (09:34→20:59)
--- NOTE | 2016-09-16 11:30 | EKG ---
Date Performed: 09/15/2016 Time Performed: 08:44:13 PTAGE: 70 years EKG: ELECTRONIC VENTRICULAR PACEMAKER ABNORMAL RHYTHM ECG NO PREVIOUS TRACING DOCTOR: Pan Delgadillo Interpretating Date/Time 09/16/2016 11:22:59
[2016-09-16] MEDS: MAGNESIUM OXIDE 400 MG TAB PO SCH (11:49)
[2016-09-16] MEDS: ACETAMINOPHEN 325 MG TAB PO PRN ×2 (14:31→18:38)
[2016-09-16] MEDS: LORazepam 0.5 MG TAB PO PRN ×2 (14:31→20:58)
[2016-09-16] MEDS: RESP: ALBUTEROL 2.5 MG/IPRATROPIUM 0.5 MG NEB (SCH) NEB ×2 (16:13→20:19)
[2016-09-16 17:06] LABS: BLOOD GAS BASE EXCESS 12.5 mmol/L (-2-2); BLOOD GAS CARBOXYHEMOGLOBIN 2.1 % (0-4); BLOOD GAS HCO3 39 mmol/L (22-26); BLOOD GAS METHEMOGLOBIN 0.7 % (0-2); BLOOD GAS O2 HGB SATURATION 92 % (90-100); BLOOD GAS OXYGEN CONTENT 12.7 Vol % (12.0-20.0); BLOOD GAS PCO2 81 mmHg (38-42); BLOOD GAS PO2 80 mmHg (61-120); BLOOD GAS TOTAL HGB 9.7 G/DL (12.0-16.0); TEMP CORR TO 98.6
[2016-09-16 17:08] LABS: CRITICAL VALUE YES; DRAW SITE RT RADIAL; LITER FLOW 2 L/M; NUMBER OF ARTERIAL PUNCTURES 1; OXYGEN DEVICE NASAL CANNULA; STAT NO; ULNAR PULSE PRESENT
--- NOTE | 2016-09-16 20:37 | RADRPT ---
EXAM DATE/TIME: 09/16/2016 19:49 [place] COMPARISON: No previous studies available for comparison. INDICATIONS : Left pleural effusion. MEDICAL HISTORY : Myocardial infarction. Congestive heart failure. Hypercholesterolemia. Thyroid disease. Numbness. Kylee st pain. COPD. Pulmonary edema. Dyspena. GI Bleed. Hiatal hernia. Renal failure. Arthritis. Type II D iabetes. Anticoagulant therapy, Aspirin and Eliquis. SURGICAL HISTORY : Pacemaker. CABG. Ear surgery. Left toe amputation. ENCOUNTER: Initial ACUITY: 2 days PAIN SCORE: 5/10 LOCATION: Left chest MEASUREMENTS: SKIN TO PARIETAL PLEURA: 2.3 cm SKIN TO MAX SAFE DEPTH: 3.9 cm ESTIMATED FLUID VOLUME: 658 cc FLUID COMPOSITION: simple FINDINGS: Pleural effusion as above. A pranav was placed on the skin surface superficial to the pleural fluid col lection. CONCLUSION: Moderate left pleural effusion marked for thoracentesis. Scott Leblanc MD on September 16, 2016 at 20:34 Board Certified Radiologist. This report was verified electronically.
[2016-09-16] MEDS: SODIUM CHLORIDE 0.9% FLUSH 10 ML FLUSH IVF PRN (20:56)
[2016-09-16] MEDS: methylPREDNISolone SOD SUCC 40 MG/1 ML VIAL IV SCH (20:57)
[2016-09-16] MEDS: AZITHROMYCIN INJ 500 MG in SODIUM CHLOR 0.9% 250 ML INJ 250 ML IV SCH (20:57)
[2016-09-16] MEDS: PRAVASTATIN SOD 40 MG TAB PO SCH (20:58)
[2016-09-16] MEDS: LATANOPROST 0.005% OPHT SOLN 2.5 ML BTL RIGHT EYE SCH (20:59)
[2016-09-17] VITALS (9 sets, daily range): BP systolic 102–133; BP diastolic 55–68; PULSE 75–103; RESP 18–20; TEMP 97.2–98; O2SAT 90–97
[2016-09-17] MEDS: methylPREDNISolone SOD SUCC 40 MG/1 ML VIAL IV SCH ×3 (04:56→21:47)
[2016-09-17] MEDS: LEVOTHYROXINE SODIUM 50 MCG TAB PO SCH (05:00)
[2016-09-17] MEDS: LOW DOSE INSULIN NOVOLOG SUPPLEMENTAL SCALE SQ SCH ×4 (06:06→21:46)
[2016-09-17 07:20] LABS: BASOPHIL % 0.3 % (0.0-2.0); HEMO FLAGS DIFF FINAL; LYMPH % 6.2 % (9.0-44.0); LYMPHOCYTE # 0.4 TH/MM3 (1.0-4.8); MEAN CELL VOLUME 94.7 FL (80.0-100.0); MEAN CORPUSCULAR HEMOGLOBIN 30.1 PG (27.0-34.0); MEAN CORPUSCULAR HGB CONC 31.8 % (32.0-36.0); MONO % 1.3 % (0.0-8.0); NEUT % 92.2 % (16.0-70.0); PLATELET COUNT 291 TH/MM3 (150-450); RED BLOOD COUNT 3.27 MIL/MM3 (4.50-5.90); RED CELL DISTRIBUTION WIDTH 16.8 % (11.6-17.2); WHITE BLOOD COUNT 6.5 TH/MM3 (4.0-11.0)
--- NOTE | 2016-09-17 07:24 | MB ---
cc: CALLY CORADO DATE OF CONSULTATION 09/16/2016 REASON FOR CONSULTATION Hypoxia and pulmonary edema. HISTORY OF PRESENT ILLNESS This is a 70-year-old white male with a past history of cardiomyopathy and ejection fraction of 25%, as well as diabetes and chronic kidney disease who was admitted with shortness of breath, wheezing and hypercapnia. The patient has been placed on oxygen via nasal cannula at two liters and was orthopneic, but following admission he has improved some with diuresis. Chest x-ray done upon admission showed evidence of pulmonary edema. He was also having some cough and was orthopneic, but denies hemoptysis. He did have some mild leg swelling. There was no history of chest pain. PAST HISTORY The patient's past history is significant for: 1. Hypertension 2. Diabetes mellitus and chronic kidney disease 3. History of AICD pacer placement. 4. He has had a history of prostatic hypertrophy. 5. He also has had pulmonary hypertension. 6. History of chronic obstructive pulmonary disease 7. History of GI bleeding with diverticulosis. 8. The patient did have a history for cardiac arrest in July. PAST SURGICAL HISTORY No significant history of surgery in the past. HABITS The patient was a smoker of half to one-pack per day for over 40 years and quit four years ago. No significant alcohol use. He lives at the senior care. ALLERGIES SULFA AND IVP DYE FAMILY HISTORY Noncontributory REVIEW OF SYSTEMS The patient has lost weight. He has arthritis. He has trouble ambulating and dizzy attacks. He has postnasal drip. He has wheezing and he has epigastric distress and reflux. He has urinary frequency. He has joint pains in his extremities. He has anxiety and depression. Denies any skin lesions. PHYSICAL EXAMINATION This elderly averagely built white male is alert, pale and mildly dyspneic at rest. VITAL SIGNS: His blood pressure 130/70, pulse is 102, respirations are 28, temperature 97.5. HEENT: Head normocephalic. Pupils are reactive. Tongue dry. Throat was clear. Nasal mucosa injected. NECK: Supple. No bruits. Mild venous distension. Trachea midline. CHEST: Equal movements with an increased AP diameter, diffuse wheezes throughout both lung hobson. Prolonged expirations and occasional basilar crackles. HEART: The heart sounds are regular S1-S2 with apical systolic murmur 2 x 6. ABDOMEN: Soft and protuberant without masses. No organomegaly or tenderness. Bowel sounds are active. EXTREMITIES: Edema 1+ with decreased pulses. There is no clubbing, decreased peripheral pulses. Reflexes are 1+ with no gross motor deficits. NEUROLOGIC: Cranial nerves grossly intact. RECTAL: Exam is deferred. SKIN: Cool and dry. IMPRESSION 1. Congestive heart failure with acute exacerbation 2. Cardiomyopathy 3. History of diabetes mellitus 4. Chronic obstructive pulmonary disease with emphysema 5. Respiratory failure, chronic 6. History of prostatic hypertrophy PLAN The patient will be maintained on O2 at two liters. A blood gas study will be ordered. The patient will be placed on antibiotic coverage for an exacerbation of his bronchitis, as well as on Solu-Medrol 40 mg every 8 hours. We will continue with diuretic therapy as ordered. A follow up chest x-ray to be done and BiPap will be used at night to help improve his hypercapnia. Thank you Dr. Naylor for this consultation. MD JOVANI Colindres/YOVANA /7:25 PM /7:15 AM
[2016-09-17] MEDS: RESP: ALBUTEROL 2.5 MG/IPRATROPIUM 0.5 MG NEB (SCH) NEB ×4 (07:28→20:15)
[2016-09-17 08:02] LABS: BICARBONATE 38.4 MEQ/L (21.0-32.0); POTASSIUM 5.2 MEQ/L (3.5-5.1)
[2016-09-17] MEDS: ISOSORBIDE MONONITRATE 30 MG TAB PO SCH (09:49)
[2016-09-17] MEDS: CARVEDILOL 12.5 MG TAB PO SCH ×2 (09:50→21:48)
[2016-09-17] MEDS: APIXABAN 5 MG TABLET PO SCH ×2 (09:50→21:48)
[2016-09-17] MEDS: DOCUSATE SODIUM 100 MG CAP PO SCH ×2 (09:50→21:48)
[2016-09-17] MEDS: ASCORBIC ACID 500 MG TAB PO SCH ×2 (09:50→21:48)
[2016-09-17] MEDS: PANTOPRAZOLE SOD 20 MG DELAYED RELEASE TAB PO SCH (09:50)
[2016-09-17] MEDS: LACTULOSE SYRUP 20 GM/30 ML CUP PO SCH (09:50)
[2016-09-17] MEDS: FUROSEMIDE 40 MG/4 ML VIAL IV PUSH SCH ×2 (09:50→16:50)
[2016-09-17] MEDS: FERROUS SULFATE 325 MG (65 MG ELEMENTAL IRON) TAB PO SCH (09:50)
[2016-09-17] MEDS: TAMSULOSIN HCL 0.4 MG CAP PO SCH (09:50)
[2016-09-17] MEDS: MULTIVITAMIN TAB PO SCH (09:50)
[2016-09-17] MEDS: BRIMONIDINE TARTRATE 0.2% OPHT SOLN 5 ML BTL RIGHT EYE SCH ×2 (09:51→22:05)
[2016-09-17] MEDS: TIMOLOL MALEATE 0.5% OPHT SOLN 5 ML BTL RIGHT EYE SCH ×2 (09:51→22:04)
--- NOTE | 2016-09-17 10:43 | HHI.FPPN ---
Subjective Remarks C/O HEEL PAIN D/W RN C/O COUGH C/O INCR WEAKNESS Objective Vitals Vital Signs Date Time Temp Pulse Resp B/P Pulse Ox O2 Delivery O2 Flow Rate FiO2 09/17/16 07:31 93 Nasal Cannula 3.00 09/17/16 06:22 97.5 98 20 130/60 90 09/17/16 06:08 Nasal Cannula 2.00 09/17/16 04:00 Bi-Pap 30 09/17/16 00:00 97.2 88 20 110/58 92 09/17/16 00:00 Bi-Pap 30 09/16/16 21:33 91 30 09/16/16 21:00 30 Bi-Pap 09/16/16 20:22 94 Nasal Cannula 2.00 09/16/16 20:09 99 09/16/16 20:00 97.5 98 20 120/65 94 09/16/16 20:00 Nasal Cannula 2.00 09/16/16 16:00 98.2 96 18 120/56 93 09/16/16 12:00 97.5 99 18 137/64 97 I/O 09/16/16 09/16/16 09/16/16 09/17/16 09/17/16 09/17/16 07:00 15:00 23:00 07:00 15:00 23:00 Intake Total 100 ml 360 ml 370 ml 0 ml Output Total 500 ml 400 ml 225 ml Balance -400 ml -40 ml 145 ml 0 ml Intake Oral 100 ml 360 ml 120 ml 0 ml IV Total 250 ml Output Urine Total 500 ml 400 ml 225 ml # Voids 0 # Bowel Movements 0 0 0 0 Result Diagram: 09/17/16 0500 09/17/16 0500 Objective Remarks GENERAL: SKIN: Warm and dry. HEAD: Atraumatic. Normocephalic. EYES: Pupils equal and round. No scleral icterus. No injection or drainage. ENT: No nasal bleeding or discharge. Mucous membranes pink and moist. NECK: Trachea midline. No JVD. CARDIOVASCULAR: Regular rate and rhythm. RESPIRATORY: No accessory muscle use. Bilateral congestion and ronchi, R base crackles GASTROINTESTINAL: Abdomen soft, non-tender, nondistended. Hepatic and splenic margins not palpable. MUSCULOSKELETAL: Extremities without clubbing, cyanosis, or edema. No obvious deformities. NEUROLOGICAL: Awake and alert. No obvious cranial nerve deficits. Motor grossly within normal limits. 1 out of 5 muscle strength in the arms and legs. Normal speech. PSYCHIATRIC: Appropriate mood and affect; insight and judgment normal. Medications and IVs Current Medications Medications (Trade) Dose Ordered Sig/Jacek Route Start Time Stop Time Status Last Admin (NS Flush) 2 ml UNSCH PRN IVF 09/15/16 09:00 09/16/16 20:56 (Eliquis) 5 mg BID PO 09/15/16 10:30 09/17/16 09:50 (Vitamin C) 500 mg BID PO 09/15/16 21:00 09/17/16 09:50 (Colace) 100 mg BID PO 09/15/16 21:00 09/17/16 09:50 (Ferrous Sulfate) 325 mg DAILY PO 09/16/16 09:00 09/17/16 09:50 (Imdur) 30 mg DAILY PO 09/15/16 10:30 09/17/16 09:49 (Lactulose Liq) 30 ml DAILY PO 09/16/16 09:00 09/17/16 09:50 (Synthroid) 50 mcg DAILY@0600 PO 09/16/16 06:00 09/17/16 05:00 (Refresh Classic 1.4-0.6% Pf Opth Soln) 1 drop TID PRN EACH EYE 09/15/16 10:15 (Flomax) 0.4 mg DAILY PO 09/16/16 09:00 09/17/16 09:50 Patient Own Medication PT OWN MED: Azopt (Brinzolami... BID RIGHT EYE 09/15/16 21:00 Hold (Mag-Ox) 500 mg DAILY@11 PO 09/15/16 11:00 09/16/16 11:49 (Theragran) 1 tab DAILY PO 09/16/16 09:00 09/17/16 09:50 (Protonix) 20 mg DAILY PO 09/16/16 09:00 09/17/16 09:50 (Pravachol) 40 mg HS PO 09/15/16 21:00 09/16/16 20:58 (Xalatan 0.005% Opth Soln) 1 drop HS RIGHT EYE 09/15/16 21:00 09/16/16 20:59 (Pill Splitter) 1 ea UNSCH PRN OTHER 09/15/16 10:45 (Alphagan 0.2% Opth Soln) 1 drop Q12HR RIGHT EYE 09/15/16 21:00 09/17/16 09:51 (Timoptic 0.5% Opth Soln) 1 drop Q12HR RIGHT EYE 09/15/16 21:00 09/17/16 09:51 (D50w (Vial) Inj) 25 ml UNSCH PRN IV PUSH 09/15/16 11:30 (Glucagon Inj) 1 mg UNSCH PRN OTHER 09/15/16 11:30 (Coreg) 12.5 mg BID PO 09/15/16 21:00 09/17/16 09:50 (Lasix Inj) 40 mg BID@,18 IV PUSH 09/15/16 18:00 09/17/16 09:50 (Tylenol) 650 mg Q4H PRN PO 09/16/16 14:30 09/16/16 18:38 (Ativan) 0.5 mg Q6H PRN PO 09/16/16 14:30 09/16/16 20:58 Methylprednisolone Sodium Succinate 40 mg 40 mg Q8H IV 09/16/16 20:00 09/17/16 04:56 (Zithromax Inj/ NS 250 ml Inj) 250 ml @ 250 mls/hr Q24H IV 09/16/16 20:00 09/16/16 20:57 A/P Assessment and Plan -Acute on chronic systolic heart failure with history of cardiomyopathy with known ejection fraction of 25% status post AICD, -Pleural effusion- consult pulm, diurese -Anoxic encephalopathy- Lasix 40 mg every 12 monitor output, Coreg 12.5 mg twice a day, Eliquis -Diabetes type 2 continue on insulin regimen -chronic kidney disease. renal functions near baseline. FF on diuretics -Hyponatremia- Monitor lytes on IV Lasix -Hyperkalemia, dc mvi, recheck k in am -History of GI bleed in the past continue on PPI -BPH- continue Flomax Srinivas Naylor MD September 17, 2016 10:43
[2016-09-17] MEDS: MAGNESIUM OXIDE 400 MG TAB PO SCH (11:39)
[2016-09-17] MEDS: ACETAMINOPHEN 325 MG TAB PO PRN ×2 (16:50→21:49)
--- NOTE | 2016-09-17 18:20 | HHI.PR ---
Subjective Remarks Has some wheezing and Orthopnea. ABG's show Hypercapnea. Better today. Ultrasound shows a moderate left Effusion. Objective Vital Signs Date Time Temp Pulse Resp B/P Pulse Ox O2 Delivery O2 Flow Rate FiO2 09/17/16 16:00 98.0 75 18 102/68 94 09/17/16 12:00 97.5 99 20 129/62 96 09/17/16 08:00 Nasal Cannula 2.50 09/17/16 08:00 97.5 95 18 133/61 97 09/17/16 08:00 103 09/17/16 07:31 93 Nasal Cannula 3.00 09/17/16 06:22 97.5 98 20 130/60 90 09/17/16 06:08 Nasal Cannula 2.00 09/17/16 04:00 Bi-Pap 30 09/17/16 00:00 97.2 88 20 110/58 92 09/17/16 00:00 Bi-Pap 30 09/16/16 21:33 91 30 09/16/16 21:00 30 Bi-Pap 09/16/16 20:22 94 Nasal Cannula 2.00 09/16/16 20:09 99 09/16/16 20:00 97.5 98 20 120/65 94 09/16/16 20:00 Nasal Cannula 2.00 I/O 09/16/16 09/16/16 09/16/16 09/17/16 09/17/16 09/17/16 07:00 15:00 23:00 07:00 15:00 23:00 Intake Total 100 ml 360 ml 370 ml 0 ml 120 ml Output Total 500 ml 400 ml 225 ml 500 ml Balance -400 ml -40 ml 145 ml 0 ml -380 ml Intake Oral 100 ml 360 ml 120 ml 0 ml 120 ml IV Total 250 ml Output Urine Total 500 ml 400 ml 225 ml 500 ml # Voids 0 # Bowel Movements 0 0 0 0 1 Result Diagram: 09/17/16 0500 09/17/16 0500 Objective Remarks This elderly averagely built white male is alert, pale and dyspneic at rest. HEENT: Head normocephalic. Pupils are reactive. Tongue dry. Throat was clear. Nasal mucosa clear NECK: Supple. No bruits. Mild venous distension. Trachea midline. CHEST: Equal movements with an increased AP diameter, diffuse wheezes throughout both lung hobson. Prolonged expirations and occasional basilar crackles. decreased breath sounds left chest HEART: The heart sounds are regular S1-S2 with apical systolic murmur 2 x 6. ABDOMEN: Soft and protuberant without masses. No organomegaly or tenderness. Bowel sounds are active. EXTREMITIES: Edema 1+ with decreased pulses. There is no clubbing, decreased peripheral pulses. Reflexes are 1+ with no gross motor deficits. NEUROLOGIC: Cranial nerves grossly intact. RECTAL: Exam is deferred. SKIN: Cool and dry. Assessment and Plan Assessment and Plan IMPRESSION 1. Congestive heart failure with acute exacerbation 2. Cardiomyopathy 3. History of diabetes mellitus 4. Chronic obstructive pulmonary disease with emphysema 5. Respiratory failure, chronic 6. History of prostatic hypertrophy Plan : 1. Will do thoracentesis on left. 2. Continue nebs qid , duoneb. 3. Bipap at HS 12/5 cm , FIo2 30 %. 4. Hold anticoagulants. 5. Continue Diuretic daily. 6. Continue Zithromax and Solumedrol Elder Wiggins MD September 17, 2016 18:20
[2016-09-17] MEDS: AZITHROMYCIN INJ 500 MG in SODIUM CHLOR 0.9% 250 ML INJ 250 ML IV SCH (21:47)
[2016-09-17] MEDS: PRAVASTATIN SOD 40 MG TAB PO SCH (21:48)
[2016-09-17] MEDS: LORazepam 0.5 MG TAB PO PRN (22:01)
[2016-09-17] MEDS: LATANOPROST 0.005% OPHT SOLN 2.5 ML BTL RIGHT EYE SCH (22:04)
[2016-09-18] VITALS (11 sets, daily range): BP systolic 93–140; BP diastolic 51–66; PULSE 88–99; RESP 18–20; TEMP 96.4–98.1; O2SAT 92–97
[2016-09-18] MEDS: methylPREDNISolone SOD SUCC 40 MG/1 ML VIAL IV SCH ×2 (04:26→11:38)
[2016-09-18] MEDS: LOW DOSE INSULIN NOVOLOG SUPPLEMENTAL SCALE SQ SCH ×4 (06:06→21:00)
[2016-09-18] MEDS: LEVOTHYROXINE SODIUM 50 MCG TAB PO SCH (06:08)
[2016-09-18] MEDS: ACETAMINOPHEN 325 MG TAB PO PRN (06:08)
--- NOTE | 2016-09-18 07:43 | RADRPT ---
EXAM DATE/TIME: 09/18/2016 06:17 [facility] COMPARISON: CHEST SINGLE AP, September 15, 2016, 9:01. INDICATIONS : Effusion. MEDICAL HISTORY : Congestive heart failure. Renal failure, chronic. Diabetes mellitus type I. SURGICAL HISTORY : None. ENCOUNTER: Subsequent ACUITY: 4 - 6 days PAIN SCORE: Non-responsive. LOCATION: Bilateral chest FINDINGS: A single view of the chest demonstrates cardiomegaly with pulmonary edema and small pleural effusions . Previous CABG. Left-sided defibrillator. Osseous structures are intact. CONCLUSION: Cardiomegaly with pulmonary edema and worsening CHF. Osbaldo Abebe MD on September 18, 2016 at 7:40 Board Certified Radiologist. This report was verified electronically.
[2016-09-18] MEDS: RESP: ALBUTEROL 2.5 MG/IPRATROPIUM 0.5 MG NEB (SCH) NEB ×4 (08:36→19:01)
[2016-09-18 09:00] LABS: AUTOMATED NEUTROPHIL # 5.2 TH/MM3 (1.8-7.7); BASOPHIL % 0.2 % (0.0-2.0); HEMATOCRIT 31.2 % (39.0-51.0); HEMO FLAGS DIFF FINAL; LYMPH % 6.2 % (9.0-44.0); LYMPHOCYTE # 0.4 TH/MM3 (1.0-4.8); MEAN CELL VOLUME 96.1 FL (80.0-100.0); MEAN CORPUSCULAR HEMOGLOBIN 31.2 PG (27.0-34.0); MEAN CORPUSCULAR HGB CONC 32.4 % (32.0-36.0); MONO % 3.7 % (0.0-8.0); NEUT % 89.9 % (16.0-70.0); PLATELET COUNT 378 TH/MM3 (150-450); RED BLOOD COUNT 3.24 MIL/MM3 (4.50-5.90); RED CELL DISTRIBUTION WIDTH 17.1 % (11.6-17.2); WHITE BLOOD COUNT 5.8 TH/MM3 (4.0-11.0)
[2016-09-18] MEDS: BRIMONIDINE TARTRATE 0.2% OPHT SOLN 5 ML BTL RIGHT EYE SCH ×2 (09:00→21:02)
[2016-09-18] MEDS: DOCUSATE SODIUM 100 MG CAP PO SCH ×2 (09:00→21:01)
[2016-09-18] MEDS: TIMOLOL MALEATE 0.5% OPHT SOLN 5 ML BTL RIGHT EYE SCH ×2 (09:00→21:02)
[2016-09-18] MEDS: ASCORBIC ACID 500 MG TAB PO SCH ×2 (09:27→21:00)
[2016-09-18] MEDS: PANTOPRAZOLE SOD 20 MG DELAYED RELEASE TAB PO SCH (09:27)
[2016-09-18] MEDS: LACTULOSE SYRUP 20 GM/30 ML CUP PO SCH (09:27)
[2016-09-18] MEDS: TAMSULOSIN HCL 0.4 MG CAP PO SCH (09:27)
[2016-09-18] MEDS: APIXABAN 5 MG TABLET PO SCH (09:27)
[2016-09-18] MEDS: CARVEDILOL 12.5 MG TAB PO SCH ×2 (09:28→21:01)
[2016-09-18] MEDS: FERROUS SULFATE 325 MG (65 MG ELEMENTAL IRON) TAB PO SCH (09:28)
[2016-09-18] MEDS: ISOSORBIDE MONONITRATE 30 MG TAB PO SCH (09:29)
[2016-09-18] MEDS: FUROSEMIDE 40 MG/4 ML VIAL IV PUSH SCH (09:29)
[2016-09-18 09:40] LABS: BICARBONATE 42.3 MEQ/L (21.0-32.0); POTASSIUM 5.5 MEQ/L (3.5-5.1)
--- NOTE | 2016-09-18 10:08 | HHI.FPPN ---
Subjective Remarks C/O SOB C/O COUGH D/W RN VERY WEAK AND SLOW TO RESPOND Objective Vitals Vital Signs Date Time Temp Pulse Resp B/P Pulse Ox O2 Delivery O2 Flow Rate FiO2 09/18/16 09:25 114/57 09/18/16 08:36 94 Nasal Cannula 3.00 09/18/16 08:04 97.9 89 20 103/51 96 09/18/16 04:00 96.4 95 18 106/54 97 09/18/16 00:00 97.4 88 18 93/51 92 09/17/16 20:17 92 Nasal Cannula 3.00 09/17/16 20:15 Nasal Cannula 3.00 09/17/16 20:00 97.6 94 18 113/55 94 09/17/16 19:36 94 09/17/16 16:00 98.0 75 18 102/68 94 09/17/16 12:00 97.5 99 20 129/62 96 I/O 09/17/16 09/17/16 09/17/16 09/18/16 09/18/16 09/18/16 07:00 15:00 23:00 07:00 15:00 23:00 Intake Total 0 ml 120 ml 120 ml 0 ml Output Total 500 ml 300 ml 350 ml Balance 0 ml -380 ml -180 ml -350 ml Intake Oral 0 ml 120 ml 120 ml 0 ml Output Urine Total 500 ml 300 ml 350 ml # Voids 0 1 # Bowel Movements 0 1 Result Diagram: 09/18/1682309/18/1624 Objective Remarks GENERAL: SKIN: Warm and dry. HEAD: Atraumatic. Normocephalic. EYES: Pupils equal and round. No scleral icterus. No injection or drainage. ENT: No nasal bleeding or discharge. Mucous membranes pink and moist. NECK: Trachea midline. No JVD. CARDIOVASCULAR: Regular rate and rhythm. RESPIRATORY: No accessory muscle use. Bilateral congestion and ronchi, R base crackles GASTROINTESTINAL: Abdomen soft, non-tender, nondistended. Hepatic and splenic margins not palpable. MUSCULOSKELETAL: Extremities without clubbing, cyanosis, or edema. No obvious deformities. NEUROLOGICAL: Awake and alert. No obvious cranial nerve deficits. Motor grossly within normal limits. 1 out of 5 muscle strength in the arms and legs. Normal speech. PSYCHIATRIC: Appropriate mood and affect; insight and judgment normal. Medications and IVs Current Medications Medications (Trade) Dose Ordered Sig/Jacek Route Start Time Stop Time Status Last Admin (NS Flush) 2 ml UNSCH PRN IVF 09/15/16 09:00 09/16/16 20:56 (Eliquis) 5 mg BID PO 09/15/16 10:30 09/18/16 09:27 (Vitamin C) 500 mg BID PO 09/15/16 21:00 09/18/16 09:27 (Colace) 100 mg BID PO 09/15/16 21:00 09/18/16 09:00 (Ferrous Sulfate) 325 mg DAILY PO 09/16/16 09:00 09/18/16 09:28 (Imdur) 30 mg DAILY PO 09/15/16 10:30 09/18/16 09:29 (Lactulose Liq) 30 ml DAILY PO 09/16/16 09:00 09/18/16 09:27 (Synthroid) 50 mcg DAILY@0600 PO 09/16/16 06:00 09/18/16 06:08 (Refresh Classic 1.4-0.6% Pf Opth Soln) 1 drop TID PRN EACH EYE 09/15/16 10:15 (Flomax) 0.4 mg DAILY PO 09/16/16 09:00 09/18/16 09:27 Patient Own Medication PT OWN MED: Azopt (Brinzolami... BID RIGHT EYE 09/15/16 21:00 Hold (Mag-Ox) 500 mg DAILY@11 PO 09/15/16 11:00 09/17/16 11:39 (Protonix) 20 mg DAILY PO 09/16/16 09:00 09/18/16 09:27 (Pravachol) 40 mg HS PO 09/15/16 21:00 09/17/16 21:48 (Xalatan 0.005% Opth Soln) 1 drop HS RIGHT EYE 09/15/16 21:00 09/17/16 22:04 (Pill Splitter) 1 ea UNSCH PRN OTHER 09/15/16 10:45 (Alphagan 0.2% Opth Soln) 1 drop Q12HR RIGHT EYE 09/15/16 21:00 09/18/16 09:00 (Timoptic 0.5% Opth Soln) 1 drop Q12HR RIGHT EYE 09/15/16 21:00 09/18/16 09:00 (D50w (Vial) Inj) 25 ml UNSCH PRN IV PUSH 09/15/16 11:30 (Glucagon Inj) 1 mg UNSCH PRN OTHER 09/15/16 11:30 (Coreg) 12.5 mg BID PO 09/15/16 21:00 09/18/16 09:28 (Lasix Inj) 40 mg BID@09,18 IV PUSH 09/15/16 18:00 09/18/16 09:29 (Tylenol) 650 mg Q4H PRN PO 09/16/16 14:30 09/18/16 06:08 (Ativan) 0.5 mg Q6H PRN PO 09/16/16 14:30 09/17/16 22:01 Methylprednisolone Sodium Succinate 40 mg 40 mg Q8H IV 09/16/16 20:00 09/18/16 04:26 (Zithromax Inj/ NS 250 ml Inj) 250 ml @ 250 mls/hr Q24H IV 09/16/16 20:00 09/17/16 21:47 A/P Assessment and Plan -Acute on chronic systolic heart failure with history of cardiomyopathy with known ejection fraction of 25% status post AICD, -Pleural effusion- consult pulm, diurese, thoracentesis today, -Anoxic encephalopathy- Lasix 40 mg every 12 monitor output, Coreg 12.5 mg twice a day, Eliquis -Diabetes type 2 continue on insulin regimen -SIXTO: Hold diuretics, am labs -chronic kidney disease. -Hyponatremia- Monitor lytes on IV Lasix -Hyperkalemia: kayexelate x one, recheck K -History of GI bleed in the past continue on PPI -BPH- continue Flomax Srinivas Naylor MD September 18, 2016 10:08
[2016-09-18] MEDS ORDERED: SODIUM POLYSTYRENE SULFONATE SUSP 15 GM/60 ML CUP PO ONE (10:15)
[2016-09-18] MEDS: MAGNESIUM OXIDE 400 MG TAB PO SCH (11:38)
--- NOTE | 2016-09-18 20:08 | HHI.PR ---
Subjective Remarks Has some wheezing and cough. Better today. Ultrasound shows a moderate left Effusion. Will do Thoracentesis and hold Eliquis Objective Vital Signs Date Time Temp Pulse Resp B/P Pulse Ox O2 Delivery O2 Flow Rate FiO2 09/18/16 16:04 97.7 88 20 112/60 96 09/18/16 15:21 95 Nasal Cannula 3.00 09/18/16 12:04 97.7 94 20 110/62 95 09/18/16 09:25 114/57 09/18/16 09:00 Nasal Cannula 3.00 09/18/16 08:36 94 Nasal Cannula 3.00 09/18/16 08:04 97.9 89 20 103/51 96 09/18/16 08:00 90 09/18/16 04:00 96.4 95 18 106/54 97 09/18/16 00:00 97.4 88 18 93/51 92 09/17/16 20:17 92 Nasal Cannula 3.00 09/17/16 20:15 Nasal Cannula 3.00 I/O 09/17/16 09/17/16 09/17/16 09/18/16 09/18/16 09/18/16 07:00 15:00 23:00 07:00 15:00 23:00 Intake Total 0 ml 120 ml 120 ml 0 ml 280 ml Output Total 500 ml 300 ml 350 ml 600 ml Balance 0 ml -380 ml -180 ml -350 ml -320 ml Intake Oral 0 ml 120 ml 120 ml 0 ml 280 ml Output Urine Total 500 ml 300 ml 350 ml 600 ml # Voids 0 1 # Bowel Movements 0 1 0 Result Diagram: 09/18/1682309/18/16823 Objective Remarks This elderly averagely built white male is alert, pale and dyspneic at rest. HEENT: Head normocephalic. Pupils are reactive. Tongue dry. Throat was clear. Nasal mucosa clear NECK: Supple. No bruits. Mild venous distension. Trachea midline. CHEST: Equal movements with an increased AP diameter, diffuse wheezes throughout both lung hobson. Prolonged expirations and occasional basilar crackles. decreased breath sounds left chest HEART: The heart sounds are regular S1-S2 with apical systolic murmur 2 x 6. ABDOMEN: Soft and protuberant without masses. No organomegaly or tenderness. Bowel sounds are active. EXTREMITIES: Edema 1+ . There is no clubbing, decreased peripheral pulses. Reflexes are 1+ with no gross motor deficits. NEUROLOGIC: Cranial nerves grossly intact. RECTAL: Exam is deferred. SKIN: Cool and dry. Assessment and Plan Assessment and Plan IMPRESSION 1. Congestive heart failure with acute exacerbation 2. Cardiomyopathy 3. History of diabetes mellitus 4. Chronic obstructive pulmonary disease with emphysema 5. Respiratory failure, chronic 6. History of prostatic hypertrophy Plan : 1. Will do thoracentesis in am on left. 2. Continue nebs qid , duoneb. 3. Bipap at HS 12/5 cm , FIo2 30 %. 4. Hold anticoagulants. 5. Continue Diuretic daily. 6. Continue Zithromax. 7. CBC ,BMP in am Elder Wiggins MD September 18, 2016 20:08
[2016-09-18] MEDS: AZITHROMYCIN INJ 500 MG in SODIUM CHLOR 0.9% 250 ML INJ 250 ML IV SCH (20:57)
[2016-09-18] MEDS: PRAVASTATIN SOD 40 MG TAB PO SCH (21:00)
[2016-09-18] MEDS: LATANOPROST 0.005% OPHT SOLN 2.5 ML BTL RIGHT EYE SCH (21:02)
[2016-09-18] MEDS: SODIUM CHLORIDE 0.9% FLUSH 10 ML FLUSH IVF PRN (21:06)
[2016-09-19] VITALS (11 sets, daily range): BP systolic 111–145; BP diastolic 56–71; PULSE 92–100; RESP 17–19; TEMP 97.4–98; O2SAT 93–96
[2016-09-19] MEDS: LEVOTHYROXINE SODIUM 50 MCG TAB PO SCH (06:13)
[2016-09-19] MEDS: LOW DOSE INSULIN NOVOLOG SUPPLEMENTAL SCALE SQ SCH ×4 (06:13→22:03)
[2016-09-19 06:29] LABS: AUTOMATED NEUTROPHIL # 6.8 TH/MM3 (1.8-7.7); BASOPHIL % 0.2 % (0.0-2.0); HEMATOCRIT 31.8 % (39.0-51.0); HEMO FLAGS DIFF FINAL; LYMPH % 4.3 % (9.0-44.0); LYMPHOCYTE # 0.3 TH/MM3 (1.0-4.8); MEAN CELL VOLUME 95.4 FL (80.0-100.0); MEAN CORPUSCULAR HEMOGLOBIN 31.1 PG (27.0-34.0); MEAN CORPUSCULAR HGB CONC 32.6 % (32.0-36.0); MONO % 5.5 % (0.0-8.0); PLATELET COUNT 395 TH/MM3 (150-450); RED BLOOD COUNT 3.33 MIL/MM3 (4.50-5.90); RED CELL DISTRIBUTION WIDTH 17.6 % (11.6-17.2); WHITE BLOOD COUNT 7.5 TH/MM3 (4.0-11.0)
[2016-09-19 06:54] LABS: BICARBONATE 39.9 MEQ/L (21.0-32.0); POTASSIUM 5.2 MEQ/L (3.5-5.1)
[2016-09-19] MEDS: RESP: ALBUTEROL 2.5 MG/IPRATROPIUM 0.5 MG NEB (SCH) NEB ×4 (07:39→22:08)
[2016-09-19] MEDS: DOCUSATE SODIUM 100 MG CAP PO SCH ×2 (07:59→21:58)
[2016-09-19] MEDS: ISOSORBIDE MONONITRATE 30 MG TAB PO SCH (08:57)
[2016-09-19] MEDS: ASCORBIC ACID 500 MG TAB PO SCH ×2 (08:57→21:58)
[2016-09-19] MEDS: FERROUS SULFATE 325 MG (65 MG ELEMENTAL IRON) TAB PO SCH (08:57)
[2016-09-19] MEDS: ACETAMINOPHEN 325 MG TAB PO PRN (08:57)
[2016-09-19] MEDS: CARVEDILOL 12.5 MG TAB PO SCH ×2 (08:57→21:59)
[2016-09-19] MEDS: TAMSULOSIN HCL 0.4 MG CAP PO SCH (08:57)
[2016-09-19] MEDS: LACTULOSE SYRUP 20 GM/30 ML CUP PO SCH (08:57)
[2016-09-19] MEDS: PANTOPRAZOLE SOD 20 MG DELAYED RELEASE TAB PO SCH (08:57)
[2016-09-19] MEDS: LORazepam 0.5 MG TAB PO PRN (08:58)
[2016-09-19] MEDS: BRIMONIDINE TARTRATE 0.2% OPHT SOLN 5 ML BTL RIGHT EYE SCH ×2 (09:00→21:59)
[2016-09-19] MEDS: TIMOLOL MALEATE 0.5% OPHT SOLN 5 ML BTL RIGHT EYE SCH ×2 (09:00→21:59)
[2016-09-19] MEDS: methylPREDNISolone SOD SUCC 40 MG/1 ML VIAL IV SCH ×2 (09:01→21:58)
[2016-09-19] MEDS: MAGNESIUM OXIDE 400 MG TAB PO SCH (11:36)
[2016-09-19] MEDS ORDERED: HEPARIN SODIUM - IV 10,000 UNITS/10 ML VIAL ONE (12:30)
--- NOTE | 2016-09-19 13:05 | RADRPT ---
EXAM DATE/TIME: 09/19/2016 12:41 [facility] COMPARISON: CHEST SINGLE AP, September 18, 2016, 6:17. INDICATIONS : Post thoracentsis. MEDICAL HISTORY : Myocardial infarction. Chronic obstructive pulmonary disease. Congestive heart failure. Renal fa ilure, chronic. Diabetes mellitus type I. Afib. SURGICAL HISTORY : CABG. Pacemaker. Defibrillator. ENCOUNTER: Subsequent ACUITY: 1 day PAIN SCORE: 0/10 LOCATION: Right chest FINDINGS: A single view of the chest demonstrates cardiomegaly with improving perihilar edema. No pneumothorax. Previous median sternotomy and left-sided defibrillator. Osseous structures are intact. CONCLUSION: Cardiomegaly with improving pulmonary edema. No pneumothorax. Osbaldo Abebe MD on September 19, 2016 at 13:02 Board Certified Radiologist. This report was verified electronically.
[2016-09-19 13:24] LABS: TOTAL PROTEIN,PLEURAL FLUID 2.3 GM/DL
[2016-09-19 13:40] LABS: PLEURAL FLUID LYMPHS 43 %
--- NOTE | 2016-09-19 13:51 | HHI.FPPN ---
Subjective Remarks LETHARGIC S/P THORACENTESIS D/W RN Objective Vitals Vital Signs Date Time Temp Pulse Resp B/P Pulse Ox O2 Delivery O2 Flow Rate FiO2 09/19/16 12:04 97.7 92 19 111/59 93 09/19/16 09:24 96 09/19/16 08:04 97.7 97 19 145/69 94 09/19/16 07:41 95 Nasal Cannula 3.00 09/19/16 07:20 Nasal Cannula 3.00 09/19/16 04:00 97.4 100 18 117/71 96 09/19/16 00:00 98.0 98 17 118/56 93 09/18/16 20:23 99 09/18/16 20:15 Nasal Cannula 3.00 09/18/16 20:04 98.1 88 20 140/66 95 09/18/16 16:04 97.7 88 20 112/60 96 09/18/16 15:21 95 Nasal Cannula 3.00 I/O 09/18/16 09/18/16 09/18/16 09/19/16 09/19/16 09/19/16 06:59 14:59 22:59 06:59 14:59 22:59 Intake Total 0 ml 280 ml 200 ml 60 ml Output Total 350 ml 600 ml 500 ml 500 ml Balance -350 ml -320 ml -300 ml -440 ml Intake Oral 0 ml 280 ml 200 ml 60 ml Output Urine Total 350 ml 600 ml 500 ml 500 ml # Voids 1 # Bowel Movements 0 1 0 Result Diagram: 09/19/16 0511 09/19/16 0511 Objective Remarks GENERAL: SKIN: Warm and dry. HEAD: Atraumatic. Normocephalic. EYES: Pupils equal and round. No scleral icterus. No injection or drainage. ENT: No nasal bleeding or discharge. Mucous membranes pink and moist. NECK: Trachea midline. No JVD. CARDIOVASCULAR: Regular rate and rhythm. RESPIRATORY: No accessory muscle use. Bilateral congestion and ronchi, R base crackles GASTROINTESTINAL: Abdomen soft, non-tender, nondistended. Hepatic and splenic margins not palpable. MUSCULOSKELETAL: Extremities without clubbing, cyanosis, or edema. No obvious deformities. NEUROLOGICAL: Awake and alert. No obvious cranial nerve deficits. Motor grossly within normal limits. 1 out of 5 muscle strength in the arms and legs. Normal speech. PSYCHIATRIC: Appropriate mood and affect; insight and judgment normal. Medications and IVs Current Medications Medications (Trade) Dose Ordered Sig/Jacek Route Start Time Stop Time Status Last Admin (NS Flush) 2 ml UNSCH PRN IVF 09/15/16 09:00 09/18/16 21:06 (Vitamin C) 500 mg BID PO 09/15/16 21:00 09/19/16 08:57 (Colace) 100 mg BID PO 09/15/16 21:00 09/18/16 21:01 (Ferrous Sulfate) 325 mg DAILY PO 09/16/16 09:00 09/19/16 08:57 (Imdur) 30 mg DAILY PO 09/15/16 10:30 09/19/16 08:57 (Lactulose Liq) 30 ml DAILY PO 09/16/16 09:00 09/19/16 08:57 (Synthroid) 50 mcg DAILY@0600 PO 09/16/16 06:00 09/19/16 06:13 (Refresh Classic 1.4-0.6% Pf Opth Soln) 1 drop TID PRN EACH EYE 09/15/16 10:15 (Flomax) 0.4 mg DAILY PO 09/16/16 09:00 09/19/16 08:57 Patient Own Medication PT OWN MED: Azopt (Brinzolami... BID RIGHT EYE 09/15/16 21:00 Hold (Mag-Ox) 500 mg DAILY@11 PO 09/15/16 11:00 09/19/16 11:36 (Protonix) 20 mg DAILY PO 09/16/16 09:00 09/19/16 08:57 (Pravachol) 40 mg HS PO 09/15/16 21:00 09/18/16 21:00 (Xalatan 0.005% Opth Soln) 1 drop HS RIGHT EYE 09/15/16 21:00 09/18/16 21:02 (Pill Splitter) 1 ea UNSCH PRN OTHER 09/15/16 10:45 (Alphagan 0.2% Opth Soln) 1 drop Q12HR RIGHT EYE 09/15/16 21:00 09/19/16 09:00 (Timoptic 0.5% Opth Soln) 1 drop Q12HR RIGHT EYE 09/15/16 21:00 09/19/16 09:00 (D50w (Vial) Inj) 25 ml UNSCH PRN IV PUSH 09/15/16 11:30 (Glucagon Inj) 1 mg UNSCH PRN OTHER 09/15/16 11:30 (Coreg) 12.5 mg BID PO 09/15/16 21:00 09/19/16 08:57 (Tylenol) 650 mg Q4H PRN PO 09/16/16 14:30 09/19/16 08:57 Lorazepam 0.5 mg 0.5 mg Q6H PRN PO 09/16/16 14:30 09/19/16 08:58 (Zithromax Inj/ NS 250 ml Inj) 250 ml @ 250 mls/hr Q24H IV 09/16/16 20:00 09/18/16 20:57 (SoluMEDROL INJ) 40 mg BID IV 09/19/16 09:00 09/19/16 09:01 A/P Assessment and Plan -Acute on chronic systolic heart failure with history of cardiomyopathy with known ejection fraction of 25% status post AICD, -Pleural effusion- consult pulm, dimehreene, thoracentesis 09/19, -Anoxic encephalopathy- Lasix 40 mg every 12 monitor output, Coreg 12.5 mg twice a day, Eliquis -Diabetes type 2 continue on insulin regimen -SIXTO: Start gentle IVF's. Hold diuretics, am labs. Renal Us. Nephrology consult. -chronic kidney disease. -Hyponatremia- Monitor lytes on IV Lasix -Hyperkalemia: kayexelate x one, recheck K -History of GI bleed in the past continue on PPI -BPH- continue Flomax Srinivas Naylor MD September 19, 2016 13:51
[2016-09-19] MEDS: SODIUM CHLOR 0.9% 1000 ML INJ 1,000 ML IV SCH (14:59)
--- NOTE | 2016-09-19 17:53 | RADRPT ---
EXAM DATE/TIME: 09/19/2016 14:31 [facility] COMPARISON: No previous studies available for comparison. INDICATIONS : Increased lab values. MEDICAL HISTORY : Hypercholesterolemia. Congestive heart failure. Myocardial infarction. COPD. Hiatal hernia. GI bleed. Renal failure. Arthritis. MRSA. SURGICAL HISTORY : Pacemaker. CABG. ENCOUNTER: Initial ACUITY: 1 day PAIN SCORE: 4/10 LOCATION: Bilateral flank MEASUREMENTS: RIGHT KIDNEY: 11.6 x 5.0 x 5.1 cm LEFT KIDNEY: 10.9 x 6.0 x 5.6 cm FINDINGS: RIGHT KIDNEY: Renal cortex is normal in thickness and echotexture. No hydronephrosis, stone, or mass. LEFT KIDNEY: Renal cortex is normal in thickness and echotexture. No hydronephrosis, stone, or mass. BLADDER: Within normal limits given the degree of distension. CONCLUSION: 1. Renal ultrasound unremarkable except for trace fluid around the right kidney. Jorge Pearce MD on September 19, 2016 at 17:49 Board Certified Radiologist. This report was verified electronically.
--- NOTE | 2016-09-19 18:43 | PD.CONS ---
HPI Service Nephrology Consult Requested By Dr. Naylor Reason for Consult [facility] Primary Care Physician Srinivas Naylor MD History of Present Illness The patient is a 70 yo [place] male who was brought to the ED on 09/15 with complaints of SOB. He has had multiple admissions in the past couple of months (CHF exacerbation, GI bleed) and is continuing to deteriorate. He has an extensive PMHx of CHF with placement of AICD with reported EF of 25%, s/p cardiac arrest with successful resuscitation on 08/04, reported CKD (pt not arousable to clarify this), COPD, BPH, DM. As mentioned above, the patient is very drowsy and not taking to me so information gather from other records. During his previous admissions, his SCr has been ranging in between 1.6-1.8, but not sure of renal functions prior to this year as he just moved here. Admitting SCr of 1.35 that has worsened to 1.87 at consult. Potassium has been borderline elevated for the past few days. He has been on Lasix IV 40mg q12h since his admission and CXR revealing L sided effusion on 09/17 (planned thoracentesis today). UOP has been good. (Mary Lou Goodwin) Review of Systems ROS Limitations: Clinical Condition (Mary Lou Goodwin) Past Family Social History Allergies: Coded Allergies: Iodinated Contrast Media (Verified Allergy, Intermediate, ITCHING, 09/15/16) Sulfa (Verified Allergy, Intermediate, RASH, 09/15/16) *MDRO Multi-Drug Resistant Organism (Verified Adverse Reaction, Unknown, ) MRSA PCR Screen POSITIVE - 08/25/2016 & 09/04/2016 Past Medical History CHF with EF of 25% s/p AICD Mention of CKD DM s/p cardiac arrest 08/04 COPD BPH Past Surgical History CABG AICD placement Cataract repair L toe amputation Reported Medications Reported Meds & Active Scripts Active Diflucan (Fluconazole) 200 Mg Tab 200 Mg PO DAILY Lactulose Liq (Lactulose) 10 Gm/15 Ml Soln 30 Ml PO DAILY Flomax (Tamsulosin HCl) 0.4 Mg Cap 0.4 Mg PO DAILY Ipratropium Neb (Ipratropium [place]) 0.5 Mg/2.5 Ml Amp 0.5 Mg NEB Q6HR NEB Eliquis (Apixaban) 5 Mg Tab 5 Mg PO BID Levemir Inj (Insulin Detemir) 1,000 unit/ 10 ML Vial 5 Units SQ Q12HR Colace (Docusate Sodium) 100 Mg Cap 100 Mg PO BID Ferrous Sulfate 325 Mg Tab 325 Mg PO DAILY Reported Humalog Inj (Insulin Human Lispro) 1,000 Unit/10 Ml Vial 1-9 Units SQ ACHS Max dose at bedtime:( )units; sugars< 70,(0)units; sugars 150-199,(1)unit; sugars 200-249,(3)units; sugars 250-299,(5)units; sugars 300-349,(7)units; sugars more than 349,(9)units. Azopt Opth Drops (Brinzolamide) 1% Susp 1 Drop RIGHT EYE BID Furosemide 40 Mg Tab 40 Mg PO BID Ascorbic Acid 500 Mg Tab 500 Mg PO BID Multiple Vitamin 1 Tab 1 Tab PO DAILY Omeprazole 20 Mg Tab 20 Mg PO DAILY Magnesium Oxide 500 Mg Tab 500 Mg PO DAILY Travatan Z Opth Drops (Travoprost) 0.004 % Soln 1 Drop RIGHT EYE HS Carvedilol 6.25 Mg Tab 6.25 Mg PO BID Zocor (Simvastatin) 20 Mg Tab 20 Mg PO HS Nitroglycerin SL (Nitroglycerin) 0.4 Mg Subl 0.4 Mg SL DIRECTED PRN ONE TABLET UNDER THE TONGUE NEEDED FOR CHEST PAIN, MAY REPEAT EVERY FIVE MINUTES FOR A TOTAL OF 3 DOSES OR CALL 911 IF NO RELIEF Levothyroxine (Levothyroxine Sodium) 50 Mcg Tab 50 Mcg PO DAILY Isosorbide Mononitrate ER (Isosorbide Mononitrate) 30 Mg Adriana 30 Mg PO DAILY Combigan Opth Drops (Brimonidine-Timolol Opth Drops) 0.2-0.5% Soln 1 Drop RIGHT EYE Q12HR Aspirin EC Low Dose (Aspirin) 81 Mg Tabec 81 Mg PO DAILY Refresh Opth Drops (Polyvinyl Alcohol-Povidone Opth Drops) 1.4-0.6% Drops 1 Drop EACH EYE TID PRN Active Ordered Medications Current Medications Medications (Trade) Dose Ordered Sig/Jacek Route Start Time Stop Time Status Last Admin (NS Flush) 2 ml UNSCH PRN IVF 09/15/16 09:00 09/18/16 21:06 (Vitamin C) 500 mg BID PO 09/15/16 21:00 09/19/16 08:57 (Colace) 100 mg BID PO 09/15/16 21:00 09/18/16 21:01 (Ferrous Sulfate) 325 mg DAILY PO 09/16/16 09:00 09/19/16 08:57 (Imdur) 30 mg DAILY PO 09/15/16 10:30 09/19/16 08:57 (Lactulose Liq) 30 ml DAILY PO 09/16/16 09:00 09/19/16 08:57 (Synthroid) 50 mcg DAILY@0600 PO 09/16/16 06:00 09/19/16 06:13 (Refresh Classic 1.4-0.6% Pf Opth Soln) 1 drop TID PRN EACH EYE 09/15/16 10:15 (Flomax) 0.4 mg DAILY PO 09/16/16 09:00 09/19/16 08:57 Patient Own Medication PT OWN MED: Azopt (Brinzolami... BID RIGHT EYE 09/15/16 21:00 Hold (Mag-Ox) 500 mg DAILY@11 PO 09/15/16 11:00 09/19/16 11:36 (Protonix) 20 mg DAILY PO 09/16/16 09:00 09/19/16 08:57 (Pravachol) 40 mg HS PO 09/15/16 21:00 09/18/16 21:00 (Xalatan 0.005% Opth Soln) 1 drop HS RIGHT EYE 09/15/16 21:00 09/18/16 21:02 (Pill Splitter) 1 ea UNSCH PRN OTHER 09/15/16 10:45 (Alphagan 0.2% Opth Soln) 1 drop Q12HR RIGHT EYE 09/15/16 21:00 09/19/16 09:00 (Timoptic 0.5% Opth Soln) 1 drop Q12HR RIGHT EYE 09/15/16 21:00 09/19/16 09:00 (D50w (Vial) Inj) 25 ml UNSCH PRN IV PUSH 09/15/16 11:30 (Glucagon Inj) 1 mg UNSCH PRN OTHER 09/15/16 11:30 (Coreg) 12.5 mg BID PO 09/15/16 21:00 09/19/16 08:57 (Tylenol) 650 mg Q4H PRN PO 09/16/16 14:30 09/19/16 08:57 Lorazepam 0.5 mg 0.5 mg Q6H PRN PO 09/16/16 14:30 09/19/16 08:58 (Zithromax Inj/ NS 250 ml Inj) 250 ml @ 250 mls/hr Q24H IV 09/16/16 20:00 09/18/16 20:57 Methylprednisolone Sodium Succinate 40 mg 40 mg BID IV 09/19/16 09:00 09/19/16 09:01 (NS 1000 ml Inj) 1,000 ml @ 30 mls/hr Q24H IV 09/19/16 14:00 09/19/16 14:59 Family History NC Social History No smoking, EtOH, or illicits as per chart (Mary Lou Goodwin) Physical Exam Vital Signs Vital Signs Date Time Temp Pulse Resp B/P Pulse Ox O2 Delivery O2 Flow Rate FiO2 09/19/16 16:04 97.9 93 18 140/66 96 09/19/16 13:00 97.7 94 18 134/66 96 132/66 138/64 09/19/16 12:04 97.7 92 19 111/59 93 09/19/16 09:24 96 09/19/16 08:04 97.7 97 19 145/69 94 09/19/16 07:41 95 Nasal Cannula 3.00 09/19/16 07:20 Nasal Cannula 3.00 09/19/16 04:00 97.4 100 18 117/71 96 09/19/16 00:00 98.0 98 17 118/56 93 09/18/16 20:23 99 09/18/16 20:15 Nasal Cannula 3.00 09/18/16 20:04 98.1 88 20 140/66 95 Physical Exam GENERAL: Pt very drowsy. Does mumble initially, but then goes right back to sleep SKIN: Warm and dry. HEAD: Atraumatic. Normocephalic. EYES: Pupils equal and round. No scleral icterus. No injection or drainage. ENT: No nasal bleeding or discharge. Mucous membranes pink and moist. NECK: Trachea midline. No JVD. CARDIOVASCULAR: Regular rate and rhythm. RESPIRATORY: No accessory muscle use. Diminished breath sounds throughout but L> R GASTROINTESTINAL: Abdomen soft, non-tender, nondistended. Hepatic and splenic margins not palpable. MUSCULOSKELETAL: Extremities without clubbing, cyanosis, or edema. No obvious deformities. NEUROLOGICAL: Drowsy PSYCHIATRIC: Unable to attain Laboratory Laboratory Tests Test 09/19/16 09/19/16 05:11 12:30 White Blood Count 7.5 Red Blood Count 3.33 Hemoglobin 10.4 Hematocrit 31.8 Mean Corpuscular Volume 95.4 Mean Corpuscular Hemoglobin 31.1 Mean Corpuscular Hemoglobin 32.6 Concent Red Cell Distribution Width 17.6 Platelet Count 395 Mean Platelet Volume 8.7 Neutrophils (%) (Auto) 90.0 Lymphocytes (%) (Auto) 4.3 Monocytes (%) (Auto) 5.5 Eosinophils (%) (Auto) 0.0 Basophils (%) (Auto) 0.2 Neutrophils # (Auto) 6.8 Lymphocytes # (Auto) 0.3 Monocytes # (Auto) 0.4 Eosinophils # (Auto) 0.0 Basophils # (Auto) 0.0 CBC Comment DIFF FINAL Differential Comment Sodium Level 128 Potassium Level 5.2 Chloride Level 82 Carbon Dioxide Level 39.9 Anion Gap 6 Blood Urea Nitrogen 73 Creatinine 1.87 Estimat Glomerular Filtration 36 Rate Random Glucose 233 Calcium Level 8.7 Pleural Fluid pH 8.0 Pleural Fluid WBC 889 Pleural Fluid RBC 72[address] Pleural Fluid Neutrophils 32 Pleural Fluid Lymphocytes 43 Pleural Fluid Monocytes 10 Pleural Fluid Basophils 1 Pleural Fluid Histiocytes 12 Pleural Fluid Mesothelial 2 Cells Pleural Fluid Total Protein 2.3 Pleural Fluid LDH 72 Pleural Fluid Glucose 272 Pleural Fluid Amylase 11 Date/Time Procedure Status Source Growth 09/19/16 12:30 Gram Stain Received Fluid Pleural Fluid Pending 09/19/16 12:30 Body Fluid Culture Received Fluid Pleural Fluid Pending 09/19/16 12:30 Fungal Smear Received Fluid Pleural Fluid Pending 09/19/16 12:30 Fungal Culture Received Fluid Pleural Fluid Pending 09/19/16 12:30 Acid Fast Stain Received Fluid Pleural Fluid Pending 09/19/16 12:30 Mycobacterial Culture Received Fluid Pleural Fluid Pending (Mary Lou Goodwin) Result Diagram: 09/19/16 0511 09/19/16 0511 Imaging Last Impressions Renal Ultrasound 09/19/16 0000 Signed Impressions: Service Date/Time: September 14:31 - CONCLUSION: 1. Renal ultrasound unremarkable except for trace fluid around the right kidney. Jorge Pearce MD Chest X-Ray 09/19/16 0000 Signed Impressions: Service Date/Time: September 12:41 - CONCLUSION: Cardiomegaly with improving pulmonary edema. No pneumothorax. Osbaldo Abebe MD Chest Ultrasound 09/16/16 0000 Signed Impressions: Service Date/Time: Friday, September 16, 2016 19:49 - CONCLUSION: Moderate left pleural effusion marked for thoracentesis. Scott Leblanc MD (Mary Lou Goodwin) Assessment and Plan Problem List: (1) Acute on chronic renal insufficiency Plan: Appears just based on recent admission that he has CKD This may be his baseline function. Appears this is a cardiorenal syndrome complicated by advanced COPD. Given his hyponatremia, this can be a poor prognostic indicator. Been started on gentle hydration by primary. Will follow with renal functions in the AM. Given his pleural effusion and impaired myocardial function, close monitoring for fluid overload. Review of records from previous admission show a declining state. Overall, his prognosis is poor. Medications should be adjusted for the patient's renal decline. Avoid iodinated contrast dyes and NSAIDs. Avoid gadolinium when eGFR <30. (2) CHF (congestive heart failure) Plan: Clinically compensated at the present. Monitor. (3) Hyperkalemia Plan: s/p Kionex today. Raises suspicion that renal functions are actually worse than what is being reported (4) DM (diabetes mellitus) Plan: Mgmt as per primary (5) CAD (coronary artery disease) Plan: Mgmt as per cardiology (Mary Lou Goodwin) Assessment and Plan The exam, history, and the medical decision-making described in the above note were completed with the assistance of the PA-Jessica. I reviewed and agree with the findings presented. (Beti Murdock MD) Mary Lou Goodwin September 19, 2016 18:42 Beti Murdock MD September 20, 2016 17:20
[2016-09-19] MEDS: AZITHROMYCIN INJ 500 MG in SODIUM CHLOR 0.9% 250 ML INJ 250 ML IV SCH (21:57)
[2016-09-19] MEDS: PRAVASTATIN SOD 40 MG TAB PO SCH (21:58)
[2016-09-19] MEDS: LATANOPROST 0.005% OPHT SOLN 2.5 ML BTL RIGHT EYE SCH (21:59)
[2016-09-19] MEDS: SODIUM CHLORIDE 0.9% FLUSH 10 ML FLUSH IVF PRN (22:04)
[2016-09-20] VITALS (8 sets, daily range): BP systolic 95–126; BP diastolic 52–65; PULSE 80–98; RESP 18–20; TEMP 97.3–98.3; O2SAT 92–98
[2016-09-20] MEDS: LEVOTHYROXINE SODIUM 50 MCG TAB PO SCH (05:43)
[2016-09-20] MEDS: LOW DOSE INSULIN NOVOLOG SUPPLEMENTAL SCALE SQ SCH ×4 (05:45→20:48)
[2016-09-20 07:06] LABS: AUTOMATED NEUTROPHIL # 5.8 TH/MM3 (1.8-7.7); BASOPHIL % 0.1 % (0.0-2.0); HEMATOCRIT 32.1 % (39.0-51.0); HEMO FLAGS DIFF FINAL; LYMPH % 5.5 % (9.0-44.0); LYMPHOCYTE # 0.4 TH/MM3 (1.0-4.8); MEAN CELL VOLUME 96.2 FL (80.0-100.0); MEAN CORPUSCULAR HEMOGLOBIN 30.8 PG (27.0-34.0); MONO % 4.4 % (0.0-8.0); PLATELET COUNT 363 TH/MM3 (150-450); RED BLOOD COUNT 3.34 MIL/MM3 (4.50-5.90); RED CELL DISTRIBUTION WIDTH 17.8 % (11.6-17.2); WHITE BLOOD COUNT 6.5 TH/MM3 (4.0-11.0)
[2016-09-20] MEDS: RESP: ALBUTEROL 2.5 MG/IPRATROPIUM 0.5 MG NEB (SCH) NEB ×3 (07:45→15:42)
[2016-09-20 07:50] LABS: BICARBONATE 38.2 MEQ/L (21.0-32.0); POTASSIUM 5.4 MEQ/L (3.5-5.1)
[2016-09-20] MEDS: LACTULOSE SYRUP 20 GM/30 ML CUP PO SCH (08:46)
[2016-09-20] MEDS: FERROUS SULFATE 325 MG (65 MG ELEMENTAL IRON) TAB PO SCH (08:46)
[2016-09-20] MEDS: PANTOPRAZOLE SOD 20 MG DELAYED RELEASE TAB PO SCH (08:46)
[2016-09-20] MEDS: DOCUSATE SODIUM 100 MG CAP PO SCH ×2 (08:46→20:26)
[2016-09-20] MEDS: ASCORBIC ACID 500 MG TAB PO SCH ×2 (08:47→20:26)
[2016-09-20] MEDS: TAMSULOSIN HCL 0.4 MG CAP PO SCH (08:47)
[2016-09-20] MEDS: methylPREDNISolone SOD SUCC 40 MG/1 ML VIAL IV SCH (08:47)
[2016-09-20] MEDS: TIMOLOL MALEATE 0.5% OPHT SOLN 5 ML BTL RIGHT EYE SCH ×2 (08:49→20:32)
[2016-09-20] MEDS: BRIMONIDINE TARTRATE 0.2% OPHT SOLN 5 ML BTL RIGHT EYE SCH ×2 (08:49→20:32)
[2016-09-20] MEDS: SODIUM CHLOR 0.9% 1000 ML INJ 1,000 ML IV SCH (08:50)
[2016-09-20] MEDS: CARVEDILOL 12.5 MG TAB PO SCH ×2 (09:00→20:26)
[2016-09-20] MEDS: ISOSORBIDE MONONITRATE 30 MG TAB PO SCH (09:00)
--- NOTE | 2016-09-20 09:04 | HHI.FPPN ---
Subjective Remarks QUIESCENT VERY WEAK SLEEPING YET AROUSES TO VOICE D/W RN Objective Vitals Vital Signs Date Time Temp Pulse Resp B/P Pulse Ox O2 Delivery O2 Flow Rate FiO2 09/20/16 08:00 97.3 87 18 95/52 98 09/20/16 07:47 95 Nasal Cannula 3.00 09/20/16 04:00 98.3 92 18 115/65 95 09/20/16 00:00 97.3 91 18 102/54 94 09/19/16 22:11 96 Nasal Cannula 3.00 09/19/16 20:45 Nasal Cannula 3.00 09/19/16 20:06 95 09/19/16 20:00 98.0 95 18 121/56 96 09/19/16 16:04 97.9 93 18 140/66 96 09/19/16 13:00 97.7 94 18 134/66 96 132/66 138/64 09/19/16 12:04 97.7 92 19 111/59 93 09/19/16 09:24 96 I/O 09/19/16 09/19/16 09/19/16 09/20/16 09/20/16 09/20/16 07:00 15:00 23:00 07:00 15:00 23:00 Intake Total 60 ml 180 ml 240 ml 0 ml Output Total 500 ml 500 ml 750 ml 100 ml Balance -440 ml -320 ml -510 ml -100 ml Intake Oral 60 ml 180 ml 240 ml 0 ml Output Urine Total 500 ml 500 ml 750 ml 100 ml # Bowel Movements 0 0 0 0 Result Diagram: 09/20/16 0629 09/20/16 0629 Imaging Last 72 hours Impressions Renal Ultrasound 09/19/16 0000 Signed Impressions: Service Date/Time: September 14:31 - CONCLUSION: 1. Renal ultrasound unremarkable except for trace fluid around the right kidney. Jorge Pearce MD Chest X-Ray 09/19/16 0000 Signed Impressions: Service Date/Time: September 12:41 - CONCLUSION: Cardiomegaly with improving pulmonary edema. No pneumothorax. Osbaldo Abebe MD Chest X-Ray 09/18/16 0600 Signed Impressions: Service Date/Time: Sunday, September 18, 2016 06:17 - CONCLUSION: Cardiomegaly with pulmonary edema and worsening CHF. Osbaldo Abebe MD Objective Remarks GENERAL: SKIN: Warm and dry. HEAD: Atraumatic. Normocephalic. EYES: Pupils equal and round. No scleral icterus. No injection or drainage. ENT: No nasal bleeding or discharge. Mucous membranes pink and moist. NECK: Trachea midline. No JVD. CARDIOVASCULAR: Regular rate and rhythm. RESPIRATORY: No accessory muscle use. Bilateral congestion and ronchi, R base crackles GASTROINTESTINAL: Abdomen soft, non-tender, nondistended. Hepatic and splenic margins not palpable. MUSCULOSKELETAL: Extremities without clubbing, cyanosis, or edema. No obvious deformities. NEUROLOGICAL: Awake and alert. No obvious cranial nerve deficits. Motor grossly within normal limits. 1 out of 5 muscle strength in the arms and legs. Normal speech. PSYCHIATRIC: Appropriate mood and affect; insight and judgment normal. Medications and IVs Current Medications Medications (Trade) Dose Ordered Sig/Jacek Route Start Time Stop Time Status Last Admin (NS Flush) 2 ml UNSCH PRN IVF 09/15/16 09:00 09/19/16 22:04 (Vitamin C) 500 mg BID PO 09/15/16 21:00 09/20/16 08:47 (Colace) 100 mg BID PO 09/15/16 21:00 09/20/16 08:46 (Ferrous Sulfate) 325 mg DAILY PO 09/16/16 09:00 09/20/16 08:46 (Imdur) 30 mg DAILY PO 09/15/16 10:30 09/19/16 08:57 (Lactulose Liq) 30 ml DAILY PO 09/16/16 09:00 09/20/16 08:46 (Synthroid) 50 mcg DAILY@0600 PO 09/16/16 06:00 09/20/16 05:43 (Refresh Classic 1.4-0.6% Pf Opth Soln) 1 drop TID PRN EACH EYE 09/15/16 10:15 (Flomax) 0.4 mg DAILY PO 09/16/16 09:00 09/20/16 08:47 Patient Own Medication PT OWN MED: Azopt (Brinzolami... BID RIGHT EYE 09/15/16 21:00 Hold (Mag-Ox) 500 mg DAILY@11 PO 09/15/16 11:00 09/19/16 11:36 (Protonix) 20 mg DAILY PO 09/16/16 09:00 09/20/16 08:46 (Pravachol) 40 mg HS PO 09/15/16 21:00 09/19/16 21:58 (Xalatan 0.005% Opth Soln) 1 drop HS RIGHT EYE 09/15/16 21:00 09/19/16 21:59 (Pill Splitter) 1 ea UNSCH PRN OTHER 09/15/16 10:45 (Alphagan 0.2% Opth Soln) 1 drop Q12HR RIGHT EYE 09/15/16 21:00 09/20/16 08:49 (Timoptic 0.5% Opth Soln) 1 drop Q12HR RIGHT EYE 09/15/16 21:00 09/20/16 08:49 (D50w (Vial) Inj) 25 ml UNSCH PRN IV PUSH 09/15/16 11:30 (Glucagon Inj) 1 mg UNSCH PRN OTHER 09/15/16 11:30 (Coreg) 12.5 mg BID PO 09/15/16 21:00 09/19/16 21:59 (Tylenol) 650 mg Q4H PRN PO 09/16/16 14:30 09/19/16 08:57 Lorazepam 0.5 mg 0.5 mg Q6H PRN PO 09/16/16 14:30 09/19/16 08:58 (Zithromax Inj/ NS 250 ml Inj) 250 ml @ 250 mls/hr Q24H IV 09/16/16 20:00 09/19/16 21:57 Methylprednisolone Sodium Succinate 40 mg 40 mg BID IV 09/19/16 09:00 09/20/16 08:47 (NS 1000 ml Inj) 1,000 ml @ 30 mls/hr Q24H IV 09/19/16 14:00 09/20/16 08:50 A/P Assessment and Plan -Acute on chronic systolic heart failure with history of cardiomyopathy with known ejection fraction of 25% status post AICD, -Pleural effusion- consult pulm, diurese, thoracentesis 09/19, -Cardiorenal syndrome -Anoxic encephalopathy- Lasix 40 mg every 12 monitor output, Coreg 12.5 mg twice a day, Eliquis -Diabetes type 2 continue on insulin regimen -SIXTO: Gentle IVF's. Hold diuretics, am labs. Renal Us negative. Nephrology consult appreciated. -chronic kidney disease. -Hyponatremia- Monitor lytes -Hyperkalemia: s/p kayexelate x one, recheck K -History of GI bleed in the past continue on PPI -BPH- continue Flomax Srinivas Naylor MD September 20, 2016 09:04
[2016-09-20] MEDS: MAGNESIUM OXIDE 400 MG TAB PO SCH (12:06)
[2016-09-20] MEDS ORDERED: SODIUM POLYSTYRENE SULFONATE SUSP 15 GM/60 ML CUP PO ONE (13:00)
--- NOTE | 2016-09-20 14:41 | HHI.NPPN ---
Subjective History of Present Illness The patient is a 70 yo [place] male who was brought to the ED on 09/15 with complaints of SOB. He has had multiple admissions in the past couple of months (CHF exacerbation, GI bleed) and is continuing to deteriorate. He has an extensive PMHx of CHF with placement of AICD with reported EF of 25%, s/p cardiac arrest with successful resuscitation on 08/04, reported CKD (pt not arousable to clarify this), COPD, BPH, DM. As mentioned above, the patient is very drowsy and not taking to me so information gather from other records. During his previous admissions, his SCr has been ranging in between 1.6-1.8, but not sure of renal functions prior to this year as he just moved here. Admitting SCr of 1.35 that has worsened to 1.87 at consult. Potassium has been borderline elevated for the past few days. He has been on Lasix IV 40mg q12h since his admission and CXR revealing L sided effusion on 09/17 (planned thoracentesis today). UOP has been good. Interval History Pt more awake today. Conversive, but baseline dementia No complaints. (Mary Lou Goodwin) Objective Data Data 09/19/16 09/20/16 18:59 06:59 Intake Total 180 ml 240 ml Output Total 500 ml 850 ml Balance -320 ml -610 ml Intake Oral 180 ml 240 ml Output Urine Total 500 ml 850 ml # Bowel Movements 0 0 Vital Signs Date Time Temp Pulse Resp B/P Pulse Ox O2 Delivery O2 Flow Rate FiO2 09/20/16 12:00 97.6 80 18 112/62 96 09/20/16 09:29 Nasal Cannula 3.00 30 09/20/16 08:00 97.3 87 18 95/52 98 09/20/16 07:47 95 Nasal Cannula 3.00 09/20/16 04:00 98.3 92 18 115/65 95 09/20/16 00:00 97.3 91 18 102/54 94 09/19/16 22:11 96 Nasal Cannula 3.00 09/19/16 20:45 Nasal Cannula 3.00 09/19/16 20:06 95 09/19/16 20:00 98.0 95 18 121/56 96 09/19/16 16:04 97.9 93 18 140/66 96 (Mary Lou Goodwin) -: 09/20/16 0629 09/20/16 0629 Imaging Last Impressions Renal Ultrasound 09/19/16 0000 Signed Impressions: Service Date/Time: September 14:31 - CONCLUSION: 1. Renal ultrasound unremarkable except for trace fluid around the right kidney. Jorge Pearce MD Chest X-Ray 09/19/16 0000 Signed Impressions: Service Date/Time: September 12:41 - CONCLUSION: Cardiomegaly with improving pulmonary edema. No pneumothorax. Osbaldo Abebe MD Chest Ultrasound 09/16/16 0000 Signed Impressions: Service Date/Time: Friday, September 16, 2016 19:49 - CONCLUSION: Moderate left pleural effusion marked for thoracentesis. Scott Leblanc MD Medication Review Current Medications Medications (Trade) Dose Ordered Sig/Jacek Route Start Time Stop Time Status Last Admin (NS Flush) 2 ml UNSCH PRN IVF 09/15/16 09:00 09/19/16 22:04 (Vitamin C) 500 mg BID PO 09/15/16 21:00 09/20/16 08:47 (Colace) 100 mg BID PO 09/15/16 21:00 09/20/16 08:46 (Ferrous Sulfate) 325 mg DAILY PO 09/16/16 09:00 09/20/16 08:46 (Imdur) 30 mg DAILY PO 09/15/16 10:30 09/19/16 08:57 (Lactulose Liq) 30 ml DAILY PO 09/16/16 09:00 09/20/16 08:46 (Synthroid) 50 mcg DAILY@0600 PO 09/16/16 06:00 09/20/16 05:43 (Refresh Classic 1.4-0.6% Pf Opth Soln) 1 drop TID PRN EACH EYE 09/15/16 10:15 (Flomax) 0.4 mg DAILY PO 09/16/16 09:00 09/20/16 08:47 Patient Own Medication PT OWN MED: Azopt (Brinzolami... BID RIGHT EYE 09/15/16 21:00 Hold (Mag-Ox) 500 mg DAILY@11 PO 09/15/16 11:00 09/20/16 12:06 (Protonix) 20 mg DAILY PO 09/16/16 09:00 09/20/16 08:46 (Pravachol) 40 mg HS PO 09/15/16 21:00 09/19/16 21:58 (Xalatan 0.005% Opth Soln) 1 drop HS RIGHT EYE 09/15/16 21:00 09/19/16 21:59 (Pill Splitter) 1 ea UNSCH PRN OTHER 09/15/16 10:45 (Alphagan 0.2% Opth Soln) 1 drop Q12HR RIGHT EYE 09/15/16 21:00 09/20/16 08:49 (Timoptic 0.5% Opth Soln) 1 drop Q12HR RIGHT EYE 09/15/16 21:00 09/20/16 08:49 (D50w (Vial) Inj) 25 ml UNSCH PRN IV PUSH 09/15/16 11:30 (Glucagon Inj) 1 mg UNSCH PRN OTHER 09/15/16 11:30 (Coreg) 12.5 mg BID PO 09/15/16 21:00 09/19/16 21:59 (Tylenol) 650 mg Q4H PRN PO 09/16/16 14:30 09/19/16 08:57 Lorazepam 0.5 mg 0.5 mg Q6H PRN PO 09/16/16 14:30 09/19/16 08:58 (Zithromax Inj/ NS 250 ml Inj) 250 ml @ 250 mls/hr Q24H IV 09/16/16 20:00 09/19/16 21:57 Methylprednisolone Sodium Succinate 40 mg 40 mg BID IV 09/19/16 09:00 09/20/16 08:47 (NS 1000 ml Inj) 1,000 ml @ 30 mls/hr Q24H IV 09/19/16 14:00 09/20/16 08:50 (Mary Lou Goodwin) Physical Exam General Appearance: No Acute Distress, Comfortable (Mary Lou Goodwin) Neck Neck Exam: Neck Supple, Trachea Midline (Mary Lou Goodwin) Pulmonary Resp Exam: Breath Sounds Equal, Diminished Breath Sounds (Mary Lou Goodwin) Cardiology CV Exam: Regular, Normal Sinus Rhythm (Mary Lou Goodwin) Gastrointestinal/Abdomen GI Exam: Soft, Non-Tender (Mary Lou Goodwin) Integumentary Skin Exam: Clear, Warm (Mary Lou Goodwin) Extremeties Extremities Exam: No Edema (Mary Lou Goodwin) Neurologic Neuro Exam: Alert, Awake (Mary Lou Goodwin) Assessment/Plan Problem List: (1) Acute on chronic renal insufficiency Plan: Appears just based on recent admission that he has CKD. He states today that he has never been told CKD, but questionable historian. SCr stable Continue on gentle hydration with close monitoring for fluid overload. Appears this is a cardiorenal syndrome complicated by advanced COPD. Given his hyponatremia, this can be a poor prognostic indicator. Overall, his prognosis is poor. Will see the patient intermittently throughout the weekend. Please call if needed. Medications should be adjusted for the patient's renal decline. Avoid iodinated contrast dyes and NSAIDs. Avoid gadolinium when eGFR <30. (2) CHF (congestive heart failure) Plan: Clinically compensated at the present. Monitor. (3) Hyperkalemia Plan: Kionex today. Raises suspicion that renal functions are actually worse than what is being reported (4) DM (diabetes mellitus) Plan: Mgmt as per primary (5) CAD (coronary artery disease) Plan: Mgmt as per cardiology (Mary Lou Goodwin) Plan Patient appears to be clinically euvolemic at this point in time. I believe that the patient's azotemia is most likely close to baseline. Patient's azotemia multifactorial secondary to intrinsic renal disease coupled with cardiorenal syndrome. Unfortunately patient does have COPD superimposed. There is evidence of metabolic compensation for chronic respiratory acidosis. Hyponatremia poor prognostic indicator in the setting of congestive heart failure. Diuretics could be resumed from a renal point of view to euvolemic and we will have to accept some degree of azotemia in this setting. Overall prognosis is very poor. The patient will be seen when necessary. The exam, history, and the medical decision-making described in the above note were completed with the assistance of the PA-C. I reviewed and agree with the findings presented. I attest that I had a [id number] encounter with the patient on the same day, and personally performed and documented my assessment and findings in the medical record. (Beti Murdock MD) Mary Lou Goodwin September 20, 2016 14:41 Beti Murdock MD September 20, 2016 17:22
--- NOTE | 2016-09-20 15:39 | MR ---
cc: CALLY WIGGINS DATE: 09/19/2016 PROCEDURE Left thoracentesis. PREOPERATIVE DIAGNOSIS Left pleural effusion. ANESTHESIA 1% Xylocaine. SURGEON Dr. Beti Wiggins PROCEDURE AND FINDINGS The patient's left posterior back was prepped with chlorhexidine solution following which sterile drapes were applied. 1% Xylocaine was then injected in the intercostal space in the posterior axillary line after which a small incision was made with a scalpel blade. Following this a 14-gauge catheter was inserted in the pleural space. This was connected to a vacuum bottle. Approximately 550 cc of reddish fluid was aspirated and the flow stopped. The patient tolerated the procedure well. Cally Wiggins MD [id number] /12:26 PM /3:32 PM
--- NOTE | 2016-09-20 19:42 | HHI.PR ---
Subjective Remarks Awake. Better today. On o2 2l. Output was marginal. No fever Objective Vital Signs Date Time Temp Pulse Resp B/P Pulse Ox O2 Delivery O2 Flow Rate FiO2 09/20/16 16:00 97.5 93 18 126/57 95 09/20/16 12:00 97.6 80 18 112/62 96 09/20/16 09:29 Nasal Cannula 3.00 30 09/20/16 08:00 97.3 87 18 95/52 98 09/20/16 07:47 95 Nasal Cannula 3.00 09/20/16 04:00 98.3 92 18 115/65 95 09/20/16 00:00 97.3 91 18 102/54 94 09/19/16 22:11 96 Nasal Cannula 3.00 09/19/16 20:45 Nasal Cannula 3.00 09/19/16 20:06 95 09/19/16 20:00 98.0 95 18 121/56 96 I/O 09/19/16 09/19/16 09/19/16 09/20/16 09/20/16 09/20/16 07:00 15:00 23:00 07:00 15:00 23:00 Intake Total 60 ml 180 ml 240 ml 0 ml 560 ml Output Total 500 ml 500 ml 750 ml 100 ml 425 ml Balance -440 ml -320 ml -510 ml -100 ml 135 ml Intake Oral 60 ml 180 ml 240 ml 0 ml 560 ml Output Urine Total 500 ml 500 ml 750 ml 100 ml 425 ml # Bowel Movements 0 0 0 0 1 Result Diagram: 09/20/1629 09/20/16628 Objective Remarks This elderly averagely built white male is alert, pale and dyspneic at rest. HEENT: Head normocephalic. Pupils are reactive. Tongue dry. Throat was clear. Nasal mucosa clear NECK: Supple. No bruits. Mild venous distension. Trachea midline. CHEST: Equal movements with an increased AP diameter, occasional basilar crackles. HEART: The heart sounds are regular S1-S2 with apical systolic murmur 2 x 6. ABDOMEN: Soft and protuberant without masses. No organomegaly or tenderness. Bowel sounds are active. EXTREMITIES: Edema 1+ . There is no clubbing, decreased peripheral pulses. Reflexes are 1+ with no gross motor deficits. NEUROLOGIC: Cranial nerves grossly intact. RECTAL: Exam is deferred. SKIN: Cool and dry. Assessment and Plan Assessment and Plan IMPRESSION 1. Congestive heart failure with acute exacerbation 2. Cardiomyopathy 3. History of diabetes mellitus 4. Chronic obstructive pulmonary disease with emphysema 5. Respiratory failure, chronic 6. History of prostatic hypertrophy Plan : 1. O2 at 3 L 2. Continue nebs qid , duoneb. 3. Bipap at HS 4. Resume anticoagulants. 5. Continue Diuretic daily. 6. Continue Zithromax Po 7. Renal consult planned. Elder Wiggins MD September 20, 2016 19:42 Elder Wiggins MD September 20, 2016 19:42
[2016-09-20] MEDS: AZITHROMYCIN INJ 500 MG in SODIUM CHLOR 0.9% 250 ML INJ 250 ML IV SCH (20:26)
[2016-09-20] MEDS: PRAVASTATIN SOD 40 MG TAB PO SCH (20:26)
[2016-09-20] MEDS: LATANOPROST 0.005% OPHT SOLN 2.5 ML BTL RIGHT EYE SCH (20:31)
[2016-09-20] MEDS: LORazepam 0.5 MG TAB PO PRN (20:57)
[2016-09-20 21:12] LABS: BACTERIA, URINE MOD /hpf; BLOOD, URINE NEG (NEG); COMMENT (UR) CULTURE INDICATED; CULTURE IF INDICATED CULTURE INDICATED; GLUCOSE,URINE 300 mg/dL (NEG); KETONE, URINE NEG (NEG); NITRITE,URINE NEG (NEG); SQUAMOUS EPITHELIAL CELL URINE <1 /hpf (0-5); URINE COLOR YELLOW (YELLW/STRAW)
[2016-09-21 00:30] VITALS: BP 100/68; PULSE 94; RESP 22; TEMP 97.8; O2SAT 97
[2016-09-21 04:00] VITALS: BP 105/51; PULSE 94; RESP 20; TEMP 98.8; O2SAT 98
[2016-09-21] MEDS: LEVOTHYROXINE SODIUM 50 MCG TAB PO SCH (05:30)
[2016-09-21] MEDS: LOW DOSE INSULIN NOVOLOG SUPPLEMENTAL SCALE SQ SCH ×4 (05:34→21:03)
[2016-09-21 08:00] VITALS: BP 126/75; PULSE 90; RESP 20; TEMP 97.3; O2SAT 98
[2016-09-21] MEDS: CARVEDILOL 12.5 MG TAB PO SCH ×2 (08:20→21:00)
[2016-09-21] MEDS: FERROUS SULFATE 325 MG (65 MG ELEMENTAL IRON) TAB PO SCH (08:20)
[2016-09-21] MEDS: LACTULOSE SYRUP 20 GM/30 ML CUP PO SCH (08:20)
[2016-09-21] MEDS: PANTOPRAZOLE SOD 20 MG DELAYED RELEASE TAB PO SCH (08:20)
[2016-09-21] MEDS: DOCUSATE SODIUM 100 MG CAP PO SCH ×2 (08:20→20:59)
[2016-09-21] MEDS: BRIMONIDINE TARTRATE 0.2% OPHT SOLN 5 ML BTL RIGHT EYE SCH ×2 (08:21→21:03)
[2016-09-21] MEDS: ISOSORBIDE MONONITRATE 30 MG TAB PO SCH (08:21)
[2016-09-21] MEDS: TIMOLOL MALEATE 0.5% OPHT SOLN 5 ML BTL RIGHT EYE SCH ×2 (08:21→21:04)
[2016-09-21] MEDS: ASCORBIC ACID 500 MG TAB PO SCH ×2 (08:21→21:00)
[2016-09-21] MEDS: TAMSULOSIN HCL 0.4 MG CAP PO SCH (08:21)
[2016-09-21 08:23] LABS: BICARBONATE 43.5 MEQ/L (21.0-32.0); POTASSIUM 4.9 MEQ/L (3.5-5.1)
[2016-09-21] MEDS: MAGNESIUM OXIDE 400 MG TAB PO SCH (11:20)
[2016-09-21 12:00] VITALS: BP 112/58; PULSE 86; RESP 20; TEMP 96.9; O2SAT 98
[2016-09-21] MEDS: SODIUM CHLOR 0.9% 1000 ML INJ 1,000 ML IV SCH (13:22)
--- NOTE | 2016-09-21 14:19 | HHI.PR ---
Subjective Remarks Pt states he feels ok. It is difficult to know if he understands everything I ask but has no complaints today. Objective Vitals Vital Signs Date Time Temp Pulse Resp B/P Pulse Ox O2 Delivery O2 Flow Rate FiO2 09/21/16 12:00 96.9 86 20 112/58 98 09/21/16 11:00 Nasal Cannula 3.00 30 09/21/16 08:00 97.3 90 20 126/75 98 09/21/16 04:00 98.8 94 20 105/51 98 09/21/16 00:30 97.8 94 22 100/68 97 09/20/16 21:45 92 Nasal Cannula 3.00 09/20/16 21:00 Nasal Cannula 3.00 09/20/16 20:00 97.5 98 20 117/58 95 09/20/16 20:00 97 09/20/16 16:00 97.5 93 18 126/57 95 I/O 09/20/16 09/20/16 09/20/16 09/21/16 09/21/16 09/21/16 07:00 15:00 23:00 07:00 15:00 23:00 Intake Total 0 ml 560 ml 1144 ml 445 ml Output Total 100 ml 425 ml Balance -100 ml 135 ml 1144 ml 445 ml Intake Oral 0 ml 560 ml IV Total 1144 ml 445 ml Output Urine Total 100 ml 425 ml # Bowel Movements 0 1 Result Diagram: 09/20/16 0629 09/21/16 0658 Imaging Last Impressions Renal Ultrasound 09/19/16 0000 Signed Impressions: Service Date/Time: September 14:31 - CONCLUSION: 1. Renal ultrasound unremarkable except for trace fluid around the right kidney. Jorge Pearce MD Chest X-Ray 09/19/16 0000 Signed Impressions: Service Date/Time: September 12:41 - CONCLUSION: Cardiomegaly with improving pulmonary edema. No pneumothorax. Osbaldo Abebe MD Chest Ultrasound 09/16/16 0000 Signed Impressions: Service Date/Time: Friday, September 16, 2016 19:49 - CONCLUSION: Moderate left pleural effusion marked for thoracentesis. Scott Leblanc MD Objective Remarks CARDIOVASCULAR: Regular rate and rhythm. RESPIRATORY: No accessory muscle use. Bilateral congestion and ronchi, R base crackles GASTROINTESTINAL: Abdomen soft, non-tender, nondistended. MUSCULOSKELETAL: Extremities without edema. No obvious deformities. NEUROLOGICAL: Awake and alert. No obvious cranial nerve deficits. 1 out of 5 muscle strength in the arms and legs. answers yes most of the times but not sure if he always understands what I'm asking PSYCHIATRIC: calm A/P Problem List: (1) Congestive heart failure with cardiomyopathy ICD Code: I50.9 Status: Acute (2) Renal insufficiency ICD Code: N28.9 Status: Acute Assessment and Plan -Acute on chronic systolic heart failure with history of cardiomyopathy with known ejection fraction of 25% status post AICD, -Pleural effusion- pulm following, s/p left thoracentesis (550ml) on 09/19. fluid cx pending. -Cardiorenal syndrome -Anoxic encephalopathy- s/p Lasix, on Coreg 12.5 mg twice a day, Eliquis -Diabetes type 2 continue on insulin regimen. resumed levemir, continue sliding scale, switch to heart healthy and diabetic diet. -SIXTO: Gentle IVF's. Renal Us negative. Nephrology consult appreciated and has ok'ed resuming diuretic. Will restart IV lasix 40mg IV daily for now. Monitor. repeat AM labs -chronic kidney disease. Cr 1.66 today -Hyponatremia- Monitor lytes. improved -Hyperkalemia: s/p kayexelate x one, K 4.9 today. monitor. -? UTI: urine cx growling gram neg rods. Pt has a condom cath in place. difficult to assess clinically if pt has a true UTI. vitals are stable. Will obtain a clean catch. If abnormal treat for UTI.Hold off on IV abx for now. -History of GI bleed in the past continue on PPI -BPH- continue Flomax Discharge Planning d/c pending further work-up and clinical improvement. Shy Alejo MD September 21, 2016 14:19
[2016-09-21] MEDS: LORazepam 0.5 MG TAB PO PRN (15:24)
[2016-09-21 16:00] VITALS: BP 115/68; PULSE 94; RESP 16; TEMP 96.5; O2SAT 94
[2016-09-21] MEDS: FUROSEMIDE 40 MG/4 ML VIAL IV PUSH SCH (16:54)
[2016-09-21] MEDS ORDERED: FUROSEMIDE 40 MG/4 ML VIAL IV PUSH SCH (18:00)
--- NOTE | 2016-09-21 18:55 | HHI.PR ---
Subjective Remarks Awake. On o2 2l. Output and electrolytes better. No chest pain Objective Vital Signs Date Time Temp Pulse Resp B/P Pulse Ox O2 Delivery O2 Flow Rate FiO2 09/21/16 16:00 96.5 94 16 115/68 94 09/21/16 12:00 96.9 86 20 112/58 98 09/21/16 11:00 Nasal Cannula 3.00 30 09/21/16 08:00 97.3 90 20 126/75 98 09/21/16 04:00 98.8 94 20 105/51 98 09/21/16 00:30 97.8 94 22 100/68 97 09/20/16 21:45 92 Nasal Cannula 3.00 09/20/16 21:00 Nasal Cannula 3.00 09/20/16 20:00 97.5 98 20 117/58 95 09/20/16 20:00 97 I/O 09/20/16 09/20/16 09/20/16 09/21/16 09/21/16 09/21/16 07:00 15:00 23:00 07:00 15:00 23:00 Intake Total 0 ml 560 ml 1144 ml 445 ml 680 ml Output Total 100 ml 425 ml 550 ml Balance -100 ml 135 ml 1144 ml 445 ml 130 ml Intake Oral 0 ml 560 ml 680 ml IV Total 1144 ml 445 ml Output Urine Total 100 ml 425 ml 550 ml # Bowel Movements 0 1 0 Result Diagram: 09/20/16 0629 09/21/16 0658 Objective Remarks This elderly averagely built white male is alert, pale and no distress HEENT: Head normocephalic. Pupils are reactive. Tongue dry. Throat was clear. Nasal mucosa clear NECK: Supple. No bruits. Mild venous distension. Trachea midline. CHEST: Equal movements with an increased AP diameter, and occasional basilar crackles. HEART: The heart sounds are regular S1-S2 with apical systolic murmur 2 x 6. ABDOMEN: Soft and protuberant without masses. No organomegaly or tenderness. Bowel sounds are active. EXTREMITIES: Edema 1+ . There is no clubbing, decreased peripheral pulses. Reflexes are 1+ with no gross motor deficits. NEUROLOGIC: alert. No focal deficit RECTAL: Exam is deferred. SKIN: Cool and dry. Assessment and Plan Assessment and Plan IMPRESSION 1. Congestive heart failure with acute exacerbation 2. Cardiomyopathy 3. History of diabetes mellitus 4. Chronic obstructive pulmonary disease with emphysema 5. Respiratory failure, chronic 6. History of prostatic hypertrophy Plan : 1. O2 at 3 L 2. Continue nebs qid , duoneb. 3. D/C Bipap at HS 4. Resume anticoagulants. 5. Continue Diuretic daily. 6. D/C Zithromax 7. Cautious hydration Elder Wiggins MD September 21, 2016 18:55
[2016-09-21 20:00] VITALS: BP 111/61; PULSE 93; PULSE 94; RESP 20; TEMP 97.6; O2SAT 96
[2016-09-21] MEDS: PRAVASTATIN SOD 40 MG TAB PO SCH (21:00)
[2016-09-21] MEDS: INSULIN DETEMIR 100 UNITS/ML VIAL SQ SCH (21:01)
[2016-09-21] MEDS: LATANOPROST 0.005% OPHT SOLN 2.5 ML BTL RIGHT EYE SCH (21:03)
[2016-09-22] VITALS (16 sets, daily range): BP systolic 99–141; BP diastolic 50–65; PULSE 76–94; RESP 16–20; TEMP 97–97.4; O2SAT 90–100
[2016-09-22] MEDS: LORazepam 0.5 MG TAB PO PRN (01:52)
[2016-09-22] MEDS: LEVOTHYROXINE SODIUM 50 MCG TAB PO SCH (05:38)
[2016-09-22] MEDS: LOW DOSE INSULIN NOVOLOG SUPPLEMENTAL SCALE SQ SCH ×4 (05:41→20:43)
[2016-09-22 08:42] LABS: AUTOMATED NEUTROPHIL # 6.9 TH/MM3 (1.8-7.7); BASOPHIL % 0.1 % (0.0-2.0); EOSINOPHIL # 0.1 TH/MM3 (0-0.4); EOSINOPHIL % 1.4 % (0.0-4.0); HEMATOCRIT 34.2 % (39.0-51.0); HEMO FLAGS DIFF FINAL; LYMPH % 9.3 % (9.0-44.0); LYMPHOCYTE # 0.8 TH/MM3 (1.0-4.8); MEAN CELL VOLUME 98.4 FL (80.0-100.0); MEAN CORPUSCULAR HEMOGLOBIN 30.3 PG (27.0-34.0); MEAN CORPUSCULAR HGB CONC 30.8 % (32.0-36.0); MONO % 13.5 % (0.0-8.0); NEUT % 75.7 % (16.0-70.0); PLATELET COUNT 344 TH/MM3 (150-450); RED BLOOD COUNT 3.47 MIL/MM3 (4.50-5.90); RED CELL DISTRIBUTION WIDTH 18.5 % (11.6-17.2); WHITE BLOOD COUNT 9.1 TH/MM3 (4.0-11.0)
[2016-09-22] MEDS: BRIMONIDINE TARTRATE 0.2% OPHT SOLN 5 ML BTL RIGHT EYE SCH ×3 (09:00→20:54)
[2016-09-22] MEDS: INSULIN DETEMIR 100 UNITS/ML VIAL SQ SCH ×2 (09:00→20:42)
[2016-09-22] MEDS: PANTOPRAZOLE SOD 20 MG DELAYED RELEASE TAB PO SCH (09:00)
[2016-09-22] MEDS: DOCUSATE SODIUM 100 MG CAP PO SCH ×2 (09:00→20:41)
[2016-09-22] MEDS: TIMOLOL MALEATE 0.5% OPHT SOLN 5 ML BTL RIGHT EYE SCH ×3 (09:00→20:53)
[2016-09-22 09:04] LABS: ANION GAP 3 MEQ/L (5-15); BICARBONATE GREATER THAN 45.0 MEQ/L (21.0-32.0); BLOOD UREA NITROGEN 86 MG/DL (7-18); CHLORIDE 89 MEQ/L (98-107); GLOMERULAR FILTRATION RATE 42 ML/MIN (>89); POTASSIUM 4.9 MEQ/L (3.5-5.1); SODIUM (NA) 137 MEQ/L (136-145)
[2016-09-22] MEDS: ASCORBIC ACID 500 MG TAB PO SCH ×2 (09:36→20:41)
[2016-09-22] MEDS: ISOSORBIDE MONONITRATE 30 MG TAB PO SCH (09:36)
[2016-09-22] MEDS: LACTULOSE SYRUP 20 GM/30 ML CUP PO SCH (09:36)
[2016-09-22] MEDS: TAMSULOSIN HCL 0.4 MG CAP PO SCH (09:36)
[2016-09-22] MEDS: FERROUS SULFATE 325 MG (65 MG ELEMENTAL IRON) TAB PO SCH (09:36)
[2016-09-22] MEDS: CARVEDILOL 12.5 MG TAB PO SCH ×2 (09:36→20:41)
[2016-09-22] MEDS: FUROSEMIDE 40 MG/4 ML VIAL IV PUSH SCH (09:37)
[2016-09-22] MEDS: MAGNESIUM OXIDE 400 MG TAB PO SCH (11:00)
--- NOTE | 2016-09-22 11:54 | HHI.PR ---
Subjective Remarks Patient seen and examined this morning. He was alert this morning and able to eat breakfast and his am meds. Since then had been more lethargic. 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 Reviewed EMR patient was DNR on admission, but then changed overnight on 09/15. The patient does not awaken to commands or sternal rub. Objective Vital Signs Date Time Temp Pulse Resp B/P Pulse Ox O2 Delivery O2 Flow Rate FiO2 09/22/16 09:40 92 09/22/16 09:40 Nasal Cannula 3.00 09/22/16 08:00 97.3 94 20 128/60 96 09/22/16 04:00 Nasal Cannula 3.00 09/22/16 04:00 97.4 94 18 141/59 94 09/22/16 00:00 97.4 93 18 118/56 96 09/22/16 00:00 Nasal Cannula 3.00 09/21/16 20:00 Nasal Cannula 3.00 09/21/16 20:00 93 09/21/16 20:00 97.6 94 20 111/61 96 09/21/16 16:00 96.5 94 16 115/68 94 09/21/16 12:00 96.9 86 20 112/58 98 I/O 09/21/16 09/21/16 09/21/16 09/22/16 09/22/16 09/22/16 07:00 15:00 23:00 07:00 15:00 23:00 Intake Total 445 ml 680 ml 475 ml Output Total 550 ml 150 ml 600 ml Balance 445 ml 130 ml 325 ml -600 ml Intake Oral 680 ml IV Total 445 ml 475 ml Output Urine Total 550 ml 150 ml 600 ml # Bowel Movements 0 0 0 Result Diagram: 09/22/16 0645 09/22/16 0645 Imaging Last Impressions Renal Ultrasound 09/19/16 0000 Signed Impressions: Service Date/Time: September 14:31 - CONCLUSION: 1. Renal ultrasound unremarkable except for trace fluid around the right kidney. Jorge Pearce MD Chest X-Ray 09/19/16 0000 Signed Impressions: Service Date/Time: September 12:41 - CONCLUSION: Cardiomegaly with improving pulmonary edema. No pneumothorax. Osbaldo Abebe MD Chest Ultrasound 09/16/16 0000 Signed Impressions: Service Date/Time: Friday, September 16, 2016 19:49 - CONCLUSION: Moderate left pleural effusion marked for thoracentesis. Scott Leblanc MD Objective Remarks GENERAL: on bipap, does not respond to pain or sternal rub SKIN: Warm and dry. HEAD: Normocephalic. EYES: No scleral icterus. No injection or drainage. NECK: Supple, trachea midline. No JVD or lymphadenopathy. CARDIOVASCULAR: Regular rate and rhythm without murmurs, gallops, or rubs. RESPIRATORY: bilateral lateral breath sounds are coarse, but no rales or wheezing is appreciated. GASTROINTESTINAL: Abdomen soft and nondistended. MUSCULOSKELETAL: No cyanosis, or edema. BACK: Nontender without obvious deformity. No CVA tenderness. A/P Problem List: (1) Hypoxic ICD Code: R09.02 (2) SOB (shortness of breath) ICD Code: R06.02 (3) COPD (chronic obstructive pulmonary disease) ICD Code: J44.9 (4) Ischemic cardiomyopathy ICD Code: I25.5 (5) Acute respiratory failure with hypoxia ICD Code: J96.01 Assessment and Plan 70 yo male with- - Respiratory failure: now requiring bipap, ABG pH 7.27, iCH099, pO2 149, pCO2 nurse discussed results with Dr. Vincent. Will transfer to ICU. Labs placed: stat CXR, lactic acid, bmp, mag. -Acute on chronic systolic heart failure with history of cardiomyopathy with known ejection fraction of 25% status post AICD, -Pleural effusion- pulm following, s/p left thoracentesis (550ml) on 09/19. fluid cx no growth x 72 hrs, no AFB seen, no fungal elements seen. -Cardiorenal syndrome -Anoxic encephalopathy- s/p Lasix, on Coreg 12.5 mg twice a day, Eliquis -Diabetes type 2 continue on insulin regimen. resumed levemir, continue sliding scale, switch to heart healthy and diabetic diet. -SITXO: Gentle IVF's. Renal Us negative. Nephrology consult appreciated and has ok'ed resuming diuretic. Will restart IV lasix 40mg IV daily for now. Monitor. repeat AM labs -chronic kidney disease. Cr 1.64 today -Hyponatremia- Monitor lytes. improved -Hyperkalemia: s/p kayexelate x one, K 4.9 today. monitor. -? UTI: urine cx growling gram neg rods. Start rocephin 09/22 -History of GI bleed in the past continue on PPI -BPH- continue Flomax Disposition: Patient has had frequent hospitalizations. His respiratory status is worsening. Palliative care re-consulted to re-address goals. They did meet with palliative care during previous hospitalization. I discussed this case with and Mary Oliveira MD R3 September 22, 2016 11:54
[2016-09-22 11:56] LABS: BLOOD GAS BASE EXCESS 15.7 mmol/L (-2-2); BLOOD GAS CARBOXYHEMOGLOBIN 1.9 % (0-4); BLOOD GAS HCO3 43 mmol/L (22-26); BLOOD GAS METHEMOGLOBIN 0.7 % (0-2); BLOOD GAS O2 HGB SATURATION 97 % (90-100); BLOOD GAS OXYGEN CONTENT 14.6 Vol % (12.0-20.0); BLOOD GAS PCO2 97 mmHg (38-42); BLOOD GAS PO2 149 mmHg (61-120); BLOOD GAS TOTAL HGB 10.5 G/DL (12.0-16.0); TEMP CORR TO 98.6
[2016-09-22 11:57] LABS: CRITICAL VALUE YES; OXYGEN DEVICE BiPAP; VENT SETTINGS IPAP15/EPAP5
[2016-09-22 11:58] LABS: DRAW SITE LT BRACHIAL; FIO2 55 %; NUMBER OF ARTERIAL PUNCTURES 1; STAT NO
[2016-09-22] MEDS: SODIUM CHLOR 0.9% 1000 ML INJ 1,000 ML IV SCH (12:21)
--- NOTE | 2016-09-22 12:54 | HHI.PR ---
Subjective Remarks Went into respiratory failure ,Hypercapnic and now on Bipap .FIO2 40 % Poor output. Objective Vital Signs Date Time Temp Pulse Resp B/P Pulse Ox O2 Delivery O2 Flow Rate FiO2 09/22/16 09:40 92 09/22/16 09:40 Nasal Cannula 3.00 09/22/16 08:00 97.3 94 20 128/60 96 09/22/16 04:00 Nasal Cannula 3.00 09/22/16 04:00 97.4 94 18 141/59 94 09/22/16 00:00 97.4 93 18 118/56 96 09/22/16 00:00 Nasal Cannula 3.00 09/21/16 20:00 Nasal Cannula 3.00 09/21/16 20:00 93 09/21/16 20:00 97.6 94 20 111/61 96 09/21/16 16:00 96.5 94 16 115/68 94 I/O 09/21/16 09/21/16 09/21/16 09/22/16 09/22/16 09/22/16 07:00 15:00 23:00 07:00 15:00 23:00 Intake Total 445 ml 680 ml 475 ml Output Total 550 ml 150 ml 600 ml Balance 445 ml 130 ml 325 ml -600 ml Intake Oral 680 ml IV Total 445 ml 475 ml Output Urine Total 550 ml 150 ml 600 ml # Bowel Movements 0 0 0 Result Diagram: 09/22/16 0645 09/22/16 0645 Objective Remarks This elderly averagely built white male lethargic on Bipap HEENT: Head normocephalic. Pupils are reactive. Throat was clear. Nasal mucosa clear NECK: Supple. No bruits. Mild venous distension. Trachea midline. CHEST: Equal movements with an increased AP diameter, and Bibasilar crackles. HEART: The heart sounds are regular S1-S2 . ABDOMEN: Soft and protuberant without masses. No organomegaly or tenderness. Bowel sounds are active. EXTREMITIES: Edema 1+ . There is no clubbing, decreased peripheral pulses. Reflexes are decreased. NEUROLOGIC: Lethargic . RECTAL: Exam is deferred. SKIN: Cool and dry. Assessment and Plan Assessment and Plan IMPRESSION 1. Congestive heart failure with acute exacerbation 2. Cardiomyopathy 3. History of diabetes mellitus 4. Chronic obstructive pulmonary disease with emphysema 5. Respiratory failure, chronic 6. History of prostatic hypertrophy 7. Respiratory Failure Plan : 1. Bipap mask and transfer to ICU. 2. Continue nebs qid , duoneb. 3. Consult morgue librarian 4. Resume anticoagulants. 5. Continue Diuretic daily. 6. Cont antibioitcs 7. CBC,BMP today and CXR Elder Wiggins MD September 22, 2016 12:54
[2016-09-22] MEDS ORDERED: cefTRIAXone INJ 1,000 MG in SODIUM CHLORIDE 0.9% INJ 100 ML IV SCH (13:00)
--- NOTE | 2016-09-22 13:07 | RADRPT ---
EXAM DATE/TIME: 09/22/2016 12:44 [facility] COMPARISON: CHEST SINGLE AP, September 19, 2016, 12:41. INDICATIONS : Shortness of breath. MEDICAL HISTORY : Myocardial infarction. Chronic obstructive pulmonary disease. Congestive heart failure. Renal failure , chronic. Diabetes mellitus type I. Afib. SURGICAL HISTORY : CABG. Pacemaker. Defibrillator. ENCOUNTER: Subsequent ACUITY: 1 day PAIN SCORE: Non-responsive. LOCATION: Bilateral chest. FINDINGS: A single view of the chest demonstrates cardiomegaly with interstitial and perihilar edema. Left basi lar density. Left-sided defibrillator and previous CABG. Osseous structures are intact. CONCLUSION: Stable chest. Osbaldo Abebe MD on September 22, 2016 at 13:04 Board Certified Radiologist. This report was verified electronically.
[2016-09-22 13:27] LABS: BLOOD UREA NITROGEN 81 MG/DL (7-18); CHLORIDE 91 MEQ/L (98-107); GLOMERULAR FILTRATION RATE 47 ML/MIN (>89); MAGNESIUM 2.7 MG/DL (1.5-2.5); POTASSIUM 4.9 MEQ/L (3.5-5.1); SODIUM (NA) 139 MEQ/L (136-145)
[2016-09-22 13:47] LABS: ANION GAP 3 MEQ/L (5-15); BICARBONATE GREATER THAN 45.0 MEQ/L (21.0-32.0)
[2016-09-22 13:54] LABS: BLOOD GAS BASE EXCESS 15.9 mmol/L (-2-2); BLOOD GAS CARBOXYHEMOGLOBIN 2.3 % (0-4); BLOOD GAS HCO3 43 mmol/L (22-26); BLOOD GAS METHEMOGLOBIN 0.9 % (0-2); BLOOD GAS O2 HGB SATURATION 96 % (90-100); BLOOD GAS PCO2 89 mmHg (38-42); BLOOD GAS PO2 113 mmHg (61-120); BLOOD GAS TOTAL HGB 10.3 G/DL (12.0-16.0); CRITICAL VALUE YES; OXYGEN DEVICE BIPAP 15IPAP/5; TEMP CORR TO 98.6
[2016-09-22 13:55] LABS: DRAW SITE RT RADIAL; FIO2 45 %; NUMBER OF ARTERIAL PUNCTURES 1; STAT YES; ULNAR PULSE PRESENT
[2016-09-22] MEDS ORDERED: Vancomycin Consult Pharmacy 1 EA OTHER SCH (15:00)
--- NOTE | 2016-09-22 15:08 | PD.CONS ---
HPI Service Critical Care Medicine Consult Requested By Reason for Consult Altered Mental Status , Resp Insufficiency Primary Care Physician Srinivas Naylor MD History of Present Illness Patient is a 70-year-old male with known history of cardiomyopathy with known ejection fraction of 25% status post AICD, chronic kidney insufficiency, diabetes type 2, BPH was sent here from rehabilitation facility for shortness of breath. Patient is seen with her sister who is his healthcare surrogate. On review of medical patient's records patient has been in here for almost every 2 weeks since last August. Last admission was 11/30 shortness of breath. He is on nasal cannula 2 L. Physical activity/tolerance very limited by his cardiac status. His baseline is 2 pillow orthopnea on and off leg swelling. His sister apparently called the [place] [facility] this morning the patient called her and stated shortness of breath and some chest discomfort. And was sent to emergency room for for further evaluation.Patient baseline is almost total assist. No History of CVA, history of cardiopulmonary arrest in July Patient has become increasingly lethargic over the last 24 hours. The patient received Ativan 0.5 mg early this a.m.. The patient was placed on BiPAP today with PaCO2 of 97 with increasing lethargy. The patient was transferred to ICU critical care medicine's consulted for management and treatment. ROS - General Review of Systems Constitutional: DENIES: Diaphoretic episodes, Fatigue, Fever, Weight gain, Weight loss, Chills, Dizziness, Change in appetite, Night Sweats Endocrine: DENIES: Heat/cold intolerance, Polydipsia, Polyuria, Polyphagia Eyes: DENIES: Blurred vision, Diplopia, Eye inflammation, Eye pain, Vision loss , Photosensitivity, Double Vision Ears, nose, mouth, throat: COMPLAINS OF: Hearing loss (hard of hearing) Respiratory: COMPLAINS OF: Shortness of breath (baseline) Cardiovascular: COMPLAINS OF: Chest pain, Dyspnea on Exertion, Lower Extremity Edema, Orthopnea Gastrointestinal: DENIES: Abdominal pain, Black stools, Bloody stools, Constipation, Diarrhea, Nausea, Vomiting, Difficulty Swallowing, Anorexia Genitourinary: DENIES: Sexual dysfunction, Urinary frequency, Urinary incontinence, Urgency, Hematuria, Dysuria, Nocturia, Penile Discharge, Testicular Pain, Testicular Swelling Musculoskeletal: DENIES: Joint pain, Muscle aches, Stiffness, Joint Swelling, Back pain, Neck pain Integumentary: DENIES: Abnormal pigmentation, Nail changes, Pruritus, Rash Hematologic/lymphatic: DENIES: Bruising, Lymphadenopathy Immunologic/allergic: DENIES: Eczema, Urticaria Neurologic: DENIES: Abnormal gait, Headache, Localized weakness, Paresthesias, Seizures, Speech Problems, Tremor, Poor Balance Psychiatric: DENIES: Anxiety, Confusion, Mood changes, Depression, Hallucinations, Agitation, Suicidal Ideation, Homicidal Ideation, Delusions PFSH Past Family Social History Past Medical History Dilated cardiomyopathy, pulmonary hypertension, 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 ejection fraction of 25% status post AICD about 2 months ago Status post cardiopulmonary arrest in August 04 Diabetes type 2 COPD History of GI bleed secondary to duodenitis diverticulosis and hemorrhoids History of BPH Past Surgical History No major surgeries Reported Medications See EMR Allergies: Coded Allergies: Iodinated Contrast Media (Verified Allergy, Intermediate, ITCHING, 09/15/16) Sulfa (Verified Allergy, Intermediate, RASH, 09/15/16) *MDRO Multi-Drug Resistant Organism (Verified Adverse Reaction, Unknown, ) MRSA PCR Screen POSITIVE - 08/25/2016 & 09/04/2016 Family History Noncontributory Social History Quit smoking 4 years ago Denies alcohol or IV drug use Review of Systems ROS Limitations: Clinical Condition Past Family Social History Allergies: Coded Allergies: Iodinated Contrast Media (Verified Allergy, Intermediate, ITCHING, 09/15/16) Sulfa (Verified Allergy, Intermediate, RASH, 09/15/16) *MDRO Multi-Drug Resistant Organism (Verified Adverse Reaction, Unknown, ) MRSA PCR Screen POSITIVE - 08/25/2016 & 09/04/2016 Physical Exam Vital Signs Vital Signs Date Time Temp Pulse Resp B/P Pulse Ox O2 Delivery O2 Flow Rate FiO2 09/22/16 14:37 99 40 09/22/16 12:00 97.3 86 20 103/65 98 09/22/16 09:40 92 09/22/16 09:40 Nasal Cannula 3.00 09/22/16 08:00 97.3 94 20 128/60 96 09/22/16 04:00 Nasal Cannula 3.00 09/22/16 04:00 97.4 94 18 141/59 94 09/22/16 00:00 97.4 93 18 118/56 96 09/22/16 00:00 Nasal Cannula 3.00 09/21/16 20:00 Nasal Cannula 3.00 09/21/16 20:00 93 09/21/16 20:00 97.6 94 20 111/61 96 09/21/16 16:00 96.5 94 16 115/68 94 Physical Exam GENERAL: Elderly gentleman lethargic of stated appropriate age, arousable by gently shaking, answering questions appropriately SKIN: Warm and dry. HEAD: Atraumatic. Normocephalic. EYES: Pupils equal and round. No scleral icterus. No injection or drainage. ENT: No nasal bleeding or discharge. Mucous membranes pink and moist. NECK: Trachea midline. No JVD. CARDIOVASCULAR: Normal rate, regular rhythm. RESPIRATORY: No accessory muscle use. Clear to auscultation, ralses noted in bases. Breath sounds equal bilaterally. On BiPAP 15/5 .40 GASTROINTESTINAL: Abdomen soft, non-tender, nondistended. No guarding. MUSCULOSKELETAL: Extremities without clubbing, cyanosis, or edema. No obvious deformities. NEUROLOGICAL: Awake and alert. RASS 0. No gross focal/sensory deficits. Follows commands in all 4 extremities. Laboratory Laboratory Tests Test 09/22/16 09/22/16 09/22/16 09/22/16 06:45 11:44 12:30 13:48 White Blood Count 9.1 Red Blood Count 3.47 Hemoglobin 10.5 Hematocrit 34.2 Mean Corpuscular Volume 98.4 Mean Corpuscular Hemoglobin 30.3 Mean Corpuscular Hemoglobin 30.8 Concent Red Cell Distribution Width 18.5 Platelet Count 344 Mean Platelet Volume 8.8 Neutrophils (%) (Auto) 75.7 Lymphocytes (%) (Auto) 9.3 Monocytes (%) (Auto) 13.5 Eosinophils (%) (Auto) 1.4 Basophils (%) (Auto) 0.1 Neutrophils # (Auto) 6.9 Lymphocytes # (Auto) 0.8 Monocytes # (Auto) 1.2 Eosinophils # (Auto) 0.1 Basophils # (Auto) 0.0 CBC Comment DIFF FINAL Differential Comment Sodium Level 137 139 Potassium Level 4.9 4.9 Chloride Level 89 91 Carbon Dioxide Level GREATER THAN GREATER THAN 45.0 45.0 Anion Gap 3 3 Blood Urea Nitrogen 86 81 Creatinine 1.64 1.47 Estimat Glomerular Filtration 42 47 Rate Random Glucose 200 221 Calcium Level 8.8 8.9 Blood Gas Puncture Site LT BRACHIAL RT RADIAL Blood Gas Patient Temperature 98.6 98.6 Blood Gas HCO3 43 43 Blood Gas Base Excess 15.7 15.9 Blood Gas Oxygen Saturation 97 96 Arterial Blood pH 7.27 7.30 Arterial Blood Partial 97 89 Pressure CO2 Arterial Blood Partial 149 113 Pressure O2 Arterial Blood Oxygen Content 14.6 14.0 Arterial Blood 1.9 2.3 Carboxyhemoglobin Arterial Blood Methemoglobin 0.7 0.9 Blood Gas Hemoglobin 10.5 10.3 Oxygen Delivery Device BiPAP BIPAP 15IPAP/5 Blood Gas Ventilator Setting IPAP15/EPAP5 Blood Gas Inspired Oxygen 55 45 Lactic Acid Level 0.9 Magnesium Level 2.7 Date/Time Procedure Status Source Growth 09/20/16 20:45 Urine Culture - Final Complete Urine Clean Catch 09/19/16 12:30 Gram Stain - Final Complete Fluid Pleural Fluid 09/19/16 12:30 Body Fluid Culture - Final Complete Fluid Pleural Fluid NO GROWTH IN 72 HRS.--AEROBICALLY OR ... 09/19/16 12:30 Fungal Smear - Final Resulted Fluid Pleural Fluid NO FUNGAL ELEMENTS SEEN. 09/19/16 12:30 Fungal Culture Resulted Fluid Pleural Fluid Pending 09/19/16 12:30 Acid Fast Stain - Final Resulted Fluid Pleural Fluid NO ACID FAST BACILLI SEEN 09/19/16 12:30 Mycobacterial Culture Resulted Fluid Pleural Fluid Pending Result Diagram: 09/22/16 0645 09/22/16 1230 Imaging Last 24 hours Impressions Chest X-Ray 09/22/16 0000 Signed Impressions: Service Date/Time: Thursday, September 22, 2016 12:44 - CONCLUSION: Stable chest. Osbaldo Abebe MD Septic Shock Reassessment Heart: Regular rate and rhythm Lungs: Crackles Peripheral Pulses: Bounding Right Radial Bounding Left Radial Bounding Right Dorsalis Pedis Bounding Left Dorsalis Pedis Capillary Refill: Brisk Assessment and Plan Assessment and Plan ASSESSMENT Metabolic encephalopathy Hypercapnic Respiratory Failure CO2 narcosis COPD exacerbation Cardiomyopathy Diabetes mellitus COPD with emphysema Cardiorenal syndrome Acute on chronic systolic heart failure History of CABG with AICD UTI Sepsis Glaucoma Pulmonary edema Plan Neuro Neurochecks per ICU protocol Discontinue Ativan Avoid sedatives History of hyponatremia, with resolution and 48 hours- closely monitor neuro function, if not resolved with resolution of CO2 consider CT or MRI to rule out ventral pontine myelinolysis CV Follow-up last interrogation of AICD Maintain MAP greater than 65 mmHg Ejection fraction 20% Continue statin, and carvedilol Elliquis was discontinued 4 days ago per primary service Respiratory 09/22 chest [id number] with interstitial and perihilar edema Repeat ABG-monitor CO2 status will give 1 dose of Diamox, bicarbonate 42 Maintain head of bed 30 Pulmonary following-Dr. Vincent Begin methylprednisolone 60 mg every 12hr ABG 09/22 PaCo2 97->89-88 09/22 Emergent Intubation- 8.0, no resolution of hypercarbia, persistent somnolence GI Protonix for GI prophylaxis Zofran for nausea Maintain NPO status Bowel regimen Heme/ID Urine culture Gram-negative rods Pleural fluid-elevated WBCs Begin empiric cefepime, and vancomycin-discontinue Rocephin Follow up lactate level Renal Maintain Damon Discontinue 0.9NS @ 30/hr Continue Lasix twice a day Strict I&O Creatinine 1.47 slightly improved today, continue to monitor Endocrine Increase Detrimir 7u BID GI prophylaxis Protonix IV DVT prophylaxis SCD's Dispo: I talked with the patient's 3 siblings, including the health care surrogate, updated them on his medical status and impending respiratory failure and the need for intubation and possible vasoactive medications for cardiac support. and they requested aggressive measures to include intubation. This patient remains critically ill with one or more organ systems which are or may become a threat to life. I have spent in excess of 45 minutes discontinuously in the care and management of this patient. This time is exclusive of procedures, and includes, but is not limited to, evaluation of the patient, review of the medical record, discussions with family, consultants, nursing staff, or respiratory therapy, and documentation in the medical record. Code Status Full Discussed Condition With [employer] at bedside Radha Hewitt MD September 22, 2016 15:08
[2016-09-22] MEDS: CEFEPIME INJ 2,000 MG in SODIUM CHLORIDE 0.9% INJ 100 ML IV SCH ×2 (15:39→23:45)
[2016-09-22] MEDS: VANCOMYCIN INJ 2,000 MG in SODIUM CHLORID 0.9% 500 ML INJ 500 ML IV SCH (16:00)
[2016-09-22] MEDS ORDERED: ONDANSETRON HCL 4 MG/2 ML VIAL IV PUSH PRN (16:00)
[2016-09-22 16:14] LABS: BLOOD GAS BASE EXCESS 16.4 mmol/L (-2-2); BLOOD GAS CARBOXYHEMOGLOBIN 2.3 % (0-4); BLOOD GAS HCO3 43 mmol/L (22-26); BLOOD GAS O2 HGB SATURATION 95 % (90-100); BLOOD GAS OXYGEN CONTENT 13.8 Vol % (12.0-20.0); BLOOD GAS PCO2 88 mmHg (38-42); BLOOD GAS PO2 99 mmHg (61-120); BLOOD GAS TOTAL HGB 10.3 G/DL (12.0-16.0); TEMP CORR TO 98.6
[2016-09-22 16:15] LABS: CRITICAL VALUE YES; DRAW SITE RT RADIAL; FIO2 40 %; NUMBER OF ARTERIAL PUNCTURES 1; OXYGEN DEVICE BIPAP; STAT NO; ULNAR PULSE PRESENT; VENT SETTINGS IPAP+15/EPAP+5
[2016-09-22] MEDS ORDERED: ETOMIDATE 40 MG/20 ML VIAL ONE (16:34)
[2016-09-22] MEDS ORDERED: ROCURONIUM INJ 50 MG/5 ML VIAL ONE (16:37)
[2016-09-22] MEDS ORDERED: ETOMIDATE 20 MG/10 ML VIAL IV PUSH ONE (16:45)
[2016-09-22] MEDS ORDERED: ROCURONIUM INJ 100 MG/10 ML VIAL IV ONE (16:45)
[2016-09-22] MEDS ORDERED: fentaNYL DRIP 250 ML IV SCH (17:00)
--- NOTE | 2016-09-22 17:05 | PD.PROCEDR ---
Procedure Note Procedure Endotracheal Intubation Diagnosis: CHF ,Hypercapnic Respiratory failure Indications: Same Consent: Patient and family Anesthesia: see [facility] Description of the Procedure: The patient was positioned in the sniffing position. Pre-oxygenation was performed using a BVM 100%. Anesthesia was induced via rapid sequence. A Glidescope 4 was used for laryngoscopy and a Grade 1 view was obtained. A 8.0 cuffed endotracheal tube was inserted atraumatically through the vocal cords. Confirmation of correct endotracheal tube placement was made by equal and bilateral breath sounds and colorimetric CO2 detection. The endotracheal tube was secured at 23 cm at the teeth. There were no immediate complications noted. The patient remained hemodynamically stable throughout the procedure. A chest x-ray has been ordered. I personally performed the procedure. Radha Hewitt MD September 22, 2016 17:05
--- NOTE | 2016-09-22 17:59 | RADRPT ---
EXAM DATE/TIME: 09/22/2016 17:05 [facility] COMPARISON: CHEST SINGLE AP, September 22, 2016, 12:44. INDICATIONS : E-T tube placement. MEDICAL HISTORY : Myocardial infarction. Chronic obstructive pulmonary disease. Congestive heart failure. Diabetes SURGICAL HISTORY : CABG. Pacemaker. ENCOUNTER: Subsequent ACUITY: 1 week PAIN SCORE: Non-responsive. LOCATION: Bilateral chest FINDINGS: The ET tube, nasogastric tube are in good position. There is cardiomegaly with moderate interstitial edema and small bilateral pleural effusions. Pacer is evident. CONCLUSION: Support apparatus in good position. Increasing congestive failure. Justin Terrazas MD FACR on September 22, 2016 at 17:55 Board Certified Radiologist. This report was verified electronically.
[2016-09-22] MEDS ORDERED: CHLORHEXIDINE GLUCONATE 2 % 1 PACK (2 CLOTHS)(extra cloths) TOPICAL PRN (19:15)
[2016-09-22] MEDS: CHLORHEXIDINE 0.12% (ORAL KIT) 15 ML CUP MT SCH (20:00)
[2016-09-22] MEDS: methylPREDNISolone SOD SUCC 125 MG/2 ML VIAL IV PUSH SCH (20:40)
[2016-09-22] MEDS: PANTOPRAZOLE SODIUM 40 MG VIAL IV PUSH SCH (20:41)
[2016-09-22] MEDS: PRAVASTATIN SOD 40 MG TAB PO SCH (20:41)
[2016-09-22] MEDS: LATANOPROST 0.005% OPHT SOLN 2.5 ML BTL RIGHT EYE SCH ×2 (20:42→20:53)
[2016-09-22 21:45] LABS: BLOOD GAS BASE EXCESS 15.3 mmol/L (-2-2); BLOOD GAS CARBOXYHEMOGLOBIN 2.7 % (0-4); BLOOD GAS HCO3 40 mmol/L (22-26); BLOOD GAS METHEMOGLOBIN 0.9 % (0-2); BLOOD GAS O2 HGB SATURATION 92 % (90-100); BLOOD GAS OXYGEN CONTENT 13.2 Vol % (12.0-20.0); BLOOD GAS PCO2 50 mmHg (38-42); BLOOD GAS PO2 64 mmHg (61-120); BLOOD GAS TOTAL HGB 10.1 G/DL (12.0-16.0); FIO2 40 %; OXYGEN DEVICE VENTILATOR; TEMP CORR TO 98.6; VENT SETTINGS PRVC/IMV
[2016-09-22 21:46] LABS: DRAW SITE LT RADIAL; NUMBER OF ARTERIAL PUNCTURES 1; STAT NO; ULNAR PULSE PRESENT
[2016-09-23] VITALS (19 sets, daily range): BP systolic 93–122; BP diastolic 47–62; PULSE 75–93; RESP 16–30; TEMP 97.7–99.7; O2SAT 94–99
[2016-09-23 03:30] LABS: BACTERIA, URINE RARE /hpf; BLOOD, URINE NEG (NEG); GLUCOSE,URINE NEG (NEG); KETONE, URINE NEG (NEG); MUCUS URINE FEW /lpf (OCC); NITRITE,URINE NEG (NEG); PH, URINE 8.5 (5.0-8.5); RENAL EPITHELIAL CELLS 3 /hpf; URINE COLOR LIGHT-YELLOW (YELLW/STRAW)
[2016-09-23 03:33] LABS: COMMENT (UR) CATH-CULTURE IND; CULTURE IF INDICATED CATH CULTURE IND
[2016-09-23] MEDS: CHLORHEXIDINE GLUCONATE 2 % 1 PACK (2 CLOTHS)(taper/protocol) TOPICAL SCH (04:00)
[2016-09-23] MEDS: LEVOTHYROXINE SODIUM 50 MCG TAB PO SCH (05:16)
[2016-09-23] MEDS: LOW DOSE INSULIN NOVOLOG SUPPLEMENTAL SCALE SQ SCH ×4 (05:17→21:00)
[2016-09-23] MEDS: CEFEPIME INJ 2,000 MG in SODIUM CHLORIDE 0.9% INJ 100 ML IV SCH ×3 (05:17→22:12)
--- NOTE | 2016-09-23 07:08 | HHI.FPPN ---
Subjective Remarks ON VENT ALERT FOLLOWS SOME COMMANDS Objective Vitals Vital Signs Date Time Temp Pulse Resp B/P Pulse Ox O2 Delivery O2 Flow Rate FiO2 09/23/16 04:15 95 50 09/23/16 02:14 95 40 09/23/16 02:00 78 09/23/16 00:00 97.7 75 16 101/49 94 09/23/16 00:00 55 09/23/16 00:00 75 09/22/16 23:37 90 55 09/22/16 22:44 92 40 09/22/16 22:00 76 09/22/16 20:00 97.0 76 16 99/50 99 09/22/16 20:00 40 09/22/16 20:00 76 09/22/16 19:37 99 40 09/22/16 19:00 99 Mechanical Ventilator 40 09/22/16 18:00 83 09/22/16 16:55 100 40 09/22/16 16:00 87 18 106/55 98 09/22/16 16:00 83 09/22/16 14:37 99 40 09/22/16 14:00 83 09/22/16 13:30 82 09/22/16 12:00 97.3 86 20 103/65 98 09/22/16 09:40 92 09/22/16 09:40 Nasal Cannula 3.00 09/22/16 08:00 97.3 94 20 128/60 96 I/O 09/22/16 09/22/16 09/22/16 09/23/16 09/23/16 09/23/16 06:59 14:59 22:59 06:59 14:59 22:59 Output Total 600 ml Balance -600 ml Output Urine Total 600 ml # Bowel Movements 0 Result Diagram: 09/22/16 0645 09/22/16 1230 Objective Remarks GENERAL: calm on vent SKIN: Warm and dry. HEAD: Atraumatic. Normocephalic. EYES: Pupils equal and round. No scleral icterus. No injection or drainage. ENT: No nasal bleeding or discharge. Mucous membranes pink and moist. NECK: Trachea midline. No JVD. CARDIOVASCULAR: Regular rate and rhythm. RESPIRATORY: No accessory muscle use. Bilateral congestion and ronchi, R base crackles GASTROINTESTINAL: Abdomen soft, non-tender, nondistended. Hepatic and splenic margins not palpable. MUSCULOSKELETAL: Extremities without clubbing, cyanosis, or edema. No obvious deformities. NEUROLOGICAL: Awake and alert. No obvious cranial nerve deficits. Motor grossly within normal limits. 1 out of 5 muscle strength in the arms and legs. PSYCHIATRIC: Appropriate mood and affect; Medications and IVs Current Medications Medications (Trade) Dose Ordered Sig/Jacek Route Start Time Stop Time Status Last Admin (NS Flush) 2 ml UNSCH PRN IVF 09/15/16 09:00 09/19/16 22:04 (Vitamin C) 500 mg BID PO 09/15/16 21:00 09/22/16 20:41 (Colace) 100 mg BID PO 09/15/16 21:00 09/21/16 20:59 (Ferrous Sulfate) 325 mg DAILY PO 09/16/16 09:00 09/22/16 09:36 (Imdur) 30 mg DAILY PO 09/15/16 10:30 09/22/16 09:36 (Lactulose Liq) 30 ml DAILY PO 09/16/16 09:00 09/22/16 09:36 (Synthroid) 50 mcg DAILY@0600 PO 09/16/16 06:00 09/23/16 05:16 (Refresh Classic 1.4-0.6% Pf Opth Soln) 1 drop TID PRN EACH EYE 09/15/16 10:15 (Flomax) 0.4 mg DAILY PO 09/16/16 09:00 09/22/16 09:36 Patient Own Medication PT OWN MED: Azopt (Brinzolami... BID RIGHT EYE 09/15/16 21:00 Hold (Mag-Ox) 500 mg DAILY@11 PO 09/15/16 11:00 09/21/16 11:20 (Pravachol) 40 mg HS PO 09/15/16 21:00 09/22/16 20:41 (Xalatan 0.005% Opth Soln) 1 drop HS RIGHT EYE 09/15/16 21:00 09/22/16 20:53 (Pill Splitter) 1 ea UNSCH PRN OTHER 09/15/16 10:45 (Alphagan 0.2% Opth Soln) 1 drop Q12HR RIGHT EYE 09/15/16 21:00 09/22/16 20:54 (Timoptic 0.5% Opth Soln) 1 drop Q12HR RIGHT EYE 09/15/16 21:00 09/22/16 20:53 (D50w (Vial) Inj) 25 ml UNSCH PRN IV PUSH 09/15/16 11:30 (Glucagon Inj) 1 mg UNSCH PRN OTHER 09/15/16 11:30 (Coreg) 12.5 mg BID PO 09/15/16 21:00 09/22/16 09:36 (Tylenol) 650 mg Q4H PRN PO 09/16/16 14:30 09/19/16 08:57 (Ativan) 0.5 mg Q6H PRN PO 09/16/16 14:30 09/22/16 01:52 (Lasix Inj) 40 mg DAILY IV PUSH 09/21/16 18:00 09/22/16 09:37 Methylprednisolone Sodium Succinate 60 mg 60 mg Q12H IV PUSH 09/22/16 20:00 09/22/16 20:40 Pharmacy Profile Note 0 ml @ 0 mls/hr UNSCH OTHER 09/22/16 15:00 Cefepime HCl 2000 mg/Sodium Chloride 100 ml @ 200 mls/hr Q8H IV 09/22/16 15:00 09/23/16 05:17 (Vancomycin Inj/ NS 500 ml Inj) 520 ml @ 250 mls/hr Q24H IV 09/22/16 16:00 09/22/16 16:00 Miscellaneous Information SPECIFIC LAB TO BE DRAWN:VANCOMYIN TROUGH DATE TO... ONCE ONCE .XX 09/26/16 15:45 09/26/16 15:46 (Levemir Inj) 7 units Q12HR SQ 09/22/16 21:00 09/22/16 20:42 (Protonix Inj) 40 mg Q24H IV PUSH 09/22/16 21:00 09/22/16 20:41 Ondansetron HCl 4 mg 4 mg Q6HR PRN IV PUSH 09/22/16 16:00 (fentaNYL DRIP) 250 ml @ 0 mls/hr TITRATE IV 09/22/16 17:00 (Peridex 0.12% Liq) 15 ml BID@08,20 MT 09/22/16 20:00 09/22/16 20:00 Miscellaneous Information Patient in critical care unit? Ass... [id number] .XX 5/14/17 19:15 (Chlorhexidine 2% Cloth) 3 pack DAILY@04 TOPICAL 09/23/16 04:00 09/27/16 04:01 09/23/16 04:00 (Chlorhexidine 2% Cloth) 3 pack UNSCH PRN TOPICAL 09/22/16 19:15 09/27/16 19:03 A/P Assessment and Plan -VDRF: VENT PER CCM -HYPERCARBIA -UTI -SEPSIS -Acute on chronic systolic heart failure with history of cardiomyopathy with known ejection fraction of 25% status post AICD, -Pleural effusion- consult pulm, diurese, thoracentesis 09/19, -Cardiorenal syndrome -Anoxic encephalopathy- Lasix 40 mg every 12 monitor output, Coreg 12.5 mg twice a day, Eliquis -Diabetes type 2 continue on insulin regimen -SIXTO: Gentle IVF's. Hold diuretics, am labs. Renal Us negative. Nephrology consult appreciated. -chronic kidney disease. -Hyponatremia- Monitor lytes -Hyperkalemia: s/p kayexelate x one, recheck K -History of GI bleed in the past continue on PPI -BPH- continue Flomax Srinivas Naylor MD September 23, 2016 07:08
[2016-09-23] MEDS: CHLORHEXIDINE 0.12% (ORAL KIT) 15 ML CUP MT SCH ×2 (08:00→20:00)
--- NOTE | 2016-09-23 08:15 | RADRPT ---
EXAM DATE/TIME: 09/23/2016 07:38 [facility] COMPARISON: CHEST SINGLE AP, September 22, 2016, 17:05. INDICATIONS : Respiratory failure. MEDICAL HISTORY : Myocardial infarction. Chronic obstructive pulmonary disease. Congestive SURGICAL HISTORY : CABG. Pacemaker. ENCOUNTER: Subsequent ACUITY: 1 week PAIN SCORE: Non-responsive. LOCATION: Bilateral chest FINDINGS: A single portable frontal view of the chest shows persistent cardiomegaly bibasilar pulmonary infiltr ates. Tiny effusions. Tip of the endotracheal tube 3 cm proximal to the arvin. Nasogastric tube cour ses off the inferior margin of the film. Left-sided pacing device. No pneumothorax. Median sternotomy wires. CONCLUSION: Unchanged pulmonary edema. Nando Welsh Jr., MD on September 23, 2016 at 8:12 Board Certified Radiologist. This report was verified electronically.
[2016-09-23] MEDS: DOCUSATE SODIUM 100 MG CAP PO SCH ×2 (08:55→21:00)
[2016-09-23] MEDS: methylPREDNISolone SOD SUCC 125 MG/2 ML VIAL IV PUSH SCH ×2 (08:55→22:08)
[2016-09-23] MEDS: FERROUS SULFATE 325 MG (65 MG ELEMENTAL IRON) TAB PO SCH (08:55)
[2016-09-23] MEDS: TAMSULOSIN HCL 0.4 MG CAP PO SCH (08:55)
[2016-09-23] MEDS: FUROSEMIDE 40 MG/4 ML VIAL IV PUSH SCH (08:55)
[2016-09-23] MEDS: ISOSORBIDE MONONITRATE 30 MG TAB PO SCH (08:55)
[2016-09-23] MEDS: CARVEDILOL 12.5 MG TAB PO SCH ×2 (08:55→22:08)
[2016-09-23] MEDS: LACTULOSE SYRUP 20 GM/30 ML CUP PO SCH (08:55)
[2016-09-23] MEDS: ASCORBIC ACID 500 MG TAB PO SCH ×2 (08:55→22:09)
[2016-09-23] MEDS: INSULIN DETEMIR 100 UNITS/ML VIAL SQ SCH ×2 (08:56→21:00)
[2016-09-23] MEDS: SODIUM CHLORIDE 0.9% FLUSH 10 ML FLUSH IVF PRN (08:56)
[2016-09-23 09:10] LABS: HEMATOCRIT 31.1 % (39.0-51.0); MEAN CELL VOLUME 94.8 FL (80.0-100.0); MEAN CORPUSCULAR HEMOGLOBIN 31.2 PG (27.0-34.0); MEAN CORPUSCULAR HGB CONC 32.9 % (32.0-36.0); PLATELET COUNT 344 TH/MM3 (150-450); RED BLOOD COUNT 3.28 MIL/MM3 (4.50-5.90); RED CELL DISTRIBUTION WIDTH 18.1 % (11.6-17.2); REVIEW FLAG FINAL
[2016-09-23 09:23] LABS: BICARBONATE 40.5 MEQ/L (21.0-32.0); MAGNESIUM 2.6 MG/DL (1.5-2.5); POTASSIUM 4.4 MEQ/L (3.5-5.1)
[2016-09-23] MEDS ORDERED: POTASSIUM PHOSPHATE MONOBASIC 500 MG TAB PO PRN (10:00)
[2016-09-23] MEDS ORDERED: MAGNESIUM SULFATE INJ 2 GM in SODIUM CHLORIDE 0.9% INJ 96 ML IV PRN (10:00)
[2016-09-23] MEDS ORDERED: MAGNESIUM OXIDE 400 MG TAB PO PRN (10:00)
[2016-09-23] MEDS ORDERED: POTASSIUM PHOSPHATE MONOBASIC 500 MG TAB PO/TUBE PRN (10:00)
[2016-09-23] MEDS ORDERED: SODIUM PHOSPHATE INJ 30 MMOL in SODIUM CHLOR 0.9% 250 ML INJ 240 ML IV PRN (10:00)
[2016-09-23] MEDS ORDERED: POTASSIUM CHLOR 40 MEQ PREMIX 100 ML IV PRN ×2 (10:00)
[2016-09-23] MEDS ORDERED: POTASSIUM CHLOR 20 MEQ PREMIX 100 ML IV PRN ×2 (10:00)
[2016-09-23] MEDS ORDERED: POTASSIUM CHLORIDE 25 MEQ EFFERVESCENT TAB PO PRN (10:00)
[2016-09-23] MEDS ORDERED: MAGNESIUM SULFATE INJ 4 GM in SODIUM CHLORIDE 0.9% INJ 92 ML IV PRN (10:00)
[2016-09-23] MEDS: MAGNESIUM OXIDE 400 MG TAB PO SCH (10:12)
--- NOTE | 2016-09-23 10:13 | HHI.CCPN ---
Subjective Remarks/Hospital Course Patient is a 70-year-old male with known history of cardiomyopathy with known ejection fraction of 25% status post AICD, chronic kidney insufficiency, diabetes type 2, BPH was sent here from rehabilitation facility for shortness of breath. Patient is seen with her sister who is his healthcare surrogate. On review of medical patient's records patient has been in here for almost every 2 weeks since last August. Last admission was 11/30 shortness of breath. He is on nasal cannula 2 L. Physical activity/tolerance very limited by his cardiac status. His baseline is 2 pillow orthopnea on and off leg swelling. His sister apparently called the half-way this morning the patient called her and stated shortness of breath and some chest discomfort. And was sent to emergency room for for further evaluation.Patient baseline is almost total assist. No History of CVA, history of cardiopulmonary arrest in July Patient has become increasingly lethargic over the last 24 hours. The patient received Ativan 0.5 mg early this a.m.. The patient was placed on BiPAP today with PaCO2 of 97 with increasing lethargy. The patient was transferred to ICU critical care medicine's consulted for management and treatment. Subjective 09/23: Overnight the patient diureses approximately 1300+ cc of urine. The patient was maintained on mechanical ventilation and has been now transitioned to CPAP trials early this a.m.. ABG pending this a.m.. The patient is alert GCS 11 T, following commands. Plans for extubation this a.m.. Objective Vital Signs Date Time Temp Pulse Resp B/P Pulse Ox O2 Delivery O2 Flow Rate FiO2 09/23/16 08:05 97 50 09/23/16 06:00 81 09/23/16 04:00 99.7 16 93/47 09/22/16 19:00 Mechanical Ventilator 09/22/16 09:40 3.00 Intake and Output 09/22/16 09/22/16 09/23/16 08:00 16:00 00:00 Output Total 600 ml Balance -600 ml Result Diagram: 09/23/16 0833 09/23/16 0833 Other Results Microbiology Date/Time Procedure Status Source Growth 09/20/16 20:45 Urine Culture - Final Complete Urine Clean Catch Laboratory Tests Test 09/22/16 09/22/16 09/22/16 09/22/16 11:44 13:48 16:02 21:30 Blood Gas Puncture Site LT BRACHIAL RT RADIAL RT RADIAL LT RADIAL Blood Gas Patient Temperature 98.6 98.6 98.6 98.6 Blood Gas HCO3 43 mmol/L 43 mmol/L 43 mmol/L 40 mmol/L (22-26) (22-26) (22-26) (22-26) Blood Gas Base Excess 15.7 mmol/L 15.9 mmol/L 16.4 mmol/L 15.3 mmol/L (-2-2) (-2-2) (-2-2) (-2-2) Blood Gas Oxygen Saturation 97 % (90-100) 96 % (90-100) 95 % (90-100) 92 % (90- 100) Arterial Blood pH 7.27 7.30 7.31 7.51 (7.380-7.420) (7.380-7.420) (7.380-7.420) (7.380-7.420) Arterial Blood Partial 97 mmHg (38-42) 89 mmHg (38-42) 88 mmHg (38-42) 50 mmHg ( 38-42) Pressure CO2 Arterial Blood Partial 149 mmHg 113 mmHg 99 mmHg 64 mmHg Pressure O2 (61-120) (61-120) (61-120) (61-120) Arterial Blood Oxygen Content 14.6 Vol % 14.0 Vol % 13.8 Vol % 13.2 Vol % (12.0-20.0) (12.0-20.0) (12.0-20.0) (12.0-20.0) Arterial Blood 1.9 % (0-4) 2.3 % (0-4) 2.3 % (0-4) 2.7 % (0-4) Carboxyhemoglobin Arterial Blood Methemoglobin 0.7 % (0-2) 0.9 % (0-2) 1.0 % (0-2) 0.9 % (0-2) Blood Gas Hemoglobin 10.5 G/DL 10.3 G/DL 10.3 G/DL 10.1 G/DL (12.0-16.0) (12.0-16.0) (12.0-16.0) (12.0-16.0) Oxygen Delivery Device BiPAP BIPAP 15IPAP/5 BIPAP VENTILATOR Blood Gas Ventilator Setting IPAP15/EPAP5 IPAP+15/EPAP+5 PRVC/IMV Blood Gas Inspired Oxygen 55 % 45 % 40 % 40 % Imaging Last 24 hours Impressions Chest X-Ray 09/22/16 0000 Signed Impressions: Service Date/Time: Thursday, September 22, 2016 12:44 - CONCLUSION: Stable chest. Osbaldo Abebe MD Objective Remarks GENERAL: Elderly gentleman alert, GCS 11 T. Following commands answering yes and no questions SKIN: Warm and dry. HEAD: Atraumatic. Normocephalic. EYES: Pupils equal and round. No scleral icterus. No injection or drainage. ENT: No nasal bleeding or discharge. Mucous membranes pink and moist. NECK: Trachea midline. No JVD. Oral tracheal intubation CARDIOVASCULAR: Normal rate, regular rhythm. RESPIRATORY: No accessory muscle use. Clear to auscultation, rales noted in bases. Breath sounds equal bilaterally. On CPAP10/5 GASTROINTESTINAL: Abdomen soft, non-tender, nondistended. No guarding. MUSCULOSKELETAL: Extremities without clubbing, cyanosis, or edema. No obvious deformities. NEUROLOGICAL: Awake and alert. RASS 0. No gross focal/sensory deficits. Follows commands in all 4 extremities. Urinary Catheter: Yes Damon insert reason: ICU Pt Getting Diuretics Vascular Central Line Catheter: No A/P Assessment and Plan ASSESSMENT Metabolic encephalopathy Hypercapnic Respiratory Failure-resolved CO2 narcosis-resolved COPD exacerbation Cardiomyopathy Diabetes mellitus COPD with emphysema Cardiorenal syndrome Acute on chronic systolic heart failure History of CABG with AICD UTI Sepsis Glaucoma Pulmonary edema Plan Neuro Neurochecks per ICU protocol Discontinue Ativan Avoid sedatives GCS 11 T-alert and oriented Fentanyl infusion discontinued with plans for extubation CV Normotensive Maintain MAP greater than 65 mmHg Ejection fraction 20% Continue statin, and carvedilol Elliquis was discontinued 4 days ago per primary service BNP 1305 Respiratory SBT trial this a.m., monitor parameters plan for extubation 09/22 chest [id number] with interstitial and perihilar edema Repeat ABG-monitor CO2 status will give 1 dose of Diamox, bicarbonate 42 Maintain head of bed 30 Pulmonary following-Dr. Vincent Begin methylprednisolone 60 mg every 12hr ABG 09/22- PaCo2 97->89-88 09/22 Emergent Intubation- 8.0 F/U ABG on CPAP 7.47/52/143/38/14, SBT- NIF -38,RSBI 28, TV 480, RR 11 Plan to extubate-Place patient on BiPAP if needed 09/23 CXR -pulmonary edema GI Protonix for GI prophylaxis Zofran for nausea Bedside swallow if [id number] with clear liquid diet, then low sodium heart healthy diet Bowel regimen Heme/ID Urine culture Gram-negative rods Pleural fluid-elevated WBCs Begin empiric cefepime, and vancomycin-discontinue Rocephin Lactate level 0.9 Follow-ups blood sputum and urine cultures Renal Maintain Damon Hep-Lock IV Continue Lasix twice a day Strict I&O Creatinine 1.47-> 1.36 improved Endocrine Glucose monitoring per ICU protocol Detrimir 7u BID Sliding scale insulin low-dose regimen GI prophylaxis Protonix IV DVT prophylaxis SCD's Dispo: The patient has progressed well during the day. Status post extubation, tolerating a diet. Patient continues to have pulmonary edema but is effectively diuresing. Plan transfer to floor and a.m. Critical care medicine signed off, discussed with Dr. Diallo Level 2 Physician Radha Watson MD September 23, 2016 10:13 Radha Hewitt MD September 23, 2016 10:13 Radha Hewitt MD September 23, 2016 10:13
[2016-09-23] MEDS: BRIMONIDINE TARTRATE 0.2% OPHT SOLN 5 ML BTL RIGHT EYE SCH ×2 (10:18→22:09)
[2016-09-23] MEDS: TIMOLOL MALEATE 0.5% OPHT SOLN 5 ML BTL RIGHT EYE SCH ×2 (10:19→22:09)
--- NOTE | 2016-09-23 10:40 | PD.CONS ---
Consult Service Palliative Care . Consult Requested By Dr. Rojas . Primary Care Physician Srinivas Naylor MD . Reason for Consultation a. To assist with evaluation and management of symptoms including: dyspnea, pain. b. To assist medical decision maker(s) with: better understanding of current medical conditions; weighing benefits/burdens of medical treatment options; making medical treatment decisions. . HPI History of Present Illness Mr. Damico is a 70-year-old male with past medical history of ischemic cardiomyopathy (EF 25%) status post AICD placement, recent NSTEMI, COPD, pulmonary hypertension, hypothyroidism, hypertension, CHF, blind right eye, chronic renal insufficiency, type II diabetes, DVT LLE, GI bleed and BPH. Patient has had 4 recent hospitalizations: * 09/03/16 - 09/10/16 - shortness of breath, pulmonary edema - DC to [facility]. * 08/22/16 08/29/16 - DVT, G.I. bleed - colonoscopy (hemorrhoids). DC to [facility]. * 08/13/16 08/17/16 - G.I. bleed, syncope - transfused, EGD esophagitis. DC to [facility]. * 08/02/16 08/08/16 - NSTEMI, s/p cardiac arrest (08/04) s/p ACLS with ROSC. DC to [facility]. Patient presented to [facility] Emergency department on 09/15/16 with shortness of breath and chest pressure. Upon arrival oxygen saturation 80s, improved with nasal cannula oxygen. Laboratory findings included elevated BNP 987, elevated creatinine 1.35, sodium 127. Chest x-ray revealed left pleural effusion, cardiomegaly, pulmonary edema. Thoracentesis completed 09/19/16. Patient is admitted with CHF exacerbation, cardiomyopathy. Pulmonology, Dr. Alejo Her was consulted for hypoxia and pulmonary edema with continued medical management and BiPAP night. Nephrology, Dr. Murdock was consulted for worsening renal function likely secondary to cardio renal syndrome complicated by advanced COPD. Notes indicate hyponatremia poor prognostic indicator. Renal ultrasound unremarkable except Ceasar fluid around the right kidney. 09/22/16, patient was transferred to ICU for increasing lethargy on BiPAP with PaCO2 97. Patient later required urgent intubation. Chest x-ray with unchanged pulmonary edema. Patient was extubated 09/23/16. Palliative care is consulted to assist with further clarification of treatment goals in this patient with frequent hospitalizations and worsening clinical status. Patient seems to have some insight to his current health conditions, is able to tell me his name, confirm history, family names, remembers he came to hospital for "trouble breathing," he does not remember being on vent. He verbalizes desire for continued aggressive care and FULL CODE. . Function/Cognitive Trajectory Baseline 2 pillow orthopnea. Patient has been in and out of hospital and rehab. He is awake and alert, asking for food/ drink. He seems to have some insight to his health. . Review of Systems Constitutional: COMPLAINS OF: Fatigue, Weight loss, Change in appetite ( decreased), Generalized weakness Respiratory: COMPLAINS OF: Shortness of breath Cardiovascular: COMPLAINS OF: Chest pain, Dyspnea on Exertion, Orthopnea Gastrointestinal: COMPLAINS OF: Bloody stools (during prior admission), Anorexia Hematologic/Lymphatics: COMPLAINS OF: Bruising Past Family Social History Coded Allergies: Iodinated Contrast Media (Verified Allergy, Intermediate, ITCHING, 09/15/16) Sulfa (Verified Allergy, Intermediate, RASH, 09/15/16) *MDRO Multi-Drug Resistant Organism (Verified Adverse Reaction, Unknown, ) MRSA PCR Screen POSITIVE - 08/25/2016 & 09/04/2016 Past Medical History Dilated cardiomyopathy Pulmonary hypertension 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 Past Surgical History Cataract surgery Toe amputation CABG AICD . Reported Medications Reported Meds & Active Scripts Active Diflucan (Fluconazole) 200 Mg Tab 200 Mg PO DAILY Lactulose Liq (Lactulose) 10 Gm/15 Ml Soln 30 Ml PO DAILY Flomax (Tamsulosin HCl) 0.4 Mg Cap 0.4 Mg PO DAILY Ipratropium Neb (Ipratropium Mcalister) 0.5 Mg/2.5 Ml Amp 0.5 Mg NEB Q6HR NEB Eliquis (Apixaban) 5 Mg Tab 5 Mg PO BID Levemir Inj (Insulin Detemir) 1,000 unit/ 10 ML Vial 5 Units SQ Q12HR Colace (Docusate Sodium) 100 Mg Cap 100 Mg PO BID Ferrous Sulfate 325 Mg Tab 325 Mg PO DAILY Reported Humalog Inj (Insulin Human Lispro) 1,000 Unit/10 Ml Vial 1-9 Units SQ ACHS Max dose at bedtime:( )units; sugars< 70,(0)units; sugars 150-199,(1)unit; sugars 200-249,(3)units; sugars 250-299,(5)units; sugars 300-349,(7)units; sugars more than 349,(9)units. Azopt Opth Drops (Brinzolamide) 1% Susp 1 Drop RIGHT EYE BID Furosemide 40 Mg Tab 40 Mg PO BID Ascorbic Acid 500 Mg Tab 500 Mg PO BID Multiple Vitamin 1 Tab 1 Tab PO DAILY Omeprazole 20 Mg Tab 20 Mg PO DAILY Magnesium Oxide 500 Mg Tab 500 Mg PO DAILY Travatan Z Opth Drops (Travoprost) 0.004 % Soln 1 Drop RIGHT EYE HS Carvedilol 6.25 Mg Tab 6.25 Mg PO BID Zocor (Simvastatin) 20 Mg Tab 20 Mg PO HS Nitroglycerin SL (Nitroglycerin) 0.4 Mg Subl 0.4 Mg SL DIRECTED PRN ONE TABLET UNDER THE TONGUE NEEDED FOR CHEST PAIN, MAY REPEAT EVERY FIVE MINUTES FOR A TOTAL OF 3 DOSES OR CALL 911 IF NO RELIEF Levothyroxine (Levothyroxine Sodium) 50 Mcg Tab 50 Mcg PO DAILY Isosorbide Mononitrate ER (Isosorbide Mononitrate) 30 Mg Adriana 30 Mg PO DAILY Combigan Opth Drops (Brimonidine-Timolol Opth Drops) 0.2-0.5% Soln 1 Drop RIGHT EYE Q12HR Aspirin EC Low Dose (Aspirin) 81 Mg Tabec 81 Mg PO DAILY Refresh Opth Drops (Polyvinyl Alcohol-Povidone Opth Drops) 1.4-0.6% Drops 1 Drop EACH EYE TID PRN . Current Medications Medications (Trade) Dose Ordered Sig/Jacek Route Start Time Stop Time Status Last Admin (NS Flush) 2 ml UNSCH PRN IVF 09/15/16 09:00 09/23/16 08:56 (Vitamin C) 500 mg BID PO 09/15/16 21:00 09/23/16 08:55 (Colace) 100 mg BID PO 09/15/16 21:00 09/23/16 08:55 (Ferrous Sulfate) 325 mg DAILY PO 09/16/16 09:00 09/23/16 08:55 (Imdur) 30 mg DAILY PO 09/15/16 10:30 09/22/16 09:36 (Lactulose Liq) 30 ml DAILY PO 09/16/16 09:00 09/23/16 08:55 (Synthroid) 50 mcg DAILY@0600 PO 09/16/16 06:00 09/23/16 05:16 (Refresh Classic 1.4-0.6% Pf Opth Soln) 1 drop TID PRN EACH EYE 09/15/16 10:15 (Flomax) 0.4 mg DAILY PO 09/16/16 09:00 09/22/16 09:36 Patient Own Medication PT OWN MED: Azopt (Brinzolami... BID RIGHT EYE 09/15/16 21:00 Hold (Mag-Ox) 500 mg DAILY@11 PO 09/15/16 11:00 09/21/16 11:20 (Pravachol) 40 mg HS PO 09/15/16 21:00 09/22/16 20:41 (Xalatan 0.005% Opth Soln) 1 drop HS RIGHT EYE 09/15/16 21:00 09/22/16 20:53 (Pill Splitter) 1 ea UNSCH PRN OTHER 09/15/16 10:45 (Alphagan 0.2% Opth Soln) 1 drop Q12HR RIGHT EYE 09/15/16 21:00 09/22/16 20:54 (Timoptic 0.5% Opth Soln) 1 drop Q12HR RIGHT EYE 09/15/16 21:00 09/22/16 20:53 (D50w (Vial) Inj) 25 ml UNSCH PRN IV PUSH 09/15/16 11:30 (Glucagon Inj) 1 mg UNSCH PRN OTHER 09/15/16 11:30 (Coreg) 12.5 mg BID PO 09/15/16 21:00 09/23/16 08:55 (Tylenol) 650 mg Q4H PRN PO 09/16/16 14:30 09/19/16 08:57 (Ativan) 0.5 mg Q6H PRN PO 09/16/16 14:30 09/22/16 01:52 (Lasix Inj) 40 mg DAILY IV PUSH 09/21/16 18:00 09/23/16 08:55 Methylprednisolone Sodium Succinate 60 mg 60 mg Q12H IV PUSH 09/22/16 20:00 09/23/16 08:55 Pharmacy Profile Note 0 ml @ 0 mls/hr UNSCH OTHER 09/22/16 15:00 Cefepime HCl 2000 mg/Sodium Chloride 100 ml @ 200 mls/hr Q8H IV 09/22/16 15:00 09/23/16 05:17 (Vancomycin Inj/ NS 500 ml Inj) 520 ml @ 250 mls/hr Q24H IV 09/22/16 16:00 09/22/16 16:00 Miscellaneous Information SPECIFIC LAB TO BE DRAWN:VANCOMYIN TROUGH DATE TO... ONCE ONCE .XX 09/26/16 15:45 09/26/16 15:46 (Levemir Inj) 7 units Q12HR SQ 09/22/16 21:00 09/23/16 08:56 (Protonix Inj) 40 mg Q24H IV PUSH 09/22/16 21:00 09/22/16 20:41 Ondansetron HCl 4 mg 4 mg Q6HR PRN IV PUSH 09/22/16 16:00 (fentaNYL DRIP) 250 ml @ 0 mls/hr TITRATE IV 09/22/16 17:00 (Peridex 0.12% Liq) 15 ml BID@08,20 MT 09/22/16 20:00 09/23/16 08:00 Miscellaneous Information Patient in critical care unit? Ass... Q361D .XX 09/22/16 19:15 (Chlorhexidine 2% Cloth) 3 pack DAILY@04 TOPICAL 09/23/16 04:00 09/27/16 04:01 09/23/16 04:00 (Chlorhexidine 2% Cloth) 3 pack UNSCH PRN TOPICAL 09/22/16 19:15 09/27/16 19:03 . Family History Mother alive at 91. Substance Use Tobacco: Alcohol: Prescription med abuse: Illicits: Psychosocial History From [place]. Worked in the [employer]. his , Coty who lives in [place]. One biologic daughter, Allegra lives in [place]. 2 sisters (Nadege and Bonnie) and one brother (Anastacio) . . Spiritual/Cultural Factors Bible on bedside table. Welcomes sabianist support. . Living Will: Never completed Health Care Surrogate: Copy in medical record Durable Power of Apartment Assistant Manager: Never completed Date completed: 09/04/16 . Health Care Surrogate(s): Nadege Damico, sister, or [phone] . Today's verbally stated goals: Desires continued aggressive care. . Ethical and Legal Issues Designated healthcare surrogate, sister Nadege Damico. . Physical Exam Vital Signs Date Time Temp Pulse Resp B/P Pulse Ox O2 Delivery O2 Flow Rate FiO2 09/23/16 08:05 97 50 09/23/16 07:50 97 50 09/23/16 06:00 81 09/23/16 04:15 95 50 09/23/16 04:00 99.7 81 16 93/47 94 09/23/16 04:00 81 09/23/16 04:00 50 09/23/16 02:14 95 40 09/23/16 02:00 78 09/23/16 00:00 97.7 75 16 101/49 94 09/23/16 00:00 55 09/23/16 00:00 75 09/22/16 23:37 90 55 09/22/16 22:44 92 40 09/22/16 22:00 76 09/22/16 20:00 97.0 76 16 99/50 99 09/22/16 20:00 40 09/22/16 20:00 76 09/22/16 19:37 99 40 09/22/16 19:00 99 Mechanical Ventilator 40 09/22/16 18:00 83 09/22/16 16:55 100 40 09/22/16 16:00 87 18 106/55 98 09/22/16 16:00 83 09/22/16 14:37 99 40 09/22/16 14:00 83 09/22/16 13:30 82 09/22/16 12:00 97.3 86 20 103/65 98 . Exam CONSTITUTIONAL/GENERAL: This is an thin, frail appearing man, in no apparent distress. TUBES/LINES/DRAINS: Oxygen via NC, PIV, Damon, SCDs. SKIN: No jaundice, rashes, or lesions. Ecchymoses on upper extremities. No wounds seen anteriorly. Skin temperature appropriate. Not diaphoretic. HEAD: Atraumatic. Normocephalic. EYES: Pupils equal and round and reactive. No scleral icterus. No injection or drainage. ENT: Hearing grossly normal. Nose without bleeding or purulent drainage. No teeth. NECK: Trachea midline. CARDIOVASCULAR: Regular rate and rhythm without murmurs, gallops, or rubs. No JVD. Peripheral pulses symmetric. RESPIRATORY/CHEST: Symmetric, unlabored respirations. Rales bilateral bases. GASTROINTESTINAL: Abdomen soft, non-tender, nondistended. No guarding. Bowel sounds present. GENITOURINARY: Without palpable bladder distension. Damon catheter in place. MUSCULOSKELETAL: Extremities without clubbing, cyanosis, or edema. No mottling or clubbing. LYMPHATICS: No palpable cervical or supraclavicular adenopathy. NEUROLOGICAL: Awake and alert. Follows commands. Cognitively sharp. Moves all extremities. PSYCHIATRIC: No obvious anxiety/depression. no apparent hallucinations or other psychotic thought process. . Diagnostic Tests Laboratory Laboratory Tests Test 09/20/16 09/21/16 09/22/16 09/22/16 20:45 06:58 06:45 11:44 Urine Color YELLOW (YELLW/STRAW) Urine Turbidity CLEAR (CLEAR) Urine pH 5.0 (5.0-8.5) Urine Specific [place] 1.015 (1.002-1.035) Urine Protein NEG mg/dL (NEG-TRACE) Urine Glucose (UA) 300 mg/dL (NEG) Urine Ketones NEG mg/dL (NEG) Urine Occult Blood NEG (NEG) Urine Nitrite NEG (NEG) Urine Bilirubin NEG (NEG) Urine Urobilinogen LESS THAN 2.0 MG/DL (LESS THAN 2.0) Urine Leukocyte Esterase NEG (NEG) Urine WBC 2 /hpf (0-5) Urine Squamous Epithelial <1 /hpf (0-5) Cells Urine Amorphous Sediment RARE Urine Bacteria MOD /hpf (NONE) Microscopic Urinalysis Comment CULTURE INDICATED Sodium Level 135 MEQ/L 137 MEQ/L (136-145) (136-145) Potassium Level 4.9 MEQ/L 4.9 MEQ/L (3.5-5.1) (3.5-5.1) Chloride Level 89 MEQ/L 89 MEQ/L (98-107) (98-107) Carbon Dioxide Level 43.5 MEQ/L GREATER THAN (21.0-32.0) 45.0 MEQ/L (21.0-32.0) Anion Gap 3 MEQ/L (5-15) 3 MEQ/L (5-15) Blood Urea Nitrogen 86 MG/DL (7-18) 86 MG/DL (7-18) Creatinine 1.66 MG/DL 1.64 MG/DL (0.60-1.30) (0.60-1.30) Estimat Glomerular Filtration 41 ML/MIN (>89) 42 ML/MIN (>89) Rate Random Glucose 203 MG/DL 200 MG/DL (74-106) (74-106) Calcium Level 8.7 MG/DL 8.8 MG/DL (8.5-10.1) (8.5-10.1) White Blood Count 9.1 TH/MM3 (4.0-11.0) Red Blood Count 3.47 MIL/MM3 (4.50-5.90) Hemoglobin 10.5 GM/DL (13.0-17.0) Hematocrit 34.2 % (39.0-51.0) Mean Corpuscular Volume 98.4 FL (80.0-100.0) Mean Corpuscular Hemoglobin 30.3 PG (27.0-34.0) Mean Corpuscular Hemoglobin 30.8 % Concent (32.0-36.0) Red Cell Distribution Width 18.5 % (11.6-17.2) Platelet Count 344 TH/MM3 (150-450) Mean Platelet Volume 8.8 FL (7.0-11.0) Neutrophils (%) (Auto) 75.7 % (16.0-70.0) Lymphocytes (%) (Auto) 9.3 % (9.0-44.0) Monocytes (%) (Auto) 13.5 % (0.0-8.0) Eosinophils (%) (Auto) 1.4 % (0.0-4.0) Basophils (%) (Auto) 0.1 % (0.0-2.0) Neutrophils # (Auto) 6.9 TH/MM3 (1.8-7.7) Lymphocytes # (Auto) 0.8 TH/MM3 (1.0-4.8) Monocytes # (Auto) 1.2 TH/MM3 (0-0.9) Eosinophils # (Auto) 0.1 TH/MM3 (0-0.4) Basophils # (Auto) 0.0 TH/MM3 (0-0.2) CBC Comment DIFF FINAL Differential Comment Blood Gas Puncture Site LT BRACHIAL Blood Gas Patient Temperature 98.6 Blood Gas HCO3 43 mmol/L (22-26) Blood Gas Base Excess 15.7 mmol/L (-2-2) Blood Gas Oxygen Saturation 97 % (90-100) Arterial Blood pH 7.27 (7.380-7.420) Arterial Blood Partial 97 mmHg (38-42) Pressure CO2 Arterial Blood Partial 149 mmHg Pressure O2 (61-120) Arterial Blood Oxygen Content 14.6 Vol % (12.0-20.0) Arterial Blood 1.9 % (0-4) Carboxyhemoglobin Arterial Blood Methemoglobin 0.7 % (0-2) Blood Gas Hemoglobin 10.5 G/DL (12.0-16.0) Oxygen Delivery Device BiPAP Blood Gas Ventilator Setting IPAP15/EPAP5 Blood Gas Inspired Oxygen 55 % Test 09/22/16 09/22/16 09/22/16 09/22/16 12:30 13:48 14:10 16:02 Sodium Level 139 MEQ/L (136-145) Potassium Level 4.9 MEQ/L (3.5-5.1) Chloride Level 91 MEQ/L (98-107) Carbon Dioxide Level GREATER THAN 45.0 MEQ/L (21.0-32.0) Anion Gap 3 MEQ/L (5-15) Blood Urea Nitrogen 81 MG/DL (7-18) Creatinine 1.47 MG/DL (0.60-1.30) Estimat Glomerular Filtration 47 ML/MIN (>89) Rate Random Glucose 221 MG/DL (74-106) Lactic Acid Level 0.9 mmol/L (0.4-2.0) Calcium Level 8.9 MG/DL (8.5-10.1) Magnesium Level 2.7 MG/DL (1.5-2.5) Blood Gas Puncture Site RT RADIAL RT RADIAL Blood Gas Patient Temperature 98.6 98.6 Blood Gas HCO3 43 mmol/L 43 mmol/L (22-26) (22-26) Blood Gas Base Excess 15.9 mmol/L 16.4 mmol/L (-2-2) (-2-2) Blood Gas Oxygen Saturation 96 % (90-100) 95 % (90-100) Arterial Blood pH 7.30 7.31 (7.380-7.420) (7.380-7.420) Arterial Blood Partial 89 mmHg (38-42) 88 mmHg (38-42) Pressure CO2 Arterial Blood Partial 113 mmHg 99 mmHg Pressure O2 (61-120) (61-120) Arterial Blood Oxygen Content 14.0 Vol % 13.8 Vol % (12.0-20.0) (12.0-20.0) Arterial Blood 2.3 % (0-4) 2.3 % (0-4) Carboxyhemoglobin Arterial Blood Methemoglobin 0.9 % (0-2) 1.0 % (0-2) Blood Gas Hemoglobin 10.3 G/DL 10.3 G/DL (12.0-16.0) (12.0-16.0) Oxygen Delivery Device BIPAP 15IPAP/5 BIPAP Blood Gas Inspired Oxygen 45 % 40 % Nasal Screen MRSA (PCR) MRSA NOT DETECTED (NOT DETECT) Blood Gas Ventilator Setting IPAP+15/EPAP+5 Test 09/22/16 09/22/16 09/23/16 09/23/16 21:30 23:30 05:30 08:33 Blood Gas Puncture Site LT RADIAL Blood Gas Patient Temperature 98.6 Blood Gas HCO3 40 mmol/L (22-26) Blood Gas Base Excess 15.3 mmol/L (-2-2) Blood Gas Oxygen Saturation 92 % (90-100) Arterial Blood pH 7.51 (7.380-7.420) Arterial Blood Partial 50 mmHg (38-42) Pressure CO2 Arterial Blood Partial 64 mmHg Pressure O2 (61-120) Arterial Blood Oxygen Content 13.2 Vol % (12.0-20.0) Arterial Blood 2.7 % (0-4) Carboxyhemoglobin Arterial Blood Methemoglobin 0.9 % (0-2) Blood Gas Hemoglobin 10.1 G/DL (12.0-16.0) Oxygen Delivery Device VENTILATOR Blood Gas Ventilator Setting PRVC/IMV Blood Gas Inspired Oxygen 40 % Urine Color LIGHT-YELLOW (YELLW/STRAW) Urine Turbidity HAZY (CLEAR) Urine pH 8.5 (5.0-8.5) Urine Specific [place] 1.012 (1.002-1.035) Urine Protein TRACE mg/dL (NEG-TRACE) Urine Glucose (UA) NEG mg/dL (NEG) Urine Ketones NEG mg/dL (NEG) Urine Occult Blood NEG (NEG) Urine Nitrite NEG (NEG) Urine Bilirubin NEG (NEG) Urine Urobilinogen LESS THAN 2.0 MG/DL (LESS THAN 2.0) Urine Leukocyte Esterase LARGE (NEG) Urine RBC 15 /hpf (0-3) Urine WBC /hpf (0-5) Urine WBC Clumps MOD (NONE) Urine Renal Epithelial Cells 3 /hpf (NONE) Urine Bacteria RARE /hpf (NONE) Urine Mucus FEW /lpf (OCC) Urine Yeast with Hyphae RARE (NONE) Urine Yeast (Budding) FEW (NONE) Microscopic Urinalysis Comment CATH-CULTURE IND Creatinine 1.39 MG/DL 1.36 MG/DL (0.60-1.30) (0.60-1.30) Estimat Glomerular Filtration 51 ML/MIN (>89) 52 ML/MIN (>89) Rate White Blood Count 8.0 TH/MM3 (4.0-11.0) Red Blood Count 3.28 MIL/MM3 (4.50-5.90) Hemoglobin 10.2 GM/DL (13.0-17.0) Hematocrit 31.1 % (39.0-51.0) Mean Corpuscular Volume 94.8 FL (80.0-100.0) Mean Corpuscular Hemoglobin 31.2 PG (27.0-34.0) Mean Corpuscular Hemoglobin 32.9 % Concent (32.0-36.0) Red Cell Distribution Width 18.1 % (11.6-17.2) Platelet Count 344 TH/MM3 (150-450) Mean Platelet Volume 9.0 FL (7.0-11.0) Sodium Level 140 MEQ/L (136-145) Potassium Level 4.4 MEQ/L (3.5-5.1) Chloride Level 95 MEQ/L (98-107) Carbon Dioxide Level 40.5 MEQ/L (21.0-32.0) Anion Gap 5 MEQ/L (5-15) Blood Urea Nitrogen 67 MG/DL (7-18) Random Glucose 197 MG/DL (74-106) Calcium Level 8.7 MG/DL (8.5-10.1) Phosphorus Level 1.5 MG/DL (2.5-4.9) Magnesium Level 2.6 MG/DL (1.5-2.5) B-Type Natriuretic Peptide 1305 PG/ML (0-100) Result Diagram: 09/23/16 0833 09/23/16 0833 Microbiology Microbiology Date/Time Procedure Status Source Growth 09/20/16 20:45 Urine Culture - Final Complete Urine Clean Catch 09/22/16 23:30 Urine Culture Received Urine Catheterized Urine Pending 09/23/16 08:27 Aerobic Blood Culture Received Blood Peripheral Pending 09/23/16 08:27 Anaerobic Blood Culture Received Blood Peripheral Pending 09/23/16 08:33 Aerobic Blood Culture Received Blood Peripheral Pending 09/23/16 08:33 Anaerobic Blood Culture Received Blood Peripheral Pending . Imaging Last Impressions Chest X-Ray 09/23/16 0000 Signed Impressions: Service Date/Time: Friday, September 23, 2016 07:38 - CONCLUSION: Unchanged pulmonary edema. Nando Welsh Jr., MD Renal Ultrasound 09/19/16 0000 Signed Impressions: Service Date/Time: September 14:31 - CONCLUSION: 1. Renal ultrasound unremarkable except for trace fluid around the right kidney. Jorge Pearce MD Chest Ultrasound 09/16/16 0000 Signed Impressions: Service Date/Time: Friday, September 16, 2016 19:49 - CONCLUSION: Moderate left pleural effusion marked for thoracentesis. Scott Leblanc MD . Patient/Family Conference Present at Family Conference: Met with patient. Also present Cristina Welsh LCSW. . Family Conference Time (mins): 30 Family Conference Location: Bedside Issues Discussed: * Palliative care role, purpose, approach * Additional medical, psychosocial, and spiritual history * Patients general health, functional status, and cognitive changes in the months leading up to the current hospitalization * Patient/family understanding of the current medical problems * Patient/family understanding of prognosis * Patients goals of care as best understood from advance directives and/or conversations and/or values * Current medical treatment options and benefits/burdens of those options * Likely scenarios comparing ongoing aggressive care with a transition to comfort measures only * Questions answered to the best of my ability * Palliative care contact information provided Assessment and Plan Disease Oriented Problem List: (1) Ischemic cardiomyopathy (2) Acute respiratory failure with hypoxia (3) COPD (chronic obstructive pulmonary disease) (4) Acute on chronic renal insufficiency (5) DM (diabetes mellitus) (6) CHF (congestive heart failure) (7) Pulmonary edema (8) Hyponatremia (9) Renal insufficiency Symptom Scale: (1) Shortness of breath 0-10 Scale: 0 Comment: pt denies. (2) Pain 0-10 Scale: 0 Comment: pt denies. Pertinent Non-Medical Issues Psychosocial: Supported by siblings. Spiritual: No sabianist affiliation. Legal: Designated healthcare surrogate, sister Nadege Damico. Ethical issues impacting care: No known concerns at this time. . Important Contacts * Nadege Damico, [facility], sister/ [facility]: [phone] or [phone] . Prognosis Mr. Damico is a 70 year old male admitted for 5th acute care hospitalization int he past 2 months, he has underlying COPD, CHF, CAD, cardiomyopathy with EF 25%. While patient may survive this hospitalization, he is very high risk for further setbacks or decline. Would be hospice appropriate if goals were comfort oriented. . Code Status: Full Code Plan * Decision Maker: Designated healthcare surrogate, Nadege Damico (sister). Patient appears to have very simple understanding of his health conditions and prognosis, at a minimum I would recommend shared decision-making. * FULL CODE * Palliative care met with patient: patient seems to have some insight to recent hospitalizations, health, however would recommend shared decision-making as his understanding is very simple. At this time he desires continued aggressive care. * SYMPTOMS: Pain: denies pain. Will continue to monitor. Dyspnea: extubated . Tolerating oxygen via nasal cannula. * Palliative care number provided. * Palliative care will continue to follow throughout hospital course to assist with symptom management and clarification of goals as needed. . Thank you for the opportunity to participate in the care of Mr. Damico. Attestation To help prompt me to consider important information that might be impacting today's encounter and assessment, information from prior notes written by myself or my colleagues may have been "brought forward" into today's note. My signature on this note, however, is an attestation that I personally performed the exam, history, and/or decision-making noted today, and, unless otherwise indicated, the interactions with patient, family, and staff as well as the review of records all occurred today. I also attest that the listed assessment and stated plan reflect my best clinical judgment today based on the combination of historical information, prior notes, and today's exam/ interactions. When time spent is documented, it refers only to time spent today by the signer, or if indicated, combined time spent today by collaborating physician/nurse practitioner. . MARY MILLER September 23, 2016 10:40
[2016-09-23 10:54] LABS: BLOOD GAS BASE EXCESS 14.1 mmol/L (-2-2); BLOOD GAS CARBOXYHEMOGLOBIN 2.2 % (0-4); BLOOD GAS HCO3 39 mmol/L (22-26); BLOOD GAS O2 HGB SATURATION 97 % (90-100); BLOOD GAS OXYGEN CONTENT 15.9 Vol % (12.0-20.0); BLOOD GAS PCO2 53 mmHg (38-42); BLOOD GAS PO2 143 mmHg (61-120); BLOOD GAS TOTAL HGB 11.5 G/DL (12.0-16.0); TEMP CORR TO 98.6
[2016-09-23 10:55] LABS: CRITICAL VALUE YES; DRAW SITE RT RADIAL; NUMBER OF ARTERIAL PUNCTURES 2; STAT NO; ULNAR PULSE Y
--- NOTE | 2016-09-23 12:17 | HHI.PR ---
Subjective Remarks Went into respiratory failure ,and was intubated . Now extubated and alert. O2 sat 96 on 40 % Mask Objective Vital Signs Date Time Temp Pulse Resp B/P Pulse Ox O2 Delivery O2 Flow Rate FiO2 09/23/16 11:31 96 Venturi Mask 50 09/23/16 10:00 82 09/23/16 08:05 97 50 09/23/16 08:00 98.0 90 28 101/48 99 09/23/16 08:00 78 09/23/16 08:00 50 09/23/16 07:50 97 50 09/23/16 06:00 81 09/23/16 04:15 95 50 09/23/16 04:00 99.7 81 16 93/47 94 09/23/16 04:00 81 09/23/16 04:00 50 09/23/16 02:14 95 40 09/23/16 02:00 78 09/23/16 00:00 97.7 75 16 101/49 94 09/23/16 00:00 55 09/23/16 00:00 75 09/22/16 23:37 90 55 09/22/16 22:44 92 40 09/22/16 22:00 76 09/22/16 20:00 97.0 76 16 99/50 99 09/22/16 20:00 40 09/22/16 20:00 76 09/22/16 19:37 99 40 09/22/16 19:00 99 Mechanical Ventilator 40 09/22/16 18:00 83 09/22/16 16:55 100 40 09/22/16 16:00 87 18 106/55 98 09/22/16 16:00 83 09/22/16 14:37 99 40 09/22/16 14:00 83 09/22/16 13:30 82 I/O 09/22/16 09/22/16 09/22/16 09/23/16 09/23/16 09/23/16 07:00 15:00 23:00 07:00 15:00 23:00 Output Total 600 ml Balance -600 ml Output Urine Total 600 ml # Bowel Movements 0 Result Diagram: 09/23/1683209/23/1633 Objective Remarks This elderly averagely built white male lethargic HEENT: Head normocephalic. Pupils are reactive. Throat was clear. Nasal mucosa clear NECK: Supple. No bruits. No venous distension. Trachea midline. CHEST: Equal movements with an increased AP diameter, and Bibasilar crackles. HEART: The heart sounds are regular S1-S2 . ABDOMEN: Soft and protuberant without masses. No organomegaly or tenderness. Bowel sounds are active. EXTREMITIES: Edema 1+ . There is no clubbing, decreased peripheral pulses. R NEUROLOGIC: Lethargic . RECTAL: Exam is deferred. SKIN: Cool and dry. Assessment and Plan Assessment and Plan IMPRESSION 1. Congestive heart failure with acute exacerbation 2. Cardiomyopathy 3. History of diabetes mellitus 4. Chronic obstructive pulmonary disease with emphysema 5. Respiratory failure, chronic 6. History of prostatic hypertrophy 7. Respiratory Failure Plan : 1. O2 at 40 % Ventimask 2. Continue nebs qid , duoneb. 3. Chest X ray in am 4. Resume anticoagulants. 5. Continue Diuretic daily. 6. Cont antibioitcs 7. CBC,BMP in am Elder Wiggins MD September 23, 2016 12:17
[2016-09-23] MEDS: VANCOMYCIN INJ 2,000 MG in SODIUM CHLORID 0.9% 500 ML INJ 500 ML IV SCH (17:15)
[2016-09-23] MEDS: PANTOPRAZOLE SODIUM 40 MG VIAL IV PUSH SCH (22:08)
[2016-09-23] MEDS: PRAVASTATIN SOD 40 MG TAB PO SCH (22:09)
[2016-09-23] MEDS: LATANOPROST 0.005% OPHT SOLN 2.5 ML BTL RIGHT EYE SCH (22:10)
[2016-09-23] MEDS: LORazepam 0.5 MG TAB PO PRN (23:45)
[2016-09-24] VITALS (15 sets, daily range): BP systolic 97–115; BP diastolic 46–75; PULSE 72–92; RESP 14–31; TEMP 97.2–98.3; O2SAT 93–98
[2016-09-24] MEDS ORDERED: HALOPERIDOL 5 MG TAB PO PRN (01:15)
[2016-09-24] MEDS: CHLORHEXIDINE GLUCONATE 2 % 1 PACK (2 CLOTHS)(taper/protocol) TOPICAL SCH (04:00)
[2016-09-24] MEDS: LOW DOSE INSULIN NOVOLOG SUPPLEMENTAL SCALE SQ SCH ×4 (05:33→20:35)
[2016-09-24] MEDS: CEFEPIME INJ 2,000 MG in SODIUM CHLORIDE 0.9% INJ 100 ML IV SCH ×3 (05:34→22:26)
[2016-09-24] MEDS: LEVOTHYROXINE SODIUM 50 MCG TAB PO SCH (05:34)
[2016-09-24 05:39] LABS: HEMATOCRIT 30.3 % (39.0-51.0); MEAN CORPUSCULAR HEMOGLOBIN 31.4 PG (27.0-34.0); PLATELET COUNT 308 TH/MM3 (150-450); RED BLOOD COUNT 3.19 MIL/MM3 (4.50-5.90); RED CELL DISTRIBUTION WIDTH 18.2 % (11.6-17.2); REVIEW FLAG FINAL; WHITE BLOOD COUNT 5.6 TH/MM3 (4.0-11.0)
[2016-09-24 06:08] LABS: BICARBONATE 40.5 MEQ/L (21.0-32.0); MAGNESIUM 2.4 MG/DL (1.5-2.5); POTASSIUM 4.2 MEQ/L (3.5-5.1)
--- NOTE | 2016-09-24 06:14 | RADRPT ---
EXAM DATE/TIME: 09/24/2016 04:53 [facility] COMPARISON: CHEST SINGLE AP, September 23, 2016, 7:38. INDICATIONS : Respiratory distress. Interval extubation.. MEDICAL HISTORY : Myocardial infarction. Chronic obstructive pulmonary disease. SURGICAL HISTORY : CABG. Pacemaker. ENCOUNTER: Subsequent ACUITY: 1 week PAIN SCORE: Non-responsive. LOCATION: Bilateral chest FINDINGS: A single AP portable semierect view of the chest was obtained and again demonstrates the patient is s tatus post median sternotomy for bypass grafting procedure. The patient is rotated to the left. The h eart size remains moderately enlarged. Hazy opacity is noted in both lungs which appears increased. T here is blunting of the left costophrenic angle and obscuration of left hemidiaphragm. The left subcl vashti transvenous pacer remains in place. The patient has been extubated and nasogastric tube has bee n removed. CONCLUSION: 1. Status post extubation and removal of the nasogastric tube. 2. The patient is rotated to the left and there are has been apparent interval increase in the bilate ral pulmonary opacity. There is an apparent left effusion. Clovis Soliz MD on September 24, 2016 at 6:11 Board Certified Radiologist. This report was verified electronically.
[2016-09-24] MEDS: ASCORBIC ACID 500 MG TAB PO SCH ×2 (09:26→20:30)
[2016-09-24] MEDS: TAMSULOSIN HCL 0.4 MG CAP PO SCH (09:26)
[2016-09-24] MEDS: ISOSORBIDE MONONITRATE 30 MG TAB PO SCH (09:26)
[2016-09-24] MEDS: LACTULOSE SYRUP 20 GM/30 ML CUP PO SCH (09:26)
[2016-09-24] MEDS: FERROUS SULFATE 325 MG (65 MG ELEMENTAL IRON) TAB PO SCH (09:26)
[2016-09-24] MEDS: FUROSEMIDE 40 MG/4 ML VIAL IV PUSH SCH (09:27)
[2016-09-24] MEDS: methylPREDNISolone SOD SUCC 125 MG/2 ML VIAL IV PUSH SCH (09:27)
[2016-09-24] MEDS: CARVEDILOL 12.5 MG TAB PO SCH ×2 (09:28→20:30)
[2016-09-24] MEDS: INSULIN DETEMIR 100 UNITS/ML VIAL SQ SCH ×2 (09:45→20:35)
[2016-09-24] MEDS: DOCUSATE SODIUM 100 MG CAP PO SCH ×2 (09:46→20:30)
--- NOTE | 2016-09-24 09:52 | HHI.FPPN ---
Subjective Remarks hypoxic called w respir distress d/w RN Objective Vitals Vital Signs Date Time Temp Pulse Resp B/P Pulse Ox O2 Delivery O2 Flow Rate FiO2 09/24/16 08:56 98 Nasal Cannula 2.00 09/24/16 06:00 80 09/24/16 04:00 97.2 72 28 97/47 95 09/24/16 04:00 72 09/24/16 02:00 79 09/24/16 00:00 78 09/24/16 00:00 98.3 78 17 103/49 93 09/23/16 22:00 90 09/23/16 20:00 93 09/23/16 20:00 98.2 93 28 122/62 97 09/23/16 19:00 97 Nasal Cannula 2.00 09/23/16 18:00 89 09/23/16 16:00 87 09/23/16 16:00 98.1 90 30 120/58 96 09/23/16 14:00 86 09/23/16 12:00 98.4 82 22 102/50 95 09/23/16 12:00 80 09/23/16 11:31 96 Venturi Mask 50 09/23/16 10:00 82 I/O 09/23/16 09/23/16 09/23/16 09/24/16 09/24/16 09/24/16 07:00 15:00 23:00 07:00 15:00 23:00 Intake Total 800 ml 624 ml Output Total 1751 ml 725 ml Balance -951 ml -101 ml Intake Oral 800 ml 480 ml IV Total 144 ml Output Urine Total 1750 ml 725 ml Stool Total 1 ml # Bowel Movements 0 Result Diagram: 09/24/16 0437 09/24/16 0437 Objective Remarks GENERAL: calm, flat SKIN: Warm and dry. HEAD: Atraumatic. Normocephalic. EYES: Pupils equal and round. No scleral icterus. No injection or drainage. ENT: No nasal bleeding or discharge. Mucous membranes pink and moist. NECK: Trachea midline. No JVD. CARDIOVASCULAR: Regular rate and rhythm. RESPIRATORY: No accessory muscle use. Bilateral congestion and ronchi, R base crackles GASTROINTESTINAL: Abdomen soft, non-tender, nondistended. Hepatic and splenic margins not palpable. MUSCULOSKELETAL: Extremities without clubbing, cyanosis, or edema. No obvious deformities. NEUROLOGICAL: Awake and alert. No obvious cranial nerve deficits. Motor grossly within normal limits. 1 out of 5 muscle strength in the arms and legs. PSYCHIATRIC: Appropriate mood and affect; Medications and IVs Current Medications Medications (Trade) Dose Ordered Sig/Jacek Route Start Time Stop Time Status Last Admin (NS Flush) 2 ml UNSCH PRN IVF 09/15/16 09:00 09/23/16 08:56 (Vitamin C) 500 mg BID PO 09/15/16 21:00 09/24/16 09:26 (Colace) 100 mg BID PO 09/15/16 21:00 09/23/16 08:55 (Ferrous Sulfate) 325 mg DAILY PO 09/16/16 09:00 09/24/16 09:26 (Imdur) 30 mg DAILY PO 09/15/16 10:30 09/24/16 09:26 (Lactulose Liq) 30 ml DAILY PO 09/16/16 09:00 09/24/16 09:26 (Synthroid) 50 mcg DAILY@0600 PO 09/16/16 06:00 09/24/16 05:34 (Refresh Classic 1.4-0.6% Pf Opth Soln) 1 drop TID PRN EACH EYE 09/15/16 10:15 (Flomax) 0.4 mg DAILY PO 09/16/16 09:00 09/24/16 09:26 Patient Own Medication PT OWN MED: Azopt (Brinzolami... BID RIGHT EYE 09/15/16 21:00 Hold (Mag-Ox) 500 mg DAILY@11 PO 09/15/16 11:00 09/21/16 11:20 (Pravachol) 40 mg HS PO 09/15/16 21:00 09/23/16 22:09 (Xalatan 0.005% Opth Soln) 1 drop HS RIGHT EYE 09/15/16 21:00 09/23/16 22:10 (Pill Splitter) 1 ea UNSCH PRN OTHER 09/15/16 10:45 (Alphagan 0.2% Opth Soln) 1 drop Q12HR RIGHT EYE 09/15/16 21:00 09/23/16 22:09 (Timoptic 0.5% Opth Soln) 1 drop Q12HR RIGHT EYE 09/15/16 21:00 09/23/16 22:09 (D50w (Vial) Inj) 25 ml UNSCH PRN IV PUSH 09/15/16 11:30 (Glucagon Inj) 1 mg UNSCH PRN OTHER 09/15/16 11:30 (Coreg) 12.5 mg BID PO 09/15/16 21:00 09/24/16 09:28 (Tylenol) 650 mg Q4H PRN PO 09/16/16 14:30 09/19/16 08:57 (Ativan) 0.5 mg Q6H PRN PO 09/16/16 14:30 09/23/16 23:45 (Lasix Inj) 40 mg DAILY IV PUSH 09/21/16 18:00 09/24/16 09:27 Methylprednisolone Sodium Succinate 60 mg 60 mg Q12H IV PUSH 09/22/16 20:00 09/24/16 09:27 Pharmacy Profile Note 0 ml @ 0 mls/hr UNSCH OTHER 09/22/16 15:00 Cefepime HCl 2000 mg/Sodium Chloride 100 ml @ 200 mls/hr Q8H IV 09/22/16 15:00 09/24/16 05:34 (Vancomycin Inj/ NS 500 ml Inj) 520 ml @ 250 mls/hr Q24H IV 09/22/16 16:00 09/23/16 17:15 Miscellaneous Information SPECIFIC LAB TO BE DRAWN:VANCOMYIN TROUGH DATE TO... ONCE ONCE .XX 09/26/16 15:45 09/26/16 15:46 (Levemir Inj) 7 units Q12HR SQ 09/22/16 21:00 09/23/16 21:00 (Protonix Inj) 40 mg Q24H IV PUSH 09/22/16 21:00 09/23/16 22:08 (Zofran Inj) 4 mg Q6HR PRN IV PUSH 09/22/16 16:00 (Peridex 0.12% Liq) 15 ml BID@08,20 MT 09/22/16 20:00 09/23/16 08:00 Miscellaneous Information Patient in critical care unit? Ass... [id number] .XX 09/22/16 19:15 (Chlorhexidine 2% Cloth) 3 pack DAILY@04 TOPICAL 09/23/16 04:00 09/27/16 04:01 09/24/16 04:00 Chlorhexidine Gluconate 3 pack 3 pack UNSCH PRN TOPICAL 09/22/16 19:15 09/27/16 19:03 Potassium Chloride 100 ml @ 50 mls/hr Q2H PRN IV 09/23/16 10:00 (KCl 20 Meq Premix Inj) 100 ml @ 50 mls/hr Q2H PRN IV 09/23/16 10:00 Potassium Bicarb/ Potassium Chloride 50 meq 50 meq UNSCH PRN PO 09/23/16 10:00 Potassium Chloride 100 ml @ 25 mls/hr UNSCH PRN IV 09/23/16 10:00 Potassium Chloride 100 ml @ 50 mls/hr Q2H PRN IV 09/23/16 10:00 (Magnesium Sulfate Inj/NS Inj) 100 ml @ 50 mls/hr UNSCH PRN IV 09/23/16 10:00 Magnesium Oxide 800 mg 800 mg UNSCH PRN PO 09/23/16 10:00 (Magnesium Sulfate Inj/NS Inj) 100 ml @ 50 mls/hr UNSCH PRN IV 09/23/16 10:00 Potassium Phosphate 2000 mg 2,000 mg Q4H PRN PO 09/23/16 10:00 09/23/16 10:18 (Sodium Phosphate Inj/NS 250 ml Inj) 250 ml @ 42 mls/hr UNSCH PRN IV 09/23/16 10:00 (K-Phos) 2,000 mg UNSCH PRN PO/TUBE 09/23/16 10:00 (Haldol) 5 mg Q4H PRN PO 09/24/16 01:15 A/P Assessment and Plan -VDRF: resolved. -HYPERCARBIA -UTI -SEPSIS -Acute on chronic systolic heart failure with history of cardiomyopathy with known ejection fraction of 25% status post AICD, -Pleural effusion- consult pulm, diurese, thoracentesis 09/19, -Cardiorenal syndrome -Anoxic encephalopathy- Lasix 40 mg every 12 monitor output, Coreg 12.5 mg twice a day, Eliquis -Diabetes type 2 continue on insulin regimen -SIXTO: Gentle IVF's. Hold diuretics, am labs. Renal Us negative. Nephrology consult appreciated. -chronic kidney disease. -Hyponatremia- Monitor lytes -Hyperkalemia: s/p kayexelate x one, recheck K -History of GI bleed in the past continue on PPI -BPH- continue Flomax Hospice consult Srinivas Naylor MD September 24, 2016 09:52
[2016-09-24] MEDS: MAGNESIUM OXIDE 400 MG TAB PO SCH (10:01)
[2016-09-24] MEDS: CHLORHEXIDINE 0.12% (ORAL KIT) 15 ML CUP MT SCH ×2 (10:26→20:00)
[2016-09-24] MEDS: TIMOLOL MALEATE 0.5% OPHT SOLN 5 ML BTL RIGHT EYE SCH ×2 (12:02→20:31)
[2016-09-24] MEDS: BRIMONIDINE TARTRATE 0.2% OPHT SOLN 5 ML BTL RIGHT EYE SCH ×2 (12:02→20:31)
[2016-09-24] MEDS: VANCOMYCIN INJ 2,000 MG in SODIUM CHLORID 0.9% 500 ML INJ 500 ML IV SCH (16:32)
--- NOTE | 2016-09-24 16:59 | HHI.HCPN ---
Reason for visit a. To assist with evaluation and management of symptoms including: dyspnea, pain. b. To assist medical decision maker(s) with: better understanding of current medical conditions; weighing benefits/burdens of medical treatment options; making medical treatment decisions. . Subjective/Interval History Patient seen and examined in ICU. Nadege Foote at bedside. Patient is awake and alert. He is asking to go home. He reports he has spent a long time in and out of the hospital and wants to be home with his family. Sister hopes to be able to bring him home. Afebrile. Hypotensive BP 97/46. On oxygen via NC. Labs relatively stable. Creatinine 1.17. Cytology from thoracentesis on 09/19 negative malignant cells. Chest xray interval increase in the bilateral pulmonary opacity, left effusion. . Family/friend interactions Long conversation with patient and his sisterNadege ([facility]) regarding CHF, COPD and ongoing decline over the past few months. We reviewed overall poor prognosis and limited life expectancy. He indicates he does not want cardiac res[facility] or [facility], elects NO CODE. He was God to take him when it is his time, his sister agrees. He hoeps to return home with family and sister seems willing to consider getting him home with hospice support. They would benefit from care center placement for adjustment of meds to control symptoms prior to DC home Family will need some education and DME to help ensure success at home. Sister understands patient may lives days to weeks. She hopes to be able to honor his wishes. She is a little worried about other family members thinking they are giving up, but supports honoring his wishes. She is appropriately tearful. They both have a great deal of archana and are comforted by this archana. Will ask hospice to meet with them. . Advance Directives Living Will: Never completed Health Care Surrogate: Copy in medical record Durable Power of Hand I Blocker: Never completed Advance Directive Specifics Date completed: 09/04/16 . Health Care Surrogate(s): Nadege Damico, , or [phone] . Significant change in goals: NO CODE, elected by patient and supported by [facility]/ Nadege Foote. . Objective Vital Signs Date Time Temp Pulse Resp B/P Pulse Ox O2 Delivery O2 Flow Rate FiO2 09/24/16 16:00 97.8 88 18 97/46 96 09/24/16 16:00 91 09/24/16 14:00 72 09/24/16 12:00 72 09/24/16 12:00 97.7 76 14 97/50 94 09/24/16 11:55 93 Nasal Cannula 2.00 09/24/16 10:00 88 09/24/16 08:56 98 Nasal Cannula 4.00 09/24/16 08:00 98.3 92 27 115/75 98 09/24/16 08:00 92 09/24/16 06:00 80 09/24/16 04:00 97.2 72 28 97/47 95 09/24/16 04:00 72 09/24/16 02:00 79 09/24/16 00:00 78 09/24/16 00:00 98.3 78 17 103/49 93 09/23/16 22:00 90 09/23/16 20:00 93 09/23/16 20:00 98.2 93 28 122/62 97 09/23/16 19:00 97 Nasal Cannula 2.00 09/23/16 18:00 89 Intake & Output 09/24/16 09/24/16 07:00 19:00 Intake Total 624 ml Output Total 725 ml Balance -101 ml Intake Oral 480 ml IV Total 144 ml Output Urine Total 725 ml # Bowel Movements 0 Physical Exam CONSTITUTIONAL/GENERAL: This is an thin, frail appearing man, in no apparent distress. TUBES/LINES/DRAINS: Oxygen via NC, PIV, Damon, SCDs. SKIN: No jaundice, rashes, or lesions. Ecchymoses on upper extremities. No wounds seen anteriorly. Skin temperature appropriate. Not diaphoretic. CARDIOVASCULAR: Regular rate and rhythm without murmurs, gallops, or rubs. RESPIRATORY/CHEST: Symmetric, mildly labored respirations using accessory muscles, denies SOB. Rales bilateral bases. GASTROINTESTINAL: Abdomen soft, non-tender, nondistended. No guarding. Bowel sounds present. GENITOURINARY: Without palpable bladder distension. Damon catheter in place. MUSCULOSKELETAL: Extremities without clubbing, cyanosis, or edema. No mottling or clubbing. NEUROLOGICAL: Awake and alert. Follows commands. Cognitively sharp. Moves all extremities. PSYCHIATRIC: No obvious anxiety/depression. no apparent hallucinations or other psychotic thought process. . Diagnostic Tests Laboratory Laboratory Tests Test 09/22/16 09/22/16 09/22/16 09/22/16 06:45 11:44 12:30 13:48 White Blood Count 9.1 TH/MM3 (4.0-11.0) Red Blood Count 3.47 MIL/MM3 (4.50-5.90) Hemoglobin 10.5 GM/DL (13.0-17.0) Hematocrit 34.2 % (39.0-51.0) Mean Corpuscular Volume 98.4 FL (80.0-100.0) Mean Corpuscular Hemoglobin 30.3 PG (27.0-34.0) Mean Corpuscular Hemoglobin 30.8 % Concent (32.0-36.0) Red Cell Distribution Width 18.5 % (11.6-17.2) Platelet Count 344 TH/MM3 (150-450) Mean Platelet Volume 8.8 FL (7.0-11.0) Neutrophils (%) (Auto) 75.7 % (16.0-70.0) Lymphocytes (%) (Auto) 9.3 % (9.0-44.0) Monocytes (%) (Auto) 13.5 % (0.0-8.0) Eosinophils (%) (Auto) 1.4 % (0.0-4.0) Basophils (%) (Auto) 0.1 % (0.0-2.0) Neutrophils # (Auto) 6.9 TH/MM3 (1.8-7.7) Lymphocytes # (Auto) 0.8 TH/MM3 (1.0-4.8) Monocytes # (Auto) 1.2 TH/MM3 (0-0.9) Eosinophils # (Auto) 0.1 TH/MM3 (0-0.4) Basophils # (Auto) 0.0 TH/MM3 (0-0.2) CBC Comment DIFF FINAL Differential Comment Sodium Level 137 MEQ/L 139 MEQ/L (136-145) (136-145) Potassium Level 4.9 MEQ/L 4.9 MEQ/L (3.5-5.1) (3.5-5.1) Chloride Level 89 MEQ/L 91 MEQ/L (98-107) (98-107) Carbon Dioxide Level GREATER THAN GREATER THAN 45.0 MEQ/L 45.0 MEQ/L (21.0-32.0) (21.0-32.0) Anion Gap 3 MEQ/L (5-15) 3 MEQ/L (5-15) Blood Urea Nitrogen 86 MG/DL (7-18) 81 MG/DL (7-18) Creatinine 1.64 MG/DL 1.47 MG/DL (0.60-1.30) (0.60-1.30) Estimat Glomerular Filtration 42 ML/MIN (>89) 47 ML/MIN (>89) Rate Random Glucose 200 MG/DL 221 MG/DL (74-106) (74-106) Calcium Level 8.8 MG/DL 8.9 MG/DL (8.5-10.1) (8.5-10.1) Blood Gas Puncture Site LT BRACHIAL RT RADIAL Blood Gas Patient Temperature 98.6 98.6 Blood Gas HCO3 43 mmol/L 43 mmol/L (22-26) (22-26) Blood Gas Base Excess 15.7 mmol/L 15.9 mmol/L (-2-2) (-2-2) Blood Gas Oxygen Saturation 97 % (90-100) 96 % (90-100) Arterial Blood pH 7.27 7.30 (7.380-7.420) (7.380-7.420) Arterial Blood Partial 97 mmHg (38-42) 89 mmHg (38-42) Pressure CO2 Arterial Blood Partial 149 mmHg 113 mmHg Pressure O2 (61-120) (61-120) Arterial Blood Oxygen Content 14.6 Vol % 14.0 Vol % (12.0-20.0) (12.0-20.0) Arterial Blood 1.9 % (0-4) 2.3 % (0-4) Carboxyhemoglobin Arterial Blood Methemoglobin 0.7 % (0-2) 0.9 % (0-2) Blood Gas Hemoglobin 10.5 G/DL 10.3 G/DL (12.0-16.0) (12.0-16.0) Oxygen Delivery Device BiPAP BIPAP 15IPAP/5 Blood Gas Ventilator Setting IPAP15/EPAP5 Blood Gas Inspired Oxygen 55 % 45 % Lactic Acid Level 0.9 mmol/L (0.4-2.0) Magnesium Level 2.7 MG/DL (1.5-2.5) Test 09/22/16 09/22/16 09/22/1609/22/17 14:10 16:02 21:30 23:30 Nasal Screen MRSA (PCR) MRSA NOT DETECTED (NOT DETECT) Blood Gas Puncture Site RT RADIAL LT RADIAL Blood Gas Patient Temperature 98.6 98.6 Blood Gas HCO3 43 mmol/L 40 mmol/L (22-26) (22-26) Blood Gas Base Excess 16.4 mmol/L 15.3 mmol/L (-2-2) (-2-2) Blood Gas Oxygen Saturation 95 % (90-100) 92 % (90-100) Arterial Blood pH 7.31 7.51 (7.380-7.420) (7.380-7.420) Arterial Blood Partial 88 mmHg (38-42) 50 mmHg (38-42) Pressure CO2 Arterial Blood Partial 99 mmHg 64 mmHg Pressure O2 (61-120) (61-120) Arterial Blood Oxygen Content 13.8 Vol % 13.2 Vol % (12.0-20.0) (12.0-20.0) Arterial Blood 2.3 % (0-4) 2.7 % (0-4) Carboxyhemoglobin Arterial Blood Methemoglobin 1.0 % (0-2) 0.9 % (0-2) Blood Gas Hemoglobin 10.3 G/DL 10.1 G/DL (12.0-16.0) (12.0-16.0) Oxygen Delivery Device BIPAP VENTILATOR Blood Gas Ventilator Setting IPAP+15/EPAP+5 PRVC/IMV Blood Gas Inspired Oxygen 40 % 40 % Urine Color LIGHT-YELLOW (YELLW/STRAW) Urine Turbidity HAZY (CLEAR) Urine pH 8.5 (5.0-8.5) Urine Specific Drake 1.012 (1.002-1.035) Urine Protein TRACE mg/dL (NEG-TRACE) Urine Glucose (UA) NEG mg/dL (NEG) Urine Ketones NEG mg/dL (NEG) Urine Occult Blood NEG (NEG) Urine Nitrite NEG (NEG) Urine Bilirubin NEG (NEG) Urine Urobilinogen LESS THAN 2.0 MG/DL (LESS THAN 2.0) Urine Leukocyte Esterase LARGE (NEG) Urine RBC 15 /hpf (0-3) Urine WBC /hpf (0-5) Urine WBC Clumps MOD (NONE) Urine Renal Epithelial Cells 3 /hpf (NONE) Urine Bacteria RARE /hpf (NONE) Urine Mucus FEW /lpf (OCC) Urine Yeast with Hyphae RARE (NONE) Urine Yeast (Budding) FEW (NONE) Microscopic Urinalysis Comment CATH-CULTURE IND Test 09/23/16 09/23/16 09/23/16 09/23/16 05:30 08:33 10:50 11:53 Creatinine 1.39 MG/DL 1.36 MG/DL (0.60-1.30) (0.60-1.30) Estimat Glomerular Filtration 51 ML/MIN (>89) 52 ML/MIN (>89) Rate White Blood Count 8.0 TH/MM3 (4.0-11.0) Red Blood Count 3.28 MIL/MM3 (4.50-5.90) Hemoglobin 10.2 GM/DL (13.0-17.0) Hematocrit 31.1 % (39.0-51.0) Mean Corpuscular Volume 94.8 FL (80.0-100.0) Mean Corpuscular Hemoglobin 31.2 PG (27.0-34.0) Mean Corpuscular Hemoglobin 32.9 % Concent (32.0-36.0) Red Cell Distribution Width 18.1 % (11.6-17.2) Platelet Count 344 TH/MM3 (150-450) Mean Platelet Volume 9.0 FL (7.0-11.0) Sodium Level 140 MEQ/L (136-145) Potassium Level 4.4 MEQ/L (3.5-5.1) Chloride Level 95 MEQ/L (98-107) Carbon Dioxide Level 40.5 MEQ/L (21.0-32.0) Anion Gap 5 MEQ/L (5-15) Blood Urea Nitrogen 67 MG/DL (7-18) Random Glucose 197 MG/DL (74-106) Calcium Level 8.7 MG/DL (8.5-10.1) Phosphorus Level 1.5 MG/DL 2.1 MG/DL (2.5-4.9) (2.5-4.9) Magnesium Level 2.6 MG/DL (1.5-2.5) B-Type Natriuretic Peptide 1305 PG/ML (0-100) Blood Gas Puncture Site RT RADIAL Blood Gas Patient Temperature 98.6 Blood Gas HCO3 39 mmol/L (22-26) Blood Gas Base Excess 14.1 mmol/L (-2-2) Blood Gas Oxygen Saturation 97 % (90-100) Arterial Blood pH 7.48 (7.380-7.420) Arterial Blood Partial 53 mmHg (38-42) Pressure CO2 Arterial Blood Partial 143 mmHg Pressure O2 (61-120) Arterial Blood Oxygen Content 15.9 Vol % (12.0-20.0) Arterial Blood 2.2 % (0-4) Carboxyhemoglobin Arterial Blood Methemoglobin 1.0 % (0-2) Blood Gas Hemoglobin 11.5 G/DL (12.0-16.0) Test 09/24/16 04:37 White Blood Count 5.6 TH/MM3 (4.0-11.0) Red Blood Count 3.19 MIL/MM3 (4.50-5.90) Hemoglobin 10.0 GM/DL (13.0-17.0) Hematocrit 30.3 % (39.0-51.0) Mean Corpuscular Volume 95.0 FL (80.0-100.0) Mean Corpuscular Hemoglobin 31.4 PG (27.0-34.0) Mean Corpuscular Hemoglobin 33.0 % Concent (32.0-36.0) Red Cell Distribution Width 18.2 % (11.6-17.2) Platelet Count 308 TH/MM3 (150-450) Mean Platelet Volume 9.1 FL (7.0-11.0) Sodium Level 139 MEQ/L (136-145) Potassium Level 4.2 MEQ/L (3.5-5.1) Chloride Level 93 MEQ/L (98-107) Carbon Dioxide Level 40.5 MEQ/L (21.0-32.0) Anion Gap 6 MEQ/L (5-15) Blood Urea Nitrogen 56 MG/DL (7-18) Creatinine 1.17 MG/DL (0.60-1.30) Estimat Glomerular Filtration 62 ML/MIN (>89) Rate Random Glucose 234 MG/DL (74-106) Calcium Level 8.7 MG/DL (8.5-10.1) Phosphorus Level 3.3 MG/DL (2.5-4.9) Magnesium Level 2.4 MG/DL (1.5-2.5) Result Diagram: 09/24/16 0437 09/24/16 0437 Microbiology Microbiology Date/Time Procedure Status Source Growth 09/22/16 23:30 Urine Culture - Preliminary Resulted Urine Catheterized Urine Staph Sp Coagulase Negative 09/23/16 08:27 Aerobic Blood Culture - Preliminary Resulted Blood Peripheral NO GROWTH IN 1 DAY 09/23/16 08:27 Anaerobic Blood Culture - Preliminary Resulted Blood Peripheral NO GROWTH IN 1 DAY 09/23/16 08:33 Aerobic Blood Culture - Preliminary Resulted Blood Peripheral NO GROWTH IN 1 DAY 09/23/16 08:33 Anaerobic Blood Culture - Preliminary Resulted Blood Peripheral NO GROWTH IN 1 DAY 09/23/16 09:00 Gram Stain - Final Resulted Sputum Endotracheal 09/23/16 09:00 Sputum Culture - Preliminary Resulted Sputum Endotracheal NO GROWTH IN 24 HOURS. Imaging Last Impressions Chest X-Ray 09/24/16 0600 Signed Impressions: Service Date/Time: Saturday, September 24, 2016 04:53 - CONCLUSION: 1. Status post extubation and removal of the nasogastric tube. 2. The patient is rotated to the left and there are has been apparent interval increase in the bilateral pulmonary opacity. There is an apparent left effusion. Clovis Sloiz MD Renal Ultrasound 09/19/16 0000 Signed Impressions: Service Date/Time: September 14:31 - CONCLUSION: 1. Renal ultrasound unremarkable except for trace fluid around the right kidney. Jorge Pearce MD Chest Ultrasound 09/16/16 0000 Signed Impressions: Service Date/Time: Friday, September 16, 2016 19:49 - CONCLUSION: Moderate left pleural effusion marked for thoracentesis. Scott Leblanc MD Procedures 09/19/16 - Cytology - negative malignant cells. Assessment and Plan Disease Oriented Problem List: (1) Ischemic cardiomyopathy (2) Acute respiratory failure with hypoxia (3) COPD (chronic obstructive pulmonary disease) (4) Acute on chronic renal insufficiency (5) DM (diabetes mellitus) (6) CHF (congestive heart failure) (7) Pulmonary edema (8) Hyponatremia (9) Renal insufficiency Symptom Scale: (1) Shortness of breath 0-10 Scale: 0 Comment: pt denies. (2) Pain 0-10 Scale: 0 Comment: pt denies. Pertinent Non-Medical Issues Psychosocial: Supported by siblings. Spiritual: No amish affiliation. Legal: Designated healthcare surrogate, sister Nadege Damico. Ethical issues impacting care: No known concerns at this time. . Important Contacts * Nadege Damico, [facility], sister/ HCS: [phone] or [phone] . Prognosis Mr. Damico is a 70 year old male admitted for 5th acute care hospitalization int he past 2 months, he has underlying COPD, CHF, CAD, cardiomyopathy with EF 25%. While patient may survive this hospitalization, he is very high risk for further setbacks or decline. Would be hospice appropriate if goals were comfort oriented. . Code Status: No Code Plan * Decision Maker: Designated healthcare surrogate, Nadege Dmaico (sister). Patient appears more clear today, he still wants the support of his sister in making decisions. * NO CODE * Palliative care met with patient and his sister, he wants to go home. He elects NO CODE, sister supports his decision. He desires comfort focused care with hospice support. He and sister are considering hospice care center placement in hopes to get things in place for DC home in the coming days. Patient wants to meet with hospice tonight. * SYMPTOMS: Pain: denies pain. Will continue to monitor. Dyspnea: extubated . Tolerating oxygen via nasal cannula. * Palliative care will continue to follow throughout hospital course to assist with symptom management and clarification of goals as needed. . Attestation To help prompt me to consider important information that might be impacting today's encounter and assessment, information from prior notes written by myself or my colleagues may have been "brought forward" into today's note. My signature on this note, however, is an attestation that I personally performed the exam, history, and/or decision-making noted today, and, unless otherwise indicated, the interactions with patient, family, and staff as well as the review of records all occurred today. I also attest that the listed assessment and stated plan reflect my best clinical judgment today based on the combination of historical information, prior notes, and today's exam/ interactions. When time spent is documented, it refers only to time spent today by the signer, or if indicated, combined time spent today by collaborating physician/nurse practitioner. MARY MILLER September 24, 2016 16:58
--- NOTE | 2016-09-24 19:22 | HHI.PR ---
Subjective Remarks Went into respiratory failure ,and was intubated . Now extubated and alert. O2 sat 99 on N/C at 4l Output was good. Objective Vital Signs Date Time Temp Pulse Resp B/P Pulse Ox O2 Delivery O2 Flow Rate FiO2 09/24/16 18:00 84 09/24/16 16:00 97.8 88 18 97/46 96 09/24/16 16:00 91 09/24/16 14:00 72 09/24/16 12:00 72 09/24/16 12:00 97.7 76 14 97/50 94 09/24/16 11:55 93 Nasal Cannula 2.00 09/24/16 10:00 88 09/24/16 08:56 98 Nasal Cannula 4.00 09/24/16 08:00 98.3 92 27 115/75 98 09/24/16 08:00 92 09/24/16 06:00 80 09/24/16 04:00 97.2 72 28 97/47 95 09/24/16 04:00 72 09/24/16 02:00 79 09/24/16 00:00 78 09/24/16 00:00 98.3 78 17 103/49 93 09/23/16 22:00 90 09/23/16 20:00 93 09/23/16 20:00 98.2 93 28 122/62 97 I/O 09/23/16 09/23/16 09/23/16 09/24/16 09/24/16 09/24/16 07:00 15:00 23:00 07:00 15:00 23:00 Intake Total 800 ml 624 ml Output Total 1751 ml 725 ml Balance -951 ml -101 ml Intake Oral 800 ml 480 ml IV Total 144 ml Output Urine Total 1750 ml 725 ml Stool Total 1 ml # Bowel Movements 0 Result Diagram: 09/24/16 0437 09/24/16 043 Objective Remarks This elderly averagely built white male alert talking HEENT: Head normocephalic. Pupils are reactive. Throat was clear. Nasal mucosa clear NECK: Supple. No bruits. No venous distension. Trachea midline. CHEST: Equal movements with an increased AP diameter, and Bibasilar crackles. HEART: The heart sounds are regular S1-S2 . ABDOMEN: Soft and protuberant without masses. No organomegaly or tenderness. Bowel sounds are active. EXTREMITIES: Edema 1+ . There is no clubbing, decreased peripheral pulses. NEUROLOGIC: weak legs. Reflexes 1 + RECTAL: Exam is deferred. SKIN: Cool and dry. Assessment and Plan Assessment and Plan IMPRESSION 1. Congestive heart failure with acute exacerbation 2. Cardiomyopathy 3. History of diabetes mellitus 4. Chronic obstructive pulmonary disease with emphysema 5. Respiratory failure, chronic 6. History of prostatic hypertrophy 7. Respiratory Failure Plan : 1. O2 at 2 L N/C 2. Continue nebs qid , duoneb. 3. Taper solumedrol to 40 mg bid 4. Cont anticoagulants. 5. Continue Diuretic daily. 6. Cont antibioitcs 7. CBC,BMP in am Elder Wiggins MD September 24, 2016 19:22
[2016-09-24] MEDS: PANTOPRAZOLE SODIUM 40 MG VIAL IV PUSH SCH (20:29)
[2016-09-24] MEDS: methylPREDNISolone SOD SUCC 40 MG/1 ML VIAL IV PUSH SCH (20:30)
[2016-09-24] MEDS: PRAVASTATIN SOD 40 MG TAB PO SCH (20:30)
[2016-09-24] MEDS: LATANOPROST 0.005% OPHT SOLN 2.5 ML BTL RIGHT EYE SCH (20:32)
[2016-09-24 21:17] LABS: CRITICAL VALUE YES
[2016-09-24] MEDS: LORazepam 0.5 MG TAB PO PRN (22:26)
[2016-09-25] VITALS (14 sets, daily range): BP systolic 88–122; BP diastolic 47–57; PULSE 75–84; RESP 19–34; TEMP 97.8–99.2; O2SAT 86–94
--- NOTE | 2016-09-25 05:00 | RADRPT ---
EXAM DATE/TIME: 09/25/2016 04:11 [facility] COMPARISON: CHEST SINGLE AP, September 24, 2016, 4:53. INDICATIONS : Shortness of breath. MEDICAL HISTORY : Myocardial infarction. Chronic obstructive pulmonary disease. SURGICAL HISTORY : CABG. Pacemaker ENCOUNTER: Subsequent ACUITY: 1 week PAIN SCORE: Non-responsive. LOCATION: Bilateral chest FINDINGS: A single AP semierect portable view of the chest was obtained. The patient is less rotated. The patie nt is status post median sternotomy for bypass grafting procedure there is moderate cardiomegaly. Haz y opacity remains in both lungs right greater than left. This is not significantly changed. The left subclavian AV sequential transvenous pacer remains in place. Both costophrenic angles are blunted. Le ft hemidiaphragm is obscured. CONCLUSION: 1. No significant change in the bilateral pulmonary opacities right greater than left. 2. Cardiomegaly and bilateral effusions. Clovis Soliz MD on September 25, 2016 at 4:57 Board Certified Radiologist. This report was verified electronically.
[2016-09-25] MEDS: CHLORHEXIDINE GLUCONATE 2 % 1 PACK (2 CLOTHS)(taper/protocol) TOPICAL SCH (05:45)
[2016-09-25] MEDS: ACETAMINOPHEN 325 MG TAB PO PRN (05:47)
[2016-09-25] MEDS: LEVOTHYROXINE SODIUM 50 MCG TAB PO SCH (05:47)
[2016-09-25] MEDS: CEFEPIME INJ 2,000 MG in SODIUM CHLORIDE 0.9% INJ 100 ML IV SCH ×2 (05:53→15:00)
[2016-09-25] MEDS: LOW DOSE INSULIN NOVOLOG SUPPLEMENTAL SCALE SQ SCH ×3 (05:56→16:00)
[2016-09-25 06:13] LABS: AUTOMATED NEUTROPHIL # 5.6 TH/MM3 (1.8-7.7); BASOPHIL % 0.1 % (0.0-2.0); HEMATOCRIT 32.9 % (39.0-51.0); HEMO FLAGS DIFF FINAL; LYMPH % 5.3 % (9.0-44.0); LYMPHOCYTE # 0.3 TH/MM3 (1.0-4.8); MEAN CELL VOLUME 96.3 FL (80.0-100.0); MEAN CORPUSCULAR HEMOGLOBIN 30.5 PG (27.0-34.0); MEAN CORPUSCULAR HGB CONC 31.6 % (32.0-36.0); MONO % 6.1 % (0.0-8.0); NEUT % 88.5 % (16.0-70.0); PLATELET COUNT 276 TH/MM3 (150-450); RED BLOOD COUNT 3.42 MIL/MM3 (4.50-5.90); RED CELL DISTRIBUTION WIDTH 18.6 % (11.6-17.2); WHITE BLOOD COUNT 6.3 TH/MM3 (4.0-11.0)
[2016-09-25 06:28] LABS: BICARBONATE 41.1 MEQ/L (21.0-32.0); POTASSIUM 4.1 MEQ/L (3.5-5.1)
[2016-09-25] MEDS: BRIMONIDINE TARTRATE 0.2% OPHT SOLN 5 ML BTL RIGHT EYE SCH (07:56)
[2016-09-25] MEDS: FUROSEMIDE 40 MG/4 ML VIAL IV PUSH SCH (07:57)
[2016-09-25] MEDS: TIMOLOL MALEATE 0.5% OPHT SOLN 5 ML BTL RIGHT EYE SCH (07:57)
[2016-09-25] MEDS: SODIUM CHLORIDE 0.9% FLUSH 10 ML FLUSH IVF PRN (07:57)
[2016-09-25] MEDS: ISOSORBIDE MONONITRATE 30 MG TAB PO SCH (07:57)
[2016-09-25] MEDS: TAMSULOSIN HCL 0.4 MG CAP PO SCH (07:58)
[2016-09-25] MEDS: ASCORBIC ACID 500 MG TAB PO SCH (07:58)
[2016-09-25] MEDS: CARVEDILOL 12.5 MG TAB PO SCH (07:58)
[2016-09-25] MEDS: methylPREDNISolone SOD SUCC 40 MG/1 ML VIAL IV PUSH SCH (07:58)
[2016-09-25] MEDS: FERROUS SULFATE 325 MG (65 MG ELEMENTAL IRON) TAB PO SCH (07:58)
[2016-09-25] MEDS: CHLORHEXIDINE 0.12% (ORAL KIT) 15 ML CUP MT SCH (08:00)
--- NOTE | 2016-09-25 08:47 | HHI.FPPN ---
Subjective Remarks PT MORE ALERT RECOGNIZES ME TODAY ON 3L D/W RN D/W HIS SISTER, SHE WANTS HOSPICE FOR HIM Objective Vitals Vital Signs Date Time Temp Pulse Resp B/P Pulse Ox O2 Delivery O2 Flow Rate FiO2 09/25/16 08:24 92 Nasal Cannula 3.00 09/25/16 06:52 18 09/25/16 06:00 81 09/25/16 04:00 97.8 77 19 104/51 94 09/25/16 04:00 75 09/25/16 02:00 76 09/25/16 00:00 98.3 77 30 88/47 86 09/25/16 00:00 77 09/24/16 22:00 82 09/24/16 20:32 95 Nasal Cannula 2.00 09/24/16 20:00 85 09/24/16 20:00 98.0 85 31 115/56 95 09/24/16 18:00 84 09/24/16 16:00 97.8 88 18 97/46 96 09/24/16 16:00 91 09/24/16 14:00 72 09/24/16 12:00 72 09/24/16 12:00 97.7 76 14 97/50 94 09/24/16 11:55 93 Nasal Cannula 2.00 09/24/16 10:00 88 09/24/16 08:56 98 Nasal Cannula 4.00 I/O 09/24/16 09/24/16 09/24/16 09/25/16 09/25/16 09/25/16 07:00 15:00 23:00 07:00 15:00 23:00 Intake Total 1463 ml 440 ml Output Total 500 ml 420 ml Balance 963 ml 20 ml Intake Oral 960 ml 240 ml IV Total 503 ml 200 ml Output Urine Total 500 ml 420 ml # Bowel Movements 1 Result Diagram: 09/25/16 0532 09/25/16 0532 Objective Remarks GENERAL: calm, flat SKIN: Warm and dry. HEAD: Atraumatic. Normocephalic. EYES: Pupils equal and round. No scleral icterus. No injection or drainage. ENT: No nasal bleeding or discharge. Mucous membranes pink and moist. NECK: Trachea midline. No JVD. CARDIOVASCULAR: Regular rate and rhythm. RESPIRATORY: No accessory muscle use. Bilateral congestion and ronchi, R base crackles GASTROINTESTINAL: Abdomen soft, non-tender, nondistended. Hepatic and splenic margins not palpable. MUSCULOSKELETAL: Extremities without clubbing, cyanosis, or edema. No obvious deformities. NEUROLOGICAL: Awake and alert. No obvious cranial nerve deficits. Motor grossly within normal limits. 1 out of 5 muscle strength in the arms and legs. PSYCHIATRIC: Appropriate mood and affect; Medications and IVs Current Medications Medications (Trade) Dose Ordered Sig/Jacek Route Start Time Stop Time Status Last Admin (NS Flush) 2 ml UNSCH PRN IVF 09/15/16 09:00 09/25/16 07:57 (Vitamin C) 500 mg BID PO 09/15/16 21:00 09/25/16 07:58 (Colace) 100 mg BID PO 09/15/16 21:00 09/24/16 20:30 (Ferrous Sulfate) 325 mg DAILY PO 09/16/16 09:00 09/25/16 07:58 (Imdur) 30 mg DAILY PO 09/15/16 10:30 09/25/16 07:57 (Lactulose Liq) 30 ml DAILY PO 09/16/16 09:00 09/24/16 09:26 (Synthroid) 50 mcg DAILY@0600 PO 09/16/16 06:00 09/25/16 05:47 (Refresh Classic 1.4-0.6% Pf Opth Soln) 1 drop TID PRN EACH EYE 09/15/16 10:15 09/24/16 20:32 (Flomax) 0.4 mg DAILY PO 09/16/16 09:00 09/25/16 07:58 Patient Own Medication PT OWN MED: Azopt (Brinzolami... BID RIGHT EYE 09/15/16 21:00 Hold (Mag-Ox) 500 mg DAILY@11 PO 09/15/16 11:00 09/24/16 10:01 (Pravachol) 40 mg HS PO 09/15/16 21:00 09/24/16 20:30 (Xalatan 0.005% Opth Soln) 1 drop HS RIGHT EYE 09/15/16 21:00 09/23/16 22:10 (Pill Splitter) 1 ea UNSCH PRN OTHER 09/15/16 10:45 (Alphagan 0.2% Opth Soln) 1 drop Q12HR RIGHT EYE 09/15/16 21:00 09/25/16 07:56 (Timoptic 0.5% Opth Soln) 1 drop Q12HR RIGHT EYE 09/15/16 21:00 09/25/16 07:57 (D50w (Vial) Inj) 25 ml UNSCH PRN IV PUSH 09/15/16 11:30 (Glucagon Inj) 1 mg UNSCH PRN OTHER 09/15/16 11:30 (Coreg) 12.5 mg BID PO 09/15/16 21:00 09/25/16 07:58 (Tylenol) 650 mg Q4H PRN PO 09/16/16 14:30 09/25/16 05:47 (Ativan) 0.5 mg Q6H PRN PO 09/16/16 14:30 09/24/16 22:26 Furosemide 40 mg 40 mg DAILY IV PUSH 09/21/16 18:00 09/25/16 07:57 Pharmacy Profile Note 0 ml @ 0 mls/hr UNSCH OTHER 09/22/16 15:00 Cefepime HCl 2000 mg/Sodium Chloride 100 ml @ 200 mls/hr Q8H IV 09/22/16 15:00 09/25/16 05:53 (Vancomycin Inj/ NS 500 ml Inj) 520 ml @ 250 mls/hr Q24H IV 09/22/16 16:00 09/24/16 16:32 Miscellaneous Information SPECIFIC LAB TO BE DRAWN:VANCOMYIN TROUGH DATE TO... ONCE ONCE .XX 09/26/16 15:45 09/26/16 15:46 (Levemir Inj) 7 units Q12HR SQ 09/22/16 21:00 09/24/16 20:35 (Protonix Inj) 40 mg Q24H IV PUSH 09/22/16 21:00 09/24/16 20:29 (Zofran Inj) 4 mg Q6HR PRN IV PUSH 09/22/16 16:00 (Peridex 0.12% Liq) 15 ml BID@08,20 MT 09/22/16 20:00 09/24/16 10:26 Miscellaneous Information Patient in critical care unit? Ass... Q361D .XX 09/22/16 19:15 (Chlorhexidine 2% Cloth) 3 pack DAILY@04 TOPICAL 09/23/16 04:00 09/27/16 04:01 09/25/16 05:45 Chlorhexidine Gluconate 3 pack 3 pack UNSCH PRN TOPICAL 09/22/16 19:15 09/27/16 19:03 Potassium Chloride 100 ml @ 50 mls/hr Q2H PRN IV 09/23/16 10:00 (KCl 20 Meq Premix Inj) 100 ml @ 50 mls/hr Q2H PRN IV 09/23/16 10:00 Potassium Bicarb/ Potassium Chloride 50 meq 50 meq UNSCH PRN PO 09/23/16 10:00 Potassium Chloride 100 ml @ 25 mls/hr UNSCH PRN IV 09/23/16 10:00 Potassium Chloride 100 ml @ 50 mls/hr Q2H PRN IV 09/23/16 10:00 (Magnesium Sulfate Inj/NS Inj) 100 ml @ 50 mls/hr UNSCH PRN IV 09/23/16 10:00 Magnesium Oxide 800 mg 800 mg UNSCH PRN PO 09/23/16 10:00 (Magnesium Sulfate Inj/NS Inj) 100 ml @ 50 mls/hr UNSCH PRN IV 09/23/16 10:00 Potassium Phosphate 2000 mg 2,000 mg Q4H PRN PO 09/23/16 10:00 09/23/16 10:18 (Sodium Phosphate Inj/NS 250 ml Inj) 250 ml @ 42 mls/hr UNSCH PRN IV 09/23/16 10:00 (K-Phos) 2,000 mg UNSCH PRN PO/TUBE 09/23/16 10:00 (Haldol) 5 mg Q4H PRN PO 09/24/16 01:15 (SoluMEDROL INJ) 40 mg Q12H IV PUSH 09/24/16 20:00 09/25/16 07:58 A/P Assessment and Plan -VDRF: resolved. -HYPERCARBIA -UTI -SEPSIS -Acute on chronic systolic heart failure with history of cardiomyopathy with known ejection fraction of 25% status post AICD, -Pleural effusion- consult pulm, diurese, thoracentesis 09/19, -Cardiorenal syndrome -Anoxic encephalopathy- Lasix 40 mg every 12 monitor output, Coreg 12.5 mg twice a day, Eliquis -Diabetes type 2 continue on insulin regimen -SIXTO: Gentle IVF's. Hold diuretics, am labs. Renal Us negative. Nephrology consult appreciated. -chronic kidney disease. -Hyponatremia- Monitor lytes -Hyperkalemia: s/p kayexelate x one, recheck K -History of GI bleed in the past continue on PPI -BPH- continue Flomax Hospice consult Srinivas Naylor MD September 25, 2016 08:47
[2016-09-25] MEDS: INSULIN DETEMIR 100 UNITS/ML VIAL SQ SCH (09:00)
[2016-09-25] MEDS: DOCUSATE SODIUM 100 MG CAP PO SCH (09:00)
[2016-09-25] MEDS: LACTULOSE SYRUP 20 GM/30 ML CUP PO SCH (09:00)
[2016-09-25] MEDS: MAGNESIUM OXIDE 400 MG TAB PO SCH (11:00)
--- NOTE | 2016-09-25 12:24 | HHI.PR ---
Subjective Remarks Awake and alert. O2 sat 99 on N/C at 2l. wants to go to hospice. Wants eye doctor Objective Vital Signs Date Time Temp Pulse Resp B/P Pulse Ox O2 Delivery O2 Flow Rate FiO2 09/25/16 10:00 84 09/25/16 09:00 80 34 113/54 91 09/25/16 08:45 80 22 93 09/25/16 08:30 84 26 92 09/25/16 08:24 92 Nasal Cannula 3.00 09/25/16 08:15 84 31 93 09/25/16 08:00 98.5 83 25 111/55 93 09/25/16 08:00 84 09/25/16 06:52 18 09/25/16 06:00 81 09/25/16 04:00 97.8 77 19 104/51 94 09/25/16 04:00 75 09/25/16 02:00 76 09/25/16 00:00 98.3 77 30 88/47 86 09/25/16 00:00 77 09/24/16 22:00 82 09/24/16 20:32 95 Nasal Cannula 2.00 09/24/16 20:00 85 09/24/16 20:00 98.0 85 31 115/56 95 09/24/16 18:00 84 09/24/16 16:00 97.8 88 18 97/46 96 09/24/16 16:00 91 09/24/16 14:00 72 I/O 09/24/16 09/24/16 09/24/16 09/25/16 09/25/16 09/25/16 07:00 15:00 23:00 07:00 15:00 23:00 Intake Total 1463 ml 440 ml Output Total 500 ml 420 ml Balance 963 ml 20 ml Intake Oral 960 ml 240 ml IV Total 503 ml 200 ml Output Urine Total 500 ml 420 ml # Bowel Movements 1 Result Diagram: 09/25/16 0532 09/25/1632 Objective Remarks This elderly averagely built white male alert HEENT: Head normocephalic. Pupils are reactive. Throat was clear. Nasal mucosa clear NECK: Supple. No bruits. No venous distension. Trachea midline. CHEST: Equal movements with an increased AP diameter, and occ Bibasilar crackles. HEART: The heart sounds are regular S1-S2 . ABDOMEN: Soft and protuberant without masses. No organomegaly or tenderness. Bowel sounds are active. EXTREMITIES: Min Edema . There is no clubbing, decreased peripheral pulses. NEUROLOGIC: weak legs. Reflexes 1 + RECTAL: Exam is deferred. SKIN: Cool and dry. Assessment and Plan Assessment and Plan IMPRESSION 1. Congestive heart failure with acute exacerbation 2. Cardiomyopathy 3. History of diabetes mellitus 4. Chronic obstructive pulmonary disease with emphysema 5. Respiratory failure, chronic 6. History of prostatic hypertrophy 7. Respiratory Failure Plan : 1. O2 at 2 L N/C 2. Continue nebs qid , duoneb. 3. D/c solumedrol 4. Cont anticoagulants. 5. Continue Diuretic daily. 6. Cont antibioitcs 7. To hospice care. Elder Wiggins MD September 25, 2016 12:16
[2016-09-26] MEDS ORDERED: FUROSEMIDE 40 MG TAB PO SCH (09:00)
[2016-09-26] MEDS ORDERED: PHARMACY ORDERED LAB ONE (15:45)
--- NOTE | 2016-10-01 09:13 | RSPPFT ---
DATE OF PROCEDURE: 09/18/16 COMMENTS: Spirometry demonstrates an FEV1 of 0.3 at 9% of predicted, FVC of .49 at 10%, FEF 25-75 is 5%. Post-bronchodilator study demonstrated some improvements suggesting a response. Lung volumes were not completed. Flow volume loops are not recorded well. IMPRESSION: 1. Severe restrictive disease. 2. Additional moderate to severe obstructive disease. 3. Significant response to use of bronchodilator indicating some reversibility.
--- NOTE | 2016-10-23 17:35 | HHI.DS ---
Discharge Summary Admission Date September 15, 2016 at 10:14 Discharge Date: September 25, 2016 Admitting Diagnosis CHF exacerbation, dyspnea (1) Congestive heart failure with cardiomyopathy Diagnosis: Principal (2) Renal insufficiency Diagnosis: Secondary PE at Discharge GENERAL: SKIN: Warm and dry. HEAD: Atraumatic. Normocephalic. EYES: Pupils equal and round. No scleral icterus. No injection or drainage. ENT: No nasal bleeding or discharge. Mucous membranes pink and moist. NECK: Trachea midline. No JVD. CARDIOVASCULAR: Regular rate and rhythm. RESPIRATORY: No accessory muscle use. Clear to auscultation. Breath sounds equal bilaterally. GASTROINTESTINAL: Abdomen soft, non-tender, nondistended. Hepatic and splenic margins not palpable. MUSCULOSKELETAL: Extremities without clubbing, cyanosis, or edema. No obvious deformities. NEUROLOGICAL: Awake and alert. No obvious cranial nerve deficits. Motor grossly within normal limits. 1 out of 5 muscle strength in the arms and legs. Normal speech. PSYCHIATRIC: Appropriate mood and affect; insight and judgment normal. Hospital Course 70 y cm, ADMIT WITH DX OUTLINED BELOW, AND COURSE WAS FOLLOWS: -VDRF: resolved. -HYPERCARBIA -UTI -SEPSIS -Acute on chronic systolic heart failure with history of cardiomyopathy with known ejection fraction of 25% status post AICD, -Pleural effusion- consult pulm, gwendolyn, thoracentesis 09/19, -Cardiorenal syndrome -Anoxic encephalopathy- Lasix 40 mg every 12 monitor output, Coreg 12.5 mg twice a day, Eliquis -Diabetes type 2 continue on insulin regimen -SIXTO: Gentle IVF's. Hold diuretics, am labs. Renal Us negative. Nephrology consult appreciated. -chronic kidney disease. -Hyponatremia- Monitor lytes -Hyperkalemia: s/p kayexelate x one, recheck K -History of GI bleed in the past continue on PPI -BPH- continue Flomax Patient is discharging to hospice today. Will transfer. Discharge Instructions DIET: Follow Instructions for: As Tolerated, No Restrictions Activities you can perform: Regular-No Restrictions Additional Information transfer to hospice. dc meds except prns and see hospice admit meds.... Srinivas Naylor MD Oct 23, 2016 17:35
== END 2016-09-25 18:00 | disposition hospice, inpatient (51) | DRG 291 ==
LOC: NEPC 08:34 → NEDA 10:14 → N04A 12:14 → HIMN 09-22 13:40
PROVIDERS: ADMIT Family Medicine; ATTEND Family Medicine
PROC: 0W9B3ZZ Drainage of Left Pleural Cavity, Percutaneous Approach (ICD-10-PCS; principal; 2016-09-19)
PROC: 5A1935Z Respiratory Ventilation, Less than 24 Consecutive Hours (ICD-10-PCS; 2016-09-22)
PROC: 0BH17EZ Insertion of Endotracheal Airway into Trachea, Via Natural or Artificial Opening (ICD-10-PCS; 2016-09-22)
PROC: 5A09357 Assistance with Respiratory Ventilation, Less than 24 Consecutive Hours, Continuous Positive Airway Pressure (ICD-10-PCS; 2016-09-22)
DX: I50.23 Acute on chronic systolic (congestive) heart failure (principal); G93.41 Metabolic encephalopathy; J96.21 Acute and chronic respiratory failure with hypoxia; A41.9 Sepsis, unspecified organism; J90 Pleural effusion, not elsewhere classified; J44.1 Chronic obstructive pulmonary disease with (acute) exacerbation; I42.0 Dilated cardiomyopathy; E87.1 Hypo-osmolality and hyponatremia; I13.0 Hypertensive heart and chronic kidney disease with heart failure and stage 1 through stage 4 chronic kidney disease, or unspecified chronic kidney disease; N39.0 Urinary tract infection, site not specified; E11.22 Type 2 diabetes mellitus with diabetic chronic kidney disease; Z79.4 Long term (current) use of insulin; I27.2 Other secondary pulmonary hypertension; N18.9 Chronic kidney disease, unspecified; N28.9 Disorder of kidney and ureter, unspecified; N40.0 Benign prostatic hyperplasia without lower urinary tract symptoms; Z66 Do not resuscitate; Z51.5 Encounter for palliative care; E03.9 Hypothyroidism, unspecified; I25.2 Old myocardial infarction; Z95.810 Presence of automatic (implantable) cardiac defibrillator; Z79.82 Long term (current) use of aspirin; E87.5 Hyperkalemia; I25.10 Atherosclerotic heart disease of native coronary artery without angina pectoris; H40.9 Unspecified glaucoma; H54.41 Blindness, right eye, normal vision left eye; Z87.891 Personal history of nicotine dependence; Z86.74 Personal history of sudden cardiac arrest
CPT/HCPCS: 31500; 36600; 71010; 76604; 76775; 76937; 80048; 80053; 81001; 82150; 82306; 82550; 82565; 82805; 82945; 82948; 83605; 83615; 83735; 83880; 83970; 83986; 84100; 84157; 84484; 85025; 85027; 85610; 85730; 86403; 87015; 87040; 87070; 87077; 87086; 87102; 87106; 87116; 87186; 87205; 87206; 87641; 88112; 88305; 89051; 93005; 94002; 94003; 94060; 94150; 94640; 94664; 96374; C9113; J0456; J0692; J0696; J1120; J1644; J1815; J1940; J2920; J2930; J3370; J7030; J7040; J7050; J7644